=== PATIENT | female | born 1965 | race Caucasian/White ===

== ENCOUNTER 2023-11-06 06:53 | Emergency (ER) | payer OTHER, SELFPAY ==
[2023-11-06 06:55] VITALS: BP 127/89; BMI 27.6
--- NOTE | 2023-11-06 07:08 | ED.GENMED ---
History of Present Illness
General
Chief Complaint: Abdominal Pain
Source: patient and ambulance crew
Exam Limitations: none
Time Seen by Provider: 11/06/23 06:57
Nursing documentation reviewed up to this point in time: agreed with
Travel History
Have you had any contact with someone who has COVID-19?: No
Do you have any symptoms of coronavirus? Fever > 100 degrees, chills, cough, shortness of breath, sore throat, loss of taste or smell, muscle aches, or headache?: No
History of Present Illness
History of Present Illness:
58-year-old female presents emergency department complaining of redness and irritation around colostomy. Symptoms ongoing for the past month. She has been cared for by [facility]. She is concerned because she thought they cut
the colostomy too large.
Past History
Past History
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
Renal calculus, Parotid mass); Negative Asthma or Hypercholesterolemia
ED Past Surgical History: Appendectomy, Bowel resection, Cardiac (Cardiac stent), Gynecological (Cervical Cancer with radiaion and Chemo, Hysterectomy), Orthopedic (Left ankle, left knee surger X 2, Left wrist surgery, Right knee surgery, ),
Tonsilectomy (adnoids) and Other (Colostomy changed to Ileostomy, Ear tubes, Right parotidectomy, Left partial foot amputation)
Social History
Tobacco: Smoker (1ppd)
Alcohol: None
Drug: None
Personal:
Living: with family
Employment: Not employed
Family History
Family History: Early CAD (in patient's father)
Review of Systems
Review of Systems
Allergies reviewed?: Yes
All Other Systems: Not applicable
Constitutional: Reports no symptoms
EENT: Reports no symptoms
Respiratory: Reports no symptoms
Cardiac: Reports no symptoms
ABD/GI: Reports no symptoms
: Reports no symptoms
Musculoskeletal: Reports no symptoms
Skin: Reports rash
Neurological: Reports no symptoms
Endocrine: Reports no symptoms
Hematologic/Lymphatic: Reports no symptoms
Psychiatric: Reports no symptoms
Phy Exam
Physical Exam
Physical Exam:
Physical Exam
General: no apparent distress, not acutely ill
Neck: supple. no meningeal signs. normal posterior pharynx
Heart: s1/s2 regular rate and rhythm, no murmur. equal radial
pulses.
HEENT: Pupils equal round reactive to light, EOMI
Lungs: no acute respiratory distress. clear bilaterally
Abdomen: normal bowel sounds. not tender. no CVAT
Neuro: alert and oriented. no focal neurological deficits cranial nerves II through XII intact
Skin: Erythema about colostomy site
Psychiatric: well kept. interactive and cooperative
Extremities: no edema. no calf tenderness. negative homans. good distal pulses 1, left second and third toe amputation
Course
Orders/Labs/Results
Orders:
Orders
11/06/23 07:07
WOUND/OSTOMY CONSULT Routine
Reason for Consult: irritation around colostomy site
Vital Signs
Initial and Last Documented VS:
Initial Vital Signs
Temp Pulse Resp BP Pulse Ox
98.1 F 66 18 127/89 100
11/06/23 06:55 11/06/23 06:55 11/06/23 06:55 11/06/23 06:55 11/06/23 06:55
Last Documented Vital Signs
Temp Pulse Resp BP Pulse Ox
98.1 F 66 18 127/89 100
11/06/23 06:55 11/06/23 06:55 11/06/23 06:55 11/06/23 06:55 11/06/23 06:55
MDM/Problems Addressed
Differential Diagnosis Includes:
cellulitis, colostomy dysfunction
MDM/Problems Addressed:
58 yo female with colostomy irritation due to poor fitting colostomy. Colostomy care consulted, gave proper fitting colostomy. D/c to NH.
Chronic conditions affecting care: Previous abdomnial surgery and Cancer
Acute Exacerbation and/or Progression of Chronic Illness: Previous abdomnial surgery and Cancer
*Pulse Oximetry
Patient hypoxic: no
*EKG
Interpreted by ED Provider?: NA
*Transcribing Operators Supervisor Interpretation
Rate: Transcribing Operators Supervisor- N/A
*Critical Care Note
Total Time (30-74mins, 75-104mins- exclusive of procedures): Not Applicable
Patient Management
Social determinants of health affecting care: Living situation and Strong social support
Discussion with other providers: Rn Placement (ostomy care and colorectal PA and surgeon Dr. Cosme)
Escalation/DeEscalation of care consider admission/obs:
admit not indicated
ED Attending Note
-
Portions of this chart may have been created with voice recognition software.� Occasional wrong word or��sound alike� substitutions may have occurred due to the inherent limitations of voice recognition software.
Discharge Plan
Departure
Patient Disposition: Jail/SNF
Date of Disposition: 11/06/23
Time of Disposition: 10:04
Patient with high blood pressure during this ER visit?: Yes
Condition: Good
Discharge Problem:
Colostomy complication, unspecified
Instructions: Colostomy care, BLOOD PRESSURE
Prescriptions:
No Action
levothyroxine 25 mcg tablet
25 mcg PO DAILY AT 0700
gabapentin 400 mg Capsule
400 mg PO TID
atorvastatin [Lipitor] 10 mg Tablet
10 mg PO HS
amlodipine [Norvasc] 10 mg Tablet
10 mg PO DAILY
clopidogrel [Plavix] 75 mg Tablet
75 mg PO DAILY
Patient Comments:
08/25/23 may have stop for recent dental process
carvedilol [Coreg] 3.125 mg Tablet
3.125 mg PO BID
pramipexole 0.5 mg Tablet
0.5 mg PO TID
duloxetine [Cymbalta] 60 mg Capsule,Delayed Release(Dr/Ec)
60 mg PO DAILY
oxycodone-acetaminophen [Endocet] 5-325 mg tablet
1 tab PO Q4HPRN PRN (Reason: tooth pain)
Patient Comments:
07/30/2023: last filled 07/28/23, 15 tabs for 3 days from [facility]
ondansetron HCl 4 mg tablet
4 mg PO DAILYPRN PRN (Reason: nausea and vomiting)
hydrocodone-acetaminophen 10-300 mg Tablet
1 tab PO QID
Referrals:
Michael Vargas MD [Family Provider] - Call in 1-3 days for appt
Interventions
Interventions:
*Risk Screen - Suicide Last Done: 11/06/23 06:55
*General Assessment Last Done: 11/06/23 06:55
*Neglect/Abuse Screening Last Done: 11/06/23 06:55
ED- Fall Risk Assessment Last Done: 11/06/23 07:00
*ED COVID-19 Vaccine History Last Done: 11/06/23 06:55
NF-Luascb-Vyfzgfnggm Assessment Last Done: 11/06/23 08:28
--- NOTE | 2023-11-06 09:30 | WOUNDNOTE ---
LILLIANA RN NOTE: Patient admitted with irritation around colostomy site, patient well known to service. [facility] and states the staff have been cutting out wafer too large causing skin irritation. Patient confirmed she is
still having large liquid output. She states that the belt did not do anything in her opinion, has not been using. Since last seen patient states she had a stroke and now has a feeding tube proximal to stoma. FT does not appear to be having any
contributing factors toward leaking ostomy, used only at night, no leakage. Patient states she started eating again and is improving since the stroke, plans to return home. Stoma pink, oval slightly budded, peristomal skin red and irritated, painful
to touch. Applied advanced skin prep to red areas. Angélica seal around stoma, with convex 2 3/4 wafer cut to fit stoma and high output pouch to Aubrey SBD bag. Second set of appliance with Angélica seal (belt if needed) given to patient and instructed
how to apply and connect to drainage system. Detailed instructions given with [employer] codes to order supplies. Patient able to turn self to side, sacrum and heels blanchable red. Patient for transfer back to OR, can call if needs further
assistance.
== END 2023-11-06 12:06 ==
LOC: EMR 06:53
PROVIDERS: EMERGENCY PHYSICIAN Emergency Medicine; FAMILY PHYSICIAN Internal Medicine
DX: K94.03 Colostomy malfunction (principal); I25.10 Atherosclerotic heart disease of native coronary artery without angina pectoris; I10 Essential (primary) hypertension; G47.30 Sleep apnea, unspecified; F32.A Depression, unspecified; E11.40 Type 2 diabetes mellitus with diabetic neuropathy, unspecified; M06.9 Rheumatoid arthritis, unspecified; M79.7 Fibromyalgia; E03.9 Hypothyroidism, unspecified; E11.9 Type 2 diabetes mellitus without complications; K52.0 Gastroenteritis and colitis due to radiation; F43.10 Post-traumatic stress disorder, unspecified; M19.90 Unspecified osteoarthritis, unspecified site; F17.200 Nicotine dependence, unspecified, uncomplicated; I25.2 Old myocardial infarction; Z95.5 Presence of coronary angioplasty implant and graft; Z85.41 Personal history of malignant neoplasm of cervix uteri; Z86.73 Personal history of transient ischemic attack (TIA), and cerebral infarction without residual deficits; Z87.442 Personal history of urinary calculi; Z98.0 Intestinal bypass and anastomosis status; Z90.710 Acquired absence of both cervix and uterus; Z91.040 Latex allergy status; Z88.0 Allergy status to penicillin; Z88.2 Allergy status to sulfonamides; Z88.8 Allergy status to other drugs, medicaments and biological substances; Z91.048 Other nonmedicinal substance allergy status
CPT/HCPCS: 99283

== ENCOUNTER 2024-01-23 03:17 | Inpatient (IN) | payer MEDICARE, SELFPAY ==
[2024-01-22 20:50] VITALS: BMI 29.0
[2024-01-22 20:51] VITALS: BP 139/96
[2024-01-22 20:52] VITALS: BP 139/96
[2024-01-22 21:00] VITALS: BP 102/67
[2024-01-22 21:02] LABS: % Basophils 0.3 % (0-2); % Eosinophils 0.6 % (0-6); % Immature Granulocytes 0.4 % (0-0.5); % Monocytes 3.7 % (1.7-9.3); Absolute Eosinophils 0.1 10^3/uL (0-0.7); Absolute Immature Granulocytes 0.1 10^3/uL (0-0.05); Absolute Lymphocytes 0.5 10^3/uL (1.2-3.4); Absolute Monocytes 0.5 10^3/uL (0.1-0.6); Absolute Neutrophils 11.7 10^3/uL (1.4-6.5); Hematocrit 35.7 % (37.0-47.0); Hemoglobin 12.3 g/dL (12.0-16.0); Mean Corp Hgb Conc. 34.5 g/dL (33.0-37.0); Mean Corpuscular Hgb 31.4 pg (27.0-31.0); Mean Corpuscular Volume 91.1 fL (81.0-99.0); Mean Platelet Volume 8.5 fL (7.4-10.4); Nucleated Red Blood Cells % 0 %; Platelet Count 208 10^3/uL (130-400); Red Blood Cell Count 3.92 10^6/uL (4.20-5.40); Red Cell Dist. Width 13.6 % (11.5-14.5); White Blood Cell Count 12.9 10^3/uL (4.8-10.8)
[2024-01-22 21:28] LABS: ALT (SGPT) 19 U/L (0-35); AST (SGOT) 19 U/L (14-36); Albumin 4.5 g/dl (3.5-5.0); Alkaline Phosphatase 97 U/L (38-126); Blood Urea Nitrogen 31 mg/dl (7-17); Calcium 10.7 mg/dl (8.4-10.2); Carbon Dioxide 15 mmol/L (22-30); Chloride 110 mmol/L (98-107); Estimated Creatinine Clearance 34 ml/min; Glucose 131 mg/dl (70-99); Lipase 83 U/L (23-300); Sodium 137 mmol/L (135-145); Total Bilirubin 0.4 mg/dl (0.2-1.3); Total Protein 8.7 g/dl (6.3-8.2); eGFR 28.42
--- NOTE | 2024-01-22 21:31 | ED.GENMED ---
History of Present Illness
General
Chief Complaint: Abdominal Pain
Source: patient
Exam Limitations: none
Time Seen by Provider: 01/22/24 21:06
Travel History
Have you had any contact with someone who has COVID-19?: No
Do you have any symptoms of coronavirus? Fever > 100 degrees, chills, cough, shortness of breath, sore throat, loss of taste or smell, muscle aches, or headache?: No
History of Present Illness
History of Present Illness:
This is a 58 year old female that is brought in by ambulance with c/o vomiting. Patient states that she has been congested for the past week. States that over the pat 2 days she has gotten worse. States that she also has chest congestion and that
she started with vomiting today. States that she has pain in the abd. States that she has chest pain, SOB, nausea, vomiting, headache, occasional dizziness. Denies any fever, chills, urinary burning.
Past History
Past History
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
Renal calculus, Parotid mass, LVH, GI bleeding, Anemia, PTSD); Negative Asthma or Hypercholesterolemia
ED Past Surgical History: Appendectomy, Bowel resection, Cardiac (Cardiac stent), Gynecological (Cervical Cancer with radiaion and Chemo, Hysterectomy), Orthopedic (Left ankle, left knee surgery X 2, Left wrist surgery, Right knee surgery, ),
Tonsilectomy (adnoids) and Other (Colostomy changed to Ileostomy, Ear tubes, Right parotidectomy, Left great toe and second Toe amputation)
Social History
Tobacco: Smoker (1ppd)
Alcohol: None
Drug: None
Personal:
Living: snf
Employment: Not employed
Family History
Family History: Early CAD (in patient's father)
Review of Systems
Review of Systems
All Other Systems: ROS reviewed and negative except as documented in HPI and ROS
Constitutional: Reports no symptoms; Denies fever or chills
EENT: Reports no symptoms
Respiratory: Reports cough and trouble breathing
Cardiac: Reports chest pain
ABD/GI: Reports abdominal pain, nausea and vomiting
: Reports no symptoms; Denies dysuria, frequency, incontinence or urgency
Musculoskeletal: Reports no symptoms
Skin: Reports no symptoms
Neurological: Reports dizzy (occasional) and headache
Psychiatric: Reports no symptoms
Phy Exam
General Physical Exam
General Presentation: no apparent distress
General age: appears older than age
General Skin: warm and dry
General Habitus: debilitated and elderly
General Mental: alert
General Hydration: appears well hydrated
ENT Exam
ENT Exam: TM's normal, pharynx normal and neck supple
Eye Exam
Eye Exam: EOMI
Cardiovascular Exam
Cardiovascular Exam: regular rate/rhythm, no edema and normal peripheral pulses
Pulmonary Exam
Pulmonary Exam: no respiratory distress, chest non tender, no rhonchi, no wheezing and other (Rale left base, Moist cough noted)
Gastrointestinal Exam
Gastrointestinal Exam: no organomegaly, no pulsatile mass, non distended, tender (mid and right sided tenderness with palpation) and other (Hypoactive bowel sounds)
External Findings: gastrostomy tube and ileostomy
Musculoskeletal Exam
Musculoskeletal Exam: edema and other (No movement on her own of right leg)
Skin Exam
Skin Exam: normal color, warm/dry, no rash and no petechia
Psychiatric Exam
Psychiatric Exam: normal mood/affect
Course
Orders/Labs/Results
Orders:
Orders
01/22/24 20:52
Complete Blood Count/With Diff Urgent
Comprehensive Metabolic Panel Urgent
Lipase Urgent
01/22/24 20:56
Influenza A+B Rapid Molecular Urgent
JIMBO Source: Nasal Swab
Specimen Description:
01/22/24 21:30
CT Abd/pel (oral only)-DH Only Urgent
Comment:
Reason For Exam: Mid and right sided abd pain
0.9% Sodium Chloride 500 ml [Nss] 500 ml IV BOLUS
Iohexol [Omnipaque] See Protocol PO NOW STA
CR Chest - 2 Views Urgent
Comment:
Reason For Exam: COugh congestion
01/22/24 21:36
Ondansetron Injectable [Zofran] 4 mg IV NOW STA
01/22/24 21:48
Troponin I Urgent
01/22/24 21:51
Acetaminophen 1000MG/100Ml [Ofirmev] 1,000 mg in 100 ml .ROUTE .STK-MED
01/22/24 21:53
Acetaminophen 1000MG/100Ml [Ofirmev] 1,000 mg IV NOW STA
01/22/24 22:44
Cefepime HCl [Maxipime] 1,000 mg IV NOW STA
Vancomycin 1 Gram/200 ml [Vancocin] 1 gram in 200 ml IV NOW
Abnormal Lab Results
01/22/24
20:52
WBC 12.9 H 10^3/uL
(4.8-10.8)
RBC 3.92 L 10^6/uL
(4.20-5.40)
Hct 35.7 L %
(37.0-47.0)
MCH 31.4 H pg
(27.0-31.0)
Abs Immat Gran (auto) 0.1 H 10^3/uL
(0-0.05)
Absolute Neuts (auto) 11.7 H 10^3/uL
(1.4-6.5)
Absolute Lymphs (auto) 0.5 L 10^3/uL
(1.2-3.4)
Neutrophils % 91.0 H %
(42.2-75.2)
Lymphocytes % 4.0 L %
(20.5-51.1)
Chloride 110 H mmol/L
(98-107)
Carbon Dioxide 15 L mmol/L
(22-30)
BUN 31 H mg/dl
(7-17)
Creatinine 2.0 H mg/dL
(0.6-1.0)
Glucose 131 H mg/dl
(70-99)
Calcium 10.7 H mg/dl
(8.4-10.2)
Total Protein 8.7 H g/dl
(6.3-8.2)
01/22/24 20:52
01/22/24 20:52
Leukocytosis, Chloride elevation, carbon dioxide low. Chronic renal insufficiency, Hyperglycemia, Hypercalcemia, Total protein elevated. Lipase normal at 83, negative for Influenza, Troponin <0.012
Vital Signs
Initial and Last Documented VS:
Initial Vital Signs
Temp Pulse Resp Pulse Ox
98.7 F 94 14 94
01/22/24 20:50 01/22/24 20:50 01/22/24 20:50 01/22/24 20:50
Last Documented Vital Signs
Temp Pulse Resp BP Pulse Ox
98.7 F 85 23 144/75 93
01/22/24 20:50 01/22/24 22:45 01/22/24 22:45 01/22/24 22:00 01/22/24 22:45
MDM/Problems Addressed
Differential Diagnosis Includes:
PNA, bowel obstruction
MDM/Problems Addressed:
This is a 58 year old female that comes in by Multiple complaints. States that she had congestion, Vomiting abd pain. States that the congestion started a week ago and the vomiting started today. States that she has not eaten in 2-3 days.
Will get labs, CT abd/pelvis. Give Zofran and IV fluids
CT cont- and L5 vertebral bodies. Post hysterectomy. Bilateral renal calculi. Mild levoscoliosis. Hospitalist notified about admission with Pneumonia. Also notified of CT findings os SBO. Patient given IV antibiotics for Pneumonia.
Chronic conditions affecting care: Previous abdomnial surgery
Acute Exacerbation and/or Progression of Chronic Illness: Previous abdomnial surgery
*Radiology
Radiology exam reviewed: radiology read reviewed (ct- STATUS POST COLECTOMY WITH A PARAG'S pouch and left lower quadrant ostomy. Diffusely fluid-filled and dilated loops of small bowel are seen, with a gradual transition to somewhat decompressed
fecalized loops of small bowel seen distally, with decompressed loops seen extending into the ostomy.), all reviewed NAD by ED Provider (CT cont- Constellation of findings likely represents small bowel obstruction with a transition point related to
the ostomy. Multifocal nodular and consolidative opacities in the right lower lobe, most likely representing Pneumonia, possible in the setting of aspiration. Follow-up to radiographic) and other (CT cont- resolution is recommended. Enteric contrast
is seen up to the level of the duodenum at this time. G-tube in place. Additional findings: SFA to SFA graft. Vascular calcifications including coronary artery calcifications. DJD. Pronounced sclerotic endplate degenerative change involving L3,L4 )
*Pulse Oximetry
Patient hypoxic: no
*Critical Care Note
Total Time (30-74mins, 75-104mins- exclusive of procedures): Not Applicable
ED Attending Note
-
Portions of this chart may have been created with voice recognition software.� Occasional wrong word or��sound alike� substitutions may have occurred due to the inherent limitations of voice recognition software.
Discharge Plan
Departure
Patient Disposition: Admit
Date of Disposition: 01/23/24
Time of Disposition: 00:45
Admit to: Telemetry
Presentation/result/management discussed w/ accepting MD/DO: Hospitalist
Patient with high blood pressure during this ER visit?: Yes
Condition: Good
Covid-19: Not Applicable
Discharge Problem:
Lower lobe pneumonia, SBO (small bowel obstruction)
Prescriptions:
No Action
clopidogrel [Plavix] 75 mg Tablet
75 mg PO DAILY
Patient Comments:
08/25/23 may have stop for recent dental process
atorvastatin 40 mg tablet
40 mg PO HS
buspirone 5 mg Tablet
5 mg PO BID
acetaminophen 325 mg Tablet
650 mg PO Q4H PRN (Reason: mild pain/temp>100F)
ammonium lactate 12 % Lotion
1 applic TOPICAL BID
Patient Comments:
01/22/2024: apply to arms/legs/back
loperamide [Imodium A-D] 2 mg Capsule
2 mg PO Q6H PRN (Reason: diarrhea)
hydrocodone-acetaminophen 5-325 mg Tablet
1 tab PO Q6H PRN (Reason: moderate to severe pain)
amlodipine 5 mg tablet
5 mg PO DAILY
venlafaxine 100 mg tablet
100 mg PO BID
magnesium hydroxide [Milk of Magnesia] 400 mg/5 mL Suspension
30 ml PO DAILY PRN (Reason: if no bm x 3 days)
sodium bicarbonate 650 mg Tablet
650 mg PO Q8H
levothyroxine 50 mcg Tablet
50 mcg PO DAILY
bisacodyl [Dulcolax (bisacodyl)] 10 mg Suppository
10 mg DE DAILY PRN (Reason: if mom is ineffective after 24hrs)
Fleet Enema 19-7 gram/118 mL Enema
118 ml DE DAILY PRN (Reason: if dulcolax is ineffective after 24hrs)
gabapentin 300 mg capsule
300 mg PO HS
aspirin 81 mg Tablet,Chewable
81 mg PO DAILY
gabapentin 100 mg capsule
100 mg PO Q6H PRN (Reason: mild-mod pain)
loratadine 10 mg Tablet
10 mg PO DAILY
cholecalciferol (vitamin D3) [Vitamin D3] 25 mcg (1,000 unit) Tablet
50 mcg PO DAILY
pantoprazole [address] For Susp In Packet
20 mg PO DAILY
melatonin 5 mg Tablet
5 mg PO HS
guaifenesin 600 mg Tablet Extended Release 12hr
600 mg PO BID
Referrals:
Michael Vargas MD [Family Provider] -
Interventions
Interventions:
*Risk Screen - Suicide Last Done: 01/22/24 20:48
*General Assessment Last Done: 01/22/24 20:48
*Neglect/Abuse Screening Last Done: 01/22/24 20:48
ED- Fall Risk Assessment Last Done: 01/22/24 22:05
*ED COVID-19 Vaccine History Last Done: 01/22/24 20:48
FS-Xlqfvq-Wamzmtahur Assessment Last Done: 01/22/24 22:05
Discharge Date and Time
Print Language: SYRIAC
[2024-01-22] MEDS: OMNIPAQUE 50 ML PO (21:46)
[2024-01-22] MEDS: ZOFRAN 4 MG IV (21:47)
[2024-01-22] MEDS: NSS 500 IV (21:47)
[2024-01-22] MEDS: OFIRMEV 1000 MG IV (21:53)
[2024-01-22 22:00] VITALS: BP 144/75
[2024-01-22 22:22] LABS: Troponin I < 0.012 ng/ml
[2024-01-22 23:00] VITALS: BP 162/92
[2024-01-22] MEDS: MAXIPIME 1000 MG IV (23:23)
[2024-01-22] MEDS: VANCOCIN 200 IV (23:38)
[2024-01-23] VITALS: BP 141/80
[2024-01-23] MEDS: MORPHINE SULFATE 2 MG IV (00:52)
[2024-01-23 01:00] VITALS: BP 136/87
--- NOTE | 2024-01-23 02:06 | HPS.HSE ---
Family Physician
-
Family Physician: Michael Vargas
Chief Complaint
-
Abd Pain, N/V
History of Present Illness
Patient is a 58y F with PMH significant for R hemiparesis s/p prior CVA, ileostomy, CKD III, hypertension and hypothyroidism who [place] from local [place] complaining of abdominal pain with N/V. Patient states that she developed cold symptoms
about one week ago with coughing and mucus production. yesterday she developed abdominal pain that she initially thought was due to coughing. She then became nauseated and had multiple episodes of bilious emesis. Patient states that she had about
6 episodes so far today. She had a large episode of projectile bilious emesis during my exam.
Patient reports mid abdominal pain that is temporarily alleviated following emesis.
Patient notes that she has had no significant stool or air output from her ileostomy today. Had normal-appearing stool in the device yesterday.
Medical History
Past Medical History
Past Medical History: Reports Other
Additional Past Medical History:
ASCVD (PAD, CVA, CAD)
DM II
CKD 3B
Rheumatoid Arthritis
COPD
RACHEL
Peripheral neuropathy due to chemotherapy
Chronic pain syndrome/chronic opioid dependence
Radiation colitis
Cervical cancer -treated with radiation and chemotherapy
Nephrolithiasis
Chronic thrombocytopenia
Fibromyalgia
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
Parotid Mass
Hypothyroidism
Past Surgical History: Reports Other
Additional Past Surgical History:
Bowel resection and colostomy due to colon perforation
Colostomy Revision x 4 and ultimate Ileostomy (2021)
G-tube Placement
Hemiglossectomy & parotidectomy
Multiple Digital Amputations
Social History
Tobacco: Smoker
Alcohol: None
Drug: None
Family History
Family History: Not pertinent
Allergies / Home Medications
Allergies reflects when Allergies were last updated in [facility] [facility].
Home Medications with original date entered in [facility] [facility]
Allergy/Medication List:
Allergies
Allergy/AdvReac Type Severity Reaction Status Date / Time
adhesive Allergy TAPE-rash Verified 01/22/24 21:36
and itching
infliximab [From Remicade] Allergy Anaphylaxis Verified 01/22/24 21:36
latex Allergy Rash, Verified 01/22/24 21:36
itching,
Hives
Penicillins Allergy Unknown Verified 01/22/24 21:36
Sulfa (Sulfonamide Allergy Hives, rash Verified 01/22/24 21:36
Antibiotics)
Home Medications
clopidogrel 75 mg tablet (Plavix) 75 mg PO DAILY CAD 06/25/23
acetaminophen 325 mg tablet 650 mg PO Q4H PRN mild pain/temp>100F 01/22/24
amlodipine 5 mg tablet 5 mg PO DAILY 01/22/24
ammonium lactate 12 % lotion 1 applic topical BID 01/22/24
aspirin 81 mg chewable tablet 81 mg PO DAILY 01/22/24
atorvastatin 40 mg tablet 40 mg PO HS 01/22/24
bisacodyl 10 mg rectal suppository (Dulcolax (bisacodyl)) 10 mg TN DAILY PRN if mom is ineffective after 24hrs 01/22/24
buspirone 5 mg tablet 5 mg PO BID 01/22/24
cholecalciferol (vitamin D3) 25 mcg (1,000 unit) tablet (Vitamin D3) 50 mcg PO DAILY 01/22/24
gabapentin 100 mg capsule 100 mg PO Q6H PRN mild-mod pain 01/22/24
gabapentin 300 mg capsule 300 mg PO HS 01/22/24
guaifenesin 600 mg tablet, extended release 12 hr 600 mg PO BID 01/22/24
hydrocodone 5 mg-acetaminophen 325 mg tablet 1 tab PO Q6H PRN moderate to severe pain 01/22/24
levothyroxine 50 mcg tablet 50 mcg PO DAILY 01/22/24
loperamide 2 mg capsule (Imodium A-D) 2 mg PO Q6H PRN diarrhea 01/22/24
loratadine 10 mg tablet 10 mg PO DAILY 01/22/24
magnesium hydroxide 400 mg/5 mL oral suspension (Milk of Magnesia) 30 ml PO DAILY PRN if no bm x 3 days 01/22/24
melatonin 5 mg tablet 5 mg PO HS 01/22/24
pantoprazole 40 mg granules delayed-release for susp in packet 20 mg PO DAILY 01/22/24
sodium bicarbonate 650 mg tablet 650 mg PO Q8H 01/22/24
sodium phosphates 19 gram-7 gram/118 mL enema (Fleet Enema) 118 ml TN DAILY PRN if dulcolax is ineffective after 24hrs 01/22/24
venlafaxine 100 mg tablet 100 mg PO BID 01/22/24
Review of Systems
-
History Source: Patient
A 12 point ROS was completed and negative except as noted: Yes
Constitutional: Reports Fever, Fatigue and Chills
EENT: Reports Sore Throat and Runny Nose
Respiratory: Reports Cough and Trouble Breathing; Denies Hemoptysis
Cardiac: Denies Chest Pain, Diaphoresis or Palpitations
Abdomen/GI: Reports Abdominal Pain, Nausea and Vomiting; Denies Diarrhea, Constipated, Bloody Stools or Black Stools
: Denies Dysuria or Frequency
Musculoskeletal: Denies Joint Pain or Edema
Neurological: Reports Headache; Denies Dizzy
Psych: Denies Depression or Anxiety
Physical Exam
Vital Signs
Vital Signs
Temp Pulse Resp BP Pulse Ox
98.7 F 85 23 144/75 93
01/22/24 20:50 01/22/24 22:45 01/22/24 22:45 01/22/24 22:00 01/22/24 22:45
Physical Exam
General: Other (Ill-appearing 58y F in mild - moderate distress due to abdominal pain / nausea.)
HEENT: Moist mucous membranes and Other (Mild - moderate dysarthria s/p prior surgery.)
Respiratory: Other (Coarse breath sounds at the bases bilaterally. No rales.)
Cardiac: S1/S2, Regular Rhythm and Murmur (II/ MINDY)
GI: Other (Ileostomy intact. Device with scant liquid. No significant stool / gas. Abdomen with decreased bowel sounds. Mildly / diffusely tender.)
Musculoskeletal: Other (Prior digital amputations. No significant edema.)
Neuro: Awake, Alert, Oriented and Other (Dense R hemiparesis - unchanged. No new focal deficits.)
Laboratory Results
-
01/22/24 20:52
01/22/24 20:52
Laboratory Results
Total Bilirubin 0.4 mg/dl (0.2-1.3) 01/22/24 20:52
AST 19 U/L (14-36) 01/22/24 20:52
ALT 19 U/L (0-35) 01/22/24 20:52
Alkaline Phosphatase 97 U/L (38-126) 01/22/24 20:52
Troponin I < 0.012 ng/ml 01/22/24 21:48
Lipase 83 U/L (23-300) 01/22/24 20:52
Impression/Plan
-
A/P: Patient is a 58y F with complicated PMH who presents to ED complaining of abdominal pain with N/V.
SBO
- Admit for further evaluation and treatment.
- CT scan done in the ED today shows SBO consistent with clinical presentation.
- Patient had an outpatient obstruction series done 01/21 that was interpreted as normal at the time.
- Open G-tube to gravity drainage for now.
- Surgery evaluation.
- Follow for ostomy output, improvement in symptoms, etc.
- Supportive care including pain control, antiemetics, IVFs, etc.
Aspiration Pneumonitis / Pneumonia
- Patient with recent cold symptoms, cough, etc - actually preceding her abdominal complaints.
- CXR unremarkable (inpatient and outpatient) however CT scan suggests R base infiltrate.
- Cover with Unasyn for now and follow for clinical changes.
- Discussed PCN allergy - this was not previously on patient record ans she received Unasyn her last admission here with no issues.
- Patient thought that she was allergic to PCN 'as a baby' and denies any recent issues / events that led to new allergy listing since her last hospital stay here.
- Supportive care including nebs, O2, etc.
ASCVD
- Significant history of CVA, PAD, etc.
- Stable. No chest pain, no new focal deficits, no new LE wounds, etc.
- Hold PO medications acutely given SBO - resume when able.
- Follow for any new symptoms / complaints.
CKD III
- Stable. Renal function is at / near known baseline.
- Follow for any changes.
- Gentle IVFs while NPO.
Hypothyroidism
- Hold T4 supplementation acutely.
- Resume when able to take PO.
- Consider IV replacement if PO state is prolonged.
Chronic Pain / Fibromyalgia
- Stable. Resume usual pain controlling meds once able to take PO.
- IV narcotic for acute pain / SBO / etc.
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
Peripheral Neuropathy secondary to chemotherapy
Dysarthria s/p Partial Glossectomy
Diet-Controlled DM-II
- Stable. No acute issues.
- Follow for any changes.
DVT Prophylaxis: Heparin Subcut
Code Status: DNR
[2024-01-23] MEDS: DILAUDID 0.5 MG IV ×4 (03:06→19:54)
[2024-01-23] MEDS: NSS 1000 IV ×2 (05:16→22:05)
[2024-01-23 06:38] LABS: Hematocrit 35.2 % (37.0-47.0); Hemoglobin 11.8 g/dL (12.0-16.0); Mean Corp Hgb Conc. 33.5 g/dL (33.0-37.0); Mean Corpuscular Hgb 31.1 pg (27.0-31.0); Mean Corpuscular Volume 92.6 fL (81.0-99.0); Mean Platelet Volume 9.1 fL (7.4-10.4); Platelet Count 185 10^3/uL (130-400); Red Cell Dist. Width 13.7 % (11.5-14.5); White Blood Cell Count 10.7 10^3/uL (4.8-10.8)
[2024-01-23 06:59] LABS: Blood Urea Nitrogen 40 mg/dl (7-17); Carbon Dioxide 15 mmol/L (22-30); Chloride 110 mmol/L (98-107); Estimated Creatinine Clearance 28 ml/min; Glucose 121 mg/dl (70-99); Potassium 3.9 mmol/L (3.5-5.1); Sodium 138 mmol/L (135-145); eGFR 22.84
[2024-01-23 07:03] LABS: Glucose - Point of Care 109 mg/dl (70-99)
[2024-01-23] MEDS: HEPARIN 5000 UNITS SC ×2 (07:55→19:40)
[2024-01-23] MEDS: PROTONIX IV 40 MG IV (07:55)
[2024-01-23 07:57] VITALS: BP 136/82
[2024-01-23 07:59] VITALS: BMI 28.8
--- NOTE | 2024-01-23 09:09 | CON.GS ---
Consultation
-
Requesting Provider: Lucho
Performing Provider: Julia
Reason for Consultation: Abd pain
Medical History
-
Chief Complaint: Abd pain
History of Present Illness:
58F with acute onset abd pain that began yesterday. Described as sharp pain to mid abd without exacerbating factors, did get limited relief with vomiting. A/w n/v. Reports stoma has not been producing since yesterday. Denies dietary indiscretion.
Reports recent URI with cough.
Past Medical History
Past Medical History: Other (ASCVD (PAD, CVA, CAD) DM II CKD 3B Rheumatoid Arthritis COPD RACHEL Peripheral neuropathy due to chemotherapy Chronic pain syndrome/chronic opioid dependence Radiation colitis Cervical cancer -treated with radiation and
chemotherapy Nephrolithiasis Chronic thrombocytopenia Fibromyalgia Right Hemiparesi)
Past Surgical History: Other (Bowel resection and colostomy due to colon perforation Colostomy Revision x 4 and ultimate Ileostomy (2021) G-tube Placement Hemiglossectomy & parotidectomy Multiple Digital Amputations, VIHR with unilateral TAR 2021)
Social History
Tobacco: Smoker
Alcohol: None
Drug: None
Allergies / Home Medications
Allergy/AdvReac Type Severity Reaction Status Date / Time
adhesive Allergy TAPE-rash Verified 01/22/24 21:36
and itching
infliximab [From Remicade] Allergy Anaphylaxis Verified 01/22/24 21:36
latex Allergy Rash, Verified 01/22/24 21:36
itching,
Hives
Penicillins Allergy Unknown, Verified 01/23/24 08:55
tolerated
amoxicillin
and
ampicillin
in the past
Sulfa (Sulfonamide Allergy Hives, rash Verified 01/22/24 21:36
Antibiotics)
�Medication �Instructions �Recorded �Confirmed �Type
clopidogrel 75 mg tablet (Plavix) 75 mg PO DAILY CAD 06/25/23 01/22/24 History
acetaminophen 325 mg tablet 650 mg PO Q4H PRN mild 01/22/24 01/22/24 History
pain/temp>100F
amlodipine 5 mg tablet 5 mg PO DAILY 01/22/24 01/22/24 History
ammonium lactate 12 % lotion 1 applic topical BID 01/22/24 01/22/24 History
aspirin 81 mg chewable tablet 81 mg PO DAILY 01/22/24 01/22/24 History
atorvastatin 40 mg tablet 40 mg PO HS 01/22/24 01/22/24 History
bisacodyl 10 mg rectal suppository 10 mg NM DAILY PRN if mom is 01/22/24 01/22/24 History
(Dulcolax (bisacodyl)) ineffective after 24hrs
buspirone 5 mg tablet 5 mg PO BID 01/22/24 01/22/24 History
cholecalciferol (vitamin D3) 25 50 mcg PO DAILY 01/22/24 01/22/24 History
mcg (1,000 unit) tablet (Vitamin
D3)
gabapentin 100 mg capsule 100 mg PO Q6H PRN mild-mod pain 01/22/24 01/22/24 History
gabapentin 300 mg capsule 300 mg PO HS 01/22/24 01/22/24 History
guaifenesin 600 mg tablet, 600 mg PO BID 01/22/24 01/22/24 History
extended release 12 hr
hydrocodone 5 mg-acetaminophen 325 1 tab PO Q6H PRN moderate to 01/22/24 01/22/24 History
mg tablet severe pain
levothyroxine 50 mcg tablet 50 mcg PO DAILY 01/22/24 01/22/24 History
loperamide 2 mg capsule (Imodium 2 mg PO Q6H PRN diarrhea 01/22/24 01/22/24 History
A-D)
loratadine 10 mg tablet 10 mg PO DAILY 01/22/24 01/22/24 History
magnesium hydroxide 400 mg/5 mL 30 ml PO DAILY PRN if no bm x 3 01/22/24 01/22/24 History
oral suspension (Milk of Magnesia) days
melatonin 5 mg tablet 5 mg PO HS 01/22/24 01/22/24 History
pantoprazole 40 mg granules 20 mg PO DAILY 01/22/24 01/22/24 History
delayed-release for susp in packet
sodium bicarbonate 650 mg tablet 650 mg PO Q8H 01/22/24 01/22/24 History
sodium phosphates 19 gram-7 118 ml NM DAILY PRN if dulcolax is 01/22/24 01/22/24 History
gram/118 mL enema (Fleet Enema) ineffective after 24hrs
venlafaxine 100 mg tablet 100 mg PO BID 01/22/24 01/22/24 History
Review of Systems
-
A 10 point review of systems was completed, and was negative except as per HPI.
Physical Exam
Vital Signs
Temp Pulse Resp BP Pulse Ox
97.4 F 86 22 136/82 91
01/23/24 07:57 01/23/24 07:57 01/23/24 07:57 01/23/24 07:57 01/23/24 07:57
01/22/24 01/23/24 01/24/24
06:59 06:59 06:59
Actual Weight 84 kg 83.4 kg
Body Mass Index (BMI) 28.8
Lab Results
01/23/24 05:59
01/23/24 05:59
WBC 10.7 10^3/uL (4.8-10.8) 01/23/24 05:59
Hgb 11.8 g/dL (12.0-16.0) L 01/23/24 05:59
Hct 35.2 % (37.0-47.0) L 01/23/24 05:59
Plt Count 185 10^3/uL (130-400) 01/23/24 05:59
Abs Immat Gran (auto) 0.1 10^3/uL (0-0.05) H 01/22/24 20:52
Neutrophils % 91.0 % (42.2-75.2) H 01/22/24 20:52
Physical Exam
General: No Apparent Distress
HEENT: Normocephalic
GI: Soft, Non Distended and Tender (diffuse mild ttp, stoma with thick stool and some liquid in the bag, g-tube grav bag with thin bilious fluid)
Skin: Warm and Dry
Neuro: AO x 3
Psych: Calm
Data Reviewed
-
CT Scan: Image Personally Visualized and interpreted, Report Reviewed by me, Discussed with Nurse and Discussed with Patient
Labs: Labs Reviewed by me
Old Records: Reviewed
Assessment / Plan
-
58F with abd pain, unclear etiology
AFVSS, pain remains, stoma is putting out thick stool and liquid stool now, 400cc bilious fluid in g-tubge gravity bag likely represents PO contrast
Mild leukocytosis on admit has resolved
CT A/P with dilated sb, sb feces sign at the terminal end as it approaches the ileostomy, no discrete transition point, there appears to be a gradual taper of the sb caliber, no signs of bowel threat or compromise
Plan:
Monitor stoma for continued output
Cont NPO/IVF/G-tube to grav
If no improvement in symptoms by tomorrow, consider PO contrast study
KUB tomorrow though contrast has likely drained out via g-tube
Will follow
[2024-01-23 09:40] LABS: Glycohemoglobin (HgbA1c) 5.2 % (4.0-5.6)
[2024-01-23] MEDS: VIBRAMYCIN 260 MG IV ×2 (10:04→22:04)
[2024-01-23] MEDS: ROCEPHIN 1000 MG IV (10:04)
[2024-01-23] MEDS: STERILE WATER FOR INJECTION 10 ML IV (10:04)
--- NOTE | 2024-01-23 11:54 | PTCARENOTE ---
Pt starting to have good output from ileostomy. Requesting to eat/drink but remains NPO - tolerating ice chips well.
[2024-01-23 12:45] LABS: Glucose - Point of Care 107 mg/dl (70-99)
--- NOTE | 2024-01-23 13:25 | W.PN.HOSP.TC ---
Today's Communication/Plan
-
All discussed with the patient
Discussed with the nurse
Assessment / Plan
Assessment / Plan
Physical exam:
General: Awake, alert and oriented x3, not in distress and holds appropriate conversation.
HEENT: No active discharge, ecchymosis or bruising, moist lips, tongue and mucous membrane.
Eyes: No discharge or red conjunctiva, no nystagmus, pupils are reactive and equal
Neck:Supple, no JVD no bruit no goiter.
Respiratory: Normal AP contour and diameter, normal chest wall movement, normal respiratory effort, no respiratory distress,
Lungs: Good air entry bilaterally, no wheezing or rhonchi, no rales or crackles
Heart: S1, S2 regular, normal rate, no added sound.
Gastrointestinal: Ileostomy in the left side of the abdomen and G-tube in epigastric area, scars, absent bowel sounds, soft, mild generalized tenderness with no guarding or rigidity or organomegaly
Musculoskeletal: , no chest wall abnormality or tenderness. All joints and extremities have good range of motion, no muscle tenderness or any joint swelling or tenderness.
Extremities: Lower extremity pitting edema, good peripheral pulses, good range of motion
Neurological: Awake, alert and oriented x3, speech clear and comprehensive, good muscle tone, normal sensory and motor function left extremity was decreased motor and sensation of the right extremity especially right lower EXTR
Psychiatric: Normal mood, normal thought and judgment, normal affect,
Assessment and plan:
A/P: Patient is a 58y F with complicated PMH who presents to ED complaining of abdominal pain with N/V.
SBO: No history of the prior abdominal surgery likely adhesion related,
- Admit for further evaluation and treatment.
- CT scan done in the ED today shows SBO consistent with clinical presentation.
- Patient had an outpatient obstruction series done 01/21 that was interpreted as normal at the time.
- Open G-tube to gravity drainage for now.
- Surgery input appreciated, the note has been reviewed, if no improvement then may consider contrast study in the morning
- Follow for ostomy output, improvement in symptoms, etc.
- Supportive care including pain control, antiemetics, IVFs, etc.
-Recheck labs
Aspiration Pneumonitis / Pneumonia
- Patient with recent cold symptoms, cough, etc - actually preceding her abdominal complaints.
- CXR unremarkable (inpatient and outpatient) however CT scan suggests R base infiltrate.
- Covered with Unasyn changed to Rocephin and doxycycline
- Patient thought that she was allergic to PCN 'as a baby' and denies any recent issues / events that led to new allergy listing since her last hospital stay here.
- Supportive care including nebs, O2, etc.
-Monitor vitals
ASCVD
- Significant history of CVA, PAD, etc.
- Stable. No chest pain, no new focal deficits, no new LE wounds, etc.
- Hold PO medications acutely given SBO - resume when able.
- Follow for any new symptoms / complaints.
CKD III
- Stable. Renal function is Little worse compared to yesterday, yesterday was 2.0 today is 2.4
- Follow for any changes.
- Gentle IVFs while NPO.
Hypothyroidism
- Hold T4 supplementation acutely.
- Resume when able to take PO.
- Consider IV replacement if PO state is prolonged at least for 5.
Chronic Pain / Fibromyalgia
- Stable. Resume usual pain controlling meds once able to take PO.
- IV narcotic for acute pain / SBO / etc.
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
Peripheral Neuropathy secondary to chemotherapy
Dysarthria s/p Partial Glossectomy
Diet-Controlled DM-II
- Stable. No acute issues.
- Follow for any changes.
DVT Prophylaxis: Heparin Subcut
Code Status: DNR
Anticipated Discharge: > 48 hours
Subjective/Interval History
-
Date of Service: January 23, 2024
Seen and examined, awake and alert, still complaining of abdominal pain but better than before, no nausea or vomiting., No fever or chill or any chest pain or shortness of breath, no headache or vision change, however hemiplegia on the right
extremity and she is in half-way home.
Her ileostomy putting out some stool, and the G tube connected to the gravity and draining some bile colored material. NPO.
Objective Data
-
Labs:
Laboratory Results
01/23/24
05:59
WBC 10.7
Hgb 11.8 L
Hct 35.2 L
Plt Count 185
Sodium 138
Potassium 3.9
Chloride 110 H
Carbon Dioxide 15 L
BUN 40 H
Creatinine 2.4 H
Glucose 121 H
Calcium 10.0
Vital Signs:
Vital Signs
Temp Pulse Resp BP Pulse Ox
97.4 F 86 22 136/82 91
01/23/24 07:57 01/23/24 07:57 01/23/24 07:57 01/23/24 07:57 01/23/24 11:47
I&O
01/22/24 01/23/24 01/24/24
07:59 07:59 07:59
Intake Total 300 / 300 0 / 0
Output Total 1150 / 1150
Balance 300 / 300 -1150 / -1150
Review of Systems
-
All other systems: Reviewed and negative
[2024-01-23 15:36] VITALS: BP 109/73
[2024-01-23 17:27] LABS: Glucose - Point of Care 146 mg/dl (70-99)
[2024-01-23 22:49] VITALS: BP 119/75
[2024-01-24 00:21] LABS: Glucose - Point of Care 115 mg/dl (70-99)
[2024-01-24 06:00] VITALS: BMI 26.7
[2024-01-24 06:01] LABS: Glucose - Point of Care 107 mg/dl (70-99)
[2024-01-24 06:09] LABS: % Basophils 0.5 % (0-2); % Eosinophils 3.1 % (0-6); % Immature Granulocytes 0.7 % (0-0.5); % Lymphocytes 5.9 % (20.5-51.1); % Monocytes 10.8 % (1.7-9.3); Absolute Basophils 0.1 10^3/uL (0-0.2); Absolute Eosinophils 0.3 10^3/uL (0-0.7); Absolute Immature Granulocytes 0.1 10^3/uL (0-0.05); Absolute Lymphocytes 0.7 10^3/uL (1.2-3.4); Absolute Monocytes 1.2 10^3/uL (0.1-0.6); Absolute Neutrophils 8.7 10^3/uL (1.4-6.5); Hematocrit 30.8 % (37.0-47.0); Hemoglobin 10.2 g/dL (12.0-16.0); Mean Corp Hgb Conc. 33.1 g/dL (33.0-37.0); Mean Corpuscular Hgb 30.8 pg (27.0-31.0); Mean Corpuscular Volume 93.1 fL (81.0-99.0); Mean Platelet Volume 8.9 fL (7.4-10.4); Nucleated Red Blood Cells % 0 %; Platelet Count 152 10^3/uL (130-400); Red Blood Cell Count 3.31 10^6/uL (4.20-5.40); Red Cell Dist. Width 13.7 % (11.5-14.5); White Blood Cell Count 11.1 10^3/uL (4.8-10.8)
[2024-01-24] MEDS: NSS 1000 IV (06:19)
[2024-01-24] MEDS: DILAUDID 0.5 MG IV ×2 (06:20→20:31)
[2024-01-24 06:51] LABS: Blood Urea Nitrogen 46 mg/dl (7-17); Calcium 9.4 mg/dl (8.4-10.2); Carbon Dioxide 14 mmol/L (22-30); Chloride 108 mmol/L (98-107); Estimated Creatinine Clearance 25 ml/min; Glucose 100 mg/dl (70-99); Magnesium 1.8 mg/dl (1.6-2.3); Potassium 3.8 mmol/L (3.5-5.1); Sodium 138 mmol/L (135-145); eGFR 19.83
[2024-01-24] MEDS: HEPARIN 5000 UNITS SC ×2 (09:25→20:30)
[2024-01-24] MEDS: ROCEPHIN 1000 MG IV (09:29)
[2024-01-24] MEDS: PROTONIX IV 40 MG IV (09:29)
[2024-01-24 09:34] VITALS: BP 139/80
[2024-01-24] MEDS: VIBRAMYCIN 260 MG IV ×2 (09:35→22:27)
[2024-01-24] MEDS: FLUSH (NSS) 1 FLUSH IV ×2 (09:50→11:34)
[2024-01-24] MEDS: STERILE WATER FOR INJECTION 10 ML IV (09:50)
[2024-01-24] MEDS: NSS IV (09:54)
[2024-01-24 10:00] VITALS: BP 147/89
[2024-01-24] MEDS: LR 1000 IV ×2 (11:33→22:27)
--- NOTE | 2024-01-24 11:42 | CM ---
Addendum entered by Skylar Langley RN 01/24/24 11:52:
[facility]
Report
[phone]
FAx
[phone]
Original Note:
CM reviewed medical records. Patient is a LTC resident of [facility]. Plan to return on discharge.
PLAN: return to [facility].
--- NOTE | 2024-01-24 12:10 | W.PN.HOSP.TC ---
Addendum entered and electronically signed by Linda Sierra MD 01/24/24 14:12:
This patient been agitated on and off today she wanted to leave the hospital, and we calm it down few time and she would leave AGAINST MEDICAL ADVICE unfortunately because of history of confusion and prior stroke she has no capacity to make the
decision.
I called her family called her and left a message and I called the patient's mother who is a second contact and she aware of her condition and she agrees that she is not ready for discharge, she was started on a clear liquid diet by surgery
and mother agree that we need to keep you in the hospital even if we need to make a little sleepy through medication.
Will give her some IM Ativan as she pulled her line out,
Will closely monitor
Discussed with the nurse
Original Note:
Today's Communication/Plan
-
All discussed with the patient
Discussed with the nurse
Assessment / Plan
Assessment / Plan
Physical exam:
General: Pleasantly confused awake, alert and oriented x3, not in distress and holds appropriate conversation.
HEENT: No active discharge, ecchymosis or bruising, moist lips, tongue and mucous membrane.
Eyes: No discharge or red conjunctiva, no nystagmus, pupils are reactive and equal
Neck:Supple, no JVD no bruit no goiter.
Respiratory: Normal AP contour and diameter, normal chest wall movement, normal respiratory effort, no respiratory distress,
Lungs: Good air entry bilaterally, no wheezing or rhonchi, no rales or crackles
Heart: S1, S2 regular, normal rate, no added sound.
Gastrointestinal: Ileostomy in the left side of the abdomen the bag containing dark liquid material, and G-tube in epigastric area, scars, absent bowel sounds, soft, mild generalized tenderness with no guarding or rigidity or organomegaly
Extremities: Lower extremity pitting edema, good peripheral pulses, good range of motion
Neurological: Awake, alert, speech clear and comprehensive, good muscle tone, normal sensory and motor function left extremity was decreased motor and sensation of the right extremity especially right lower EXTR
Psychiatric: Normal mood, question thought and judgment, normal affect,
Assessment and plan:
A/P: Patient is a 58y F with complicated PMH who presents to ED complaining of abdominal pain with N/V.
Metabolic acidosis:
Given 500 Ringer lactate and change fluid from normal saline to Ringer lactate at 100 mill per hour
Recheck lab
If not improved then may consider nephrology consult
SBO: No history of the prior abdominal surgery likely adhesion related, still quite symptomatic and a large amount of the drainage from the PEG tube to suction around 600 mill overnight
- Admit for further evaluation and treatment.
- CT scan done in the ED today shows SBO consistent with clinical presentation.
- Patient had an outpatient obstruction series done 01/21 that was interpreted as normal at the time.
-Continue G-tube to gravity drainage for now.
- Surgery input appreciated, the note has been reviewed, if no improvement then may consider contrast study in the morning
- Follow for ostomy output, improvement in symptoms, etc.
- Supportive care including pain control, antiemetics, IVFs, etc.
-Recheck labs
Aspiration Pneumonitis / Pneumonia
- Patient with recent cold symptoms, cough, etc - actually preceding her abdominal complaints.
- CXR unremarkable (inpatient and outpatient) however CT scan suggests R base infiltrate.
-Continue Rocephin and doxycycline
- Patient thought that she was allergic to PCN 'as a baby' and denies any recent issues / events that led to new allergy listing since her last hospital stay here.
- Supportive care including nebs, O2, etc.
-Monitor vitals
ASCVD
- Significant history of CVA, PAD, etc.
- Stable. No chest pain, no new focal deficits, no new LE wounds, etc.
- Hold PO medications acutely given SBO - resume when able.
- Follow for any new symptoms / complaints.
CKD III
- Stable. Little worse compared to yesterday, yesterday was 2.4 today is 27
- Follow for any changes.
-Change fluid to Ringer lactate
-If continue to get worse consider nephrology
Hypothyroidism
- Hold T4 supplementation acutely.
- Resume when able to take PO.
- Consider IV replacement if PO state is prolonged at least for 5.
Chronic Pain / Fibromyalgia
- Stable. Resume usual pain controlling meds once able to take PO.
- IV narcotic for acute pain / SBO / etc.
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
Peripheral Neuropathy secondary to chemotherapy
Dysarthria s/p Partial Glossectomy
Diet-Controlled DM-II
- Stable. No acute issues.
- Follow for any changes.
DVT Prophylaxis: Heparin Subcut
Code Status: DNR
Not ready for discharge she still symptomatic and n.p.o.
Anticipated Discharge: > 48 hours
Subjective/Interval History
-
Date of Service: January 24, 2024
Seen and examined, looks and feels better than yesterday, still not getting any feeding and PEG tube connected to low suction, she is feeling liquid material from the ileostomy site.
She wants to go home and be discharged, denies abdominal pain and no nausea or vomiting. No fever or chill.
Over manage weight at 600 drainage from the PEG tube
Pleasantly confused
Objective Data
-
Labs:
Laboratory Results
01/24/24
05:56
WBC 11.1 H
Hgb 10.2 L
Hct 30.8 L
Plt Count 152
Sodium 138
Potassium 3.8
Chloride 108 H
Carbon Dioxide 14 L*
BUN 46 H
Creatinine 2.7 H
Glucose 100 H
Calcium 9.4
Vital Signs:
Vital Signs
Temp Pulse Resp BP Pulse Ox
99.8 F 82 20 119/75 92
01/23/24 22:49 01/23/24 22:49 01/23/24 22:49 01/23/24 22:49 01/24/24 01:49
I&O
01/23/24 01/24/24 01/25/24
07:59 07:59 07:59
Intake Total 300 / 300 1200 / 1200
Output Total 2900 / 2900
Balance 300 / 300 -1700 / -1700
Review of Systems
-
All other systems: Reviewed and negative
--- NOTE | 2024-01-24 12:37 | W.PN.GS2 ---
Today's Communication / Plan
-
`
Assessment / Plan
-
Assessment: 58F with abd pain, unclear etiology; possible enteritis, possible ileus in setting of recent URI/aspiration pna/pneumonitis, possible partial small bowel obstruction however on review of CT imaging there is no discrete transition point
and moderate generalized small bowel distention is all the way up through to the level of the fascia where her ileostomy is.
No pneumatosis, no portal venous gas, no organizing fluid collections or significant ascites, no signs of closed-loop bowel obstruction
AFVSS
Abdominal examination with tenderness but not peritonitic
Significant liquid output in ileostomy; G-tube output is diminishing
Metabolic acidosis/elevated BUN/creatinine noted -no signs of bowel ischemia or compromise as driving factor for these laboratory findings; may just reflect hypovolemia and under resuscitation
Plan: Okay to G-tube -return to gravity drainage for nausea/vomiting
Liquid diet okay if patient can tolerate
Defer IV fluid hydration electrolyte management to hospitalist service.
Will follow
If patient fails p.o. challenge then consider contrast imaging study such as small bowel follow-through.
Subjective Data
-
Date of Service: January 24, 2024
Patient seen and examined, remains in emergency department
Sleeping but easily arousable
Reports some abdominal pain
Denies nausea
Requesting to drink liquids or states that she will go home
Objective Data
-
Intake and Output
01/23/24 01/24/24 01/25/24
06:59 06:59 06:59
Intake Total 300 / 300 1200 / 1200
Output Total 2900 / 2900
Balance 300 / 300 -1700 / -1700
Intake:
IV fluids (Total) 300 / 300 1200 / 1200
Nss 1,000 ml @ 100 mls/hr IV . 300 / 300
Q10H [facility] Rx#:[id number]
Amount instilled into GI Tube ( 0 / 0
Total)
Gastrostomy 0 / 0
Output:
Liquid stool amount 1899
Ileostomy 1899
Gastrointestinal tube output ( 999 / 999
Total)
Gastrostomy 999 / 999
Other:
How many times incontinent 2 1
How many times incontinent 2
SATURATED amount urine
Vital Signs
Temp Pulse Resp BP Pulse Ox
99.8 F 82 20 119/75 92
01/23/24 22:49 01/23/24 22:49 01/23/24 22:49 01/23/24 22:49 01/24/24 01:49
Lab Results
01/24/24 05:56
01/24/24 05:56
Calcium 9.4 mg/dl (8.4-10.2) 01/24/24 05:56
Magnesium 1.8 mg/dl (1.6-2.3) 01/24/24 05:56
Total Bilirubin 0.4 mg/dl (0.2-1.3) 01/22/24 20:52
AST 19 U/L (14-36) 01/22/24 20:52
ALT 19 U/L (0-35) 01/22/24 20:52
Alkaline Phosphatase 97 U/L (38-126) 01/22/24 20:52
Total Protein 8.7 g/dl (6.3-8.2) H 01/22/24 20:52
Albumin 4.5 g/dl (3.5-5.0) 01/22/24 20:52
Physical Exam
-
NAD, sleepy but AAOx3, chronically ill-appearing
ABD: Soft, not distended, generalized tenderness on palpation
G-tube to gravity some bilious output
Left-sided ileostomy with liquid succus and some semiformed
--- NOTE | 2024-01-24 13:00 | WOUNDNOTE ---
[facility] RN note: Patient admitted with SBO. Patient admitted from SNF.
See H&P for complete history.
PMH: R CVA, CKD3, pneumonia, G tube, ileostomy 2021 (has previous colostomy).
Wound Location and type/assessment: Patient admitted with: several scratch garza vs abrasions on buttocks. Inner thigh slightly red from diaper use. Mild shamika MASD. Heels blanchable red.
Appetite: currently NPO.
Pressure redistribution devices in place: [employer] Accumax. Patient assists with turning in bed.
Plan: Current ostomy appliance intact and appears to have been changed within last 1-2 days ([place] wafer # [id number], Aubrey pouch #[id number]). Left ostomy supplies she also uses ([place] convex wafer # [id number], Angélica seals, Aubrey pouch #[id number]).
Colostomy pink and flush. Emptied liquid dark brown effluent from pouch. Patient incontinent of urine. Shamika care given and patient turned and repositioned with help from RN Ketan. Calazime ointment applied to sacral/buttocks. Heels off bed with
pillow and an air chair cushion. Instructed patient pressure injury prevention measures.
Nursing care assist patient with routine ostomy care and pouch changes.
Care plan to be updated and will follow peripherally as needed.
[2024-01-24] MEDS: LR 500 IV (13:05)
[2024-01-24 13:11] LABS: Glucose - Point of Care 106 mg/dl (70-99)
--- NOTE | 2024-01-24 13:11 | WOUNDNOTE ---
HEELS (BLANCHABLE RED)
[2024-01-24] MEDS: ATIVAN 1 MG IM (14:40)
[2024-01-24 16:00] VITALS: BP 136/79
[2024-01-24 18:08] VITALS: BP 121/72
[2024-01-24 18:12] LABS: Glucose - Point of Care 84 mg/dl (70-99)
--- NOTE | 2024-01-24 18:53 | PTCARENOTE ---
Pt advanced to Clear Liquid diet. Failed bedside Swallow Eval. Immediately coughed. Wet voice quality for 5 minutes after drinking. Unable to clear throat. Pt placed NPO per protocol. Became very upset. Yelling. Attempting to throw herself over the
bed. Removed IV lines. PRN Ativan IM administered. New #24 placed in (R) wrist. LR infusing @ 100ml/hr.
[2024-01-24 19:40] VITALS: BP 153/89; BMI 27.4
[2024-01-24 23:48] VITALS: BP 182/90
[2024-01-25 00:22] LABS: Glucose - Point of Care 85 mg/dl (70-99)
[2024-01-25] MEDS: DILAUDID 0.5 MG IV ×4 (05:58→21:05)
[2024-01-25 06:00] VITALS: BMI 27.9
[2024-01-25 06:14] LABS: Glucose - Point of Care 92 mg/dl (70-99)
[2024-01-25 07:30] VITALS: BP 152/76
[2024-01-25 07:44] LABS: Hematocrit 28.9 % (37.0-47.0); Hemoglobin 9.4 g/dL (12.0-16.0); Mean Corp Hgb Conc. 32.5 g/dL (33.0-37.0); Mean Corpuscular Hgb 30.5 pg (27.0-31.0); Mean Corpuscular Volume 93.8 fL (81.0-99.0); Mean Platelet Volume 8.6 fL (7.4-10.4); Platelet Count 140 10^3/uL (130-400); Red Blood Cell Count 3.08 10^6/uL (4.20-5.40); Red Cell Dist. Width 13.6 % (11.5-14.5); White Blood Cell Count 10.6 10^3/uL (4.8-10.8)
[2024-01-25 08:12] LABS: Blood Urea Nitrogen 39 mg/dl (7-17); Calcium 9.5 mg/dl (8.4-10.2); Carbon Dioxide 13 mmol/L (22-30); Chloride 112 mmol/L (98-107); Estimated Creatinine Clearance 33 ml/min; Glucose 106 mg/dl (70-99); Magnesium 1.7 mg/dl (1.6-2.3); Potassium 3.2 mmol/L (3.5-5.1); Sodium 137 mmol/L (135-145); eGFR 30.23
--- NOTE | 2024-01-25 09:03 | W.PN.GS2 ---
Today's Communication / Plan
-
Positive return of bowel function, okay to advance diet via G-tube and/or p.o.
Assessment / Plan
-
Assessment: 58F with history of PAD/CVA/CAD, DM 2, CKD, rheumatoid arthritis, COPD, RACHEL, cervical cancer, peripheral neuropathy secondary to chemotherapy, radiation colitis, chronic pain on opioids, colon resection and colostomy secondary to
perforation status post 4 revisions with ultimate end ileostomy. G-tube placement for hemiglossectomy and parotidectomy who presents with abd pain, unclear etiology; possible enteritis, possible ileus in setting of recent URI/aspiration
pna/pneumonitis, possible partial small bowel obstruction however now with good ROBF.
Ok for TFs and po intake as able
Will continue to follow for stoma output.
Time Spent
Total Time Spent with Patient (in minutes): 25
Subjective Data
-
Date of Service: January 25, 2024
Interval Events:
No acute events overnight. Denies Nausea/Vomiting, +bowel function. Tolerating diet.
Objective Data
-
Intake and Output
01/24/24 01/25/24 01/26/24
06:59 06:59 06:59
Intake Total 1200 / 1200 3430 / 3430
Output Total 2900 / 2900 900 / 900
Balance -1700 / -1700 2530 / 2530
Intake:
Oral fluids 480 / 480
IV fluids (Total) 1200 / 1200 2200 / 2200
IV piggybacks 750 / 750
Amount instilled into GI Tube ( 0 / 0
Total)
Gastrostomy 0 / 0
Output:
Liquid stool amount 1900 / 1900 200 / 200
Ileostomy 1900 / 1900 200 / 200
Gastrointestinal tube output ( 1000 / 1000 700 / 700
Total)
Gastrostomy 1000 / 1000 700 / 700
Other:
How many times incontinent 1
How many times incontinent 2
MODERATE amount urine
How many times incontinent 2
SATURATED amount urine
Vital Signs
Temp Pulse Resp BP Pulse Ox
98.1 F 76 20 152/76 93
01/25/24 07:30 01/25/24 07:30 01/25/24 07:30 01/25/24 07:30 01/25/24 07:30
Lab Results
01/25/24 07:07
01/25/24 07:07
Calcium 9.5 mg/dl (8.4-10.2) 01/25/24 07:07
Magnesium 1.7 mg/dl (1.6-2.3) 01/25/24 07:07
Total Bilirubin 0.4 mg/dl (0.2-1.3) 01/22/24 20:52
AST 19 U/L (14-36) 01/22/24 20:52
ALT 19 U/L (0-35) 01/22/24 20:52
Alkaline Phosphatase 97 U/L (38-126) 01/22/24 20:52
Total Protein 8.7 g/dl (6.3-8.2) H 01/22/24 20:52
Albumin 4.5 g/dl (3.5-5.0) 01/22/24 20:52
Physical Exam
-
GENERAL/NEURO: Awake, slow, some speech difficulty, no acute distress
CHEST: Mildly labored breathing on RA
ABDOMEN: Soft, Non-Tender, Non-Distended though somewhat limited due to body habitus. Ostomy is pink patent and productive of liquid dark green effluent. PEG tube in place.
[2024-01-25] MEDS: HEPARIN 5000 UNITS SC ×2 (09:29→20:57)
[2024-01-25] MEDS: NSS (PRESERVATIVE FREE) 10 ML IV (09:30)
[2024-01-25] MEDS: PROTONIX IV 40 MG IV (09:30)
[2024-01-25] MEDS: FLUSH (NSS) 1 FLUSH IV ×4 (09:32→21:07)
[2024-01-25] MEDS: STERILE WATER FOR INJECTION 10 ML IV (09:37)
[2024-01-25] MEDS: ROCEPHIN 1000 MG IV (09:38)
[2024-01-25] MEDS: VIBRAMYCIN 260 MG IV ×2 (09:38→21:56)
[2024-01-25] MEDS: LR IV (11:06)
--- NOTE | 2024-01-25 11:19 | CM ---
Patient seen bedside. CM sent clinicals through [facility] to [facility]. Per General Surgery note, okay to advance diet via G-tube and/or p.o. CM will continue to follow for discharge planning needs.
Plan; return to [facility] LT when stable.
[2024-01-25 12:21] LABS: Glucose - Point of Care 139 mg/dl (70-99)
--- NOTE | 2024-01-25 13:03 | PTOTSP ---
SPEECH THERAPY SWALLOW EVALUATION:
Patient exhibits clinical signs of oropharyngeal dysphagia, likely chronic related to subacute/chronic pontine CVA. Patient with significant predisposing dysphagia risk factors including prior CVA x2, COPD, Hemiglossectomy. Currently admitted with
aspiration pneumonia. Patient with extensive history of dysphagia following VSE 08/2023; was recommended for NPO at that time; later received PEG tube and eventually advanced to Regular texture diet/thin liquids by ST at [facility] per patient report.
Patient exhibiting overt signs of aspiration at bedside with conservative limited assessment of p.o. trials. Recommend instrumental assessment of swallowing function via Videofluoroscopic Swallowing Study to further assess patient's swallow
physiology at this time. Given patient's high risk for aspiration and related complications, recommend strict NPO until VFSS, with PEG tube for all nutrition/medication/hydration. Discussed with Dr. Valles; Awaiting MD approval to participate in VFSS
at this time given GI concerns. Will follow up for VFSS when able. Speech therapy to follow, provide further recommendations following VFSS procedure, and provide continued education regarding aspiration risks/precautions.
RECOMMEND:
1) Videofluoroscopic Swallowing Study
2) strict NPO until VFSS, with PEG tube for all nutrition/medication/hydration
3) Speech therapy to follow, provide further recommendations following VFSS procedure, and provide continued education regarding aspiration risks/precautions
[2024-01-25 14:43] VITALS: BMI 27.4
--- NOTE | 2024-01-25 14:57 | W.PN.UPDATE ---
Update Note
Progress Note Update
Spoke with WARP HAULER and C[facility] Or Lpn.
Patient will need video swallow prior to PO intake, keep nothing by mouth at this time.
Jevity recommended by ecommerce manager, will start at 20ml/hr with 30ml/hr flush via g-tube and increase as tolerated slowly until goal of 55ml.
Return g-tube to gravity drainage if nausea with diet advancement.
--- NOTE | 2024-01-25 15:55 | W.PN.HOSP.TC ---
Today's Communication/Plan
-
VSE in am
Resume TF and meds
Follow BMP
Assessment / Plan
Assessment / Plan
Assessment and plan:
A/P: Patient is a 58y F with complicated PMH who presents to ED complaining of abdominal pain with N/V.
SBO- partial vs ileus:
- CT scan done in the ED today shows SBO consistent with clinical presentation.
- Patient had an outpatient obstruction series done 01/21 that was interpreted as normal at the time.
- Improving - started back on TF by surgery
- Surgery input appreciated
- Follow for ostomy output, improvement in symptoms, etc.
- Supportive care including pain control, antiemetics, IVFs, etc.
Aspiration Pneumonitis / Pneumonia
- Patient with recent cold symptoms, cough, etc - actually preceding her abdominal complaints.
- CXR unremarkable (inpatient and outpatient) however CT scan suggests R base infiltrate.
-Continue Rocephin and doxycycline
- Patient thought that she was allergic to PCN 'as a baby' and denies any recent issues / events that led to new allergy listing since her last hospital stay here.
- Supportive care including nebs, O2, etc.
-Monitor vitals
Metabolic acidosis: Normal AG
seems to be on the sodium bicarb at retirement for possible chronic acidosis. Resume and follow.
Hypokalemia -replete
ASCVD
- Significant history of CVA, PAD, etc.
- Stable. No chest pain, no new focal deficits, no new LE wounds, etc.
- Hold PO medications acutely given SBO - resumed today.
- Follow for any new symptoms / complaints.
CKD III
- Improved to baseline .peaked 2.7 .Concerned about RHETT on CKD3.
- Follow for any changes.
Hypothyroidism
- Resume
Chronic Pain / Fibromyalgia
- Stable. ResumeD usual pain controlling meds once able to take PO.
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
Peripheral Neuropathy secondary to chemotherapy
Dysarthria s/p Partial Glossectomy
Diet-Controlled DM-II
- Stable. No acute issues.
- Follow for any changes.
DVT Prophylaxis: Heparin Subcut
Code Status: DNR
Anticipated Discharge: 24 - 48 hours
Subjective/Interval History
-
Date of Service: January 25, 2024
Some cough but not short of breath. No fever or chills.
No nausea vomiting further. Improved abdominal pain.
Objective Data
-
Labs:
Laboratory Results
01/25/24
07:07
WBC 10.6
Hgb 9.4 L
Hct 28.9 L
Plt Count 140
Sodium 137
Potassium 3.2 L
Chloride 112 H
Carbon Dioxide 13 L*
BUN 39 H
Creatinine 1.9 H
Glucose 106 H
Calcium 9.5
Vital Signs:
Vital Signs
Temp Pulse Resp BP Pulse Ox
98.1 F 76 20 152/76 93
01/25/24 07:30 01/25/24 07:30 01/25/24 07:30 01/25/24 07:30 01/25/24 07:30
I&O
01/24/24 01/25/24 01/26/24
06:59 06:59 06:59
Intake Total 1200 / 1200 3430 / 3430
Output Total 2900 / 2900 900 / 900
Balance -1700 / -1700 2530 / 2530
Review of Systems
-
Constitutional: Denies Fever
Cardiac: Denies Chest Pain
Neuro: Denies Dizzy
Physical Exam
-
General: No Apparent Distress
HEENT: Moist Mucous Membranes
Respiratory: Clear to Auscultation
Cardiac: Regular Rhythm and S1/S2
GI: Soft, Nontender and Normal Bowel Sounds
Neuro: AO x 3; Negative No Motor Deficits ( Right hemiparesis)
Data Reviewed
-
Labs: Labs Reviewed by me
[2024-01-25 17:16] LABS: Glucose - Point of Care 86 mg/dl (70-99)
[2024-01-25] MEDS: NORVASC 5 MG TUBE (17:26)
[2024-01-25] MEDS: KCL ELIXIR 40 MEQ TUBE (17:26)
[2024-01-25] MEDS: CLARITIN 10 MG TUBE (17:26)
[2024-01-25] MEDS: SODIUM BICARBONATE 650 MG TUBE (17:27)
[2024-01-25] MEDS: PLAVIX 75 MG TUBE (17:27)
[2024-01-25] MEDS: LOW STRENGTH ASPIRIN 81 MG TUBE (17:27)
[2024-01-25] MEDS: SYNTHROID 50 MCG TUBE (17:27)
[2024-01-25] MEDS: ROBITUSSIN 600 MG TUBE (20:57)
[2024-01-25] MEDS: EFFEXOR 100 MG TUBE (20:59)
[2024-01-25] MEDS: NEURONTIN 300 MG TUBE (21:14)
[2024-01-25] MEDS: BUSPAR 5 MG TUBE (21:14)
[2024-01-25] MEDS: LIPITOR 40 MG TUBE (21:14)
[2024-01-25] MEDS: MELATONIN 5 MG TUBE (21:14)
[2024-01-25 21:30] LABS: Glucose - Point of Care 99 mg/dl (70-99)
[2024-01-25 23:23] VITALS: BP 122/80
[2024-01-26] MEDS: SODIUM BICARBONATE 650 MG TUBE ×3 (00:28→15:14)
[2024-01-26 06:28] LABS: Glucose - Point of Care 122 mg/dl (70-99)
[2024-01-26] MEDS: DILAUDID 0.5 MG IV ×3 (06:39→19:42)
[2024-01-26 07:20] VITALS: BP 161/84
[2024-01-26 07:26] LABS: Glucose - Point of Care 117 mg/dl (70-99)
[2024-01-26 08:57] LABS: Hematocrit 28.9 % (37.0-47.0); Hemoglobin 9.8 g/dL (12.0-16.0); Mean Corp Hgb Conc. 33.9 g/dL (33.0-37.0); Mean Corpuscular Hgb 31.1 pg (27.0-31.0); Mean Corpuscular Volume 91.7 fL (81.0-99.0); Mean Platelet Volume 8.9 fL (7.4-10.4); Platelet Count 138 10^3/uL (130-400); Red Blood Cell Count 3.15 10^6/uL (4.20-5.40); Red Cell Dist. Width 13.2 % (11.5-14.5); White Blood Cell Count 9.1 10^3/uL (4.8-10.8)
--- NOTE | 2024-01-26 09:05 | W.PN.GS2 ---
Today's Communication / Plan
-
Continue TF diet
Assessment / Plan
-
Assessment: 58F with history of PAD/CVA/CAD, DM 2, CKD, rheumatoid arthritis, COPD, RACHEL, cervical cancer, peripheral neuropathy secondary to chemotherapy, radiation colitis, chronic pain on opioids, colon resection and colostomy secondary to
perforation status post 4 revisions with ultimate end ileostomy. G-tube placement for hemiglossectomy and parotidectomy who presents with abd pain, unclear etiology; possible enteritis, possible ileus in setting of recent URI/aspiration
pna/pneumonitis, possible partial small bowel obstruction however now with good ROBF.
AFVSS
Labs still pending
Tolerating tube feedings, await video swallow prior to PO intake
--No plans for surgical intervention
--Continue on TF with PO diet advancement as advised by FIELD NATURALIST
--Surgery to sign off, please call with questions concerns
Subjective Data
-
Date of Service: January 26, 2024
Patient seen and examined at bedside with Dr. Jones. Denies n/v. Tolerating TF diet. Does note dry mouth.
Objective Data
-
Intake and Output
01/25/24 01/26/24 01/27/24
06:59 06:59 06:59
Intake Total 3430 / 3430 610 / 610
Output Total 900 / 900 300 / 300
Balance 2530 / 2530 310 / 310
Intake:
Oral fluids 480 / 480 360 / 360
IV fluids (Total) 2200 / 2200
IV piggybacks 750 / 750 250 / 250
Output:
Liquid stool amount 200 / 200 300 / 300
Ileostomy 200 / 200 300 / 300
Gastrointestinal tube output ( 700 / 700
Total)
Gastrostomy 700 / 700
Other:
Number of approximated MODERATE 2
amounts of urine
How many times incontinent 2
MODERATE amount urine
How many times incontinent 2 2
SATURATED amount urine
Vital Signs
Temp Pulse Resp BP Pulse Ox
97.6 F 66 16 161/84 95
01/26/24 07:20 01/26/24 07:20 01/26/24 07:20 01/26/24 07:20 01/26/24 07:20
Calcium 9.5 mg/dl (8.4-10.2) 01/25/24 07:07
Magnesium 1.7 mg/dl (1.6-2.3) 01/25/24 07:07
Total Bilirubin 0.4 mg/dl (0.2-1.3) 01/22/24 20:52
AST 19 U/L (14-36) 01/22/24 20:52
ALT 19 U/L (0-35) 01/22/24 20:52
Alkaline Phosphatase 97 U/L (38-126) 01/22/24 20:52
Total Protein 8.7 g/dl (6.3-8.2) H 01/22/24 20:52
Albumin 4.5 g/dl (3.5-5.0) 01/22/24 20:52
Physical Exam
-
GENERAL/NEURO: Awake, slow, some speech difficulty, no acute distress
CHEST: Non-labored
ABDOMEN: Soft, Non-Tender, Non-Distended though somewhat limited due to body habitus. Ostomy is pink patent and productive of liquid/semi formed brown stool. PEG tube in place.
[2024-01-26] MEDS: CLARITIN 10 MG TUBE (09:56)
[2024-01-26] MEDS: BUSPAR 5 MG TUBE ×2 (09:56→21:06)
[2024-01-26] MEDS: HEPARIN 5000 UNITS SC ×2 (09:57→21:07)
[2024-01-26] MEDS: EFFEXOR 100 MG TUBE ×2 (09:57→21:07)
[2024-01-26] MEDS: ROCEPHIN 1000 MG IV (09:58)
[2024-01-26] MEDS: PROTONIX IV 40 MG IV (09:58)
[2024-01-26] MEDS: STERILE WATER FOR INJECTION 10 ML IV (09:58)
[2024-01-26] MEDS: LOW STRENGTH ASPIRIN 81 MG TUBE (09:58)
[2024-01-26] MEDS: NORVASC 5 MG TUBE (09:58)
[2024-01-26] MEDS: SYNTHROID 50 MCG TUBE (09:59)
[2024-01-26] MEDS: PLAVIX 75 MG TUBE (09:59)
[2024-01-26] MEDS: VITAMIN D3 (cholecalciferol) 50 MCG TUBE (09:59)
[2024-01-26] MEDS: NSS (PRESERVATIVE FREE) 10 ML IV (09:59)
[2024-01-26] MEDS: ROBITUSSIN 600 MG TUBE ×2 (09:59→21:07)
[2024-01-26] MEDS: VIBRAMYCIN 260 MG IV ×2 (10:03→21:21)
[2024-01-26] MEDS: NORCO 5/325 1 TABLET TUBE (10:42)
[2024-01-26 10:50] LABS: Blood Urea Nitrogen 31 mg/dl (7-17); Carbon Dioxide 18 mmol/L (22-30); Chloride 111 mmol/L (98-107); Estimated Creatinine Clearance 50 ml/min; Glucose 117 mg/dl (70-99); Potassium 3.4 mmol/L (3.5-5.1); Sodium 136 mmol/L (135-145); eGFR 43.61
[2024-01-26] MEDS: FLUSH (NSS) IV ×2 (11:14→11:15)
[2024-01-26 12:01] VITALS: BP 161/84
[2024-01-26 12:35] LABS: Glucose - Point of Care 125 mg/dl (70-99)
--- NOTE | 2024-01-26 16:11 | W.PN.HOSP.TC ---
Today's Communication/Plan
-
See plan above
Assessment / Plan
Assessment / Plan
Assessment and plan:
A/P: Patient is a 58y F with complicated PMH who presents to ED complaining of abdominal pain with N/V.
SBO- partial vs ileus:
- CT scan done in the ED today shows SBO consistent with clinical presentation.
- Patient had an outpatient obstruction series done 01/21 that was interpreted as normal at the time.
- Improving - started back on TF by surgery - tolerating
- Surgery input appreciated
- Follow for ostomy output, improvement in symptoms, etc.
- Supportive care including pain control, antiemetics, IVFs, etc.
Aspiration Pneumonitis / Pneumonia
- Patient with recent cold symptoms, cough, etc - actually preceding her abdominal complaints.
- CXR unremarkable (inpatient and outpatient) however CT scan suggests R base infiltrate.
-Continue Rocephin and doxycycline
- Patient thought that she was allergic to PCN 'as a baby' and denies any recent issues / events that led to new allergy listing since her last hospital stay here.
- Supportive care including nebs, O2, etc.
-Monitor vitals
- VSE
Metabolic acidosis: Normal AG
seems to be on the sodium bicarb at [facility] care for possible chronic acidosis. Resumed and follow.Improving
Hypokalemia -replete
ASCVD
- Significant history of CVA, PAD, etc.
- Stable. No chest pain, no new focal deficits, no new LE wounds, etc.
- Hold PO medications acutely given SBO - resumed today.
- Follow for any new symptoms / complaints.
CKD III
- Improved to baseline .peaked 2.7 .Concerned about RHETT on CKD3.
- Follow for any changes.
Hypothyroidism
- Resumed Synthroid
Chronic Pain / Fibromyalgia
- Stable. Resumed usual pain controlling meds once able to take PO.
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
Peripheral Neuropathy secondary to chemotherapy
Dysarthria s/p Partial Glossectomy
Diet-Controlled DM-II
- Stable. No acute issues.
- Follow for any changes.
DVT Prophylaxis: Heparin Subcut
Code Status: DNR
Anticipated Discharge: > 48 hours
Subjective/Interval History
-
Date of Service: January 26, 2024
Currently tolerating her tube feeds at 55 mls per hour.
No nausea. She feels thirsty. She wants to have ice chips.
Denies any shortness of breath. No fever.
Objective Data
-
Labs:
Laboratory Results
01/26/24
08:21
WBC 9.1
Hgb 9.8 L
Hct 28.9 L
Plt Count 138
Sodium 136
Potassium 3.4 L
Chloride 111 H
Carbon Dioxide 18 L
BUN 31 H
Creatinine 1.4 H
Glucose 117 H
Calcium 10.0
Vital Signs:
Vital Signs
Temp Pulse Resp BP Pulse Ox
97.1 F 68 14 161/84 95
01/26/24 12:01 01/26/24 12:01 01/26/24 12:01 01/26/24 12:01 01/26/24 12:01
I&O
01/25/24 01/26/24 01/27/24
06:59 06:59 06:59
Intake Total 3430 / 3430 610 / 610
Output Total 900 / 900 300 / 300
Balance 2530 / 2530 310 / 310
Review of Systems
-
EENT: Denies Sore Throat
Respiratory: Denies Cough
Cardiac: Denies Chest Pain
Neuro: Denies Dizzy
Physical Exam
-
General: No Apparent Distress
HEENT: Moist Mucous Membranes
Respiratory: Clear to Auscultation
Cardiac: Regular Rhythm and S1/S2
GI: Soft, Nontender, Peg Tube and Ostomy
Neuro: AO x 3; Negative No Motor Deficits (right hemiparesis as prior)
Psych: Calm
Data Reviewed
-
Labs: Labs Reviewed by me
[2024-01-26] MEDS: KCL ELIXIR 40 MEQ TUBE (16:26)
[2024-01-26 17:49] VITALS: BP 158/87
[2024-01-26 17:49] LABS: Glucose - Point of Care 127 mg/dl (70-99)
[2024-01-26] MEDS: FLUSH (NSS) 1 FLUSH IV (19:43)
[2024-01-26] MEDS: LIPITOR 40 MG TUBE (21:08)
[2024-01-26] MEDS: NEURONTIN 300 MG TUBE (21:09)
[2024-01-26] MEDS: MELATONIN 5 MG TUBE (21:09)
[2024-01-26] MEDS: FLUSH (NSS) 2 FLUSH IV (21:22)
[2024-01-26 23:09] VITALS: BP 165/84
[2024-01-27] LABS: Glucose - Point of Care 131 mg/dl (70-99)
[2024-01-27] MEDS: SODIUM BICARBONATE 650 MG TUBE ×4 (01:05→23:07)
[2024-01-27 06:00] LABS: Glucose - Point of Care 143 mg/dl (70-99)
[2024-01-27 07:02] VITALS: BP 157/78
[2024-01-27 07:35] LABS: Hematocrit 28.6 % (37.0-47.0); Hemoglobin 9.8 g/dL (12.0-16.0); Mean Corp Hgb Conc. 34.3 g/dL (33.0-37.0); Mean Corpuscular Volume 87.5 fL (81.0-99.0); Mean Platelet Volume 8.7 fL (7.4-10.4); Platelet Count 142 10^3/uL (130-400); Red Blood Cell Count 3.27 10^6/uL (4.20-5.40); Red Cell Dist. Width 12.9 % (11.5-14.5); White Blood Cell Count 7.1 10^3/uL (4.8-10.8)
[2024-01-27 07:50] LABS: Blood Urea Nitrogen 32 mg/dl (7-17); Calcium 9.9 mg/dl (8.4-10.2); Carbon Dioxide 19 mmol/L (22-30); Chloride 109 mmol/L (98-107); Estimated Creatinine Clearance 58 ml/min; Glucose 120 mg/dl (70-99); Potassium 3.7 mmol/L (3.5-5.1); Sodium 137 mmol/L (135-145); eGFR 52.47
[2024-01-27] MEDS: EFFEXOR 100 MG TUBE ×2 (08:47→21:46)
[2024-01-27] MEDS: BUSPAR 5 MG TUBE ×2 (08:47→21:46)
[2024-01-27] MEDS: CLARITIN 10 MG TUBE (08:47)
[2024-01-27] MEDS: LOW STRENGTH ASPIRIN 81 MG TUBE (08:48)
[2024-01-27] MEDS: PROTONIX IV 40 MG IV (08:48)
[2024-01-27] MEDS: HEPARIN 5000 UNITS SC ×2 (08:48→21:46)
[2024-01-27] MEDS: NSS (PRESERVATIVE FREE) 10 ML IV (08:48)
[2024-01-27] MEDS: NORVASC 5 MG TUBE (08:48)
[2024-01-27] MEDS: VITAMIN D3 (cholecalciferol) 50 MCG TUBE (08:49)
[2024-01-27] MEDS: PLAVIX 75 MG TUBE (08:49)
[2024-01-27] MEDS: ROBITUSSIN 600 MG TUBE ×2 (08:49→21:52)
[2024-01-27] MEDS: NORCO 5/325 1 TABLET TUBE (08:49)
[2024-01-27] MEDS: SYNTHROID 50 MCG TUBE (08:49)
[2024-01-27] MEDS: ROCEPHIN 1000 MG IV (09:35)
[2024-01-27] MEDS: VIBRAMYCIN 260 MG IV ×2 (09:36→21:52)
[2024-01-27] MEDS: STERILE WATER FOR INJECTION 10 ML IV (09:36)
--- NOTE | 2024-01-27 10:37 | W.PN.HOSP.TC ---
Today's Communication/Plan
-
VSE in am
DC planning
Assessment / Plan
Assessment / Plan
Assessment and plan:
A/P: Patient is a 58y F with complicated PMH who presents to ED complaining of abdominal pain with N/V.
SBO- partial vs ileus:
- CT scan done in the ED today shows SBO consistent with clinical presentation.
- Patient had an outpatient obstruction series done 01/21 that was interpreted as normal at the time.
- Improving - started back on TF by surgery - tolerating at goal rate
- Surgery following
Aspiration Pneumonitis / Pneumonia
- Patient with recent cold symptoms, cough, etc - actually preceding her abdominal complaints.
- CXR unremarkable (inpatient and outpatient) however CT scan suggests R base infiltrate.
-Continue Rocephin and doxycycline
- Patient thought that she was allergic to PCN 'as a baby' and denies any recent issues / events that led to new allergy listing since her last hospital stay here.
- Supportive care including nebs, O2, etc.
-Monitor vitals
- VSE
Metabolic acidosis: Normal AG
[facility]osis. Resumed and follow.Improving
ASCVD
- Significant history of CVA, PAD, etc.
- Stable. No chest pain, no new focal deficits, no new LE wounds, etc.
- Hold PO medications acutely given SBO - resumed today.
- Follow for any new symptoms / complaints.
CKD III
- Improved to baseline .peaked 2.7 .Concerned about RHETT on CKD3.
- Follow for any changes.
Hypothyroidism
- Resumed Synthroid
Chronic Pain / Fibromyalgia
- Stable. Resumed usual pain controlling meds once able to take PO.
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
Peripheral Neuropathy secondary to chemotherapy
Dysarthria s/p Partial Glossectomy
Diet-Controlled DM-II
- Stable. No acute issues.
- Follow for any changes.
DVT Prophylaxis: Heparin Subcut
Code Status: DNR
Anticipated Discharge: Within 24 hours
Subjective/Interval History
-
Date of Service: January 27, 2024
No overnight events
Objective Data
-
Labs:
Laboratory Results
01/27/24
06:49
WBC 7.1
Hgb 9.8 L
Hct 28.6 L
Plt Count 142
Sodium 137
Potassium 3.7
Chloride 109 H
Carbon Dioxide 19 L
BUN 32 H
Creatinine 1.2 H
Glucose 120 H
Calcium 9.9
Vital Signs:
Vital Signs
Temp Pulse Resp BP Pulse Ox
98.5 F 66 24 157/78 94
01/27/24 07:02 01/27/24 07:02 01/27/24 07:02 01/27/24 07:02 01/27/24 07:02
I&O
01/26/24 01/27/24 01/28/24
06:59 06:59 06:59
Intake Total 610 / 610 2250 / 2250
Output Total 300 / 300
Balance 310 / 310 2250 / 2250
Review of Systems
-
Constitutional: Denies Fever
Respiratory: Denies Trouble Breathing
Cardiac: Denies Chest Pain
Abdomen/GI: Reports Other (tolerating TF at goal); Denies Nausea or Vomiting
Neuro: Denies Dizzy
Physical Exam
-
General: No Apparent Distress
HEENT: Moist Mucous Membranes
Respiratory: Clear to Auscultation
Cardiac: Regular Rhythm and S1/S2
GI: Soft and Nontender
Neuro: AO x 3; Negative No Motor Deficits (rt hemiparesis)
[2024-01-27] MEDS: DILAUDID 0.5 MG IV ×2 (10:48→21:48)
[2024-01-27 12:01] LABS: Glucose - Point of Care 148 mg/dl (70-99)
[2024-01-27] MEDS: NORCO 5/325 2 TABLET TUBE (15:08)
[2024-01-27 15:12] VITALS: BP 139/76
[2024-01-27 18:27] LABS: Glucose - Point of Care 137 mg/dl (70-99)
[2024-01-27] MEDS: DUONEB 3 ML INH (19:57)
[2024-01-27] MEDS: NEURONTIN 300 MG TUBE (21:48)
[2024-01-27] MEDS: MELATONIN 5 MG TUBE (21:48)
[2024-01-27] MEDS: LIPITOR 40 MG TUBE (21:48)
[2024-01-27 23:28] VITALS: BP 153/81
[2024-01-28 00:40] LABS: Glucose - Point of Care 113 mg/dl (70-99)
[2024-01-28 06:08] LABS: Glucose - Point of Care 119 mg/dl (70-99)
[2024-01-28 07:47] LABS: Blood Urea Nitrogen 35 mg/dl (7-17); Calcium 9.7 mg/dl (8.4-10.2); Carbon Dioxide 18 mmol/L (22-30); Chloride 106 mmol/L (98-107); Estimated Creatinine Clearance 63 ml/min; Glucose 118 mg/dl (70-99); Potassium 3.9 mmol/L (3.5-5.1); Sodium 136 mmol/L (135-145); eGFR 58.24
[2024-01-28 07:53] VITALS: BP 155/82
[2024-01-28] MEDS: BUSPAR 5 MG TUBE ×2 (08:24→20:30)
[2024-01-28] MEDS: HEPARIN 5000 UNITS SC ×2 (08:24→20:30)
[2024-01-28] MEDS: EFFEXOR 100 MG TUBE ×2 (08:24→20:30)
[2024-01-28] MEDS: CLARITIN 10 MG TUBE (08:24)
[2024-01-28] MEDS: PROTONIX IV 40 MG IV (08:25)
[2024-01-28] MEDS: PLAVIX 75 MG TUBE (08:25)
[2024-01-28] MEDS: NSS (PRESERVATIVE FREE) 10 ML IV (08:25)
[2024-01-28] MEDS: NORVASC 5 MG TUBE (08:25)
[2024-01-28] MEDS: ROBITUSSIN 600 MG TUBE ×2 (08:25→20:31)
[2024-01-28] MEDS: LOW STRENGTH ASPIRIN 81 MG TUBE (08:25)
[2024-01-28] MEDS: SYNTHROID 50 MCG TUBE (08:26)
[2024-01-28] MEDS: VITAMIN D3 (cholecalciferol) 50 MCG TUBE (08:26)
[2024-01-28] MEDS: SODIUM BICARBONATE 650 MG TUBE ×3 (08:26→23:09)
[2024-01-28] MEDS: NORCO 5/325 2 TABLET TUBE ×2 (08:26→17:33)
[2024-01-28] MEDS: STERILE WATER FOR INJECTION 10 ML IV (09:16)
[2024-01-28] MEDS: VIBRAMYCIN 260 MG IV ×2 (09:17→22:34)
[2024-01-28] MEDS: ROCEPHIN 1000 MG IV (09:17)
[2024-01-28 11:58] LABS: Glucose - Point of Care 115 mg/dl (70-99)
[2024-01-28] MEDS: DILAUDID 0.5 MG IV ×2 (12:58→20:31)
--- NOTE | 2024-01-28 14:04 | PTOTSP ---
Video Swallow Examination
Variable swallow delay that significantly improves with use of chin tuck. Improved airway protection with less instances of laryngeal penetration/aspiration when utilizing head turn right along with chin tuck.
Aspiration events inconsistently generated a responsive cough.
Recommend:
1. Regular solids, Mildly Thick Liquids
2. Head turn right and chin tuck with all swallows.
3. Single sips/no straws. Small bites/chew thoroughly
4. Meds whole in applesauce.
5. Aspiration precautions.
6. Allow sips of water per [facility] protocol.
7. Follow up ST at next level of care.
--- NOTE | 2024-01-28 14:13 | W.PN.HOSP.TC ---
Today's Communication/Plan
-
Start on oral diet
DC Planning
Assessment / Plan
Assessment / Plan
Assessment and plan:
A/P: Patient is a 58y F with complicated PMH who presents to ED complaining of abdominal pain with N/V.
SBO- partial vs ileus:
- CT scan done in the ED showed SBO consistent with clinical presentation.
- Patient had an outpatient obstruction series done 01/21 that was interpreted as normal at the time.
- was tolerating at goal rate; passed VSE - getting on oral diet today
- Surgery following
Aspiration Pneumonitis / Pneumonia
- Patient with recent cold symptoms, cough, etc - actually preceding her abdominal complaints.
- CXR unremarkable (inpatient and outpatient) however CT scan suggests R base infiltrate.
-Continue Rocephin and doxycycline -stop after tomorrow dose
- Patient thought that she was allergic to PCN 'as a baby' and denies any recent issues / events that led to new allergy listing since her last hospital stay here.
- Supportive care including nebs, O2, etc.
-Monitor vitals
- VSE
Metabolic acidosis: Normal AG
[facility] for possible chronic acidosis. Resumed and follow.Improving
ASCVD
- Significant history of CVA, PAD, etc.
- Stable. No chest pain, no new focal deficits, no new LE wounds, etc.
- Hold PO medications acutely given SBO - resumed today.
- Follow for any new symptoms / complaints.
CKD III
- Improved to baseline .peaked 2.7 .Concerned about RHETT on CKD3.
- Follow for any changes.
Hypothyroidism
- Resumed Synthroid
Chronic Pain / Fibromyalgia
- Stable. Resumed usual pain controlling meds once able to take PO.
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
Peripheral Neuropathy secondary to chemotherapy
Dysarthria s/p Partial Glossectomy
Diet-Controlled DM-II
- Stable. No acute issues.
- Follow for any changes.
DVT Prophylaxis: Heparin Subcut
Code Status: DNR
If she tolerates oral diet dc back to NH in am
Anticipated Discharge: Within 24 hours
Subjective/Interval History
-
Date of Service: January 28, 2024
Patient passed her swallow study. Eating her first oral meal . So far feeling okay. Denies any nausea vomiting and abdominal pain. Off of tube feeds.
Objective Data
-
Labs:
Laboratory Results
01/28/24
06:26
Sodium 136
Potassium 3.9
Chloride 106
Carbon Dioxide 18 L
BUN 35 H
Creatinine 1.1 H
Glucose 118 H
Calcium 9.7
Vital Signs:
Vital Signs
Temp Pulse Resp BP Pulse Ox
97.6 F 69 18 155/82 94
01/28/24 07:53 01/28/24 07:53 01/28/24 07:53 01/28/24 07:53 01/28/24 08:40
I&O
01/27/24 01/28/24 01/29/24
06:59 06:59 06:59
Intake Total 2250 / 2250 1530 / 1530 1020 / 1020
Output Total 575 / 575
Balance 2250 / 2250 955 / 955 1020 / 1020
Review of Systems
-
Constitutional: Denies Fever
Respiratory: Denies Trouble Breathing
Cardiac: Denies Chest Pain
Neuro: Denies Dizzy or Headache
Physical Exam
-
General: Comfortable
HEENT: Moist Mucous Membranes
Respiratory: Clear to Auscultation
Cardiac: Regular Rhythm
GI: Soft and Nontender
Neuro: AO x 3
Psych: Calm
Data Reviewed
-
Medical Tests (Nuc Med, Echo etc): Image personally visualized and interpreted
--- NOTE | 2024-01-28 15:08 | CM ---
Addendum entered by April Del Cid 01/28/24 15:11:
Patient from [facility], not [place].
Original Note:
Patient seen bedside. Per Hospitalist note, if patient tolerates oral diet, discharge tomorrow back to [facility]. CM will continue to follow for discharge planing needs, will update [facility] Liaison on discharge status.
Plan; return to [facility]
[2024-01-28 15:34] VITALS: BP 122/70
[2024-01-28 16:35] LABS: Glucose - Point of Care 134 mg/dl (70-99)
[2024-01-28 22:04] LABS: Glucose - Point of Care 150 mg/dl (70-99)
[2024-01-28] MEDS: NEURONTIN 300 MG TUBE (22:33)
[2024-01-28] MEDS: LIPITOR 40 MG TUBE (22:33)
[2024-01-28] MEDS: MELATONIN 5 MG TUBE (22:33)
[2024-01-28 23:00] VITALS: BP 117/60
[2024-01-29] MEDS: DILAUDID 0.5 MG IV ×3 (02:30→15:16)
[2024-01-29 06:57] LABS: Glucose - Point of Care 110 mg/dl (70-99)
[2024-01-29 07:42] VITALS: BP 142/77
[2024-01-29] MEDS: EFFEXOR 100 MG TUBE (08:40)
[2024-01-29] MEDS: ROBITUSSIN 600 MG TUBE (08:40)
[2024-01-29] MEDS: CLARITIN 10 MG TUBE (08:41)
[2024-01-29] MEDS: BUSPAR 5 MG TUBE (08:41)
[2024-01-29] MEDS: SODIUM BICARBONATE 650 MG TUBE ×2 (08:41→15:15)
[2024-01-29] MEDS: PLAVIX 75 MG TUBE (08:41)
[2024-01-29] MEDS: LOW STRENGTH ASPIRIN 81 MG TUBE (08:41)
[2024-01-29] MEDS: SYNTHROID 50 MCG TUBE (08:41)
[2024-01-29] MEDS: NORVASC 5 MG TUBE (08:42)
[2024-01-29] MEDS: PROTONIX IV 40 MG IV (08:48)
[2024-01-29] MEDS: NSS (PRESERVATIVE FREE) 10 ML IV (08:48)
[2024-01-29] MEDS: HEPARIN 5000 UNITS SC (08:50)
[2024-01-29] MEDS: TYLENOL/FEVERALL 650 MG RECTAL (08:51)
[2024-01-29] MEDS: VITAMIN D3 (cholecalciferol) 50 MCG TUBE (08:52)
[2024-01-29] MEDS: ROCEPHIN 1000 MG IV (09:37)
[2024-01-29] MEDS: STERILE WATER FOR INJECTION 10 ML IV (09:38)
[2024-01-29] MEDS: VIBRAMYCIN 260 MG IV (09:39)
[2024-01-29 11:27] LABS: Glucose - Point of Care 118 mg/dl (70-99)
--- NOTE | 2024-01-29 11:43 | CM ---
Patient seen bedside. Per Hospitalist, plan for discharge today. CM spoke with Zoey from [facility], able to accept patient for return. 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 Message left for patients spouse to review IMM. CM will
continue to follow for discharge planning needs.
Plan; return to [facility], awaiting transportation time.
Report
[phone]
FAx
[phone]
--- NOTE | 2024-01-29 13:17 | W.PN.HOSP.TC ---
Today's Communication/Plan
-
DC
Assessment / Plan
Assessment / Plan
Assessment and plan:
A/P: Patient is a 58y F with complicated PMH who presents to ED complaining of abdominal pain with N/V.
SBO- partial vs ileus:
- CT scan done in the ED showed SBO consistent with clinical presentation.
- Patient had an outpatient obstruction series done 01/21 that was interpreted as normal at the time.
- was tolerating at goal rate; passed VSE - currently on oral diet
- Surgery signed off
Aspiration Pneumonitis / Pneumonia
- Patient with recent cold symptoms, cough, etc - actually preceding her abdominal complaints.
- CXR unremarkable (inpatient and outpatient) however CT scan suggests R base infiltrate.
-Continue Rocephin and doxycycline -- finished abx today
Metabolic acidosis: Normal AG
seems to be on the sodium bicarb at [facility] for possible chronic acidosis. Resumed and follow.Improving
ASCVD
- Significant history of CVA, PAD, etc.
- Stable.
- cw home meds
CKD III
- Improved to baseline .peaked 2.7 .Concerned about RHETT on CKD3.
- Follow for any changes.
Hypothyroidism
- Resumed Synthroid
Chronic Pain / Fibromyalgia
- Stable. Resumed usual pain controlling meds
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
Peripheral Neuropathy secondary to chemotherapy
Dysarthria s/p Partial Glossectomy
Diet-Controlled DM-II
- Stable. No acute issues.
- Follow for any changes.
DVT Prophylaxis: Heparin Subcut
Code Status: DNR
If he tolerates lunch will dc her back to rehab
DW RN/CM
DW husbandMore than 30 minutes spent in discharge including
Final examination of the patient
Summarizing hospital stay
Instructions for continuing care to all relevant caregivers
Preparation of discharge records, prescriptions, and referral forms
Total time spent (in minutes): 35
Anticipated Discharge: Today
Subjective/Interval History
-
Date of Service: January 29, 2024
She did feel great with the pancreas. She felt nauseous. Did not was okay.
She is going to order lunch and see how she does.
Having output through ostomy.
No fever or chills.
No shortness of breath.
Objective Data
-
Vital Signs:
Vital Signs
Temp Pulse Resp BP Pulse Ox
98.2 F 66 18 142/77 97
01/29/24 07:42 01/29/24 07:42 01/29/24 07:42 01/29/24 07:42 01/29/24 08:40
I&O
01/28/24 01/29/24 01/30/24
06:59 06:59 06:59
Intake Total 1530 / 1530 3255 / 3255
Output Total 575 / 575 1275 / 1275 200 / 200
Balance 955 / 955 1979 / 1979 -200 / -200
Review of Systems
-
EENT: Denies Sore Throat
Respiratory: Denies Cough
Neuro: Denies Dizzy
Physical Exam
-
General: No Apparent Distress
HEENT: Moist Mucous Membranes
Respiratory: Clear to Auscultation (anteriorly;on RA)
Cardiac: Regular Rhythm and S1/S2
GI: Soft, Nontender and Ostomy
Neuro: AO x 3
--- NOTE | 2024-01-29 13:25 | W.DS.TRANS ---
DC Summary - Bacteriologist Medical
-
Discharge Instructions:
Discharge Diagnosis/Procedures Aspiration pneumonitis/pneumonia
Possible ileus versus partial small bowel
obstruction
Diet Regular
Additional Diets mildly thick liquids
Activity As tolerated
Driving Restrictions As prior to admission
Other Services PT,OT
Instructions:
Stand-Alone Forms:
Changes to Home Medications: No
Discharge Medications:
DC Medications w/original date entered in brotips
clopidogrel 75 mg tablet (Plavix) 75 mg PO DAILY CAD 06/25/23
acetaminophen 325 mg tablet 650 mg PO Q4H PRN mild pain/temp>100F 01/22/24
amlodipine 5 mg tablet 5 mg PO DAILY 01/22/24
ammonium lactate 12 % lotion 1 applic topical BID 01/22/24
aspirin 81 mg chewable tablet 81 mg PO DAILY 01/22/24
atorvastatin 40 mg tablet 40 mg PO HS 01/22/24
bisacodyl 10 mg rectal suppository (Dulcolax (bisacodyl)) 10 mg MI DAILY PRN if mom is ineffective after 24hrs 01/22/24
buspirone 5 mg tablet 5 mg PO BID 01/22/24
cholecalciferol (vitamin D3) 25 mcg (1,000 unit) tablet (Vitamin D3) 50 mcg PO DAILY 01/22/24
gabapentin 100 mg capsule 100 mg PO Q6H PRN mild-mod pain 01/22/24
gabapentin 300 mg capsule 300 mg PO HS 01/22/24
guaifenesin 600 mg tablet, extended release 12 hr 600 mg PO BID 01/22/24
hydrocodone 5 mg-acetaminophen 325 mg tablet 1 tab PO Q6H PRN moderate to severe pain 01/22/24
levothyroxine 50 mcg tablet 50 mcg PO DAILY 01/22/24
loperamide 2 mg capsule (Imodium A-D) 2 mg PO Q6H PRN diarrhea 01/22/24
loratadine 10 mg tablet 10 mg PO DAILY 01/22/24
magnesium hydroxide 400 mg/5 mL oral suspension (Milk of Magnesia) 30 ml PO DAILY PRN if no bm x 3 days 01/22/24
melatonin 5 mg tablet 5 mg PO HS 01/22/24
pantoprazole 40 mg granules delayed-release for susp in packet 20 mg PO DAILY 01/22/24
sodium bicarbonate 650 mg tablet 650 mg PO Q8H 01/22/24
sodium phosphates 19 gram-7 gram/118 mL enema (Fleet Enema) 118 ml MI DAILY PRN if dulcolax is ineffective after 24hrs 01/22/24
venlafaxine 100 mg tablet 100 mg PO BID 01/22/24
Home Medication Changes
Pending Results: No
[2024-01-29 15:28] VITALS: BP 140/89
== END 2024-01-29 16:10 | DRG 388 ==
LOC: 4 WEST ACU 03:17
PROVIDERS: Clinical Nurse Specialist Family Health; Internal Medicine; ADMITTING PHYSICIAN Hospitalist; ATTENDING PHYSICIAN Internal Medicine; CONSULT PHYSICIAN Surgery; EMERGENCY PHYSICIAN Emergency Medicine; FAMILY PHYSICIAN Internal Medicine
DX: K56.609 Unspecified intestinal obstruction, unspecified as to partial versus complete obstruction (principal); J69.0 Pneumonitis due to inhalation of food and vomit; E87.20 Acidosis, unspecified; I69.351 Hemiplegia and hemiparesis following cerebral infarction affecting right dominant side; F11.20 Opioid dependence, uncomplicated; F17.210 Nicotine dependence, cigarettes, uncomplicated; E83.52 Hypercalcemia; N18.32 Chronic kidney disease, stage 3b; E11.22 Type 2 diabetes mellitus with diabetic chronic kidney disease; E11.65 Type 2 diabetes mellitus with hyperglycemia; I25.10 Atherosclerotic heart disease of native coronary artery without angina pectoris; E03.9 Hypothyroidism, unspecified; M79.7 Fibromyalgia; G89.4 Chronic pain syndrome; G62.0 Drug-induced polyneuropathy; T45.1X5A Adverse effect of antineoplastic and immunosuppressive drugs, initial encounter; Z66 Do not resuscitate; C53.9 Malignant neoplasm of cervix uteri, unspecified; E87.6 Hypokalemia
CPT/HCPCS: 71046; 74176; 74230; 80048; 80053; 82962; 83036; 83690; 83735; 84484; 85025; 85027; 87070; 87502; 92526; 92610; 92611; 94640; 96361; 96374; 96375; 99285; 99406

== ENCOUNTER 2024-01-30 21:49 | Inpatient (IN) | payer MEDICARE, SELFPAY ==
[2024-01-30] VITALS (7 sets, daily range): BP systolic 135–150; BP diastolic 74–84
[2024-01-30] MEDS: ZOFRAN 4 MG IV ×2 (18:47→22:01)
[2024-01-30] MEDS: OMNIPAQUE 50 ML PO (18:47)
[2024-01-30] MEDS: DILAUDID 1 MG IV (18:48)
--- NOTE | 2024-01-30 18:48 | ED.GENMED ---
History of Present Illness
General
Chief Complaint: Abdominal Pain
Source: patient
Exam Limitations: none
Time Seen by Provider: 01/30/24 17:53
Travel History
Have you had any contact with someone who has COVID-19?: No
Do you have any symptoms of coronavirus? Fever > 100 degrees, chills, cough, shortness of breath, sore throat, loss of taste or smell, muscle aches, or headache?: No
History of Present Illness
History of Present Illness:
Patient is a 58-year-old female with a history of cervical cancer, with PEG tube and ileostomy, who presents emergency department with centralized abdominal pain, decreased ostomy output, vomiting concern for obstruction. Symptoms have been ongoing
but worsening over the past few weeks she states. She was discharged yesterday with a possible partial small bowel obstruction versus ileus. Denies any acute change in symptoms, just having persistent symptoms
Past History
Past History
ED Past Medical History: CAD, Cancer (Cervical cancer), CVA (X 2), Fibromyalgia, HTN, NIDDM, ME, Hypothyroidism, Psychiatric (Depression, PTSD) and Other (Rheumatoid arthritis, neuropathy, Colitis from radiation, Cellulitis, Sleep apnea uses CPAP,
Renal calculus, Parotid mass, LVH, GI bleeding, Anemia, PTSD); Negative Asthma or Hypercholesterolemia
ED Past Surgical History: Appendectomy, Bowel resection, Cardiac (Cardiac stent), Gynecological (Cervical Cancer with radiaion and Chemo, Hysterectomy), Orthopedic (Left ankle, left knee surgery X 2, Left wrist surgery, Right knee surgery, ),
Tonsilectomy (adnoids) and Other (Colostomy changed to Ileostomy, Ear tubes, Right parotidectomy, Left great toe and second Toe amputation)
Social History
Tobacco: Smoker (1ppd)
Alcohol: None
Drug: None
Personal:
Living: half-way
Employment: Not employed
Family History
Family History: Early CAD (in patient's father)
Phy Exam
Physical Exam
Physical Exam:
GENERAL APPEARANCE: uncomfortable appearing, no active vomiting or retching
EYES lids/conjunctiva normal
EARS/NOSE/THROAT Mucous membranes moist, uvula midline without oral pharyngeal erythema, exudate or swelling
HEAD/NECK normocephalic atraumatic, neck is supple.
RESPIRATORY respiratory effort normal, speaks in full sentences, no accessory muscle use. Lungs clear to auscultation without rhonchi, wheezes, rales
CARDIAC Regular rate and rhythm, no edema.
ABDOMINAL Abdomen is soft mild diffuse tenderness. Ostomy with stool and pink stoma. PEG tube site clean dry and intact.
MUSCLES/EXTREMITIES No abnormal range of motion, no swelling.
SKIN Warm, pink and dry. No rashes
NEUROLOGICAL Speech is clear and appropriate. Normal level of consciousness. 5/5 strength in all extremities.
PSYCH Normal mood and affect. Judgement/competence is appropriate
Course
Orders/Labs/Results
Orders:
Orders
01/30/24 18:38
Urinalysis Reflex To Culture Urgent
Date Specimen was Collected: 01/30/24
Time Specimen was Collected: 18:43
HYDROmorphone [Dilaudid] 1 mg IV NOW STA
Iohexol [Omnipaque] See Protocol PO NOW STA
Ondansetron Injectable [Zofran] 4 mg IV NOW STA
01/30/24 18:45
0.9% Sodium Chloride 1000 ml [Nss] 1,000 ml IV BOLUS
01/30/24 18:46
Comprehensive Metabolic Panel Urgent
Lipase Urgent
01/30/24 18:47
Complete Blood Count/With Diff Urgent
Lactic Acid Urgent
Abnormal Lab Results
01/30/24 01/30/24
18:46 18:47
WBC 11.6 H 10^3/uL
(4.8-10.8)
RBC 3.37 L 10^6/uL
(4.20-5.40)
Hgb 10.3 L g/dL
(12.0-16.0)
Hct 30.8 L %
(37.0-47.0)
Abs Immat Gran (auto) 0.3 H 10^3/uL
(0-0.05)
Absolute Neuts (auto) 8.7 H 10^3/uL
(1.4-6.5)
Absolute Monos (auto) 0.7 H 10^3/uL
(0.1-0.6)
Immature Gran % 2.2 H %
(0-0.5)
Lymphocytes % 12.3 L %
(20.5-51.1)
Carbon Dioxide 21 L mmol/L
(22-30)
BUN 46 H mg/dl
(7-17)
Creatinine 1.4 H mg/dL
(0.6-1.0)
Lipase 2296 H* U/L
(23-300)
01/30/24 18:47
01/30/24 18:46
Vital Signs
Initial and Last Documented VS:
Initial Vital Signs
Pulse Resp BP
75 22 140/84
01/30/24 17:37 01/30/24 17:37 01/30/24 17:37
Last Documented Vital Signs
Temp Pulse Resp BP Pulse Ox
98.9 F 71 16 143/76 99
01/30/24 17:38 01/30/24 19:00 01/30/24 19:00 01/30/24 19:00 01/30/24 17:38
*Critical Care Note
Total Time (30-74mins, 75-104mins- exclusive of procedures): Not Applicable
ED Attending Note
ED Attending Note
ED Attending Note:
patient has known ileus vs partial SBO. persistent symptoms since discharge yesterday. She was evaluated by surgery who signed off. Labs today showing pancreatitis. Unclear etiology. Pain is well controlled at this time. lactate normal. metabolic
acidosis improving. Will admit for pain control, IVF, continued observation.
-
Portions of this chart may have been created with voice recognition software.� Occasional wrong word or��sound alike� substitutions may have occurred due to the inherent limitations of voice recognition software.
Discharge Plan
Departure
Prescriptions:
No Action
clopidogrel [Plavix] 75 mg Tablet
75 mg PO DAILY
Patient Comments:
08/25/23 may have stop for recent dental process
atorvastatin 40 mg tablet
40 mg PO HS
buspirone 5 mg Tablet
5 mg PO BID
acetaminophen 325 mg Tablet
650 mg PO Q4H PRN (Reason: mild pain/temp>100F)
ammonium lactate 12 % Lotion
1 applic TOPICAL BID
Patient Comments:
01/22/2024: apply to arms/legs/back
loperamide [Imodium A-D] 2 mg Capsule
2 mg PO Q6H PRN (Reason: diarrhea)
hydrocodone-acetaminophen 5-325 mg Tablet
1 tab PO Q6H PRN (Reason: moderate to severe pain)
amlodipine 5 mg tablet
5 mg PO DAILY
venlafaxine 100 mg tablet
100 mg PO BID
magnesium hydroxide [Milk of Magnesia] 400 mg/5 mL Suspension
30 ml PO DAILY PRN (Reason: if no bm x 3 days)
sodium bicarbonate 650 mg Tablet
650 mg PO Q8H
levothyroxine 50 mcg Tablet
50 mcg PO DAILY
bisacodyl [Dulcolax (bisacodyl)] 10 mg Suppository
10 mg NE DAILY PRN (Reason: if mom is ineffective after 24hrs)
Fleet Enema 19-7 gram/118 mL Enema
118 ml NE DAILY PRN (Reason: if dulcolax is ineffective after 24hrs)
gabapentin 300 mg capsule
300 mg PO HS
aspirin 81 mg Tablet,Chewable
81 mg PO DAILY
gabapentin 100 mg capsule
100 mg PO Q6H PRN (Reason: mild-mod pain)
loratadine 10 mg Tablet
10 mg PO DAILY
cholecalciferol (vitamin D3) [Vitamin D3] 25 mcg (1,000 unit) Tablet
50 mcg PO DAILY
pantoprazole [address] For Susp In Packet
20 mg PO DAILY
melatonin 5 mg Tablet
5 mg PO HS
guaifenesin 600 mg Tablet Extended Release 12hr
600 mg PO BID
Referrals:
Michael Vargas MD [Family Provider] -
Interventions
Interventions:
*Risk Screen - Suicide Last Done: 01/30/24 17:38
*General Assessment Last Done: 01/30/24 17:38
*Neglect/Abuse Screening Last Done: 01/30/24 17:38
ED- Fall Risk Assessment Last Done: 01/30/24 17:38
*ED COVID-19 Vaccine History Last Done: 01/30/24 17:38
ZV-Xpoles-Mucjtqqcil Assessment Last Done: 01/30/24 17:38
Discharge Date and Time
Print Language: GUATEMALAN
[2024-01-30] MEDS: NSS 1000 IV (18:49)
[2024-01-30 19:11] LABS: % Basophils 0.3 % (0-2); % Eosinophils 4.1 % (0-6); % Immature Granulocytes 2.2 % (0-0.5); % Lymphocytes 12.3 % (20.5-51.1); % Monocytes 6.1 % (1.7-9.3); Absolute Eosinophils 0.5 10^3/uL (0-0.7); Absolute Immature Granulocytes 0.3 10^3/uL (0-0.05); Absolute Lymphocytes 1.4 10^3/uL (1.2-3.4); Absolute Monocytes 0.7 10^3/uL (0.1-0.6); Absolute Neutrophils 8.7 10^3/uL (1.4-6.5); Hematocrit 30.8 % (37.0-47.0); Hemoglobin 10.3 g/dL (12.0-16.0); Mean Corp Hgb Conc. 33.4 g/dL (33.0-37.0); Mean Corpuscular Hgb 30.6 pg (27.0-31.0); Mean Corpuscular Volume 91.4 fL (81.0-99.0); Mean Platelet Volume 8.6 fL (7.4-10.4); Nucleated Red Blood Cells % 0 %; Platelet Count 157 10^3/uL (130-400); Red Blood Cell Count 3.37 10^6/uL (4.20-5.40); Red Cell Dist. Width 13.5 % (11.5-14.5); White Blood Cell Count 11.6 10^3/uL (4.8-10.8)
[2024-01-30 19:26] LABS: ALT (SGPT) < 10 U/L (0-35); AST (SGOT) 18 U/L (14-36); Albumin 3.9 g/dl (3.5-5.0); Alkaline Phosphatase 64 U/L (38-126); Blood Urea Nitrogen 46 mg/dl (7-17); Calcium 9.7 mg/dl (8.4-10.2); Carbon Dioxide 21 mmol/L (22-30); Chloride 105 mmol/L (98-107); Glucose 99 mg/dl (70-99); Potassium 4.4 mmol/L (3.5-5.1); Sodium 135 mmol/L (135-145); Total Bilirubin 0.3 mg/dl (0.2-1.3); Total Protein 7.7 g/dl (6.3-8.2); eGFR 43.61
[2024-01-30 19:51] LABS: Lipase 2296 U/L (23-300)
[2024-01-30 21:01] LABS: Urine Albumin Trace (Neg - Trace); Urine Bilirubin Negative (Negative); Urine Character Clear (Clear); Urine Color Yellow; Urine Glucose 1+ (Negative); Urine Ketone Negative (Negative); Urine Leukocyte Trace (Negative); Urine Nitrite Negative (Negative); Urine Occult Blood Negative (Negative); Urine Specific Gravity 1.025 (<1.030); Urine Urobilinogen Negative (Neg - 1+)
[2024-01-30 21:09] LABS: Urine Calcium Oxalate Crystals Present
[2024-01-30 21:12] LABS: Urine Bacteria Moderate (Negative); Urine Red Blood Cell 0-2 /HPF (0-2); Urine White Cell 0-2 /HPF (0-5)
--- NOTE | 2024-01-30 21:34 | HPS.HSE ---
Family Physician
-
Family Physician: Michael Vargas
Chief Complaint
-
Abd Pain, N/V
History of Present Illness
Patient is a 58y F with PMH significant for R hemiparesis s/p prior CVA, ileostomy, CKD III, hypertension and hypothyroidism who presents to ED from local [facility] complaining of abdominal pain with N/V. Patient was recently hospitalized at for
similar symptoms from 01/22 - 01/28. She was treated for SBO and possible aspiration pneumonia and was discharged back to the [facility]. Patient states that she did have an episode of N/V yesterday prior to discharge. Today, she noted pain in the
epigastric / RUQ region and had additional episodes of non-bloody, bilious emesis prompting return to the ED for evaluation. Work=-up in the ED reveals elevated lipase c/w pancreatitis - which was not noted on her prior admission.
Medical History
Past Medical History
Past Medical History: Reports Other
Additional Past Medical History:
ASCVD (PAD, CVA, CAD)
DM II
CKD 3B
Rheumatoid Arthritis
COPD
RACHEL
Peripheral neuropathy due to chemotherapy
Chronic pain syndrome/chronic opioid dependence
Radiation colitis
Cervical cancer -treated with radiation and chemotherapy
Nephrolithiasis
Chronic thrombocytopenia
Fibromyalgia
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
Parotid Mass
Hypothyroidism
Past Surgical History: Reports Other
Additional Past Surgical History:
Bowel resection and colostomy due to colon perforation
Colostomy Revision x 4 and ultimate Ileostomy (2021)
G-tube Placement
Hemiglossectomy & parotidectomy
Multiple Digital Amputations
Social History
Tobacco: Smoker
Alcohol: None
Drug: None
Family History
Family History: Not pertinent
Allergies / Home Medications
Allergies reflects when Allergies were last updated in [employer].
Home Medications with original date entered in [employer]
Allergy/Medication List:
Allergies
Allergy/AdvReac Type Severity Reaction Status Date / Time
adhesive Allergy TAPE-rash Verified 01/30/24 17:37
and itching
infliximab [From Remicade] Allergy Anaphylaxis Verified 01/30/24 17:37
latex Allergy Rash, Verified 01/30/24 17:37
itching,
Hives
Penicillins Allergy Unknown, Verified 01/30/24 17:37
tolerated
amoxicillin
and
ampicillin
in the past
Sulfa (Sulfonamide Allergy Hives, rash Verified 01/30/24 17:37
Antibiotics)
Home Medications
clopidogrel 75 mg tablet (Plavix) 75 mg PO DAILY CAD 06/25/23
acetaminophen 325 mg tablet 650 mg PO Q4H PRN mild pain/temp>100F 01/22/24
amlodipine 5 mg tablet 5 mg PO DAILY 01/22/24
ammonium lactate 12 % lotion 1 applic topical BID 01/22/24
aspirin 81 mg chewable tablet 81 mg PO DAILY 01/22/24
atorvastatin 40 mg tablet 40 mg PO HS 01/22/24
bisacodyl 10 mg rectal suppository (Dulcolax (bisacodyl)) 10 mg [place] DAILY PRN if mom is ineffective after 24hrs 01/22/24
buspirone 5 mg tablet 5 mg PO BID 01/22/24
cholecalciferol (vitamin D3) 25 mcg (1,000 unit) tablet (Vitamin D3) 50 mcg PO DAILY 01/22/24
gabapentin 100 mg capsule 100 mg PO Q6H PRN mild-mod pain 01/22/24
gabapentin 300 mg capsule 300 mg PO HS 01/22/24
guaifenesin 600 mg tablet, extended release 12 hr 600 mg PO BID 01/22/24
hydrocodone 5 mg-acetaminophen 325 mg tablet 1 tab PO Q6H PRN moderate to severe pain 01/22/24
levothyroxine 50 mcg tablet 50 mcg PO DAILY 01/22/24
loperamide 2 mg capsule (Imodium A-D) 2 mg PO Q6H PRN diarrhea 01/22/24
loratadine 10 mg tablet 10 mg PO DAILY 01/22/24
magnesium hydroxide 400 mg/5 mL oral suspension (Milk of Magnesia) 30 ml PO DAILY PRN if no bm x 3 days 01/22/24
melatonin 5 mg tablet 5 mg PO HS 01/22/24
pantoprazole 40 mg granules delayed-release for susp in packet 20 mg PO DAILY 01/22/24
sodium bicarbonate 650 mg tablet 650 mg PO Q8H 01/22/24
sodium phosphates 19 gram-7 gram/118 mL enema (Fleet Enema) 118 ml [place] DAILY PRN if dulcolax is ineffective after 24hrs 01/22/24
venlafaxine 100 mg tablet 100 mg PO BID 01/22/24
Review of Systems
-
History Source: Patient
A 12 point ROS was completed and negative except as noted: Yes
Constitutional: Reports Fatigue; Denies Fever or Chills
Respiratory: Denies Cough or Trouble Breathing
Cardiac: Denies Chest Pain or Palpitations
Abdomen/GI: Reports Abdominal Pain, Nausea and Vomiting
Musculoskeletal: Denies Joint Pain or Edema
Neurological: Denies Dizzy or Headache
Psych: Denies Depression or Anxiety
Physical Exam
Vital Signs
Vital Signs
Temp Pulse Resp BP Pulse Ox
98.9 F 71 16 143/76 99
01/30/24 17:38 01/30/24 19:00 01/30/24 19:00 01/30/24 19:00 01/30/24 17:38
Physical Exam
General: Other (58y F in mild distress due to abdominal pain.)
HEENT: Moist mucous membranes and PERRLA
Respiratory: Other (Few, scattered coarse breath sounds that improve with cough. No wheezing.)
Cardiac: S1/S2, Regular Rhythm and Murmur (II/ MINDY)
GI: Other (Soft, pos tenderness without rebound over R abdomen. Pos BS. LLQ Ostomy is full of soft stool. L-sided G tube site OK.)
Musculoskeletal: Other (Cool. Prior digital amputations. No active wounds / edema.)
Neuro: AO x 3 and Other (Dense R hemiparesis - no change from prior.)
Laboratory Results
-
01/30/24 18:47
01/30/24 18:46
Laboratory Results
Lactic Acid 1.0 mmol/L (0.7-2.0) 01/30/24 18:47
Total Bilirubin 0.3 mg/dl (0.2-1.3) 01/30/24 18:46
AST 18 U/L (14-36) 01/30/24 18:46
ALT < 10 U/L (0-35) 01/30/24 18:46
Alkaline Phosphatase 64 U/L (38-126) 01/30/24 18:46
Lipase 2296 U/L (23-300) H* 01/30/24 18:46
Impression/Plan
-
A/P: Patient is a 58y F with complicated PMH who presents to ED complaining of abdominal pain with N/V.
Acute Pancreatitis
- Admit for further evaluation and treatment.
- Lipase elevated now c/w pancreatitis.
- Check US to evaluate for gallstone disease.
- Open G-tube to gravity drainage for now.
- GI evaluation.
- Supportive care including pain control, antiemetics, IVFs, etc.
Recent SBO
- Ostomy now with significant stool output - doubt recurrence.
- Imaging ordered in the ED and is pending at present.
- Will vent G-tube for now as noted above.
- Routine ostomy care / monitor outputs.
ASCVD
- Significant history of CVA, PAD, etc.
- Stable. No chest pain, no new focal deficits, no new LE wounds, etc.
- Continue ASA for now. Resume other meds once tolerating significant POs.
- Follow for any new symptoms / complaints.
CKD III
- Stable. Renal function is at / near known baseline.
- RHETT during recent admission is improved.
- Follow for any changes.
- Gentle IVFs while NPO.
Chronic Aspiration / Dysphagia
- Speech eval during recent admission with laryngeal penetration noted.
- Thick liquids recommended. See prior Speech recs.
- Continue liquid / diet modification once PO intake restarted.
Hypothyroidism
- Continue T4 supplementation.
- Update TFTs.
Chronic Pain / Fibromyalgia
- Stable. Resume usual pain controlling meds once able to take PO.
- IV narcotic for acute pain / pancreatitis / etc.
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
Peripheral Neuropathy secondary to chemotherapy
Dysarthria s/p Partial Glossectomy
Diet-Controlled DM-II
- Stable. No acute issues.
- Follow for any changes.
DVT Prophylaxis: Heparin Subcut
Code Status: DNR
[2024-01-30] MEDS: LR 1000 IV (22:00)
[2024-01-30] MEDS: DILAUDID 0.5 MG IV (22:01)
[2024-01-31] VITALS (9 sets, daily range): BP systolic 128–167; BP diastolic 69–86; BMI 27.7
[2024-01-31] MEDS: DILAUDID 0.5 MG IV ×5 (02:28→20:21)
[2024-01-31] MEDS: LR 1000 IV ×3 (05:18→21:10)
[2024-01-31 05:36] LABS: Hematocrit 27.1 % (37.0-47.0); Mean Corp Hgb Conc. 33.2 g/dL (33.0-37.0); Mean Corpuscular Hgb 30.9 pg (27.0-31.0); Mean Corpuscular Volume 93.1 fL (81.0-99.0); Mean Platelet Volume 8.9 fL (7.4-10.4); Platelet Count 130 10^3/uL (130-400); Red Blood Cell Count 2.91 10^6/uL (4.20-5.40); Red Cell Dist. Width 13.3 % (11.5-14.5); White Blood Cell Count 9.3 10^3/uL (4.8-10.8)
[2024-01-31 06:00] LABS: ALT (SGPT) < 10 U/L (0-35); AST (SGOT) 14 U/L (14-36); Albumin 3.2 g/dl (3.5-5.0); Alkaline Phosphatase 73 U/L (38-126); Blood Urea Nitrogen 42 mg/dl (7-17); Calcium 9.4 mg/dl (8.4-10.2); Carbon Dioxide 20 mmol/L (22-30); Chloride 107 mmol/L (98-107); Direct Bilirubin 0.2 mg/dl (0.0-0.4); Estimated Creatinine Clearance 49 ml/min; Glucose 79 mg/dl (70-99); Potassium 3.9 mmol/L (3.5-5.1); Sodium 134 mmol/L (135-145); Total Bilirubin 0.2 mg/dl (0.2-1.3); Total Protein 6.7 g/dl (6.3-8.2); eGFR 43.61
[2024-01-31] MEDS: SYNTHROID 50 MCG PO (07:03)
[2024-01-31] MEDS: HEPARIN 5000 UNITS SC ×2 (09:57→21:10)
[2024-01-31] MEDS: LOW STRENGTH ASPIRIN 81 MG PO (09:57)
[2024-01-31] MEDS: PROTONIX IV 40 MG IV (09:57)
[2024-01-31] MEDS: NSS (PRESERVATIVE FREE) 10 ML IV (09:58)
--- NOTE | 2024-01-31 10:06 | CON.GI ---
Addendum entered and electronically signed by Mars Ambriz MD 01/31/24 13:22:
I saw and examined the patient.
The CREOSOTING ENGINEER or PA's note was reviewed and I agree with the note.
Comment: 58yo female recently admitted for PSBO/ileus managed non-operatively discharged two days ago now readmitted for recurrent vomiting. Lipase elevated at 2296 and admitted for management of pancreatitis. Denies EtOH. US shows gallstones.
LFTs normal. She reports decreased gas/stool in her ileostomy. 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 Also has PEG tube s/p CVA 09/06.
REC:
Check OBS series to rule out recurrent PSBO/ileus. This could be the cause for lipase elevation rather than acute pancreatitis
She has gallstone, but LFTs normal. No need for MRI/MRCP at this time
Agree with G tube to gravity. If SBO on xray, place PEG to suction
Monitor colostomy output
IVF- LR @150cc/hr currently
Original Note:
Consultation
-
Date/Time Consultation Requested: 01/31/24
Date/Time Consultation Performed: 01/31/24 1015
Requesting Provider: Dr. Yepez
Performing Provider: Dr. Ambriz / Soraya Melendez PA-C
Reason for Consultation: abdominal pain, pancreatitis
Medical History
Chief Complaint / HPI
Chief Complaint: abdominal pain, pancreatitis
History of Present Illness:
This is a 58 year old female with a complex medical history who was just admitted here at from 01/22 to 01/28 for partial small bowel obstruction vs ileus as well as pneumonia, [facility] to [facility], who returns to the hospital c/o new-onset
of periumbilical and epigastric abdominal pain yesterday. Pain is sharp, constant. +associated nausea and vomiting yesterday. No fever, chills. Labs in the ER showed significantly elevated lipase at 2296. LFTs normal, WBC count 9.3, Hgb 9.0 (which
is around her baseline), normocytic indices, platelets 130, BUN 42, creatinine 1.4. Ultrasound shows cholelithiasis, without evidence of acute cholecystitis and no ductal dilatation with CBD noted at 4mm. On prior imaging, CT abdomen/pelvis from
01/22/24 showed normal pancreas, but was limited due to no IV contrast. She has never had pancreatitis before. She does report a history of gallstones. She denies alcohol use. No recent new medications and she denies recent injury or trauma. Medical
history is significant for CVA 08/2023 with residual R hemiparesis (on Plavix), s/p PEG tube, HTN, CKD-3, RA, COPD, hypothyroidism, cervical cancer (s/p hysterectomy, chemo, radiation), radiation colitis requiring colectomy with ileostomy done at
[facility] in 2015, CAD, NIDDM, parotid mass, RACHEL (on CPAP), depression, anxiety, and peripheral neuropathy. She is known to our GI practice and was previously a patient of Dr. Perez's. Endoscopy in 2018 showed LA Grade C esophagitis. She takes
pantoprazole 20mg once a day and denies heartburn, reflux. She also notes that she stopped using the PEG tube about 3 months ago and has been tolerating food and liquids by mouth. No family history of any GI malignancies.
Past Medical History
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
2016, CAD, NIDDM, parotid mass, RACHEL (on CPAP), depression, anxiety, neuropathy)
Past Surgical History: Other (Bowel resection and colostomy due to colon perforation Colostomy Revision x 4 and ultimate Ileostomy (2021) G-tube Placement Hemiglossectomy & parotidectomy Multiple Digital Amputations)
Social History
Tobacco: Smoker
Alcohol: None
Drug: None
Personal:
Living: [facility]
Family History
Family History: Other (no family history of GI malignancies)
Allergies / Home Medications
Allergy/AdvReac Type Severity Reaction Status Date / Time
adhesive Allergy TAPE-rash Verified 01/30/24 17:37
and itching
infliximab [From Remicade] Allergy Anaphylaxis Verified 01/30/24 17:37
latex Allergy Rash, Verified 01/30/24 17:37
itching,
Hives
Penicillins Allergy Unknown, Verified 01/30/24 17:37
tolerated
amoxicillin
and
ampicillin
in the past
Sulfa (Sulfonamide Allergy Hives, rash Verified 01/30/24 17:37
Antibiotics)
�Medication �Instructions �Recorded
clopidogrel 75 mg tablet (Plavix) 75 mg PO DAILY CAD 06/25/23
acetaminophen 325 mg tablet 650 mg PO Q4H PRN mild 01/22/24
pain/temp>100F
amlodipine 5 mg tablet 5 mg PO DAILY 01/22/24
ammonium lactate 12 % lotion 1 applic topical BID 01/22/24
aspirin 81 mg chewable tablet 81 mg PO DAILY 01/22/24
atorvastatin 40 mg tablet 40 mg PO HS 01/22/24
bisacodyl 10 mg rectal suppository 10 mg [place] DAILY PRN if mom is 01/22/24
(Dulcolax (bisacodyl)) ineffective after 24hrs
buspirone 5 mg tablet 5 mg PO BID 01/22/24
cholecalciferol (vitamin D3) 25 50 mcg PO DAILY 01/22/24
mcg (1,000 unit) tablet (Vitamin
D3)
gabapentin 100 mg capsule 100 mg PO Q6H PRN mild-mod pain 01/22/24
gabapentin 300 mg capsule 300 mg PO HS 01/22/24
guaifenesin 600 mg tablet, 600 mg PO BID 01/22/24
extended release 12 hr
hydrocodone 5 mg-acetaminophen 325 1 tab PO Q6H PRN moderate to 01/22/24
mg tablet severe pain
levothyroxine 50 mcg tablet 50 mcg PO DAILY 01/22/24
loperamide 2 mg capsule (Imodium 2 mg PO Q6H PRN diarrhea 01/22/24
A-D)
loratadine 10 mg tablet 10 mg PO DAILY 01/22/24
magnesium hydroxide 400 mg/5 mL 30 ml PO DAILY PRN if no bm x 3 01/22/24
oral suspension (Milk of Magnesia) days
melatonin 5 mg tablet 5 mg PO HS 01/22/24
pantoprazole 40 mg granules 20 mg PO DAILY 01/22/24
delayed-release for susp in packet
sodium bicarbonate 650 mg tablet 650 mg PO Q8H 01/22/24
sodium phosphates 19 gram-7 118 ml [place] DAILY PRN if dulcolax is 01/22/24
gram/118 mL enema (Fleet Enema) ineffective after 24hrs
venlafaxine 100 mg tablet 100 mg PO BID 01/22/24
Review of Systems
-
History Source: Patient
All other systems: A 12 pt ROS was Negative except as stated above in HPI
Vital Signs
Temp Pulse Resp BP Pulse Ox
98.6 F 58 14 132/70 98
01/31/24 00:00 01/31/24 09:00 01/31/24 09:00 01/31/24 08:00 01/31/24 08:00
Physical Exam
Exam
General: Other (chronically ill appearing patient in no acute distress)
Respiratory: Clear
Cardiac: Regular Rhythm
GI: Soft, Non Distended, Normal Bowel Sounds and Tender (+epigastric tenderness, ostomy in left lower abdomen with brown liquid stool)
Skin: Warm and Dry
Neuro: AO x 3
Psych: Calm
Results
WBC 9.3 10^3/uL (4.8-10.8) 01/31/24 05:27
Hgb 9.0 g/dL (12.0-16.0) L 01/31/24 05:27
Hct 27.1 % (37.0-47.0) L 01/31/24 05:27
MCV 93.1 fL (81.0-99.0) 01/31/24 05:27
Plt Count 130 10^3/uL (130-400) 01/31/24 05:27
Absolute Neuts (auto) 8.7 10^3/uL (1.4-6.5) H 01/30/24 18:47
Sodium 134 mmol/L (135-145) L 01/31/24 05:27
Potassium 3.9 mmol/L (3.5-5.1) 01/31/24 05:27
Chloride 107 mmol/L (98-107) 01/31/24 05:27
Carbon Dioxide 20 mmol/L (22-30) L 01/31/24 05:27
BUN 42 mg/dl (7-17) H 01/31/24 05:27
Creatinine 1.4 mg/dL (0.6-1.0) H 01/31/24 05:27
Calcium 9.4 mg/dl (8.4-10.2) 01/31/24 05:27
Total Bilirubin 0.2 mg/dl (0.2-1.3) 01/31/24 05:27
AST 14 U/L (14-36) 01/31/24 05:27
ALT < 10 U/L (0-35) 01/31/24 05:27
Alkaline Phosphatase 73 U/L (38-126) 01/31/24 05:27
Lipase 2296 U/L (23-300) H* 01/30/24 18:46
Diagnostic Image Results:
US, 01/31/24:
The liver is normal.
There is normal flow in the portal and hepatic veins
The spleen is normal.
There is cholelithiasis.
There is no thickening of the gallbladder wall.
There is no pericholecystic edema
There is no dilatation of the common or intrahepatic ducts.
The common duct measures 4 mm.
There are small nonobstructing left-sided renal calculi measuring up to 4.5 mm
The kidneys are otherwise normal in size contour and echogenicity bilaterally.
There is no hydronephrosis.
The pancreas, upper abdominal aorta and upper inferior vena cava are normal
Prior GI Procedures:
EGD:
Endoscopy, 2018, Dr. Perez:
Normal duodenal bulb and second portion of the duodenum. Biopsied.
- Erythematous mucosa in the antrum. Biopsied.
- Small hiatal hernia.
- Normal cardia, gastric fundus and gastric body.
- LA Grade C reflux esophagitis.
- Z-line irregular, 40 cm from the incisors.
Colonoscopy:
Flexible sigmoidoscopy, 2016, Dr. Prieto:
- Stricture at 18 cm proximal to the anus. Unable to traverse. Biopsied. Likely benign from radiation.
- Diffuse mild- moderate inflammation was found in the
rectum (less severe in the rectum) and in the sigmoid
colon, rule out radiation colitis. Biopsied.
Recommendation: - Discharge patient to home.
- Low residue diet as tolerated.
- Await pathology results.
- Refer to a colo-rectal surgeon
Colonoscopy, 2012, Dr. Perez:
Inflamed, nodular, scarred and ulcerated mucosa.
Biopsied.
- Stricture colon. Follow up with surgery was recommended.
Assessment / Plan
-
58 year old female with a complex medical history who was just admitted here at from 01/22 to 01/28 for partial small bowel obstruction vs ileus as well as pneumonia, [facility] to [facility], who returns to the hospital c/o new-onset
periumbilical and epigastric abdominal pain since yesterday. Pain is sharp, constant. +associated nausea and vomiting yesterday. No fever, chills. Labs in the ER showed significantly elevated lipase at 2296. LFTs normal, WBC count 9.3, Hgb 9.0
(which is around her baseline), normocytic indices, platelets 130, BUN 42, creatinine 1.4. Ultrasound shows cholelithiasis, without evidence of acute cholecystitis and no ductal dilatation with CBD noted at 4mm. On prior imaging, CT abdomen/pelvis
from 01/22/24 showed normal pancreas, but was limited due to no IV contrast. She has never had pancreatitis before. She does report a history of gallstones. She denies alcohol use. No recent new medications and she denies recent injury or trauma.
Medical history is significant for CVA 08/2023 with residual R hemiparesis (on Plavix), s/p PEG tube, HTN, CKD-3, RA, COPD, hypothyroidism, cervical cancer (s/p hysterectomy, chemo, radiation), radiation colitis requiring colectomy with ileostomy
done at [facility] in 2016, CAD, NIDDM, parotid mass, RACHEL (on CPAP), depression, anxiety, and peripheral neuropathy. She is known to our GI practice and was previously a patient of Dr. Perez's. Endoscopy in 2018 showed LA Grade C esophagitis. She
takes pantoprazole 20mg once a day and denies heartburn, reflux. She also notes that she stopped using the PEG tube about 3 months ago and has been tolerating food and liquids by mouth. No family history of any GI malignancies.
IMPRESSION / PLAN:
Abdominal Pain, suspect acute pancreatitis secondary to gallstones VS obstruction
-lipase 2296
-US showing cholelithiasis, with normal pancreas, liver, and no ductal dilatation
-NPO
-Continue IV fluids
-Continue analgesics and anti-emetics PRN
-consider Surgical evaluation for eventual cholecystectomy - outpatient vs inpatient - will follow her clinical course
Recent partital SBO vs ileus
-ostomy with brown liquid stool; she states it has been draining normally
-will order obstruction series
Chronic Aspiration / Dysphagia
- Speech eval during recent admission with laryngeal penetration noted.
- Thick liquids recommended. See prior Speech recs.
- Continue liquid / diet modification once PO intake restarted.
Other medical issues managed as per hospitalist.
-
-
Thank you for consultation and allowing me to participate in the patient's care. Please call the [facility] during the after hours with any questions or concerns.
[2024-01-31] MEDS: TYLENOL 650 MG PO (10:07)
--- NOTE | 2024-01-31 14:41 | W.PN.HOSP.TC ---
Today's Communication/Plan
-
CT A/P
IV fluids
Assessment / Plan
Assessment / Plan
A/P: Patient is a 58y F with complicated PMH who presents to ED complaining of abdominal pain with N/V.
Elevated Lipase with abdominal pain, nausea, vomiting -acute Pancreatitis versus other GI pathology
- With recent concern of partial small bowel obstruction versus ileus and now recurrent symptoms will get a CT of the abdomen pelvis with contrast for further evaluation.
Ultrasound of the abdomen on this admission shows cholelithiasis. Normal LFTs noted.
GI input noted.
Keep n.p.o. till CT scan of abdomen and pelvis.
Supportive with IV fluids in meantime.
Recent SBO
- Ostomy now with significant stool output - doubt recurrence.
- - Will vent G-tube for now as noted above.
- Routine ostomy care / monitor outputs.
ASCVD
- Significant history of CVA, PAD, etc.
- Stable. No chest pain, no new focal deficits, no new LE wounds, etc.
- Continue ASA for now. Resume other meds once tolerating significant POs.
- Follow for any new symptoms / complaints.
CKD III
- Stable. Renal function is at / near known baseline.
- RHETT during recent admission is improved.
- Follow for any changes.
- Gentle IVFs while NPO.
Chronic Aspiration / Dysphagia
- Speech eval during recent admission with laryngeal penetration noted.
- Thick liquids recommended. See prior Speech recs.
- Continue liquid / diet modification once PO intake restarted.
Hypothyroidism
- Continue T4 supplementation.
- Update TFTs.
Chronic Pain / Fibromyalgia
- Stable. Resume usual pain controlling meds once able to take PO.
- IV narcotic for acute pain / pancreatitis / etc.
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
Peripheral Neuropathy secondary to chemotherapy
Dysarthria s/p Partial Glossectomy
Diet-Controlled DM-II
- Stable. No acute issues.
- Follow for any changes.
DVT Prophylaxis: Heparin Subcut
Code Status: DNR
Anticipated Discharge: > 48 hours
Subjective/Interval History
-
Date of Service: January 31, 2024
Patient continues to complain of nausea. No vomiting. G-tube is to gravity. She did have around 50 cc of ostomy output in the ER.
She continues to complain of abdominal pain around [facility] area. No fever or chills.
Objective Data
-
Labs:
Laboratory Results
01/31/24
05:27
WBC 9.3
Hgb 9.0 L
Hct 27.1 L
Plt Count 130
Sodium 134 L
Potassium 3.9
Chloride 107
Carbon Dioxide 20 L
BUN 42 H
Creatinine 1.4 H
Glucose 79
Calcium 9.4
Total Bilirubin 0.2
AST 14
ALT < 10
Alkaline Phosphatase 73
Vital Signs:
Vital Signs
Temp Pulse Resp BP Pulse Ox
98.6 F 58 14 132/70 98
01/31/24 00:00 01/31/24 09:00 01/31/24 09:00 01/31/24 08:00 01/31/24 08:00
Review of Systems
-
Respiratory: Denies Trouble Breathing
Cardiac: Denies Chest Pain
Neuro: Denies Dizzy
Physical Exam
-
General: No Apparent Distress
HEENT: Moist Mucous Membranes
Respiratory: Clear to Auscultation
Cardiac: Regular Rhythm and S1/S2
GI: Soft, Nondistended, Normal Bowel Sounds and Tender (RUQ and rt periumbilical area)
Neuro: AO x 3; Negative No Motor Deficits (RT HEMIPARESIS)
Psych: Calm
Data Reviewed
-
Labs: Labs Reviewed by me
[2024-01-31] MEDS: OMNIPAQUE 50 ML PO (15:41)
[2024-02-01] VITALS (8 sets, daily range): BP systolic 138–181; BP diastolic 77–89; PULSE 62; O2SAT 99
[2024-02-01] MEDS: DILAUDID 0.5 MG IV ×4 (00:31→22:00)
--- NOTE | 2024-02-01 02:23 | PTCARENOTE ---
Received pt from ER @ 2114. Pt RG Hernadez. Oriented to room, call [facility] and plan of care.
[2024-02-01] MEDS: SYNTHROID 50 MCG PO (05:06)
[2024-02-01] MEDS: LR 1000 IV ×3 (05:06→22:01)
[2024-02-01 06:58] LABS: Hematocrit 28.3 % (37.0-47.0); Hemoglobin 9.6 g/dL (12.0-16.0); Mean Corp Hgb Conc. 33.9 g/dL (33.0-37.0); Mean Corpuscular Volume 91.3 fL (81.0-99.0); Mean Platelet Volume 8.8 fL (7.4-10.4); Platelet Count 132 10^3/uL (130-400); Red Cell Dist. Width 13.2 % (11.5-14.5); White Blood Cell Count 6.6 10^3/uL (4.8-10.8)
[2024-02-01 08:06] LABS: Blood Urea Nitrogen 29 mg/dl (7-17); Calcium 9.9 mg/dl (8.4-10.2); Carbon Dioxide 24 mmol/L (22-30); Chloride 107 mmol/L (98-107); Estimated Creatinine Clearance 48 ml/min; Glucose 71 mg/dl (70-99); Lipase 1328 U/L (23-300); Potassium 3.8 mmol/L (3.5-5.1); Sodium 137 mmol/L (135-145); eGFR 47.66
[2024-02-01] MEDS: LOW STRENGTH ASPIRIN 81 MG PO (09:23)
[2024-02-01] MEDS: HEPARIN 5000 UNITS SC ×2 (09:23→22:01)
[2024-02-01] MEDS: PROTONIX IV 40 MG IV (09:23)
[2024-02-01] MEDS: NSS (PRESERVATIVE FREE) 10 ML IV (09:23)
--- NOTE | 2024-02-01 11:38 | W.PN.GI.CBS2 ---
Today's Communication / Plan
-
improving pain
OK for clear liquids
Assessment / Plan
-
58 year old female with a complex medical history who was just admitted here at from 01/22 to 01/28 for partial small bowel obstruction vs ileus as well as pneumonia, discharged to correction, who returns to the hospital c/o new-onset
periumbilical and epigastric abdominal pain since yesterday. Pain is sharp, constant. +associated nausea and vomiting yesterday. No fever, chills. Labs in the ER showed significantly elevated lipase at 2296. LFTs normal, WBC count 9.3, Hgb 9.0
(which is around her baseline), normocytic indices, platelets 130, BUN 42, creatinine 1.4. Ultrasound shows cholelithiasis, without evidence of acute cholecystitis and no ductal dilatation with CBD noted at 4mm. On prior imaging, CT abdomen/pelvis
from 01/22/24 showed normal pancreas, but was limited due to no IV contrast. She has never had pancreatitis before. She does report a history of gallstones. She denies alcohol use. No recent new medications and she denies recent injury or trauma.
Medical history is significant for CVA 08/2023 with residual R hemiparesis (on Plavix), s/p PEG tube, HTN, CKD-3, RA, COPD, hypothyroidism, cervical cancer (s/p hysterectomy, chemo, radiation), radiation colitis requiring colectomy with ileostomy
done at [facility] in 2016, CAD, NIDDM, parotid mass, RACHEL (on CPAP), depression, anxiety, and peripheral neuropathy. She is known to our GI practice and was previously a patient of Dr. Perez's. Endoscopy in 2018 showed LA Grade C esophagitis. She
takes pantoprazole 20mg once a day and denies heartburn, reflux. She also notes that she stopped using the PEG tube about 3 months ago and has been tolerating food and liquids by mouth. No family history of any GI malignancies.
01/31/24 Obstruction series: NEGATIVE
01/31/24 CT abd/pelvis:
1. MILD RIGHT HYDRONEPHROSIS which has increased since 01/22/2024 and could be secondary to ascending right urinary tract infection and acute right pyelonephritis. No CT evidence for obstructing right ureteral calculus.
2. Moderate to severe chronic left renal disease and innumerable nonobstructing left intrarenal calculi.
3. Previous subtotal colectomy and left anterior abdominal wall ileostomy.
4. Mild splenomegaly.
5. MODERATE RIGHT LOWER LOBE ASPIRATION PNEUMONIA.
6. Very severe discogenic degenerative disease at L3/L4 and L4/L5.
IMPRESSION / PLAN:
Abdominal Pain, suspect acute pancreatitis secondary to gallstones
-US showing cholelithiasis, with normal pancreas, liver, and no ductal dilatation
-CT notes mild pancreatic atrophy but otherwise no abnormality
-pain improving
-Continue IV fluids
-Continue analgesics and anti-emetics PRN
-OK for clear liquids
-consider Surgical evaluation for eventual cholecystectomy - outpatient vs inpatient - will follow her clinical course
Recent partital SBO vs ileus
-ostomy with brown liquid stool output
-obstruction series negative
Other medical issues managed as per hospitalist.
Subjective
Subjective
Date of Service: February 01, 2024
Pt feeling 'a little better' today. Still with abd pain and nausea, no further vomiting.
Objective
Data Reviewed
Laboratory Data:
Laboratory Results
02/01/24 06:30
02/01/24 06:30
Laboratory Results
Total Bilirubin 0.2 mg/dl (0.2-1.3) 01/31/24 05:27
AST 14 U/L (14-36) 01/31/24 05:27
ALT < 10 U/L (0-35) 01/31/24 05:27
Alkaline Phosphatase 73 U/L (38-126) 01/31/24 05:27
Lipase 1328 U/L (23-300) H* 02/01/24 06:30
Vital Signs and I&O:
Vital Signs
Temp Pulse Resp BP Pulse Ox
99.1 F 65 18 152/82 100
02/01/24 11:32 02/01/24 11:32 02/01/24 11:32 02/01/24 11:32 02/01/24 11:32
I&O
01/31/24 02/01/24 02/02/24
06:59 06:59 06:59
Output Total 300 / 300
Balance -300 / -300
Physical Exam
Physical Exam
HEENT: Anicteric
GI: Soft, Non Distended and Tender (+epigastric/periumbilical tenderness; brown liquid stool in ostomy)
--- NOTE | 2024-02-01 13:45 | W.PN.UPDATE ---
Addendum entered and electronically signed by Jessenia Queen MD 02/01/24 18:30:
Apparently, patient was planning to go back [facility]. They would not take her back until she is medically stable regardless of whether she signed out AGAINST MEDICAL ADVICE or not. Therefore I have canceled the discharge and the patient
will resume continued care here.
Original Note:
Update Note
Progress Note Update
Called to see patient as patient is leaving AGAINST MEDICAL ADVICE
She has pyelonephritis and aspiration pneumonia--I have explained the possibility of sepsis and/or if she leaves AGAINST MEDICAL ADVICE
Her response was 'I do not care'.
--- NOTE | 2024-02-01 14:08 | PTCARENOTE ---
Pt was crying throughout the morning saying she is claustrophobic. pt wanted to be out in the [address] roaming the halls, but she is not medically stable to do that. pt then stated that she wants to leave against medical advice. Dr. Queen was
made aware. saw patient and made her aware of the danger of signing out against medical advice. she is aware of it and still wanted to sign out. i also educated the patient on the seriousness of her wanting to leave but she still refuses to
stay. pt signed AMA and was taken out via wheelchair to the discharge lounge until her son comes to pick her up. Dr. Queen and patients aware of what is going on.
--- NOTE | 2024-02-01 15:02 | CM ---
Refractory Technician was unable to complete initial assessment prior to patient signing out AMA this afternoon
--- NOTE | 2024-02-01 18:22 | PTCARENOTE ---
Patient re-admitted in to 433. AAOx3. Oriented to unit and call [facility] system. Agreeable with ringing for assistance, states she will not attempt to get OOB. Daughter at bedside.
--- NOTE | 2024-02-01 18:40 | VATNOTE ---
Patient with no IV access. Attempted to place IV unsuccessful another VAT nurse to attempt.
[2024-02-02] MEDS: DILAUDID 0.5 MG IV ×5 (02:01→19:27)
[2024-02-02 04:05] VITALS: BP 119/57
[2024-02-02] MEDS: LR 1000 IV ×3 (05:21→23:21)
[2024-02-02] MEDS: SYNTHROID 50 MCG PO (05:58)
[2024-02-02 06:00] VITALS: BMI 27.3
[2024-02-02] MEDS: TYLENOL 650 MG PO ×2 (06:11→23:19)
[2024-02-02 07:58] VITALS: BP 90/58
[2024-02-02] MEDS: LOW STRENGTH ASPIRIN 81 MG PO (08:49)
[2024-02-02] MEDS: HEPARIN 5000 UNITS SC ×2 (08:50→19:26)
[2024-02-02] MEDS: NSS (PRESERVATIVE FREE) 10 ML IV (08:50)
[2024-02-02] MEDS: PROTONIX IV 40 MG IV (08:50)
--- NOTE | 2024-02-02 10:01 | W.PN.GI.CBS2 ---
Today's Communication / Plan
-
Okay to resume PEG tube feeds
Speech evaluation to clear for oral intake
Assessment / Plan
-
58 year old female with a complex medical history who was just admitted here at from 01/22 to 01/28 for partial small bowel obstruction vs ileus as well as pneumonia, discharged to retirement, who returns to the hospital c/o new-onset
periumbilical and epigastric abdominal pain since yesterday. Pain is sharp, constant. +associated nausea and vomiting yesterday. No fever, chills. Labs in the ER showed significantly elevated lipase at 2296. LFTs normal, WBC count 9.3, Hgb 9.0
(which is around her baseline), normocytic indices, platelets 130, BUN 42, creatinine 1.4. Ultrasound shows cholelithiasis, without evidence of acute cholecystitis and no ductal dilatation with CBD noted at 4mm. On prior imaging, CT abdomen/pelvis
from 01/22/24 showed normal pancreas, but was limited due to no IV contrast. She has never had pancreatitis before. She does report a history of gallstones. She denies alcohol use. No recent new medications and she denies recent injury or trauma.
Medical history is significant for CVA 08/2023 with residual R hemiparesis (on Plavix), s/p PEG tube, HTN, CKD-3, RA, COPD, hypothyroidism, cervical cancer (s/p hysterectomy, chemo, radiation), radiation colitis requiring colectomy with ileostomy
done at [facility] in 2016, CAD, NIDDM, parotid mass, RACHEL (on CPAP), depression, anxiety, and peripheral neuropathy. She is known to our GI practice and was previously a patient of Dr. Perez's. Endoscopy in 2018 showed LA Grade C esophagitis. She
takes pantoprazole 20mg once a day and denies heartburn, reflux. She also notes that she stopped using the PEG tube about 3 months ago and has been tolerating food and liquids by mouth. No family history of any GI malignancies.
01/31/24 Obstruction series: NEGATIVE
01/31/24 CT abd/pelvis:
1. MILD RIGHT HYDRONEPHROSIS which has increased since 01/22/2024 and could be secondary to ascending right urinary tract infection and acute right pyelonephritis. No CT evidence for obstructing right ureteral calculus.
2. Moderate to severe chronic left renal disease and innumerable nonobstructing left intrarenal calculi.
3. Previous subtotal colectomy and left anterior abdominal wall ileostomy.
4. Mild splenomegaly.
5. MODERATE RIGHT LOWER LOBE ASPIRATION PNEUMONIA.
6. Very severe discogenic degenerative disease at L3/L4 and L4/L5.
IMPRESSION / PLAN:
- Elevated lipase level but no evidence of pancreatitis noted on CT or ultrasound, pancreatic atrophy noted. she does have gallstones currently asymptomatic from it but if she does develop symptoms of biliary colic will need eventual cholecystectomy.
- Most likely had ileus, obstruction series and CT were negative for bowel obstruction. She does have adequate colostomy output. Okay to start diet as recommended by speech and advance as tolerated.
-I also requested a speech evaluation since the CT showed aspiration pneumonia may need reevaluation to clear for diet discussed with speech and nurse.
-Continue n.p.o. for now till cleared by speech.
-Can resume PEG tube feeds
-History of esophagitis continue PPI twice daily
Subjective
Subjective
Date of Service: February 02, 2024
Sleepy but arousable. Noted events from yesterday patient wanted to leave [facility] but [facility] would not take patient unless discharged when medically stable. She denies any abdominal pain no nausea or vomiting.
Objective
Data Reviewed
Laboratory Data:
Laboratory Results
02/01/24 06:30
02/01/24 06:30
Laboratory Results
Total Bilirubin 0.2 mg/dl (0.2-1.3) 01/31/24 05:27
AST 14 U/L (14-36) 01/31/24 05:27
ALT < 10 U/L (0-35) 01/31/24 05:27
Alkaline Phosphatase 73 U/L (38-126) 01/31/24 05:27
Lipase 1328 U/L (23-300) H* 02/01/24 06:30
Vital Signs and I&O:
Vital Signs
Temp Pulse Resp BP Pulse Ox
99.6 F 72 16 90/58 97
02/02/24 07:58 02/02/24 07:58 02/02/24 07:58 02/02/24 07:58 02/02/24 07:58
I&O
02/01/24 02/02/24 02/03/24
06:59 06:59 06:59
Intake Total 1480 / 1480
Output Total 300 / 300 250 / 250
Balance -300 / -300 1480 / 1480 -250 / -250
Physical Exam
Physical Exam
Cardiology: Normal Sinus Rhythm
GI: Soft, Non Distended, Non Tender, Normal Bowel Sounds and Other (Colostomy with liquid greenish-brown stool)
--- NOTE | 2024-02-02 13:19 | CM ---
CM following re: discharge planning.
Reviewed pt's chart, met with [pt and pt's daughter at bedside.
Pt is a 58 year old female, admitted with primary dx of Abdominal pain, nausea and vomiting.
Pt reports she has been living at [facility] since October 2023, is a half-way care resident there, has 2 supportive children. pt expressed her agreement to complete her treatment here at and will return back to [facility] for
a emt intermediate care. Pt reports she is w/c bound at [facility] and requires total care.
D/C plan: return back to [facility] when medically stable.
CM will follow to assist pt with discharge back to [facility] for a emt intermediate care.
--- NOTE | 2024-02-02 15:15 | PTCARENOTE ---
Pt became very tearful and agitated Speech Therapy was not able to see her today. She had been waiting for evaluation of swallowing and has been NPO (d/t Dx of Aspiration PNA). Pt states 'I have not eaten since Sunday'. Earlier today Pt daughter
brought her a sandwich, turkmen fries, and regular soda from outside the hospital. Pt ate an undetermined amount before being advised that she is NPO. TT to Dr. Queen to advise of situation. New order for Pureed Diet rec'd. Speech to see Pt and
submit rec's in the AM.
--- NOTE | 2024-02-02 15:20 | W.PN.HOSP.TC ---
Today's Communication/Plan
-
start tube feeds until speech eval
speech eval
cont abx
Assessment / Plan
Assessment / Plan
pt is a 58 year old female
Elevated Lipase with abdominal pain, nausea, vomiting--acute Pancreatitis versus other GI pathology--likely with ileus--speech eval--GI said OK for tube feeds
Recent SBO- Ostomy now with significant stool output - doubt recurrence.
ASCVD- Significant history of CVA, PAD, etc.- Continue ASA for now. Resume other meds once tolerating significant POs.
CKD III- Stable. Renal function is at / near known baseline.
Chronic Aspiration / Dysphagia-- Speech eval during recent admission with laryngeal penetration noted - Thick liquids recommended. See prior Speech recs - Continue liquid / diet modification once PO intake restarted.
Hypothyroidism- Continue T4 supplementation- Update TFTs.
Chronic Pain / Fibromyalgia- Stable. Resume usual pain controlling meds once able to take PO- IV narcotic for acute pain / pancreatitis / etc.
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
Peripheral Neuropathy secondary to chemotherapy
Dysarthria s/p Partial Glossectomy
Diet-Controlled DM-II- Stable. No acute issues. - Follow for any changes.
DVT Prophylaxis: Heparin Subcut
Code Status: DNR
Anticipated Discharge: > 48 hours
Subjective/Interval History
-
Date of Service: February 02, 2024
pt could not return to NH despite signing out AMA as NH would not take her back until medically cleared
Objective Data
-
Vital Signs:
max temp for 24 hours
02/01/24
11:32
Temp 99.1 F
Vital Signs
Temp Pulse Resp BP Pulse Ox
99.6 F 72 16 90/58 97
02/02/24 07:58 02/02/24 07:58 02/02/24 07:58 02/02/24 07:58 02/02/24 07:58
I&O
02/01/24 02/02/24 02/03/24
06:59 06:59 06:59
Intake Total 1480 / 1480
Output Total 300 / 300 250 / 250
Balance -300 / -300 1480 / 1480 -250 / -250
Review of Systems
-
All other systems: Reviewed and negative
Physical Exam
-
General: Appears Chronically Ill
HEENT: Normocephalic and Atraumatic; Negative Oxygen
Respiratory: Rhonchi (left base)
Cardiac: Regular Rhythm and S1/S2; Negative Murmur
GI: Soft, Nontender, Nondistended and Normal Bowel Sounds
Musculoskeletal: No Clubbing, No Cyanosis and No Edema
Neuro: Awake
[2024-02-02 15:28] VITALS: BP 113/81
[2024-02-02] MEDS: ZOSYN 50 IV ×2 (17:09→22:14)
[2024-02-02 19:16] VITALS: BP 118/80
[2024-02-02] MEDS: FLUSH (NSS) 2 FLUSH IV ×2 (19:27→22:14)
[2024-02-02 22:24] VITALS: BP 121/69
[2024-02-03] MEDS: DILAUDID 0.5 MG IV ×4 (03:33→20:23)
[2024-02-03] MEDS: ZOSYN 50 IV ×4 (03:35→21:39)
[2024-02-03 03:45] VITALS: BP 107/65
[2024-02-03 06:00] VITALS: BMI 27.6
[2024-02-03 06:19] LABS: ALT (SGPT) < 10 U/L (0-35); AST (SGOT) 16 U/L (14-36); Albumin 2.9 g/dl (3.5-5.0); Alkaline Phosphatase 67 U/L (38-126); Blood Urea Nitrogen 24 mg/dl (7-17); Calcium 9.3 mg/dl (8.4-10.2); Carbon Dioxide 26 mmol/L (22-30); Chloride 107 mmol/L (98-107); Estimated Creatinine Clearance 39 ml/min; Glucose 87 mg/dl (70-99); Lipase 1711 U/L (23-300); Magnesium 1.3 mg/dl (1.6-2.3); Potassium 3.6 mmol/L (3.5-5.1); Sodium 137 mmol/L (135-145); Total Bilirubin 0.2 mg/dl (0.2-1.3); Total Protein 6.1 g/dl (6.3-8.2); eGFR 37.15
[2024-02-03 06:21] LABS: Hematocrit 25.1 % (37.0-47.0); Hemoglobin 8.2 g/dL (12.0-16.0); Mean Corp Hgb Conc. 32.7 g/dL (33.0-37.0); Mean Corpuscular Hgb 30.7 pg (27.0-31.0); Red Blood Cell Count 2.67 10^6/uL (4.20-5.40); Red Cell Dist. Width 13.2 % (11.5-14.5); White Blood Cell Count 3.3 10^3/uL (4.8-10.8)
[2024-02-03] MEDS: SYNTHROID 50 MCG PO (06:37)
[2024-02-03] MEDS: LR 1000 IV ×2 (06:40→16:28)
[2024-02-03 07:56] VITALS: BP 160/89
[2024-02-03 08:13] LABS: Mean Platelet Volume 9.2 fL (7.4-10.4); Platelet Count 80 10^3/uL (130-400)
[2024-02-03] MEDS: HEPARIN 5000 UNITS SC ×2 (09:06→20:20)
[2024-02-03] MEDS: LOW STRENGTH ASPIRIN 81 MG PO (09:07)
[2024-02-03] MEDS: PROTONIX IV 40 MG IV (09:07)
[2024-02-03] MEDS: NSS (PRESERVATIVE FREE) 10 ML IV (09:07)
[2024-02-03] MEDS: ZOFRAN 4 MG IV (09:11)
[2024-02-03] MEDS: FLUSH (NSS) 1 FLUSH IV (09:14)
--- NOTE | 2024-02-03 09:17 | W.PN.GI.CBS2 ---
Today's Communication / Plan
-
Diet as per speech
Labs with new thrombocytopenia most likely related to medications possibly from Zosyn or PPI or heparin SC, will DC home Protonix and switch to Pepcid
Assessment / Plan
-
58 year old female with a complex medical history who was just admitted here at from 01/22 to 01/28 for partial small bowel obstruction vs ileus as well as pneumonia, discharged to shelter, who returns to the hospital c/o new-onset
periumbilical and epigastric abdominal pain since yesterday. Pain is sharp, constant. +associated nausea and vomiting yesterday. No fever, chills. Labs in the ER showed significantly elevated lipase at 2296. LFTs normal, WBC count 9.3, Hgb 9.0
(which is around her baseline), normocytic indices, platelets 130, BUN 42, creatinine 1.4. Ultrasound shows cholelithiasis, without evidence of acute cholecystitis and no ductal dilatation with CBD noted at 4mm. On prior imaging, CT abdomen/pelvis
from 01/22/24 showed normal pancreas, but was limited due to no IV contrast. She has never had pancreatitis before. She does report a history of gallstones. She denies alcohol use. No recent new medications and she denies recent injury or trauma.
Medical history is significant for CVA 08/2023 with residual R hemiparesis (on Plavix), s/p PEG tube, HTN, CKD-3, RA, COPD, hypothyroidism, cervical cancer (s/p hysterectomy, chemo, radiation), radiation colitis requiring colectomy with ileostomy
done at [facility] in 2016, CAD, NIDDM, parotid mass, RACHEL (on CPAP), depression, anxiety, and peripheral neuropathy. She is known to our GI practice and was previously a patient of Dr. Perez's. Endoscopy in 2018 showed LA Grade C esophagitis. She
takes pantoprazole 20mg once a day and denies heartburn, reflux. She also notes that she stopped using the PEG tube about 3 months ago and has been tolerating food and liquids by mouth. No family history of any GI malignancies.
01/31/24 Obstruction series: NEGATIVE
01/31/24 CT abd/pelvis:
1. MILD RIGHT HYDRONEPHROSIS which has increased since 01/22/2024 and could be secondary to ascending right urinary tract infection and acute right pyelonephritis. No CT evidence for obstructing right ureteral calculus.
2. Moderate to severe chronic left renal disease and innumerable nonobstructing left intrarenal calculi.
3. Previous subtotal colectomy and left anterior abdominal wall ileostomy.
4. Mild splenomegaly.
5. MODERATE RIGHT LOWER LOBE ASPIRATION PNEUMONIA.
6. Very severe discogenic degenerative disease at L3/L4 and L4/L5.
IMPRESSION / PLAN:
- Elevated lipase level but no evidence of pancreatitis noted on CT or ultrasound, pancreatic atrophy noted. she does have gallstones currently asymptomatic from it but if she does develop symptoms of biliary colic will need eventual cholecystectomy.
- Most likely had ileus, obstruction series and CT were negative for bowel obstruction. She does have adequate colostomy output.
- since the CT showed aspiration pneumonia had reevaluation with speech and cleared for pureed diet
-Can resume PEG tube feeds as needed
-History of esophagitis on PPI twice daily
-Labs with new thrombocytopenia most likely related to medications possibly from Zosyn or PPI or heparin SC, will DC home Protonix and switch to Pepcid
-Will s/o and will be available as needed
Subjective
Subjective
Date of Service: February 03, 2024
She does have adequate colostomy output, no nausea vomiting but she has been n.p.o. She was restarted on pur�ed diet today after being evaluated again by speech.
Objective
Data Reviewed
Laboratory Data:
Laboratory Results
02/03/24 05:52
02/03/24 05:52
Laboratory Results
Magnesium 1.3 mg/dl (1.6-2.3) L 02/03/24 05:52
Total Bilirubin 0.2 mg/dl (0.2-1.3) 02/03/24 05:52
AST 16 U/L (14-36) 02/03/24 05:52
ALT < 10 U/L (0-35) 02/03/24 05:52
Alkaline Phosphatase 67 U/L (38-126) 02/03/24 05:52
Lipase 1711 U/L (23-300) H* 02/03/24 05:52
Vital Signs and I&O:
Vital Signs
Temp Pulse Resp BP Pulse Ox
99.8 F 54 18 160/89 99
02/03/24 07:56 02/03/24 07:56 02/03/24 07:56 02/03/24 07:56 02/03/24 07:56
I&O
02/02/24 02/03/24 02/04/24
06:59 06:59 06:59
Intake Total 1480 / 1480 1640 / 1640
Output Total 250 / 250 800 / 800
Balance 1480 / 1480 -250 / -250 840 / 840
Physical Exam
Physical Exam
Cardiology: Normal Sinus Rhythm
Pulmonary: Clear
GI: Soft, Non Distended, Non Tender, Normal Bowel Sounds and Other (colostomy with liquid stool)
--- NOTE | 2024-02-03 10:32 | PTOTSP ---
SPEECH THERAPY SWALLOW EVALUATION:
Clinical signs of oropharyngeal dysphagia, likely chronic related to history of hemiglossectomy, CVA x2 with history of dysphagia/aspiration pneumonia, and now acutely exacerbated by aspiration pneumonia. Patient had prior VSE 6 days ago and was
recommended for Regular texture diet and Mildly-thick liquids, with Right head turn and chin tuck for all swallows, along with AHRP single sips of water between meals. Now admitted with aspiration pneumonia. Pt admitted that she has been drinking
thin liquid soda/juice at home. Extensive education provided to patient regarding risk for aspiration/related complications with thin liquids. Pt implemented safe swallow strategies during 100% of p.o. trials at this evaluation, though unclear if pt
implementing these strategies 100% of the time during all eating/drinking. Recommend IDDSI Level 6 Soft and Bite size diet and Mildly-thick liquids at this time. Medicaitons whole in puree. Strict aspiration precautions includin% supervision
to ensure use of strategies; Upright positioning; Small single sips; NO STRAW; slow rate; RIGHT head turn and CHIN TUCK for all swallows; Alternate textures. Discontinue oral diet should pt exhibit signs of aspiration or decline in mental or
respiratory status. Recommending holding on ARHP at this time given pt with inconsistent following of recommendations prior to this admission with aspiration pneumonia. Speech therapy to follow, assess diet tolerance and modify as appropriate,
monitor CXR and labs, determine readiness for ARHP protocol, and provide continued extensive education regarding aspiration risks/precautions and safe swallow strategies.
RECOMMEND:
1) IDDSI Level 6 Soft and Bite size diet and Mildly-thick liquids
2) Medicaitons whole in puree
3) Strict aspiration precautions includin% supervision to ensure use of strategies; Upright positioning; Small single sips; NO STRAW; slow rate; RIGHT head turn and CHIN TUCK for all swallows; Alternate textures. Discontinue oral diet should
pt exhibit signs of aspiration or decline in mental or respiratory status
4) Recommending holding on ARHP at this time
5) Speech therapy to follow, assess diet tolerance and modify as appropriate, monitor CXR and labs, determine readiness for ARHP protocol, and provide continued extensive education regarding aspiration risks/precautions and safe swallow strategies.
[2024-02-03 11:46] VITALS: BP 146/90
--- NOTE | 2024-02-03 13:38 | PTCARENOTE ---
OK to remove Pt from tele per Dr. Queen.
--- NOTE | 2024-02-03 13:43 | W.PN.HOSP.TC ---
Today's Communication/Plan
-
pt refusing tube feeds
has diet
cont abx
add cough med
Assessment / Plan
Assessment / Plan
pt is a 58 year old female
acute Pancreatitis--likely with ileus--speech eval--GI said OK for tube feeds--pt does not want--soft and bite sized diet ordered
Recent SBO- Ostomy now with significant stool output - doubt recurrence.
ASCVD- Significant history of CVA, PAD, etc.- Continue ASA for now. Resume other meds once tolerating significant POs.
CKD III- Stable. Renal function is at / near known baseline.
Chronic Aspiration / Dysphagia-- Speech eval during recent admission with laryngeal penetration noted - Thick liquids recommended. See prior Speech recs - Continue liquid / diet modification once PO intake restarted.
Hypothyroidism- Continue T4 supplementation- Update TFTs.
Chronic Pain / Fibromyalgia- Stable. Resume usual pain controlling meds once able to take PO- IV narcotic for acute pain / pancreatitis / etc.
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
Peripheral Neuropathy secondary to chemotherapy
Dysarthria s/p Partial Glossectomy
Diet-Controlled DM-II--Stable. No acute issues. - Follow for any changes.
DVT Prophylaxis: Heparin Subcut
Code Status: DNR
Anticipated Discharge: 24 - 48 hours
Subjective/Interval History
-
Date of Service: February 03, 2024
pt does have a diet--getting IV Dilaudid every 4 hours despite prn order....
Objective Data
-
Labs:
Laboratory Results
02/03/24
05:52
WBC 3.3 L
Hgb 8.2 L
Hct 25.1 L
Plt Count 80 L D
Sodium 137
Potassium 3.6
Chloride 107
Carbon Dioxide 26
BUN 24 H
Creatinine 1.6 H
Glucose 87
Calcium 9.3
Total Bilirubin 0.2
AST 16
ALT < 10
Alkaline Phosphatase 67
Vital Signs:
max temp for 24 hours
02/02/24
22:24
Temp 100.2 F
Vital Signs
Temp Pulse Resp BP Pulse Ox
99.2 F 77 18 146/90 96
02/03/24 11:46 02/03/24 11:46 02/03/24 11:46 02/03/24 11:46 02/03/24 11:46
I&O
02/02/24 02/03/24 02/04/24
06:59 06:59 06:59
Intake Total 1480 / 1480 1500 / 1500 1640 / 1640
Output Total 250 / 250 800 / 800
Balance 1480 / 1480 1250 / 1250 840 / 840
Review of Systems
-
All other systems: Reviewed and negative
Abdomen/GI: Reports Abdominal Pain
Physical Exam
-
General: Well Developed, Well Nourished and No Apparent Distress
HEENT: Normocephalic and Atraumatic
Respiratory: Clear to Auscultation; Negative Wheezes or Rhonchi
Cardiac: Regular Rhythm and S1/S2; Negative Murmur
GI: Soft, Nondistended, Normal Bowel Sounds and Tender
Musculoskeletal: No Clubbing, No Cyanosis and No Edema
[2024-02-03 13:50] VITALS: BMI 27.6
[2024-02-03] MEDS: ROBITUSSIN DM 5 ML PO (14:14)
--- NOTE | 2024-02-03 14:56 | PTCARENOTE ---
Pt requesting IV Dilaudid Q4 PRN for 8/10 ABD pain. Pt Lipase continues to be elevated. Dr. Queen advised. Dilaudid order changed to Q6 PRN. Pt advised.
[2024-02-03 15:14] VITALS: BP 100/57
[2024-02-03 17:18] LABS: Glucose - Point of Care 161 mg/dl (70-99)
[2024-02-03] MEDS: NOVOLOG FLEXPEN-LOW RESISTANCE 1 UNITS SC (18:23)
[2024-02-03] MEDS: TYLENOL 650 MG PO (18:23)
[2024-02-03] MEDS: PEPCID 20 MG PO (20:20)
[2024-02-03 21:17] LABS: Glucose - Point of Care 115 mg/dl (70-99)
[2024-02-03 23:00] VITALS: BP 99/60
[2024-02-04] MEDS: TYLENOL 650 MG PO (00:08)
[2024-02-04] MEDS: LR 1000 IV ×3 (00:10→20:15)
[2024-02-04] MEDS: DILAUDID 0.5 MG IV ×4 (02:35→21:12)
[2024-02-04] MEDS: ZOSYN 50 IV ×4 (03:09→21:12)
[2024-02-04 05:19] LABS: Hematocrit 24.3 % (37.0-47.0); Hemoglobin 7.7 g/dL (12.0-16.0); Mean Corp Hgb Conc. 31.7 g/dL (33.0-37.0); Mean Corpuscular Hgb 30.4 pg (27.0-31.0); Mean Platelet Volume 9.7 fL (7.4-10.4); Platelet Count 81 10^3/uL (130-400); Red Blood Cell Count 2.53 10^6/uL (4.20-5.40); Red Cell Dist. Width 13.5 % (11.5-14.5); White Blood Cell Count 4.5 10^3/uL (4.8-10.8)
[2024-02-04] MEDS: SYNTHROID 50 MCG PO (05:42)
[2024-02-04 05:57] LABS: ALT (SGPT) < 10 U/L (0-35); AST (SGOT) 15 U/L (14-36); Albumin 2.8 g/dl (3.5-5.0); Alkaline Phosphatase 59 U/L (38-126); Blood Urea Nitrogen 22 mg/dl (7-17); Calcium 8.6 mg/dl (8.4-10.2); Carbon Dioxide 28 mmol/L (22-30); Chloride 105 mmol/L (98-107); Estimated Creatinine Clearance 36 ml/min; Glucose 88 mg/dl (70-99); Lipase 1960 U/L (23-300); Magnesium 1.1 mg/dl (1.6-2.3); Potassium 3.5 mmol/L (3.5-5.1); Sodium 136 mmol/L (135-145); Total Bilirubin 0.3 mg/dl (0.2-1.3); Total Protein 6.1 g/dl (6.3-8.2); eGFR 34.55
[2024-02-04 07:11] LABS: Glucose - Point of Care 78 mg/dl (70-99)
[2024-02-04 07:25] VITALS: BP 119/81
[2024-02-04] MEDS: NOVOLOG FLEXPEN-LOW RESISTANCE SC ×3 (07:40→18:30)
[2024-02-04] MEDS: PEPCID 20 MG PO (08:51)
[2024-02-04] MEDS: LOW STRENGTH ASPIRIN 81 MG PO (08:51)
[2024-02-04] MEDS: HEPARIN 5000 UNITS SC ×2 (08:52→20:13)
[2024-02-04] MEDS: NSS (PRESERVATIVE FREE) IV (08:52)
[2024-02-04] MEDS: ROBITUSSIN DM 5 ML PO (09:19)
--- NOTE | 2024-02-04 11:30 | WOUNDNOTE ---
WON RN NOTE: Asked to see patient by nurse Lala for ostomy needs, ileostomy leaking. Patient known to service for frequent admissions to hospital. Patient states she is now at [facility] for rehab and is able to get oob with assist to
wheelchair daily. Patient confirms that she has an air mattress at facility and cushion for Wheelchair. Sacrum and heels blanchable red, applied foam adhesives to heels to protect and pillow under calves. Scattered abrasions on buttocks, patient
confirms she scratches. Patient has a Peg tube but states feedings have stopped, she is eating thickened food on her own, appetite is good. L sided Ileostomy leaking laterally at 3-4 O'clock, periwound slightly red and irritated. Patient states she
only started leaking today and has had same pouch since admitted on 01/29. Wear time was 5 days before leakage. Did not bring in current supplies, states she uses high output pouches and convex wafer still. Stoma pink approximately 1 1/4' oval and
slightly budded. Today applied stoma powder then skin prep to pink areas surrounding stoma. Angélica seal around stoma, cut to fit Rumford 2 1/4' convex wafer #[id number] and high output pouch #[id number] attached to straight bag drainage system # [id number].
Recommend change q 3-4 days and prn leakage. Second set of supplies at bedside. Patient also incontinent of large amt of urine on Ultrasorb pad and brief. Asked nurse Karen who assisted with turning, to apply Purwick to contain urine and not to use
ties on brief. Applied air overlay to bed, patient states her back is sore. When asked patient if she has been oob to chair, she states no. Nursing reports patient refusing to get oob. Encouraged patient to get oob daily with assistance when staff
asking her to, she states she will. Repositioned patient onto L semi lying position, nurse will obtain pump to inflate overlay. Updated nurse and patient on ostomy care.
[2024-02-04 12:28] LABS: Glucose - Point of Care 84 mg/dl (70-99)
--- NOTE | 2024-02-04 14:07 | CM ---
manager call center reviewed patient's chart and met with patient and patient to return to [facility] when stable, telephonic case manager faxed over referral through [employer]. Patient requires total care at alf.
[facility]
Report [phone]

Plan; To return to [facility] when stable.
[2024-02-04 17:30] VITALS: BP 141/88
[2024-02-04] MEDS: NEURONTIN 100 MG PO (17:35)
[2024-02-04] MEDS: SODIUM BICARBONATE 650 MG PO ×2 (17:35→23:14)
[2024-02-04 17:55] LABS: Glucose - Point of Care 147 mg/dl (70-99)
--- NOTE | 2024-02-04 18:35 | PTCARENOTE ---
Pt request her home med gabapentin be ordered. TT to Dr. Queen. Order rec'd and given.
[2024-02-04] MEDS: EFFEXOR 100 MG PO (20:13)
[2024-02-04] MEDS: BUSPAR 5 MG PO (20:13)
[2024-02-04] MEDS: LAC HYDRIN, AM LACTIN LOTION 1 APPLIC TOPICAL (20:14)
[2024-02-04] MEDS: NEURONTIN 300 MG PO (21:11)
[2024-02-04 21:39] LABS: Glucose - Point of Care 167 mg/dl (70-99)
[2024-02-04 23:41] VITALS: BP 121/66
[2024-02-05 04:50] LABS: Hematocrit 23.7 % (37.0-47.0); Hemoglobin 7.7 g/dL (12.0-16.0); Mean Corp Hgb Conc. 32.5 g/dL (33.0-37.0); Mean Corpuscular Hgb 30.3 pg (27.0-31.0); Mean Corpuscular Volume 93.3 fL (81.0-99.0); Mean Platelet Volume 9.1 fL (7.4-10.4); Platelet Count 80 10^3/uL (130-400); Red Blood Cell Count 2.54 10^6/uL (4.20-5.40); Red Cell Dist. Width 13.5 % (11.5-14.5); White Blood Cell Count 4.2 10^3/uL (4.8-10.8)
[2024-02-05 04:52] VITALS: BMI 28.5
[2024-02-05] MEDS: ZOSYN 50 IV ×2 (05:15→08:48)
[2024-02-05] MEDS: LR 1000 IV ×2 (05:15→16:18)
[2024-02-05 05:44] LABS: ALT (SGPT) < 10 U/L (0-35); AST (SGOT) 14 U/L (14-36); Albumin 2.9 g/dl (3.5-5.0); Alkaline Phosphatase 59 U/L (38-126); Blood Urea Nitrogen 23 mg/dl (7-17); Calcium 8.6 mg/dl (8.4-10.2); Carbon Dioxide 27 mmol/L (22-30); Chloride 108 mmol/L (98-107); Estimated Creatinine Clearance 44 ml/min; Glucose 97 mg/dl (70-99); Magnesium 1.1 mg/dl (1.6-2.3); Potassium 3.8 mmol/L (3.5-5.1); Sodium 138 mmol/L (135-145); Total Bilirubin 0.1 mg/dl (0.2-1.3); Total Protein 6.2 g/dl (6.3-8.2); eGFR 37.15
[2024-02-05 05:54] LABS: Lipase 2038 U/L (23-300)
[2024-02-05 07:15] LABS: Glucose - Point of Care 119 mg/dl (70-99)
--- NOTE | 2024-02-05 07:21 | W.PN.HOSP.TC ---
Today's Communication/Plan
-
d/c planning
tolerating diet
Assessment / Plan
Assessment / Plan
pt is a 58 year old female
acute Pancreatitis--likely with ileus--speech eval--GI said OK for tube feeds--pt does not want--soft and bite sized diet ordered--lipase continues to increase--await GI input
Recent SBO- Ostomy now with significant stool output - doubt recurrence.
ASCVD- Significant history of CVA, PAD, etc.- Continue ASA for now. Resume other meds once tolerating significant POs.
CKD III- Stable. Renal function is at / near known baseline.
Chronic Aspiration/Dysphagia with PNA noted on CT scan-- Speech eval during recent admission with laryngeal penetration noted - Thick liquids recommended. See prior Speech recs - Continue liquid / diet modification once PO intake restarted--cont ABX
Hypothyroidism- Continue T4 supplementation- Update TFTs.
Chronic Pain / Fibromyalgia- Stable. Resume usual pain controlling meds once able to take PO- IV narcotic for acute pain / pancreatitis / etc.
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
Peripheral Neuropathy secondary to chemotherapy
Dysarthria s/p Partial Glossectomy
Diet-Controlled DM-II--Stable. No acute issues. - Follow for any changes.
DVT Prophylaxis: Heparin Subcut
Code Status: DNR
Anticipated Discharge: 24 - 48 hours
Subjective/Interval History
-
Date of Service: February 04, 2024
I did see the patient on February 04, 2024--this is a late entry
Objective Data
-
Labs:
Laboratory Results
02/05/24
04:37
WBC 4.2 L
Hgb 7.7 L
Hct 23.7 L
Plt Count 80 L
Sodium 138
Potassium 3.8
Chloride 108 H
Carbon Dioxide 27
BUN 23 H
Creatinine 1.6 H
Glucose 97
Calcium 8.6
Total Bilirubin 0.1 L
AST 14
ALT < 10
Alkaline Phosphatase 59
Vital Signs:
max temp for 24 hours
02/04/24
07:25
Temp 98.1 F
Vital Signs
Temp Pulse Resp BP Pulse Ox
98.1 F 63 20 121/66 99
02/04/24 23:41 02/04/24 23:41 02/04/24 23:41 02/04/24 23:41 02/04/24 23:41
I&O
02/04/24 02/05/24 02/06/24
06:59 06:59 06:59
Intake Total 5440 / 5440 3260 / 3260
Output Total 1100 / 1100 750 / 750
Balance 4340 / 4340 2510 / 2510
Review of Systems
-
All other systems: Reviewed and negative
Abdomen/GI: Reports Abdominal Pain
Physical Exam
-
General: Appears Chronically Ill
HEENT: Normocephalic and Atraumatic
Respiratory: Clear to Auscultation; Negative Wheezes or Rhonchi
Cardiac: Regular Rhythm and S1/S2; Negative Murmur
GI: Soft, Nondistended, Normal Bowel Sounds and Tender
Musculoskeletal: No Clubbing, No Cyanosis and No Edema
Neuro: Awake and Alert
Psych: Calm
[2024-02-05] MEDS: NOVOLOG FLEXPEN-LOW RESISTANCE SC ×2 (07:52→17:38)
[2024-02-05 07:59] VITALS: BP 176/114
[2024-02-05] MEDS: DILAUDID 0.5 MG IV ×3 (08:30→22:34)
[2024-02-05] MEDS: LAC HYDRIN, AM LACTIN LOTION 1 APPLIC TOPICAL ×2 (08:44→21:15)
[2024-02-05] MEDS: LR IV (08:45)
[2024-02-05] MEDS: SODIUM BICARBONATE 650 MG PO ×2 (08:45→16:18)
[2024-02-05] MEDS: SYNTHROID 50 MCG PO (08:45)
[2024-02-05] MEDS: NEURONTIN 100 MG PO (08:45)
[2024-02-05] MEDS: LOW STRENGTH ASPIRIN 81 MG PO (08:45)
[2024-02-05] MEDS: VITAMIN D3 (cholecalciferol) 50 MCG PO (08:45)
[2024-02-05] MEDS: HEPARIN 5000 UNITS SC ×2 (08:46→21:15)
[2024-02-05] MEDS: BUSPAR 5 MG PO ×2 (08:46→21:15)
[2024-02-05] MEDS: EFFEXOR 100 MG PO ×2 (08:46→21:15)
[2024-02-05] MEDS: ROBITUSSIN DM 5 ML PO (08:46)
[2024-02-05] MEDS: PEPCID 20 MG PO (08:46)
[2024-02-05 09:00] VITALS: BP 135/88
--- NOTE | 2024-02-05 09:52 | PN.CDI ---
CDI
- -
CDI:
Physician Documentation Request
Admit Date: 01/30/24 21:49
Dear Doctor Bernice,
Patient admitted for acute pancreatitis.
Laboratory Tests
02/03/24 02/04/24 02/05/24
05:52 04:38 04:37
WBC 3.3 L 4.5 L 4.2 L
RBC 2.67 L 2.53 L 2.54 L
Hgb 8.2 L 7.7 L 7.7 L
Plt Count 80 L D 81 L 80 L
Based on the above, could you clarify in the progress notes, the appropriate diagnosis, if significant, that supports the above abnormalities and additional evaluation, monitoring and/or treatment rendered:
Pancytopenia
Abnormal lab value insignificant
Other
Use of terms such as suspected, likely, concern for, or probable (associated with a specific diagnosis that is being evaluated, monitored, or treated as if it exists) are acceptable and can be coded in the inpatient setting, when documented at the
time of discharge.
Thank you,
Kerline Yee RN, BSN
CDI Specialist
Available via [place] text
Please use your independent medical judgment in providing your response.
--- NOTE | 2024-02-05 10:35 | W.PN.GI.CBS2 ---
Addendum entered and electronically signed by Adan Gutierrez MD 02/05/24 17:41:
I saw and examined the patient.
The PA's note was reviewed and I agree with the note.
Comment:
Called back to see for abdominal pain and elevated lipase; agree that her elevated lipase is unlikely from acute pancreatitis as her pain is chronic (started few months ago) without significant worsening. She was recently admitted for ? partial SBO
vs ileus which may explain her elevated lipase. CT of abd with IV contrast from 01/30 did not show inflammatory changes in panc except for atrophy. Agree with preventative measures for aspiration. GI will s/o, pls call with questions.
Original Note:
Today's Communication / Plan
-
Etiology of elevated lipase related to chronic low grade obstructive process vs other
CT 01/30 with mild pancreatic atrophy no signs of pancreatitis-- pt pain is chronic for months and denies post prandial pain
currently tolerating diet and good ostomy output -- she reports vomiting last PM but not report per nursing -- close monitoring for any recurrent vomiting
if any recurrent issue with vomiting would repeat CT as most recent CT with increased hydro if not vomiting continue diet
diet per speech with risk for aspiration with need for strict aspiration precautions --- Upright positioning, Small single sips; NO STRAW; slow rate; RIGHT head turn and CHIN TUCK for all swallows; Alternate textures. Discontinue oral diet should
pt exhibit signs of aspiration or decline in mental or respiratory status
currently with peg but taking oral diet-- continue to monitor for aspiration prior to considering removal
cont Pepcid daily
Assessment / Plan
-
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
at [facility] in 2016, CAD, NIDDM, parotid mass, RACHEL (on CPAP), depression, anxiety, and peripheral neuropathy. She was just admitted here at from 01/22 to 01/28 for partial small bowel obstruction vs ileus as well as pneumonia, discharged to nursing
home, who returns to the hospital c/o new-onset periumbilical and epigastric abdominal pain with nausea and vomiting. No fever, chills. Labs in the ER showed significantly elevated lipase at 2296. LFTs normal, WBC count 9.3, Hgb 9.0 (which is around
her baseline), normocytic indices, platelets 130, BUN 42, creatinine 1.4. Ultrasound shows cholelithiasis, without evidence of acute cholecystitis and no ductal dilatation with CBD noted at 4mm. On prior imaging, CT abdomen/pelvis from 01/22/24 showed
normal pancreas, but was limited due to no IV contrast. She has never had pancreatitis before. She does report a history of gallstones. She denies alcohol use. No recent new medications and she denies recent injury or trauma. Endoscopy in 2018
showed LA Grade C esophagitis. She takes pantoprazole 20mg once a day and denies heartburn, reflux. She also notes that she stopped using the PEG tube about 3 months ago and has been tolerating food and liquids by mouth. No family history of any GI
malignancies.
01/31/24 Obstruction series: NEGATIVE
01/31/24 CT abd/pelvis:
1. MILD RIGHT HYDRONEPHROSIS which has increased since 01/22/2024 and could be secondary to ascending right urinary tract infection and acute right pyelonephritis. No CT evidence for obstructing right ureteral calculus.
2. Moderate to severe chronic left renal disease and innumerable nonobstructing left intrarenal calculi.
3. Previous subtotal colectomy and left anterior abdominal wall ileostomy.
4. Mild splenomegaly.
5. MODERATE RIGHT LOWER LOBE ASPIRATION PNEUMONIA.
6. Very severe discogenic degenerative disease at L3/L4 and L4/L5.
7. mild pancreatic atrophy
01/31/24 obst series with chest
No active cardiopulmonary disease.
No evidence of acute abdominal pathology.
01/31/24 US Abdomen Complete/Upper*
1). Cholelithiasis
2).There are small nonobstructing left-sided renal calculi measuring up to 4.5 mm
-elevated lipase
-chronic mid abdominal pain for months
-intermittent vomiting
-CT 01/30 with mild right hydro with increase 01/29 urine mixed ghanshyam
-recent small bowel obstruction vs ileus early January
-wt loss
-chronic aspiration with right LL aspiration PNA on imaging
-cholelithiasis
other medical problems:
-hx cervical CA with hysterectomy/radiation
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
-CVA 08/2023 on Plavix with right hemiparesis
-hypothyroidism
-NIDDM
-CAD
-CKD
-sleep apnea
-fibromyalgia
-tobacco
-neuropathy
IMPRESSION / PLAN:
Etiology of elevated lipase related to chronic low grade obstructive process vs other
CT 01/30 with mild pancreatic atrophy no signs of pancreatitis-- pt pain is chronic for months and denies post prandial pain
currently tolerating diet and good ostomy output -- she reports vomiting last PM but not report per nursing -- close monitoring for any recurrent vomiting
if any recurrent issue with vomiting would repeat CT as most recent CT with increased hydro if not vomiting continue diet
diet per speech with risk for aspiration with need for strict aspiration precautions --- Upright positioning, Small single sips; NO STRAW; slow rate; RIGHT head turn and CHIN TUCK for all swallows; Alternate textures. Discontinue oral diet should
pt exhibit signs of aspiration or decline in mental or respiratory status
currently with peg but taking oral diet-- continue to monitor for aspiration prior to considering removal
cont Pepcid daily
Subjective
Subjective
Date of Service: February 05, 2024
IDDS 6 diet, 02/03 brown stool pt reports vomiting last per not noted per staff
Objective
Data Reviewed
Laboratory Data:
Laboratory Results
02/05/24 04:37
02/05/24 04:37
Laboratory Results
Magnesium 1.1 mg/dl (1.6-2.3) L 02/05/24 04:37
Total Bilirubin 0.1 mg/dl (0.2-1.3) L 02/05/24 04:37
AST 14 U/L (14-36) 02/05/24 04:37
ALT < 10 U/L (0-35) 02/05/24 04:37
Alkaline Phosphatase 59 U/L (38-126) 02/05/24 04:37
Lipase 2038 U/L (23-300) H* 02/05/24 04:37
Vital Signs and I&O:
Vital Signs
Temp Pulse Resp BP Pulse Ox
98.4 F 71 18 176/114 98
02/05/24 07:59 02/05/24 07:59 02/05/24 07:59 02/05/24 07:59 02/05/24 07:59
I&O
02/04/24 02/05/24 02/06/24
06:59 06:59 06:59
Intake Total 5440 / 5440 3260 / 3260
Output Total 1100 / 1100 750 / 750
Balance 4340 / 4340 2510 / 2510
Physical Exam
Physical Exam
HEENT: Anicteric and Moist mucous membranes
Cardiology: Normal Sinus Rhythm
Pulmonary: Clear
GI: Soft, Non Distended, Tender (mid abdomen ) and Other (multiple abdominal scar, peg intact in place at 4 at skin, ileostomy with good drainage to collection bag )
Extremities: No Edema
Neuro: Non Focal
[2024-02-05 11:37] LABS: Glucose - Point of Care 164 mg/dl (70-99)
[2024-02-05] MEDS: NORCO 5/325 1 TABLET PO ×2 (12:13→21:14)
[2024-02-05] MEDS: NOVOLOG FLEXPEN-LOW RESISTANCE 1 UNITS SC (12:55)
--- NOTE | 2024-02-05 14:15 | W.PN.HOSP.TC ---
Today's Communication/Plan
-
anticipate d/c to SNF in AM if remains stable
Assessment / Plan
Assessment / Plan
pt is a 58 year old female
acute Pancreatitis--likely with ileus--speech eval--GI said OK for tube feeds--pt does not want--soft and bite sized diet ordered--lipase continues to increase--apprec GI input
Recent SBO- Ostomy now with significant stool output - doubt recurrence.
ASCVD- Significant history of CVA, PAD, etc.- Continue ASA for now. Resume other meds once tolerating significant POs.
CKD III- Stable. Renal function is at / near known baseline.
Chronic Aspiration/Dysphagia with PNA noted on CT scan-- Speech eval during recent admission with laryngeal penetration noted - Thick liquids recommended. See prior Speech recs - Continue liquid / diet modification once PO intake restarted--cont ABX
Hypothyroidism- Continue T4 supplementation- Update TFTs.
Chronic Pain / Fibromyalgia- Stable. Resume usual pain controlling meds once able to take PO- IV narcotic for acute pain / pancreatitis / etc.
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
Peripheral Neuropathy secondary to chemotherapy for cervical cancer
Dysarthria s/p Partial Glossectomy
pancytopenia possibly from infection
Diet-Controlled DM-II--Stable. No acute issues. - Follow for any changes.
DVT Prophylaxis: Heparin Subcut
Code Status: DNR
Anticipated Discharge: Within 24 hours
Subjective/Interval History
-
Date of Service: February 05, 2024
pt tolerating diet despite saying she has pain--she has no objections to d/c tomorrow
Objective Data
-
Labs:
Laboratory Results
02/05/24
04:37
WBC 4.2 L
Hgb 7.7 L
Hct 23.7 L
Plt Count 80 L
Sodium 138
Potassium 3.8
Chloride 108 H
Carbon Dioxide 27
BUN 23 H
Creatinine 1.6 H
Glucose 97
Calcium 8.6
Total Bilirubin 0.1 L
AST 14
ALT < 10
Alkaline Phosphatase 59
Vital Signs:
max temp for 24 hours
02/04/24
07:25
Temp 98.1 F
Vital Signs
Temp Pulse Resp BP Pulse Ox
98.4 F 71 18 135/88 98
02/05/24 07:59 02/05/24 07:59 02/05/24 07:59 02/05/24 09:00 02/05/24 07:59
I&O
02/04/24 02/05/24 02/06/24
06:59 06:59 06:59
Intake Total 5440 / 5440 3260 / 3260
Output Total 1100 / 1100 750 / 750
Balance 4340 / 4340 2510 / 2510
Review of Systems
-
All other systems: Reviewed and negative
Abdomen/GI: Reports Abdominal Pain
Physical Exam
-
General: Well Developed, Well Nourished, No Apparent Distress and Appears Chronically Ill
HEENT: Normocephalic and Atraumatic
Respiratory: Clear to Auscultation; Negative Wheezes or Rhonchi
Cardiac: Regular Rhythm and S1/S2; Negative Murmur
GI: Soft, Nontender, Nondistended and Normal Bowel Sounds
Musculoskeletal: No Clubbing, No Cyanosis and No Edema
Neuro: Awake
Psych: Calm
[2024-02-05 15:30] VITALS: BP 157/92
--- NOTE | 2024-02-05 16:03 | CM ---
[patient to return to [facility] tomorrow.
[facility]
Report [phone]
[2024-02-05 16:46] LABS: Glucose - Point of Care 89 mg/dl (70-99)
--- NOTE | 2024-02-05 17:41 | W.PN.UPDATE ---
Update Note
Progress Note Update
billing note
[2024-02-05] MEDS: KEFLEX 500 MG PO (21:15)
[2024-02-05] MEDS: NEURONTIN 300 MG PO (21:15)
[2024-02-05 22:11] LABS: Glucose - Point of Care 90 mg/dl (70-99)
[2024-02-05 22:55] VITALS: BP 159/93
[2024-02-06] MEDS: SODIUM BICARBONATE 650 MG PO ×3 (01:32→15:30)
[2024-02-06] MEDS: NEURONTIN 100 MG PO (01:41)
[2024-02-06 05:25] LABS: Hematocrit 26.2 % (37.0-47.0); Hemoglobin 8.5 g/dL (12.0-16.0); Mean Corp Hgb Conc. 32.4 g/dL (33.0-37.0); Mean Corpuscular Hgb 30.1 pg (27.0-31.0); Mean Corpuscular Volume 92.9 fL (81.0-99.0); Mean Platelet Volume 9.3 fL (7.4-10.4); Platelet Count 86 10^3/uL (130-400); Red Blood Cell Count 2.82 10^6/uL (4.20-5.40); Red Cell Dist. Width 13.3 % (11.5-14.5); White Blood Cell Count 3.5 10^3/uL (4.8-10.8)
[2024-02-06] MEDS: DILAUDID 0.5 MG IV ×2 (05:32→11:43)
[2024-02-06] MEDS: SYNTHROID 50 MCG PO (05:32)
[2024-02-06 05:54] LABS: Blood Urea Nitrogen 20 mg/dl (7-17); Calcium 8.9 mg/dl (8.4-10.2); Carbon Dioxide 26 mmol/L (22-30); Chloride 106 mmol/L (98-107); Estimated Creatinine Clearance 47 ml/min; Glucose 79 mg/dl (70-99); Potassium 4.1 mmol/L (3.5-5.1); Sodium 136 mmol/L (135-145); eGFR 40.14
[2024-02-06 06:00] VITALS: BMI 28.5
[2024-02-06 07:37] LABS: Glucose - Point of Care 94 mg/dl (70-99)
[2024-02-06 08:00] VITALS: BP 140/81
[2024-02-06] MEDS: NOVOLOG FLEXPEN-LOW RESISTANCE SC ×2 (08:25→13:01)
[2024-02-06] MEDS: EFFEXOR 100 MG PO (08:26)
[2024-02-06] MEDS: BUSPAR 5 MG PO (08:26)
[2024-02-06] MEDS: HEPARIN 5000 UNITS SC (08:27)
[2024-02-06] MEDS: KEFLEX 500 MG PO (08:30)
[2024-02-06] MEDS: LAC HYDRIN, AM LACTIN LOTION 1 APPLIC TOPICAL (08:32)
[2024-02-06] MEDS: LOW STRENGTH ASPIRIN 81 MG PO (08:32)
[2024-02-06] MEDS: PEPCID 20 MG PO (08:32)
[2024-02-06] MEDS: VITAMIN D3 (cholecalciferol) 50 MCG PO (08:33)
[2024-02-06] MEDS: NORCO 5/325 1 TABLET PO (08:46)
[2024-02-06 11:00] VITALS: BP 138/81
[2024-02-06 12:11] LABS: Glucose - Point of Care 102 mg/dl (70-99)
--- NOTE | 2024-02-06 13:04 | W.PN.HOSP.TC ---
Today's Communication/Plan
-
d/c to SNF
Assessment / Plan
Assessment / Plan
pt is a 58 year old female
acute Pancreatitis--likely with ileus--speech eval--GI said OK for tube feeds--pt does not want--soft and bite sized diet ordered---apprec GI input
Recent SBO- Ostomy now with significant stool output - doubt recurrence.
ASCVD- Significant history of CVA, PAD, etc.- Continue ASA for now. Resume other meds once tolerating significant POs.
CKD III- Stable. Renal function is at / near known baseline.
Chronic Aspiration/Dysphagia with PNA noted on CT scan-- Speech eval during recent admission with laryngeal penetration noted - Thick liquids recommended. See prior Speech recs - Continue liquid / diet modification once PO intake restarted--cont ABX
Hypothyroidism- Continue T4 supplementation- Update TFTs.
Chronic Pain / Fibromyalgia- Stable. Resume usual pain controlling meds once able to take PO- IV narcotic for acute pain / pancreatitis / etc.
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
Peripheral Neuropathy secondary to chemotherapy for cervical cancer
Dysarthria s/p Partial Glossectomy
pancytopenia possibly from infection
Diet-Controlled DM-II--Stable. No acute issues. - Follow for any changes.
DVT Prophylaxis: Heparin Subcut
Code Status: DNR
Anticipated Discharge: Today
Subjective/Interval History
-
Date of Service: February 06, 2024
pt ready for d/c
Objective Data
-
Labs:
Laboratory Results
02/06/24
05:12
WBC 3.5 L
Hgb 8.5 L
Hct 26.2 L
Plt Count 86 L
Sodium 136
Potassium 4.1
Chloride 106
Carbon Dioxide 26
BUN 20 H
Creatinine 1.5 H
Glucose 79
Calcium 8.9
Vital Signs:
max temp for 24 hours
02/05/24
15:30
Temp 97.8 F
Vital Signs
Temp Pulse Resp BP Pulse Ox
97.5 F 66 20 138/81 97
02/06/24 08:00 02/06/24 11:00 02/06/24 11:00 02/06/24 11:00 02/06/24 11:00
I&O
02/05/24 02/06/24 02/07/24
06:59 06:59 06:59
Intake Total 3260 / 3260 2150 / 2150
Output Total 750 / 750 2200 / 2200
Balance 2510 / 2510 -50 / -50
Review of Systems
-
All other systems: Reviewed and negative
Physical Exam
-
General: Appears Chronically Ill
HEENT: Normocephalic and Atraumatic
Respiratory: Clear to Auscultation; Negative Wheezes or Rhonchi
Cardiac: Regular Rhythm and S1/S2; Negative Murmur
GI: Soft, Nontender, Nondistended and Normal Bowel Sounds
Musculoskeletal: No Clubbing, No Cyanosis, No Edema and Other (missing toes on bilateral feet)
Neuro: Other (right hemiplegia)
--- NOTE | 2024-02-06 14:00 | WOUNDNOTE ---
[facility] RN Note: Patient's ileostomy appliance is intact and connected to bedside drainage. Effluent loose brown. RN Brenda stated nursing had to change it last night d/t leakage. Patient stated she has ostomy supplies at SNF. She is being picked up
around 1500 to go back to SNF. Skin on heels intact. RN student Marbella stated patient's sacral skin is intact.
--- NOTE | 2024-02-06 14:24 | CM ---
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
Plan; Patient to transfer to [facility] today at 3pm, patient's mother was made aware of discharge, patient's spouse's mail box is full.
[2024-02-06 15:06] VITALS: BP 138/81
--- NOTE | 2024-02-07 07:49 | W.DCSUMMARY ---
Discharge Summary
Discharge Data
Date of Admission: 01/30/24
Date of Discharge: 02/06/24
-
Pending Results: No
Hospital Course
Primary care physician : Michael Vargas
Principal Discharge diagnosis : Elevated lipase with chronic abdominal pain consistent with acute pancreatitis, chronic aspiration with dysphagia along with pneumonia noted on CAT scan
Chronic Discharge diagnosis : Recent small bowel obstruction, atherosclerotic cardiovascular disease, chronic kidney disease stage III, hypothyroidism, chronic pain with fibromyalgia, right hemiparesis as a late effect of a previous stroke,
peripheral neuropathy secondary to chemotherapy for her cervical cancer, dysarthria status post partial glossectomy, pancytopenia, type 2 diabetes mellitus
Hospital Course : Patient was a 58y F with PMH significant for R hemiparesis s/p prior CVA, ileostomy, CKD III, hypertension and hypothyroidism who presented to ED from local [place] complaining of abdominal pain with N/V. Patient was recently
hospitalized at for similar symptoms from 01/22 - 01/28. She was treated for SBO and possible aspiration pneumonia and was discharged back to the [place]. Patient states that she did have an episode of N/V the day prior to discharge. On the day of
admission, she noted pain in the epigastric/RUQ region and had additional episodes of non-bloody, bilious emesis prompting return to the ED for evaluation. Workup in the ED revealed elevated lipase c/w pancreatitis which was not noted on her prior
admission.
Problem #1: Acute pancreatitis with chronic abdominal pain and elevated lipase. Patient was admitted and seen in consultation by GI. She was initially made n.p.o. but GI did allow for tube feedings. The patient did not want any tube feedings.
She was seen in consultation by speech and was given a soft diet with bite sized amounts to eat. Patient has chronic abdominal pain and is on chronic outpatient pain medications. She tolerated her diet. Lipase numbers fluctuated and eventually
were stopped being checked.
Problem #2: Chronic aspiration with dysphagia along with pneumonia. As mentioned, patient was noted to have pneumonia on her CAT scan. She was started on IV antibiotics. Speech did evaluate the patient and she was given soft and bite sized diet
with nectar thick liquids. Patient refused starting tube feedings at this time.
Problem #3: All other medical issues. These include Recent small bowel obstruction, atherosclerotic cardiovascular disease, chronic kidney disease stage III, hypothyroidism, chronic pain with fibromyalgia, right hemiparesis as a late effect of a
previous stroke, peripheral neuropathy secondary to chemotherapy for her cervical cancer, dysarthria status post partial glossectomy, pancytopenia, type 2 diabetes mellitus. These medical issues were stable during her hospitalization. Medications
were continued as able.
It should be noted, that the patient tried to sign out AGAINST MEDICAL ADVICE on February 01, 2024. She was dressed and sitting in her wheelchair and did sign the AMA paperwork. She did go to the discharge lounge. Prior to my dictating her discharge
AGAINST MEDICAL ADVICE, it was noted that the patient was from a long-term and could not go back to the long-term until she was medically clear. She was then brought back to her room and her hospitalization continued. She told us that family
was going to pick her up which did not happen.
Patient is stable to return to the long-term at this time. If there are any questions regarding this dictation or her hospital stay, patient hesitate to call. Our office number is [phone].
Time for discharge 37 minutes.
Important imaging findings :
CT SCAN ABDOMEN/PELVIS IMPRESSION:
1. MILD RIGHT HYDRONEPHROSIS which has increased since 01/22/2024 and could be secondary to ascending right urinary tract infection and acute right pyelonephritis. No CT evidence for obstructing right ureteral calculus.
2. Moderate to severe chronic left renal disease and innumerable nonobstructing left intrarenal calculi.
3. Previous subtotal colectomy and left anterior abdominal wall ileostomy.
4. Mild splenomegaly.
5. MODERATE RIGHT LOWER LOBE ASPIRATION PNEUMONIA.
6. Very severe discogenic degenerative disease at L3/L4 and L4/L5.
Discharge Plan
-
Patient Disposition: Care Home/SNF
Discharge Diagnosis/Procedures: Acute pyelonephritis, aspiration pneumonia, acute pancreatitis, right hemiparesis as late effect of a previous stroke, peripheral neuropathy secondary to chemotherapy, dysarthria, partial glossectomy, diet-controlled
type 2 diabetes recent small bowel obstruction, atherosclerotic cardiovascular disease, chronic kidney disease stage III, chronic aspiration and dysphagia, hypothyroidism, chronic pain and fibromyalgia,
Condition: Fair
Diet: Low Fat, Diabetic, Carb Controlled and Other diet
Additional Diets: soft and bite sized with nectar thick liquids
Activity: As tolerated
Driving Restrictions: No driving
Bathing Restrictions: None
Activity Restrictions/Additional Instructions:
To be used for ileostomy
Change appliance q 3-4 days or if leakage
clean skin with warm water, pat dry.
dusting of stoma powder then skin prep to pink areas surrounding stoma. Angélica seal around stoma, cut to fit [place] 2 1/4' convex wafer #[id number] and high output pouch #[id number] attached to straight bag drainage system # [id number] *CAN REUSE DRAINAGE SYSTEM,
RINSE OUT WITH 1/2 AND 1/2 WATER TO WHITE VINEGAR WEEKLY AND PRN ODOR.
Referrals:
Michael Vargas MD [Family Provider] - in less than 1 week
Prescriptions:
New
hydrocodone-acetaminophen 5-325 mg Tablet
1 tab PO Q6H PRN (Reason: moderate to severe pain) Qty: 10 0RF
cephalexin 500 mg Capsule
500 mg PO BID Qty: 10 0RF
Rx Instructions:
take for 5 more days
famotidine 20 mg Tablet
20 mg PO DAILY Qty: 0 0RF
Continued
clopidogrel [Plavix] 75 mg Tablet
75 mg PO DAILY
Patient Comments:
08/25/23 may have stop for recent dental process
atorvastatin 40 mg tablet
40 mg PO HS
buspirone 5 mg Tablet
5 mg PO BID
acetaminophen 325 mg Tablet
650 mg PO Q4H PRN (Reason: mild pain/temp>100F)
ammonium lactate 12 % Lotion
1 applic TOPICAL BID
Patient Comments:
01/22/2024: apply to arms/legs/back
amlodipine 5 mg tablet
5 mg PO DAILY
venlafaxine 100 mg tablet
100 mg PO BID
sodium bicarbonate 650 mg Tablet
650 mg PO Q8H
levothyroxine 50 mcg Tablet
50 mcg PO DAILY
Fleet Enema 19-7 gram/118 mL Enema
118 ml [place] DAILY PRN (Reason: if dulcolax is ineffective after 24hrs)
gabapentin 300 mg capsule
300 mg PO HS
aspirin 81 mg Tablet,Chewable
81 mg PO DAILY
gabapentin 100 mg capsule
100 mg PO Q6H PRN (Reason: mild-mod pain)
loratadine 10 mg Tablet
10 mg PO DAILY
cholecalciferol (vitamin D3) [Vitamin D3] 25 mcg (1,000 unit) Tablet
50 mcg PO DAILY
pantoprazole [address] For Susp In Packet
20 mg PO DAILY
melatonin 5 mg Tablet
5 mg PO HS
guaifenesin 600 mg Tablet Extended Release 12hr
600 mg PO BID
Discontinued
loperamide [Imodium A-D] 2 mg Capsule
2 mg PO Q6H PRN (Reason: diarrhea)
hydrocodone-acetaminophen 5-325 mg Tablet
1 tab PO Q6H PRN (Reason: moderate to severe pain)
magnesium hydroxide [Milk of Magnesia] 400 mg/5 mL Suspension
30 ml PO DAILY PRN (Reason: if no bm x 3 days)
bisacodyl [Dulcolax (bisacodyl)] 10 mg Suppository
10 mg ID DAILY PRN (Reason: if mom is ineffective after 24hrs)
Discharge Orders:
Discharge Patient (As Directed); Ordered 02/06/24
Ordered By: Jessenia Queen
Discharge Date and Time
Discharge Date/Time: 02/06/24 16:49
Print Language: ROMANIAN
== END 2024-02-06 16:49 | DRG 438 ==
LOC: 4 WEST ACU 21:49
PROVIDERS: Internal Medicine; ADMITTING PHYSICIAN Hospitalist; ATTENDING PHYSICIAN Internal Medicine; CONSULT PHYSICIAN Specialist; EMERGENCY PHYSICIAN Emergency Medicine; FAMILY PHYSICIAN Internal Medicine
DX: K85.90 Acute pancreatitis without necrosis or infection, unspecified (principal); J69.0 Pneumonitis due to inhalation of food and vomit; I69.351 Hemiplegia and hemiparesis following cerebral infarction affecting right dominant side; N17.9 Acute kidney failure, unspecified; K56.600 Partial intestinal obstruction, unspecified as to cause; D61.818 Other pancytopenia; K56.7 Ileus, unspecified; F17.210 Nicotine dependence, cigarettes, uncomplicated; K86.1 Other chronic pancreatitis; I25.10 Atherosclerotic heart disease of native coronary artery without angina pectoris; E03.9 Hypothyroidism, unspecified; M79.7 Fibromyalgia; G89.4 Chronic pain syndrome; G62.0 Drug-induced polyneuropathy; T45.1X5A Adverse effect of antineoplastic and immunosuppressive drugs, initial encounter; Z66 Do not resuscitate; K80.20 Calculus of gallbladder without cholecystitis without obstruction; K44.9 Diaphragmatic hernia without obstruction or gangrene; I12.9 Hypertensive chronic kidney disease with stage 1 through stage 4 chronic kidney disease, or unspecified chronic kidney disease; N18.32 Chronic kidney disease, stage 3b
CPT/HCPCS: 74022; 74176; 76700; 80048; 80053; 81003; 81015; 82248; 82962; 83605; 83690; 83735; 85025; 85027; 87086; 92526; 92610; 96361; 96374; 96375; 97162; 97166; 97530; 99284; 99406

== ENCOUNTER 2024-07-01 04:23 | Emergency (ER) | payer MEDICARE, SELFPAY ==
[2024-07-01] VITALS (8 sets, daily range): BP systolic 126–175; BP diastolic 73–96; BMI 31.9
--- NOTE | 2024-07-01 04:52 | ED.GENMED ---
History of Present Illness
<ANDRÉS Lawson - Last Filed: 07/01/24 05:23>
General
Chief Complaint: Abdominal Pain
Time Seen by Provider: 07/01/24 04:52
History of Present Illness
History of Present Illness:
Patient is a 58 year old female presenting with complaints of abdominal pain x 10 hours. The pain started at 600pm where she was medicated for the pain but later in the night it didn't go away. Patient states that the pain was strictly in the LUQ by
her feeding tube and colostomy bag. The pain was rated a 7/10 on a pain scale and does not radiate anywhere. Patient claims pain like this has happened before in waves over the past couple months, but nothing to this extent. She says she doesn't use
her feeding tube anymore and is able to hold down food and liquids fine. Patient denies any nausea vomiting fever chest pain palpitations sob.
Patient has had her ostomy bag moved 5 times because of hernias, the last time it was moved it was an emergent surgery. She claims she had a colostomy bag but it is now an ileostomy. Patient has a history of pancreatitis but says this feels
different.
Past History
<ANDRÉS Lawson - Last Filed: 07/01/24 05:23>
Past History
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
Renal calculus, Parotid mass, LVH, GI bleeding, Anemia, PTSD); Negative Asthma or Hypercholesterolemia
ED Past Surgical History: Appendectomy, Bowel resection, Cardiac (Cardiac stent), Gynecological (Cervical Cancer with radiaion and Chemo, Hysterectomy), Orthopedic (Left ankle, left knee surgery X 2, Left wrist surgery, Right knee surgery, ),
Tonsilectomy (adnoids) and Other (Colostomy changed to Ileostomy, Ear tubes, Right parotidectomy, Left great toe and second Toe amputation)
Social History
Tobacco: Smoker (1ppd)
Alcohol: None
Drug: None
Personal:
Living: skilled nursing
Employment: Not employed
Family History
Family History: Early CAD (in patient's father)
Review of Systems
<ANDRÉS Lawson - Last Filed: 07/01/24 05:23>
Review of Systems
Constitutional: Reports no symptoms
Respiratory: Reports no symptoms
Cardiac: Reports no symptoms
ABD/GI: Reports abdominal pain
: Reports no symptoms
<Jim Rosen DO - Last Filed: 07/01/24 06:25>
Review of Systems
All Other Systems: Not applicable
Phy Exam
<ANDRÉS Lawson - Last Filed: 07/01/24 05:23>
Cardiovascular Exam
Cardiovascular Exam: regular rate/rhythm, no edema, no gallop, no JVD and no murmur
Pulmonary Exam
Pulmonary Exam: lungs clear, no respiratory distress, no rales, chest non tender, no crackles, no rhonchi, no stridor, no wheezing and no cough
Gastrointestinal Exam
Gastrointestinal Exam: normal bowel sounds, non distended and tender
Palpation: left upper quadrant: Moderate tenderness
<Jim Rosen DO - Last Filed: 07/01/24 06:25>
Physical Exam
Physical Exam:
Physical Exam
General: Chronically ill-appearing female
Neck: No jaundice
Heart: Regular
Lungs: no acute respiratory distress. clear bilaterally
Abdomen: Soft multiple surgical scars, ostomy in the left mid abdomen feeding tube in the left upper abdomen brown solid stool in the ostomy
Neuro: alert and oriented. no focal neurological deficits
Skin: no rash
Psychiatric: well kept. interactive and cooperative
Extremities: no edema.
Course
<ANDRÉS Lwason - Last Filed: 07/01/24 05:23>
Orders/Labs/Results
Orders:
Orders
07/01/24 05:23
0.9% Sodium Chloride 1000 ml [Nss] 1,000 ml IV BOLUS
HYDROmorphone [Dilaudid] 0.5 mg IV NOW STA
Iohexol [Omnipaque] See Protocol PO NOW STA
Ondansetron Injectable [Zofran] 4 mg IV NOW STA
07/01/24 05:59
Complete Blood Count/With Diff Urgent
Comprehensive Metabolic Panel Urgent
Lipase Urgent
07/01/24 06:22
Electrocardiogram (*1) Urgent
Reason for Study: Abdominal Pain
EKG- Treatment ONCE
07/01/24 06:34
CT Abd/pel (oral only)-[facility] Only Urgent
Comment:
Reason For Exam: pain
Iohexol [Omnipaque] See Protocol PO NOW STA
07/01/24 08:58
Pantoprazole [Protonix IV] 40 mg IV NOW STA
Abnormal Lab Results
07/01/24
05:59
RBC 3.19 L 10^6/uL
(4.20-5.40)
Hgb 9.3 L g/dL
(12.0-16.0)
Hct 28.2 L %
(37.0-47.0)
Lymphocytes % 19.2 L %
(20.5-51.1)
Eosinophils % 7.0 H %
(0-6)
Carbon Dioxide 21 L mmol/L
(22-30)
BUN 36 H mg/dl
(7-17)
Creatinine 1.6 H mg/dL
(0.6-1.0)
Glucose 105 H mg/dl
(70-99)
07/01/24 05:59
07/01/24 05:59
Vital Signs
Initial and Last Documented VS:
Initial Vital Signs
BP
163/95
07/01/24 04:30
Last Documented Vital Signs
Pulse Resp BP Pulse Ox
70 14 155/80 97
07/01/24 08:02 07/01/24 08:02 07/01/24 08:02 07/01/24 08:00
<Jim Rosen, DO - Last Filed: 07/01/24 06:25>
Orders/Labs/Results
Orders:
Orders
07/01/24 05:23
0.9% Sodium Chloride 1000 ml [Nss] 1,000 ml IV BOLUS
HYDROmorphone [Dilaudid] 0.5 mg IV NOW STA
Iohexol [Omnipaque] See Protocol PO NOW STA
Ondansetron Injectable [Zofran] 4 mg IV NOW STA
07/01/24 05:59
Complete Blood Count/With Diff Urgent
Comprehensive Metabolic Panel Urgent
Lipase Urgent
07/01/24 06:22
Electrocardiogram (*1) Urgent
Reason for Study: Abdominal Pain
EKG- Treatment ONCE
07/01/24 06:34
CT Abd/pel (oral only)-[facility] Only Urgent
Comment:
Reason For Exam: pain
Iohexol [Omnipaque] See Protocol PO NOW STA
07/01/24 08:58
Pantoprazole [Protonix IV] 40 mg IV NOW STA
Abnormal Lab Results
07/01/24
05:59
RBC 3.19 L 10^6/uL
(4.20-5.40)
Hgb 9.3 L g/dL
(12.0-16.0)
Hct 28.2 L %
(37.0-47.0)
Lymphocytes % 19.2 L %
(20.5-51.1)
Eosinophils % 7.0 H %
(0-6)
Carbon Dioxide 21 L mmol/L
(22-30)
BUN 36 H mg/dl
(7-17)
Creatinine 1.6 H mg/dL
(0.6-1.0)
Glucose 105 H mg/dl
(70-99)
07/01/24 05:59
07/01/24 05:59
Vital Signs
Initial and Last Documented VS:
Initial Vital Signs
BP
163/95
07/01/24 04:30
Last Documented Vital Signs
Pulse Resp BP Pulse Ox
70 14 155/80 97
07/01/24 08:02 07/01/24 08:02 07/01/24 08:02 07/01/24 08:00
<Denzel Carrera MD - Last Filed: 07/01/24 09:03>
Orders/Labs/Results
Orders:
Orders
07/01/24 05:23
0.9% Sodium Chloride 1000 ml [Nss] 1,000 ml IV BOLUS
HYDROmorphone [Dilaudid] 0.5 mg IV NOW STA
Iohexol [Omnipaque] See Protocol PO NOW STA
Ondansetron Injectable [Zofran] 4 mg IV NOW STA
07/01/24 05:59
Complete Blood Count/With Diff Urgent
Comprehensive Metabolic Panel Urgent
Lipase Urgent
07/01/24 06:22
Electrocardiogram (*1) Urgent
Reason for Study: Abdominal Pain
EKG- Treatment ONCE
07/01/24 06:34
CT Abd/pel (oral only)-[facility] Only Urgent
Comment:
Reason For Exam: pain
Iohexol [Omnipaque] See Protocol PO NOW STA
07/01/24 08:58
Pantoprazole [Protonix IV] 40 mg IV NOW STA
Abnormal Lab Results
07/01/24
05:59
RBC 3.19 L 10^6/uL
(4.20-5.40)
Hgb 9.3 L g/dL
(12.0-16.0)
Hct 28.2 L %
(37.0-47.0)
Lymphocytes % 19.2 L %
(20.5-51.1)
Eosinophils % 7.0 H %
(0-6)
Carbon Dioxide 21 L mmol/L
(22-30)
BUN 36 H mg/dl
(7-17)
Creatinine 1.6 H mg/dL
(0.6-1.0)
Glucose 105 H mg/dl
(70-99)
07/01/24 05:59
07/01/24 05:59
Vital Signs
Initial and Last Documented VS:
Initial Vital Signs
BP
163/95
07/01/24 04:30
Last Documented Vital Signs
Pulse Resp BP Pulse Ox
70 14 155/80 97
07/01/24 08:02 07/01/24 08:02 07/01/24 08:02 07/01/24 08:00
<ANDRÉS Lawson - Last Filed: 07/01/24 05:23>
MDM/Problems Addressed
Differential Diagnosis Includes:
hernia, pancreatitis, colostomy complication
MDM/Problems Addressed:
Order blood work and CT scan. Give pain meds.
<Jim Rosen DO - Last Filed: 07/01/24 06:25>
MDM/Problems Addressed
Chronic conditions affecting care: Previous abdomnial surgery
Acute Exacerbation and/or Progression of Chronic Illness: Previous abdomnial surgery
<ANDRÉS Lawson - Last Filed: 07/01/24 05:23>
*Critical Care Note
Total Time (30-74mins, 75-104mins- exclusive of procedures): Not Applicable
<Jim Rosen DO - Last Filed: 07/01/24 06:25>
*Radiology
Radiology exam reviewed: radiology read reviewed
*Pulse Oximetry
Patient hypoxic: no
*EKG
Interpreted by ED Provider?: Yes
Interpretation: abnormal
Comparison EKG: no comparison EKG present
Heart Rate: 78
Rate: normal
Rhythm: sinus
Ischemia: non-specific ST changes
*Client Relations Associate Interpretation
Rate: normal
Interpretation: normal
Heart Rate: 78
Rhythm: sinus
Data Reviewed
Review of Other/Old Records Reveals: Labs, Radiology Studies, Progress Notes and Discharge Summary
Source: patient
<Denzel Carrera MD - Last Filed: 07/01/24 09:03>
Update Note
Update Note:
UPDATE (Denzel Carrera MD)
I have seen and evaluated the patient after signout and reviewed all labs and imaging.
Focused HPI: 58-year-old female with history as documented presents for abdominal pain left upper quadrant near her chronic G-tube. This has been an ongoing issue for the past few months she is currently taking hydrocodone and Reglan at nursing
home which she feels is not controlling symptoms. She has a colostomy bag�denies increased output. Mild nausea no vomiting. No fevers.
Physical exam: Awake alert no distress. Hypertensive otherwise normal vitals. Abdomen soft, mildly tender left upper quadrant; G-tube in place, no erythema or drainage from the site; colostomy bag left lower quadrant brown stool in the bag no
blood.
Medical Decision Makin-year-old female presents for evaluation of acute on chronic left upper quadrant abdominal pain. Started to get a bit worse last night around 6 PM. Vitals and exam as noted. Labs were sent off including a CBC which
showed stable anemia, CMP which showed creatinine of 1.6 which is baseline. Lipase normal. She is currently pending CT abdomen pelvis�given surgical history drinking oral contrast. No IV contrast given chronic kidney disease. Continue to monitor
pending CT.
CT abdomen pelvis shows no acute pathology to account for patient's symptoms. Vitals have been stable. Suspect likely gastritis. Plan to increase PPI to 40 mg p.o. daily. Stable for discharge.
ED Attending Note
<ANDRÉS Lawson - Last Filed: 07/01/24 05:23>
-
Portions of this chart may have been created with voice recognition software.� Occasional wrong word or��sound alike� substitutions may have occurred due to the inherent limitations of voice recognition software.
<Jim Rosen DO - Last Filed: 07/01/24 06:25>
ED Attending Note
Patient seen and examined by attending physician: Yes
ED Attending Note:
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
worse over the past few days, she has had pancreatitis before unclear if this is the same pain or not no vomiting,
Will treat symptomatically check CT scan disposition pending
Discharge Plan
Departure
Patient with high blood pressure during this ER visit?: Yes
Discharge Problem:
Abdominal pain
Instructions: Gastritis (DC), Abdominal Pain
Prescriptions:
New
pantoprazole [address] for susp in packet
40 mg PO DAILY Qty: 30 0RF
Discontinued
pantoprazole [address] For Susp In Packet
20 mg PO DAILY
No Action
clopidogrel [Plavix] 75 mg Tablet
75 mg PO DAILY
Patient Comments:
08/25/23 may have stop for recent dental process
atorvastatin 40 mg tablet
40 mg PO HS
buspirone 5 mg Tablet
5 mg PO BID
acetaminophen 325 mg Tablet
650 mg PO Q4H PRN (Reason: mild pain/temp>100F)
venlafaxine 100 mg tablet
100 mg PO BID
sodium bicarbonate 650 mg Tablet
650 mg PO Q8H
levothyroxine 50 mcg Tablet
50 mcg PO DAILY
Fleet Enema 19-7 gram/118 mL Enema
118 ml [place] DAILY PRN (Reason: if dulcolax is ineffective after 24hrs)
gabapentin 300 mg capsule
300 mg PO TID
gabapentin 100 mg capsule
100 mg PO Q6H PRN (Reason: mild-mod pain)
loratadine 10 mg Tablet
10 mg PO DAILY
cholecalciferol (vitamin D3) [Vitamin D3] 25 mcg (1,000 unit) Tablet
50 mcg PO DAILY
melatonin 5 mg Tablet
5 mg PO HS
guaifenesin 600 mg Tablet Extended Release 12hr
600 mg PO BID
hydrocodone-acetaminophen 5-325 mg Tablet
1 tab PO Q6H PRN (Reason: moderate to severe pain) Qty: 10 0RF
cephalexin 500 mg Capsule
500 mg PO BID Qty: 10 0RF
Rx Instructions:
take for 5 more days
famotidine 20 mg Tablet
20 mg PO DAILY Qty: 0 0RF
Referrals:
Michael Vargas MD [Family Provider] - Call in 1-3 days for appt
Activity Restrictions/Additional Instructions:
Thank you for visiting the Emergency Department at [facility].
1. Please schedule a follow up appointment as directed. Call first thing tomorrow morning to make an appointment.
2. If indicated, please take your medications as instructed and indicated on discharge paperwork.
3. If any of your symptoms do not improve, or persist, or become more severe within 6-12 hours, please return to the emergency department for further care.
4. Please return to the emergency department if you develop a headache, neck pain/stiffness, fever greater than 100.4F, chest pain, shortness of breath, persistent nausea, vomiting, slurred speech, difficulty walking, numbness/tingling, weakness,
signs of infection or any other symptoms that are worrisome to you.
Please call [phone] if you have any questions.
Interventions
Interventions:
*Risk Screen - Suicide Last Done: 07/01/24 04:45
*General Assessment Last Done: 07/01/24 04:42
*Neglect/Abuse Screening Last Done: 07/01/24 04:44
*ED COVID-19 Vaccine History Last Done: 07/01/24 04:42
FP-Mqwtva-Tzjggfxmgl Assessment Last Done: 07/01/24 04:46
Discharge Date and Time
Print Language: ICELANDIC
[2024-07-01] MEDS: ZOFRAN 4 MG IV (06:00)
[2024-07-01] MEDS: DILAUDID 0.5 MG IV (06:00)
[2024-07-01] MEDS: OMNIPAQUE 50 ML PO (06:00)
[2024-07-01] MEDS: NSS 1000 IV (06:06)
[2024-07-01 06:16] LABS: % Basophils 0.4 % (0-2); % Immature Granulocytes 0.3 % (0-0.5); % Lymphocytes 19.2 % (20.5-51.1); % Monocytes 8.1 % (1.7-9.3); Absolute Eosinophils 0.5 10^3/uL (0-0.7); Absolute Lymphocytes 1.4 10^3/uL (1.2-3.4); Absolute Monocytes 0.6 10^3/uL (0.1-0.6); Absolute Neutrophils 4.6 10^3/uL (1.4-6.5); Hematocrit 28.2 % (37.0-47.0); Hemoglobin 9.3 g/dL (12.0-16.0); Mean Corpuscular Hgb 29.2 pg (27.0-31.0); Mean Corpuscular Volume 88.4 fL (81.0-99.0); Nucleated Red Blood Cells % 0 %; Platelet Count 137 10^3/uL (130-400); Red Blood Cell Count 3.19 10^6/uL (4.20-5.40); Red Cell Dist. Width 13.8 % (11.5-14.5)
[2024-07-01 06:27] LABS: ALT (SGPT) 20 U/L (0-35); AST (SGOT) 20 U/L (14-36); Alkaline Phosphatase 84 U/L (38-126); Blood Urea Nitrogen 36 mg/dl (7-17); Calcium 9.5 mg/dl (8.4-10.2); Carbon Dioxide 21 mmol/L (22-30); Chloride 107 mmol/L (98-107); Estimated Creatinine Clearance 45 ml/min; Glucose 105 mg/dl (70-99); Lipase 285 U/L (23-300); Sodium 142 mmol/L (135-145); Total Bilirubin 0.3 mg/dl (0.2-1.3); Total Protein 7.8 g/dl (6.3-8.2); eGFR 37.15
[2024-07-01] MEDS: PROTONIX IV 40 MG IV (09:37)
== END 2024-07-01 12:21 | disposition home or self-care (01) ==
LOC: EMR 04:23
PROVIDERS: EMERGENCY PHYSICIAN Emergency Medicine; FAMILY PHYSICIAN Internal Medicine
DX: R10.12 Left upper quadrant pain (principal); E03.9 Hypothyroidism, unspecified; E11.9 Type 2 diabetes mellitus without complications; F17.200 Nicotine dependence, unspecified, uncomplicated; G47.30 Sleep apnea, unspecified; I10 Essential (primary) hypertension; I25.10 Atherosclerotic heart disease of native coronary artery without angina pectoris; M06.9 Rheumatoid arthritis, unspecified; Z85.41 Personal history of malignant neoplasm of cervix uteri; Z86.73 Personal history of transient ischemic attack (TIA), and cerebral infarction without residual deficits; Z90.49 Acquired absence of other specified parts of digestive tract; Z93.1 Gastrostomy status; Z93.3 Colostomy status
CPT/HCPCS: 96374; 96375; 96361; 99284; 74176; 80053; 83690; 85025; 93005

== ENCOUNTER 2024-07-15 08:56 | Inpatient (IN) | payer MEDICARE, SELFPAY ==
[2024-07-15] VITALS (18 sets, daily range): BP systolic 110–163; BP diastolic 65–82; BMI 31.0; BMI 30.5
--- NOTE | 2024-07-15 03:49 | ED.GENMED ---
History of Present Illness
<ANDRÉS Lawson - Last Filed: 07/15/24 04:38>
General
Chief Complaint: Abdominal Symptoms
Source: patient
Time Seen by Provider: 07/15/24 03:49
Nursing documentation reviewed up to this point in time: agreed with
History of Present Illness
History of Present Illness:
Patient is a 58 year old female with a PMH of HTN chronic abdominal pain and an ileostomy bag presenting to the ED with complaints of abdominal pain x 1 day. Patient states she woke up this morning with severe sharp generalized abdominal pain. She
rated it a 10/10 on a pain scale. The pain does not radiate anywhere and it comes and goes. She has not eaten anything today, only has been drinking fluids. Patient admits to her ileostomy bag not producing anything for the past day. She was here on
07/01/24 for abdominal pain, but states it feels different from then. Patient has vomited multiple times throughout the day, denies any blood. Patient denies fever dizziness chest pain palpitations sob changes in urinary frequency/urgency.
Patient has a history of HTN HLD DM cervical cancer CVA CAD MS renal failure and chronic abdominal pain. She admits to taking all of her daily medication today. She denies alcohol use but admits to smoking tobacco. During history she was constantly
moving legs and could not get comfortable.
Past History
<ANDRÉS Lawson - Last Filed: 07/15/24 04:38>
Past History
ED Past Medical History: CAD, Cancer (Cervical cancer), CVA (X 2), Fibromyalgia, HTN, NIDDM, MS, Hypothyroidism, Psychiatric (Depression, PTSD) and Other (Rheumatoid arthritis, neuropathy, Colitis from radiation, Cellulitis, Sleep apnea uses CPAP,
Renal calculus, Parotid mass, LVH, GI bleeding, Anemia, PTSD); Negative Asthma or Hypercholesterolemia
ED Past Surgical History: Appendectomy, Bowel resection, Cardiac (Cardiac stent), Gynecological (Cervical Cancer with radiaion and Chemo, Hysterectomy), Orthopedic (Left ankle, left knee surgery X 2, Left wrist surgery, Right knee surgery, ),
Tonsilectomy (adnoids) and Other (Colostomy changed to Ileostomy, Ear tubes, Right parotidectomy, Left great toe and second Toe amputation)
Social History
Tobacco: Smoker (1ppd)
Alcohol: None
Drug: None
Personal:
Living: jail
Employment: Not employed
Family History
Family History: Early CAD (in patient's father)
Review of Systems
<ANDRÉS Lawson - Last Filed: 07/15/24 04:38>
Review of Systems
Allergies reviewed?: Yes
Constitutional: Reports no symptoms
Respiratory: Reports no symptoms
Cardiac: Reports no symptoms
ABD/GI: Reports abdominal pain, nausea and vomiting
: Reports no symptoms
Neurological: Reports no symptoms
Phy Exam
<ANDRÉS Lawson Last Filed: 07/15/24 04:38>
General Physical Exam
General Presentation: moderate distress
General age: appears older than age
General Habitus: elderly
General Mental: alert
Cardiovascular Exam
Cardiovascular Exam: regular rate/rhythm, no edema, no gallop, no JVD and no murmur
Pulmonary Exam
Pulmonary Exam: lungs clear, no respiratory distress, no rales, chest non tender, no crackles, no rhonchi, no stridor, no wheezing and no cough
Gastrointestinal Exam
Gastrointestinal Exam: soft, no pulsatile mass, no cva tenderness, abnormal bowel sounds (decreased ) and tender
Palpation: left upper quadrant: Severe tenderness, left lower quadrant: Severe tenderness, right upper quadrant: Moderate tenderness and right lower quadrant: Moderate tenderness
Course
<ANDRÉS Lawson Last Filed: 07/15/24 04:38>
Orders/Labs/Results
Orders:
Orders
07/15/24 03:24
IV Insert/Care/Rem.- Treatment PRN
07/15/24 03:37
Complete Blood Count/With Diff Urgent
Comprehensive Metabolic Panel Urgent
Lipase Urgent
Manual Differential Urgent
07/15/24 04:38
0.9% Sodium Chloride 1000 ml [Nss] 1,000 ml IV BOLUS
HYDROmorphone [Dilaudid] 0.5 mg IV NOW STA
Ondansetron Injectable [Zofran] 4 mg IV NOW STA
07/15/24 04:40
CT Abd/pel (oral only)-DH Only Urgent
Comment:
Reason For Exam: L sided abd pain, N/V, concern for SBO
Iohexol [Omnipaque] See Protocol PO NOW STA
07/15/24 06:31
HYDROmorphone [Dilaudid] 0.25 mg IV NOW STA
07/15/24 07:13
Lactic Acid Urgent
Abnormal Lab Results
07/15/24
03:37
RBC 3.75 L 10^6/uL
(4.20-5.40)
Hgb 10.7 L g/dL
(12.0-16.0)
Hct 32.9 L %
(37.0-47.0)
MCHC 32.5 L g/dL
(33.0-37.0)
Abs Neuts (Manual) 8.0 H 10^3/uL
(1.4-6.5)
Band Neutrophils 29 H %
(0-3)
Lymphocytes (Manual) 2 L %
(20-51)
Carbon Dioxide 20 L mmol/L
(22-30)
BUN 54 H mg/dl
(7-17)
Creatinine 1.8 H mg/dL
(0.6-1.0)
Glucose 146 H mg/dl
(70-99)
07/15/24 03:37
07/15/24 03:37
Vital Signs
Initial and Last Documented VS:
Initial Vital Signs
Temp Pulse Resp BP Pulse Ox
98.0 F 82 18 110/76 95
07/15/24 01:23 07/15/24 01:23 07/15/24 01:23 07/15/24 01:23 07/15/24 01:23
Last Documented Vital Signs
Temp Pulse Resp BP Pulse Ox
98.0 F 77 21 127/76 94
07/15/24 01:23 07/15/24 06:30 07/15/24 06:30 07/15/24 06:00 07/15/24 06:30
<Sharee Orozco DO - Last Filed: 07/15/24 06:34>
Orders/Labs/Results
Orders:
Orders
07/15/24 03:24
IV Insert/Care/Rem.- Treatment PRN
07/15/24 03:37
Complete Blood Count/With Diff Urgent
Comprehensive Metabolic Panel Urgent
Lipase Urgent
Manual Differential Urgent
07/15/24 04:38
0.9% Sodium Chloride 1000 ml [Nss] 1,000 ml IV BOLUS
HYDROmorphone [Dilaudid] 0.5 mg IV NOW STA
Ondansetron Injectable [Zofran] 4 mg IV NOW STA
07/15/24 04:40
CT Abd/pel (oral only)-DH Only Urgent
Comment:
Reason For Exam: L sided abd pain, N/V, concern for SBO
Iohexol [Omnipaque] See Protocol PO NOW STA
07/15/24 06:31
HYDROmorphone [Dilaudid] 0.25 mg IV NOW STA
07/15/24 07:13
Lactic Acid Urgent
Abnormal Lab Results
07/15/24
03:37
RBC 3.75 L 10^6/uL
(4.20-5.40)
Hgb 10.7 L g/dL
(12.0-16.0)
Hct 32.9 L %
(37.0-47.0)
MCHC 32.5 L g/dL
(33.0-37.0)
Abs Neuts (Manual) 8.0 H 10^3/uL
(1.4-6.5)
Band Neutrophils 29 H %
(0-3)
Lymphocytes (Manual) 2 L %
(20-51)
Carbon Dioxide 20 L mmol/L
(22-30)
BUN 54 H mg/dl
(7-17)
Creatinine 1.8 H mg/dL
(0.6-1.0)
Glucose 146 H mg/dl
(70-99)
07/15/24 03:37
07/15/24 03:37
Vital Signs
Initial and Last Documented VS:
Initial Vital Signs
Temp Pulse Resp BP Pulse Ox
98.0 F 82 18 110/76 95
07/15/24 01:23 07/15/24 01:23 07/15/24 01:23 07/15/24 01:23 07/15/24 01:23
Last Documented Vital Signs
Temp Pulse Resp BP Pulse Ox
98.0 F 77 21 127/76 94
07/15/24 01:23 07/15/24 06:30 07/15/24 06:30 07/15/24 06:00 07/15/24 06:30
<Brendon James, DO - Last Filed: 07/15/24 07:18>
Orders/Labs/Results
Orders:
Orders
07/15/24 03:24
IV Insert/Care/Rem.- Treatment PRN
07/15/24 03:37
Complete Blood Count/With Diff Urgent
Comprehensive Metabolic Panel Urgent
Lipase Urgent
Manual Differential Urgent
07/15/24 04:38
0.9% Sodium Chloride 1000 ml [Nss] 1,000 ml IV BOLUS
HYDROmorphone [Dilaudid] 0.5 mg IV NOW STA
Ondansetron Injectable [Zofran] 4 mg IV NOW STA
07/15/24 04:40
CT Abd/pel (oral only)-DH Only Urgent
Comment:
Reason For Exam: L sided abd pain, N/V, concern for SBO
Iohexol [Omnipaque] See Protocol PO NOW STA
07/15/24 06:31
HYDROmorphone [Dilaudid] 0.25 mg IV NOW STA
07/15/24 07:13
Lactic Acid Urgent
Abnormal Lab Results
07/15/24
03:37
RBC 3.75 L 10^6/uL
(4.20-5.40)
Hgb 10.7 L g/dL
(12.0-16.0)
Hct 32.9 L %
(37.0-47.0)
MCHC 32.5 L g/dL
(33.0-37.0)
Abs Neuts (Manual) 8.0 H 10^3/uL
(1.4-6.5)
Band Neutrophils 29 H %
(0-3)
Lymphocytes (Manual) 2 L %
(20-51)
Carbon Dioxide 20 L mmol/L
(22-30)
BUN 54 H mg/dl
(7-17)
Creatinine 1.8 H mg/dL
(0.6-1.0)
Glucose 146 H mg/dl
(70-99)
07/15/24 03:37
07/15/24 03:37
Vital Signs
Initial and Last Documented VS:
Initial Vital Signs
Temp Pulse Resp BP Pulse Ox
98.0 F 82 18 110/76 95
07/15/24 01:23 07/15/24 01:23 07/15/24 01:23 07/15/24 01:23 07/15/24 01:23
Last Documented Vital Signs
Temp Pulse Resp BP Pulse Ox
98.0 F 77 21 127/76 94
07/15/24 01:23 07/15/24 06:30 07/15/24 06:30 07/15/24 06:00 07/15/24 06:30
<ANDRÉS Lawson - Last Filed: 07/15/24 04:38>
MDM/Problems Addressed
Differential Diagnosis Includes:
SBO, LBO, chronic abdominal pain, pancreatitis, colitis
MDM/Problems Addressed:
WBC not elevated, order CT and give zofran for n/v and meds for pain
<ANDRÉS Lawson - Last Filed: 07/15/24 04:38>
*Critical Care Note
Total Time (30-74mins, 75-104mins- exclusive of procedures): Not Applicable
<Sharee Orozco DO - Last Filed: 07/15/24 06:34>
*Pulse Oximetry
Patient hypoxic: no
*[employer] Project Manager Interpretation
Rate: normal
Interpretation: normal
Rhythm: sinus
<Brendon James DO - Last Filed: 07/15/24 07:18>
Update Note
Update Note:
7:15 AM care of patient was transitioned pending CT abdomen/pelvis. CT is concerning for possible small bowel obstruction versus bowel ischemia. Will add lactic acid and admit
ED Attending Note
<ANDRÉS Lawson - Last Filed: 07/15/24 04:38>
-
Portions of this chart may have been created with voice recognition software.� Occasional wrong word or��sound alike� substitutions may have occurred due to the inherent limitations of voice recognition software.
<Sharee Orozco, DO - Last Filed: 07/15/24 06:34>
ED Attending Note
Patient seen and examined by attending physician: Yes
I performed the substantive portion of visit, reviewed & personally made and approve the management plan that is documented in note by myself or OWEN.: Yes
ED Attending Note:
This is a 58-year-old woman with multiple, complex past medical history, chronic resident of local jail. She has ileostomy, multiple previous abdominal surgeries presents with recurrent left-sided abdominal pain associated with nausea and
vomiting as well as decreased output from her ileostomy. She reports left-sided abdominal pain is crampy and intermittent in nature, comes in waves and is severe.
Very similar presentation earlier this month, July 01. Patient states pain tonight is much more severe than earlier this month. During that ED visit laboratory studies were unremarkable as well as unremarkable CT abdomen pelvis.
Previous hospitalization x 2 January of this year for treatment of partial small bowel obstruction, aspiration pneumonia and pancreatitis.
Advanced directives reveal DNR status.
58-year-old woman appears older than stated age, appears chronically debilitated, bedbound. Sleeping upon initial evaluation, awakens easily, overall appears in no acute distress.
Emesis basin at bedside contains small amount of bilious liquid.
Oral mucosa is minimally dry.
Heart is regular rate and rhythm.
Lungs are clear to auscultation, respirations are easy and nonlabored.
Abdomen is rotund without distention, moderate tenderness about the left upper quadrant, left mid abdomen and tenderness left peristomal region. Ileostomy left mid abdomen with small amount of brown liquid stool in the bag.
Moderately hypoactive bowel sounds. No palpable masses.
Concern for recurrent partial small bowel obstruction, pancreatitis, ileus.
Labs are pending.
Will medicate for pain and nausea, initiate IV fluids and plan for CT abdomen pelvis.
07/15/2024 0632 AM
Patient is much more comfortable but does continue with mild to moderate intermittent crampy primarily left-sided abdominal pain. No further nausea/vomiting.
Labs are remarkable for stable chronic kidney disease with creatinine 1.8 but BUN has trended up from previous. Normal CBC. Mild metabolic acidosis, similar to previous July 01. LFTs, lipase within normal limits.
She continues to have no further output from ileostomy.
Oral contrast administered via PEG tube and awaiting CT abdomen pelvis with oral contrast.
Will continue IV fluids, IV pain medications as needed.
Discharge Plan
Departure
Patient Disposition: Admit
Date of Disposition: 07/15/24
Time of Disposition: 07:16
Admit to: Med/Surg
Presentation/result/management discussed w/ accepting MD/DO: Hospitalist
Discharge Problem:
SBO (small bowel obstruction)
Prescriptions:
No Action
clopidogrel [Plavix] 75 mg Tablet
75 mg PO DAILY
Patient Comments:
08/25/23 may have stop for recent dental process
atorvastatin 40 mg tablet
40 mg PO HS
buspirone 5 mg Tablet
5 mg PO BID
acetaminophen 325 mg Tablet
650 mg PO Q4H PRN (Reason: mild pain/temp>100F)
venlafaxine 100 mg tablet
100 mg PO BID
sodium bicarbonate 650 mg Tablet
650 mg PO Q8H
levothyroxine 50 mcg Tablet
50 mcg PO DAILY
Fleet Enema 19-7 gram/118 mL Enema
118 ml IA DAILY PRN (Reason: if dulcolax is ineffective after 24hrs)
gabapentin 300 mg capsule
300 mg PO TID
gabapentin 100 mg capsule
100 mg PO Q6H PRN (Reason: mild-mod pain)
loratadine 10 mg Tablet
10 mg PO DAILY
cholecalciferol (vitamin D3) [Vitamin D3] 25 mcg (1,000 unit) Tablet
50 mcg PO DAILY
melatonin 5 mg Tablet
5 mg PO HS
guaifenesin 600 mg Tablet Extended Release 12hr
600 mg PO BID
hydrocodone-acetaminophen 5-325 mg Tablet
1 tab PO Q6H PRN (Reason: moderate to severe pain) Qty: 10 0RF
cephalexin 500 mg Capsule
500 mg PO BID Qty: 10 0RF
Rx Instructions:
take for 5 more days
famotidine 20 mg Tablet
20 mg PO DAILY Qty: 0 0RF
pantoprazole [address] for susp in packet
40 mg PO DAILY Qty: 30 0RF
Referrals:
Michael Vargas MD [Family Provider] -
Interventions
Interventions:
*Risk Screen - Suicide Last Done: 07/15/24 01:23
*General Assessment Last Done: 07/15/24 01:23
*Neglect/Abuse Screening Last Done: 07/15/24 01:23
ED- Fall Risk Assessment Last Done: 07/15/24 01:30
*ED COVID-19 Vaccine History Last Done: 07/15/24 01:23
CY-Ciimrv-Axzhdivdqv Assessment Last Done: 07/15/24 01:30
Discharge Date and Time
Print Language: GEORGIAN
[2024-07-15 03:55] LABS: Hematocrit 32.9 % (37.0-47.0); Hemoglobin 10.7 g/dL (12.0-16.0); Mean Corp Hgb Conc. 32.5 g/dL (33.0-37.0); Mean Corpuscular Hgb 28.5 pg (27.0-31.0); Mean Corpuscular Volume 87.7 fL (81.0-99.0); Mean Platelet Volume 8.2 fL (7.4-10.4); Platelet Count 139 10^3/uL (130-400); Red Blood Cell Count 3.75 10^6/uL (4.20-5.40); Red Cell Dist. Width 14.2 % (11.5-14.5); White Blood Cell Count 9.2 10^3/uL (4.8-10.8)
[2024-07-15 04:20] LABS: ALT (SGPT) 18 U/L (0-35); AST (SGOT) 20 U/L (14-36); Albumin 4.2 g/dl (3.5-5.0); Alkaline Phosphatase 93 U/L (38-126); Blood Urea Nitrogen 54 mg/dl (7-17); Carbon Dioxide 20 mmol/L (22-30); Chloride 105 mmol/L (98-107); Estimated Creatinine Clearance 41 ml/min; Glucose 146 mg/dl (70-99); Lipase 73 U/L (23-300); Potassium 4.8 mmol/L (3.5-5.1); Sodium 141 mmol/L (135-145); Total Bilirubin 0.6 mg/dl (0.2-1.3); Total Protein 8.1 g/dl (6.3-8.2); eGFR 32.25
[2024-07-15 04:34] LABS: Nucleated Red Blood Cells % 0 %
[2024-07-15 04:35] LABS: Eosinophils 6 % (0-6); Metamyelocytes 1 % (-); Monocytes 3 % (2-9)
[2024-07-15 04:36] LABS: Normal RBC Morphology Yes; Total Cells Counted 100; Vacuolated Segs 1+
[2024-07-15 04:40] LABS: Band Neutrophils 29 % (0-3); Lymphocytes 2 % (20-51); Segmented Neutrophils 59 % (42-75)
[2024-07-15 04:41] LABS: Platelets Checked Yes
[2024-07-15] MEDS: NSS 1000 IV ×2 (05:04→09:31)
[2024-07-15] MEDS: ZOFRAN 4 MG IV ×3 (05:05→20:08)
[2024-07-15] MEDS: DILAUDID 0.5 MG IV (05:06)
[2024-07-15] MEDS: OMNIPAQUE 50 ML PO (05:11)
[2024-07-15] MEDS: DILAUDID 0.25 MG IV ×4 (07:40→20:01)
--- NOTE | 2024-07-15 08:06 | HPS.HSE ---
Family Physician
-
Family Physician: Michael Vargas
Chief Complaint
-
Abd pain
History of Present Illness
HPI: 58 year old female with PMH of chronic abdominal pain, s/p PEG and ileostomy, HLD, DM, cervical cancer, CVA, CAD/RI, CKD; presented to the ED with abdominal pain x 1 day. Pain started after she woke up in the morning, diffuse in nature. Patient
also admitted to her ileostomy bag not producing anything.
Patient endorsed to vomiting multiple times throughout the day. Denies to other symptoms.
Medical History
Past Medical History
Past Medical History: Reports Other
Additional Past Medical History:
ASCVD (PAD, CVA, CAD)
DM II
CKD 3B
Rheumatoid Arthritis
COPD
RACHEL
Peripheral neuropathy due to chemotherapy
Chronic pain syndrome/chronic opioid dependence
Radiation colitis
Cervical cancer -treated with radiation and chemotherapy
Nephrolithiasis
Chronic thrombocytopenia
Fibromyalgia
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
Parotid Mass
Hypothyroidism
Past Surgical History: Reports Other
Additional Past Surgical History:
Bowel resection and colostomy due to colon perforation
Colostomy Revision x 4 and ultimate Ileostomy (2021)
G-tube Placement
Hemiglossectomy & parotidectomy
Multiple Digital Amputations
Social History
Alcohol: None
Drug: None
Family History
Family History: Not pertinent
Allergies / Home Medications
Allergies reflects when Allergies were last updated in [facility].
Home Medications with original date entered in [facility]
Allergy/Medication List:
Medications on admission are unable to be verified or confirmed at this time.
Review of Systems
-
Abdomen/GI: Reports See HPI, Abdominal Pain, Nausea and Vomiting
Physical Exam
Vital Signs
Vital Signs
Temp Pulse Resp BP Pulse Ox
36.7 C 81 22 132/76 92
07/15/24 01:23 07/15/24 07:45 07/15/24 07:45 07/15/24 07:35 07/15/24 07:45
Physical Exam
General: Pain, Appears Chronically Ill and Other (chronic dysarthric)
Respiratory: Clear and Non Labored Respirations; No Accessory Resp Muscle Use
Cardiac: S1/S2 and Regular Rhythm
GI: Tender, Peg Tube, Ostomy and Other (decreased bowel sound )
Psych: Calm and Intact Judgment/Insight (somewhat)
Laboratory Results
-
07/15/24 03:37
07/15/24 03:37
Laboratory Results
Total Bilirubin 0.6 mg/dl (0.2-1.3) 07/15/24 03:37
AST 20 U/L (14-36) 07/15/24 03:37
ALT 18 U/L (0-35) 07/15/24 03:37
Alkaline Phosphatase 93 U/L (38-126) 07/15/24 03:37
Lipase 73 U/L (23-300) 07/15/24 03:37
Data Reviewed
-
Lab Data: Labs Reviewed by me
Impression/Plan
-
HPI: 58 year old female with PMH of chronic abdominal pain, s/p PEG and ileostomy, HLD, DM, cervical cancer, CVA, CAD/RI, CKD; presented to the ED with abdominal pain x 1 day. Pain started after she woke up in the morning, diffuse in nature. Patient
also admitted to her ileostomy bag not producing anything.
Patient endorsed to vomiting multiple times throughout the day. Denies to other symptoms.
A/P:
# Abdominal pain
# h/o SBO
CT AP prelim read noted SBO vs possible ischemia, follow formal report
keep NPO with gentle IVF
PEG placed to suction.
IV Dilaudid PRN for pain control
Zofran PRN
Zofran PRN
GS CS
# ASCVD with h/o CVA, PAD, CAD
# Right Hemiparesis 2/2 CVA
# Dysarthria
Hold all [employer]PER[employer] PO meds
# CKD III
SCr at 1.8 on admission, which is at / near known baseline.
# Chronic Aspiration/Dysphagia
NPO with IVF for now
Previously recc by [facility] for IDDSI Level 6 Soft and Bite size diet and Mildly-thick liquids
# Hypothyroidism
Could cont IV T4 supplementation if unable to tolerate PO for several days
# Chronic Pain / Fibromyalgia- Stable.
IV narcotic while NPO
# Peripheral Neuropathy secondary to chemotherapy for cervical cancer
# s/p Partial Glossectomy
# Diet-Controlled DM-II, Stable.
DVT Prophylaxis: Heparin Subcut
Code Status: DNR, confirmed with pt
--- NOTE | 2024-07-15 10:58 | CON.GS ---
Addendum entered and electronically signed by Dioni Tapia MD 07/15/24 12:18:
Patient seen and examined. Agree with assessment plan as documented below.
Patient is a 58 yo F with a complex past surgical and medical history including obesity, chronic opioid dependence, TIA/CVA (on DAPT, LD 10/ AM), cervical cancer s/p open hysterectomy complicated by colonic perforation s/p diverting loop colostomy
and neoadjuvant chemo XRT s/p completion colectomy with end ileostomy complicated by parastomal hernia s/p reciting of end ileostomy to left abdomen and most recently s/p open ventral incisional hernia repair with unilateral TAR and 2003 by
[facility]. She presents with abdominal pain and distention. She notes decreased ostomy output. No clear dietary indiscretion. History somewhat limited due to patient cognitive status. Currently she states that she is mildly improved.
Gen: NAD
Abd: soft, mild/moderate tenderness, distended, non-peritoneal, G-tub with light non-bilious output, ostomy PPV with thick light brown stool in appliance
Labs and CT scan imaging were reviewed.
Patient is a 58 yo F p/w partial SBO likely secondary to adhesions, complicated by dysmotility secondary to enteritis and narcotic dependent ileus.
No plans or indication for surgical intervention. Clinically and radiographically no signs of ischemia or bowel perforation. Given her extensive surgical and medical history will try to avoid an operation at all costs. Would hold Plavix for now
until with consistent return of bowel function. Will questions answered.
-- No plans for surgery
-- NPO, IVF
-- G-tube clamped, can drain to gravity for symptoms
-- Repeat X-ray in AM
-- Hold Plavix
-- Minimize narcotics
Original Note:
Consultation
-
Date/Time Consultation Requested: 07/15/2024
Date/Time Consultation Performed: 07/15/2024
Requesting Provider: Dr. Estefany Cardona
Performing Provider: Dr. Parrish Hawkins, Dr. Dioni Tapia
Reason for Consultation: SBO
Medical History
-
Chief Complaint: Nausea, Vomiting
History of Present Illness:
58 yo female with a PMHx of multiple intraabdominal surgeries including colostomy convert to ileostomy (2020), right open incisional hernia repair with mesh (2021), abdominal radiation for treatment of uterine cancer, renal stent placement &
removal, multiple orthopedic surgeries, history of TIA/Stroke (on DAPT, last dose 07/15 in the AM), hyperlipidemia, RACHEL, tobacco use, chronic opioid dependence, who presented to the ED with symptoms of nausea, vomiting and abdominal pain.
She states that around 7am this morning she began to have abdominal pain and nausea, after which she had several episodes of NBNB vomiting. She also noticed a lack of output in her ileostomy bag. She denies any recent changes in medication, changes
in diet. Her last meal was the night before the onset of symptoms.
In the ED, she received dilaudid for pain and IV zofran for nausea. At present she has some nausea and abdominal pain which is improved since admission.
Past Medical History
Past Medical History: CAD, Cancer, COPD, CVA, Hypercholesterolemia, NIDDM and Renal Failure
Past Surgical History: Bowel Resection, Gynecological, Hernia Repair and Urological
Social History
Tobacco: Smoker
Alcohol: None
Drug: None
Personal:
Living: Fpc
Employment: Not Employed
Family History
Family History: CAD (Father)
Allergies / Home Medications
Allergy/AdvReac Type Severity Reaction Status Date / Time
adhesive Allergy TAPE-rash Verified 07/15/24 01:22
and itching
infliximab [From Remicade] Allergy Anaphylaxis Verified 07/15/24 01:22
latex Allergy Rash, Verified 07/15/24 01:22
itching,
Hives
Penicillins Allergy Unknown, Verified 07/15/24 01:22
tolerated
amoxicillin
and
ampicillin
in the past
Sulfa (Sulfonamide Allergy Hives, rash Verified 07/15/24 01:22
Antibiotics)
�Medication �Instructions �Recorded �Confirmed �Type
clopidogrel 75 mg tablet (Plavix) 75 mg PO DAILY CAD 06/25/23 07/15/24 History
acetaminophen 325 mg tablet 650 mg PO Q4HPRN PRN mild 01/22/24 07/15/24 History
pain/temp>100F
atorvastatin 40 mg tablet 40 mg PO HS 01/22/24 07/15/24 History
buspirone 5 mg tablet 10 mg PO BID 01/22/24 07/15/24 History
cholecalciferol (vitamin D3) 25 25 mcg PO DAILY 01/22/24 07/15/24 History
mcg (1,000 unit) tablet (Vitamin
D3)
gabapentin 300 mg capsule 300 mg PO TID 01/22/24 07/15/24 History
guaifenesin 600 mg tablet, 600 mg PO BID 01/22/24 07/15/24 History
extended release 12 hr
loratadine 10 mg tablet 10 mg PO DAILY 01/22/24 07/15/24 History
melatonin 5 mg tablet 5 mg PO HS 01/22/24 07/15/24 History
sodium bicarbonate 650 mg tablet 650 mg PO Q8H 01/22/24 07/15/24 History
sodium phosphates 19 gram-7 118 ml IN DAILYPRN PRN if dulcolax 01/22/24 07/15/24 History
gram/118 mL enema (Fleet Enema) is ineffective after 24hrs
pantoprazole 40 mg granules 40 mg PO DAILY #30 ea 07/01/24 07/15/24 Rx
delayed-release for susp in packet
amlodipine 5 mg tablet (Norvasc) 5 mg PO DAILY 07/15/24 07/15/24 History
aspirin 81 mg chewable tablet 81 mg PO DAILY 07/15/24 07/15/24 History
bisacodyl 10 mg rectal suppository 10 mg IN DAILYPRN PRN if no bm 07/15/24 07/15/24 History
(Dulcolax (bisacodyl)) aftr mom
diclofenac sodium 1 % topical gel 2 g topical TID left shoulder 07/15/24 07/15/24 History
famotidine 20 mg tablet 20 mg PO HS 07/15/24 07/15/24 History
hydrocodone 5 mg-acetaminophen 325 1 tab PO Q4HPRN PRN moderate to 07/15/24 07/15/24 History
mg tablet severe pain
levothyroxine 75 mcg tablet 75 mcg PO DAILY 07/15/24 07/15/24 History
(Synthroid)
lidocaine 5 % topical patch 1 patch topical DAILY left shoulder 07/15/24 07/15/24 History
loperamide 2 mg tablet 2 mg PO Q6HPRN PRN diarrhea 07/15/24 07/15/24 History
magnesium hydroxide 400 mg/5 mL 2,400 mg PO [id number] PRN 07/15/24 07/15/24 History
oral suspension (Milk of Magnesia) constipation
venlafaxine 225 mg tablet,extended 225 mg PO DAILY 07/15/24 07/15/24 History
release 24 hr
Review of Systems
-
History Source: Patient
All other systems: Negative unless noted
Constitutional: No Symptoms
EENT: No Symptoms
Respiratory: No Symptoms
Cardiac: No Symptoms
Abdomen/GI: Abdominal Pain, Nausea and Vomiting
: Incontinence
Musculoskeletal: No Symptoms
Skin: No Symptoms
Neurological: No Symptoms
Endocrine: No Symptoms
Hematologic/Lymphatic: No Symptoms
A 10 point review of systems was completed, and was negative except as per HPI.
Physical Exam
Vital Signs
Temp Pulse Resp BP Pulse Ox
98.0 F 79 18 143/76 95
07/15/24 01:23 07/15/24 10:30 07/15/24 10:30 07/15/24 10:00 07/15/24 10:30
07/14/24 07/15/24 07/16/24
06:59 06:59 06:59
Actual Weight 92.6 kg
Body Mass Index (BMI) 31.0
Lab Results
07/15/24 03:37
07/15/24 03:37
WBC 9.2 10^3/uL (4.8-10.8) 07/15/24 03:37
Hgb 10.7 g/dL (12.0-16.0) L 07/15/24 03:37
Hct 32.9 % (37.0-47.0) L 07/15/24 03:37
Plt Count 139 10^3/uL (130-400) 07/15/24 03:37
Physical Exam
General: Well Developed and Well Nourished
Respiratory: Clear
Cardiac: S1/S2 and Regular Rhythm
Breast: Deferred by me
GI: Soft, Non Distended, Tender and Other (Ileostomy with minimal liquid feces. PEG tube clamped with clear fluid in the tubing. )
Rectal: Deferred by Provider
Musculoskeletal: No Clubbing, No Cyanosis and No Edema
Neuro: Awake, Alert and Oriented
Psych: Calm
Assessment / Plan
-
58 yo F with Nausea/Vomiting/Abdominal pain x1 day
##SBO likely caused by intraabdominal adhesions secondary to radiation/multiple prior surgeries vs Ileus
- CT demonstrates a lack of contrast movement beyond the duodenum and a possible malrotation of SI, read suggestive of developing moderate SBO vs ileus
- There is some output from the ostomy site
- C/w IVF, pain control with Dilaudid prn (avoiding NSAIDs due to renal function), IV Zofran prn for nausea
- Continue to hold plavix
- Will manage conservatively at this time considering surgical risk
- Leave PEG tube clamped, NPO for tonight, re-evaluate in the AM and likely advance to clears
[2024-07-15] MEDS: HEPARIN 5000 UNITS SC (15:39)
[2024-07-16] MEDS: HEPARIN 5000 UNITS SC ×3 (00:35→16:01)
[2024-07-16] MEDS: DILAUDID 0.25 MG IV ×5 (00:35→21:35)
[2024-07-16 03:15] VITALS: BP 158/76
[2024-07-16] MEDS: NSS 1000 IV (06:03)
[2024-07-16 06:13] LABS: Hematocrit 30.6 % (37.0-47.0); Hemoglobin 9.8 g/dL (12.0-16.0); Mean Corpuscular Hgb 29.2 pg (27.0-31.0); Mean Corpuscular Volume 91.1 fL (81.0-99.0); Mean Platelet Volume 9.2 fL (7.4-10.4); Platelet Count 113 10^3/uL (130-400); Red Blood Cell Count 3.36 10^6/uL (4.20-5.40); Red Cell Dist. Width 14.4 % (11.5-14.5); White Blood Cell Count 8.8 10^3/uL (4.8-10.8)
[2024-07-16 06:56] LABS: Blood Urea Nitrogen 51 mg/dl (7-17); Calcium 9.3 mg/dl (8.4-10.2); Carbon Dioxide 18 mmol/L (22-30); Chloride 108 mmol/L (98-107); Estimated Creatinine Clearance 36 ml/min; Glucose 100 mg/dl (70-99); Sodium 144 mmol/L (135-145); eGFR 28.42
[2024-07-16 07:00] VITALS: BP 164/94
--- NOTE | 2024-07-16 09:57 | W.PN.HOSP.TC ---
Today's Communication/Plan
-
see A/P
Assessment / Plan
Assessment / Plan
HPI: 58 year old female with PMH of chronic abdominal pain, s/p PEG and ileostomy, HLD, DM, cervical cancer, CVA, CAD/[place], CKD; presented to the ED with abdominal pain x 1 day. Pain started after she woke up in the morning, diffuse in nature. Patient
also admitted to her ileostomy bag not producing anything.
Patient endorsed to vomiting multiple times throughout the day. Denies to other symptoms.
A/P:
# Abdominal pain
# h/o SBO
CT AP noted developing moderate small bowel obstruction versus ileus- New.
keep NPO with gentle IVF, cont to hold PO meds
GS on board, No plans for surgery, G-tube clamped, drain to gravity for symptoms
Follow up AXR noted Paucity of bowel gas which may be due to fluid-filled bowel. No discrete gaseous distention of the bowel.
Pain control with IV Dilaudid PRN, Minimize narcotics if able
IV PPI added GI protection
Zofran PRN
# overnight hypoxia
Pt was placed on 3L NC overnight, can check nocturnal pulse Ox for HS O2 need
# ASCVD with h/o CVA, PAD, CAD
# Right Hemiparesis 2/2 CVA
# Dysarthria
Hold all [employer] PO meds
# CKD III
SCr at 1.8 -> 2.0
Cont gentle IVF
# Chronic Aspiration/Dysphagia
NPO with IVF for now
Previously recc by [facility] for IDDSI Level 6 Soft and Bite size diet and Mildly-thick liquids
# Hypothyroidism
Could cont IV T4 supplementation if unable to tolerate PO for several days
# Chronic Pain / Fibromyalgia- Stable.
[employer] on hydrocodone-Tylenol
IV narcotic while NPO
# Peripheral Neuropathy secondary to chemotherapy for cervical cancer
# s/p Partial Glossectomy
# Diet-Controlled DM-II, Stable.
DVT Prophylaxis: Heparin Subcut
Code Status: DNR, confirmed with pt
DW RN
Anticipated Discharge: > 48 hours
Subjective/Interval History
-
Date of Service: July 16, 2024
Objective Data
-
Labs:
Laboratory Results
07/16/24
05:55
WBC 8.8
Hgb 9.8 L
Hct 30.6 L
Plt Count 113 L
Sodium 144
Potassium 4.0
Chloride 108 H
Carbon Dioxide 18 L
BUN 51 H
Creatinine 2.0 H
Glucose 100 H
Calcium 9.3
Vital Signs:
Vital Signs
Temp Pulse Resp BP Pulse Ox
36.4 C 82 18 164/94 99
07/16/24 07:00 07/16/24 07:00 07/16/24 07:00 07/16/24 07:00 07/16/24 07:00
I&O
07/15/24 07/16/24 07/17/24
06:59 06:59 06:59
Intake Total 720 / 720
Output Total 800 / 800 1325 / 1325
Balance -800 / -800 -605 / -605
Review of Systems
-
All other systems: Reviewed and negative
Physical Exam
-
General: Comfortable, Slurred Speech (chronic slurred speech) and Appears Chronically Ill
HEENT: Normocephalic, Atraumatic and Oxygen (4L NC placed overnight )
Respiratory: Clear to Auscultation and Non Labored Respirations; Negative Wheezes or Rhonchi
Cardiac: Regular Rhythm and S1/S2; Negative Murmur
GI: Soft, Nondistended, Tender, Peg Tube and Ostomy
Musculoskeletal: No Clubbing, No Cyanosis and No Edema
Neuro: Awake, Alert and Other (right hemiplegia)
Psych: Calm
Data Reviewed
-
Diagnostic Radiology: Report Reviewed by me
CT Scan: Report Reviewed by me
Labs: Labs Reviewed by me
[2024-07-16] MEDS: PROTONIX IV 40 MG IV (10:48)
[2024-07-16] MEDS: NSS (PRESERVATIVE FREE) 10 ML IV (10:48)
--- NOTE | 2024-07-16 10:56 | CM ---
Patient seen at bedside. Patient is LTC with [facility] and per admissions at [facility] patient is dependent for many activities and is mod a for transfers. Patient is not ambulatory. Patient is a bed hold. CM will continue to follow for
discharge planning needs.
Plan; return to [facility] when medically appropriate.
[2024-07-16 11:00] VITALS: BP 160/83
--- NOTE | 2024-07-16 14:55 | W.PN.GS2 ---
Today's Communication / Plan
-
Start clears
Assessment / Plan
-
58F with resolving pSBO 2/2 adhesions
AFVSS, stoma functioning with >1L output since admit, denies n/v
Labs unremarkable
Plan:
Start Clears
PRN pain meds and anti emetics
No plan for surgical intervention
All other care as per primary team
Subjective Data
-
Date of Service: July 16, 2024
AFVSS, feeling better but mild abd pain persists, denies n/v
Objective Data
-
Intake and Output
07/15/24 07/16/24 07/17/24
06:59 06:59 06:59
Intake Total 720 / 720
Output Total 800 / 800 1325 / 1325
Balance -800 / -800 -605 / -605
Intake:
IV piggybacks 720 / 720
Output:
Liquid stool amount 700 / 700 875 / 875
Colostomy 700 / 700 875 / 875
Urine, Voided 100 / 100 450 / 450
Vital Signs
Temp Pulse Resp BP Pulse Ox
97.5 F 80 18 160/83 98
07/16/24 11:00 07/16/24 11:00 07/16/24 11:00 07/16/24 11:00 07/16/24 11:00
Lab Results
07/16/24 05:55
07/16/24 05:55
Calcium 9.3 mg/dl (8.4-10.2) 07/16/24 05:55
Magnesium 2.0 mg/dl (1.6-2.3) 07/16/24 05:55
Total Bilirubin 0.6 mg/dl (0.2-1.3) 07/15/24 03:37
AST 20 U/L (14-36) 07/15/24 03:37
ALT 18 U/L (0-35) 07/15/24 03:37
Alkaline Phosphatase 93 U/L (38-126) 07/15/24 03:37
Total Protein 8.1 g/dl (6.3-8.2) 07/15/24 03:37
Albumin 4.2 g/dl (3.5-5.0) 07/15/24 03:37
Physical Exam
-
Gen: NAD
Abd: soft, mild ttp to midline at level of stoma, stoma PPV with air and liquid stool in bag
[2024-07-16 15:00] VITALS: BP 153/80
[2024-07-16 19:30] VITALS: BP 152/72
[2024-07-16] MEDS: ZOFRAN 4 MG IV (21:34)
[2024-07-16 23:41] VITALS: BP 124/69
[2024-07-17] MEDS: HEPARIN 5000 UNITS SC ×4 (00:55→23:50)
[2024-07-17] MEDS: NSS IV (01:00)
[2024-07-17] MEDS: DILAUDID 0.25 MG IV ×6 (02:11→20:52)
[2024-07-17 03:41] VITALS: BP 130/71
[2024-07-17 06:28] VITALS: BMI 30.8
[2024-07-17 06:53] LABS: Hematocrit 29.4 % (37.0-47.0); Hemoglobin 9.4 g/dL (12.0-16.0); Mean Corpuscular Hgb 28.6 pg (27.0-31.0); Mean Corpuscular Volume 89.4 fL (81.0-99.0); Platelet Count 151 10^3/uL (130-400); Red Blood Cell Count 3.29 10^6/uL (4.20-5.40); Red Cell Dist. Width 14.5 % (11.5-14.5)
[2024-07-17 07:18] LABS: Blood Urea Nitrogen 45 mg/dl (7-17); Calcium 9.7 mg/dl (8.4-10.2); Carbon Dioxide 16 mmol/L (22-30); Chloride 105 mmol/L (98-107); Estimated Creatinine Clearance 36 ml/min; Glucose 112 mg/dl (70-99); Potassium 3.7 mmol/L (3.5-5.1); Sodium 138 mmol/L (135-145); eGFR 28.42
[2024-07-17] MEDS: NSS (PRESERVATIVE FREE) 10 ML IV (07:25)
[2024-07-17] MEDS: PROTONIX IV 40 MG IV (07:25)
[2024-07-17] MEDS: NSS 1000 IV (07:26)
[2024-07-17 08:08] VITALS: BP 158/74
--- NOTE | 2024-07-17 08:55 | W.PN.HOSP.TC ---
Addendum entered and electronically signed by Estefany Cardona MD 07/17/24 13:02:
# CKD 3 only
Original Note:
Today's Communication/Plan
-
see AP
Assessment / Plan
Assessment / Plan
HPI: 58 year old female with PMH of chronic abdominal pain, s/p PEG and ileostomy, HLD, DM, cervical cancer, CVA, CAD/[place], CKD; presented to the ED with abdominal pain x 1 day. Pain started after she woke up in the morning, diffuse in nature. Patient
also admitted to her ileostomy bag not producing anything.
Patient endorsed to vomiting multiple times throughout the day. Denies to other symptoms.
A/P:
# Abdominal pain
# h/o SBO
CT AP noted developing moderate small bowel obstruction versus ileus- New.
GS on board, No plans for surgery, G-tube clamped, drain to gravity for symptoms
Follow up AXR noted Paucity of bowel gas which may be due to fluid-filled bowel. No discrete gaseous distention of the bowel.
NPO -> Clears per GS
resume some PO [employer] meds
Cont gentle IVF
Pain control with IV Dilaudid PRN, Minimize narcotics if able
IV PPI added GI protection
Zofran PRN
# overnight hypoxia
Pt was placed on 3L NC overnight, nocturnal pulse Ox confirmed nocturnal hypoxia
cont O2 support at night time
# ASCVD with h/o CVA, PAD, CAD
# Right Hemiparesis 2/2 CVA
# Dysarthria
resume [employer] ASA/plavix
# HTN
resume [employer] Norvasc with holding parameter
# CKD III
SCr at 1.8 -> 2.0
Cont gentle IVF
# Chronic Aspiration/Dysphagia
NPO with IVF for now
Previously recc by [facility] for IDDSI Level 6 Soft and Bite size diet and Mildly-thick liquids
# Hypothyroidism
resume [employer] Synthroid
# Chronic Pain / Fibromyalgia- Stable.
[employer] on hydrocodone-Tylenol
IV narcotic for severe pain
# Peripheral Neuropathy secondary to chemotherapy for cervical cancer
# s/p Partial Glossectomy
# Diet-Controlled DM-II, Stable.
DVT Prophylaxis: Heparin Subcut
Code Status: DNR, confirmed with pt
DW RN
Anticipated Discharge: > 48 hours
Subjective/Interval History
-
Date of Service: July 17, 2024
Objective Data
-
Labs:
Laboratory Results
07/17/24
06:19
WBC 10.0
Hgb 9.4 L
Hct 29.4 L
Plt Count 151 D
Sodium 138
Potassium 3.7
Chloride 105
Carbon Dioxide 16 L
BUN 45 H
Creatinine 2.0 H
Glucose 112 H
Calcium 9.7
Vital Signs:
Vital Signs
Temp Pulse Resp BP Pulse Ox
36.7 C 68 18 158/74 97
07/17/24 08:08 07/17/24 08:08 07/17/24 08:08 07/17/24 08:08 07/17/24 08:08
I&O
07/16/24 07/17/24 07/18/24
06:59 06:59 06:59
Intake Total 1000 / 1000
Output Total 800 / 800 2325 / 2325
Balance -800 / -800 -1325 / -1325
Review of Systems
-
All other systems: Reviewed and negative
Physical Exam
-
General: No Apparent Distress, Comfortable, Slurred Speech (chronic slurred speech) and Appears Chronically Ill
HEENT: Normocephalic, Atraumatic and Oxygen (4L NC placed overnight )
Respiratory: Clear to Auscultation and Non Labored Respirations; Negative Accessory Resp Muscle Use
Cardiac: Regular Rhythm and S1/S2; Negative Murmur
GI: Soft, Nontender, Nondistended, Peg Tube and Ostomy
Musculoskeletal: No Clubbing, No Cyanosis and No Edema
Neuro: Awake, Alert and Other (right hemiplegia)
Psych: Calm
Data Reviewed
-
Diagnostic Radiology: Report Reviewed by me
CT Scan: Report Reviewed by me
Labs: Labs Reviewed by me
[2024-07-17] MEDS: PLAVIX 75 MG PO (10:41)
[2024-07-17] MEDS: NORVASC 5 MG PO (10:41)
[2024-07-17] MEDS: SYNTHROID 75 MCG PO (10:41)
[2024-07-17] MEDS: LOW STRENGTH ASPIRIN 81 MG PO (10:46)
--- NOTE | 2024-07-17 11:53 | CM ---
Patient stated that she was in pain, nursing updated. Plan is for transition to [facility] when medically appropriate. Patient is a long-term bed at SNF. CM will continue to follow for discharge planning needs.
Plan; return to SNF
[2024-07-17 12:20] VITALS: BP 107/57
--- NOTE | 2024-07-17 12:38 | PN.CDI ---
CDI
- -
CDI:
Physician Documentation Request
Admit Date: 07/15/24 08:56
Dear Doctor Brendan,
Please review the following and provide your response in the progress notes.
Clinical Indicators:
Pt admitted with PSBO 2/2 adhesions
Documented per progress notes07/16/ & 07/17 , ' CKD III SCr at 1.8 -> 2.0 Cont gentle IVF.'
Documented per previous visit 02/14/23 Nephrology note, ' CKD 3B (creatinine 1.5 mg/DL December 01, 2022)...'
07/15/24 07/16/24 07/17/24
03:37 05:55 06:19
Creatinine 1.8 H 2.0 H 2.0 H
Please clarify which of the following accurately represents the patient's renal status:
RHETT on CKD 3
CKD 3 only
Other ( please specify)
Criteria for RHETT*
1 Increase in serum creatinine by > or = to 0.3 mg/dL (> or = to 26.5 micromol/L) within 48 hours, OR
2 Increase in serum creatinine to > or = to 1.5 times baseline, which is known or presumed to have occurred within 7 days, OR
3 Urine volume < 0.5 nL/kg/hour for six hours
Use of terms such as suspected, likely, concern for, or probable (associated with a specific diagnosis that is being evaluated, monitored, or treated as if it exists) are acceptable and can be coded in the inpatient setting, when documented at the
time of discharge.
Thank you,
Sue Ayala RN
CDI Specialist
[facility]
Please use your independent medical judgment in providing your response.
*Source: Kidney Disease: Improving Global Outcomes (KDIGO) 2012
[2024-07-17 16:52] VITALS: BP 100/54
[2024-07-17] MEDS: ZOFRAN 4 MG IV (17:35)
--- NOTE | 2024-07-17 17:51 | W.PN.GS2 ---
Today's Communication / Plan
-
`
Assessment / Plan
-
58F with clinically resolving pSBO 2/2 adhesions
AFVSS, stoma functioning but reports pain
Plan: holding on clears, if persistent pain consider repeat imaging tomorrow with oral contrast
if improving abd pain and ostomy continues to appear to function well then advance diet
Subjective Data
-
Date of Service: July 17, 2024
pt seen and examined
c/o abdominal pain
no vomiting
some nausea with clears
ostomy functioning
Objective Data
-
Intake and Output
07/16/24 07/17/24 07/18/24
06:59 06:59 06:59
Intake Total 1000 / 1000
Output Total 800 / 800 2325 / 2325
Balance -800 / -800 -1325 / -1325
Intake:
Oral fluids 280 / 280
IV piggybacks 720 / 720
Output:
Liquid stool amount 700 / 700 875 / 875
Colostomy 700 / 700 875 / 875
Urine, Voided 100 / 100 1450 / 1450
Vital Signs
Temp Pulse Resp BP Pulse Ox
98.3 F 55 18 100/54 93
07/17/24 16:52 07/17/24 16:52 07/17/24 16:52 07/17/24 16:52 07/17/24 16:52
Lab Results
07/17/24 06:19
07/17/24 06:19
Calcium 9.7 mg/dl (8.4-10.2) 07/17/24 06:19
Magnesium 2.0 mg/dl (1.6-2.3) 07/17/24 06:19
Total Bilirubin 0.6 mg/dl (0.2-1.3) 07/15/24 03:37
AST 20 U/L (14-36) 07/15/24 03:37
ALT 18 U/L (0-35) 07/15/24 03:37
Alkaline Phosphatase 93 U/L (38-126) 07/15/24 03:37
Total Protein 8.1 g/dl (6.3-8.2) 07/15/24 03:37
Albumin 4.2 g/dl (3.5-5.0) 07/15/24 03:37
Physical Exam
-
NAD AAOx3
ABD: soft, mild generalized tenderness
ileostomy with liquid stool
[2024-07-17 19:31] VITALS: BP 103/52
[2024-07-17 23:35] VITALS: BP 105/57
[2024-07-18 03:04] VITALS: BP 112/60
[2024-07-18] MEDS: NSS 1000 IV (03:09)
[2024-07-18] MEDS: DILAUDID 0.25 MG IV ×7 (03:09→23:08)
[2024-07-18] MEDS: SYNTHROID 75 MCG PO (06:15)
[2024-07-18 06:38] LABS: Blood Urea Nitrogen 46 mg/dl (7-17); Calcium 9.3 mg/dl (8.4-10.2); Carbon Dioxide 16 mmol/L (22-30); Chloride 107 mmol/L (98-107); Estimated Creatinine Clearance 30 ml/min; Glucose 90 mg/dl (70-99); Hematocrit 24.7 % (37.0-47.0); Hemoglobin 8.2 g/dL (12.0-16.0); Magnesium 1.9 mg/dl (1.6-2.3); Mean Corp Hgb Conc. 33.2 g/dL (33.0-37.0); Mean Corpuscular Hgb 30.1 pg (27.0-31.0); Mean Corpuscular Volume 90.8 fL (81.0-99.0); Mean Platelet Volume 8.8 fL (7.4-10.4); Platelet Count 116 10^3/uL (130-400); Potassium 3.5 mmol/L (3.5-5.1); Red Blood Cell Count 2.72 10^6/uL (4.20-5.40); Red Cell Dist. Width 14.5 % (11.5-14.5); Sodium 137 mmol/L (135-145); White Blood Cell Count 7.6 10^3/uL (4.8-10.8); eGFR 22.84
[2024-07-18 07:50] VITALS: BP 110/56
[2024-07-18] MEDS: HEPARIN 5000 UNITS SC ×2 (08:05→14:47)
[2024-07-18] MEDS: NORVASC 5 MG PO (08:05)
[2024-07-18] MEDS: PLAVIX 75 MG PO (08:05)
[2024-07-18] MEDS: PROTONIX IV 40 MG IV (08:05)
[2024-07-18] MEDS: NSS (PRESERVATIVE FREE) 10 ML IV (08:05)
[2024-07-18] MEDS: LOW STRENGTH ASPIRIN 81 MG PO (08:05)
--- NOTE | 2024-07-18 09:39 | W.PN.GS2 ---
Today's Communication / Plan
-
Small bowel follow-through
Assessment / Plan
-
58F history of stroke with reported paraplegia and states she is bedbound. She is on dual antiplatelet therapy, and her history is significant for cervical cancer status post open hysterectomy and colonic perforation with diverting loop colostomy
then converted to total colectomy with end ileostomy that has been resited. She presented to our hospital on 07/15/2024 with abdominal pain and found to have a partial small bowel obstruction secondary to adhesions in the setting of possible
?dysmotility, ?enteritis, and narcotic dependent ileus.
Small bowel follow-through with Omnipaque ordered. Okay to give this through the PEG tube.
Okay for sips and chips.
Continue holding Plavix, advised narcotics
Can vent G-tube as able
Time Spent
Total Time Spent with Patient (in minutes): 30
Subjective Data
-
Date of Service: July 18, 2024
Interval Events:
No acute events overnight. Slept well. Pain controlled but pretty much the same. Endorses some nausea, denies vomiting. +bowel function. Tolerating sips.
Objective Data
-
Intake and Output
07/17/24 07/18/24 07/19/24
06:59 06:59 06:59
Intake Total 1000 / 1000
Output Total 2325 / 2325 1250 / 1250
Balance -1325 / -1325 -1250 / -1250
Intake:
Oral fluids 280 / 280
IV piggybacks 720 / 720
Output:
Liquid stool amount 875 / 875 650 / 650
Colostomy 875 / 875
Ileostomy 650 / 650
Urine, Voided 1450 / 1450 600 / 600
Vital Signs
Temp Pulse Resp BP Pulse Ox
97.7 F 60 16 110/56 95
07/18/24 07:50 07/18/24 07:50 07/18/24 07:50 07/18/24 07:50 07/18/24 07:50
Lab Results
07/18/24 05:38
07/18/24 05:38
Calcium 9.3 mg/dl (8.4-10.2) 07/18/24 05:38
Magnesium 1.9 mg/dl (1.6-2.3) 07/18/24 05:38
Total Bilirubin 0.6 mg/dl (0.2-1.3) 07/15/24 03:37
AST 20 U/L (14-36) 07/15/24 03:37
ALT 18 U/L (0-35) 07/15/24 03:37
Alkaline Phosphatase 93 U/L (38-126) 07/15/24 03:37
Total Protein 8.1 g/dl (6.3-8.2) 07/15/24 03:37
Albumin 4.2 g/dl (3.5-5.0) 07/15/24 03:37
Physical Exam
-
GENERAL/NEURO: Awake, Alert, no distress
CHEST: Unlabored breathing on RA
ABDOMEN: Soft, Non-Tender, Non-Distended, ostomy pink patent and productive of brown stool. She does have a PEG in place
--- NOTE | 2024-07-18 09:42 | W.PN.HOSP.TC ---
Today's Communication/Plan
-
pt c/o abd pain, would not advance current clear liquid diet
pain control
Assessment / Plan
Assessment / Plan
HPI: 58 year old female with PMH of chronic abdominal pain, s/p PEG and ileostomy, HLD, DM, cervical cancer, CVA, CAD/[place], CKD; presented to the ED with abdominal pain x 1 day. Pain started after she woke up in the morning, diffuse in nature. Patient
also admitted to her ileostomy bag not producing anything.
Patient endorsed to vomiting multiple times throughout the day. Denies to other symptoms.
A/P:
# Abdominal pain
# h/o SBO
CT AP noted developing moderate small bowel obstruction versus ileus- New.
GS on board, No plans for surgery, G-tube clamped, drain to gravity for symptoms
Follow up AXR noted Paucity of bowel gas which may be due to fluid-filled bowel. No discrete gaseous distention of the bowel.
NPO -> Clears per GS
resume some PO PATTERNMAKER METAL meds
Pain control with IV Dilaudid PRN, Minimize narcotics if able
IV PPI added GI protection
Zofran PRN
# overnight hypoxia
Pt was placed on 3L NC overnight, nocturnal pulse Ox confirmed nocturnal hypoxia
cont O2 support at night time
# Hypokalemia
replete K IV
# ASCVD with h/o CVA, PAD, CAD
# Right Hemiparesis 2/2 CVA
# Dysarthria
resume PATTERNMAKER METAL ASA/plavix
# HTN
resume PATTERNMAKER METAL Norvasc with holding parameter
# CKD III
SCr today at 2.4
Observe off IVF
# Chronic Aspiration/Dysphagia
Clears per GS
Previously recc by [facility] for IDDSI Level 6 Soft and Bite size diet and Mildly-thick liquids
# Hypothyroidism
resume PATTERNMAKER METAL Synthroid
# Chronic Pain / Fibromyalgia- Stable.
PATTERNMAKER METAL on hydrocodone-Tylenol
IV narcotic for severe pain
# Peripheral Neuropathy secondary to chemotherapy for cervical cancer
# s/p Partial Glossectomy
# Diet-Controlled DM-II, Stable.
DVT Prophylaxis: Heparin Subcut
Code Status: DNR, confirmed with pt
DW RN
Anticipated Discharge: > 48 hours
Subjective/Interval History
-
Date of Service: July 18, 2024
Objective Data
-
Labs:
Laboratory Results
07/18/24
05:38
WBC 7.6
Hgb 8.2 L
Hct 24.7 L
Plt Count 116 L D
Sodium 137
Potassium 3.5
Chloride 107
Carbon Dioxide 16 L
BUN 46 H
Creatinine 2.4 H
Glucose 90
Calcium 9.3
Vital Signs:
Vital Signs
Temp Pulse Resp BP Pulse Ox
36.5 C 60 16 110/56 95
07/18/24 07:50 07/18/24 07:50 07/18/24 07:50 07/18/24 07:50 07/18/24 07:50
I&O
07/17/24 07/18/24 07/19/24
06:59 06:59 06:59
Intake Total 1000 / 1000
Output Total 2325 / 2325 1250 / 1250
Balance -1325 / -1325 -1250 / -1250
Review of Systems
-
Abdomen/GI: Reports Abdominal Pain
Physical Exam
-
General: No Apparent Distress, Comfortable, Slurred Speech (chronic slurred speech) and Appears Chronically Ill
HEENT: Normocephalic and Atraumatic
Respiratory: Clear to Auscultation and Non Labored Respirations; Negative Accessory Resp Muscle Use
Cardiac: Regular Rhythm and S1/S2; Negative Murmur
GI: Soft, Nontender, Nondistended, Peg Tube and Ostomy
Musculoskeletal: No Clubbing, No Cyanosis and No Edema
Neuro: Awake, Alert and Other (right hemiplegia)
Psych: Calm
Data Reviewed
-
Diagnostic Radiology: Report Reviewed by me
CT Scan: Report Reviewed by me
Labs: Labs Reviewed by me
--- NOTE | 2024-07-18 10:52 | CM ---
Chart reviewed: Anticipate DC >48 hours; pain management; patient would not advance diet
Referral sent to [facility] via [facility]
Plan: return to [facility] when stable
[2024-07-18 11:33] VITALS: BP 106/56
[2024-07-18] MEDS: ZOFRAN 4 MG IV (12:45)
[2024-07-18] MEDS: KCL 270 MEQ IV (14:47)
[2024-07-18 15:21] VITALS: BMI 30.8
[2024-07-18] MEDS: COMPAZINE 10 MG IV (15:34)
[2024-07-18 15:53] VITALS: BP 147/72
[2024-07-18] MEDS: HEPARIN SC (22:21)
[2024-07-18 23:46] VITALS: BP 118/66
[2024-07-19] MEDS: DILAUDID IV (03:10)
[2024-07-19 03:13] VITALS: BP 120/70
[2024-07-19] MEDS: DILAUDID 0.25 MG IV ×6 (04:01→23:30)
[2024-07-19] MEDS: SYNTHROID 75 MCG PO (05:50)
[2024-07-19 06:17] LABS: Hematocrit 26.5 % (37.0-47.0); Hemoglobin 8.6 g/dL (12.0-16.0); Mean Corp Hgb Conc. 32.5 g/dL (33.0-37.0); Mean Corpuscular Hgb 28.8 pg (27.0-31.0); Mean Corpuscular Volume 88.6 fL (81.0-99.0); Mean Platelet Volume 8.9 fL (7.4-10.4); Platelet Count 130 10^3/uL (130-400); Red Blood Cell Count 2.99 10^6/uL (4.20-5.40); Red Cell Dist. Width 14.3 % (11.5-14.5); White Blood Cell Count 7.3 10^3/uL (4.8-10.8)
[2024-07-19 06:44] LABS: Blood Urea Nitrogen 35 mg/dl (7-17); Calcium 9.6 mg/dl (8.4-10.2); Carbon Dioxide 19 mmol/L (22-30); Chloride 103 mmol/L (98-107); Estimated Creatinine Clearance 30 ml/min; Glucose 106 mg/dl (70-99); Magnesium 1.9 mg/dl (1.6-2.3); Potassium 3.6 mmol/L (3.5-5.1); Sodium 138 mmol/L (135-145); eGFR 22.84
[2024-07-19 07:00] VITALS: BP 127/71
[2024-07-19] MEDS: KCL 270 MEQ IV (08:23)
[2024-07-19] MEDS: HEPARIN 5000 UNITS SC ×2 (08:23→15:17)
[2024-07-19] MEDS: ZOFRAN 4 MG IV ×2 (08:24→17:28)
[2024-07-19] MEDS: NORVASC 5 MG PO (08:24)
[2024-07-19] MEDS: LOW STRENGTH ASPIRIN 81 MG PO (08:24)
[2024-07-19] MEDS: NSS (PRESERVATIVE FREE) 10 ML IV (08:24)
[2024-07-19] MEDS: PROTONIX IV 40 MG IV (08:25)
--- NOTE | 2024-07-19 10:56 | W.PN.HOSP.TC ---
Today's Communication/Plan
-
see A/P
Assessment / Plan
Assessment / Plan
HPI: 58 year old female with PMH of chronic abdominal pain, s/p PEG and ileostomy, HLD, DM, cervical cancer, CVA, CAD/[place], CKD; presented to the ED with abdominal pain x 1 day. Pain started after she woke up in the morning, diffuse in nature. Patient
also admitted to her ileostomy bag not producing anything.
Patient endorsed to vomiting multiple times throughout the day. Denies to other symptoms.
A/P:
# Abdominal pain
# h/o SBO
CT AP noted developing moderate small bowel obstruction versus ileus- New.
GS on board, No plans for surgery, G-tube clamped, drain to gravity for symptoms
Due to persistent nausea and abd pain, small bowel follow through ordered, was incomplete due to vomiting
Follow up AXR noted Nonspecific bowel gas pattern
Cont clears per GS
resumed some PO PEDIATRICIAN MANAGING PARTNER meds
Pain control with IV Dilaudid PRN, Minimize narcotics if able
IV PPI added GI protection
Zofran PRN
# overnight hypoxia
Pt was placed on 3L NC overnight, nocturnal pulse Ox confirmed nocturnal hypoxia
cont O2 support at night time
# Hypokalemia
repleted
# ASCVD with h/o CVA, PAD, CAD
# Right Hemiparesis 2/2 CVA
# Dysarthria
resumed PEDIATRICIAN MANAGING PARTNER ASA
but holding plavix
# HTN
resumed PEDIATRICIAN MANAGING PARTNER Norvasc with holding parameter
# CKD III
SCr today at 2.4
Observe off IVF
# Chronic Aspiration/Dysphagia
Clears per GS
Previously recc by [facility] for IDDSI Level 6 Soft and Bite size diet and Mildly-thick liquids
# Hypothyroidism
resumed PEDIATRICIAN MANAGING PARTNER Synthroid
# Chronic Pain / Fibromyalgia- Stable.
PEDIATRICIAN MANAGING PARTNER on hydrocodone-Tylenol
IV narcotic for severe pain
# Peripheral Neuropathy secondary to chemotherapy for cervical cancer
# s/p Partial Glossectomy
# Diet-Controlled DM-II, Stable.
DVT Prophylaxis: Heparin Subcut
Code Status: DNR, confirmed with pt
Anticipated Discharge: 24 - 48 hours
Subjective/Interval History
-
Date of Service: July 19, 2024
Objective Data
-
Labs:
Laboratory Results
07/19/24
05:31
WBC 7.3
Hgb 8.6 L
Hct 26.5 L
Plt Count 130
Sodium 138
Potassium 3.6
Chloride 103
Carbon Dioxide 19 L
BUN 35 H
Creatinine 2.4 H
Glucose 106 H
Calcium 9.6
Vital Signs:
Vital Signs
Temp Pulse Resp BP Pulse Ox
36.7 C 62 18 127/71 100
07/19/24 07:00 07/19/24 07:00 07/19/24 07:00 07/19/24 07:00 07/19/24 07:00
I&O
07/18/24 07/19/24 07/20/24
06:59 06:59 06:59
Intake Total 240 / 240
Output Total 1250 / 1250 3550 / 3550
Balance -1250 / -1250 -3310 / -3310
Review of Systems
-
Abdomen/GI: Reports Abdominal Pain (mild)
Physical Exam
-
General: No Apparent Distress, Comfortable, Slurred Speech (chronic slurred speech) and Appears Chronically Ill
HEENT: Normocephalic and Atraumatic
Respiratory: Clear to Auscultation and Non Labored Respirations; Negative Accessory Resp Muscle Use
Cardiac: Regular Rhythm and S1/S2; Negative Murmur
GI: Soft, Nontender, Nondistended, Peg Tube and Ostomy
Musculoskeletal: No Clubbing, No Cyanosis and No Edema
Neuro: Awake, Alert and Other (right hemiplegia)
Psych: Calm
Data Reviewed
-
Diagnostic Radiology: Report Reviewed by me
CT Scan: Report Reviewed by me
Labs: Labs Reviewed by me
[2024-07-19 11:00] VITALS: BP 127/85
--- NOTE | 2024-07-19 11:50 | W.PN.CRS1 ---
Today's Communication / Plan
-
Abdominal x-rays
Assessment/Plan
-
58F history of stroke with reported paraplegia and states she is bedbound. She is on dual antiplatelet therapy, and her history is significant for cervical cancer status post open hysterectomy and colonic perforation with diverting loop colostomy
then converted to total colectomy with end ileostomy that has been resited. She presented to our hospital on 07/15/2024 with abdominal pain and found to have a partial small bowel obstruction secondary to adhesions in the setting of possible
?dysmotility, ?enteritis, and narcotic dependent ileus.
-Abdominal x-ray pending
-If she continues with nausea and vomiting and depending on x-ray, she may require an NG tube
-Possible TPN if she is not able to have oral nutrition
Subjective Data
Subjective Data
Date of Service: July 19, 2024
Patient states she feels distended. She has some nausea and vomiting overnight. She also complains of abdominal pain. Her ileostomy does not have that much output.
Objective Data
-
Vital Signs
Temp Pulse Resp BP Pulse Ox
98.1 F 62 18 127/71 100
07/19/24 07:00 07/19/24 07:00 07/19/24 07:00 07/19/24 07:00 07/19/24 07:00
Intake & Output
07/18/24 07/19/24 07/20/24
06:59 06:59 06:59
Intake Total 240 / 240
Output Total 1250 / 1250 3550 / 3550
Balance -1250 / -1250 -3310 / -3310
Intake:
Oral fluids 240 / 240
Output:
Liquid stool amount 650 / 650 3200 / 3200
Ileostomy 650 / 650 3200 / 3200
Urine, Voided 600 / 600 350 / 350
Other:
Number of approximated SMALL 1
amounts of urine
Lab Results
07/19/24 05:31
07/19/24 05:31
Physical Exam
-
General: No Acute Distress and AOx3
Abdomen: Soft, Distended (Mild) and Tender (Mild throughout)
Skin: Warm and Dry
--- NOTE | 2024-07-19 12:05 | PTCARENOTE ---
PT found coughing vigorously after eating jello. pt stated she just was advanced from residential. I took jello away and md notified and liquids changed to thick liquids. . MD ordered speech.
--- NOTE | 2024-07-19 14:04 | PTCARENOTE ---
ileostomy site leaked x2 today and appliance changed . it is leaking towards left lowre quad. skin prep used but not effecgive
[2024-07-19 15:00] VITALS: BP 124/71
--- NOTE | 2024-07-19 18:00 | PTCARENOTE ---
No coughing noted rest of shift
[2024-07-19 19:22] VITALS: BP 108/54
[2024-07-19] MEDS: HEPARIN SC (23:21)
[2024-07-19 23:45] VITALS: BP 109/55
[2024-07-20 03:28] VITALS: BP 119/57
[2024-07-20] MEDS: DILAUDID 0.25 MG IV ×5 (06:07→21:00)
[2024-07-20] MEDS: SYNTHROID 75 MCG PO (06:07)
[2024-07-20 06:14] LABS: Hematocrit 26.3 % (37.0-47.0); Hemoglobin 8.7 g/dL (12.0-16.0); Mean Corp Hgb Conc. 33.1 g/dL (33.0-37.0); Mean Corpuscular Volume 90.7 fL (81.0-99.0); Mean Platelet Volume 8.6 fL (7.4-10.4); Platelet Count 117 10^3/uL (130-400); Red Cell Dist. Width 14.3 % (11.5-14.5); White Blood Cell Count 8.3 10^3/uL (4.8-10.8)
[2024-07-20 06:34] LABS: Blood Urea Nitrogen 30 mg/dl (7-17); Carbon Dioxide 17 mmol/L (22-30); Chloride 106 mmol/L (98-107); Estimated Creatinine Clearance 33 ml/min; Glucose 92 mg/dl (70-99); Magnesium 1.9 mg/dl (1.6-2.3); Potassium 4.1 mmol/L (3.5-5.1); Sodium 138 mmol/L (135-145); eGFR 25.35
[2024-07-20 08:10] VITALS: BP 105/55
[2024-07-20] MEDS: NORVASC 5 MG PO (08:33)
[2024-07-20] MEDS: NSS (PRESERVATIVE FREE) 10 ML IV (08:33)
[2024-07-20] MEDS: PROTONIX IV 40 MG IV (08:33)
[2024-07-20] MEDS: HEPARIN 5000 UNITS SC ×3 (08:33→23:02)
[2024-07-20] MEDS: LOW STRENGTH ASPIRIN 81 MG PO (08:34)
[2024-07-20] MEDS: ZOFRAN 4 MG IV ×2 (10:27→17:38)
[2024-07-20 11:25] VITALS: BP 99/57
--- NOTE | 2024-07-20 12:55 | W.PN.HOSP.TC ---
Today's Communication/Plan
-
see A/P
Assessment / Plan
Assessment / Plan
HPI: 58 year old female with PMH of chronic abdominal pain, s/p PEG and ileostomy, HLD, DM, cervical cancer, CVA, CAD/[place], CKD; presented to the ED with abdominal pain x 1 day. Pain started after she woke up in the morning, diffuse in nature. Patient
also admitted to her ileostomy bag not producing anything.
Patient endorsed to vomiting multiple times throughout the day. Denies to other symptoms.
A/P:
# Abdominal pain
# h/o SBO
CT AP noted developing moderate small bowel obstruction versus ileus- New.
GS on board, No plans for surgery, G-tube clamped, drain to gravity for symptoms
Due to persistent nausea and abd pain, small bowel follow through ordered, was incomplete due to vomiting
Follow up AXR noted Nonspecific bowel gas pattern
Cont clears (thickened) due to chronic dysphagia
[facility] eval prior to advancing diet
resumed some PO PRESBYTERIAN CLERGY meds
Pain control with IV Dilaudid PRN, Minimize narcotics if able
IV PPI added GI protection
Zofran PRN
# overnight hypoxia
Pt was placed on 3L NC overnight, nocturnal pulse Ox confirmed nocturnal hypoxia
cont O2 support at night time
# Hypokalemia
repleted
# ASCVD with h/o CVA, PAD, CAD
# Right Hemiparesis 2/2 CVA
# Dysarthria
resumed PRESBYTERIAN CLERGY ASA
but holding plavix
# HTN
[employer]BY[employer] CLERGY Norvasc decreased from 5 mg to 2.5 mg, cont with holding parameter
# CKD III
SCr today at 2.2; baseline SCr ~2.0
Observe off IVF
# Chronic Aspiration/Dysphagia
Previously recc by [facility] for IDDSI Level 6 Soft and Bite size diet and Mildly-thick liquids
# Hypothyroidism
resumed [employer]BY[employer]IAN CLERGY Synthroid
# Chronic Pain / Fibromyalgia- Stable.
PRESBYTERIAN CLERGY on hydrocodone-Tylenol
IV narcotic for severe pain
# Peripheral Neuropathy secondary to chemotherapy for cervical cancer
# s/p Partial Glossectomy
# Diet-Controlled DM-II, Stable.
DVT Prophylaxis: Heparin Subcut
Code Status: DNR, confirmed with pt
DW RN
Anticipated Discharge: 24 - 48 hours
Subjective/Interval History
-
Date of Service: July 20, 2024
Objective Data
-
Labs:
Laboratory Results
07/20/24
05:35
WBC 8.3
Hgb 8.7 L
Hct 26.3 L
Plt Count 117 L
Sodium 138
Potassium 4.1
Chloride 106
Carbon Dioxide 17 L
BUN 30 H
Creatinine 2.2 H
Glucose 92
Calcium 10.0
Vital Signs:
Vital Signs
Temp Pulse Resp BP Pulse Ox
37.0 C 60 16 99/57 97
07/20/24 11:25 07/20/24 11:25 07/20/24 11:25 07/20/24 11:25 07/20/24 11:25
I&O
07/19/24 07/20/24 07/21/24
06:59 06:59 06:59
Intake Total 240 / 240 1530 / 1530
Output Total 3550 / 3550 750 / 750
Balance -3310 / -3310 1530 / 1530 -750 / -750
Review of Systems
-
Abdomen/GI: Reports Abdominal Pain (mild and improved )
Physical Exam
-
General: Well Developed, Well Nourished, No Apparent Distress, Comfortable, Slurred Speech (chronic slurred speech) and Appears Chronically Ill
HEENT: Normocephalic and Atraumatic
Respiratory: Clear to Auscultation and Non Labored Respirations; Negative Accessory Resp Muscle Use
Cardiac: Regular Rhythm and S1/S2; Negative Murmur
GI: Soft, Nontender, Nondistended, Peg Tube and Ostomy
Musculoskeletal: No Clubbing, No Cyanosis and No Edema
Neuro: Awake, Alert and Other (right hemiplegia)
Psych: Calm and Intact Judgement/Insight
Data Reviewed
-
Diagnostic Radiology: Report Reviewed by me
CT Scan: Report Reviewed by me
Labs: Labs Reviewed by me
--- NOTE | 2024-07-20 14:10 | PTCARENOTE ---
Colostomy bag has bursted two times this shift the left lower side of skin will not stick to colostomy wafer. I am currently trialling the third colostomy wafter that is larger. so far it is sticking. This nurse has conducted twice an hour
colostomy checks to ensure it is functioning properly and stool does not contaminate the PEg or other aresof pt body
--- NOTE | 2024-07-20 14:19 | W.PN.GS2 ---
Today's Communication / Plan
-
full liquids
Assessment / Plan
-
58F history of stroke with reported paraplegia and states she is bedbound. She is on dual antiplatelet therapy, and her history is significant for cervical cancer status post open hysterectomy and colonic perforation with diverting loop colostomy
then converted to total colectomy with end ileostomy that has been resited. She presented to our hospital on 07/15/2024 with abdominal pain and found to have a partial small bowel obstruction secondary to adhesions in the setting of possible
?dysmotility, ?enteritis, and narcotic dependent ileus.
-Advance diet to fulls
-No plans for surgery at this time
Subjective Data
-
Date of Service: July 20, 2024
Patient states she feels 'a little better'. She has some appetite. She is drinking fluids without difficulty. Her pain is minimal.
Objective Data
-
Intake and Output
07/19/24 07/20/24 07/21/24
06:59 06:59 06:59
Intake Total 240 / 240 1530 / 1530
Output Total 3550 / 3550 750 / 750
Balance -3310 / -3310 1530 / 1530 -750 / -750
Intake:
Oral fluids 240 / 240 1530 / 1530
Output:
Liquid stool amount 3200 / 3200 750 / 750
Ileostomy 3200 / 3200 750 / 750
Urine, Voided 350 / 350
Other:
Number of approximated SMALL 1
amounts of urine
How many times incontinent 1
MODERATE amount urine
Number of unmeasured liquid
stools
Ileostomy 1
Vital Signs
Temp Pulse Resp BP Pulse Ox
98.6 F 60 16 99/57 97
07/20/24 11:25 07/20/24 11:25 07/20/24 11:25 07/20/24 11:25 07/20/24 11:25
Lab Results
07/20/24 05:35
07/20/24 05:35
Calcium 10.0 mg/dl (8.4-10.2) 07/20/24 05:35
Magnesium 1.9 mg/dl (1.6-2.3) 07/20/24 05:35
Total Bilirubin 0.6 mg/dl (0.2-1.3) 07/15/24 03:37
AST 20 U/L (14-36) 07/15/24 03:37
ALT 18 U/L (0-35) 07/15/24 03:37
Alkaline Phosphatase 93 U/L (38-126) 07/15/24 03:37
Total Protein 8.1 g/dl (6.3-8.2) 07/15/24 03:37
Albumin 4.2 g/dl (3.5-5.0) 07/15/24 03:37
Physical Exam
-
GENERAL/NEURO: Awake, Alert, no distress
CHEST: Unlabored breathing on RA
ABDOMEN: Soft, Non-Tender, Non-Distended, ostomy warm and pink with function
--- NOTE | 2024-07-20 15:10 | PTOTSP ---
ST Acute Care Evaluation
Pt currently presents with clinical symptoms consistent with mild to moderate oropharyngeal dysphagia characterized by slow, prolonged mastication and bolus formation, reduced bolus formation, and weak wet vocal quality and coughing with ingestion
of liquids that is indicative of airway invasion.
Recommendations:
- Change liquids to MODERATELY THICK LIQUIDS.
- When appropriate for solid upgrades, can start pt on SOFT BITE SIZED SOLIDS.
- Meds whole in puree.
- ASPIRATION PRECAUTIONS: HOB fully upright for all PO intake; no straws; small sips; chin tuck to the R side for all swallows.
- SOIL FERTILITY EXTENSION SPECIALIST to f/u re: pt's tolerance of the current recommended diet consistencies and to determine whether pt would benefit from an updated video fluoroscopic swallow study.
[2024-07-20 15:55] VITALS: BP 95/60
--- NOTE | 2024-07-20 17:24 | PTCARENOTE ---
colostomy leaked again. reapplied, bed changed.
[2024-07-20 19:41] VITALS: BP 153/57
[2024-07-20 23:50] VITALS: BP 92/50
[2024-07-21] VITALS (8 sets, daily range): BP systolic 81–129; BP diastolic 50–76
[2024-07-21] MEDS: DILAUDID 0.25 MG IV ×4 (00:45→17:13)
[2024-07-21] MEDS: SYNTHROID 75 MCG PO (05:01)
[2024-07-21 06:05] LABS: Hematocrit 27.1 % (37.0-47.0); Hemoglobin 8.8 g/dL (12.0-16.0); Mean Corp Hgb Conc. 32.5 g/dL (33.0-37.0); Mean Corpuscular Hgb 28.9 pg (27.0-31.0); Mean Corpuscular Volume 89.1 fL (81.0-99.0); Mean Platelet Volume 8.7 fL (7.4-10.4); Platelet Count 142 10^3/uL (130-400); Red Blood Cell Count 3.04 10^6/uL (4.20-5.40); Red Cell Dist. Width 14.6 % (11.5-14.5); White Blood Cell Count 8.6 10^3/uL (4.8-10.8)
[2024-07-21 06:26] LABS: Blood Urea Nitrogen 32 mg/dl (7-17); Calcium 9.8 mg/dl (8.4-10.2); Carbon Dioxide 18 mmol/L (22-30); Chloride 104 mmol/L (98-107); Estimated Creatinine Clearance 29 ml/min; Glucose 100 mg/dl (70-99); Potassium 4.2 mmol/L (3.5-5.1); Sodium 137 mmol/L (135-145); eGFR 21.75
[2024-07-21] MEDS: NORVASC PO (08:25)
[2024-07-21] MEDS: PROTONIX IV 40 MG IV (08:26)
[2024-07-21] MEDS: LOW STRENGTH ASPIRIN 81 MG PO (08:26)
[2024-07-21] MEDS: NSS (PRESERVATIVE FREE) 10 ML IV (08:27)
[2024-07-21] MEDS: HEPARIN 5000 UNITS SC ×3 (08:30→23:46)
--- NOTE | 2024-07-21 09:34 | CM ---
CM following for return to SNF when medically ready. Pt is bed bound; LTC resident at [facility]. Will need ambulance transport at discharge.
Pt with partial small bowel obstruction, diet being advanced today, and her pain is subsiding; no plan for surgical intervention.
Plan: Return to [facility] when medically ready, anticipated 24-48 hours.
Savannah Perryjeronimo Report: [phone]
[facility] or [phone]
PCP: Michael Vargas
Pharmacy: [facility] used by [facility]
[2024-07-21] MEDS: SODIUM BICARBONATE 650 MG PO ×3 (09:42→23:46)
--- NOTE | 2024-07-21 12:17 | W.PN.HOSP.TC ---
Today's Communication/Plan
-
Monitor vital signs see plan
Advance diet to IDDSI 6 with moderately thick liquid
Midodrine, fluids. Monitor blood pressure closely
Assessment / Plan
Assessment / Plan
HPI: 58 year old female with PMH of chronic abdominal pain, s/p PEG and ileostomy, HLD, DM, cervical cancer, CVA, CAD/[place], CKD; presented to the ED with abdominal pain x 1 day. Pain started after she woke up in the morning, diffuse in nature. Patient
also admitted to her ileostomy bag not producing anything.
Patient endorsed to vomiting multiple times throughout the day. Denies to other symptoms.
A/P:
# Abdominal pain
# h/o SBO
CT AP noted developing moderate small bowel obstruction versus ileus- New.
GS on board, No plans for surgery, G-tube clamped, drain to gravity for symptoms
Due to persistent nausea and abd pain, small bowel follow through ordered, was incomplete due to vomiting
Follow up AXR noted Nonspecific bowel gas pattern
per ARMAMENT REPAIRER; soft and bite size with mod thick
resumed some PO FIRE WATCHER meds
Pain control with IV Dilaudid PRN, Minimize narcotics if able
IV PPI added GI protection
Zofran PRN
# overnight hypoxia
Pt was placed on 3L NC overnight, nocturnal pulse Ox confirmed nocturnal hypoxia
cont O2 support at night time
# Hypokalemia
repleted
# ASCVD with h/o CVA, PAD, CAD
# Right Hemiparesis 2/2 CVA
# Dysarthria
resumed FIRE WATCHER ASA
but holding plavix
# HTN
FIRE WATCHER Norvasc decreased from 5 mg to 2.5 mg, cont with holding parameter
hypotension; give gentle hydration and midodrine
# RHETT on CKD III
SCr today at 2.5; baseline SCr ~2.0
monitor
# Chronic Aspiration/Dysphagia
Previously recc by [facility] for IDDSI Level 6 Soft and Bite size diet and Mildly-thick liquids
# Hypothyroidism
resumed FIRE WATCHER Synthroid
# Chronic Pain / Fibromyalgia- Stable.
FIRE WATCHER on hydrocodone-Tylenol
IV narcotic for severe pain
# Peripheral Neuropathy secondary to chemotherapy for cervical cancer
# s/p Partial Glossectomy
# Diet-Controlled DM-II, Stable.
DVT Prophylaxis: Heparin Subcut
Code Status: DNR, confirmed with pt
General: Well Developed, Well Nourished, No Apparent Distress, Comfortable, Slurred Speech (chronic slurred speech) and Appears Chronically Ill
HEENT: Normocephalic and Atraumatic
Respiratory: Clear to Auscultation and Non Labored Respirations; Negative Accessory Resp Muscle Use
Cardiac: Regular Rhythm and S1/S2; Negative Murmur
GI: Soft, Nontender, Nondistended, Peg Tube and Ostomy
Musculoskeletal: No Clubbing, No Cyanosis and No Edema
Neuro: Awake, Alert and Other (right hemiplegia)
Psych: Calm and Intact Judgement/Insight
I spent a total of 51 minutes with the patient or on the floor. More than 50% of this time involved counseling and coordination of care.
Anticipated Discharge: 24 - 48 hours
Subjective/Interval History
-
Date of Service: July 21, 2024
denies pain
Objective Data
-
Labs:
Laboratory Results
07/21/24
05:36
WBC 8.6
Hgb 8.8 L
Hct 27.1 L
Plt Count 142 D
Sodium 137
Potassium 4.2
Chloride 104
Carbon Dioxide 18 L
BUN 32 H
Creatinine 2.5 H
Glucose 100 H
Calcium 9.8
Vital Signs:
Vital Signs
Temp Pulse Resp BP Pulse Ox
98.3 F 60 16 81/50 98
07/21/24 12:05 07/21/24 12:05 07/21/24 12:05 07/21/24 12:05 07/21/24 12:05
I&O
07/20/24 07/21/24 07/22/24
06:59 06:59 06:59
Intake Total 1530 / 1530 1200 / 1200 240 / 240
Output Total 750 / 750 650 / 650
Balance 1530 / 1530 450 / 450 -410 / -410
[2024-07-21] MEDS: ProAmatine 5 MG PO (12:30)
[2024-07-21] MEDS: NSS 500 IV (12:31)
[2024-07-21] MEDS: ZOFRAN 4 MG IV (19:22)
[2024-07-21] MEDS: BUSPAR 10 MG PO (19:37)
[2024-07-22] MEDS: DILAUDID 0.25 MG IV ×5 (00:31→20:22)
[2024-07-22 03:40] VITALS: BP 98/51
[2024-07-22] MEDS: SYNTHROID 75 MCG PO (05:15)
[2024-07-22 06:54] LABS: % Basophils 0.2 % (0-2); % Eosinophils 4.1 % (0-6); % Immature Granulocytes 3.3 % (0-0.5); % Lymphocytes 15.8 % (20.5-51.1); % Monocytes 10.2 % (1.7-9.3); % Neutrophils 66.4 % (42.2-75.2); Absolute Eosinophils 0.4 10^3/uL (0-0.7); Absolute Immature Granulocytes 0.3 10^3/uL (0-0.05); Absolute Lymphocytes 1.4 10^3/uL (1.2-3.4); Absolute Monocytes 0.9 10^3/uL (0.1-0.6); Absolute Neutrophils 5.8 10^3/uL (1.4-6.5); Hematocrit 26.6 % (37.0-47.0); Hemoglobin 8.7 g/dL (12.0-16.0); Mean Corp Hgb Conc. 32.7 g/dL (33.0-37.0); Mean Corpuscular Hgb 30.2 pg (27.0-31.0); Mean Corpuscular Volume 92.4 fL (81.0-99.0); Mean Platelet Volume 8.7 fL (7.4-10.4); Nucleated Red Blood Cells % 0 %; Platelet Count 130 10^3/uL (130-400); Red Blood Cell Count 2.88 10^6/uL (4.20-5.40); Red Cell Dist. Width 14.6 % (11.5-14.5); White Blood Cell Count 8.8 10^3/uL (4.8-10.8)
[2024-07-22 07:22] LABS: Blood Urea Nitrogen 36 mg/dl (7-17); Calcium 9.3 mg/dl (8.4-10.2); Carbon Dioxide 19 mmol/L (22-30); Chloride 105 mmol/L (98-107); Estimated Creatinine Clearance 27 ml/min; Glucose 89 mg/dl (70-99); Potassium 4.2 mmol/L (3.5-5.1); Sodium 139 mmol/L (135-145); eGFR 19.83
[2024-07-22 07:34] VITALS: BP 86/50
[2024-07-22] MEDS: LOW STRENGTH ASPIRIN 81 MG PO (09:02)
[2024-07-22] MEDS: HEPARIN 5000 UNITS SC ×3 (09:03→23:53)
[2024-07-22] MEDS: SODIUM BICARBONATE 650 MG PO ×3 (09:03→23:53)
[2024-07-22] MEDS: EFFEXOR XR 225 MG PO (09:03)
[2024-07-22] MEDS: BUSPAR 10 MG PO ×2 (09:03→20:09)
[2024-07-22] MEDS: NSS (PRESERVATIVE FREE) 10 ML IV (09:04)
[2024-07-22] MEDS: PROTONIX IV 40 MG IV (09:05)
[2024-07-22] MEDS: NORVASC PO (09:24)
[2024-07-22 11:29] VITALS: BP 101/55
[2024-07-22] MEDS: ProAmatine 5 MG PO (11:32)
--- NOTE | 2024-07-22 11:33 | W.PN.HOSP.TC ---
Today's Communication/Plan
-
Monitor vital signs see plan
Give midodrine for hypotension
Check a UA, urine studies for elevated creatinine
Monitor renal function
Continue with current diet
Assessment / Plan
Assessment / Plan
HPI: 58 year old female with PMH of chronic abdominal pain, s/p PEG and ileostomy, HLD, DM, cervical cancer, CVA, CAD/[place], CKD; presented to the ED with abdominal pain x 1 day. Pain started after she woke up in the morning, diffuse in nature. Patient
also admitted to her ileostomy bag not producing anything.
Patient endorsed to vomiting multiple times throughout the day. Denies to other symptoms.
A/P:
# Abdominal pain
# h/o SBO
CT AP noted developing moderate small bowel obstruction versus ileus- New.
GS on board, No plans for surgery, G-tube clamped, drain to gravity for symptoms
Due to persistent nausea and abd pain, small bowel follow through ordered, was incomplete due to vomiting
Follow up AXR noted Nonspecific bowel gas pattern
per FOOD EDITOR; low res with mod thick per surgery
resumed some PO DIMENSIONAL ENGINEER meds
Pain control with IV Dilaudid PRN, Minimize narcotics if able
IV PPI added GI protection
Zofran PRN
# overnight hypoxia
Pt was placed on 3L NC overnight, nocturnal pulse Ox confirmed nocturnal hypoxia
cont O2 support at night time
# Hypokalemia
repleted
# ASCVD with h/o CVA, PAD, CAD
# Right Hemiparesis 2/2 CVA
# Dysarthria
resumed DIMENSIONAL ENGINEER ASA
but holding plavix
# HTN
DIMENSIONAL ENGINEER Norvasc decreased from 5 mg to 2.5 mg, cont with holding parameter
hypotension; give midodrine
# RHETT on CKD III
SCr today at 2.7; baseline SCr ~2.0
monitor
check Ua,urine studies
# Chronic Aspiration/Dysphagia
Previously recc by [facility] for IDDSI Level 6 Soft and Bite size diet and Mildly-thick liquids
# Hypothyroidism
resumed DIMENSIONAL ENGINEER Synthroid
# Chronic Pain / Fibromyalgia- Stable.
DIMENSIONAL ENGINEER on hydrocodone-Tylenol
IV narcotic for severe pain
# Peripheral Neuropathy secondary to chemotherapy for cervical cancer
# s/p Partial Glossectomy
# Diet-Controlled DM-II, Stable.
DVT Prophylaxis: Heparin Subcut
Code Status: DNR, confirmed with pt
General: Well Developed, Well Nourished, No Apparent Distress, Comfortable, Slurred Speech (chronic slurred speech) and Appears Chronically Ill
HEENT: Normocephalic and Atraumatic
Respiratory: Clear to Auscultation and Non Labored Respirations; Negative Accessory Resp Muscle Use
Cardiac: Regular Rhythm and S1/S2; Negative Murmur
GI: Soft, Nontender, Nondistended, Peg Tube and Ostomy
Musculoskeletal: No Clubbing, No Cyanosis and No Edema
Neuro: Awake, Alert and Other (right hemiplegia)
Psych: Calm and Intact Judgement/Insight
I spent a total of 52 minutes with the patient or on the floor. More than 50% of this time involved counseling and coordination of care.
Anticipated Discharge: 24 - 48 hours
Subjective/Interval History
-
Date of Service: July 22, 2024
denies pain
Objective Data
-
Labs:
Laboratory Results
07/22/24
06:25
WBC 8.8
Hgb 8.7 L
Hct 26.6 L
Plt Count 130
Sodium 139
Potassium 4.2
Chloride 105
Carbon Dioxide 19 L
BUN 36 H
Creatinine 2.7 H
Glucose 89
Calcium 9.3
Vital Signs:
Vital Signs
Temp Pulse Resp BP Pulse Ox
98.6 F 65 16 105/51 99
07/22/24 11:29 07/22/24 11:29 07/22/24 11:29 07/22/24 11:32 07/22/24 11:29
I&O
07/21/24 07/22/24 07/23/24
06:59 06:59 06:59
Intake Total 1200 / 1200 1440 / 1440
Output Total 750 / 750 1400 / 1400
Balance 450 / 450 40 / 40
[2024-07-22 13:31] LABS: Urine Albumin 1+ (Neg - Trace); Urine Bilirubin Negative (Negative); Urine Character Very Cloudy (Clear); Urine Color Straw; Urine Glucose Negative (Negative); Urine Ketone Negative (Negative); Urine Leukocyte 2+ (Negative); Urine Nitrite Negative (Negative); Urine Occult Blood 3+ (Negative); Urine Specific Gravity 1.025 (<1.030); Urine Urobilinogen Negative (Neg - 1+)
[2024-07-22 13:45] LABS: Urine Bacteria Few (Negative); Urine White Cell 60-70 /HPF (0-5); Urine Yeast Moderate (Negative)
[2024-07-22 13:50] LABS: Body Fluid for Eosinophils No Eosinophils seen
[2024-07-22 14:02] LABS: Urine Sodium 13 mmol/L (30-90)
--- NOTE | 2024-07-22 14:31 | PTOTSP ---
ST Follow-Up
Pt continues to present with clinical signs of suspected pharyngeal dysphagia.
Recommendations:
- Continue with soft bite sized solids and moderately thick liquids with meds whole in puree.
- Compensatory strategies: chin tuck and turn to R
- NO ARHP at this time.
- Aspiration precautions: Fully awake, alert, and upright for all PO intake; encourage pt to cough + swallow when presenting with a wet vocal quality; small bites/sips; slow intake.
- VFSS for more information about current swallowing function.
- GYMNASTICS INSTRUCTOR to f/u and provide recommendations following completion of VFSS.
[2024-07-22] MEDS: ZOFRAN 4 MG IV (14:50)
[2024-07-22 15:43] VITALS: BP 128/62
[2024-07-22] MEDS: STERILE WATER FOR INJECTION 10 ML IV (16:02)
[2024-07-22] MEDS: ROCEPHIN 1000 MG IV (16:03)
[2024-07-22 19:35] VITALS: BP 139/69
[2024-07-22 23:25] VITALS: BP 134/83
[2024-07-23] MEDS: DILAUDID 0.25 MG IV ×6 (01:48→21:36)
[2024-07-23 03:45] VITALS: BP 166/78
[2024-07-23] MEDS: SYNTHROID 75 MCG PO (05:25)
[2024-07-23 06:26] LABS: % Basophils 0.4 % (0-2); % Eosinophils 4.6 % (0-6); % Lymphocytes 12.3 % (20.5-51.1); % Monocytes 8.1 % (1.7-9.3); % Neutrophils 71.6 % (42.2-75.2); Absolute Eosinophils 0.4 10^3/uL (0-0.7); Absolute Immature Granulocytes 0.2 10^3/uL (0-0.05); Absolute Lymphocytes 0.9 10^3/uL (1.2-3.4); Absolute Monocytes 0.6 10^3/uL (0.1-0.6); Absolute Neutrophils 5.4 10^3/uL (1.4-6.5); Hematocrit 28.8 % (37.0-47.0); Hemoglobin 9.3 g/dL (12.0-16.0); Mean Corp Hgb Conc. 32.3 g/dL (33.0-37.0); Mean Corpuscular Hgb 28.5 pg (27.0-31.0); Mean Corpuscular Volume 88.3 fL (81.0-99.0); Mean Platelet Volume 9.2 fL (7.4-10.4); Nucleated Red Blood Cells % 0 %; Platelet Count 133 10^3/uL (130-400); Red Blood Cell Count 3.26 10^6/uL (4.20-5.40); Red Cell Dist. Width 14.2 % (11.5-14.5); White Blood Cell Count 7.6 10^3/uL (4.8-10.8)
[2024-07-23 07:00] VITALS: BP 165/86
[2024-07-23 07:01] LABS: Blood Urea Nitrogen 35 mg/dl (7-17); Calcium 9.9 mg/dl (8.4-10.2); Carbon Dioxide 18 mmol/L (22-30); Chloride 105 mmol/L (98-107); Estimated Creatinine Clearance 33 ml/min; Glucose 108 mg/dl (70-99); Potassium 4.3 mmol/L (3.5-5.1); Sodium 139 mmol/L (135-145); eGFR 25.35
[2024-07-23] MEDS: NORVASC 2.5 MG PO (08:17)
[2024-07-23] MEDS: LOW STRENGTH ASPIRIN 81 MG PO (08:17)
[2024-07-23] MEDS: PROTONIX IV 40 MG IV (08:17)
[2024-07-23] MEDS: EFFEXOR XR 225 MG PO (08:17)
[2024-07-23] MEDS: SODIUM BICARBONATE 650 MG PO ×2 (08:17→15:19)
[2024-07-23] MEDS: NSS (PRESERVATIVE FREE) 10 ML IV (08:17)
[2024-07-23] MEDS: BUSPAR 10 MG PO ×2 (08:20→21:29)
[2024-07-23] MEDS: HEPARIN 5000 UNITS SC ×2 (08:20→15:19)
--- NOTE | 2024-07-23 08:40 | PTOTSP ---
Speech Language Pathology
VIDEOFLUOROSCOPIC SWALLOWING EXAMINATION (VSE) completed. Overall, pt with mild-mod oral and mod pharyngeal dysphagia. Decreased mastication noted with pt swallowing large piece of unchewed cookie, which places pt at risk for airway obstruction.
Typically trace penetration to the level of the vocal folds or transient aspiration noted with liquids. Increased aspiration noted when not utilizing baseline strategies of head turn R and chin tuck. Similar penetration/aspiration noted with all
consistencies of liquids.
Recommend:
(1) IDDSI Level 6 (soft/bite-sized) and thin liquids
(2) Aspiration precautions: sit upright, slow rate, head turn R and chin tuck with all liquids, chew food thoroughly
(3) Meds whole in puree
(4) PHYS ASSISTANT to continue to follow
[2024-07-23 11:00] VITALS: BP 140/82
--- NOTE | 2024-07-23 12:12 | W.PN.HOSP.TC ---
Today's Communication/Plan
-
Monitor vital signs see plan
Continue ceftriaxone, follow urine culture
Monitor urine output
Continue with current diet
Assessment / Plan
Assessment / Plan
HPI: 58 year old female with PMH of chronic abdominal pain, s/p PEG and ileostomy, HLD, DM, cervical cancer, CVA, CAD/[place], CKD; presented to the ED with abdominal pain x 1 day. Pain started after she woke up in the morning, diffuse in nature. Patient
also admitted to her ileostomy bag not producing anything.
Patient endorsed to vomiting multiple times throughout the day. Denies to other symptoms.
A/P:
# Abdominal pain
# h/o SBO
CT AP noted developing moderate small bowel obstruction versus ileus- New.
GS on board, No plans for surgery, G-tube clamped, drain to gravity for symptoms
Due to persistent nausea and abd pain, small bowel follow through ordered, was incomplete due to vomiting
Follow up AXR noted Nonspecific bowel gas pattern
per SECONDS INSPECTOR; low res with mod thick per surgery
resumed some PO SPOOL SORTER meds
Pain control with IV Dilaudid PRN, Minimize narcotics if able
IV PPI added GI protection
Zofran PRN
# overnight hypoxia
Pt was placed on 3L NC overnight, nocturnal pulse Ox confirmed nocturnal hypoxia
cont O2 support at night time
# Hypokalemia
repleted
# ASCVD with h/o CVA, PAD, CAD
# Right Hemiparesis 2/2 CVA
# Dysarthria
resumed SPOOL SORTER ASA
plavix restarted
# HTN
SPOOL SORTER Norvasc decreased from 5 mg to 2.5 mg, cont with holding parameter
BP better today
# RHETT on CKD III
SCr peaked at 2.7; baseline SCr ~2.0
monitor; now 2.2
appears flight agent UTI; cw abx. follow urine cx
# Chronic Aspiration/Dysphagia
on IDDSI Level 6 Soft and Bite size diet and thin liquids; VSE noted
# Hypothyroidism
resumed SPOOL SORTER Synthroid
# Chronic Pain / Fibromyalgia- Stable.
SPOOL SORTER on hydrocodone-Tylenol
IV narcotic for severe pain
# Peripheral Neuropathy secondary to chemotherapy for cervical cancer
# s/p Partial Glossectomy
# Diet-Controlled DM-II, Stable.
DVT Prophylaxis: Heparin Subcut
Code Status: DNR, confirmed with pt
General: Well Developed, Well Nourished, No Apparent Distress, Comfortable, Slurred Speech (chronic slurred speech) and Appears Chronically Ill
HEENT: Normocephalic and Atraumatic
Respiratory: Clear to Auscultation and Non Labored Respirations; Negative Accessory Resp Muscle Use
Cardiac: Regular Rhythm and S1/S2; Negative Murmur
GI: Soft, Nontender, Nondistended, Peg Tube and Ostomy
Musculoskeletal: No Clubbing, No Cyanosis and No Edema
Neuro: Awake, Alert and Other (right hemiplegia)
Psych: Calm and Intact Judgement/Insight
I spent a total of 51 minutes with the patient or on the floor. More than 50% of this time involved counseling and coordination of care.
Anticipated Discharge: Within 24 hours
Subjective/Interval History
-
Date of Service: July 23, 2024
denies pain
Objective Data
-
Labs:
Laboratory Results
07/23/24
05:47
WBC 7.6
Hgb 9.3 L
Hct 28.8 L
Plt Count 133
Sodium 139
Potassium 4.3
Chloride 105
Carbon Dioxide 18 L
BUN 35 H
Creatinine 2.2 H
Glucose 108 H
Calcium 9.9
Vital Signs:
Vital Signs
Temp Pulse Resp BP Pulse Ox
97.7 F 70 18 140/82 98
07/23/24 11:00 07/23/24 11:00 07/23/24 11:00 07/23/24 11:00 07/23/24 11:00
I&O
07/22/24 07/23/24 07/24/24
06:59 06:59 06:59
Intake Total 1440 / 1440 840 / 840
Output Total 1400 / 1400 100 / 100
Balance 40 / 40 740 / 740
--- NOTE | 2024-07-23 12:30 | CM ---
CM following re: discharge planning.
Reviewed pt's chart, met with pt.
Pt reports she is a LTC resident at [facility], w/c bound, has supportive and 3 children and they visit her at [facility] on a regular basis.
Pt expressed her desire to return back to [facility] when medically stable.
IMM reviewed, placed on chart, pt has a copy.
Updated pt's clinical faxed to [facility] for a review.
[facility] nursing Report: [phone]
[facility] or [phone]
D/C plan: return back to [facility] when medically stable.
CM will follow to assist pt with discharge to [facility].
[2024-07-23 15:00] VITALS: BP 152/75
[2024-07-23] MEDS: STERILE WATER FOR INJECTION 10 ML IV (15:19)
[2024-07-23] MEDS: ROCEPHIN 1000 MG IV (15:19)
[2024-07-23 19:00] VITALS: BP 145/68
[2024-07-23] MEDS: LIPITOR 40 MG PO (21:29)
[2024-07-23 23:00] VITALS: BP 159/89
[2024-07-24] MEDS: SODIUM BICARBONATE 650 MG PO ×3 (00:01→15:48)
[2024-07-24] MEDS: HEPARIN 5000 UNITS SC ×3 (00:01→15:49)
[2024-07-24 03:00] VITALS: BP 162/80
[2024-07-24] MEDS: SYNTHROID 75 MCG PO (05:47)
[2024-07-24] MEDS: DILAUDID 0.25 MG IV ×4 (05:47→15:50)
[2024-07-24 06:11] LABS: % Basophils 0.6 % (0-2); % Immature Granulocytes 2.3 % (0-0.5); % Lymphocytes 14.9 % (20.5-51.1); % Monocytes 8.5 % (1.7-9.3); % Neutrophils 68.7 % (42.2-75.2); Absolute Eosinophils 0.4 10^3/uL (0-0.7); Absolute Immature Granulocytes 0.2 10^3/uL (0-0.05); Absolute Lymphocytes 1.1 10^3/uL (1.2-3.4); Absolute Monocytes 0.6 10^3/uL (0.1-0.6); Absolute Neutrophils 4.9 10^3/uL (1.4-6.5); Hematocrit 27.5 % (37.0-47.0); Mean Corp Hgb Conc. 32.7 g/dL (33.0-37.0); Mean Corpuscular Hgb 28.4 pg (27.0-31.0); Mean Corpuscular Volume 86.8 fL (81.0-99.0); Mean Platelet Volume 8.6 fL (7.4-10.4); Nucleated Red Blood Cells % 0 %; Platelet Count 115 10^3/uL (130-400); Red Blood Cell Count 3.17 10^6/uL (4.20-5.40); White Blood Cell Count 7.1 10^3/uL (4.8-10.8)
[2024-07-24 06:44] LABS: Blood Urea Nitrogen 34 mg/dl (7-17); Calcium 9.7 mg/dl (8.4-10.2); Carbon Dioxide 17 mmol/L (22-30); Chloride 106 mmol/L (98-107); Estimated Creatinine Clearance 36 ml/min; Glucose 96 mg/dl (70-99); Potassium 4.3 mmol/L (3.5-5.1); Sodium 138 mmol/L (135-145); eGFR 28.42
[2024-07-24] MEDS: NORVASC 2.5 MG PO (07:47)
[2024-07-24] MEDS: EFFEXOR XR 225 MG PO (07:47)
[2024-07-24] MEDS: BUSPAR 10 MG PO (07:48)
[2024-07-24] MEDS: LOW STRENGTH ASPIRIN 81 MG PO (07:48)
[2024-07-24] MEDS: PLAVIX 75 MG PO (07:48)
[2024-07-24] MEDS: NSS (PRESERVATIVE FREE) 10 ML IV (07:49)
[2024-07-24] MEDS: PROTONIX IV 40 MG IV (07:49)
[2024-07-24 08:55] VITALS: BP 144/83
--- NOTE | 2024-07-24 11:37 | W.PN.HOSP.TC ---
Addendum entered and electronically signed by Raul Sierra MD 07/24/24 13:25:
increase amlodipine back to 5 mg
Original Note:
Today's Communication/Plan
-
monitor vitals
see plan
switch abx to PO
dc today
time of discharge 38 minutes
Assessment / Plan
Assessment / Plan
HPI: 58 year old female with PMH of chronic abdominal pain, s/p PEG and ileostomy, HLD, DM, cervical cancer, CVA, CAD/[place], CKD; presented to the ED with abdominal pain x 1 day. Pain started after she woke up in the morning, diffuse in nature. Patient
also admitted to her ileostomy bag not producing anything.
Patient endorsed to vomiting multiple times throughout the day. Denies to other symptoms.
A/P:
# Abdominal pain
# h/o SBO
CT AP noted developing moderate small bowel obstruction versus ileus- New.
GS on board, No plans for surgery, G-tube clamped, drain to gravity for symptoms
Due to persistent nausea and abd pain, small bowel follow through ordered, was incomplete due to vomiting
Follow up AXR noted Nonspecific bowel gas pattern
per ATHLETIC TEAM PHYSICIAN; IDDS 6 with mod thick per surgery
resumed some PO SYSTEMS MANAGER meds
Pain control with IV Dilaudid PRN, Minimize narcotics if able
IV PPI added GI protection
Zofran PRN
# overnight hypoxia
Pt was placed on 3L NC overnight, nocturnal pulse Ox confirmed nocturnal hypoxia
cont O2 support at night time
# Hypokalemia
repleted
# ASCVD with h/o CVA, PAD, CAD
# Right Hemiparesis 2/2 CVA
# Dysarthria
resumed SYSTEMS MANAGER ASA
plavix restarted
# HTN
SYSTEMS MANAGER Norvasc decreased from 5 mg to 2.5 mg, cont with holding parameter
BP better today
# RHETT on CKD III
SCr peaked at 2.7; baseline SCr ~2.0
monitor; now 2
appears has UTI; cw abx. follow urine cx with contamination; switch to cefdinir to complete course
# Chronic Aspiration/Dysphagia
on IDDSI Level 6 Soft and Bite size diet and thin liquids; VSE noted
# Hypothyroidism
resumed SYSTEMS MANAGER Synthroid
# Chronic Pain / Fibromyalgia- Stable.
SYSTEMS MANAGER on hydrocodone-Tylenol
IV narcotic for severe pain
# Peripheral Neuropathy secondary to chemotherapy for cervical cancer
# s/p Partial Glossectomy
# Diet-Controlled DM-II, Stable.
DVT Prophylaxis: Heparin Subcut
Code Status: DNR, confirmed with pt
General: Well Developed, Well Nourished, No Apparent Distress, Comfortable, Slurred Speech (chronic slurred speech) and Appears Chronically Ill
HEENT: Normocephalic and Atraumatic
Respiratory: Clear to Auscultation and Non Labored Respirations; Negative Accessory Resp Muscle Use
Cardiac: Regular Rhythm and S1/S2; Negative Murmur
GI: Soft, Nontender, Nondistended, Peg Tube and Ostomy
Musculoskeletal: No Clubbing, No Cyanosis and No Edema
Neuro: Awake, Alert and Other (right hemiplegia)
Psych: Calm and Intact Judgement/Insight
Anticipated Discharge: Today
Subjective/Interval History
-
Date of Service: July 24, 2024
denies nausea
Objective Data
-
Labs:
Laboratory Results
07/24/24
05:43
WBC 7.1
Hgb 9.0 L
Hct 27.5 L
Plt Count 115 L
Sodium 138
Potassium 4.3
Chloride 106
Carbon Dioxide 17 L
BUN 34 H
Creatinine 2.0 H
Glucose 96
Calcium 9.7
Vital Signs:
Vital Signs
Temp Pulse Resp BP Pulse Ox
98.2 F 71 18 144/83 100
07/24/24 08:55 07/24/24 08:55 07/24/24 08:55 07/24/24 08:55 07/24/24 08:55
I&O
07/23/24 07/24/24 07/25/24
06:59 06:59 06:59
Intake Total 840 / 840 560 / 560
Output Total 100 / 100 250 / 250
Balance 740 / 740 310 / 310
--- NOTE | 2024-07-24 11:44 | W.DCSUMMARY ---
Discharge Summary
Discharge Data
Date of Admission: 07/15/24
Date of Discharge: 07/24/24
-
Pending Results: No
Hospital Course
58-year-old female with past medical history of chronic abdominal pain status post PEG and ileostomy, hyperlipidemia, diabetes mellitus, cervical cancer, CVA, CAD/OR, CKD came to the hospital with abdominal pain known to have small bowel obstruction
along with some possible ileus. Patient was seen by general surgery throughout hospitalization and was managed conservatively for her bowel obstruction. Her symptoms continue to improve eventually and she was able to tolerate diet prior to
discharge. Per speech therapy recommendation she was recommended soft and bite-size diet with thin liquids. Patient also had overnight hypoxia with nocturnal pulse test was done and she was qualified for oxygen. She also had acute kidney injury
on chronic kidney disease which was likely attributed to urinary tract infection which over time continue to improve with antibiotics. Her creatinine went to baseline prior to discharge. Once her symptoms continue to improve she was then
discharged back to SNF with instructions to follow-up with all her physicians outpatient.
Discharge Plan
-
Patient Disposition: [facility]NF
Discharge Diagnosis/Procedures: Small bowel obstruction
Nocturnal hypoxia
RHETT on CKD
Chronic aspiration/dysphagia
Diet: Other diet
Additional Diets: Soft and bite-size with thin liquid
Activity: With assistance and As tolerated
Driving Restrictions: Not until seen by your Dr
Bathing Restrictions: None
Referrals:
Michael Vargas MD [Family Provider] - in less than 1 week
Prescriptions:
New
cefdinir 300 mg capsule
300 mg PO BID Qty: 4 0RF
Continued
clopidogrel [Plavix] 75 mg Tablet
75 mg PO DAILY
atorvastatin 40 mg tablet
40 mg PO HS
buspirone 5 mg Tablet
10 mg PO BID
acetaminophen 325 mg Tablet
650 mg PO Q4HPRN PRN (Reason: mild pain/temp>100F)
sodium bicarbonate 650 mg Tablet
650 mg PO Q8H
Fleet Enema 19-7 gram/118 mL Enema
118 ml RI DAILYPRN PRN (Reason: if dulcolax is ineffective after 24hrs)
gabapentin 300 mg capsule
300 mg PO TID
loratadine 10 mg Tablet
10 mg PO DAILY
cholecalciferol (vitamin D3) [Vitamin D3] 25 mcg (1,000 unit) Tablet
25 mcg PO DAILY
melatonin 5 mg Tablet
5 mg PO HS
guaifenesin 600 mg Tablet Extended Release 12hr
600 mg PO BID
loperamide 2 mg Tablet
2 mg PO Q6HPRN PRN (Reason: diarrhea)
amlodipine [Norvasc] 5 mg Tablet
5 mg PO DAILY
levothyroxine [Synthroid] 75 mcg Tablet
75 mcg PO DAILY
magnesium hydroxide [Milk of Magnesia] 400 mg/5 mL Suspension
2,400 mg PO [id number] PRN (Reason: constipation)
bisacodyl [Dulcolax (bisacodyl)] 10 mg Suppository
10 mg RI DAILYPRN PRN (Reason: if no bm aftr mom)
lidocaine 5 % Adhesive Patch,Medicated
1 patch TOPICAL DAILY
aspirin 81 mg Tablet,Chewable
81 mg PO DAILY
diclofenac sodium 1 % Gel
2 g TOPICAL TID
venlafaxine 225 mg Tablet Extended Release 24hr
225 mg PO DAILY
famotidine 20 mg tablet
20 mg PO HS
pantoprazole [address] for susp in packet
40 mg PO DAILY
Changed
hydrocodone-acetaminophen 5-325 mg tablet
1 tab PO Q4HPRN PRN (Reason: moderate to severe pain) Qty: 10 0RF
Discharge Orders:
Discharge Patient (As Directed); Ordered 07/24/24
Ordered By: Raul Sierra
Discharge Date and Time
Discharge Date/Time: 07/24/24 18:00
Print Language: WELSH
[2024-07-24 11:53] VITALS: BP 134/63
[2024-07-24] MEDS: AFLURIA (36 mos+) 2024-2025 FORMULA 0.5 ML IM (12:34)
[2024-07-24] MEDS: ZOFRAN 4 MG IV (12:37)
--- NOTE | 2024-07-24 14:40 | CM ---
met with patient and daughter at bedside.confirmed with court that bed is available for patient.patient is stable for dc back to [facility].imm letter already signed.attending aware.ambulance transport arranged for transfer back to
facility.contact information already in chart and imm letter already signed.
[2024-07-24] MEDS: STERILE WATER FOR INJECTION 10 ML IV (15:49)
[2024-07-24] MEDS: ROCEPHIN 1000 MG IV (15:49)
[2024-07-24 17:00] VITALS: BP 143/69
== END 2024-07-24 18:00 | DRG 389 ==
LOC: 3 WEST ACU 08:56
PROVIDERS: Student in an Organized Health Care Education/Training Program; ADMITTING PHYSICIAN Internal Medicine; ATTENDING PHYSICIAN Internal Medicine; CONSULT PHYSICIAN Surgery; EMERGENCY PHYSICIAN Emergency Medicine; FAMILY PHYSICIAN Internal Medicine
DX: K56.51 Intestinal adhesions [bands], with partial obstruction (principal); G82.20 Paraplegia, unspecified; N17.9 Acute kidney failure, unspecified; N39.0 Urinary tract infection, site not specified; I69.351 Hemiplegia and hemiparesis following cerebral infarction affecting right dominant side; E03.9 Hypothyroidism, unspecified; K56.7 Ileus, unspecified; G89.4 Chronic pain syndrome; M79.7 Fibromyalgia; C53.9 Malignant neoplasm of cervix uteri, unspecified; G62.0 Drug-induced polyneuropathy; T45.1X5A Adverse effect of antineoplastic and immunosuppressive drugs, initial encounter; Z66 Do not resuscitate; E87.6 Hypokalemia; I25.10 Atherosclerotic heart disease of native coronary artery without angina pectoris; I12.9 Hypertensive chronic kidney disease with stage 1 through stage 4 chronic kidney disease, or unspecified chronic kidney disease; N18.30 Chronic kidney disease, stage 3 unspecified; Y65.8 Other specified misadventures during surgical and medical care
CPT/HCPCS: 74018; 74176; 74230; 74250; 80048; 80053; 81003; 81015; 81099; 82570; 83605; 83690; 83735; 84300; 85025; 85027; 87070; 87086; 90686; 92526; 92610; 92611; 94762; 96361; 96374; 96375; 96376; 99285; G0008

== ENCOUNTER 2025-01-12 05:22 | Inpatient (IN) | payer MEDICARE, OTHER, SELFPAY ==
[2025-01-11 23:10] VITALS: BP 147/81; BMI 33.5
[2025-01-11 23:16] VITALS: BP 147/81
[2025-01-11 23:48] LABS: % Basophils 0.3 % (0-2); % Eosinophils 2.7 % (0-6); % Immature Granulocytes 0.3 % (0-0.5); % Lymphocytes 7.3 % (20.5-51.1); % Monocytes 6.1 % (1.7-9.3); % Neutrophils 83.3 % (42.2-75.2); Absolute Eosinophils 0.3 10^3/uL (0-0.7); Absolute Lymphocytes 0.9 10^3/uL (1.2-3.4); Absolute Monocytes 0.8 10^3/uL (0.1-0.6); Absolute Neutrophils 10.6 10^3/uL (1.4-6.5); Hemoglobin 11.4 g/dL (12.0-16.0); Mean Corp Hgb Conc. 33.5 g/dL (33.0-37.0); Mean Corpuscular Hgb 30.6 pg (27.0-31.0); Mean Corpuscular Volume 91.2 fL (81.0-99.0); Nucleated Red Blood Cells % 0 %; Platelet Count 114 10^3/uL (130-400); Red Blood Cell Count 3.73 10^6/uL (4.20-5.40); Red Cell Dist. Width 14.4 % (11.5-14.5); White Blood Cell Count 12.7 10^3/uL (4.8-10.8)
[2025-01-12] VITALS (9 sets, daily range): BP systolic 131–153; BP diastolic 68–89
[2025-01-12 00:07] LABS: ALT (SGPT) 13 U/L (0-35); AST (SGOT) 14 U/L (14-36); Albumin 3.9 g/dl (3.5-5.0); Alkaline Phosphatase 93 U/L (38-126); Blood Urea Nitrogen 30 mg/dl (7-17); Carbon Dioxide 20 mmol/L (22-30); Chloride 111 mmol/L (98-107); Estimated Creatinine Clearance 44 ml/min; Glucose 117 mg/dl (70-99); Lipase 94 U/L (23-300); Potassium 3.7 mmol/L (3.5-5.1); Sodium 141 mmol/L (135-145); Total Bilirubin 0.5 mg/dl (0.2-1.3); Total Protein 7.7 g/dl (6.3-8.2); eGFR 34.33
--- NOTE | 2025-01-12 01:11 | ED.GENMED ---
History of Present Illness
General
Chief Complaint: Abdominal Pain
Source: patient
Exam Limitations: none
Time Seen by Provider: 01/11/25 23:40
Nursing documentation reviewed up to this point in time: agreed with
History of Present Illness
History of Present Illness:
59-year-old female presents to the emergency department with abdominal pain and vomiting. She lives at [facility] and has a history of CVA. She has a PEG tube but has been eating normally.
Vital signs are stable. Patient not hypoxic
Nursing note reviewed. I agree with nursing documentation up to this point in time.
Home Meds and allergies reviewed.
NUMBER AND COMPLEXITY OF PROBLEMS ADDRESSED AT THE ENCOUNTER
Chronic conditions affecting care:
CAD
Cervical cancer
CVA (X 2)
Fibromyalgia
HTN
NIDDM
[place]
Hypothyroidism
Depression, PTSD
Rheumatoid arthritis
Neuropathy
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
Cellulitis,
Sleep apnea not compliant with CPAP
Renal calculus
Parotid mass
LVH
GI bleeding
Anemia
ED Past Surgical History:
Appendectomy
Bowel resection
Cardiac stent
Cervical Cancer with radiation and Chemo,
Hysterectomy
Left ankle
left knee surgery X 2
Left wrist surgery
Right knee surgery
Tonsillectomy
Colostomy changed to Ileostomy
Ear tubes
Right parotidectomy
Left great toe and second Toe amputation
� Acute Exacerbation and/or Progression of Chronic Illness: Chronic gastrointestinal
� Differential Diagnosis includes:
AMOUNT AND/OR COMPLEXITY OF DATA TO BE REVIEWED AND ANALYZED
I performed an independent evaluation of the following and my interpretation is:
EKG:
Pulse Ox: Not Hypoxic
Gambling Broker: Sinus Rhythm
CT:
X-rays:
Ultrasound:
Laboratory Studies: White blood cell count of 12.7 which is elevated from previous
Other:
Review of other/old records: PEG tube not in use
Clinical information was obtained by an independent historian:
Prescriptions/Medications Considered but not given:
Further testing considered but not performed:
RISK OF COMPLICATIONS AND/OR MORBIDITY OR MORTALITY OF PATIENT MANAGEMENT
Social determinants of health affecting care: Good Social Support lives at [facility]
Discussion with other providers:
Escalation of care including admission/observation vs risk of discharge considered: After being observed in the emergency department, patient is
CRITICAL CARE NOTE:
Total Time (exclusive of procedures):
Update:
Past History
Past History
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
Renal calculus, Parotid mass, LVH, GI bleeding, Anemia, PTSD); Negative Asthma or Hypercholesterolemia
ED Past Surgical History: Appendectomy, Bowel resection, Cardiac (Cardiac stent), Gynecological (Cervical Cancer with radiaion and Chemo, Hysterectomy), Orthopedic (Left ankle, left knee surgery X 2, Left wrist surgery, Right knee surgery, ),
Tonsilectomy (adnoids) and Other (Colostomy changed to Ileostomy, Ear tubes, Right parotidectomy, Left great toe and second Toe amputation)
Social History
Tobacco: Smoker (1ppd)
Alcohol: None
Drug: None
Personal:
Living: senior care
Employment: Not employed
Family History
Family History: Early CAD (in patient's father)
Phy Exam
General Physical Exam
General Presentation: mild distress
General age: appears older than age
General Skin: warm and dry
General Habitus: debilitated, elderly and frail
General Mental: usual mental status
General Hydration: appears well hydrated
General Chronic Disability: g-tube
ENT Exam
ENT Exam: EOMI, pharynx normal, neck supple and normocephalic
Eye Exam
Eye Exam: PERRL, cornea clear and conjunctiva normal
Cardiovascular Exam
Cardiovascular Exam: regular rate/rhythm, no edema, no murmur and normal peripheral pulses
Pulmonary Exam
Pulmonary Exam: lungs clear, no respiratory distress, no rales, no crackles, no rhonchi, no stridor, no wheezing and no cough
Gastrointestinal Exam
Gastrointestinal Exam: normal bowel sounds, non tender, soft, no organomegaly, no pulsatile mass and non distended
External Findings: gastrostomy tube and ileostomy
Neurological Exam
Neurological Exam: alert, oriented x3, no motor deficits and speech normal
Musculoskeletal Exam
Musculoskeletal Exam: full ROM and no edema
Skin Exam
Skin Exam: normal color, warm/dry, no rash and no petechia
Psychiatric Exam
Psychiatric Exam: normal mood/affect
Course
Orders/Labs/Results
Orders:
Orders
01/11/25 23:21
IV Insert/Care/Rem.- Treatment PRN
01/11/25 23:32
Complete Blood Count/With Diff Urgent
Comprehensive Metabolic Panel Urgent
Lipase Urgent
01/12/25 00:41
CT Abd/pelvis W Iv Cont Urgent
Comment:
Reason For Exam: diffuse abd pain
Abnormal Lab Results
01/11/25
23:32
WBC 12.7 H 10^3/uL
(4.8-10.8)
RBC 3.73 L 10^6/uL
(4.20-5.40)
Hgb 11.4 L g/dL
(12.0-16.0)
Hct 34.0 L %
(37.0-47.0)
Plt Count 114 L 10^3/uL
(130-400)
Absolute Neuts (auto) 10.6 H 10^3/uL
(1.4-6.5)
Absolute Lymphs (auto) 0.9 L 10^3/uL
(1.2-3.4)
Absolute Monos (auto) 0.8 H 10^3/uL
(0.1-0.6)
Neutrophils % 83.3 H %
(42.2-75.2)
Lymphocytes % 7.3 L %
(20.5-51.1)
Chloride 111 H mmol/L
(98-107)
Carbon Dioxide 20 L mmol/L
(22-30)
BUN 30 H mg/dl
(7-17)
Creatinine 1.7 H mg/dL
(0.6-1.0)
Glucose 117 H mg/dl
(70-99)
01/11/25 23:32
01/11/25 23:32
Vital Signs
Initial and Last Documented VS:
Initial Vital Signs
Temp Pulse Resp BP Pulse Ox
97.7 F 75 20 147/81 95
01/11/25 23:10 01/11/25 23:10 01/11/25 23:10 01/11/25 23:10 01/11/25 23:10
Last Documented Vital Signs
Temp Pulse Resp BP Pulse Ox
97.7 F 76 19 153/71 96
01/11/25 23:10 01/12/25 03:30 01/12/25 03:30 01/12/25 03:00 01/12/25 01:30
*Critical Care Note
Total Time (30-74mins, 75-104mins- exclusive of procedures): Not Applicable
ED Attending Note
-
Portions of this chart may have been created with voice recognition software.� Occasional wrong word or��sound alike� substitutions may have occurred due to the inherent limitations of voice recognition software.
Discharge Plan
Departure
Patient Disposition: Admit
Date of Disposition: 01/12/25
Time of Disposition: 03:32
Presentation/result/management discussed w/ accepting MD/DO: Hospitalist
Condition: Fair
Discharge Problem:
SBO (small bowel obstruction), Abdominal pain
Prescriptions:
No Action
clopidogrel [Plavix] 75 mg Tablet
75 mg PO DAILY
atorvastatin 40 mg tablet
40 mg PO HS
buspirone 5 mg Tablet
10 mg PO BID
acetaminophen 325 mg Tablet
650 mg PO Q4HPRN PRN (Reason: mild pain/temp>100F)
sodium bicarbonate 650 mg Tablet
650 mg PO Q8H
Fleet Enema 19-7 gram/118 mL Enema
118 ml HI DAILYPRN PRN (Reason: if dulcolax is ineffective after 24hrs)
gabapentin 300 mg capsule
300 mg PO TID
loratadine 10 mg Tablet
10 mg PO DAILY
cholecalciferol (vitamin D3) [Vitamin D3] 25 mcg (1,000 unit) Tablet
25 mcg PO DAILY
melatonin 5 mg Tablet
5 mg PO HS
guaifenesin 600 mg Tablet Extended Release 12hr
600 mg PO BID
loperamide 2 mg Tablet
2 mg PO Q6HPRN PRN (Reason: diarrhea)
amlodipine [Norvasc] 5 mg Tablet
5 mg PO DAILY
levothyroxine [Synthroid] 75 mcg Tablet
75 mcg PO DAILY
magnesium hydroxide [Milk of Magnesia] 400 mg/5 mL Suspension
2,400 mg PO [id number] PRN (Reason: constipation)
bisacodyl [Dulcolax (bisacodyl)] 10 mg Suppository
10 mg HI DAILYPRN PRN (Reason: if no bm aftr mom)
lidocaine 5 % Adhesive Patch,Medicated
1 patch TOPICAL DAILY
aspirin 81 mg Tablet,Chewable
81 mg PO DAILY
diclofenac sodium 1 % Gel
2 g TOPICAL TID
venlafaxine 225 mg Tablet Extended Release 24hr
225 mg PO DAILY
famotidine 20 mg tablet
20 mg PO HS
pantoprazole [address] for susp in packet
40 mg PO DAILY
cefdinir 300 mg capsule
300 mg PO BID Qty: 4 0RF
hydrocodone-acetaminophen 5-325 mg tablet
1 tab PO Q4HPRN PRN (Reason: moderate to severe pain) Qty: 10 0RF
Referrals:
UNKNOWN - PT DOES,NOT KNOW [Family Provider] -
Interventions
Interventions:
*Risk Screen - Suicide Last Done: 01/11/25 23:10
*General Assessment Last Done: 01/11/25 23:10
*Neglect/Abuse Screening Last Done: 01/11/25 23:10
*ED- Fall Risk Assessment Last Done: 01/11/25 23:10
*ED COVID-19 Vaccine History Last Done: 01/11/25 23:10
[id number] Assessment Last Done: 01/12/25 00:00
Discharge Date and Time
Print Language: BARBADIAN
--- NOTE | 2025-01-12 04:23 | HPS.HSE ---
Family Physician
-
Family Physician: NOT KNOW UNKNOWN - PT DOES
Chief Complaint
-
Abdominal pain
History of Present Illness
This is a 59-year-old female with past medical history of CVA with residual aphasia, CAD status post ND, history of cervical cancer status post radiation, colostomy with end ileostomy, status post PEG, RACHEL on CPAP presenting to the emergency
department with acute abdominal pain.
Patient has some aphasia and is difficult historian however she reports acute onset of abdominal pain on the day of admission. She has not been having any nausea or vomiting. She has a PEG tube which has not been used. She has a ileostomy which
is draining more fluid than usual about the same color and consistency. She denies fevers or chills. She denies any urinary symptoms.
In the ED she had a blood pressure of 150/71, temp of nine 7.7, pulse of 76 satting 98% on room air. CBC shows a white count of 2.7 but otherwise unremarkable. Electrolytes BUN/creatinine were unchanged from [address] scan
of her abdomen pelvis with subtotal colectomy, left lower quadrant end ileostomy, segmentally dilated small bowel proximal to the ostomy suspicious for at least partial small bowel obstruction although no discrete transition point identified.
Nonobstructing renal calculus stones, left common iliac artery occlusion, femoral femoral crossover graft.
Medical History
Past Medical History
Past Medical History: Reports Other
Additional Past Medical History:
ASCVD (PAD, CVA, CAD)
DM II
CKD 3B
Rheumatoid Arthritis
COPD
RACHEL
Peripheral neuropathy due to chemotherapy
Chronic pain syndrome/chronic opioid dependence
Radiation colitis
Cervical cancer -treated with radiation and chemotherapy
Nephrolithiasis
Chronic thrombocytopenia
Fibromyalgia
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
Parotid Mass
Hypothyroidism
Past Surgical History: Reports Other
Additional Past Surgical History:
Bowel resection and colostomy due to colon perforation
Colostomy Revision x 4 and ultimate Ileostomy (2021)
G-tube Placement
Hemiglossectomy & parotidectomy
Multiple Digital Amputations
Social History
Alcohol: None
Drug: None
Family History
Family History: Not pertinent
Allergies / Home Medications
Allergies reflects when Allergies were last updated in [facility].
Home Medications with original date entered in [facility]
Allergy/Medication List:
Allergies
Allergy/AdvReac Type Severity Reaction Status Date / Time
adhesive Allergy TAPE-rash Verified 01/11/25 23:09
and itching
infliximab [From Remicade] Allergy Anaphylaxis Verified 01/11/25 23:09
latex Allergy Rash, Verified 01/11/25 23:09
itching,
Hives
Penicillins Allergy Unknown, Verified 01/11/25 23:09
tolerated
amoxicillin
and
ampicillin
in the past
Sulfa (Sulfonamide Allergy Hives, rash Verified 01/11/25 23:09
Antibiotics)
Home Medications
clopidogrel 75 mg tablet (Plavix) 75 mg PO DAILY Heart Disease/Condition 06/25/23
acetaminophen 325 mg tablet 650 mg PO Q4HPRN PRN mild pain/temp>100F 01/22/24
atorvastatin 40 mg tablet 40 mg PO HS High Cholesterol 01/22/24
buspirone 5 mg tablet 10 mg PO BID Mental Health/Anxiety 01/22/24
cholecalciferol (vitamin D3) 25 mcg (1,000 unit) tablet (Vitamin D3) 25 mcg PO DAILY Supplement 01/22/24
gabapentin 300 mg capsule 300 mg PO TID Neurological Condition 01/22/24
guaifenesin 600 mg tablet, extended release 12 hr 600 mg PO BID Cough 01/22/24
loratadine 10 mg tablet 10 mg PO DAILY Allergies 01/22/24
melatonin 5 mg tablet 5 mg PO HS Sleep 01/22/24
sodium bicarbonate 650 mg tablet 650 mg PO Q8H Electrolyte Repletion 01/22/24
sodium phosphates 19 gram-7 gram/118 mL enema (Fleet Enema) 118 ml NV DAILYPRN PRN if dulcolax is ineffective after 24hrs 01/22/24
amlodipine 5 mg tablet (Norvasc) 5 mg PO DAILY Blood Pressure 07/15/24
aspirin 81 mg chewable tablet 81 mg PO DAILY Blood Clot Prevention/Tx 07/15/24
bisacodyl 10 mg rectal suppository (Dulcolax (bisacodyl)) 10 mg NV DAILYPRN PRN if no bm aftr mom 07/15/24
diclofenac sodium 1 % topical gel 2 g topical TID left shoulder 07/15/24
famotidine 20 mg tablet 20 mg PO HS Gastrointestinal Issue 07/15/24
levothyroxine 75 mcg tablet (Synthroid) 75 mcg PO DAILY Thyroid 07/15/24
lidocaine 5 % topical patch 1 patch topical DAILY left shoulder 07/15/24
loperamide 2 mg tablet 2 mg PO Q6HPRN PRN diarrhea 07/15/24
magnesium hydroxide 400 mg/5 mL oral suspension (Milk of Magnesia) 2,400 mg PO [id number] PRN constipation 07/15/24
pantoprazole 40 mg granules delayed-release for susp in packet 40 mg PO DAILY Gastrointestinal Issue 07/15/24
venlafaxine 225 mg tablet,extended release 24 hr 225 mg PO DAILY Depression 07/15/24
cefdinir 300 mg capsule 300 mg PO BID #4 caps 07/24/24
hydrocodone 5 mg-acetaminophen 325 mg tablet 1 tab PO Q4HPRN PRN moderate to severe pain #10 tabs 07/24/24
Review of Systems
-
History Source: Patient and Assisted
Constitutional: Reports No Symptoms
EENT: Reports No Symptoms
Respiratory: Reports No Symptoms
Cardiac: Reports No Symptoms
Abdomen/GI: Reports Abdominal Pain
: Reports No Symptoms
Musculoskeletal: Reports No Symptoms
Skin: Reports No Symptoms
Neurological: Reports No Symptoms
Endocrine: Reports No Symptoms
Hematologic/Lymphatic: Reports No Symptoms
Psych: Reports No Symptoms
Physical Exam
Vital Signs
Vital Signs
Temp Pulse Resp BP Pulse Ox
97.7 F 76 19 153/71 96
01/11/25 23:10 01/12/25 03:30 01/12/25 03:30 01/12/25 03:00 01/12/25 01:30
Physical Exam
General: Well Developed and Pain
HEENT: NormoCephalic, Anicteric, Moist mucous membranes, Atraumatic, PERRLA and No Ptosis; No Oxygen
Respiratory: Clear
Cardiac: S1/S2 and Regular Rhythm
Breast: Deferred by me
GI: Soft, Non Distended, Normal Bowel Sounds, Tender, Peg Tube and Ostomy (Left ileostomy with bag containing tach with liquid and gas)
Rectal: Deferred by Provider
Genito-urinary: Deferred by me
Musculoskeletal: No Clubbing, No Cyanosis and No Edema
Skin: Warm
Neuro: AO x 3, Nonfocal/grossly intact and Other (Aphasia)
Hematologic/Lymphatic: No Lymphadenopathy
Psych: Calm
Laboratory Results
-
01/11/25 23:32
01/11/25 23:32
Laboratory Results
Total Bilirubin 0.5 mg/dl (0.2-1.3) 01/11/25 23:32
AST 14 U/L (14-36) 01/11/25 23:32
ALT 13 U/L (0-35) 01/11/25 23:32
Alkaline Phosphatase 93 U/L (38-126) 01/11/25 23:32
Lipase 94 U/L (23-300) 01/11/25 23:32
Data Reviewed
-
CT Scan: Report Reviewed by me
Lab Data: Labs Reviewed by me
Old Records: Reviewed
Impression/Plan
-
IMPRESSION:
59-year-old female with past medical history significant for colectomy with end ileostomy and recurrent SBO's in the past, CAD, CKD, rheumatoid arthritis, RACHEL on CPAP history of CVA with residual aphasia and history of cervical cancer status post
radiation who presents to the emergency department with acute episode of abdominal pain and found to have partial small bowel obstruction on CT scan. No evidence of peritonitis on the CT scan. Abdomen is not distended with normal active bowel
sounds. It is tender to palpation. She does have copious amount of liquid in the ileostomy bag as well as gas in the ileostomy bag. She has not any vomiting episodes. The CT scan shows a segment of dilated small bowel proximal to the ostomy
suspicious for at least partial small bowel obstruction although no discrete transition point identified. She appears to be continuing to pass some liquid and gas still more consistent with a partial small bowel obstruction.
PLAN:
1. SBO - Suspect partial SBO likely on the basis of adhesions as proximal to the ileostomy with luca-ostomy findings.
- admit to med/surg
- NPO for now (patient does not use the peg and tolerates regular diet)
- No vomiting, no NG, consider PEG to suction if needed
- pain control and antiemetics
- gentle hydration for now
- will give necessary meds orally otherwise IV or hold
- consult general surgery
2. CAD/CVA
- continue plavix, aspirin, hold statin
- continue antihypertensives with hold parameters
3. RACHEL
- CPAP HS
4. Mood disorder
- continue buspirone and venlafaxine
DVT PPX - lovenox sq
Code status - DNR
[2025-01-12] MEDS: DILAUDID 0.5 MG IV ×4 (06:33→20:21)
--- NOTE | 2025-01-12 07:39 | EDRN ---
Patient taken to room 2116 on stretcher by sales support technician.
[2025-01-12] MEDS: D5LR 1000 IV (08:59)
[2025-01-12] MEDS: BUSPAR 10 MG PO ×2 (08:59→20:21)
[2025-01-12] MEDS: LOW STRENGTH ASPIRIN 81 MG PO (08:59)
[2025-01-12] MEDS: PLAVIX 75 MG PO (09:00)
[2025-01-12] MEDS: EFFEXOR XR 225 MG PO (09:00)
[2025-01-12] MEDS: NSS (PRESERVATIVE FREE) 10 ML IV (09:00)
[2025-01-12] MEDS: PROTONIX IV 40 MG IV (09:00)
[2025-01-12] MEDS: NEURONTIN 300 MG PO ×3 (09:00→22:45)
--- NOTE | 2025-01-12 09:13 | CON.GS ---
Addendum entered and electronically signed by Ajay Jones MD 01/12/25 10:05:
I saw and examined the patient independently.
The Rn Lab's note was reviewed and I agree with the note, assessment and plan except where noted below.
Comment: This is a 59-year-old female with multiple medical and surgical comorbidities and known recurrent small bowel obstructions that have been managed nonoperatively. She states that her abdominal pain began yesterday with nausea and vomiting
as well as coffee-ground emesis. There is some liquid output in the bag.
N.p.o., IV fluids. Can hold off on NG tube for now, okay for G-tube to gravity as needed.
Hold Plavix.
PPI, trend hemoglobin.
General Surgery will continue to follow.
Original Note:
Medical History
-
Chief Complaint: abdominal pain
History of Present Illness:
Ms Garsia is a 59 yo female is a 59 yo female with a h/o CAD, PAD with multiple digit amputations, CVA (on DAPT) with right hemiparesis, parotid mass tx surgically with PEG placed, Cervical ca tx with DANIEL, chemo, XRT, Radiation colitis with bowel
perforation s/p completion colectomy with end ileostomy complicated by parastomal hernia s/p re-siting of end ileostomy to left abdomen, and open ventral incisional hernia repair with unilateral [id number] by Dr Adkins. She has had 2 admission for
bowel obstructions over the 12 months which resolved with nonoperative measures. She presents from her SNF as she developed abdominal pain yesterday with nausea and vomiting. She was able to tolerate food on Sunday without difficulty. She is no
longer utilizing her PEG for TF and has been eating a regular diet. Yesterday she notes she had one episode of brown 'coffee' emesis along with abdominal pain prompting presentation to the ED. She was previously having liquid stools from her
ileostomy but notes that yesterday she did not have any significant outputs. She notes some improvement in pain and resolution of nausea currently. There is a small amount of stool in the ostomy appliance with some air.
Past Medical History
Past Medical History: CAD (pad), Cancer (cervical s/p surgery/chemo/xrt), COPD, CVA (right hemiparesis), HTN, Hypercholesterolemia, Hypothyroidism, Psychiatric (depression, anxiety), Renal Failure (CKD 3) and Other (RA, RACHEL with CPAP, radiation
colitis with perforation s/p ostomy, parotid mass tx surgically, dysarthria, peripheral neuropathy d/t chemo, recurrent SBO, nephrolithiasis, obesity)
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
with unilateral TAR [address] adkins), Orthopedic (multiple digit amputations (PAD)), Urological (ureteroscopy for stone removal) and Other (G-tube Placement Hemiglossectomy & parotidectomy )
Social History
Tobacco: Former Smoker
Alcohol: None
Living: Detention ([facility])
Family History
Family History: Reviewed & Not Pertinent
Allergies / Home Medications
Allergy/AdvReac Type Severity Reaction Status Date / Time
adhesive Allergy TAPE-rash Verified 01/11/25 23:09
and itching
infliximab [From Remicade] Allergy Anaphylaxis Verified 01/11/25 23:09
latex Allergy Rash, Verified 01/11/25 23:09
itching,
Hives
Penicillins Allergy Unknown, Verified 01/11/25 23:09
tolerated
amoxicillin
and
ampicillin
in the past
Sulfa (Sulfonamide Allergy Hives, rash Verified 01/11/25 23:09
Antibiotics)
�Medication �Instructions �Recorded �Confirmed �Type
clopidogrel 75 mg tablet (Plavix) 75 mg PO DAILY Heart 06/25/23 07/15/24 History
Disease/Condition
acetaminophen 325 mg tablet 650 mg PO Q4HPRN PRN mild 01/22/24 07/15/24 History
pain/temp>100F
atorvastatin 40 mg tablet 40 mg PO HS High Cholesterol 01/22/24 07/15/24 History
buspirone 5 mg tablet 10 mg PO BID Mental Health/Anxiety 01/22/24 07/15/24 History
cholecalciferol (vitamin D3) 25 25 mcg PO DAILY Supplement 01/22/24 07/15/24 History
mcg (1,000 unit) tablet (Vitamin
D3)
gabapentin 300 mg capsule 300 mg PO TID Neurological 01/22/24 07/15/24 History
Condition
guaifenesin 600 mg tablet, 600 mg PO BID Cough 01/22/24 07/15/24 History
extended release 12 hr
loratadine 10 mg tablet 10 mg PO DAILY Allergies 01/22/24 07/15/24 History
melatonin 5 mg tablet 5 mg PO HS Sleep 01/22/24 07/15/24 History
sodium bicarbonate 650 mg tablet 650 mg PO Q8H Electrolyte Repletion 01/22/24 07/15/24 History
sodium phosphates 19 gram-7 118 ml IN DAILYPRN PRN if dulcolax 01/22/24 07/15/24 History
gram/118 mL enema (Fleet Enema) is ineffective after 24hrs
amlodipine 5 mg tablet (Norvasc) 5 mg PO DAILY Blood Pressure 07/15/24 07/15/24 History
aspirin 81 mg chewable tablet 81 mg PO DAILY Blood Clot 07/15/24 07/15/24 History
Prevention/Tx
bisacodyl 10 mg rectal suppository 10 mg IN DAILYPRN PRN if no bm 07/15/24 07/15/24 History
(Dulcolax (bisacodyl)) aftr mom
diclofenac sodium 1 % topical gel 2 g topical TID left shoulder 07/15/24 07/15/24 History
famotidine 20 mg tablet 20 mg PO HS Gastrointestinal Issue 07/15/24 07/15/24 History
levothyroxine 75 mcg tablet 75 mcg PO DAILY Thyroid 07/15/24 07/15/24 History
(Synthroid)
lidocaine 5 % topical patch 1 patch topical DAILY left shoulder 07/15/24 07/15/24 History
loperamide 2 mg tablet 2 mg PO Q6HPRN PRN diarrhea 07/15/24 07/15/24 History
magnesium hydroxide 400 mg/5 mL 2,400 mg PO [id number] PRN 07/15/24 07/15/24 History
oral suspension (Milk of Magnesia) constipation
pantoprazole 40 mg granules 40 mg PO DAILY Gastrointestinal 07/15/24 07/15/24 History
delayed-release for susp in packet Issue
venlafaxine 225 mg tablet,extended 225 mg PO DAILY Depression 07/15/24 07/15/24 History
release 24 hr
cefdinir 300 mg capsule 300 mg PO BID #4 caps 07/24/24 Rx
hydrocodone 5 mg-acetaminophen 325 1 tab PO Q4HPRN PRN moderate to 07/24/24 Rx
mg tablet severe pain #10 tabs
Review of Systems
-
History Source: Patient and Transfer Record
All other systems: Negative unless noted
A 10 point review of systems was completed, and was negative except as per HPI.
Physical Exam
Vital Signs
Temp Pulse Resp BP Pulse Ox
98.2 F 74 16 135/76 93
01/12/25 07:52 01/12/25 07:52 01/12/25 07:52 01/12/25 07:52 01/12/25 07:52
01/11/25 01/12/25 01/13/25
06:59 06:59 06:59
Actual Weight 99.8 kg
Body Mass Index (BMI) 33.5
Lab Results
01/11/25 23:32
01/11/25 23:32
WBC 12.7 10^3/uL (4.8-10.8) H 01/11/25 23:32
Hgb 11.4 g/dL (12.0-16.0) L 01/11/25 23:32
Hct 34.0 % (37.0-47.0) L 01/11/25 23:32
Plt Count 114 10^3/uL (130-400) L 01/11/25 23:32
Abs Immat Gran (auto) 0.0 10^3/uL (0-0.05) 01/11/25 23:32
Neutrophils % 83.3 % (42.2-75.2) H 01/11/25 23:32
Physical Exam
General: Well Developed
HEENT: Normocephalic and Other (dry MM)
GI: Soft, Tender (mild generalized), Distended (mild) and Other (stoma to LUQ pink, budded with small amount of stool/flatus in bag)
Skin: Warm and Dry
Neuro: Awake, Alert, AO x 3 and Other (dysarthria)
Psych: Calm
Data Reviewed
-
CT Scan: Image Personally Visualized and interpreted, Report Reviewed by me, Discussed with Physician and Discussed with Patient
Labs: Labs Reviewed by me, Discussed with Physician and Discussed with Patient
Old Records: Reviewed
Assessment / Plan
-
59 yo female with a complex medical/surgical history who p/w partial SBO likely secondary to adhesions. Mild leukocytosis present. CT imaging reviewed with likely adhesive pSBO vs ileus involving the distal small bowel. Clinically and
radiographically no signs of ischemia or bowel perforation. Symptoms improved since presentation. ?coffee ground emesis prior to presentation vs undigested food. AFVSS.
No plans or indication for surgical intervention at this time. Given her extensive surgical and medical history will try to avoid an operative management unless absolutely necessary
-- Hold Plavix for now until consistent return of bowel function
-- NPO, IVF
-- G-tube clamped, can drain to gravity for symptoms
-- May need PO contrast study if no improvement
-- Minimize narcotics
--- NOTE | 2025-01-12 10:54 | W.PN.HOSP.TC ---
Today's Communication/Plan
-
No nausea, vomiting - agree with no need in NG tube, PEG cont to gravity
GI consult
serial H&H
PPI drip
Assessment / Plan
Assessment / Plan
59yo F with PMHX of CVA with PAD s/p iliac graft, L hemiparesis, PEG tube, HTN, CKD stage 3, RA, COPD, hypothyroidism, Hx of cervical CA s/p hysterectomy and RT, radiation colitis s/p colectomy and ileostomy, CAD, DM, parotid mass, RACHEL, depression,
neuropathy, recurrent SBO came form facility with vomiting and nausea, CT showed pSBO. No hematemesis as per ED and admission note. Patient currently does not use PEG for food
A/P:
#pSBO
seems to be resolving
advance diet as per general SX
#Reported hematemesis
Serial H&H
PPI drip
GI consult
Avoid anticoagulation and antiplatelets
#Mild leukocytosis
no fever, no symptoms of infection
monitor off Abx
#CKD stage 3
#RA#COPD not in exacerbation
#Hypoithyroidism
#Hx of CVA
#PAD
#HLD
#Neuropathy
#Anxiety d/o
cont home meds
except of above
DVT ppx SCDs
DNR/DNI
I have spent at least 59min reviewing chart, test results, communication with consultants and providing direct patient care
Anticipated Discharge: > 48 hours
Subjective/Interval History
-
Date of Service: January 12, 2025
Objective Data
-
Labs:
Laboratory Results
01/11/25 01/12/25
23:32 10:48
WBC 12.7 H
Hgb 11.4 L Pending
Hct 34.0 L Pending
Plt Count 114 L
Sodium 141
Potassium 3.7
Chloride 111 H
Carbon Dioxide 20 L
BUN 30 H
Creatinine 1.7 H
Glucose 117 H
Calcium 10.0
Total Bilirubin 0.5
AST 14
ALT 13
Alkaline Phosphatase 93
Vital Signs:
Vital Signs
Temp Pulse Resp BP Pulse Ox
98.2 F 74 16 135/76 93
01/12/25 07:52 01/12/25 07:52 01/12/25 07:52 01/12/25 07:52 01/12/25 07:52
Review of Systems
-
History Source: Patient
All other systems: Reviewed and negative
Abdomen/GI: Reports Abdominal Pain
Physical Exam
-
General: No Apparent Distress
HEENT: Normocephalic
Respiratory: Clear to Auscultation
Cardiac: Regular Rhythm
GI: Soft, Nontender, Nondistended, Peg Tube and Ostomy
Genito-urinary: No Costovertebral Tender
Musculoskeletal: No Clubbing, No Cyanosis and No Edema
Neuro: Awake, Alert, Oriented and AO x 3
Psych: Calm
[2025-01-12 11:10] LABS: Hematocrit 32.6 % (37.0-47.0)
[2025-01-12] MEDS: PROTONIX 100 IV (11:18)
--- NOTE | 2025-01-12 12:05 | CM ---
Patient seen at bedside. Patient verbalized Pain, CM updated nursing. Patient is a LTC patient at SNF; [facility]. CM will call to liaison and confirm ability to accept back to SNF. CM will continue to follow for discharge planning needs.
Plan; SNF; return to [facility].
--- NOTE | 2025-01-12 12:41 | CON.GI ---
Addendum entered and electronically signed by Ralph Trammell MD 01/12/25 13:55:
Patient seen and examined, agree with nurse practitioner note. Patient is a 59-year-old female with past medical history as noted including multiple surgeries with ileocolectomy end ileostomy with hernia repair and partial bowel obstruction the
past, who presents with abdominal pain and nausea, with vomiting of coffee-ground liquid. She was hospitalized at the end of last year with partial small bowel obstruction which resolved with supportive care. Overall she does okay, eats without
use of her PEG tube for about 9 months. She still having ostomy output, of dark green material now. Upon presentation at [facility] she had a CT scan that showed dilated loops of small bowel in the distal small bowel, small bowel structure could
not be excluded though no transition point was seen. Currently she is feeling okay, without any further vomiting. PEG tube was placed to gravity without significant output. On exam she has mild distention and tympany and reduced bowel sounds,
though only minimal diffuse tenderness without rebound.
1. Partial small bowel obstruction: Likely secondary to adhesions, with coffee-ground emesis likely from stasis and gastritis/esophagitis. There are no signs of brisk active bleeding now, has dark green material in her ostomy. At this point would
continue supportive care, PEG tube to gravity, PPI. Okay to continue aspirin and Plavix given history of CVA in the past and no brisk active bleeding. Will hold on EGD unless signs of brisk active bleeding.
Original Note:
Consultation
-
Date/Time Consultation Requested: 01/12/25 1050
Date/Time Consultation Performed: 01/12/25 1235
Requesting Provider: Dr. Haley
Performing Provider: Dr. Trammell/WAYNE Francois
Reason for Consultation: hematemesis
Medical History
Chief Complaint / HPI
Chief Complaint: Abdominal pain
History of Present Illness:
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
UTI, cervical cancer status post hysterectomy, chemoradiation, radiation colitis requiring colectomy with ileocolostomy done at [facility] in 2016, complicated by parastomal hernia status post re-sitting of end ileostomy to left abdomen open ventral
incisional hernia repair by Dr. Adkins (2021): CAD, diabetes, parotid mass with obstructive sleep apnea on CPAP, depression, anxiety, peripheral neuropathy, history of LA grade C esophagitis who is able to eat and drink without use of PEG tube for
greater than 9 months discharged to correction, who returns to the hospital with abdominal pain in the mid abdomen shift to the right as well as nausea and vomiting of brown liquid. During this entire time she was having output from her
ileostomy. She has not had any further vomiting since last evening. She is on aspirin and Plavix this is being held. She also takes pantoprazole 40 mg in the morning and Pepcid 20 mg in the evening. Are asked to evaluate for the same. CT of the
abdomen and pelvis was performed with Omnipaque contrast that show dilated loops of small bowel involving predominantly the distal small bowel. Small bowel obstruction cannot be excluded however transition point not identified. Ileostomy and
subtotal colectomy seen. Patient presented with WBC count 12.7, hemoglobin 11.4 down to 11.0, (patient with chronic anemia this is higher than her usual baseline) hematocrit currently 32.6, platelets 114, sodium 141, potassium 3.7, BUN 30,
creatinine 1.7, glucose 117, total bilirubin 0.5, AST 14, ALT 13, alk phos 93, albumin 3.9, lipase 94
Past Medical History
Past Medical History: Other (CVA 08/2023 with residual R hemiparesis (on Plavix), s/p PEG tube, HTN, CKD-3, RA, COPD, hypothyroidism, cervical cancer (s/p hysterectomy, chemo, radiation), radiation colitis requiring colectomy with ileostomy at [facility]
2016, CAD, NIDDM, parotid mass, RACHEL (on CPAP), depression, anxiety, neuropathy)
Past Surgical History: Other (Bowel resection and colostomy due to colon perforation Colostomy Revision x 4 and ultimate Ileostomy (2021) G-tube Placement Hemiglossectomy & parotidectomy Multiple Digital Amputations)
Social History
Tobacco: Smoker
Alcohol: None
Drug: None
Personal:
Living: [facility]
Employment: Disabled
Family History
Family History: Other (no family history of GI malignancies)
Allergies / Home Medications
Allergy/AdvReac Type Severity Reaction Status Date / Time
adhesive Allergy TAPE-rash Verified 01/11/25 23:09
and itching
infliximab [From Remicade] Allergy Anaphylaxis Verified 01/11/25 23:09
latex Allergy Rash, Verified 01/11/25 23:09
itching,
Hives
Penicillins Allergy Unknown, Verified 01/11/25 23:09
tolerated
amoxicillin
and
ampicillin
in the past
Sulfa (Sulfonamide Allergy Hives, rash Verified 01/11/25 23:09
Antibiotics)
�Medication �Instructions �Recorded
clopidogrel 75 mg tablet (Plavix) 75 mg PO DAILY Heart 06/25/23
Disease/Condition
acetaminophen 325 mg tablet 650 mg PO Q4HPRN PRN mild 01/22/24
pain/temp>100F
atorvastatin 40 mg tablet 40 mg PO HS High Cholesterol 01/22/24
buspirone 5 mg tablet 10 mg PO BID Mental Health/Anxiety 01/22/24
cholecalciferol (vitamin D3) 25 25 mcg PO DAILY Supplement 01/22/24
mcg (1,000 unit) tablet (Vitamin
D3)
gabapentin 300 mg capsule 300 mg PO TID Neurological 01/22/24
Condition
guaifenesin 600 mg tablet, 600 mg PO BID Cough 01/22/24
extended release 12 hr
loratadine 10 mg tablet 10 mg PO DAILY Allergies 01/22/24
melatonin 5 mg tablet 5 mg PO HS Sleep 01/22/24
sodium bicarbonate 650 mg tablet 650 mg PO Q8H Electrolyte Repletion 01/22/24
sodium phosphates 19 gram-[address] DAILYPRN PRN if dulcolax 01/22/24
gram/118 mL enema (Fleet Enema) is ineffective after 24hrs
amlodipine 5 mg tablet (Norvasc) 5 mg PO DAILY Blood Pressure 07/15/24
aspirin 81 mg chewable tablet 81 mg PO DAILY Blood Clot 07/15/24
Prevention/Tx
bisacodyl 10 mg rectal suppository [address] DAILYPRN PRN if no bm 07/15/24
(Dulcolax (bisacodyl)) aftr mom
diclofenac sodium 1 % topical gel 2 g topical TID left shoulder 07/15/24
famotidine 20 mg tablet 20 mg PO HS Gastrointestinal Issue 07/15/24
levothyroxine 75 mcg tablet 75 mcg PO DAILY Thyroid 07/15/24
(Synthroid)
lidocaine 5 % topical patch 1 patch topical DAILY left shoulder 07/15/24
loperamide 2 mg tablet 2 mg PO Q6HPRN PRN diarrhea 07/15/24
magnesium hydroxide 400 mg/5 mL 2,400 mg PO [id number] PRN 07/15/24
oral suspension (Milk of Magnesia) constipation
pantoprazole 40 mg granules 40 mg PO DAILY Gastrointestinal 07/15/24
delayed-release for susp in packet Issue
venlafaxine 225 mg tablet,extended 225 mg PO DAILY Depression 07/15/24
release 24 hr
cefdinir 300 mg capsule 300 mg PO BID #4 caps 07/24/24
hydrocodone 5 mg-acetaminophen 325 1 tab PO Q4HPRN PRN moderate to 07/24/24
mg tablet severe pain #10 tabs
Review of Systems
-
All other systems: A 12 pt ROS was Negative except as stated above in HPI
Vital Signs
Temp Pulse Resp BP Pulse Ox
98.2 F 74 16 135/76 93
01/12/25 07:52 01/12/25 07:52 01/12/25 07:52 01/12/25 07:52 01/12/25 07:52
Physical Exam
Exam
General: No Apparent Distress
HEENT: Anicteric
Respiratory: Clear (Anterior)
Cardiac: Regular Rhythm
GI: Soft, Non Distended, Tender (Epigastric/mild right upper quadrant) and Other (Very hypoactive bowel sounds, PEG tube left upper quadrant, ileostomy left lower abdomen (brown/dark liquid and semisoft stool present in bag))
Musculoskeletal: No Edema
Skin: Warm and Dry
Neuro: AO x 3 and Other (Dense right hemiparesis)
Psych: Calm
Results
WBC 12.7 10^3/uL (4.8-10.8) H 01/11/25 23:32
Hgb 11.0 g/dL (12.0-16.0) L 01/12/25 11:01
Hct 32.6 % (37.0-47.0) L 01/12/25 11:01
MCV 91.2 fL (81.0-99.0) 01/11/25 23:32
Plt Count 114 10^3/uL (130-400) L 01/11/25 23:32
Absolute Neuts (auto) 10.6 10^3/uL (1.4-6.5) H 01/11/25 23:32
Sodium 141 mmol/L (135-145) 01/11/25 23:32
Potassium 3.7 mmol/L (3.5-5.1) 01/11/25 23:32
Chloride 111 mmol/L (98-107) H 01/11/25 23:32
Carbon Dioxide 20 mmol/L (22-30) L 01/11/25 23:32
BUN 30 mg/dl (7-17) H 01/11/25 23:32
Creatinine 1.7 mg/dL (0.6-1.0) H 01/11/25 23:32
Calcium 10.0 mg/dl (8.4-10.2) 01/11/25 23:32
Total Bilirubin 0.5 mg/dl (0.2-1.3) 01/11/25 23:32
AST 14 U/L (14-36) 01/11/25 23:32
ALT 13 U/L (0-35) 01/11/25 23:32
Alkaline Phosphatase 93 U/L (38-126) 01/11/25 23:32
Lipase 94 U/L (23-300) 01/11/25 23:32
Diagnostic Image Results:
CT abdomen and pelvis with 80 cc of Omnipaque:
IMPRESSION:
1. There are dilated loops of small bowel involving predominantly the distal small bowel. Small bowel obstruction cannot be excluded however point of transition is not identified. There is an ileostomy and subtotal colectomy.
2. The left kidney is smaller than the right, unchanged. There are left renal calculi. There is no evidence of hydronephrosis or obstruction.
3. There is a femoral to femoral crossover graft, unchanged.
4. There are severe degenerative changes in the lumbar spine, unchanged.
Prior GI Procedures:
Endoscopy, 2018, Dr. Perez:
Normal duodenal bulb and second portion of the duodenum. Biopsied.
- Erythematous mucosa in the antrum. Biopsied.
- Small hiatal hernia.
- Normal cardia, gastric fundus and gastric body.
- LA Grade C reflux esophagitis.
- Z-line irregular, 40 cm from the incisors.
Flexible sigmoidoscopy, 2016, Dr. Prieto:
- Stricture at 18 cm proximal to the anus. Unable to traverse. Biopsied. Likely benign from radiation.
- Diffuse mild- moderate inflammation was found in the
rectum (less severe in the rectum) and in the sigmoid
colon, rule out radiation colitis. Biopsied.
Recommendation: - Discharge patient to home.
- Low residue diet as tolerated.
- Await pathology results.
- Refer to a colo-rectal surgeon
Colonoscopy, 2013, Dr. Minissale:
Inflamed, nodular, scarred and ulcerated mucosa.
Biopsied.
- Stricture colon. Follow up with surgery was recommended.
Assessment / Plan
-
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
UTI, cervical cancer status post hysterectomy, chemoradiation, radiation colitis requiring colectomy with ileocolostomy done at [facility] in 2016, complicated by parastomal hernia status post re-sitting of end ileostomy to left abdomen open ventral
incisional hernia repair by Dr. Adkins (2021): CAD, diabetes, parotid mass with obstructive sleep apnea on CPAP, depression, anxiety, peripheral neuropathy, history of LA grade C esophagitis who is able to eat and drink without use of PEG tube for
greater than 9 months discharged to correction, who returns to the hospital with abdominal pain in the mid abdomen shift to the right as well as nausea and vomiting of brown liquid. During this entire time she was having output from her
ileostomy. She has not had any further vomiting since last evening. She is on aspirin and Plavix this is being held. She also takes pantoprazole 40 mg in the morning and Pepcid 20 mg in the evening. Are asked to evaluate for the same. Patient
with stable hemoglobin. Started on pantoprazole drip. Aspirin and Plavix being held. There is dark brown liquid with semisoft stool in ileostomy bag. Still with some epigastric discomfort shifted to the right side.
Impression:
Nausea/vomiting with coffee-ground emesis
Epigastric/mild right upper quadrant discomfort
Dilated loops small bowel on CT imaging, however stool present in ileostomy
Plan:
-Continue pantoprazole drip
-Place PEG tube to gravity drainage
-Trend hemoglobin
-We would be okay to resume aspirin given prior history of stroke/PAD
-Surgery on board following ileus/partial small bowel obstruction
-Further recommendation to be forthcoming.
-
-
Thank you for consultation and allowing me to participate in the patient's care. Please call the secondary sp[employer] GI physician during the after hours with any questions or concerns.
[2025-01-12 12:45] LABS: TSH 2.05 uIU/ml (0.47-4.68)
[2025-01-12] MEDS: PEPCID 20 MG IV (22:45)
[2025-01-12] MEDS: NSS (PRESERVATIVE FREE) 8 ML IV (22:45)
[2025-01-13] VITALS (7 sets, daily range): BP systolic 155–169; BP diastolic 76–95
[2025-01-13] MEDS: D5LR 1000 IV (01:01)
[2025-01-13] MEDS: DILAUDID 0.5 MG IV ×3 (06:17→15:20)
[2025-01-13 09:13] LABS: ALT (SGPT) < 10 U/L (0-35); AST (SGOT) 13 U/L (14-36); Albumin 3.5 g/dl (3.5-5.0); Alkaline Phosphatase 87 U/L (38-126); Blood Urea Nitrogen 27 mg/dl (7-17); Calcium 9.7 mg/dl (8.4-10.2); Carbon Dioxide 21 mmol/L (22-30); Chloride 114 mmol/L (98-107); Estimated Creatinine Clearance 42 ml/min; Glucose 97 mg/dl (70-99); Potassium 3.6 mmol/L (3.5-5.1); Sodium 144 mmol/L (135-145); Total Bilirubin 0.6 mg/dl (0.2-1.3); Total Protein 7.1 g/dl (6.3-8.2); eGFR 32.06
[2025-01-13 09:25] LABS: % Basophils 0.4 % (0-2); % Immature Granulocytes 0.5 % (0-0.5); % Lymphocytes 10.6 % (20.5-51.1); % Monocytes 10.3 % (1.7-9.3); % Neutrophils 74.2 % (42.2-75.2); Absolute Eosinophils 0.3 10^3/uL (0-0.7); Absolute Lymphocytes 0.9 10^3/uL (1.2-3.4); Absolute Monocytes 0.8 10^3/uL (0.1-0.6); Absolute Neutrophils 6.1 10^3/uL (1.4-6.5); Hematocrit 33.2 % (37.0-47.0); Hemoglobin 10.8 g/dL (12.0-16.0); Mean Corp Hgb Conc. 32.5 g/dL (33.0-37.0); Mean Corpuscular Hgb 30.3 pg (27.0-31.0); Mean Corpuscular Volume 93.3 fL (81.0-99.0); Nucleated Red Blood Cells % 0 %; Red Blood Cell Count 3.56 10^6/uL (4.20-5.40); Red Cell Dist. Width 14.2 % (11.5-14.5); White Blood Cell Count 8.2 10^3/uL (4.8-10.8)
[2025-01-13] MEDS: NEURONTIN 300 MG PO ×3 (09:30→22:06)
[2025-01-13] MEDS: EFFEXOR XR 225 MG PO (09:30)
[2025-01-13] MEDS: BUSPAR 10 MG PO ×2 (09:30→20:36)
[2025-01-13] MEDS: LOW STRENGTH ASPIRIN 81 MG PO (09:30)
[2025-01-13] MEDS: PROTONIX IV 40 MG IV ×2 (09:44→20:35)
[2025-01-13] MEDS: NSS (PRESERVATIVE FREE) 10 ML IV ×2 (09:44→20:35)
--- NOTE | 2025-01-13 10:07 | W.PN.GS2 ---
Today's Communication / Plan
-
-- SBFT
Assessment / Plan
-
Patient is a 59 yo F with multiple abdominal surgeries, currently with end ileostomy and PEG tube who presents with a partial small bowel obstruction and adhesive pain
CT scan abdomen/pelvis (01/12/2025): Dilated loops of small bowel, area centralized around the umbilicus with what appears to be matted loops with possible subfascial adhesions, no pneumatosis or free air, study limited by lack of PO contrast
AVSS
Labs notable for a normalized WBC, stable Hb, stable CKD
Clinical signs of improvement with some passage of stool into the ostomy. Patient continues to complain of abdominal discomfort as well as nausea. Difficult to ascertain if this discomfort is due to a persistent low-level partial small bowel
obstruction versus adhesive/muscular discomfort (probably a combination of the two). Plan for a SBFT for diagnostic and therapeutic purposes.
-- SBFT
-- No plans for surgical intervention
-- Continue to hold Plavix for now until diet advancement
Subjective Data
-
Date of Service: January 13, 2025
Continued crampy periumbilical abdominal pain. Patient reports issues with nausea and vomiting overnight. Afebrile. Ostomy output. No ambulation.
Objective Data
-
Intake and Output
01/12/25 01/13/25 01/14/25
06:59 06:59 06:59
Intake Total 900 / 900
Output Total 1050 / 1050
Balance -150 / -150
Intake:
IV fluids (Total) 900 / 900
Output:
Liquid stool amount 800 / 800
Colostomy 800 / 800
Gastrointestinal tube output ( 250 / 250
Total)
Gastrostomy 250 / 250
Other:
How many times incontinent 1
MODERATE amount urine
How many times incontinent 2
SATURATED amount urine
Vital Signs
Temp Pulse Resp BP Pulse Ox
97.4 F 64 18 156/80 98
01/13/25 07:35 01/13/25 07:35 01/13/25 07:35 01/13/25 07:35 01/13/25 07:35
Lab Results
01/13/25 08:34
01/13/25 08:51
Calcium 9.7 mg/dl (8.4-10.2) 01/13/25 08:51
Magnesium 2.0 mg/dl (1.6-2.3) 01/13/25 08:51
Total Bilirubin 0.6 mg/dl (0.2-1.3) 01/13/25 08:51
AST 13 U/L (14-36) L 01/13/25 08:51
ALT < 10 U/L (0-35) 01/13/25 08:51
Alkaline Phosphatase 87 U/L (38-126) 01/13/25 08:51
Total Protein 7.1 g/dl (6.3-8.2) 01/13/25 08:51
Albumin 3.5 g/dl (3.5-5.0) 01/13/25 08:51
Physical Exam
-
Gen: NAD
Abd: soft, tender in lower luca-umbilical area, ND/obese, no diffuse peritonitis, ostomy retracted, PPV, thin stool in appliance, G-tube to gravity with gastric outputs
Patient has a carrasco catheter: No
Patient has a central line: No
--- NOTE | 2025-01-13 11:25 | W.PN.HOSP.TC ---
Today's Communication/Plan
-
SBFT as per GenSx
cont IVF
Assessment / Plan
Assessment / Plan
59yo F with PMHX of CVA with PAD s/p iliac graft, L hemiparesis, PEG tube, HTN, CKD stage 3, RA, COPD, hypothyroidism, Hx of cervical CA s/p hysterectomy and RT, radiation colitis s/p colectomy and ileostomy, CAD, DM, parotid mass, RACHEL, depression,
neuropathy, recurrent SBO came form facility with vomiting and nausea, CT showed pSBO. No hematemesis as per ED and admission note. Patient currently does not use PEG for food
A/P:
#pSBO
seems to be resolving
advance diet as per general SX
#Reported hematemesis
Serial H&H
PPI IV BID
GI consult: without overt bleeding - can cont ASA
Avoid anticoagulation
#Mild leukocytosis
resolved off Abx
no fever, no symptoms of infection
#Chronic mild thrombocytopenia
follow CBC
since at least 2011
#CKD stage 3
#RA#COPD not in exacerbation
#Hypoithyroidism
#Hx of CVA
#PAD
#HLD
#Neuropathy
#Anxiety d/o
cont home meds
except of above
DVT ppx SCDs
DNR/DNI
I have spent at least 59min reviewing chart, test results, communication with consultants and providing direct patient care
Anticipated Discharge: > 48 hours
Subjective/Interval History
-
Date of Service: January 13, 2025
Objective Data
-
Labs:
Laboratory Results
01/13/25 01/13/25 01/13/25
06:45 08:34 08:51
WBC Cancelled 8.2
Hgb Cancelled 10.8 L
Hct Cancelled 33.2 L
Plt Count Cancelled Pending
Sodium Cancelled 144
Potassium Cancelled 3.6
Chloride Cancelled 114 H
Carbon Dioxide Cancelled 21 L
BUN Cancelled 27 H
Creatinine Cancelled 1.8 H
Glucose Cancelled 97
Calcium Cancelled 9.7
Total Bilirubin Cancelled 0.6
AST Cancelled 13 L
ALT Cancelled < 10
Alkaline Phosphatase Cancelled 87
Vital Signs:
Vital Signs
Temp Pulse Resp BP Pulse Ox
97.4 F 64 18 156/80 98
01/13/25 07:35 01/13/25 07:35 01/13/25 07:35 01/13/25 07:35 01/13/25 07:35
I&O
01/12/25 01/13/25 01/14/25
06:59 06:59 06:59
Intake Total 900 / 900
Output Total 1050 / 1050
Balance -150 / -150
Review of Systems
-
History Source: Patient
All other systems: Reviewed and negative
Abdomen/GI: Reports Abdominal Pain
Physical Exam
-
General: Comfortable
HEENT: Normocephalic
Cardiac: Regular Rhythm
GI: Soft, Nondistended, Tender, Peg Tube and Ostomy
Musculoskeletal: No Clubbing, No Cyanosis and No Edema
Neuro: Awake, Alert, Oriented and AO x 3
Psych: Calm
--- NOTE | 2025-01-13 11:50 | CM ---
Patient remains NPO per nursing. CM spoke with liaison from [facility] who confirmed bed hold status. CM will continue to follow for discharge planning needs.
Plan; return to SNF.
--- NOTE | 2025-01-13 13:14 | W.PN.GI.CBS2 ---
Addendum entered and electronically signed by Ericka Taylor DO 01/13/25 17:35:
The patient was seen and examined by me independently in collaboration with the nurse practitioner.
Past medical history/social history/medications/allergies/family history reviewed.
Lab data and imaging data reviewed.
Patient seen in follow-up, continues to complain of significant pain, located in her right lower quadrant of her abdomen. Reports nausea and vomiting overnight. Hemoglobin 10.8 this morning down from 11 yesterday, BUN/Cr. 27/1.8.
Given her complex surgical history as well as history of bowel pSBO and adhesions, very difficult to ascertain the etiology of her current presentation. She is having a fair amount of liquid output in her ostomy. She underwent small bowel
follow-through today, no evidence of obstruction, contrast material noted accumulating within the ileostomy bag. Given these findings, suspect most likely adhesion-related pain.
-Continue antiemetics prn
-supportive care, will defer further recommendations to general surgery
-GI will sign off, please call with questions
Original Note:
Today's Communication / Plan
-
await SBFT study completed results pending
noted vomiting and large amount ostomy drainage on return from SBFT
will return peg to gravity drainage
PPI BID
10.8 cont to trend
cont ASA and Plavix remains on hold
surgery following
Assessment / Plan
-
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
UTI, cervical cancer status post hysterectomy, chemoradiation, radiation colitis requiring colectomy with ileocolostomy done at [facility] in 2015, complicated by parastomal hernia status post re-sitting of end ileostomy to left abdomen open ventral
incisional hernia repair by Dr. Adkins (2021): CAD, diabetes, parotid mass with obstructive sleep apnea on CPAP, depression, anxiety, peripheral neuropathy, history of LA grade C esophagitis who is able to eat and drink without use of PEG tube for
greater than 9 months discharged to senior care, who returns to the hospital with abdominal pain in the mid abdomen shift to the right as well as nausea and vomiting of brown liquid. During this entire time she was having output from her
ileostomy. She is on aspirin and Plavix now being held. She also takes pantoprazole 40 mg in the morning and Pepcid 20 mg in the evening. 01/12/25- CT dilated loops of SB predominantly distal SB. SBO note excluded though no transition point
noted. There is an ileostomy and subtotal colectomy.
Impression:
Nausea/vomiting with coffee-ground emesis on admission
Epigastric/mild right upper quadrant discomfort
Dilated loops small bowel on CT imaging, however stool present in ileostomy
Plan:
await SBFT study completed results pending
noted vomiting and large amount ostomy drainage on return from SBFT
will return peg to gravity drainage
PPI BID
10.8 cont to trend
cont ASA and Plavix remains on hold
surgery following
Subjective
Subjective
Date of Service: January 13, 2025
01/13 brown liquid stool, NPO noted with vomiting green bile and ostomy bag overflowing after return from radiology
Objective
Data Reviewed
Laboratory Data:
Laboratory Results
01/13/25 08:34
01/13/25 08:51
Laboratory Results
Magnesium 2.0 mg/dl (1.6-2.3) 01/13/25 08:51
Total Bilirubin 0.6 mg/dl (0.2-1.3) 01/13/25 08:51
AST 13 U/L (14-36) L 01/13/25 08:51
ALT < 10 U/L (0-35) 01/13/25 08:51
Alkaline Phosphatase 87 U/L (38-126) 01/13/25 08:51
Lipase 94 U/L (23-300) 03/30/25 23:32
Vital Signs and I&O:
Vital Signs
Temp Pulse Resp BP Pulse Ox
97.4 F 64 18 156/80 98
01/13/25 07:35 01/13/25 07:35 01/13/25 07:35 01/13/25 07:35 01/13/25 07:35
I&O
01/12/25 01/13/25 01/14/25
06:59 06:59 06:59
Intake Total 900 / 900
Output Total 1050 / 1050
Balance -150 / -150
Physical Exam
Physical Exam
HEENT: Anicteric and Moist mucous membranes
Cardiology: Normal Sinus Rhythm
Pulmonary: Clear
GI: Soft, Distended, Tender (diffuse ), Normal Bowel Sounds and Other (ostomy with orange tinged clear fluid, peg placed to gravity with green drainage )
Extremities: Edema (trace)
Neuro: Non Focal
[2025-01-13 13:28] LABS: Platelet Count 83 10^3/uL (130-400)
[2025-01-13 15:09] LABS: Troponin I 0.015 ng/ml
[2025-01-13] MEDS: FLUSH (NSS) 2 FLUSH IV (15:20)
--- NOTE | 2025-01-13 15:53 | PTCARENOTE ---
pt returned from radiology at 1440-VS: 98.3-71-16-163/87, 97% on RA. pt c/o chest discomfort. Dr Haley at bedside. Ileostomy draining large amounts of greenish brown liquid-ostomy appliance detached and leaking all over sheets and gown. pt
given complete bed bath, linens changed and new ostomy appliance replaced. Pt then vomited large amount of greenish-brown liquid. EKG completed and telemetry placed, reading SR 70's. Medicated w/IV Dilaudid per DEC. G-tube reconnected to gravity
drainage and immediate output is greenish-brown liquid. care ongoing.
[2025-01-13] MEDS: ASPIRIN 325 MG PO (16:12)
[2025-01-13] MEDS: PEPCID 20 MG IV (22:05)
[2025-01-13] MEDS: NSS (PRESERVATIVE FREE) 8 ML IV (22:05)
[2025-01-13 23:21] LABS: Troponin I 0.014 ng/ml
[2025-01-14] MEDS: D5LR 1000 IV ×2 (00:02→23:28)
[2025-01-14] MEDS: D5LR IV ×3 (00:39→23:27)
[2025-01-14 03:10] VITALS: BP 153/82
[2025-01-14] MEDS: DILAUDID 0.5 MG IV ×5 (03:31→23:55)
[2025-01-14 07:30] VITALS: BP 172/89
[2025-01-14 08:09] LABS: Troponin I 0.016 ng/ml
[2025-01-14 08:17] LABS: ALT (SGPT) < 10 U/L (0-35); AST (SGOT) 14 U/L (14-36); Albumin 4.1 g/dl (3.5-5.0); Alkaline Phosphatase 89 U/L (38-126); Blood Urea Nitrogen 26 mg/dl (7-17); Calcium 10.2 mg/dl (8.4-10.2); Carbon Dioxide 19 mmol/L (22-30); Chloride 114 mmol/L (98-107); Estimated Creatinine Clearance 44 ml/min; Glucose 96 mg/dl (70-99); Potassium 3.6 mmol/L (3.5-5.1); Sodium 146 mmol/L (135-145); Total Bilirubin 0.5 mg/dl (0.2-1.3); Total Protein 7.8 g/dl (6.3-8.2); eGFR 34.33
[2025-01-14] MEDS: LOW STRENGTH ASPIRIN 81 MG PO (08:38)
[2025-01-14] MEDS: BUSPAR 10 MG PO ×2 (08:38→19:50)
[2025-01-14] MEDS: NEURONTIN 300 MG PO ×3 (08:38→21:50)
[2025-01-14] MEDS: EFFEXOR XR 225 MG PO (08:39)
[2025-01-14] MEDS: NSS (PRESERVATIVE FREE) 10 ML IV ×2 (08:39→19:45)
[2025-01-14] MEDS: PROTONIX IV 40 MG IV ×2 (08:39→19:50)
[2025-01-14 09:28] LABS: % Basophils 0.3 % (0-2); % Eosinophils 4.8 % (0-6); % Immature Granulocytes 0.3 % (0-0.5); % Lymphocytes 13.2 % (20.5-51.1); % Monocytes 14.4 % (1.7-9.3); Absolute Eosinophils 0.3 10^3/uL (0-0.7); Absolute Lymphocytes 0.9 10^3/uL (1.2-3.4); Absolute Neutrophils 4.5 10^3/uL (1.4-6.5); Hematocrit 33.9 % (37.0-47.0); Hemoglobin 11.1 g/dL (12.0-16.0); Mean Corp Hgb Conc. 32.7 g/dL (33.0-37.0); Mean Corpuscular Hgb 30.4 pg (27.0-31.0); Mean Corpuscular Volume 92.9 fL (81.0-99.0); Mean Platelet Volume 8.7 fL (7.4-10.4); Nucleated Red Blood Cells % 0 %; Platelet Count 87 10^3/uL (130-400); Red Blood Cell Count 3.65 10^6/uL (4.20-5.40); Red Cell Dist. Width 14.1 % (11.5-14.5); White Blood Cell Count 6.7 10^3/uL (4.8-10.8)
--- NOTE | 2025-01-14 10:30 | W.PN.HOSP.TC ---
Today's Communication/Plan
-
start nifedipine
holding Plavix until allowed to take by surgery
Increase IVF with mild hypernatrremia
Assessment / Plan
Assessment / Plan
59yo F with PMHX of chronic abdominal pain 2/2 adhesions and multiple episodes of ileus and SBO, CVA with PAD s/p iliac graft, L hemiparesis, PEG tube, HTN, CKD stage 3, RA, COPD, hypothyroidism, Hx of cervical CA s/p hysterectomy and RT, radiation
colitis s/p colectomy and ileostomy, CAD, DM, parotid mass, RACHEL, depression, neuropathy, recurrent SBO came form facility with vomiting and nausea, CT showed pSBO. No hematemesis as per ED and admission note. Patient currently does not use PEG for
food
A/P:
#pSBO
seems to be resolving
advance diet as per general SX
SBFT on 01/13/25 showed no obstruction, however patient developed vomiting after contrast injection to PEG
COncern for possible pain and nausea 2/2 significant adhesions
Lipase WNL
#Reported hematemesis
Serial H&H
PPI IV BID
GI consult: without overt bleeding - can cont ASA, signed off as Hgb stable
Avoid anticoagulation
#Mild leukocytosis
resolved off Abx
no fever, no symptoms of infection
#Chronic mild thrombocytopenia
follow CBC
since at least 2011
BM biopsy in 2013 unremarkable
#CKD stage 3
#RA
#COPD not in exacerbation
#Hypothyroidism
#Hx of CVA
#PAD s/p femoral to femoral crossover graft
#HLD
#Neuropathy
#Anxiety d/o
cont home meds
except of above
#essential HTN
start nifedipine
DVT ppx SCDs
DNR/DNI
I have spent at least 59min reviewing chart, test results, communication with consultants and providing direct patient care
Anticipated Discharge: 24 - 48 hours
Subjective/Interval History
-
Date of Service: January 14, 2025
Objective Data
-
Labs:
Laboratory Results
01/14/25 01/14/25
07:09 08:35
WBC 6.7
Hgb 11.1 L
Hct 33.9 L
Plt Count 87 L
Sodium 146 H
Potassium 3.6
Chloride 114 H
Carbon Dioxide 19 L
BUN 26 H
Creatinine 1.7 H
Glucose 96
Calcium 10.2
Total Bilirubin 0.5
AST 14
ALT < 10
Alkaline Phosphatase 89
Vital Signs:
Vital Signs
Temp Pulse Resp BP Pulse Ox
97.3 F 62 20 172/89 100
01/14/25 07:30 01/14/25 07:30 01/14/25 07:30 01/14/25 07:30 01/14/25 07:30
I&O
01/13/25 01/14/25 01/15/25
06:59 06:59 06:59
Intake Total 900 / 900
Output Total 1050 / 1050 800 / 800
Balance -150 / -150 -800 / -800
Review of Systems
-
History Source: Patient
Abdomen/GI: Reports Abdominal Pain
Physical Exam
-
General: Comfortable
HEENT: Atraumatic
Respiratory: Clear to Auscultation
Cardiac: Regular Rhythm
GI: Soft, Tender, Peg Tube and Ostomy
Neuro: Awake, Alert and Other (dysarthria chronic)
Psych: Calm
[2025-01-14 11:32] VITALS: BP 146/85
--- NOTE | 2025-01-14 11:35 | CM ---
Reviewed the chart notes. Patient's diet now clear liquid. CM continues to be available to patient/family and is monitoring medical plan for needs at discharge.
Plan: Discharge back to [facility] when medically stable. No precert required.
[2025-01-14] MEDS: PROCARDIA XL (EXTENDED RELEASE) 30 MG PO (11:36)
--- NOTE | 2025-01-14 14:29 | W.PN.GS2 ---
Today's Communication / Plan
-
NPO with sips and chips, g-tube to grav
Assessment / Plan
-
Patient is a 59 yo F with multiple abdominal surgeries, currently with end ileostomy and PEG tube who presents with a partial small bowel obstruction and adhesive pain
CT scan abdomen/pelvis (01/12/2025): Dilated loops of small bowel, area centralized around the umbilicus with what appears to be matted loops with possible subfascial adhesions, no pneumatosis or free air, study limited by lack of PO contrast
AVSS
Labs notable for a normalized WBC, stable Hb, stable CKD
Clinical signs of improvement with some passage of stool into the ostomy. Patient continues to complain of abdominal discomfort, nausea now resolved. Difficult to ascertain if this discomfort is due to a persistent low-level partial small bowel
obstruction versus adhesive/muscular discomfort (probably a combination of the two). SBFT yesterday with no sign of obstruction, massive liwquid stoma output post-study as well as emesis x1. g-tube drainage is non-bilious.
-- Improving
-- Cont NPO with spis today to allow further decompression, g-tube to grav, anticipate adv to cld tomorrow
-- No plans for surgical intervention
-- Continue to hold Plavix for now until diet advancement
Subjective Data
-
Date of Service: January 14, 2025
Nausea resolvedwith g-tube to grav, baseline chronic ab pain remains, lots of stoma output after sbft study yesterday (bag blowout x2 and projectile liquid from exposed stoma during appliance change), as well as vomiting
Objective Data
-
Intake and Output
01/13/25 01/14/25 01/15/25
06:59 06:59 06:59
Intake Total 900 / 900 720 / 720
Output Total 1050 / 1050 800 / 800
Balance -150 / -150 -800 / -800 720 / 720
Intake:
Oral fluids 720 / 720
IV fluids (Total) 900 / 900
Output:
Liquid stool amount 800 / 800 350 / 350
Colostomy 800 / 800 350 / 350
Gastrointestinal tube output ( 250 / 250 450 / 450
Total)
Gastrostomy 250 / 250 450 / 450
Other:
How many times incontinent 1 1 1
MODERATE amount urine
How many times incontinent 2 1 1
SATURATED amount urine
Vital Signs
Temp Pulse Resp BP Pulse Ox
97.6 F 59 20 146/85 92
01/14/25 11:32 01/14/25 11:32 01/14/25 11:32 01/14/25 11:36 01/14/25 11:32
Lab Results
01/14/25 08:35
01/14/25 07:09
Calcium 10.2 mg/dl (8.4-10.2) 01/14/25 07:09
Magnesium 2.0 mg/dl (1.6-2.3) 01/13/25 08:51
Total Bilirubin 0.5 mg/dl (0.2-1.3) 01/14/25 07:09
AST 14 U/L (14-36) 01/14/25 07:09
ALT < 10 U/L (0-35) 01/14/25 07:09
Alkaline Phosphatase 89 U/L (38-126) 01/14/25 07:09
Total Protein 7.8 g/dl (6.3-8.2) 01/14/25 07:09
Albumin 4.1 g/dl (3.5-5.0) 01/14/25 07:09
Physical Exam
-
Gen: NAd
Abd: softly distended, stoma ppv with liquid stool, g-tube bag with thin clear/yellow gastric juice/contrast (non-bilious)
[2025-01-14 15:33] VITALS: BP 140/83
[2025-01-14] MEDS: D5LR 500 IV (16:11)
[2025-01-14 19:20] VITALS: BP 163/84
[2025-01-14] MEDS: PEPCID 20 MG IV (21:55)
[2025-01-14] MEDS: NSS (PRESERVATIVE FREE) 8 ML IV (21:55)
[2025-01-14 23:47] VITALS: BP 166/92
[2025-01-15 03:09] VITALS: BP 158/84
[2025-01-15] MEDS: DILAUDID 0.5 MG IV ×3 (04:10→22:20)
[2025-01-15 07:24] LABS: % Basophils 0.2 % (0-2); % Eosinophils 6.2 % (0-6); % Immature Granulocytes 0.2 % (0-0.5); % Lymphocytes 17.3 % (20.5-51.1); % Neutrophils 69.1 % (42.2-75.2); Absolute Eosinophils 0.3 10^3/uL (0-0.7); Absolute Lymphocytes 0.9 10^3/uL (1.2-3.4); Absolute Monocytes 0.4 10^3/uL (0.1-0.6); Absolute Neutrophils 3.5 10^3/uL (1.4-6.5); Hematocrit 30.4 % (37.0-47.0); Hemoglobin 10.1 g/dL (12.0-16.0); Mean Corp Hgb Conc. 33.2 g/dL (33.0-37.0); Mean Corpuscular Hgb 30.4 pg (27.0-31.0); Mean Corpuscular Volume 91.6 fL (81.0-99.0); Mean Platelet Volume 8.7 fL (7.4-10.4); Nucleated Red Blood Cells % 0 %; Platelet Count 100 10^3/uL (130-400); Red Blood Cell Count 3.32 10^6/uL (4.20-5.40); Red Cell Dist. Width 13.8 % (11.5-14.5)
[2025-01-15 07:44] LABS: ALT (SGPT) < 10 U/L (0-35); AST (SGOT) 13 U/L (14-36); Albumin 3.8 g/dl (3.5-5.0); Alkaline Phosphatase 84 U/L (38-126); Blood Urea Nitrogen 21 mg/dl (7-17); Calcium 9.8 mg/dl (8.4-10.2); Carbon Dioxide 23 mmol/L (22-30); Chloride 111 mmol/L (98-107); Estimated Creatinine Clearance 47 ml/min; Glucose 102 mg/dl (70-99); Potassium 3.3 mmol/L (3.5-5.1); Sodium 145 mmol/L (135-145); Total Bilirubin 0.4 mg/dl (0.2-1.3); Total Protein 7.4 g/dl (6.3-8.2); eGFR 36.92
[2025-01-15 08:30] VITALS: BP 175/82
[2025-01-15 08:59] LABS: Magnesium 1.7 mg/dl (1.6-2.3)
--- NOTE | 2025-01-15 09:05 | W.PN.GS2 ---
Today's Communication / Plan
-
`
Assessment / Plan
-
Assessment: 59 yo F with multiple abdominal surgeries, currently with end ileostomy and PEG tube who presents with a partial small bowel obstruction and adhesive pain
follow up SBFT negative for residual obstruction or significant pSBO
ostomy functioning well
Plan: clamp Gtube continuously
start full liquid diet
may resume PO meds including clopidogrel from surgical standpoint
Subjective Data
-
Date of Service: January 15, 2025
pt seen and examined.
complains of RLQ abd pain
no nausea
would like to start liquid diet; reports continued poor appetite
Objective Data
-
Intake and Output
01/14/25 01/15/25 01/16/25
06:59 06:59 06:59
Intake Total 1830 / 1830
Output Total 800 / 800 950 / 950
Balance -800 / -800 880 / 880
Intake:
Oral fluids 720 / 720
IV fluids (Total) 1020 / 1020
Amount instilled into GI Tube ( 90 / 90
Total)
Gastrostomy 90 / 90
Output:
Liquid stool amount 350 / 350 100 / 100
Colostomy 350 / 350 100 / 100
Gastrointestinal tube output ( 450 / 450 850 / 850
Total)
Gastrostomy 450 / 450 850 / 850
Other:
How many times incontinent 1 1
MODERATE amount urine
How many times incontinent 1 3
SATURATED amount urine
Vital Signs
Temp Pulse Resp BP Pulse Ox
97.7 F 57 18 175/82 98
01/15/25 08:30 01/15/25 08:30 01/15/25 08:30 01/15/25 08:30 01/15/25 08:30
Lab Results
01/15/25 07:07
01/15/25 07:07
Calcium 9.8 mg/dl (8.4-10.2) 01/15/25 07:07
Magnesium 1.7 mg/dl (1.6-2.3) 01/15/25 07:07
Total Bilirubin 0.4 mg/dl (0.2-1.3) 01/15/25 07:07
AST 13 U/L (14-36) L 01/15/25 07:07
ALT < 10 U/L (0-35) 01/15/25 07:07
Alkaline Phosphatase 84 U/L (38-126) 01/15/25 07:07
Total Protein 7.4 g/dl (6.3-8.2) 01/15/25 07:07
Albumin 3.8 g/dl (3.5-5.0) 01/15/25 07:07
Physical Exam
-
NAD AAOx3
ABD: soft, ND, localizing tenderness to RLQ but no rebound/guarding
left sided ileostomy -> + stool
Gtube to gravity with clear liquid in bag - non bilious/non enteric
[2025-01-15] MEDS: KCL 270 MEQ IV (09:44)
[2025-01-15] MEDS: EFFEXOR XR 225 MG PO (09:45)
[2025-01-15] MEDS: BUSPAR 10 MG PO ×2 (09:46→20:17)
[2025-01-15] MEDS: PROCARDIA XL (EXTENDED RELEASE) 30 MG PO (09:46)
[2025-01-15] MEDS: LOW STRENGTH ASPIRIN 81 MG PO (09:46)
[2025-01-15] MEDS: PROTONIX IV 40 MG IV ×2 (09:51→20:15)
[2025-01-15] MEDS: NEURONTIN 300 MG PO ×3 (09:51→21:55)
[2025-01-15] MEDS: NSS (PRESERVATIVE FREE) 10 ML IV ×2 (09:52→20:17)
--- NOTE | 2025-01-15 09:52 | W.PN.HOSP.TC ---
Today's Communication/Plan
-
restarted Plavix and will monitor on diet as per surgical advise
Assessment / Plan
Assessment / Plan
59yo F with PMHX of chronic abdominal pain 2/2 adhesions and multiple episodes of ileus and SBO, CVA with PAD s/p iliac graft, L hemiparesis, PEG tube, HTN, CKD stage 3, RA, COPD, hypothyroidism, Hx of cervical CA s/p hysterectomy and RT, radiation
colitis s/p colectomy and ileostomy, CAD, DM, parotid mass, RACHEL, depression, neuropathy, recurrent SBO came form facility with vomiting and nausea, CT showed pSBO. No hematemesis as per ED and admission note. Patient currently does not use PEG for
food
A/P:
#pSBO
seems to be resolving
advance diet as per general SX
SBFT on 01/13/25 showed no obstruction, however patient developed vomiting after contrast injection to PEG
COncern for possible pain and nausea 2/2 significant adhesions
Lipase WNL
#Reported hematemesis
Serial H&H
PPI IV BID
GI consult: without overt bleeding - can cont ASA, signed off as Hgb stable
Avoid anticoagulation
#Mild leukocytosis
resolved off Abx
no fever, no symptoms of infection
#Chronic mild thrombocytopenia
follow CBC
since at least 2011
BM biopsy in 2013 unremarkable
#CKD stage 3
#RA
#COPD not in exacerbation
#Hypothyroidism
#Hx of CVA
#PAD s/p femoral to femoral crossover graft
#HLD
#Neuropathy
#Anxiety d/o
cont home meds
except of above
#hypokalemia
replete
#essential HTN
start nifedipine
DVT ppx SCDs
DNR/DNI
I have spent at least 39min reviewing chart, test results, communication with consultants and providing direct patient care
Anticipated Discharge: Within 24 hours
Subjective/Interval History
-
Date of Service: January 15, 2025
Objective Data
-
Labs:
Laboratory Results
01/15/25
07:07
WBC 5.0
Hgb 10.1 L
Hct 30.4 L
Plt Count 100 L
Sodium 145
Potassium 3.3 L
Chloride 111 H
Carbon Dioxide 23
BUN 21 H
Creatinine 1.6 H
Glucose 102 H
Calcium 9.8
Total Bilirubin 0.4
AST 13 L
ALT < 10
Alkaline Phosphatase 84
Vital Signs:
Vital Signs
Temp Pulse Resp BP Pulse Ox
97.7 F 57 18 175/82 98
01/15/25 08:30 01/15/25 08:30 01/15/25 08:30 01/15/25 08:30 01/15/25 08:30
I&O
01/14/25 01/15/25 01/16/25
06:59 06:59 06:59
Intake Total 1830 / 1830
Output Total 800 / 800 950 / 950
Balance -800 / -800 880 / 880
Review of Systems
-
History Source: Patient
All other systems: Reviewed and negative
Abdomen/GI: Reports Abdominal Pain
Physical Exam
-
General: No Apparent Distress
HEENT: Normocephalic
Cardiac: Regular Rhythm
GI: Soft, Nondistended, Tender, Peg Tube and Ostomy
Musculoskeletal: No Clubbing, No Cyanosis and No Edema
Neuro: Awake, Alert, Oriented, AO x 3, Slurred Speech (chronic) and Other
Psych: Calm
[2025-01-15] MEDS: MAGNESIUM SULFATE 102 GRAMS IV (09:58)
[2025-01-15] MEDS: PLAVIX 75 MG PO (10:11)
--- NOTE | 2025-01-15 10:11 | CM ---
Reviewed the chart notes. Patient's diet upgraded to full liquid. Per note, G-tube to be clamped. Potential discharge back to [facility] tomorrow. CM continues to be available to patient/family and is monitoring medical plan for needs at
discharge.
Plan: Discharge back to [facility] when medically stable. No precert required.
[2025-01-15 11:20] VITALS: BP 152/78
[2025-01-15] MEDS: D5LR 1000 IV ×2 (11:31→23:26)
[2025-01-15 15:05] VITALS: BP 138/105
[2025-01-15] MEDS: NSS (PRESERVATIVE FREE) 8 ML IV (21:55)
[2025-01-15] MEDS: PEPCID 20 MG IV (21:55)
[2025-01-15 23:30] VITALS: BP 153/85
[2025-01-16] MEDS: DILAUDID 0.5 MG IV ×3 (02:20→10:36)
[2025-01-16 03:07] VITALS: BP 152/84
[2025-01-16 07:45] VITALS: BP 139/76
[2025-01-16] MEDS: LOW STRENGTH ASPIRIN 81 MG PO (09:01)
[2025-01-16] MEDS: NEURONTIN 300 MG PO ×3 (09:01→22:45)
[2025-01-16] MEDS: PROCARDIA XL (EXTENDED RELEASE) 30 MG PO (09:02)
[2025-01-16] MEDS: PLAVIX 75 MG PO (09:02)
[2025-01-16] MEDS: BUSPAR 10 MG PO ×2 (09:02→20:43)
[2025-01-16] MEDS: EFFEXOR XR 225 MG PO (09:02)
[2025-01-16] MEDS: NSS (PRESERVATIVE FREE) 10 ML IV ×2 (09:03→20:44)
[2025-01-16] MEDS: PROTONIX IV 40 MG IV ×2 (09:03→20:44)
[2025-01-16] MEDS: OMNIPAQUE 50 ML PO (09:47)
--- NOTE | 2025-01-16 10:44 | W.PN.HOSP.TC ---
Today's Communication/Plan
-
repeat CT abd if no new acute pathology - can d/c as patient tolerating diet. plan for puree later if ok with genSx
Assessment / Plan
Assessment / Plan
59yo F with PMHX of chronic abdominal pain 2/2 adhesions and multiple episodes of ileus and SBO, CVA with PAD s/p iliac graft, L hemiparesis, PEG tube, HTN, CKD stage 3, RA, COPD, hypothyroidism, Hx of cervical CA s/p hysterectomy and RT, radiation
colitis s/p colectomy and ileostomy, CAD, DM, parotid mass, RACHEL, depression, neuropathy, recurrent SBO came form facility with vomiting and nausea, CT showed pSBO. No hematemesis as per ED and admission note. Patient currently does not use PEG for
food
A/P:
#pSBO
seems to be resolving
advance diet as per general SX
SBFT on 01/13/25 showed no obstruction, however patient developed vomiting after contrast injection to PEG
COncern for possible pain and nausea 2/2 significant adhesions
Lipase WNL
#Reported hematemesis
Serial H&H
PPI IV BID
GI consult: without overt bleeding - can cont ASA, signed off as Hgb stable
Avoid anticoagulation
#Mild leukocytosis
resolved off Abx
no fever, no symptoms of infection
#Chronic mild thrombocytopenia
follow CBC
since at least 2011
BM biopsy in 2013 unremarkable
#CKD stage 3
#RA
#COPD not in exacerbation
#Hypothyroidism
#Hx of CVA
#PAD s/p femoral to femoral crossover graft
#HLD
#Neuropathy
#Anxiety d/o
cont home meds
except of above
#hypokalemia
replete
#essential HTN
start nifedipine
DVT ppx SCDs
DNR/DNI
I have spent at least 39min reviewing chart, test results, communication with consultants and providing direct patient care
Anticipated Discharge: Within 24 hours
Subjective/Interval History
-
Date of Service: January 16, 2025
Objective Data
-
Vital Signs:
Vital Signs
Temp Pulse Resp BP Pulse Ox
97.5 F 52 16 139/76 100
01/16/25 07:45 01/16/25 07:45 01/16/25 07:45 01/16/25 09:02 01/16/25 07:45
I&O
01/15/25 01/16/25 01/17/25
06:59 06:59 06:59
Intake Total 1830 / 1830 1320 / 1320
Output Total 950 / 950 320 / 320
Balance 880 / 880 1000 / 1000
Review of Systems
-
History Source: Patient
All other systems: Reviewed and negative
Physical Exam
-
General: No Apparent Distress
Respiratory: Clear to Auscultation
Cardiac: Regular Rhythm
GI: Soft, Nondistended, Tender, Peg Tube and Ostomy
Neuro: Awake, Alert, Oriented and AO x 3
Psych: Calm
[2025-01-16 11:15] VITALS: BP 145/73
--- NOTE | 2025-01-16 11:28 | W.PN.GS2 ---
Addendum entered and electronically signed by Carson Dumont MD 01/16/25 11:55:
I saw and examined the patient.
The [employer]'s note was reviewed and I agree with the note.
Comment: No nausea or emesis with g-tube clamped. Not taking much PO. Chronic pain remains, somewhat controlled. Belly soft, mild distention, mild ttp about the midline mostly, stoma PPV with liquid stool in bag. Cont fulls with supplements.
Original Note:
Today's Communication / Plan
-
Full liquids
Assessment / Plan
-
Assessment: 59 yo F with multiple abdominal surgeries, currently with end ileostomy and PEG tube who presents with a partial small bowel obstruction and adhesive pain
follow up SBFT negative for residual obstruction or significant pSBO
ostomy functioning well
Gtube clamped
Plan: Continue with G-tube clamped
Continue FLD, poor PO intake thus far
Analgesics prn
Follow stoma outputs
Subjective Data
-
Date of Service: January 16, 2025
Patient seen and examined at bedside with Dr. Dumont. Denies n/v. Still with some left sided abd pain, sometimes it is more sharp. Did not eat much yesterday
Objective Data
-
Intake and Output
01/15/25 01/16/25 01/17/25
06:59 06:59 06:59
Intake Total 1830 / 1830 1320 / 1320
Output Total 950 / 950 320 / 320
Balance 880 / 880 1000 / 1000
Intake:
Oral fluids 720 / 720 120 / 120
IV fluids (Total) 1020 / 1020 850 / 850
IV piggybacks 350 / 350
Amount instilled into GI Tube ( 90 / 90
Total)
Gastrostomy 90 / 90
Output:
Liquid stool amount 100 / 100 320 / 320
Colostomy 100 / 100 320 / 320
Gastrointestinal tube output ( 850 / 850
Total)
Gastrostomy 850 / 850
Other:
How many times incontinent 1
MODERATE amount urine
How many times incontinent 3 3
SATURATED amount urine
Vital Signs
Temp Pulse Resp BP Pulse Ox
97.5 F 52 16 139/76 100
01/16/25 07:45 01/16/25 07:45 01/16/25 07:45 01/16/25 09:02 01/16/25 07:45
Lab Results
01/15/25 07:07
01/15/25 07:07
Calcium 9.8 mg/dl (8.4-10.2) 01/15/25 07:07
Magnesium 1.7 mg/dl (1.6-2.3) 01/15/25 07:07
Total Bilirubin 0.4 mg/dl (0.2-1.3) 01/15/25 07:07
AST 13 U/L (14-36) L 01/15/25 07:07
ALT < 10 U/L (0-35) 01/15/25 07:07
Alkaline Phosphatase 84 U/L (38-126) 01/15/25 07:07
Total Protein 7.4 g/dl (6.3-8.2) 01/15/25 07:07
Albumin 3.8 g/dl (3.5-5.0) 01/15/25 07:07
Physical Exam
-
NAD AAOx3
ABD: soft, ND, localizing tenderness to mid abd but no rebound/guarding
left sided ileostomy -> + stool
Gtube clamped
[2025-01-16 15:30] VITALS: BP 170/86
--- NOTE | 2025-01-16 16:10 | CM ---
Reviewed the chart notes and spoke with the patient at the bedside. IMM reviewed. CM continues to be available to patient/family and is monitoring medical plan for needs at discharge.
Plan: Discharge back to [facility] when medically stable.
Call report to: [phone]
Fax report to: [phone] or [phone]
[2025-01-16 16:36] VITALS: BP 154/88
[2025-01-16] MEDS: ROXICODONE ORAL SOLUTION 5 MG PO (17:13)
[2025-01-16] MEDS: PEPCID 20 MG IV (22:44)
[2025-01-16] MEDS: NSS (PRESERVATIVE FREE) 8 ML IV (22:45)
[2025-01-16 23:15] VITALS: BP 167/89
[2025-01-17] MEDS: DILAUDID 0.5 MG IV (02:27)
[2025-01-17 07:00] VITALS: BP 159/80
[2025-01-17] MEDS: SYNTHROID 75 MCG PO (08:24)
[2025-01-17] MEDS: LOW STRENGTH ASPIRIN 81 MG PO (08:25)
[2025-01-17] MEDS: PROTONIX IV 40 MG IV (08:25)
[2025-01-17] MEDS: BUSPAR 10 MG PO (08:25)
[2025-01-17] MEDS: NSS (PRESERVATIVE FREE) 10 ML IV (08:25)
[2025-01-17] MEDS: EFFEXOR XR 225 MG PO (08:25)
[2025-01-17] MEDS: NEURONTIN 300 MG PO (08:25)
[2025-01-17] MEDS: ZESTRIL 5 MG PO (08:25)
[2025-01-17] MEDS: ROXICODONE ORAL SOLUTION 5 MG PO ×2 (08:25→13:29)
[2025-01-17] MEDS: PROCARDIA XL (EXTENDED RELEASE) 30 MG PO (08:26)
[2025-01-17] MEDS: PLAVIX 75 MG PO (08:26)
--- NOTE | 2025-01-17 09:01 | W.PN.GS2 ---
Today's Communication / Plan
-
continue current diet
Assessment / Plan
-
Assessment: 59 yo F with multiple abdominal surgeries, currently with end ileostomy and PEG tube who presents with a partial small bowel obstruction and adhesive pain
follow up SBFT negative for residual obstruction or significant pSBO
ostomy functioning well, tolerating diet
Gtube clamped
Plan: Continue with G-tube clamped
Continue soft diet
Analgesics PO prn
No plans for surgical intervention
Subjective Data
-
Date of Service: January 17, 2025
Patient seen and examined at bedside. Denies n/v. Passing stool/flatus from stoma. Residual abdominal pain.
Objective Data
-
Intake and Output
01/16/25 01/17/25 01/18/25
06:59 06:59 06:59
Intake Total 1320 / 1320 2027
Output Total 320 / 320 730 / 730
Balance 1000 / 1000 1298 / 1298
Intake:
Oral fluids 120 / 120 2027
IV fluids (Total) 850 / 850
IV piggybacks 350 / 350
Output:
Liquid stool amount 320 / 320 730 / 730
Colostomy 320 / 320 730 / 730
Other:
Number of approximated MODERATE 2
amounts of urine
How many times incontinent 3 1
SATURATED amount urine
Vital Signs
Temp Pulse Resp BP Pulse Ox
97.9 F 62 18 159/80 98
01/17/25 07:00 01/17/25 07:00 01/17/25 07:00 01/17/25 07:00 01/17/25 07:00
Lab Results
01/15/25 07:07
01/15/25 07:07
Calcium 9.8 mg/dl (8.4-10.2) 01/15/25 07:07
Magnesium 1.7 mg/dl (1.6-2.3) 01/15/25 07:07
Total Bilirubin 0.4 mg/dl (0.2-1.3) 01/15/25 07:07
AST 13 U/L (14-36) L 01/15/25 07:07
ALT < 10 U/L (0-35) 01/15/25 07:07
Alkaline Phosphatase 84 U/L (38-126) 01/15/25 07:07
Total Protein 7.4 g/dl (6.3-8.2) 01/15/25 07:07
Albumin 3.8 g/dl (3.5-5.0) 01/15/25 07:07
Physical Exam
-
NAD AAOx3
ABD: soft, ND, localizing tenderness to mid abd but no rebound/guarding
left sided ileostomy -> + stool
Gtube clamped
--- NOTE | 2025-01-17 09:22 | W.PN.HOSP.TC ---
Today's Communication/Plan
-
discharged
Assessment / Plan
Assessment / Plan
59yo F with PMHX of chronic abdominal pain 2/2 adhesions and multiple episodes of ileus and SBO, CVA, with PAD s/p iliac graft, R hemiparesis and dysphasia, PEG tube, HTN, CKD stage 3, RA, COPD, hypothyroidism, Hx of cervical CA s/p hysterectomy and
RT, radiation colitis s/p colectomy and ileostomy, CAD, DM, parotid mass, RACHEL, depression, neuropathy, recurrent SBO came form facility with vomiting and nausea, CT showed pSBO. No hematemesis as per ED and admission note. Patient currently does not
use PEG for food. Started to tolerate soft diet with opioids. Repeated CT without acute abnormalitis and SBO resolved. As no surgical plans- medically stable for d/c back to SNF on oxycodone and soft diet recommendations
A/P:
#pSBO with chronic abdominal pain 2/2 adhesions
seems to be resolving
advance diet as per general SX
SBFT on 01/13/25 showed no obstruction, however patient developed vomiting after contrast injection to PEG
COncern for possible pain and nausea 2/2 significant adhesions
Lipase WNL
#Reported hematemesis
Serial H&H
PPI IV BID
GI consult: without overt bleeding - can cont ASA, signed off as Hgb stable
Avoid anticoagulation
#Mild leukocytosis
resolved off Abx
no fever, no symptoms of infection
#Chronic mild thrombocytopenia
follow CBC
since at least 2011
BM biopsy in 2013 unremarkable
#CKD stage 3
#RA
#COPD not in exacerbation
#Hypothyroidism
#Hx of CVA
#PAD s/p femoral to femoral crossover graft
#HLD
#Neuropathy
#Anxiety d/o
cont home meds
except of above
#hypokalemia
replete
#essential HTN
start nifedipine
DVT ppx SCDs
DNR/DNI
I have spent at least 39min reviewing chart, test results, communication with consultants and providing direct patient care
Anticipated Discharge: Today
Subjective/Interval History
-
Date of Service: January 17, 2025
Objective Data
-
Vital Signs:
Vital Signs
Temp Pulse Resp BP Pulse Ox
97.9 F 62 18 159/80 98
01/17/25 07:00 01/17/25 07:00 01/17/25 07:00 01/17/25 07:00 01/17/25 07:00
I&O
01/16/25 01/17/25 01/18/25
06:59 06:59 06:59
Intake Total 1320 / 1320 2027
Output Total 320 / 320 730 / 730
Balance 1000 / 1000 1298 / 1298
Review of Systems
-
History Source: Patient
All other systems: Reviewed and negative
Abdomen/GI: Reports Abdominal Pain
Physical Exam
-
General: Comfortable
HEENT: Normocephalic
Cardiac: Regular Rhythm
GI: Soft, Nontender, Nondistended, Peg Tube and Ostomy
Musculoskeletal: No Clubbing, No Cyanosis and No Edema
Neuro: Awake, Alert, Oriented, AO x 3 and Slurred Speech (chronic)
Psych: Calm
--- NOTE | 2025-01-17 09:31 | W.DCSUMMARY ---
Discharge Summary
Discharge Data
Date of Admission: 01/12/25
Date of Discharge: 01/17/25
-
Pending Results: No
Hospital Course
59yo F with PMHX of chronic abdominal pain 2/2 adhesions and multiple episodes of ileus and SBO, CVA, with PAD s/p iliac graft, R hemiparesis and dysphasia, PEG tube, HTN, CKD stage 3, RA, COPD, hypothyroidism, Hx of cervical CA s/p hysterectomy and
RT, radiation colitis s/p colectomy and ileostomy, CAD, DM, parotid mass, RACHEL, depression, neuropathy, recurrent SBO came form facility with vomiting and nausea, CT showed pSBO. No hematemesis as per ED and admission note. Patient currently does not
use PEG for food. Started to tolerate soft diet with opioids. Repeated CT without acute abnormalitis and SBO resolved. As no surgical plans- medically stable for d/c back to SNF on oxycodone and soft diet recommendations
I have spent at least 39min reviewing chart, test results, communication with consultants and providing direct patient care
Patient was managed for:
#pSBO with chronic abdominal pain 2/2 adhesions
#Reported hematemesis
#Mild leukocytosis
#Chronic mild thrombocytopenia
#RA
#COPD not in exacerbation
#Hypothyroidism
#Hx of CVA
#PAD s/p femoral to femoral crossover graft
#HLD
#Neuropathy
#Anxiety d/o
#Mildly atrophic L kidney with CKD stage 3b
#hypokalemia
#essential HTN
Discharge Plan
-
Patient Disposition: Correction/SNF
Discharge Diagnosis/Procedures: partial SBO
Additional Diets: soft diet with TID Ensure supplements
Referrals:
UNKNOWN - PT DOES,NOT KNOW [Family Provider] -
Prescriptions:
New
oxycodone 5 mg tablet
5 mg PO Q6H PRN (Reason: Pain) Qty: 7 0RF
nifedipine 30 mg Tablet Extended Release
30 mg PO DAILY Qty: 30 0RF
lisinopril 5 mg Tablet
5 mg PO DAILY Qty: 30 0RF
Continued
clopidogrel [Plavix] 75 mg Tablet
75 mg PO DAILY
Patient Comments:
order to hold
atorvastatin 40 mg tablet
40 mg PO HS
buspirone 5 mg Tablet
10 mg PO BID
acetaminophen 325 mg Tablet
650 mg PO Q4HPRN PRN (Reason: mild pain/temp>100F)
sodium bicarbonate 650 mg Tablet
650 mg PO Q8H
Fleet Enema 19-7 gram/118 mL Enema
118 ml SD DAILYPRN PRN (Reason: if dulcolax is ineffective after 24hrs)
Rx Instructions:
prn
gabapentin 300 mg capsule
300 mg PO TID
loratadine 10 mg Tablet
10 mg PO DAILY
cholecalciferol (vitamin D3) [Vitamin D3] 25 mcg (1,000 unit) Tablet
25 mcg PO DAILY
melatonin 5 mg Tablet
5 mg PO HS
loperamide 2 mg Tablet
2 mg PO Q6HPRN PRN (Reason: diarrhea)
levothyroxine [Synthroid] 75 mcg Tablet
75 mcg PO DAILY
bisacodyl [Dulcolax (bisacodyl)] 10 mg Suppository
10 mg SD DAILYPRN PRN (Reason: if no bm aftr mom)
Rx Instructions:
prn
aspirin 81 mg Tablet,Chewable
81 mg PO DAILY
diclofenac sodium 1 % Gel
2 g TOPICAL TID
venlafaxine 225 mg Tablet Extended Release 24hr
225 mg PO DAILY
famotidine 20 mg tablet
20 mg PO HS
pantoprazole [address] for susp in packet
40 mg PO DAILY
Discontinued
guaifenesin 600 mg Tablet Extended Release 12hr
600 mg PO BID
amlodipine [Norvasc] 5 mg Tablet
5 mg PO DAILY
magnesium hydroxide [Milk of Magnesia] 400 mg/5 mL Suspension
2,400 mg PO [id number] PRN (Reason: constipation)
lidocaine 5 % Adhesive Patch,Medicated
1 patch TOPICAL DAILY
cefdinir 300 mg capsule
300 mg PO BID Qty: 4 0RF
hydrocodone-acetaminophen 5-325 mg tablet
1 tab PO Q4HPRN PRN (Reason: moderate to severe pain) Qty: 10 0RF
Rx Instructions:
prn
Discharge Orders:
Discharge Patient (As Directed); Ordered 01/17/25
Ordered By: Michele Haley
Discharge Date and Time
Print Language: ROMANSH
--- NOTE | 2025-01-17 09:53 | CM ---
Addendum entered by Cristina Francisco 01/17/25 11:03:
CM spoke with patient spouse and he asked for phone call from physician regarding medical outcomes. CM reviewed IMM and he provided his email [email or web address]
Addendum entered by Cristina Francisco 01/17/25 10:56:
Patient able to return to SNF today. Please call [phone]/fax [phone]. CM will complete transfer forms and review with patient IMM/family.
Patient will need ambulance for transportation back to SNF
Original Note:
Referral sent to [facility] and call placed to admissions liaison. Await confirmation of ability to return.
[2025-01-17] MEDS: ZOFRAN ODT (ORALLY DISINTEGRATING) 4 MG PO (12:56)
[2025-01-17 13:48] VITALS: BP 132/73
== END 2025-01-17 14:53 | DRG 389 ==
LOC: 2 SOUTH 05:22
PROVIDERS: ADMITTING PHYSICIAN Internal Medicine; ATTENDING PHYSICIAN Internal Medicine; CONSULT PHYSICIAN Internal Medicine Gastroenterology; EMERGENCY PHYSICIAN Student in an Organized Health Care Education/Training Program; OTHER PHYSICIAN Surgery
DX: K56.51 Intestinal adhesions [bands], with partial obstruction (principal); F11.20 Opioid dependence, uncomplicated; I69.351 Hemiplegia and hemiparesis following cerebral infarction affecting right dominant side; K92.0 Hematemesis; Z66 Do not resuscitate; I25.10 Atherosclerotic heart disease of native coronary artery without angina pectoris; N18.32 Chronic kidney disease, stage 3b; N26.1 Atrophy of kidney (terminal); G89.4 Chronic pain syndrome; G47.33 Obstructive sleep apnea (adult) (pediatric); M06.9 Rheumatoid arthritis, unspecified; F17.210 Nicotine dependence, cigarettes, uncomplicated; J44.9 Chronic obstructive pulmonary disease, unspecified; E03.9 Hypothyroidism, unspecified; F41.9 Anxiety disorder, unspecified; E78.00 Pure hypercholesterolemia, unspecified; E66.9 Obesity, unspecified; I69.320 Aphasia following cerebral infarction; I25.2 Old myocardial infarction; Z68.33 Body mass index [BMI] 33.0-33.9, adult; E11.42 Type 2 diabetes mellitus with diabetic polyneuropathy; E87.6 Hypokalemia; I10 Essential (primary) hypertension; D69.6 Thrombocytopenia, unspecified; Z88.0 Allergy status to penicillin; Z88.2 Allergy status to sulfonamides; Z79.02 Long term (current) use of antithrombotics/antiplatelets; Z79.82 Long term (current) use of aspirin; Z79.890 Hormone replacement therapy; Z79.899 Other long term (current) drug therapy; Z93.2 Ileostomy status; Z93.1 Gastrostomy status; Z95.5 Presence of coronary angioplasty implant and graft; Z92.3 Personal history of irradiation; Z91.199 Patient's noncompliance with other medical treatment and regimen due to unspecified reason; Z91.040 Latex allergy status; Z90.710 Acquired absence of both cervix and uterus; Z90.49 Acquired absence of other specified parts of digestive tract; Z85.41 Personal history of malignant neoplasm of cervix uteri; Z95.818 Presence of other cardiac implants and grafts; Z95.820 Peripheral vascular angioplasty status with implants and grafts
CPT/HCPCS: 71045; 74176; 74177; 74250; 80053; 83690; 83735; 84443; 84484; 85014; 85018; 85025; 87070; 93005; 99285; Q9967

== ENCOUNTER 2025-01-26 07:38 | Inpatient (IN) | payer MEDICARE, OTHER, SELFPAY ==
[2025-01-20 22:10] VITALS: BP 151/84
[2025-01-20 22:13] VITALS: BP 151/84
[2025-01-20 22:17] VITALS: BMI 33.2
[2025-01-20 22:56] LABS: % Basophils 0.3 % (0-2); % Eosinophils 5.1 % (0-6); % Immature Granulocytes 0.6 % (0-0.5); % Lymphocytes 14.6 % (20.5-51.1); % Monocytes 5.6 % (1.7-9.3); % Neutrophils 73.8 % (42.2-75.2); Absolute Eosinophils 0.5 10^3/uL (0-0.7); Absolute Immature Granulocytes 0.1 10^3/uL (0-0.05); Absolute Lymphocytes 1.4 10^3/uL (1.2-3.4); Absolute Monocytes 0.5 10^3/uL (0.1-0.6); Absolute Neutrophils 7.1 10^3/uL (1.4-6.5); Hematocrit 33.4 % (37.0-47.0); Hemoglobin 11.1 g/dL (12.0-16.0); Mean Corp Hgb Conc. 33.2 g/dL (33.0-37.0); Mean Corpuscular Hgb 30.8 pg (27.0-31.0); Mean Corpuscular Volume 92.8 fL (81.0-99.0); Mean Platelet Volume 8.7 fL (7.4-10.4); Nucleated Red Blood Cells % 0 %; Platelet Count 110 10^3/uL (130-400); Red Cell Dist. Width 13.9 % (11.5-14.5); White Blood Cell Count 9.7 10^3/uL (4.8-10.8)
[2025-01-20 23:00] VITALS: BP 147/72
[2025-01-20 23:11] LABS: ALT (SGPT) 10 U/L (0-35); AST (SGOT) 15 U/L (14-36); Albumin 4.5 g/dl (3.5-5.0); Alkaline Phosphatase 82 U/L (38-126); Blood Urea Nitrogen 31 mg/dl (7-17); Calcium 9.4 mg/dl (8.4-10.2); Carbon Dioxide 20 mmol/L (22-30); Chloride 108 mmol/L (98-107); Estimated Creatinine Clearance 35 ml/min; Glucose 98 mg/dl (70-99); Potassium 3.9 mmol/L (3.5-5.1); Sodium 141 mmol/L (135-145); Total Bilirubin 0.4 mg/dl (0.2-1.3); Total Protein 8.2 g/dl (6.3-8.2); eGFR 26.64
--- NOTE | 2025-01-20 23:13 | ED.GENMED ---
History of Present Illness
General
Chief Complaint: Abdominal Pain
Source: patient and records
Exam Limitations: none
Time Seen by Provider: 01/20/25 23:06
Nursing documentation reviewed up to this point in time: agreed with
History of Present Illness
History of Present Illness:
59-year-old female with history of HTN, CKD 3B, anxiety, neuropathy, HLD, PAD, CVA, hypothyroid, COPD, RA, multiple abdominal surgeries, end ileostomy and PEG tube from [facility] for right side abdominal pain. She was admitted 01/12 to 01/17 for
small bowel obstruction with chronic abdominal pain secondary to adhesions, ileostomy presents for right side abdominal pain that she states started this morning around 11 a.m. and has gradually worsened. She ate chicken salad sandwich at 12:30,
has not eaten since. She states after her discharge 3 days ago, her pain was improved until this morning. She has not vomited. Her ileostomy tube is draining brown liquid.
Past History
Past History
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
Renal calculus, Parotid mass, LVH, GI bleeding, Anemia, PTSD); Negative Asthma or Hypercholesterolemia
ED Past Surgical History: Appendectomy, Bowel resection, Cardiac (Cardiac stent), Gynecological (Cervical Cancer with radiaion and Chemo, Hysterectomy), Orthopedic (Left ankle, left knee surgery X 2, Left wrist surgery, Right knee surgery, ),
Tonsilectomy (adnoids) and Other (Colostomy changed to Ileostomy, Ear tubes, Right parotidectomy, Left great toe and second Toe amputation)
Social History
Tobacco: Smoker (1ppd)
Alcohol: None
Drug: None
Personal:
Living: fdc
Employment: Not employed
Family History
Family History: Early CAD (in patient's father)
Review of Systems
Review of Systems
Allergies reviewed?: Yes
All Other Systems: ROS reviewed and negative except as documented in HPI and ROS
Constitutional: Denies fever
Respiratory: Denies trouble breathing
Cardiac: Denies chest pain
ABD/GI: Reports abdominal pain and other (ileostomy bag draining liquid stool); Denies nausea or vomiting
: Denies dysuria
Musculoskeletal: Denies edema
Skin: Reports no symptoms
Neurological: Denies headache
Phy Exam
Physical Exam
Physical Exam:
GENERAL: No acute distress. A&Ox3.
CONSTITUTIONAL: Afebrile.
EYES: clear, conjunctivae normal
ENMT: moist mucus membranes, Pharynx nl
RESPIRATORY: Regular respirations, nonlabored, lungs clear.
CARDIOVASCULAR: Regular rate and rhythm, no murmurs, no rubs.
GI: Obese, soft, tender right side abdomen, normal BS
MUSCULOSKELETAL: Moves with ease. Well perfused. No edema.
SKIN: Warm, dry, pink
PSYCH: Normal mood and affect. Well kept, interactive and appropriate
NEUROLOGIC: Awake, alert and oriented. No focal neurological deficits
Course
Orders/Labs/Results
Orders:
Orders
01/20/25 22:45
Complete Blood Count/With Diff Urgent
Comprehensive Metabolic Panel Urgent
Lactic Acid Urgent
Lipase Urgent
01/20/25 23:25
CT Abd/pel Without Iv Or Oral Urgent
Comment:
Reason For Exam: R abd pain
01/20/25 23:27
HYDROmorphone [Dilaudid] 0.5 mg IV NOW STA
01/21/25 00:23
0.9% Sodium Chloride 500 ml [Nss] 500 ml IV BOLUS
01/21/25 01:13
Urinalysis Reflex To Culture Urgent
Abnormal Lab Results
01/20/25
22:45
RBC 3.60 L 10^6/uL
(4.20-5.40)
Hgb 11.1 L g/dL
(12.0-16.0)
Hct 33.4 L %
(37.0-47.0)
Plt Count 110 L 10^3/uL
(130-400)
Abs Immat Gran (auto) 0.1 H 10^3/uL
(0-0.05)
Absolute Neuts (auto) 7.1 H 10^3/uL
(1.4-6.5)
Immature Gran % 0.6 H %
(0-0.5)
Lymphocytes % 14.6 L %
(20.5-51.1)
Chloride 108 H mmol/L
(98-107)
Carbon Dioxide 20 L mmol/L
(22-30)
BUN 31 H mg/dl
(7-17)
Creatinine 2.1 H mg/dL
(0.6-1.0)
Lipase 571 H U/L
(23-300)
01/20/25 22:45
01/20/25 22:45
Vital Signs
Initial and Last Documented VS:
Initial Vital Signs
Temp Pulse Resp BP Pulse Ox
97.9 F 63 18 151/84 99
01/20/25 22:10 01/20/25 22:10 01/20/25 22:10 01/20/25 22:10 01/20/25 22:10
Last Documented Vital Signs
Temp Pulse Resp BP Pulse Ox
97.9 F 66 11 129/68 95
01/20/25 22:10 01/21/25 00:15 01/21/25 00:15 01/21/25 00:15 01/20/25 23:30
Lemon Picker consulted with Physician
Lemon Picker consulted with physician?: Yes
Name of Physician Consulted: Karen
MDM/Problems Addressed
Differential Diagnosis Includes:
Bowel obstruction, cholecystitis
MDM/Problems Addressed:
59-year-old female with history of HTN, CKD 3B, anxiety, neuropathy, HLD, PAD, CVA, hypothyroid, COPD, RA, multiple abdominal surgeries, end ileostomy and PEG tube from [facility] for right side abdominal pain. She was admitted 01/12 to 01/17 for
small bowel obstruction with chronic abdominal pain secondary to adhesions, ileostomy, PEG tub, presents for right side abdominal pain that she states started this morning around 11 a.m. and has gradually worsened. She ate chicken salad sandwich at
12:30, has not eaten since. She states after her discharge 3 days ago, her pain was improved until this morning. She has not vomited. Her ileostomy tube is draining brown liquid.
Afebrile, pain 05/24
11:00 p.m.
CBC with no clinically significant abnormality
CMP:Consistent with her CKD baseline
Lipase mildly elevated 571 IVFs infusing
Case discussed with Dr. Jones
01/21/25 1:00 a.m.
Vision radiology report CT abdomen pelvis without IV contrast read: No significant change from prior stud. No intestinal obstruction, G-tube intact, no obstructing ureteral stone, no evidence of nephrolithiasis at this time, mild bladder wall
thickening similar to prior study but nonspecific could correlate with urinalysis
Pt is not comfortable going back to [place] as this abdominal pain is 'different' Has some relief after Dilaudid
Concern for pancreatitis as she has had it in the past
Plan: admit, pain management, elevated Lipase.
Hospitalist notified of admission.
UA pending
*Critical Care Note
Total Time (30-74mins, 75-104mins- exclusive of procedures): Not Applicable
ED Attending Note
-
Portions of this chart may have been created with voice recognition software.� Occasional wrong word or��sound alike� substitutions may have occurred due to the inherent limitations of voice recognition software.
Discharge Plan
Departure
Patient Disposition: Admit
Date of Disposition: 01/21/25
Time of Disposition: 01:03
Admit to: Med/Surg
Presentation/result/management discussed w/ accepting MD/DO: Hospitalist
Condition: Fair
Discharge Problem:
Abdominal pain, Elevated lipase
Prescriptions:
No Action
clopidogrel [Plavix] 75 mg Tablet
75 mg PO DAILY
atorvastatin 40 mg tablet
40 mg PO HS
acetaminophen 325 mg Tablet
650 mg PO Q4HPRN PRN (Reason: mild pain/temp>100F)
sodium bicarbonate 650 mg Tablet
650 mg PO Q8H
Fleet Enema 19-7 gram/118 mL Enema
118 ml HI DAILYPRN PRN (Reason: if dulcolax is ineffective after 24hrs)
Rx Instructions:
prn
gabapentin 300 mg capsule
300 mg PO TID
loratadine 10 mg Tablet
10 mg PO DAILY
cholecalciferol (vitamin D3) [Vitamin D3] 25 mcg (1,000 unit) Tablet
25 mcg PO DAILY
melatonin 5 mg Tablet
5 mg PO HS
levothyroxine [Synthroid] 75 mcg Tablet
75 mcg PO DAILY
bisacodyl [Dulcolax (bisacodyl)] 10 mg Suppository
10 mg HI DAILYPRN PRN (Reason: if no bm aftr mom)
Rx Instructions:
prn
aspirin 81 mg Tablet,Chewable
81 mg PO DAILY
diclofenac sodium 1 % Gel
2 g TOPICAL TID
venlafaxine 225 mg Tablet Extended Release 24hr
225 mg PO DAILY
famotidine 20 mg tablet
20 mg PO HS
pantoprazole [address] for susp in packet
40 mg PO DAILY
nifedipine 30 mg Tablet Extended Release
30 mg PO DAILY Qty: 30 0RF
lisinopril 5 mg Tablet
5 mg PO DAILY Qty: 30 0RF
levothyroxine [Synthroid] 100 mcg Tablet
100 mcg PO DAILY
lorazepam [Ativan] 0.5 mg Tablet
0.25 mg PO BID
magnesium hydroxide [Milk of Magnesia] 400 mg/5 mL Suspension
30 ml PO [id number] PRN (Reason: no bm x3 days)
buspirone 10 mg Tablet
10 mg PO BID
clotrimazole 1 % Cream
1 applic TOPICAL TID
Patient Comments:
01/20/25: to take from 01/05/25-01/22/25
oxycodone 5 mg tablet
5 mg PO Q6HPRN PRN (Reason: severe pain)
Referrals:
Michael Vargas MD [Family Provider] -
Interventions
Interventions:
*Risk Screen - Suicide Last Done: 01/20/25 22:19
*General Assessment Last Done: 01/20/25 22:19
*Neglect/Abuse Screening Last Done: 01/20/25 22:19
*ED- Fall Risk Assessment Last Done: 01/20/25 22:19
*ED COVID-19 Vaccine History Last Done: 01/20/25 22:19
XM-Jwhtxd-Irjubotjbn Assessment Last Done: 01/20/25 22:19
Discharge Date and Time
Print Language: UGANDAN
[2025-01-20 23:14] LABS: Lipase 571 U/L (23-300)
[2025-01-20] MEDS: DILAUDID 0.5 MG IV (23:47)
[2025-01-21] VITALS (10 sets, daily range): BP systolic 107–155; BP diastolic 54–88
[2025-01-21] MEDS: NSS 500 IV (00:27)
[2025-01-21 01:45] LABS: Urine Albumin 2+ (Neg - Trace); Urine Bilirubin Negative (Negative); Urine Character Clear (Clear); Urine Color Yellow; Urine Glucose Negative (Negative); Urine Ketone Negative (Negative); Urine Leukocyte 3+ (Negative); Urine Nitrite Negative (Negative); Urine Occult Blood 2+ (Negative); Urine Urobilinogen Negative (Neg - 1+)
[2025-01-21 02:03] LABS: Urine Bacteria Moderate (Negative); Urine White Cell 26-30 /HPF (0-5); Urine Yeast Few (Negative)
[2025-01-21] MEDS: DILAUDID 0.5 MG IV ×3 (03:33→22:27)
[2025-01-21] MEDS: ROCEPHIN 2000 MG IV (03:34)
--- NOTE | 2025-01-21 03:56 | HPS.HSE ---
Addendum entered and electronically signed by El Yepez DO 01/21/25 04:08:
A/P:
Pyuria
- 26-30 WBC on UA. No dysuria / frequency / etc.
- Afebrile, non-toxic, etc
- Hold further abx for now pending culture result.
Original Note:
Family Physician
-
Family Physician: Michael Vargas
Chief Complaint
-
Abd Pain
History of Present Illness
Patient is a 59y F with PMH significant for R hemiparesis s/p prior CVA, ileostomy, CKD III, hypertension and hypothyroidism who presents to ED complaining of abdominal pain. Patient was recently admitted 01/12 - 01/17 for pSBO. She states that
she was feeling well at discharge until this AM when she developed stabbing pain in the RLQ area. Patient states that she ate lunch today with no difficulty but could not eat dinner due to decreased appetite from pain. She denies any N/V, fevers /
chills or urinary complaints.
Medical History
Past Medical History
Past Medical History: Reports Other
Additional Past Medical History:
ASCVD (PAD, CVA, CAD)
DM II
CKD 3B
Rheumatoid Arthritis
COPD
RACHEL
Peripheral neuropathy due to chemotherapy
Chronic pain syndrome/chronic opioid dependence
Radiation colitis
Cervical cancer -treated with radiation and chemotherapy
Nephrolithiasis
Chronic thrombocytopenia
Fibromyalgia
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
Parotid Mass
Hypothyroidism
Past Surgical History: Reports Other
Additional Past Surgical History:
Bowel resection and colostomy due to colon perforation
Colostomy Revision x 4 and ultimate Ileostomy (2021)
G-tube Placement
Hemiglossectomy & parotidectomy
Multiple Digital Amputations
Social History
Alcohol: None
Drug: None
Family History
Family History: Not pertinent
Allergies / Home Medications
Allergies reflects when Allergies were last updated in [facility].
Home Medications with original date entered in [facility]
Allergy/Medication List:
Allergies
Allergy/AdvReac Type Severity Reaction Status Date / Time
adhesive Allergy TAPE-rash Verified 01/20/25 22:16
and itching
infliximab [From Remicade] Allergy Anaphylaxis Verified 01/20/25 22:16
latex Allergy Rash, Verified 01/20/25 22:16
itching,
Hives
Penicillins Allergy Unknown, Verified 01/20/25 22:16
tolerated
amoxicillin
and
ampicillin
in the past
Sulfa (Sulfonamide Allergy Hives, rash Verified 01/20/25 22:16
Antibiotics)
Home Medications
clopidogrel 75 mg tablet (Plavix) 75 mg PO DAILY Heart Disease/Condition 06/25/23
acetaminophen 325 mg tablet 650 mg PO Q4HPRN PRN mild pain/temp>100F 01/22/24
atorvastatin 40 mg tablet 40 mg PO HS High Cholesterol 01/22/24
cholecalciferol (vitamin D3) 25 mcg (1,000 unit) tablet (Vitamin D3) 25 mcg PO DAILY Supplement 01/22/24
gabapentin 300 mg capsule 300 mg PO TID Neurological Condition 01/22/24
loratadine 10 mg tablet 10 mg PO DAILY Allergies 01/22/24
melatonin 5 mg tablet 5 mg PO HS Sleep 01/22/24
sodium bicarbonate 650 mg tablet 650 mg PO Q8H Electrolyte Repletion 01/22/24
sodium phosphates 19 gram-7 gram/118 mL enema (Fleet Enema) 118 ml RI DAILYPRN PRN if dulcolax is ineffective after 24hrs 01/22/24
aspirin 81 mg chewable tablet 81 mg PO DAILY Blood Clot Prevention/Tx 07/15/24
bisacodyl 10 mg rectal suppository (Dulcolax (bisacodyl)) 10 mg RI DAILYPRN PRN if no bm aftr mom 07/15/24
diclofenac sodium 1 % topical gel 2 g topical TID left shoulder 07/15/24
famotidine 20 mg tablet 20 mg PO HS Gastrointestinal Issue 07/15/24
levothyroxine 75 mcg tablet (Synthroid) 75 mcg PO DAILY Thyroid 07/15/24
pantoprazole 40 mg granules delayed-release for susp in packet 40 mg PO DAILY Gastrointestinal Issue 07/15/24
venlafaxine 225 mg tablet,extended release 24 hr 225 mg PO DAILY Depression 07/15/24
lisinopril 5 mg tablet 5 mg PO DAILY #30 tabs 01/17/25
nifedipine 30 mg tablet,extended release 30 mg PO DAILY #30 tabs 01/17/25
buspirone 10 mg tablet 10 mg PO BID 01/20/25
clotrimazole 1 % topical cream 1 applic topical TID left upper arm 01/20/25
levothyroxine 100 mcg tablet (Synthroid) 100 mcg PO DAILY 01/20/25
lorazepam 0.5 mg tablet (Ativan) 0.25 mg PO BID 01/20/25
magnesium hydroxide 400 mg/5 mL oral suspension (Milk of Magnesia) 30 ml PO [id number] PRN no bm x3 days 01/20/25
oxycodone 5 mg tablet 5 mg PO Q6HPRN PRN severe pain 01/20/25
Review of Systems
-
History Source: Patient
A 12 point ROS was completed and negative except as noted: Yes
Constitutional: Denies Fever or Chills
Respiratory: Denies Cough or Trouble Breathing
Cardiac: Denies Chest Pain or Palpitations
Abdomen/GI: Reports Abdominal Pain; Denies Nausea, Vomiting or Diarrhea
: Denies Dysuria, Frequency or Flank Pain
Musculoskeletal: Denies Joint Pain
Neurological: Denies Dizzy or Headache
Physical Exam
Vital Signs
Vital Signs
Temp Pulse Resp BP Pulse Ox
98.0 F 59 15 155/67 99
04/09/25 03:03 01/21/25 03:30 01/21/25 03:30 01/21/25 03:00 01/21/25 03:30
Physical Exam
General: Other (59y F in no acute distress.)
HEENT: Moist mucous membranes and PERRLA
Respiratory: Clear; No Wheezes, Rales or Rhonchi
Cardiac: S1/S2 and Regular Rhythm; No Murmur
GI: Soft, Non Distended, Normal Bowel Sounds and Other (L sided ostomy with brown stool in device. RLQ tenderness without rebound / guarding. Pos BS.)
Musculoskeletal: No Clubbing, No Cyanosis and No Edema
Skin: Other (Superficial laceration / 'scratch' L inner thigh with bleeding.)
Neuro: AO x 3 and Other (Chronic dysathria / R weakness - no new neurologic changes.)
Laboratory Results
-
01/20/25 22:45
01/20/25 22:45
Laboratory Results
Lactic Acid 1.0 mmol/L (0.7-2.0) 01/20/25 22:45
Total Bilirubin 0.4 mg/dl (0.2-1.3) 01/20/25 22:45
AST 15 U/L (14-36) 01/20/25 22:45
ALT 10 U/L (0-35) 01/20/25 22:45
Alkaline Phosphatase 82 U/L (38-126) 01/20/25 22:45
Lipase 571 U/L (23-300) H 01/20/25 22:45
Impression/Plan
-
A/P: Patient is a 59y F with complicated PMH who presents to ED complaining of abdominal pain.
Abdominal Pain
- Observe overnight for further evaluation and treatment.
- Mild elevation in lipase - but location of pain, lack of N/V not consistent with pancreatitis.
- CT scan done in the ED with chronic findings but no acute abnormalities to explain current presentation.
- Supportive care / pain control.
- Follow for any new / worsening symptoms.
- Allow clear liquid diet.
Recent SBO
- Ostomy now with significant stool output - doubt recurrence.
- CT does not show recurrent SBO / transition point / etc.
- Routine ostomy care / monitor outputs.
ASCVD
- Significant history of CVA, PAD, etc.
- Stable. No chest pain, no new focal deficits, no new LE wounds, etc.
- Continue usual CV med regimen.
- Follow for any new symptoms / complaints.
CKD III
- Stable. Renal function is at / near known baseline.
- RHETT during recent admission is improved.
- Follow for any changes.
Chronic Aspiration / Dysphagia
- Cleared for IDDSI 6 diet with thin liquids and aspiration precautions.
- Stick with liquids for now pending improvement in abdominal pain.
- Advance diet to IDDSI 6 as tolerated.
Hypothyroidism
- Continue T4 supplementation.
- Update TFTs.
Chronic Pain / Fibromyalgia
- Stable. Continue usual pain regimen.
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
Peripheral Neuropathy secondary to chemotherapy
Dysarthria s/p Partial Glossectomy
Diet-Controlled DM-II
- Stable. No acute issues.
- Follow for any changes.
DVT Prophylaxis: SCDs
Code Status: DNR
[2025-01-21 05:15] LABS: Hematocrit 29.3 % (37.0-47.0); Hemoglobin 9.7 g/dL (12.0-16.0); Mean Corp Hgb Conc. 33.1 g/dL (33.0-37.0); Mean Corpuscular Hgb 30.7 pg (27.0-31.0); Mean Corpuscular Volume 92.7 fL (81.0-99.0); Mean Platelet Volume 8.7 fL (7.4-10.4); Platelet Count 94 10^3/uL (130-400); Red Blood Cell Count 3.16 10^6/uL (4.20-5.40); White Blood Cell Count 8.8 10^3/uL (4.8-10.8)
[2025-01-21 05:34] LABS: Blood Urea Nitrogen 28 mg/dl (7-17); Calcium 9.2 mg/dl (8.4-10.2); Carbon Dioxide 21 mmol/L (22-30); Chloride 112 mmol/L (98-107); Estimated Creatinine Clearance 37 ml/min; Glucose 91 mg/dl (70-99); Lipase 372 U/L (23-300); Potassium 3.9 mmol/L (3.5-5.1); Sodium 142 mmol/L (135-145); eGFR 28.25
[2025-01-21] MEDS: SYNTHROID 175 MCG PO (06:10)
[2025-01-21] MEDS: ROXICODONE 5 MG PO ×2 (06:10→12:48)
[2025-01-21] MEDS: SODIUM BICARBONATE 650 MG PO ×3 (06:10→20:41)
[2025-01-21] MEDS: ATIVAN 0.25 MG PO ×2 (08:32→20:41)
[2025-01-21] MEDS: LOW STRENGTH ASPIRIN 81 MG PO (08:33)
[2025-01-21] MEDS: VITAMIN D3 (cholecalciferol) 25 MCG PO (08:33)
[2025-01-21] MEDS: PLAVIX 75 MG PO (08:35)
[2025-01-21] MEDS: NEURONTIN 300 MG PO ×2 (08:35→20:41)
[2025-01-21] MEDS: PROCARDIA XL (EXTENDED RELEASE) 30 MG PO (08:35)
[2025-01-21] MEDS: ZESTRIL 5 MG PO (08:35)
[2025-01-21] MEDS: PROTONIX 40 MG PO (08:35)
--- NOTE | 2025-01-21 09:15 | W.PN.HOSP.TC ---
Today's Communication/Plan
-
see bold
Assessment / Plan
Assessment / Plan
A/P: Patient is a 59y F with complicated PMH who presents to ED complaining of abdominal pain.
Abdominal Pain
- Mild elevation in lipase - but location of pain, lack of N/V not consistent with pancreatitis.
- CT scan done in the ED with chronic findings but no acute abnormalities to explain current presentation.
- Continue clear liquid diet for now since abd pain still 05/24
- Minimize opioids in light of recent SBO
Recent SBO
- Ostomy now with significant stool output - doubt recurrence.
- CT does not show recurrent SBO / transition point / etc.
- Routine ostomy care / monitor outputs.
ASCVD
- Significant history of CVA, PAD, etc.
- Continue usual CV med regimen.
CKD III
- Stable. Renal function is at / near known baseline.
- RHETT during recent admission is improved.
Chronic Aspiration / Dysphagia
- Cleared for IDDSI 6 diet with thin liquids and aspiration precautions.
- Stick with liquids for now pending improvement in abdominal pain.
- Advance diet to IDDSI 6 as tolerated.
Hypothyroidism
- Continue T4 supplementation.
Chronic Pain / Fibromyalgia
- Continue usual pain regimen.
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
Peripheral Neuropathy secondary to chemotherapy
Dysarthria s/p Partial Glossectomy
Diet-Controlled DM-II
- From [place]
DVT Prophylaxis: SQ lovenox
Code Status: DNR
Physical Exam
General: Obese, no acute distress
HEENT: Normocephalic, Atraumatic, EOMI, MMM
Respiratory: Clear to Auscultation bilaterally
Cardiac: Normal S1/S2, Regular Rate and Rhythm
GI: Soft, Nontender, Nondistended, Normal Bowel Sounds
Extremities: No Clubbing, Cyanosis, or Edema
Neuro: R sided weakness noted, mild dysarthria
Psych: Calm, Cooperative
Anticipated Discharge: 24 - 48 hours
Subjective/Interval History
-
Date of Service: January 21, 2025
Patient reports continued abdominal pain, 8 out of 10 in intensity. No fever, no vomiting.
Objective Data
-
Labs:
Laboratory Results
01/20/25 01/21/25
22:45 04:52
WBC 9.7 8.8
Hgb 11.1 L 9.7 L
Hct 33.4 L 29.3 L
Plt Count 110 L 94 L
Sodium 141 142
Potassium 3.9 3.9
Chloride 108 H 112 H
Carbon Dioxide 20 L 21 L
BUN 31 H 28 H
Creatinine 2.1 H 2.0 H
Glucose 98 91
Calcium 9.4 9.2
Total Bilirubin 0.4
AST 15
ALT 10
Alkaline Phosphatase 82
Vital Signs:
Vital Signs
Temp Pulse Resp BP Pulse Ox
97.4 F 61 14 128/88 97
01/21/25 08:34 01/21/25 08:34 01/21/25 08:34 01/21/25 08:34 01/21/25 08:34
[2025-01-21] MEDS: BUSPAR 10 MG PO ×2 (09:48→20:43)
[2025-01-21] MEDS: EFFEXOR XR 150 MG PO (09:48)
[2025-01-21] MEDS: EFFEXOR XR 75 MG PO (09:48)
--- NOTE | 2025-01-21 14:43 | PTCARENOTE ---
Pt grossly incontinent of urine - pt cleaned and linens changed. Blood noted on sheets from pt scratching legs and groin area. Pt continues to have brown/soft/mucoid output from ileostomy. Pt is drowsy. Poor appetite.
[2025-01-21] MEDS: NEURONTIN PO (18:03)
--- NOTE | 2025-01-21 18:21 | PTCARENOTE ---
Pt transferred from ED in bed. Pt AAOX3, complains of abdominal pain, see MAR. Pt complaining of itching, provider notified. Pt oriented to unit, call oglesby within reach. Will continue with current plan.
[2025-01-21] MEDS: LOVENOX 40 MG SC (18:24)
[2025-01-21] MEDS: MELATONIN 5 MG PO (20:41)
[2025-01-21] MEDS: LIPITOR 40 MG PO (20:41)
[2025-01-21] MEDS: PEPCID 20 MG PO (20:41)
[2025-01-21] MEDS: LOTRIMIN 1% CREAM 1 APPLIC TOPICAL (20:45)
[2025-01-22] MEDS: SYNTHROID 175 MCG PO (04:26)
[2025-01-22] MEDS: SODIUM BICARBONATE 650 MG PO ×3 (04:26→19:50)
[2025-01-22] MEDS: DILAUDID 0.5 MG IV ×3 (04:26→17:31)
[2025-01-22 06:00] VITALS: BMI 32.0
[2025-01-22 07:30] VITALS: BP 141/69
[2025-01-22 07:39] LABS: Hematocrit 28.9 % (37.0-47.0); Hemoglobin 9.3 g/dL (12.0-16.0); Mean Corp Hgb Conc. 32.2 g/dL (33.0-37.0); Mean Corpuscular Hgb 30.5 pg (27.0-31.0); Mean Corpuscular Volume 94.8 fL (81.0-99.0); Mean Platelet Volume 9.2 fL (7.4-10.4); Platelet Count 107 10^3/uL (130-400); Red Blood Cell Count 3.05 10^6/uL (4.20-5.40); Red Cell Dist. Width 14.3 % (11.5-14.5); White Blood Cell Count 6.1 10^3/uL (4.8-10.8)
[2025-01-22 08:18] LABS: Blood Urea Nitrogen 29 mg/dl (7-17); Calcium 9.4 mg/dl (8.4-10.2); Carbon Dioxide 22 mmol/L (22-30); Chloride 110 mmol/L (98-107); Estimated Creatinine Clearance 35 ml/min; Glucose 74 mg/dl (70-99); Lipase 219 U/L (23-300); Magnesium 1.9 mg/dl (1.6-2.3); Phosphorus 4.1 mg/dl (2.5-4.5); Potassium 4.4 mmol/L (3.5-5.1); Sodium 141 mmol/L (135-145); eGFR 26.64
[2025-01-22] MEDS: ATIVAN PO (08:50)
--- NOTE | 2025-01-22 09:49 | W.PN.HOSP.TC ---
Today's Communication/Plan
-
see bold
Assessment / Plan
Assessment / Plan
A/P: Patient is a 59y F with complicated PMH who presents to ED complaining of abdominal pain.
Abdominal Pain
- Mild elevation in lipase - but location of pain, lack of N/V not consistent with pancreatitis.
- CT scan done in the ED with chronic findings but no acute abnormalities to explain current presentation
- Patient continues to have abdominal pain, 8 out of 10 in intensity
- Appreciate GI input, suspect secondary to obstipation
- GI recommends avoidance of raw fruits/vegetables, and favor liquids and softer foods
- Continue liquid diet for now since abd pain still 8/10
- Minimize opioids in light of recent SBO
Recent SBO
- Ostomy now with significant stool output - doubt recurrence.
- CT does not show recurrent SBO / transition point / etc.
- Routine ostomy care / monitor outputs.
ASCVD
- Significant history of CVA, PAD, etc.
- Continue usual CV med regimen.
CKD III
- Stable. Renal function is at / near known baseline.
- RHETT during recent admission is improved.
Chronic Aspiration / Dysphagia
- Cleared for IDDSI 6 diet with thin liquids and aspiration precautions.
- Stick with liquids for now pending improvement in abdominal pain.
- Advance diet to IDDSI 6 as tolerated.
Hypothyroidism
- Continue T4 supplementation.
Chronic Pain / Fibromyalgia
- Continue usual pain regimen.
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
Peripheral Neuropathy secondary to chemotherapy
Dysarthria s/p Partial Glossectomy
Diet-Controlled DM-II
- From [place]
DVT Prophylaxis: SQ lovenox
Code Status: DNR
Total time spent to see the patient on the floor, examine the patient, review data and lab results, discuss treatment plan with patient, nursing staff around 40 minutes.
Physical Exam
General: Obese, no acute distress
HEENT: Normocephalic, Atraumatic, EOMI, MMM
Respiratory: Clear to Auscultation bilaterally
Cardiac: Normal S1/S2, Regular Rate and Rhythm
GI: Soft, Nontender, Nondistended, Normal Bowel Sounds
Extremities: No Clubbing, Cyanosis, or Edema
Neuro: R sided weakness noted, mild dysarthria
Psych: Calm, Cooperative
Anticipated Discharge: Within 24 hours
Subjective/Interval History
-
Date of Service: January 22, 2025
Patient continues to have abdominal pain, 8 out of 10 in intensity. No nausea, no vomiting. She has a poor appetite. No fever.
Objective Data
-
Labs:
Laboratory Results
01/22/25
06:37
WBC 6.1
Hgb 9.3 L
Hct 28.9 L
Plt Count 107 L
Sodium 141
Potassium 4.4
Chloride 110 H
Carbon Dioxide 22
BUN 29 H
Creatinine 2.1 H
Glucose 74
Calcium 9.4
Vital Signs:
Vital Signs
Temp Pulse Resp BP Pulse Ox
97.6 F 110 18 101/66 97
01/22/25 07:30 01/22/25 07:30 01/22/25 07:30 01/22/25 07:30 01/22/25 07:30
I&O
01/21/25 01/22/25 01/23/25
06:59 06:59 06:59
Intake Total 240 / 240
Balance 240 / 240
[2025-01-22] MEDS: PLAVIX 75 MG PO (09:51)
[2025-01-22] MEDS: EFFEXOR XR 75 MG PO (09:51)
[2025-01-22] MEDS: LOW STRENGTH ASPIRIN 81 MG PO (09:51)
[2025-01-22] MEDS: NEURONTIN 300 MG PO ×3 (09:52→19:50)
[2025-01-22] MEDS: ZESTRIL 5 MG PO (09:52)
[2025-01-22] MEDS: VITAMIN D3 (cholecalciferol) 25 MCG PO (09:52)
[2025-01-22] MEDS: LOTRIMIN 1% CREAM 1 APPLIC TOPICAL ×2 (09:53→19:53)
[2025-01-22] MEDS: PROCARDIA XL (EXTENDED RELEASE) 30 MG PO (09:53)
[2025-01-22] MEDS: PROTONIX 40 MG PO (09:53)
[2025-01-22] MEDS: EFFEXOR XR 150 MG PO (09:58)
[2025-01-22] MEDS: BUSPAR 10 MG PO ×2 (09:58→19:50)
[2025-01-22] MEDS: ROBITUSSIN DM 5 ML PO (09:59)
[2025-01-22] MEDS: ATIVAN 0.25 MG PO ×2 (10:08→19:49)
--- NOTE | 2025-01-22 12:26 | CON.GI ---
Addendum entered and electronically signed by Mars Ambriz MD 01/22/25 14:53:
I saw and examined the patient.
The TOMOGRAPHIC TECH or PA's note was reviewed and I agree with the note.
Comment: 59yo female with multiple prior abdominal surgeries recently admitted 01/12 to 01/17 for PSBO due to adhesions. 01/12 CT showed dilated SB loops involving distal SB. 01/13 SBFT showed no obstruction. Repeat CT 01/16 before d/c showed no acute
findings. After d/c she c/o increasing RLQ pain. CT this admission 01/20 shows no obstruction. There are changes from prior partial colon resection and LLQ ostomy, PEG in satisfactory position. She reports decreased air in her ostomy bag and less
stool. She has hx PEG following CVA but has been eating for last 9 months. She has been eating large salads. She has had hysterectomy for cervical CA, colectomy for radiation colitis, relocation of ileoscopy due to parastomal hernia, ventral
hernia repair
REC:
Suspect pain due to obstipation following recent admission for PSBO
Keep on clears and once symptoms improve, advance diet to mechanical soft of low residue
Reinforced that she should avoid raw fruits/vegetables
Given her risk for SBO, she will need to modify diet, and favor liquids, softer foods.
Agree with minimizing opioids
Monitor ostomy output
Check OBS series if lack of improvement
Original Note:
Consultation
-
Date/Time Consultation Requested: 01/22/25 1055
Date/Time Consultation Performed: 01/22/25 1215
Requesting Provider: Dr. Amy Berger
Performing Provider: Dr. Prieto/WAYNE Francois
Reason for Consultation: abd pain
Medical History
Chief Complaint / HPI
Chief Complaint: Abdominal pain
History of Present Illness:
59 year old female with a past medical history partial small bowel obstruction (last admission 01/11/25-01/17/25), ileus, pneumonia, CVA 08/2023 with residual right sided hemiparesis, status post PEG tube, hypertension, CKD 3, RA, COPD, hypothyroidism,
UTI, cervical cancer status post hysterectomy, chemoradiation, radiation colitis requiring colectomy with ileocolostomy done at [facility] in 2016, complicated by parastomal hernia status post re-sitting of end ileostomy to left abdomen open ventral
incisional hernia repair by Dr. Adkins (2021): CAD, diabetes, parotid mass with obstructive sleep apnea on CPAP, depression, anxiety, peripheral neuropathy, history of LA grade C esophagitis who is able to eat and drink without use of PEG tube for
greater than 9 months discharged to senior living, who was just hospitalized from 01/11/2025 through 01/17/2025 for partial small bowel obstruction and coffee-ground emesis, who presents back to the hospital with recurrent abdominal discomfort just to
the right of her umbilicus. We are asked to evaluate for the same. She states this is reminiscent of how her partial small bowel obstructions start. She states that she is without an appetite however is tolerating clear liquids. She has not had
any signs of vomiting. She has brown ileostomy output in the left lower quadrant however she states that she has not passed flatus through her bag in 24 hours. She does state that the pain is dull, constant, nonradiating. She also states that she
feels a 'lump'. Just to the right of her umbilicus which she states she has never felt before. She denies any fevers, chills, vomiting, melena, hematochezia, dysphagia or odynophagia. We did review her dietary choices since her discharge. She
has been eating large dinner salads (lettuce, cucumbers and red cabbage) she sometimes will also eat other vegetables but usually not raw at least 3 times a week and has had at least 3 of them since discharge. She states that she has been doing
this for at least the past 6 to 8 months. She just started eating by mouth approximately [address] of the abdomen and pelvis without oral or IV contrast performed this admission without evidence of intestinal obstruction. Changes of
prior partial colon resection and left lower quadrant ostomy. PEG tube remains in satisfactory position. Mild hydronephrosis of the right kidney and mild right hydroureter. No obstructing stone is appreciated findings similar compared to prior
CT. Patient is afebrile, WBC 6.1, hemoglobin 9.3, hematocrit 28.9, platelets 107, sodium 141, potassium 4.4, BUN 29, creatinine 2.1, glucose 74, lipase 219 (down from 372, down from 571), total bilirubin 0.4, AST 15, ALT 10, alk phos 82. Urine
culture negative.
Past Medical History
Past Medical History: Other (CVA 08/2023 with residual R hemiparesis (on Plavix), s/p PEG tube, HTN, CKD-3, RA, COPD, hypothyroidism, cervical cancer (s/p hysterectomy, chemo, radiation), radiation colitis requiring colectomy with ileostomy at [facility]
2016, CAD, NIDDM, parotid mass, RACHEL (on CPAP), depression, anxiety, neuropathy)
Past Surgical History: Other (Bowel resection and colostomy due to colon perforation Colostomy Revision x 4 and ultimate Ileostomy (2021) G-tube Placement Hemiglossectomy & parotidectomy Multiple Digital Amputations)
Social History
Tobacco: Smoker
Alcohol: None
Drug: None
Personal:
Living: Halfway
Employment: Disabled
Family History
Family History: Other (no family history of GI malignancies)
Allergies / Home Medications
Allergy/AdvReac Type Severity Reaction Status Date / Time
adhesive Allergy TAPE-rash Verified 01/20/25 22:16
and itching
infliximab [From Remicade] Allergy Anaphylaxis Verified 01/20/25 22:16
latex Allergy Rash, Verified 01/20/25 22:16
itching,
Hives
Penicillins Allergy Unknown, Verified 01/20/25 22:16
tolerated
amoxicillin
and
ampicillin
in the past
Sulfa (Sulfonamide Allergy Hives, rash Verified 01/20/25 22:16
Antibiotics)
�Medication �Instructions �Recorded
clopidogrel 75 mg tablet (Plavix) 75 mg PO DAILY Heart 06/25/23
Disease/Condition
acetaminophen 325 mg tablet 650 mg PO Q4HPRN PRN mild 01/22/24
pain/temp>100F
atorvastatin 40 mg tablet 40 mg PO HS High Cholesterol 01/22/24
cholecalciferol (vitamin D3) 25 25 mcg PO DAILY Supplement 01/22/24
mcg (1,000 unit) tablet (Vitamin
D3)
gabapentin 300 mg capsule 300 mg PO TID Neurological 01/22/24
Condition
loratadine 10 mg tablet 10 mg PO DAILY Allergies 01/22/24
melatonin 5 mg tablet 5 mg PO HS Sleep 01/22/24
sodium bicarbonate 650 mg tablet 650 mg PO Q8H Electrolyte Repletion 01/22/24
sodium phosphates 19 gram-7 118 ml NH DAILYPRN PRN if dulcolax 01/22/24
gram/118 mL enema (Fleet Enema) is ineffective after 24hrs
aspirin 81 mg chewable tablet 81 mg PO DAILY Blood Clot 07/15/24
Prevention/Tx
bisacodyl 10 mg rectal suppository 10 mg NH DAILYPRN PRN if no bm 07/15/24
(Dulcolax (bisacodyl)) aftr mom
diclofenac sodium 1 % topical gel 2 g topical TID left shoulder 07/15/24
famotidine 20 mg tablet 20 mg PO HS Gastrointestinal Issue 07/15/24
levothyroxine 75 mcg tablet 75 mcg PO DAILY Thyroid 07/15/24
(Synthroid)
pantoprazole 40 mg granules 40 mg PO DAILY Gastrointestinal 07/15/24
delayed-release for susp in packet Issue
venlafaxine 225 mg tablet,extended 225 mg PO DAILY Depression 07/15/24
release 24 hr
lisinopril 5 mg tablet 5 mg PO DAILY #30 tabs 01/17/25
nifedipine 30 mg tablet,extended 30 mg PO DAILY #30 tabs 01/17/25
release
buspirone 10 mg tablet 10 mg PO BID 01/20/25
clotrimazole 1 % topical cream 1 applic topical TID left upper arm 01/20/25
levothyroxine 100 mcg tablet 100 mcg PO DAILY 01/20/25
(Synthroid)
lorazepam 0.5 mg tablet (Ativan) 0.25 mg PO BID 01/20/25
magnesium hydroxide 400 mg/5 mL 30 ml PO [id number] PRN no bm x3 days 01/20/25
oral suspension (Milk of Magnesia)
oxycodone 5 mg tablet 5 mg PO Q6HPRN PRN severe pain 01/20/25
Review of Systems
-
All other systems: A 12 pt ROS was Negative except as stated above in HPI
Vital Signs
Temp Pulse Resp BP Pulse Ox
97.6 F 52 18 141/69 97
01/22/25 07:30 01/22/25 07:30 01/22/25 07:30 01/22/25 07:30 01/22/25 07:30
Physical Exam
Exam
General: No Apparent Distress
HEENT: Anicteric
Respiratory: Clear (Anterior)
Cardiac: Regular Rhythm
GI: Soft, Non Distended, Normal Bowel Sounds and Tender (Periumbilical, just to right of umbilicus firm nodular area. PEG tube left upper quadrant, ileostomy left lower abdomen (brown semisoft stool present in bag))
Skin: Warm and Dry
Neuro: AO x 3 and Other (Right-sided dense hemiparesis)
Psych: Calm
Results
WBC 6.1 10^3/uL (4.8-10.8) 01/22/25 06:37
Hgb 9.3 g/dL (12.0-16.0) L 01/22/25 06:37
Hct 28.9 % (37.0-47.0) L 01/22/25 06:37
MCV 94.8 fL (81.0-99.0) 01/22/25 06:37
Plt Count 107 10^3/uL (130-400) L 01/22/25 06:37
Absolute Neuts (auto) 7.1 10^3/uL (1.4-6.5) H 01/20/25 22:45
Sodium 141 mmol/L (135-145) 01/22/25 06:37
Potassium 4.4 mmol/L (3.5-5.1) 01/22/25 06:37
Chloride 110 mmol/L (98-107) H 01/22/25 06:37
Carbon Dioxide 22 mmol/L (22-30) 01/22/25 06:37
BUN 29 mg/dl (7-17) H 01/22/25 06:37
Creatinine 2.1 mg/dL (0.6-1.0) H 01/22/25 06:37
Calcium 9.4 mg/dl (8.4-10.2) 01/22/25 06:37
Total Bilirubin 0.4 mg/dl (0.2-1.3) 01/20/25 22:45
AST 15 U/L (14-36) 01/20/25 22:45
ALT 10 U/L (0-35) 01/20/25 22:45
Alkaline Phosphatase 82 U/L (38-126) 01/20/25 22:45
Lipase 219 U/L (23-300) 01/22/25 06:37
Diagnostic Image Results:
CT abdomen and pelvis without oral or IV contrast 01/20/2025:
1. No CT evidence of intestinal obstruction. Changes of prior partial colon resection and left lower quadrant ostomy.
2. PEG tube remains in satisfactory position.
3. Mild hydronephrosis of the right kidney, and mild right hydroureter. No obstructing stone is appreciated. Findings are similar compared to prior CT.

CT abdomen and pelvis with oral contrast only 01/16/2025:
IMPRESSION:
1. No acute findings within the abdomen or pelvis.
2. Chronic incidental findings detailed above.
Single contrast small bowel x-ray 01/13/2025:
No evidence of small bowel obstruction
CT abdomen and pelvis with IV contrast 01/12/2025:
1. There are dilated loops of small bowel involving predominantly the distal small bowel. Small bowel obstruction cannot be excluded however point of transition is not identified. There is an ileostomy and subtotal colectomy.
2. The left kidney is smaller than the right, unchanged. There are left renal calculi. There is no evidence of hydronephrosis or obstruction.
3. There is a femoral to femoral crossover graft, unchanged.
4. There are severe degenerative changes in the lumbar spine, unchanged
Prior GI Procedures:
Endoscopy, 2018, Dr. Perez:
Normal duodenal bulb and second portion of the duodenum. Biopsied.
- Erythematous mucosa in the antrum. Biopsied.
- Small hiatal hernia.
- Normal cardia, gastric fundus and gastric body.
- LA Grade C reflux esophagitis.
- Z-line irregular, 40 cm from the incisors.
Flexible sigmoidoscopy, 2016, Dr. Prieto:
- Stricture at 18 cm proximal to the anus. Unable to traverse. Biopsied. Likely benign from radiation.
- Diffuse mild- moderate inflammation was found in the
rectum (less severe in the rectum) and in the sigmoid
colon, rule out radiation colitis. Biopsied.
Recommendation: - Discharge patient to home.
- Low residue diet as tolerated.
- Await pathology results.
- Refer to a colo-rectal surgeon
Colonoscopy, 2012, Dr. Perez:
Inflamed, nodular, scarred and ulcerated mucosa.
Biopsied.
- Stricture colon. Follow up with surgery was recommended.
Assessment / Plan
-
59 year old female with a past medical history partial small bowel obstruction (last admission 01/11/25-01/17/25), ileus, pneumonia, CVA 08/2023 with residual right sided hemiparesis, status post PEG tube, hypertension, CKD 3, RA, COPD, hypothyroidism,
UTI, cervical cancer status post hysterectomy, chemoradiation, radiation colitis requiring colectomy with ileocolostomy done at [facility] in 2015, complicated by parastomal hernia status post re-sitting of end ileostomy to left abdomen open ventral
incisional hernia repair by Dr. Adkins (2021): CAD, diabetes, parotid mass with obstructive sleep apnea on CPAP, depression, anxiety, peripheral neuropathy, history of LA grade C esophagitis who is able to eat and drink without use of PEG tube for
greater than 9 months discharged to senior living, who was just hospitalized from 01/11/2025 through 01/17/2025 for partial small bowel obstruction and coffee-ground emesis, who presents back to the hospital with recurrent abdominal discomfort just to
the right of her umbilicus. We are asked to evaluate for the same. CT does not show evidence of partial small bowel obstruction. Patient however feels as if this is the way she always presents prior to onset of partial small bowel obstruction
versus ileus. She states that she has no appetite. She has decrease in flatus in her bag however still has production of brown stool within her ostomy. She did have a mildly elevated lipase which came down within normal limits. No abnormal LFTs.
Pancreatic inflammation seen on imaging. Patient just started eating solid food again approximately 9 months ago. Upon further investigation of her eating habits she does admit to eating a large dinner salads at least 3 times a week. Consisting
of lettuce, cucumbers, red cabbage. She does not specifically consume other raw vegetables. Other vegetables she may eat may be cooked. She states that since discharge she has had at least 3 of these in the 3 days that she was out of the hospital
before next admission.
Impression:
Abdominal discomfort, reminiscent of prodrome leading to her prior partial small bowel obstruction
--> Patient with consumption of large dinner salads 3 days in a row leading up to admission
--> No obstruction seen on CT, passing stool
Recent partial small bowel obstruction
Elevated lipase, now resolved -> LFTs within normal limits, pancreas with normal imaging
Anemia with prior coffee ground emesis 01/11/2025, however with brown stool in ileostomy
Plan:
- Continue pantoprazole and famotidine daily
- Continue clear liquids
- Recommend low residue diet once tolerating solid diet. Discussed with patient at length given her multiple surgeries as well as history of small bowel obstructions and partial small bowel obstructions
- Minimize opiates to avoid constipation
- Further recommendations to be forthcoming.
-
-
Thank you for consultation and allowing me to participate in the patient's care. Please call the partition assembler GI physician during the after hours with any questions or concerns.
[2025-01-22 15:00] VITALS: BP 155/79
--- NOTE | 2025-01-22 16:00 | CM ---
Addendum entered by Zoey Dixon 01/22/25 16:06:
[facility]
Report [phone]
.
Original Note:
production operations manager reviewed patient's chart and met with patient and patient resided at [facility], per patient she has been there for 1 and 1/2 years. intermediate designer care bedhold, patient was admitted under OBS, DEMPSEY letter provided to
patient signed and placed on chart. Patient requires assist with adl's and is able to stand and pivot to w/c.
Plan; Patient to return to [facility] when stable.
[2025-01-22] MEDS: LOVENOX 40 MG SC (17:25)
[2025-01-22] MEDS: LIPITOR 40 MG PO (19:49)
[2025-01-22] MEDS: MELATONIN 5 MG PO (19:50)
[2025-01-22] MEDS: PEPCID 20 MG PO (19:50)
[2025-01-22 23:30] VITALS: BP 109/58
[2025-01-23] MEDS: SYNTHROID 175 MCG PO (03:34)
[2025-01-23] MEDS: DILAUDID 0.5 MG IV ×4 (03:34→17:25)
[2025-01-23] MEDS: SODIUM BICARBONATE 650 MG PO ×3 (03:34→21:15)
[2025-01-23] MEDS: ROXICODONE 5 MG PO (05:49)
[2025-01-23 06:00] VITALS: BMI 31.8
[2025-01-23 07:30] VITALS: BP 173/86
[2025-01-23 08:21] LABS: Hematocrit 29.4 % (37.0-47.0); Hemoglobin 9.7 g/dL (12.0-16.0); Mean Corpuscular Hgb 30.3 pg (27.0-31.0); Mean Corpuscular Volume 91.9 fL (81.0-99.0); Platelet Count 93 10^3/uL (130-400); Red Cell Dist. Width 13.5 % (11.5-14.5); White Blood Cell Count 6.2 10^3/uL (4.8-10.8)
[2025-01-23 08:41] LABS: Blood Urea Nitrogen 27 mg/dl (7-17); Calcium 9.6 mg/dl (8.4-10.2); Carbon Dioxide 22 mmol/L (22-30); Chloride 108 mmol/L (98-107); Estimated Creatinine Clearance 38 ml/min; Glucose 79 mg/dl (70-99); Potassium 4.5 mmol/L (3.5-5.1); Sodium 140 mmol/L (135-145); eGFR 30.04
[2025-01-23] MEDS: NEURONTIN 300 MG PO ×3 (08:41→21:15)
[2025-01-23] MEDS: PROTONIX 40 MG PO (08:41)
[2025-01-23] MEDS: ATIVAN 0.25 MG PO ×2 (08:41→21:12)
[2025-01-23] MEDS: PLAVIX 75 MG PO (08:41)
[2025-01-23] MEDS: BUSPAR 10 MG PO ×2 (08:41→21:13)
[2025-01-23] MEDS: VITAMIN D3 (cholecalciferol) 25 MCG PO (08:41)
[2025-01-23] MEDS: EFFEXOR XR 150 MG PO (08:41)
[2025-01-23] MEDS: LOW STRENGTH ASPIRIN 81 MG PO (08:41)
[2025-01-23] MEDS: EFFEXOR XR 75 MG PO (08:45)
[2025-01-23] MEDS: ZESTRIL 5 MG PO (08:45)
[2025-01-23] MEDS: PROCARDIA XL (EXTENDED RELEASE) 30 MG PO (08:46)
--- NOTE | 2025-01-23 08:46 | W.PN.HOSP.TC ---
Today's Communication/Plan
-
see bold
Assessment / Plan
Assessment / Plan
A/P: Patient is a 59y F with complicated PMH who presents to ED complaining of abdominal pain.
Abdominal Pain
- Mild elevation in lipase - but location of pain, lack of N/V not consistent with pancreatitis.
- CT scan done in the ED with chronic findings but no acute abnormalities to explain current presentation
- Patient continues to have abdominal pain, 8 out of 10 in intensity
- Appreciate GI input, suspect secondary to obstipation vs stoma being too small
- GI recommends avoidance of raw fruits/vegetables, and favor liquids and softer foods
- Continue full liquid diet for now since abd pain still 8/10
- Minimize opioids in light of recent SBO
- C/s gen surg, GI ordered SBFT - which cannot be done until Mon
Recent SBO
- Ostomy now with significant stool output - doubt recurrence.
- CT does not show recurrent SBO / transition point / etc.
- Routine ostomy care / monitor outputs.
ASCVD
- Significant history of CVA, PAD, etc.
- Continue usual CV med regimen.
CKD III
- Stable. Renal function is at / near known baseline.
- RHETT during recent admission is improved.
Chronic Aspiration / Dysphagia
- Cleared for IDDSI 6 diet with thin liquids and aspiration precautions.
- Stick with liquids for now pending improvement in abdominal pain.
- Advance diet to IDDSI 6 as tolerated.
Hypothyroidism
- Continue T4 supplementation.
Chronic Pain / Fibromyalgia
- Continue usual pain regimen.
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
Peripheral Neuropathy secondary to chemotherapy
Dysarthria s/p Partial Glossectomy
Diet-Controlled DM-II
- From NH
DVT Prophylaxis: SQ lovenox
Code Status: DNR
Total time spent to see the patient on the floor, examine the patient, review data and lab results, discuss treatment plan with patient, nursing staff around 41 minutes.
Physical Exam
General: Obese, no acute distress
HEENT: Normocephalic, Atraumatic, EOMI, MMM
Respiratory: Clear to Auscultation bilaterally
Cardiac: Normal S1/S2, Regular Rate and Rhythm
GI: Soft, tender at RLQ, Nondistended, Normal Bowel Sounds, +ostomy
Extremities: No Clubbing, Cyanosis, or Edema
Neuro: R sided weakness noted, mild dysarthria
Psych: Calm, Cooperative
Anticipated Discharge: > 48 hours
Subjective/Interval History
-
Date of Service: January 23, 2025
Still having 8/10 abd pain. No N/V, no CP/SOB. No fever.
Objective Data
-
Labs:
Laboratory Results
01/23/25
07:35
WBC 6.2
Hgb 9.7 L
Hct 29.4 L
Plt Count 93 L
Sodium 140
Potassium 4.5
Chloride 108 H
Carbon Dioxide 22
BUN 27 H
Creatinine 1.9 H
Glucose 79
Calcium 9.6
Vital Signs:
Vital Signs
Temp Pulse Resp BP Pulse Ox
97.8 F 56 18 173/86 95
01/23/25 07:30 01/23/25 07:30 01/23/25 07:30 01/23/25 07:30 01/23/25 07:30
I&O
01/22/25 01/23/25 01/24/25
06:59 06:59 06:59
Intake Total 240 / 240 1200 / 1200
Output Total
Balance 240 / 240 1175 / 1175
[2025-01-23] MEDS: LOTRIMIN 1% CREAM 1 APPLIC TOPICAL ×2 (08:48→21:14)
--- NOTE | 2025-01-23 10:51 | CM ---
Patient to return to [facility] when stable.
[facility]
Report [phone]
.
--- NOTE | 2025-01-23 11:28 | W.PN.GI.CBS2 ---
Addendum entered and electronically signed by Cindy Gan Do, MD 01/23/25 17:43:
I saw and examined the patient.
The BATTERY PLATE ASSEMBLER's note was reviewed and I agree with the note.
Comment: She continues to c/o abd pain around periumblical area of circular nodularity. States ostomy output is down. Vitals reviewed Labs reviewed.
Impression
- UGI with SBFT
- Case d/w surgery consider if there is stenosis at ostomy site
- Bowel regimen
- Diet as tolerates
Will follow with you
Original Note:
Today's Communication / Plan
-
As per plan
Assessment / Plan
-
59 year old female with a past medical history partial small bowel obstruction (last admission 01/11/25-01/17/25), ileus, pneumonia, CVA 08/2023 with residual right sided hemiparesis, status post PEG tube, hypertension, CKD 3, RA, COPD, hypothyroidism,
UTI, cervical cancer status post hysterectomy, chemoradiation, radiation colitis requiring colectomy with ileocolostomy done at [facility] in 2016, complicated by parastomal hernia status post re-sitting of end ileostomy to left abdomen open ventral
incisional hernia repair by Dr. Adkins (2021): CAD, diabetes, parotid mass with obstructive sleep apnea on CPAP, depression, anxiety, peripheral neuropathy, history of LA grade C esophagitis who is able to eat and drink without use of PEG tube for
greater than 9 months [facility], who was just hospitalized from 01/11/2025 through 01/17/2025 for partial small bowel obstruction and coffee-ground emesis, who presents back to the hospital with recurrent abdominal discomfort just to
the right of her umbilicus. We are asked to evaluate for the same. CT does not show evidence of partial small bowel obstruction. Patient however feels as if this is the way she always presents prior to onset of partial small bowel obstruction
versus ileus. She states that she has no appetite. She has decrease in flatus in her bag however still has production of brown stool within her ostomy. She did have a mildly elevated lipase which came down within normal limits. No abnormal LFTs.
Pancreatic inflammation seen on imaging. Patient just started eating solid food again approximately 9 months ago. Upon further investigation of her eating habits she does admit to eating a large dinner salads at least 3 times a week. Consisting
of lettuce, cucumbers, red cabbage. She does not specifically consume other raw vegetables. Other vegetables she may eat may be cooked. She states that since discharge she has had at least 3 of these in the 3 days that she was out of the hospital
before next admission.
Impression:
Abdominal discomfort, reminiscent of prodrome leading to her prior partial small bowel obstruction
--> Patient with consumption of large dinner salads 3 days in a row leading up to admission
--> No obstruction seen on CT, passing stool and flatus via ileostomy bag (brown in color)
Recent partial small bowel obstruction
Elevated lipase, now resolved -> LFTs within normal limits, pancreas with normal imaging
Anemia with prior coffee ground emesis 01/11/2025, however with brown stool in ileostomy. Hemoglobin stable.
Plan:
- Continue pantoprazole and famotidine daily
- Diet has been advanced to full liquids. Patient tolerated
- Recommend low residue diet once tolerating solid diet. Discussed with patient at length given her multiple surgeries as well as history of small bowel obstructions and partial small bowel obstructions
-If with worsening symptoms obtain bowel imaging
- Minimize opiates to avoid constipation
- Further recommendations to be forthcoming.
Subjective
Subjective
Date of Service: January 23, 2025
Patient with diet increased to full liquids. Tolerating this this morning. There is liquid and semiformed medium brown stool in ileostomy bag. As well as flatus in ileostomy bag. This is improved from yesterday where there was no flatus in
ileostomy bag. They did have to empty stool from her bag this morning. Patient still with abdominal discomfort. No white count, hemoglobin stable. Patient without any nausea, vomiting.
Objective
Data Reviewed
Laboratory Data:
Laboratory Results
01/23/25 07:35
01/23/25 07:35
Laboratory Results
Phosphorus 4.1 mg/dl (2.5-4.5) 01/22/25 06:37
Magnesium 1.9 mg/dl (1.6-2.3) 01/22/25 06:37
Total Bilirubin 0.4 mg/dl (0.2-1.3) 01/20/25 22:45
AST 15 U/L (14-36) 01/20/25 22:45
ALT 10 U/L (0-35) 01/20/25 22:45
Alkaline Phosphatase 82 U/L (38-126) 01/20/25 22:45
Lipase 219 U/L (23-300) 01/22/25 06:37
Vital Signs and I&O:
Vital Signs
Temp Pulse Resp BP Pulse Ox
97.8 F 56 18 173/86 95
01/23/25 07:30 01/23/25 07:30 01/23/25 07:30 01/23/25 08:46 01/23/25 07:30
I&O
01/22/25 01/23/25 01/24/25
06:59 06:59 06:59
Intake Total 240 / 240 1200 / 1200
Output Total
Balance 240 / 240 1175 / 1175
Physical Exam
Physical Exam
HEENT: Anicteric
Cardiology: Normal Sinus Rhythm
Pulmonary: Clear
GI: Soft, Non Distended, Tender (Mild tenderness just to right of umbilicus), Normal Bowel Sounds and Other (PEG tube not being used left upper quadrant, left lower quadrant ileostomy with medium brown-colored stool liquid and semisolid as well as
flatus in bag)
Neuro: Non Focal
[2025-01-23 15:28] VITALS: BP 156/80
[2025-01-23] MEDS: LOVENOX 40 MG SC (17:25)
[2025-01-23] MEDS: PEPCID 20 MG PO (21:15)
[2025-01-23] MEDS: LIPITOR 40 MG PO (21:15)
[2025-01-23] MEDS: MELATONIN 5 MG PO (21:15)
[2025-01-23 22:47] VITALS: BP 128/62
[2025-01-24] MEDS: ROXICODONE 5 MG PO ×2 (03:35→13:38)
[2025-01-24] MEDS: SODIUM BICARBONATE 650 MG PO ×3 (04:56→21:30)
[2025-01-24] MEDS: SYNTHROID 175 MCG PO (04:57)
[2025-01-24] MEDS: DILAUDID 0.5 MG IV ×3 (05:49→15:57)
[2025-01-24 06:00] VITALS: BMI 32.2
[2025-01-24 07:00] VITALS: BP 124/59
[2025-01-24] MEDS: ATIVAN 0.25 MG PO ×2 (08:04→21:27)
[2025-01-24] MEDS: LOW STRENGTH ASPIRIN 81 MG PO (08:05)
[2025-01-24] MEDS: VITAMIN D3 (cholecalciferol) 25 MCG PO (08:05)
[2025-01-24] MEDS: PROCARDIA XL (EXTENDED RELEASE) 30 MG PO (08:05)
[2025-01-24] MEDS: EFFEXOR XR 150 MG PO (08:05)
[2025-01-24] MEDS: PLAVIX 75 MG PO (08:05)
[2025-01-24] MEDS: NEURONTIN 300 MG PO ×3 (08:05→21:30)
[2025-01-24] MEDS: PROTONIX 40 MG PO (08:05)
[2025-01-24] MEDS: EFFEXOR XR 75 MG PO (08:05)
[2025-01-24] MEDS: ZESTRIL 5 MG PO (08:05)
[2025-01-24] MEDS: BUSPAR 10 MG PO ×2 (08:05→21:29)
[2025-01-24] MEDS: LOTRIMIN 1% CREAM 1 APPLIC TOPICAL ×2 (08:06→21:29)
[2025-01-24] MEDS: OMNIPAQUE 50 ML PO (08:51)
--- NOTE | 2025-01-24 08:55 | W.PN.HOSP.TC ---
Today's Communication/Plan
-
CT scan of the abdomen pelvis with oral contrast as per general surgery
Assessment / Plan
Assessment / Plan
A/P: Patient is a 59y F with complicated PMH who presents to ED complaining of abdominal pain.
Abdominal Pain
- Mild elevation in lipase - but location of pain, lack of N/V not consistent with pancreatitis.
- CT scan done in the ED with chronic findings but no acute abnormalities to explain current presentation
- Patient continues to have abdominal pain, 8 out of 10 in intensity
- Appreciate GI input, suspect secondary to obstipation vs stoma being too small
- GI recommends avoidance of raw fruits/vegetables, and favor liquids and softer foods
- Appreciate general surgery input, n.p.o., check CT abdomen and pelvis with oral contrast
- Minimize opioids in light of recent SBO
- GI ordered SBFT - which cannot be done until Mon
Recent SBO
- Ostomy now with significant stool output - doubt recurrence.
- CT does not show recurrent SBO / transition point / etc.
- Routine ostomy care / monitor outputs.
ASCVD
- Significant history of CVA, PAD, etc.
- Continue usual CV med regimen.
CKD III
- Stable. Renal function is at / near known baseline.
- RHETT during recent admission is improved.
Chronic Aspiration / Dysphagia
- Cleared for IDDSI 6 diet with thin liquids and aspiration precautions.
- Advance diet to IDDSI 6 as tolerated.
Hypothyroidism
- Continue T4 supplementation.
Chronic Pain / Fibromyalgia
- Continue usual pain regimen.
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
Peripheral Neuropathy secondary to chemotherapy
Dysarthria s/p Partial Glossectomy
Diet-Controlled DM-II
- From NH
DVT Prophylaxis: SQ lovenox
Code Status: DNR
Total time spent to see the patient on the floor, examine the patient, review data and lab results, discuss treatment plan with patient, nursing staff around 39 minutes.
Physical Exam
General: Obese, no acute distress
HEENT: Normocephalic, Atraumatic, EOMI, MMM
Respiratory: Clear to Auscultation bilaterally
Cardiac: Normal S1/S2, Regular Rate and Rhythm
GI: Soft, tender at RLQ, Nondistended, Normal Bowel Sounds, +ostomy
Extremities: No Clubbing, Cyanosis, or Edema
Neuro: R sided weakness noted, mild dysarthria
Psych: Calm, Cooperative
Anticipated Discharge: 24 - 48 hours
Subjective/Interval History
-
Date of Service: January 24, 2025
Patient reports continued abdominal pain, 8 out of 10 in intensity. No nausea, no vomiting. No fever.
Objective Data
-
Vital Signs:
Vital Signs
Temp Pulse Resp BP Pulse Ox
98.2 F 55 18 124/59 96
01/24/25 07:00 01/24/25 07:00 01/24/25 07:00 01/24/25 07:00 01/24/25 07:00
I&O
01/23/25 01/24/25 01/25/25
06:59 06:59 06:59
Intake Total 1200 / 1200 720 / 720
Output Total
Balance 1175 / 1175 720 / 720
--- NOTE | 2025-01-24 09:17 | CON.GS ---
Addendum entered and electronically signed by Ajay Jones MD 01/25/25 07:45:
No acute surgical intervention. We will sign off for now, please call with any questions or concerns.
Addendum entered and electronically signed by Ajay Jones MD 01/24/25 14:07:
I saw and examined the patient independently.
The Interactive Media Director's note was reviewed and I agree with the note, assessment and plan except where noted below.
Comment: This is a 59-year-old female with complex medical surgical history with multiple partial small bowel obstructions here with concern for similar and right periumbilical pain and noted to have a palpable irreducible mass so a stat CT scan
with p.o. contrast was obtained which demonstrated no significant intra-abdominal defect and no hernia containing bowel on my read. Her ostomy is still working though quite retracted.
Lidocaine patches for the periumbilical pain ?Scar tissue
Okay for clears, advance diet as tolerated.
General surgery will follow
Original Note:
Consultation
-
Date/Time Consultation Performed: 01/24/25 0815
Medical History
-
Chief Complaint: ABD pain
History of Present Illness:
Ms Garsia is a 59 yo female with a h/o CAD, PAD with multiple digit amputations, CVA (on DAPT) with right hemiparesis, parotid mass tx surgically with PEG placed, Cervical ca tx with DANIEL, chemo, XRT, Radiation colitis with bowel perforation s/p
completion colectomy with end ileostomy complicated by parastomal hernia s/p re-siting of end ileostomy to left abdomen, and open ventral incisional hernia repair with unilateral [id number] by Dr Adkins. She has had several SBO's over the past 12
months requiring admission with most recent admission earlier this month. She represented through the ED with increased abdominal pain. She has noted stool outputs from her stoma of stool/flatus but denies nausea and vomiting. She has been
tolerating a full liquid diet. On exam, stoma is retracted but patent, pink, viable and functioning. There is a focal area of tenderness near the umbilicus with palpable firmness below the skin. No overlying skin changes.
Past Medical History
Past Medical History: CAD (and PAD), Cancer (cervical tx surgery/chemo/xrt), COPD, CVA (right hemiparesis), HTN, Hypercholesterolemia, Hypothyroidism, Psychiatric (depression/anxiety), Renal Failure (CKD 3) and Other (RA, RACHEL, CPAP, Radiation
colitis with perforation s/p ostomy, parotid mass tx surgically, dysarthria, peripheral neuropathy d/t chemo, recurrent SBO, nephrolithiasis, obesity)
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
with unilateral TAR [address] Adkins), Orthopedic (multiple digit amputations (PAD)), Urological (ureteroscopy for stone removal) and Other (G-tube Placement Hemiglossectomy & parotidectomy)
Social History
Tobacco: Former Smoker
Alcohol: None
Living: [facility]
Family History
Family History: Reviewed & Not Pertinent
Allergies / Home Medications
Allergy/AdvReac Type Severity Reaction Status Date / Time
adhesive Allergy TAPE-rash Verified 01/20/25 22:16
and itching
infliximab [From Remicade] Allergy Anaphylaxis Verified 01/20/25 22:16
latex Allergy Rash, Verified 01/20/25 22:16
itching,
Hives
Penicillins Allergy Unknown, Verified 01/20/25 22:16
tolerated
amoxicillin
and
ampicillin
in the past
Sulfa (Sulfonamide Allergy Hives, rash Verified 01/20/25 22:16
Antibiotics)
�Medication �Instructions �Recorded �Confirmed �Type
clopidogrel 75 mg tablet (Plavix) 75 mg PO DAILY Heart 06/25/23 01/20/25 History
Disease/Condition
acetaminophen 325 mg tablet 650 mg PO Q4HPRN PRN mild 01/22/24 01/20/25 History
pain/temp>100F
atorvastatin 40 mg tablet 40 mg PO HS High Cholesterol 01/22/24 01/20/25 History
cholecalciferol (vitamin D3) 25 25 mcg PO DAILY Supplement 01/22/24 01/20/25 History
mcg (1,000 unit) tablet (Vitamin
D3)
gabapentin 300 mg capsule 300 mg PO TID Neurological 01/22/24 01/20/25 History
Condition
loratadine 10 mg tablet 10 mg PO DAILY Allergies 01/22/24 01/20/25 History
melatonin 5 mg tablet 5 mg PO HS Sleep 01/22/24 01/20/25 History
sodium bicarbonate 650 mg tablet 650 mg PO Q8H Electrolyte Repletion 01/22/24 01/20/25 History
sodium phosphates 19 gram-7 118 ml [place] DAILYPRN PRN if dulcolax 01/22/24 01/20/25 History
gram/118 mL enema (Fleet Enema) is ineffective after 24hrs
aspirin 81 mg chewable tablet 81 mg PO DAILY Blood Clot 07/15/24 01/20/25 History
Prevention/Tx
bisacodyl 10 mg rectal suppository 10 mg AZ DAILYPRN PRN if no bm 07/15/24 01/20/25 History
(Dulcolax (bisacodyl)) aftr mom
diclofenac sodium 1 % topical gel 2 g topical TID left shoulder 07/15/24 01/20/25 History
famotidine 20 mg tablet 20 mg PO HS Gastrointestinal Issue 07/15/24 01/20/25 History
levothyroxine 75 mcg tablet 75 mcg PO DAILY Thyroid 07/15/24 01/20/25 History
(Synthroid)
pantoprazole 40 mg granules 40 mg PO DAILY Gastrointestinal 07/15/24 01/20/25 History
delayed-release for susp in packet Issue
venlafaxine 225 mg tablet,extended 225 mg PO DAILY Depression 07/15/24 01/20/25 History
release 24 hr
lisinopril 5 mg tablet 5 mg PO DAILY #30 tabs 01/17/25 01/20/25 Rx
nifedipine 30 mg tablet,extended 30 mg PO DAILY #30 tabs 01/17/25 01/20/25 Rx
release
buspirone 10 mg tablet 10 mg PO BID 01/20/25 01/20/25 History
clotrimazole 1 % topical cream 1 applic topical TID left upper arm 01/20/25 01/20/25 History
levothyroxine 100 mcg tablet 100 mcg PO DAILY 01/20/25 01/20/25 History
(Synthroid)
lorazepam 0.5 mg tablet (Ativan) 0.25 mg PO BID 01/20/25 01/20/25 History
magnesium hydroxide 400 mg/5 mL 30 ml PO [id number] PRN no bm x3 days 01/20/25 01/20/25 History
oral suspension (Milk of Magnesia)
oxycodone 5 mg tablet 5 mg PO Q6HPRN PRN severe pain 01/20/25 01/20/25 History
Review of Systems
-
History Source: Patient
All other systems: Negative unless noted
A 10 point review of systems was completed, and was negative except as per HPI.
Physical Exam
Vital Signs
Temp Pulse Resp BP Pulse Ox
98.2 F 55 18 124/59 96
01/24/25 07:00 01/24/25 07:00 01/24/25 07:00 01/24/25 07:00 01/24/25 07:00
01/23/25 01/24/25 01/25/25
06:59 06:59 06:59
Actual Weight 94.971 kg 96.1 kg
Body Mass Index (BMI) 32.2
Lab Results
01/23/25 07:35
01/23/25 07:35
WBC 6.2 10^3/uL (4.8-10.8) 01/23/25 07:35
Hgb 9.7 g/dL (12.0-16.0) L 01/23/25 07:35
Hct 29.4 % (37.0-47.0) L 01/23/25 07:35
Plt Count 93 10^3/uL (130-400) L 01/23/25 07:35
Abs Immat Gran (auto) 0.1 10^3/uL (0-0.05) H 01/20/25 22:45
Neutrophils % 73.8 % (42.2-75.2) 01/20/25 22:45
Physical Exam
General: Well Developed and Well Nourished
HEENT: Moist Mucous Membranes
Respiratory: Non Labored Respirations
GI: Soft, Non Distended, Tender (near umbilicus where there is a small palpable lump under the skin ?hernia) and Other (stoma pink, retracted, functional with stool/flatus in appliance. G-tube present, clamped. )
Skin: Warm
Neuro: Awake, Alert and AO x 3
Data Reviewed
-
CT Scan: Image Personally Visualized and interpreted (from prior admission), Report Reviewed by me, Discussed with Nurse and Discussed with Patient
Labs: Labs Reviewed by me, Discussed with Physician and Discussed with Patient
Old Records: Reviewed
Assessment / Plan
-
59yo female with h/o CVA on DAPT, multiple prior abdominal surgeries recently admitted 01/12 to 01/17 for PSBO due to adhesions presents from SNF with ongoing abdominal pain. Stoma productive of stool/flatus. Tolerating liquids without n/v. Focal area
of pain near the umbilicus, ?hernia present. Stoma pink, somewhat retracted but functional and patent. AFVSS.
--NPO for now
--Check CT abd/pelvis with PO contrast. Unable to give IV contrast given CKD.
--Gtube clamped, if develops nausea can place to gravity drainage but will hold off for now
Further surgical recs pending CT findings
[2025-01-24] MEDS: LIDOCAINE 4% PATCH 1 PATCH TOPICAL (11:52)
--- NOTE | 2025-01-24 11:56 | W.PN.GI.CBS2 ---
Today's Communication / Plan
-
Repeat CTAP with oral contrast today without acute findings
Cx UGI SBFT
Diet pending formal surgery eval
Pain management
Assessment / Plan
-
59 year old female with a past medical history partial small bowel obstruction (last admission 01/11/25-01/17/25), ileus, pneumonia, CVA 08/2023 with residual right sided hemiparesis, status post PEG tube, hypertension, CKD 3, RA, COPD, hypothyroidism,
UTI, cervical cancer status post hysterectomy, chemoradiation, radiation colitis requiring colectomy with ileocolostomy done at [facility] in 2015, complicated by parastomal hernia status post re-sitting of end ileostomy to left abdomen open ventral
incisional hernia repair by Dr. Adkins (2021): CAD, diabetes, parotid mass with obstructive sleep apnea on CPAP, depression, anxiety, peripheral neuropathy, history of LA grade C esophagitis who is able to eat and drink without use of PEG tube for
greater than 9 months discharged to intermediate, who was just hospitalized from 01/11/2025 through 01/17/2025 for partial small bowel obstruction and coffee-ground emesis, who presents back to the hospital with recurrent abdominal discomfort just to
the right of her umbilicus. We are asked to evaluate for the same. CT does not show evidence of partial small bowel obstruction. Patient however feels as if this is the way she always presents prior to onset of partial small bowel obstruction
versus ileus. She states that she has no appetite. She has decrease in flatus in her bag however still has production of brown stool within her ostomy. She did have a mildly elevated lipase which came down within normal limits. No abnormal LFTs.
Pancreatic inflammation seen on imaging. Patient just started eating solid food again approximately 9 months ago. Upon further investigation of her eating habits she does admit to eating a large dinner salads at least 3 times a week. Consisting
of lettuce, cucumbers, red cabbage. She does not specifically consume other raw vegetables. Other vegetables she may eat may be cooked. She states that since discharge she has had at least 3 of these in the 3 days that she was out of the hospital
before next admission.
Impression:
Abdominal pain
--> No obstruction seen on CT, passing stool and flatus via ileostomy bag (brown in color)
Multiple abd surgeries
Fibromyalgia
Chronic opid use
Recent partial small bowel obstruction
Elevated lipase, now resolved -> LFTs within normal limits, pancreas with normal imaging
Anemia with prior coffee ground emesis 01/11/2025, however with brown stool in ileostomy. Hemoglobin stable.
Recommendations
- Repeat CTAP with oral contrast today without acute findings to explain pain
- She's had 8 CTAP done in the past year
- Ok for diet pending surgical recs
- C/w PPI and H2B
- Pain management
- Add miralax
Will follow with you
Subjective
Subjective
Date of Service: January 24, 2025
She continues to c/o diffuse abd pain. Lack of appetite and not wanting to eat. States ostomy with good output
Objective
Data Reviewed
Laboratory Data:
Laboratory Results
01/23/25 07:35
01/23/25 07:35
Laboratory Results
Phosphorus 4.1 mg/dl (2.5-4.5) 01/22/25 06:37
Magnesium 1.9 mg/dl (1.6-2.3) 01/22/25 06:37
Total Bilirubin 0.4 mg/dl (0.2-1.3) 01/20/25 22:45
AST 15 U/L (14-36) 01/20/25 22:45
ALT 10 U/L (0-35) 01/20/25 22:45
Alkaline Phosphatase 82 U/L (38-126) 01/20/25 22:45
Lipase 219 U/L (23-300) 01/22/25 06:37
Vital Signs and I&O:
Vital Signs
Temp Pulse Resp BP Pulse Ox
98.2 F 55 18 124/59 96
01/24/25 07:00 01/24/25 07:00 01/24/25 07:00 01/24/25 07:00 01/24/25 07:00
I&O
01/23/25 01/24/25 01/25/25
06:59 06:59 06:59
Intake Total 1200 / 1200 720 / 720
Output Total
Balance 1175 / 1175 720 / 720
Physical Exam
Physical Exam
GEN: No acute distress, conversant, pleasant obese
HEENT: anicteric, extraocular movements intact, clear oropharynx without exudates
GI: soft, obese , diffusely tender to palpation without guarding or rebound. PEG with green fluid, ostomy with yellow brown stool
EXT: warm, well perfused, trace edema bilaterally
NEURO: AAOx3, non-focal
[2025-01-24] MEDS: MIRALAX 17 GRAMS PO (13:38)
[2025-01-24 15:00] VITALS: BP 132/73
[2025-01-24] MEDS: LOVENOX 40 MG SC (18:01)
[2025-01-24] MEDS: MELATONIN 5 MG PO (21:30)
[2025-01-24] MEDS: PEPCID 20 MG PO (21:31)
[2025-01-24] MEDS: LIPITOR 40 MG PO (21:31)
[2025-01-24 23:04] VITALS: BP 121/65
[2025-01-25] MEDS: DILAUDID 0.5 MG IV ×3 (04:29→19:56)
[2025-01-25] MEDS: SYNTHROID 175 MCG PO (05:00)
[2025-01-25] MEDS: SODIUM BICARBONATE 650 MG PO ×2 (05:00→19:56)
[2025-01-25 06:00] VITALS: BMI 31.2
[2025-01-25 06:51] LABS: Blood Urea Nitrogen 26 mg/dl (7-17); Calcium 10.1 mg/dl (8.4-10.2); Carbon Dioxide 25 mmol/L (22-30); Chloride 105 mmol/L (98-107); Estimated Creatinine Clearance 31 ml/min; Glucose 87 mg/dl (70-99); Magnesium 1.9 mg/dl (1.6-2.3); Phosphorus 4.5 mg/dl (2.5-4.5); Potassium 4.4 mmol/L (3.5-5.1); Sodium 140 mmol/L (135-145); eGFR 23.89
[2025-01-25 06:52] LABS: Hematocrit 31.8 % (37.0-47.0); Hemoglobin 10.5 g/dL (12.0-16.0); Mean Corpuscular Hgb 30.5 pg (27.0-31.0); Mean Corpuscular Volume 92.4 fL (81.0-99.0); Mean Platelet Volume 9.5 fL (7.4-10.4); Platelet Count 92 10^3/uL (130-400); Red Blood Cell Count 3.44 10^6/uL (4.20-5.40); Red Cell Dist. Width 13.7 % (11.5-14.5); White Blood Cell Count 6.4 10^3/uL (4.8-10.8)
[2025-01-25 07:00] VITALS: BP 97/66
[2025-01-25] MEDS: NEURONTIN 300 MG PO ×3 (08:04→22:07)
[2025-01-25] MEDS: PROCARDIA XL (EXTENDED RELEASE) 30 MG PO (08:04)
[2025-01-25] MEDS: BUSPAR 10 MG PO ×2 (08:04→19:42)
[2025-01-25] MEDS: ATIVAN 0.25 MG PO ×2 (08:04→19:42)
[2025-01-25] MEDS: PLAVIX 75 MG PO (08:05)
[2025-01-25] MEDS: VITAMIN D3 (cholecalciferol) 25 MCG PO (08:05)
[2025-01-25] MEDS: ZESTRIL 5 MG PO (08:05)
[2025-01-25] MEDS: LOW STRENGTH ASPIRIN 81 MG PO (08:05)
[2025-01-25] MEDS: PROTONIX 40 MG PO (08:05)
[2025-01-25] MEDS: EFFEXOR XR 150 MG PO (08:05)
[2025-01-25] MEDS: EFFEXOR XR 75 MG PO (08:05)
[2025-01-25] MEDS: ROXICODONE 5 MG PO ×2 (08:05→15:35)
[2025-01-25] MEDS: MIRALAX 17 GRAMS PO (08:06)
[2025-01-25] MEDS: LOTRIMIN 1% CREAM 1 APPLIC TOPICAL ×2 (08:06→19:42)
[2025-01-25] MEDS: LIDOCAINE 4% PATCH 1 PATCH TOPICAL (08:06)
--- NOTE | 2025-01-25 08:08 | W.PN.HOSP.TC ---
Today's Communication/Plan
-
Hold Plavix
GI planning for EGD tomorrow
Assessment / Plan
Assessment / Plan
A/P: Patient is a 59y F with complicated PMH who presents to ED complaining of abdominal pain.
Abdominal Pain
- Mild elevation in lipase - but location of pain, lack of N/V not consistent with pancreatitis.
- CT scan done in the ED with chronic findings but no acute abnormalities to explain current presentation
- Patient continues to have abdominal pain, 8 out of 10 in intensity
- Appreciate GI input, unclear etiology, poss from obstipation versus fibromyalgia versus other
- GI recommends avoidance of raw fruits/vegetables, and favor liquids and softer foods
- Appreciate general surgery input, CT abdomen and pelvis with oral contrast neg for hernia, neg for obstruction
- GI plans for EGD tomorrow, hold plavix
- Continue full liquids for now, minimize opioids in light of recent SBO
Recent SBO
- Ostomy now with significant stool output - doubt recurrence.
- CT does not show recurrent SBO / transition point / etc.
ASCVD
- Significant history of CVA, PAD, etc.
- Continue usual CV med regimen.
RHETT on CKD III
- Hold lisinopril, gentle IVFs, trend Cr
Chronic Aspiration / Dysphagia
- Cleared for IDDSI 6 diet with thin liquids and aspiration precautions.
- Advance diet to IDDSI 6 as tolerated.
Hypothyroidism
- Continue T4 supplementation.
Chronic Pain / Fibromyalgia
- Continue usual pain regimen.
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
Peripheral Neuropathy secondary to chemotherapy
Dysarthria s/p Partial Glossectomy
Diet-Controlled DM-II
- From NH
DVT Prophylaxis: SQ lovenox
Code Status: DNR
Total time spent to see the patient on the floor, examine the patient, review data and lab results, discuss treatment plan with patient, nursing staff around 50 minutes.
Physical Exam
General: Obese, no acute distress
HEENT: Normocephalic, Atraumatic, EOMI, MMM
Respiratory: Clear to Auscultation bilaterally
Cardiac: Normal S1/S2, Regular Rate and Rhythm
GI: Soft, tender at RLQ, Nondistended, Normal Bowel Sounds, +ostomy
Extremities: No Clubbing, Cyanosis, or Edema
Neuro: R sided weakness noted, mild dysarthria
Psych: Calm, Cooperative
Anticipated Discharge: 24 - 48 hours
Subjective/Interval History
-
Date of Service: January 25, 2025
Patient continues to complain of severe abdominal pain, 8 out of 10 in intensity. No nausea, no vomiting. No chest pain, no shortness of breath.
Objective Data
-
Labs:
Laboratory Results
01/25/25
05:42
WBC 6.4
Hgb 10.5 L
Hct 31.8 L
Plt Count 92 L
Sodium 140
Potassium 4.4
Chloride 105
Carbon Dioxide 25
BUN 26 H
Creatinine 2.3 H
Glucose 87
Calcium 10.1
Vital Signs:
Vital Signs
Temp Pulse Resp BP Pulse Ox
97.5 F 63 20 97/66 98
01/25/25 07:00 01/25/25 07:00 01/25/25 07:00 01/25/25 07:00 01/25/25 07:00
I&O
01/24/25 01/25/25 01/26/25
06:59 06:59 06:59
Intake Total 720 / 720 420 / 420
Output Total 300 / 300
Balance 720 / 720 120 / 120
[2025-01-25 08:16] VITALS: BP 104/64
[2025-01-25] MEDS: SODIUM BICARBONATE PO (13:32)
--- NOTE | 2025-01-25 14:29 | W.PN.GI.CBS2 ---
Today's Communication / Plan
-
EGD tomorrow
Hold plavix
Assessment / Plan
-
59 year old female with a past medical history partial small bowel obstruction (last admission 01/11/25-01/17/25), ileus, pneumonia, CVA 08/2023 with residual right sided hemiparesis, status post PEG tube, hypertension, CKD 3, RA, COPD, hypothyroidism,
UTI, cervical cancer status post hysterectomy, chemoradiation, radiation colitis requiring colectomy with ileocolostomy done at [facility] in 2016, complicated by parastomal hernia status post re-sitting of end ileostomy to left abdomen open ventral
incisional hernia repair by Dr. Adkins (2021): CAD, diabetes, parotid mass with obstructive sleep apnea on CPAP, depression, anxiety, peripheral neuropathy, history of LA grade C esophagitis who is able to eat and drink without use of PEG tube for
greater than 9 months discharged to [facility], who was just hospitalized from 01/11/2025 through 01/17/2025 for partial small bowel obstruction and coffee-ground emesis, who presents back to the hospital with recurrent abdominal discomfort just to
the right of her umbilicus. We are asked to evaluate for the same. CT does not show evidence of partial small bowel obstruction. Patient however feels as if this is the way she always presents prior to onset of partial small bowel obstruction
versus ileus. She states that she has no appetite. She has decrease in flatus in her bag however still has production of brown stool within her ostomy. She did have a mildly elevated lipase which came down within normal limits. No abnormal LFTs.
Pancreatic inflammation seen on imaging. Patient just started eating solid food again approximately 9 months ago. Upon further investigation of her eating habits she does admit to eating a large dinner salads at least 3 times a week. Consisting
of lettuce, cucumbers, red cabbage. She does not specifically consume other raw vegetables. Other vegetables she may eat may be cooked. She states that since discharge she has had at least 3 of these in the 3 days that she was out of the hospital
before next admission.
Impression:
Abdominal pain
--> No obstruction seen on CT, passing stool and flatus via ileostomy bag (brown in color)
Multiple abd surgeries
Fibromyalgia
Chronic opid use
Recent partial small bowel obstruction
Elevated lipase, now resolved -> LFTs within normal limits, pancreas with normal imaging
Anemia with prior coffee ground emesis 01/11/2025, however with brown stool in ileostomy. Hemoglobin stable.
Recommendations
- Repeat CTAP with oral contrast 01/24 without acute findings to explain pain
- She's had 8 CTAP done in the past year
- C/w FLD
- NPO at [place] for EGD tomorrow
- C/w PPI and H2B
- Pain management
- C/w miralax
- Appreciate surgical recs
Will follow with you
Subjective
Subjective
Date of Service: January 25, 2025
She continues to report significant abd pain. Does not want to eat. Reports normal volume output through ostomy
Objective
Data Reviewed
Laboratory Data:
Laboratory Results
01/25/25 05:42
01/25/25 05:42
Laboratory Results
Phosphorus 4.5 mg/dl (2.5-4.5) 01/25/25 05:42
Magnesium 1.9 mg/dl (1.6-2.3) 01/25/25 05:42
Total Bilirubin 0.4 mg/dl (0.2-1.3) 01/20/25 22:45
AST 15 U/L (14-36) 01/20/25 22:45
ALT 10 U/L (0-35) 01/20/25 22:45
Alkaline Phosphatase 82 U/L (38-126) 01/20/25 22:45
Lipase 219 U/L (23-300) 01/22/25 06:37
Vital Signs and I&O:
Vital Signs
Temp Pulse Resp BP Pulse Ox
97.5 F 60 20 104/64 98
01/25/25 07:00 01/25/25 08:16 01/25/25 07:00 01/25/25 08:16 01/25/25 07:00
I&O
01/24/25 01/25/25 01/26/25
06:59 06:59 06:59
Intake Total 720 / 720 420 / 420
Output Total 300 / 300
Balance 720 / 720 120 / 120
Physical Exam
Physical Exam
GEN: No acute distress, conversant speech slurred
HEENT: anicteric, extraocular movements intact, clear oropharynx without exudates
GI: soft, non-distended, diffusely tender to palpation, obese multiple scar tissue seen normal active bowel sounds,
EXT: warm, well perfused, 2+ edema bilaterally
NEURO: AAOx3 slurred speech hemiparesis
[2025-01-25 15:00] VITALS: BP 104/67
[2025-01-25] MEDS: NSS 1000 IV (16:20)
[2025-01-25] MEDS: LOVENOX 40 MG SC (17:47)
[2025-01-25] MEDS: PEPCID 20 MG PO (22:07)
[2025-01-25] MEDS: MELATONIN 5 MG PO (22:07)
[2025-01-25] MEDS: LIPITOR 40 MG PO (22:07)
[2025-01-25 23:20] VITALS: BP 104/55
[2025-01-26] VITALS (10 sets, daily range): BP systolic 92–130; BP diastolic 55–67; BMI 31.3
[2025-01-26] MEDS: ROXICODONE 5 MG PO ×3 (00:06→20:42)
[2025-01-26] MEDS: SODIUM BICARBONATE 650 MG PO ×3 (05:13→20:43)
[2025-01-26] MEDS: SYNTHROID 175 MCG PO (05:14)
[2025-01-26] MEDS: DILAUDID 0.5 MG IV ×3 (05:16→16:52)
[2025-01-26 06:46] LABS: Hematocrit 28.9 % (37.0-47.0); Hemoglobin 9.5 g/dL (12.0-16.0); Mean Corp Hgb Conc. 32.9 g/dL (33.0-37.0); Mean Corpuscular Hgb 30.8 pg (27.0-31.0); Mean Corpuscular Volume 93.8 fL (81.0-99.0); Mean Platelet Volume 9.2 fL (7.4-10.4); Platelet Count 102 10^3/uL (130-400); Red Blood Cell Count 3.08 10^6/uL (4.20-5.40); White Blood Cell Count 7.4 10^3/uL (4.8-10.8)
[2025-01-26 07:17] LABS: Blood Urea Nitrogen 31 mg/dl (7-17); Calcium 9.4 mg/dl (8.4-10.2); Carbon Dioxide 22 mmol/L (22-30); Chloride 104 mmol/L (98-107); Estimated Creatinine Clearance 22 ml/min; Glucose 77 mg/dl (70-99); Potassium 4.5 mmol/L (3.5-5.1); Sodium 139 mmol/L (135-145); eGFR 15.49
[2025-01-26] MEDS: EFFEXOR XR 75 MG PO (08:37)
[2025-01-26] MEDS: PROCARDIA XL (EXTENDED RELEASE) 30 MG PO (08:37)
[2025-01-26] MEDS: ATIVAN 0.25 MG PO ×2 (08:37→20:42)
[2025-01-26] MEDS: EFFEXOR XR 150 MG PO (08:38)
[2025-01-26] MEDS: LOTRIMIN 1% CREAM 1 APPLIC TOPICAL ×2 (08:38→20:43)
[2025-01-26] MEDS: VITAMIN D3 (cholecalciferol) 25 MCG PO (08:38)
[2025-01-26] MEDS: LIDOCAINE 4% PATCH 1 PATCH TOPICAL (08:38)
[2025-01-26] MEDS: BUSPAR 10 MG PO ×2 (08:38→20:42)
[2025-01-26] MEDS: NEURONTIN 300 MG PO ×3 (08:38→22:18)
[2025-01-26] MEDS: PROTONIX 40 MG PO (08:38)
[2025-01-26] MEDS: LOW STRENGTH ASPIRIN 81 MG PO (08:38)
[2025-01-26] MEDS: NSS 1000 IV ×2 (08:39→22:20)
[2025-01-26] MEDS: MIRALAX PO (09:06)
--- NOTE | 2025-01-26 12:41 | CM ---
air traffic control manager reviewed patient's chart and was admitted from [facility] where patient is a shelter resident, plan is for patient to return to [facility] when stable.
[facility]
Report [phone]
.
Plan; Patient to return to [facility] when stable.
[2025-01-26 13:17] LABS: Glucose - Point of Care 86 mg/dl (70-99)
--- NOTE | 2025-01-26 13:29 | W.PN.HOSP.TC ---
Today's Communication/Plan
-
IVF
BMP in AM
Assessment / Plan
Assessment / Plan
59yo F with PMHX of chronic abdominal pain 2/2 adhesions and multiple episodes of ileus and SBO, CVA with PAD s/p iliac graft, L hemiparesis, PEG tube, HTN, CKD stage 3, RA, COPD, hypothyroidism, Hx of cervical CA s/p hysterectomy and RT, radiation
colitis s/p colectomy and ileostomy, CAD, DM, parotid mass, RACHEL, depression, neuropathy, recurrent SBO came form facility with chronic abdominal pain. EGD showed no significant pathology. Patient noted to be non-compliant with soft food. Pain
etiology 2/2
A/P:
#chronic pain 2/2 adhesions complicated by fibromyalgia
CT abd without acute findings, GenSx evaluated
GI: s/p unremarkable EGD on 01/26/25
Regular diet and cotn pain meds
#RHETT on CKD stage 3
2/2 dehydration
IVF and encourage PO intake
follow Cr
#Chronic mild thrombocytopenia
follow CBC
since at least 2011
BM biopsy in 2013 unremarkable
#RA
#COPD not in exacerbation
#Hypothyroidism
#Hx of CVA
#PAD s/p femoral to femoral crossover graft
#HLD
#Neuropathy
#Anxiety d/o
cont home meds
#hypokalemia
replete
#essential HTN
start nifedipine
DVT ppx SCDs
DNR/DNI
I have spent at least 39min reviewing chart, test results, communication with consultants and providing direct patient care
Anticipated Discharge: Within 24 hours
Subjective/Interval History
-
Date of Service: January 26, 2025
Objective Data
-
Labs:
Laboratory Results
01/26/25
05:59
WBC 7.4
Hgb 9.5 L
Hct 28.9 L
Plt Count 102 L
Sodium 139
Potassium 4.5
Chloride 104
Carbon Dioxide 22
BUN 31 H
Creatinine 3.3 H
Glucose 77
Calcium 9.4
Vital Signs:
Vital Signs
Temp Pulse Resp BP Pulse Ox
97.3 F 71 13 94/63 100
01/26/25 13:07 01/26/25 13:15 01/26/25 13:15 01/26/25 13:15 01/26/25 13:15
I&O
01/25/25 01/26/25 01/27/25
06:59 06:59 06:59
Intake Total 420 / 420 480 / 480
Output Total 300 / 300 70 / 70
Balance 120 / 120 410 / 410
Review of Systems
-
History Source: Patient
All other systems: Reviewed and negative
Abdomen/GI: Reports Abdominal Pain
Physical Exam
-
General: No Apparent Distress
Respiratory: Clear to Auscultation
Cardiac: Regular Rhythm
GI: Soft, Nontender, Nondistended, Peg Tube and Ostomy
Musculoskeletal: No Clubbing, No Cyanosis and No Edema
Neuro: Awake, Alert, Oriented, AO x 3 and Slurred Speech (chronic)
Psych: Calm
[2025-01-26] MEDS: LOVENOX 40 MG SC (17:08)
[2025-01-26] MEDS: LIPITOR 40 MG PO (22:18)
[2025-01-26] MEDS: PEPCID 20 MG PO (22:18)
[2025-01-26] MEDS: MELATONIN 5 MG PO (22:18)
[2025-01-27] MEDS: SODIUM BICARBONATE 650 MG PO ×3 (05:55→19:25)
[2025-01-27] MEDS: SYNTHROID 175 MCG PO (05:55)
[2025-01-27 06:00] VITALS: BMI 32.0
[2025-01-27 07:45] VITALS: BP 163/75
[2025-01-27] MEDS: PROCARDIA XL (EXTENDED RELEASE) 30 MG PO (08:13)
[2025-01-27] MEDS: BUSPAR 10 MG PO ×2 (08:13→19:24)
[2025-01-27] MEDS: NEURONTIN 300 MG PO ×2 (08:18→19:25)
[2025-01-27] MEDS: PROTONIX 40 MG PO (08:18)
[2025-01-27] MEDS: EFFEXOR XR 150 MG PO (08:18)
[2025-01-27] MEDS: LOW STRENGTH ASPIRIN 81 MG PO (08:18)
[2025-01-27] MEDS: LIDOCAINE 4% PATCH 1 PATCH TOPICAL (08:19)
[2025-01-27] MEDS: TESSALON PERLES 100 MG PO (08:19)
[2025-01-27] MEDS: EFFEXOR XR 75 MG PO (08:19)
[2025-01-27] MEDS: VITAMIN D3 (cholecalciferol) 25 MCG PO (08:19)
[2025-01-27] MEDS: MIRALAX PO (08:25)
[2025-01-27 08:29] LABS: Blood Urea Nitrogen 27 mg/dl (7-17); Calcium 9.3 mg/dl (8.4-10.2); Carbon Dioxide 21 mmol/L (22-30); Chloride 110 mmol/L (98-107); Estimated Creatinine Clearance 25 ml/min; Glucose 82 mg/dl (70-99); Potassium 4.3 mmol/L (3.5-5.1); Sodium 142 mmol/L (135-145); eGFR 18.09
[2025-01-27] MEDS: ATIVAN 0.25 MG PO ×2 (08:55→19:25)
[2025-01-27] MEDS: LOTRIMIN 1% CREAM 1 APPLIC TOPICAL ×2 (08:55→20:09)
[2025-01-27] MEDS: NSS 1000 IV ×2 (10:08→19:24)
--- NOTE | 2025-01-27 10:46 | W.PN.HOSP.TC ---
Today's Communication/Plan
-
cont hydration
Assessment / Plan
Assessment / Plan
59yo F with PMHX of chronic abdominal pain 2/2 adhesions and multiple episodes of ileus and SBO, CVA with PAD s/p iliac graft, L hemiparesis, PEG tube, HTN, CKD stage 3, RA, COPD, hypothyroidism, Hx of cervical CA s/p hysterectomy and RT, radiation
colitis s/p colectomy and ileostomy, CAD, DM, parotid mass, RACHEL, depression, neuropathy, recurrent SBO came form facility with chronic abdominal pain. EGD showed no significant pathology. Patient noted to be non-compliant with soft food. Pain
etiology 2/2 adhesions
A/P:
#chronic pain 2/2 adhesions complicated by fibromyalgia
CT abd without acute findings, GenSx evaluated
GI: s/p unremarkable EGD on 01/26/25
Regular diet and cotn pain meds
#RHETT on CKD stage 3
2/2 dehydration
IVF and encourage PO intake
follow Cr
#Chronic mild thrombocytopenia
follow CBC
since at least 2011
BM biopsy in 2013 unremarkable
#RA
#COPD not in exacerbation
#Hypothyroidism
#Hx of CVA
#PAD s/p femoral to femoral crossover graft
#HLD
#Neuropathy
#Anxiety d/o
cont home meds
#hypokalemia
replete
#essential HTN
start nifedipine
DVT ppx SCDs
DNR/DNI
I have spent at least 39min reviewing chart, test results, communication with consultants and providing direct patient care
Anticipated Discharge: 24 - 48 hours
Subjective/Interval History
-
Date of Service: January 27, 2025
Objective Data
-
Labs:
Laboratory Results
01/27/25
07:31
Sodium 142
Potassium 4.3
Chloride 110 H
Carbon Dioxide 21 L
BUN 27 H
Creatinine 2.9 H
Glucose 82
Calcium 9.3
Vital Signs:
Vital Signs
Temp Pulse Resp BP Pulse Ox
98.1 F 44 18 163/75 94
01/27/25 07:45 01/27/25 08:13 01/27/25 07:45 01/27/25 08:13 01/27/25 08:00
I&O
01/26/25 01/27/25 01/28/25
06:59 06:59 06:59
Intake Total 480 / 480 240 / 240
Output Total 70 / 70 150 / 150
Balance 410 / 410 90 / 90
Review of Systems
-
History Source: Patient
All other systems: Reviewed and negative
Abdomen/GI: Reports Abdominal Pain
Physical Exam
-
General: No Apparent Distress
HEENT: Normocephalic
Respiratory: Clear to Auscultation
GI: Soft, Nondistended, Tender (lower abdomen), Peg Tube and Ostomy
Musculoskeletal: No Clubbing, No Cyanosis and No Edema
Neuro: Awake, Alert, Oriented, AO x 3 and Slurred Speech
Psych: Calm
--- NOTE | 2025-01-27 13:13 | CM ---
Patient to return to [facility] when stable.
Plan; [facility] when stable
[facility]
Report [phone]
.
[2025-01-27] MEDS: ROXICODONE 5 MG PO ×2 (14:06→20:10)
[2025-01-27 14:50] VITALS: BP 144/66
[2025-01-27] MEDS: HEPARIN 5000 UNITS SC ×2 (15:33→23:55)
[2025-01-27] MEDS: LIPITOR 40 MG PO (20:08)
[2025-01-27] MEDS: MELATONIN 5 MG PO (20:08)
[2025-01-27 23:26] VITALS: BP 135/61
[2025-01-28] MEDS: SYNTHROID 175 MCG PO (04:06)
[2025-01-28] MEDS: NSS 1000 IV ×2 (04:06→12:15)
[2025-01-28] MEDS: SODIUM BICARBONATE 650 MG PO ×2 (04:06→12:15)
[2025-01-28] MEDS: ROXICODONE 5 MG PO ×2 (04:24→12:19)
[2025-01-28 05:23] VITALS: BMI 32.1
[2025-01-28 07:00] VITALS: BP 152/80
[2025-01-28] MEDS: ATIVAN 0.25 MG PO (08:31)
[2025-01-28] MEDS: EFFEXOR XR 75 MG PO (08:32)
[2025-01-28] MEDS: VITAMIN D3 (cholecalciferol) 25 MCG PO (08:32)
[2025-01-28] MEDS: EFFEXOR XR 150 MG PO (08:32)
[2025-01-28] MEDS: BUSPAR 10 MG PO (08:32)
[2025-01-28] MEDS: NEURONTIN 300 MG PO (08:33)
[2025-01-28] MEDS: PROCARDIA XL (EXTENDED RELEASE) 30 MG PO (08:33)
[2025-01-28] MEDS: HEPARIN 5000 UNITS SC (08:33)
[2025-01-28] MEDS: LOW STRENGTH ASPIRIN 81 MG PO (08:33)
[2025-01-28] MEDS: PROTONIX 40 MG PO (08:33)
[2025-01-28] MEDS: LOTRIMIN 1% CREAM 1 APPLIC TOPICAL (08:35)
[2025-01-28] MEDS: LIDOCAINE 4% PATCH 1 PATCH TOPICAL (08:36)
[2025-01-28] MEDS: MIRALAX PO (08:36)
[2025-01-28 10:03] LABS: Blood Urea Nitrogen 20 mg/dl (7-17); Calcium 9.7 mg/dl (8.4-10.2); Carbon Dioxide 22 mmol/L (22-30); Chloride 111 mmol/L (98-107); Estimated Creatinine Clearance 35 ml/min; Glucose 79 mg/dl (70-99); Sodium 143 mmol/L (135-145); eGFR 26.64
--- NOTE | 2025-01-28 11:00 | W.PN.HOSP.TC ---
Today's Communication/Plan
-
dc
Assessment / Plan
Assessment / Plan
59yo F with PMHX of chronic abdominal pain 2/2 adhesions and multiple episodes of ileus and SBO, CVA with PAD s/p iliac graft, L hemiparesis, PEG tube, HTN, CKD stage 3, RA, COPD, hypothyroidism, Hx of cervical CA s/p hysterectomy and RT, radiation
colitis s/p colectomy and ileostomy, CAD, DM, parotid mass, RACHEL, depression, neuropathy, recurrent SBO came form facility with chronic abdominal pain. EGD showed no significant pathology. Patient noted to be non-compliant with soft food. Pain
etiology 2/2 adhesions. RHETT resolved, patient encouraged for oral intake, she verbalized understanding. Medically stable for d/c
A/P:
#chronic pain 2/2 adhesions complicated by fibromyalgia
CT abd without acute findings, GenSx evaluated
GI: s/p unremarkable EGD on 01/26/25
Regular diet and cotn pain meds
#RHETT on CKD stage 3
2/2 dehydration
IVF and encourage PO intake
follow Cr
#Chronic mild thrombocytopenia
follow CBC
since at least 2011
BM biopsy in 2013 unremarkable
#RA
#COPD not in exacerbation
#Hypothyroidism
#Hx of CVA
#PAD s/p femoral to femoral crossover graft
#HLD
#Neuropathy
#Anxiety d/o
cont home meds
#hypokalemia
replete
#essential HTN
start nifedipine
DVT ppx SCDs
DNR/DNI
I have spent at least 39min reviewing chart, test results, communication with consultants and providing direct patient care
Anticipated Discharge: Today
Subjective/Interval History
-
Date of Service: January 28, 2025
Objective Data
-
Labs:
Laboratory Results
01/28/25
08:02
Sodium 143
Potassium 4.0
Chloride 111 H
Carbon Dioxide 22
BUN 20 H
Creatinine 2.1 H
Glucose 79
Calcium 9.7
Vital Signs:
Vital Signs
Temp Pulse Resp BP Pulse Ox
97.4 F 60 20 152/80 100
01/28/25 07:00 01/28/25 08:33 01/28/25 07:00 01/28/25 08:33 01/28/25 07:00
I&O
01/27/25 01/28/25 01/29/25
06:59 06:59 06:59
Intake Total 240 / 240 2560 / 2560
Output Total 150 / 150
Balance 90 / 90 2560 / 2560
Review of Systems
-
History Source: Patient
All other systems: Reviewed and negative
Abdomen/GI: Reports Abdominal Pain
Physical Exam
-
General: Comfortable
HEENT: Normocephalic
Cardiac: Regular Rhythm
GI: Soft, Nondistended, Peg Tube and Ostomy
Genito-urinary: No Costovertebral Tender
Musculoskeletal: No Clubbing, No Cyanosis and No Edema
Neuro: Awake, Alert, Oriented and Slurred Speech (chronic)
Psych: Calm
--- NOTE | 2025-01-28 11:09 | W.DCSUMMARY ---
Discharge Summary
Discharge Data
Date of Admission: 01/26/25
Date of Discharge: 01/28/25
-
Pending Results: No
Hospital Course
59yo F with PMHX of chronic abdominal pain 2/2 adhesions and multiple episodes of ileus and SBO, CVA with PAD s/p iliac graft, L hemiparesis, PEG tube, HTN, CKD stage 3, RA, COPD, hypothyroidism, Hx of cervical CA s/p hysterectomy and RT, radiation
colitis s/p colectomy and ileostomy, CAD, DM, parotid mass, RACHEL, depression, neuropathy, recurrent SBO came form facility with chronic abdominal pain. EGD showed no significant pathology. Patient noted to be non-compliant with soft food. Pain
etiology 2/2 adhesions. RHETT resolved, patient encouraged for oral intake, she verbalized understanding. Referral to nephrology provided and lisinopril stopped with increase of dose of nifedipine due to RHETT while admitted. repeat BMP in 1 week.
Medically stable for d/c
I have spent at least 39min reviewing chart, test results, communication with consultants and providing direct patient care
Patient was managed for:
#chronic pain 2/2 adhesions complicated by fibromyalgia
#RHETT on CKD stage 3
#Chronic mild thrombocytopenia
#RA
#COPD not in exacerbation
#Hypothyroidism
#Hx of CVA
#PAD s/p femoral to femoral crossover graft
#HLD
#Neuropathy
#Anxiety d/o
#hypokalemia
#essential HTN
Discharge Plan
-
Patient Disposition: [facility]/SNF
Discharge Diagnosis/Procedures: abdominal pain
Diet: Low Fiber
Additional Diets: soft and moist
Activity: As tolerated
Blood Work: BMP in 1 week
Referrals:
Ady Gambino DO [Active] - in two to four weeks (for CKD)
Michael Vargas MD [Family Provider] -
Prescriptions:
New
nifedipine 60 mg tablet extended release
60 mg PO DAILY Qty: 30 0RF
Continued
clopidogrel [Plavix] 75 mg Tablet
75 mg PO DAILY
atorvastatin 40 mg tablet
40 mg PO HS
acetaminophen 325 mg Tablet
650 mg PO Q4HPRN PRN (Reason: mild pain/temp>100F)
sodium bicarbonate 650 mg Tablet
650 mg PO Q8H
Fleet Enema 19-7 gram/118 mL Enema
118 ml NC DAILYPRN PRN (Reason: if dulcolax is ineffective after 24hrs)
Rx Instructions:
prn
gabapentin 300 mg capsule
300 mg PO TID
loratadine 10 mg Tablet
10 mg PO DAILY
cholecalciferol (vitamin D3) [Vitamin D3] 25 mcg (1,000 unit) Tablet
25 mcg PO DAILY
melatonin 5 mg Tablet
5 mg PO HS
levothyroxine [Synthroid] 75 mcg Tablet
75 mcg PO DAILY
bisacodyl [Dulcolax (bisacodyl)] 10 mg Suppository
10 mg NC DAILYPRN PRN (Reason: if no bm aftr mom)
Rx Instructions:
prn
aspirin 81 mg Tablet,Chewable
81 mg PO DAILY
diclofenac sodium 1 % Gel
2 g TOPICAL TID
venlafaxine 225 mg Tablet Extended Release 24hr
225 mg PO DAILY
famotidine 20 mg tablet
20 mg PO HS
pantoprazole [address] for susp in packet
40 mg PO DAILY
levothyroxine [Synthroid] 100 mcg Tablet
100 mcg PO DAILY
lorazepam [Ativan] 0.5 mg Tablet
0.25 mg PO BID
magnesium hydroxide [Milk of Magnesia] 400 mg/5 mL Suspension
30 ml PO [id number] PRN (Reason: no bm x3 days)
buspirone 10 mg Tablet
10 mg PO BID
clotrimazole 1 % Cream
1 applic TOPICAL TID
Patient Comments:
01/20/25: to take from 01/05/25-01/22/25
oxycodone 5 mg tablet
5 mg PO Q6HPRN PRN (Reason: severe pain)
Discontinued
nifedipine 30 mg Tablet Extended Release
30 mg PO DAILY Qty: 30 0RF
lisinopril 5 mg Tablet
5 mg PO DAILY Qty: 30 0RF
Discharge Orders:
Discharge Patient (As Directed); Ordered 01/28/25
Ordered By: Michele Haley
Discharge Date and Time
Print Language: GREENLANDIC
--- NOTE | 2025-01-28 11:26 | CM ---
manager casino reviewed patient's chart and met with patient and plan is for patient to return to [facility] today, ambulance transport.
Plan; Patient to transfer to [facility] today
[facility]
Report [phone]
.
[2025-01-28 15:00] VITALS: BP 137/67
== END 2025-01-28 16:31 | DRG 394 ==
LOC: 4 WEST ACU 07:38
PROVIDERS: Family Medicine; Internal Medicine Gastroenterology; Registered Nurse; ADMITTING PHYSICIAN Hospitalist; ATTENDING PHYSICIAN Internal Medicine; CONSULT PHYSICIAN Surgery; EMERGENCY PHYSICIAN Student in an Organized Health Care Education/Training Program; FAMILY PHYSICIAN Internal Medicine; OTHER PHYSICIAN Specialist
PROC: 0DJ08ZZ Inspection of Upper Intestinal Tract, Via Natural or Artificial Opening Endoscopic (ICD-10-PCS; 2025-01-26)
DX: K66.0 Peritoneal adhesions (postprocedural) (postinfection) (principal); F11.20 Opioid dependence, uncomplicated; N17.9 Acute kidney failure, unspecified; I69.351 Hemiplegia and hemiparesis following cerebral infarction affecting right dominant side; K52.0 Gastroenteritis and colitis due to radiation; M79.7 Fibromyalgia; N18.32 Chronic kidney disease, stage 3b; I12.9 Hypertensive chronic kidney disease with stage 1 through stage 4 chronic kidney disease, or unspecified chronic kidney disease; D69.6 Thrombocytopenia, unspecified; M06.9 Rheumatoid arthritis, unspecified; J44.9 Chronic obstructive pulmonary disease, unspecified; E03.9 Hypothyroidism, unspecified; F41.9 Anxiety disorder, unspecified; E87.6 Hypokalemia; Z79.890 Hormone replacement therapy; I25.10 Atherosclerotic heart disease of native coronary artery without angina pectoris; G47.33 Obstructive sleep apnea (adult) (pediatric); G62.0 Drug-induced polyneuropathy; T45.1X5A Adverse effect of antineoplastic and immunosuppressive drugs, initial encounter; G89.4 Chronic pain syndrome; Y84.2 Radiological procedure and radiotherapy as the cause of abnormal reaction of the patient, or of later complication, without mention of misadventure at the time of the procedure; Z92.3 Personal history of irradiation; Z85.41 Personal history of malignant neoplasm of cervix uteri; Z87.442 Personal history of urinary calculi; Z88.0 Allergy status to penicillin; Z88.2 Allergy status to sulfonamides; E78.00 Pure hypercholesterolemia, unspecified; Z93.1 Gastrostomy status; Z90.49 Acquired absence of other specified parts of digestive tract; F17.210 Nicotine dependence, cigarettes, uncomplicated; Z91.040 Latex allergy status; Z79.02 Long term (current) use of antithrombotics/antiplatelets; Z79.899 Other long term (current) drug therapy; Z79.82 Long term (current) use of aspirin; F32.A Depression, unspecified; M47.816 Spondylosis without myelopathy or radiculopathy, lumbar region; E11.42 Type 2 diabetes mellitus with diabetic polyneuropathy; Z66 Do not resuscitate; E11.22 Type 2 diabetes mellitus with diabetic chronic kidney disease; E66.9 Obesity, unspecified; Z68.32 Body mass index [BMI] 32.0-32.9, adult; F43.10 Post-traumatic stress disorder, unspecified; Z90.710 Acquired absence of both cervix and uterus; Z93.2 Ileostomy status; Z95.5 Presence of coronary angioplasty implant and graft
CPT/HCPCS: 74176; 80048; 80053; 81003; 81015; 82962; 83605; 83690; 83735; 84100; 85025; 85027; 87070; 87086; 99406

== ENCOUNTER 2025-02-06 15:10 | Inpatient (IN) | payer MEDICARE, OTHER, SELFPAY ==
[2025-02-06 10:04] VITALS: BMI 34.4
[2025-02-06 10:06] VITALS: BP 104/63
--- NOTE | 2025-02-06 10:19 | ED.GENMED ---
History of Present Illness
General
Chief Complaint: Fall
Source: patient
Exam Limitations: none
Time Seen by Provider: 02/06/25 10:13
History of Present Illness
History of Present Illness:
See MDM
Past History
Past History
ED Past Medical History: CAD, Cancer (Cervical cancer), CVA (X 2), Fibromyalgia, HTN, NIDDM, PA, Hypothyroidism, Psychiatric (Depression, PTSD) and Other (Rheumatoid arthritis, neuropathy, Colitis from radiation, Cellulitis, Sleep apnea uses CPAP,
Renal calculus, Parotid mass, LVH, GI bleeding, Anemia, PTSD); Negative Asthma or Hypercholesterolemia
ED Past Surgical History: Appendectomy, Bowel resection, Cardiac (Cardiac stent), Gynecological (Cervical Cancer with radiaion and Chemo, Hysterectomy), Orthopedic (Left ankle, left knee surgery X 2, Left wrist surgery, Right knee surgery, ),
Tonsilectomy (adnoids) and Other (Colostomy changed to Ileostomy, Ear tubes, Right parotidectomy, Left great toe and second Toe amputation)
Social History
Tobacco: Smoker (1ppd)
Alcohol: None
Drug: None
Personal:
Living: residential
Employment: Not employed
Family History
Family History: Early CAD (in patient's father)
Phy Exam
Physical Exam
Physical Exam:
See MDM
Course
Orders/Labs/Results
Orders:
Orders
02/06/25 10:16
HYDROmorphone [Dilaudid] 1 mg IV NOW STA
Femur, Right 2 View [CR Femur - Right Min 2 Vw] Urgent
Comment:
Reason For Exam: Fall, R distal thigh pain
Hip, Right 2-3 Views [CR Hip - RT w/wo Pel 2-3 Vw*] Urgent
Comment:
Reason For Exam: R thigh pain after fall
Include a pelvis x-ray?: No
02/06/25 10:17
Electrocardiogram (*1) Urgent
Reason for Study: PreOp
EKG- Treatment ONCE
02/06/25 10:20
Type+Screen Urgent
Complete Blood Count/With Diff Urgent
Comprehensive Metabolic Panel Urgent
PTT Urgent
Prothrombin Time Urgent
02/06/25 13:47
HYDROmorphone [Dilaudid] 1 mg IV NOW STA
02/06/25 13:50
Consult Orthopedic [ORTHOPEDIC CONSULT] Routine
Consulting Provider: Anish Foley
Was physician already notified: Yes
Abnormal Lab Results
02/06/25
10:20
RBC 2.67 L 10^6/uL
(4.20-5.40)
Hgb 8.2 L g/dL
(12.0-16.0)
Hct 25.2 L %
(37.0-47.0)
MCHC 32.5 L g/dL
(33.0-37.0)
Plt Count 101 L 10^3/uL
(130-400)
Absolute Lymphs (auto) 1.0 L 10^3/uL
(1.2-3.4)
Absolute Monos (auto) 0.8 H 10^3/uL
(0.1-0.6)
Lymphocytes % 13.1 L %
(20.5-51.1)
Monocytes % 10.2 H %
(1.7-9.3)
Chloride 109 H mmol/L
(98-107)
Carbon Dioxide 20 L mmol/L
(22-30)
BUN 35 H mg/dl
(7-17)
Creatinine 2.0 H mg/dL
(0.6-1.0)
Glucose 121 H mg/dl
(70-99)
02/06/25 10:20
02/06/25 10:20
Vital Signs
Initial and Last Documented VS:
Initial Vital Signs
Temp Pulse Resp BP Pulse Ox
98.1 F 74 16 104/63 98
02/06/25 10:06 02/06/25 10:06 02/06/25 10:06 02/06/25 10:06 02/06/25 10:06
Last Documented Vital Signs
Temp Pulse Resp BP Pulse Ox
98.1 F 69 12 104/63 97
02/06/25 10:06 02/06/25 11:15 02/06/25 11:15 02/06/25 10:06 02/06/25 11:15
MDM/Problems Addressed
Differential Diagnosis Includes:
HPI and MDM Narrative:
59-year-old female presenting for evaluation of right thigh pain. Patient has a history of stroke with right hemiparesis. She was transitioning out of her wheelchair last night when she had the fall. Outpatient x-rays showed concern for distal
femur fracture. On exam, she does have swelling and tenderness to her distal right thigh. The extremity is otherwise neurovascularly intact. Decreased range of motion secondary to pain and prior stroke. Will provide pain medicine and confirm
fracture with x-ray
Physical exam
General: Mildly uncomfortable
HEENT: protecting airway
Neck: appears supple
CV: No evidence of cyanosis
Resp: No accessory muscle use
Abd: Non-distended
Extremities: Swelling and tenderness to distal right thigh. Pulses intact distally
Neuro: alert. Right hemiparesis
Psych: Normal affect
Skin: Intact
Problems Addressed including Acute and Chronic Conditions affecting care:
1. Right femur fracture
Acuity: acute
Prognosis: unstable
Details: Will provide pain medicine discussed case with orthopedics
Updates
X-ray consistent with femur fracture. Orthopedics made aware. Will admit
Differential Diagnosis (but not limited to): Femur fracture, contusion, hip fracture
Testing considered: CT head but denies head trauma
Drug therapy (if applicable): OTC meds, please see d/c instruction regarding Rx drugs
Amount and/or Complexity of Data Reviewed
Clinical info obtained from: Patient
External data reviewed: Recent admission for abdominal pain. Symptoms self resolved
Labs I independently reviewed (but not limited to): anemia not far from baseline
Radiology: X-ray independently reviewed: Femur fracture noted
Pulse Ox: not hypoxic
EKG independently reviewed: N/A
Air Conditioning Mechanic: N/A
Critical Care: N/A
Risk of Complication:
Social Determinants of health: Good social support
Discussed with other providers: Hospitalist, orthopedics
Escalation of Care includes Admit/Obs: given the femur fracture, will admit
Occasional wrong word or 'sound a like' substitutions may have occurred due to the inherent limitations of voice recognition software. Read the chart carefully and recognize, using context, where substitutions have occurred.
*Critical Care Note
Total Time (30-74mins, 75-104mins- exclusive of procedures): Not Applicable
ED Attending Note
-
Portions of this chart may have been created with voice recognition software.� Occasional wrong word or��sound alike� substitutions may have occurred due to the inherent limitations of voice recognition software.
Discharge Plan
Departure
Patient Disposition: Admit
Date of Disposition: 02/06/25
Time of Disposition: 13:51
Presentation/result/management discussed w/ accepting MD/DO: Hospitalist
Discharge Problem:
Femur fracture, right
Prescriptions:
No Action
clopidogrel [Plavix] 75 mg Tablet
75 mg PO DAILY
atorvastatin 40 mg tablet
40 mg PO HS
acetaminophen 325 mg Tablet
650 mg PO Q4HPRN PRN (Reason: mild pain/temp>100F)
sodium bicarbonate 650 mg Tablet
650 mg PO Q8H
Fleet Enema 19-7 gram/118 mL Enema
118 ml MD DAILYPRN PRN (Reason: if dulcolax is ineffective after 24hrs)
Rx Instructions:
prn
gabapentin 300 mg capsule
300 mg PO TID
loratadine 10 mg Tablet
10 mg PO DAILY
cholecalciferol (vitamin D3) [Vitamin D3] 25 mcg (1,000 unit) Tablet
25 mcg PO DAILY
melatonin 5 mg Tablet
5 mg PO HS
bisacodyl [Dulcolax (bisacodyl)] 10 mg Suppository
10 mg MD DAILYPRN PRN (Reason: if no bm aftr mom)
Rx Instructions:
prn
aspirin 81 mg Tablet,Chewable
81 mg PO DAILY
diclofenac sodium 1 % Gel
2 g TOPICAL TID
venlafaxine 225 mg Tablet Extended Release 24hr
225 mg PO DAILY
famotidine 20 mg tablet
20 mg PO HS
lorazepam [Ativan] 0.5 mg Tablet
0.25 mg PO BID
magnesium hydroxide [Milk of Magnesia] 400 mg/5 mL Suspension
30 ml PO [id number] PRN (Reason: no bm x3 days)
buspirone 10 mg Tablet
10 mg PO BID
oxycodone 5 mg tablet
5 mg PO Q6HPRN PRN (Reason: severe pain)
pantoprazole 40 mg tablet,delayed release (DR/EC)
40 mg PO DAILY
lisinopril 5 mg Tablet
5 mg PO DAILY
levothyroxine 112 mcg tablet
112 mcg PO DAILY
Referrals:
Michael Vargas MD [Family Provider] -
Interventions
Interventions:
*Risk Screen - Suicide Last Done: 02/06/25 10:06
*ED- Fall Risk Assessment Last Done: 02/06/25 10:06
ED-Musculoskeletal Assessment Last Done: 02/06/25 11:50
ED- Neurological Assessment Last Done: 02/06/25 11:50
ED-Skin Assessment Last Done: 02/06/25 11:50
Discharge Date and Time
Print Language: [email or web address]
[2025-02-06] MEDS: DILAUDID 1 MG IV ×2 (10:34→13:55)
[2025-02-06 10:37] LABS: % Basophils 0.4 % (0-2); % Eosinophils 4.1 % (0-6); % Immature Granulocytes 0.5 % (0-0.5); % Lymphocytes 13.1 % (20.5-51.1); % Monocytes 10.2 % (1.7-9.3); % Neutrophils 71.7 % (42.2-75.2); Absolute Eosinophils 0.3 10^3/uL (0-0.7); Absolute Monocytes 0.8 10^3/uL (0.1-0.6); Absolute Neutrophils 5.4 10^3/uL (1.4-6.5); Hematocrit 25.2 % (37.0-47.0); Hemoglobin 8.2 g/dL (12.0-16.0); Mean Corp Hgb Conc. 32.5 g/dL (33.0-37.0); Mean Corpuscular Hgb 30.7 pg (27.0-31.0); Mean Corpuscular Volume 94.4 fL (81.0-99.0); Mean Platelet Volume 9.4 fL (7.4-10.4); Nucleated Red Blood Cells % 0 %; Platelet Count 101 10^3/uL (130-400); Red Blood Cell Count 2.67 10^6/uL (4.20-5.40); Red Cell Dist. Width 13.8 % (11.5-14.5); White Blood Cell Count 7.5 10^3/uL (4.8-10.8)
[2025-02-06 10:40] LABS: INR 1.06; PT 14.1 Sec (11.4-14.6)
[2025-02-06 10:41] LABS: APTT 23.4 Sec (23.4-35.0)
[2025-02-06 10:45] LABS: ALT (SGPT) 12 U/L (0-35); AST (SGOT) 14 U/L (14-36); Alkaline Phosphatase 55 U/L (38-126); Blood Urea Nitrogen 35 mg/dl (7-17); Calcium 9.5 mg/dl (8.4-10.2); Carbon Dioxide 20 mmol/L (22-30); Chloride 109 mmol/L (98-107); Estimated Creatinine Clearance 38 ml/min; Glucose 121 mg/dl (70-99); Potassium 4.9 mmol/L (3.5-5.1); Sodium 140 mmol/L (135-145); Total Bilirubin 0.5 mg/dl (0.2-1.3); Total Protein 7.4 g/dl (6.3-8.2); eGFR 28.25
--- NOTE | 2025-02-06 13:55 | HPS.HSE ---
Family Physician
-
Family Physician: Michael Vargas
Chief Complaint
-
Fall
History of Present Illness
Patient is a 59 y/o female past medical history of ASCVD, right hemiparesis as late effect of stroke, CKD, and chronic pain syndrome who presents following a fall. Patient reports she was transferring out of her wheelchair last night when she fell.
X-Ray at the facility raised concern for distal femur fracture. X-Ray here in the emergency department confirmed distal femur fracture. Patient denies hitting her head during the event.
Medical History
Past Medical History
Past Medical History: Reports Other
Additional Past Medical History:
ASCVD (PAD, CVA, CAD)
DM II
CKD 3B
Rheumatoid Arthritis
COPD
RACHEL
Peripheral neuropathy due to chemotherapy
Chronic pain syndrome/chronic opioid dependence
Radiation colitis
Cervical cancer -treated with radiation and chemotherapy
Nephrolithiasis
Chronic thrombocytopenia
Fibromyalgia
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
Parotid Mass
Hypothyroidism
Past Surgical History: Reports Other
Additional Past Surgical History:
Bowel resection and colostomy due to colon perforation
Colostomy Revision x 4 and ultimate Ileostomy (2021)
G-tube Placement
Hemiglossectomy & parotidectomy
Multiple Digital Amputations
Social History
Alcohol: None
Drug: None
Family History
Family History: Not pertinent
Allergies / Home Medications
Allergies reflects when Allergies were last updated in [employer].
Home Medications with original date entered in [employer]
Allergy/Medication List:
Allergies
Allergy/AdvReac Type Severity Reaction Status Date / Time
adhesive Allergy TAPE-rash Verified 01/20/25 22:16
and itching
infliximab [From Remicade] Allergy Anaphylaxis Verified 01/20/25 22:16
latex Allergy Rash, Verified 01/20/25 22:16
itching,
Hives
Penicillins Allergy Unknown, Verified 01/20/25 22:16
tolerated
amoxicillin
and
ampicillin
in the past
Sulfa (Sulfonamide Allergy Hives, rash Verified 01/20/25 22:16
Antibiotics)
Home Medications
clopidogrel 75 mg tablet (Plavix) 75 mg PO DAILY Heart Disease/Condition 06/25/23
acetaminophen 325 mg tablet 650 mg PO Q4HPRN PRN mild pain/temp>100F 01/22/24
atorvastatin 40 mg tablet 40 mg PO HS High Cholesterol 01/22/24
cholecalciferol (vitamin D3) 25 mcg (1,000 unit) tablet (Vitamin D3) 25 mcg PO DAILY Supplement 01/22/24
gabapentin 300 mg capsule 300 mg PO TID Neurological Condition 01/22/24
loratadine 10 mg tablet 10 mg PO DAILY Allergies 01/22/24
melatonin 5 mg tablet 5 mg PO HS Sleep 01/22/24
sodium bicarbonate 650 mg tablet 650 mg PO Q8H Electrolyte Repletion 01/22/24
sodium phosphates 19 gram-7 gram/118 mL enema (Fleet Enema) 118 ml AK DAILYPRN PRN if dulcolax is ineffective after 24hrs 01/22/24
aspirin 81 mg chewable tablet 81 mg PO DAILY Blood Clot Prevention/Tx 07/15/24
bisacodyl 10 mg rectal suppository (Dulcolax (bisacodyl)) 10 mg AK DAILYPRN PRN if no bm aftr mom 07/15/24
diclofenac sodium 1 % topical gel 2 g topical TID left shoulder 07/15/24
famotidine 20 mg tablet 20 mg PO HS Gastrointestinal Issue 07/15/24
venlafaxine 225 mg tablet,extended release 24 hr 225 mg PO DAILY Depression 07/15/24
buspirone 10 mg tablet 10 mg PO BID Mental Health/Anxiety 01/20/25
lorazepam 0.5 mg tablet (Ativan) 0.25 mg PO BID Mental Health/Anxiety 01/20/25
magnesium hydroxide 400 mg/5 mL oral suspension (Milk of Magnesia) 30 ml PO [id number] PRN no bm x3 days 01/20/25
oxycodone 5 mg tablet 5 mg PO Q6HPRN PRN severe pain 01/20/25
levothyroxine 112 mcg tablet 112 mcg PO DAILY 02/06/25
lisinopril 5 mg tablet 5 mg PO DAILY 02/06/25
pantoprazole 40 mg tablet,delayed release 40 mg PO DAILY 02/06/25
Review of Systems
-
A 12 point ROS was completed and negative except as noted: Yes
Constitutional: Denies Fever
Respiratory: Denies Cough or Trouble Breathing
Cardiac: Denies Chest Pain or Palpitations
Abdomen/GI: Denies Abdominal Pain or Constipated
Physical Exam
Vital Signs
Vital Signs
Temp Pulse Resp BP Pulse Ox
98.1 F 69 12 104/63 97
02/06/25 10:06 02/06/25 11:15 02/06/25 11:15 02/06/25 10:06 02/06/25 11:15
Physical Exam
General: Comfortable and Conversant
HEENT: Anicteric and Moist mucous membranes
Respiratory: Clear and Non Labored Respirations
Cardiac: S1/S2, Regular Rhythm and Murmur
GI: Soft, Non Tender and Ostomy
Rectal: Deferred by Provider
Musculoskeletal: No Clubbing and No Cyanosis
Skin: Warm and Dry
Neuro: Awake, Alert, Oriented and Other (Chronic Right Hemiparesis)
Psych: Calm
Laboratory Results
-
02/06/25 10:20
02/06/25 10:20
Laboratory Results
PT 14.1 Sec (11.4-14.6) 02/06/25 10:20
INR 1.06 02/06/25 10:20
APTT 23.4 Sec (23.4-35.0) 02/06/25 10:20
Total Bilirubin 0.5 mg/dl (0.2-1.3) 02/06/25 10:20
AST 14 U/L (14-36) 02/06/25 10:20
ALT 12 U/L (0-35) 02/06/25 10:20
Alkaline Phosphatase 55 U/L (38-126) 02/06/25 10:20
Data Reviewed
-
Lab Data: Labs Reviewed by me
Impression/Plan
-
Distal Right Femur Fracture
-Consult Ortho
-Plan for OR following Plavix washout (Last Dose 02/06/2025)
-Continue Tylenol 1000mg TID
-Continue Oxycodone for moderate pain, and Dilaudid for severe pain
ASCVD (PAD, CVA, CAD)
-Plavix on hold for OR
-Continue aspirin
Diabetes Mellitus, Type II
-Patient is not on any diabetic medications
-Check HgbA1c
-Monitor sugars and continue
Essential Hypertension
-Hold lisinopril as BP running on the low side
Hyperlipidemia
-Continue atorvastatin
CKD Stage IIIB
-Creatinine at baseline
Chronic Metabolic Acidosis
-Continue sodium bicarbonate
Anxiety
-Continue lorazepam, buspirone and venlafaxine
Peripheral neuropathy due to chemotherapy
Chronic pain syndrome/chronic opioid dependence
-Continue gabapentin
-Continue oxycodone
Hypothyroidism
-Continue Levothyroxine
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
-Patient performs stand/pivot to wheelchair at baseline
Dysphagia
-Patient maintained on IDDSI 6 with Thin Liquids
Chronic Thrombocytopenia
-Monitor platelet count
Chronic Normocytic Anemia, likely anemia of chronic disease
-Check iron studies, vitamin b12 and folate
DVT proph: SCDs
Code Status: DNR /DNI
--- NOTE | 2025-02-06 14:12 | W.PN.UPDATE ---
Update Note
Progress Note Update
This note serves as an addendum to the H&P by plant nursery worker OWEN Toshia CHURCH
HPI
59F Res of [place], complex PMHX, WC bound, Rt sided hemiparesis, on DAPL, last dose Plavix 02/06 around 8 am s/p fall from WC last night. XR POS for fracture through the RIGHT femoral diaphysis,
PHX
CAD, Cancer (Cervical cancer), CVA (X 2), Fibromyalgia, HTN, NIDDM, DC, Hypothyroidism, Psychiatric (Depression, PTSD) and Other (Rheumatoid arthritis, neuropathy, Colitis from radiation, Cellulitis, Sleep apnea uses CPAP, Renal calculus, Parotid
mass, LVH, GI bleeding, Anemia, PTSD);
Selected VS
02/06/25
10:06
Temp 98.1 F
Pulse 74
Resp Rate 16
Blood pressure 104/63
SaO2 98
Oxygen Mode of Delivery Room air
PE
Gen: drowsy s/p IV Dilaudid 1 mg x1 at ER but apprprite
HEENT:slurred speech
Neck: supple
Lungs: CTA
Cor: RRR S1 S2
Abdomen: soft abdomen
SOFT SUGAR CUTTER: Rt sided hemiparesis with Lt fist flexion contracture
MS: atrophic skin , suspect microvasculopathy , Lt Toe 1 and toe 2 ampute , well healed scar
Psych: limited due to drowsiness
Labs
01/23/25 01/26/25 02/06/25
07:35 05:59 10:20
WBC 7.5
Hgb 9.7 L 9.5 L 8.2 L
MCV 94.4
Plt Count 102 L 101 L
Chloride 109 H
Carbon Dioxide 20 L
BUN 35 H
Creatinine 2.0 H
CR Femur - Right Min 2 Vw and CR Hip - RT w/wo Pel 2-3 Vw
- Acute, obliquely oriented fracture through the RIGHT femoral diaphysis, as above.
EKG report
NORMAL SINUS RHYTHM
LOW VOLTAGE QRS
BORDERLINE ECG
WHEN COMPARED WITH ECG OF 13-JAN-2025 15:03,
NO SIGNIFICANT CHANGE WAS FOUND
ASSESSMENT & PLAN
Benefits of ORIF out weight the risks
Medically acceptable to proceed for OR if Ortho is acceptable that last Plavix was taken less than 24 Hrs ago
- await Ortho input
Acute, obliquely oriented fracture through the RIGHT femoral diaphysis,
- Hold Plavix ; last dose Tuesday 02/06 around 8am
- c/w ASA
Mildly hypotensive
Benign HTN
- Hold Lisinopril
CKD 3b/4 HX with baseline Cr 2-3s, baseline eGFR 20-30
current Cr 2
- Hold Lisinopril for now
- Avoid NSAIDS
Chronic normocytic Anemic Hgb 8.2 with baseline Hgb 9s
Chr thrombocytopenia
- daily CBC
HX CVA with residual Rt side hemiparesis
Chr gait dysfunction
WC bound
Hypothyroid
- on LT4 112 mcg daily
last A1C 5.2 in 2023
HX DM listed but not on any Meds
- check A1 C
Depression/Anxiety
Insomnia
- Lorazem 0.25 mg BID
- on Venlafaxine 225 mg daily
- on Melatonin 5mg HS
DVT Px: SCD and ASA
DNR
IP MS
--- NOTE | 2025-02-06 14:42 | W.PN.UPDATE ---
Update Note
Progress Note Update
Full orthopedic consult dictated:
Dx: Right femoral shaft fracture
Plan: NPO after MN, Ancef outreach liaison to OR, type & screen for OR tomorrow right retrograde femoral rodding.
[2025-02-06 14:50] LABS: Iron 61 ug/dl (37-170)
[2025-02-06 14:59] LABS: Percent Saturation 24 % (20-50); Total Iron Binding Capacity 250 ug/dl (265-497)
[2025-02-06 15:29] LABS: Ferritin 65.4 ng/ml (11.1-264.0)
[2025-02-06 16:00] LABS: Vitamin B12 337 pg/ml (239-931)
[2025-02-06 17:15] VITALS: BP 135/72
--- NOTE | 2025-02-06 17:34 | PTCARENOTE ---
Addendum entered by Melinda Hercules RN 02/06/25 17:50:
First and second toe amputation noted to L foot.
Original Note:
Pt arrived to 2S via stretcher, slid to bed with assistance from [facility] staff. RLE edematous, palpable B/l DP pulses palpated. Pt observed to be scratching buttocks and scratches at different stages of healing noted to R upper thigh and B/L buttocks .
Bruise noted to L arm and L buttocks, Peg tube site C/D/I, peg remains capped. Ostomy clean and intact + for stool and flatus. Static air overlay placed on mattress, SCDs applied, Purewick in placed. Bed locked and in the lowest position, safety
maintained. Call oglesby in reach.
[2025-02-06] MEDS: DILAUDID 0.25 MG IV ×2 (17:41→20:45)
[2025-02-06 18:13] LABS: Glucose - Point of Care 109 mg/dl (70-99)
[2025-02-06] MEDS: NEURONTIN 300 MG PO ×2 (18:15→21:45)
[2025-02-06] MEDS: SODIUM BICARBONATE 650 MG PO (18:15)
[2025-02-06] MEDS: TYLENOL 1000 MG PO ×2 (18:15→21:45)
[2025-02-06] MEDS: ATIVAN 0.25 MG PO (19:35)
[2025-02-06] MEDS: BUSPAR 10 MG PO (19:36)
[2025-02-06] MEDS: LIPITOR 40 MG PO (21:45)
[2025-02-06] MEDS: PEPCID 20 MG PO (21:45)
[2025-02-06] MEDS: MELATONIN 5 MG PO (21:45)
[2025-02-06 23:15] VITALS: BP 109/59
[2025-02-06 23:27] LABS: Glucose - Point of Care 92 mg/dl (70-99)
[2025-02-07] VITALS (14 sets, daily range): BP systolic 84–122; BP diastolic 45–68; PULSE 78–90; O2SAT 97
[2025-02-07] MEDS: SODIUM BICARBONATE 650 MG PO ×3 (01:39→19:40)
[2025-02-07] MEDS: DILAUDID 0.25 MG IV ×2 (02:22→06:08)
[2025-02-07] MEDS: SYNTHROID 112 MCG PO (05:47)
[2025-02-07 05:56] LABS: Hematocrit 25.5 % (37.0-47.0); Hemoglobin 8.3 g/dL (12.0-16.0); Mean Corp Hgb Conc. 32.5 g/dL (33.0-37.0); Mean Corpuscular Hgb 30.7 pg (27.0-31.0); Mean Corpuscular Volume 94.4 fL (81.0-99.0); Mean Platelet Volume 9.4 fL (7.4-10.4); Platelet Count 83 10^3/uL (130-400); White Blood Cell Count 7.1 10^3/uL (4.8-10.8)
[2025-02-07 06:14] LABS: Blood Urea Nitrogen 40 mg/dl (7-17); Calcium 9.9 mg/dl (8.4-10.2); Carbon Dioxide 20 mmol/L (22-30); Chloride 112 mmol/L (98-107); Estimated Creatinine Clearance 35 ml/min; Glucose 96 mg/dl (70-99); Potassium 5.4 mmol/L (3.5-5.1); Sodium 141 mmol/L (135-145)
[2025-02-07] MEDS: NOVOLOG FLEXPEN-LOW RESISTANCE SC (06:38)
[2025-02-07 07:33] LABS: Glucose - Point of Care 100 mg/dl (70-99)
--- NOTE | 2025-02-07 07:34 | W.PN.UPDATE ---
Update Note
Progress Note Update
Patient resting comfortably in bed this morning. She does report pain in the right leg with any movement. Plan if for OR this morning for right retrograde femoral rodding under the direction of Dr. Foley. She is to remain NPO. Type and screen
completed. Her hemoglobin is 8.3 on AM labs. Ancef and 2 units prbc online activist to OR. Will continue to follow.
[2025-02-07 08:59] LABS: Glycohemoglobin (HgbA1c) 5.2 % (4.0-5.6)
--- NOTE | 2025-02-07 10:09 | W.IMMPOSTOP ---
Surgical Immed Post Op Note
-
Primary Surgeon: Anish Foley
Cook Apprentice: Karena Crespo PA-C
Pre-op Diagnosis: Right femur shaft fracture
Post-op Diagnosis: Same
Procedure Performed: Right femur retrograde nail fixation
Anesthesia Type: General
Specimen / Cultures: None
Estimated Blood Loss: 20cc
Complications: None
Operative Findings: Dictated [id number]
Plan:
WBAT RLE
Follow Hgb level
DVT proph per primary teatm
Follow up in the office in 2 weeks for staple removal and x-rays
[2025-02-07 10:20] LABS: Glucose - Point of Care 131 mg/dl (70-99)
--- NOTE | 2025-02-07 11:34 | PTCARENOTE ---
Patient returned from PACU post ORIF of right femoral shaft fracture.Patient is drowsy but arousable.She denies any pain.Neurovascular assessment is within normal limits and ongoing.The right hip dressing is intact without drainage.Vital signs are
stable.The patient is in her bed with the call oglesby in reach.
[2025-02-07 11:42] LABS: Glucose - Point of Care 165 mg/dl (70-99)
[2025-02-07] MEDS: ATIVAN PO (12:11)
--- NOTE | 2025-02-07 12:30 | W.PN.HOSP.TC ---
Today's Communication/Plan
-
Assessment / Plan
Assessment / Plan
NAD
Scleral Anicteric
MMM
No JVD
CTABL
RRR, S1/S2
Soft, NT, ND, BS+
Warm, Dry
Right lower extremity in Martin bandage from hip to toes
-Right foot distal toes noticed blueness slow cap refill though Doppler pulses
AA
Calm
Right femur shaft fracture s/p right femur retrograde nail fixation on with orthopedic
Leg no other Martin bandage
Incident spirometer
Ankle pumps
DVT prophylaxis and analgesics per orthopedic surgery
PT OT
History of PAD CVA CAD
On Plavix being held discussed with Ortho when to resume
Continue aspirin
Acute hyperkalemia 5.4
Initiate Lokelma
Monitor on telemetry
Repeat EKG to assess for changes
Repeat BMP at 3pm
CKD stage IIIb
Creat at baseline
Chronic Metabolic Acidosis secondary to chronic kidney disease
-Continue sodium bicarbonate
Anxiety
-Continue lorazepam, buspirone and venlafaxine
Peripheral neuropathy due to chemotherapy
Chronic pain syndrome/chronic opioid dependence
-Continue gabapentin
-Continue oxycodone
Hypothyroidism
-Continue Levothyroxine
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
-Patient performs stand/pivot to wheelchair at baseline
Dysphagia
-Patient maintained on IDDSI 6 with Thin Liquids
Chronic Thrombocytopenia
-Monitor platelet count
Chronic Normocytic Anemia, likely anemia of chronic disease
Anticipated Discharge: 24 - 48 hours
Subjective/Interval History
-
Date of Service: February 07, 2025
seen and examined. no new compalitns. no acute overnight events
Objective Data
-
Labs:
Laboratory Results
02/07/25
05:09
WBC 7.1
Hgb 8.3 L
Hct 25.5 L
Plt Count 83 L
Sodium 141
Potassium 5.4 H
Chloride 112 H
Carbon Dioxide 20 L
BUN 40 H
Creatinine 2.2 H
Glucose 96
Calcium 9.9
Vital Signs:
Vital Signs
Temp Pulse Resp BP Pulse Ox
97.1 F 78 17 93/64 94
02/07/25 11:05 02/07/25 10:31 02/07/25 10:31 02/07/25 10:31 02/07/25 11:20
I&O
02/06/25 02/07/25 02/08/25
06:59 06:59 06:59
Intake Total 360 / 360 150 / 150
Output Total 350 / 350
Balance 10 150 / 150
--- NOTE | 2025-02-07 13:11 | CM ---
Chart reviewed; met with pt
Initial assessment completed
Admitted with R femur fracture - had r femur Retrograde nail fixation today
LTR at [facility] - plan will be to return when medically stable
Updates sent in Care port
Plan - return to [facility] when medically stable
[2025-02-07] MEDS: LOKELMA 10 GRAM PO ×2 (13:12→17:32)
[2025-02-07] MEDS: BUSPAR 10 MG PO ×2 (13:29→19:40)
[2025-02-07] MEDS: PROTONIX 40 MG PO (13:30)
[2025-02-07] MEDS: TYLENOL 1000 MG PO ×2 (13:30→21:45)
[2025-02-07] MEDS: EFFEXOR XR 225 MG PO (13:30)
[2025-02-07] MEDS: NEURONTIN 300 MG PO ×2 (13:30→21:45)
[2025-02-07] MEDS: VITAMIN D3 (cholecalciferol) 25 MCG PO (13:31)
[2025-02-07] MEDS: LOW STRENGTH ASPIRIN 81 MG PO (13:31)
--- NOTE | 2025-02-07 14:03 | W.PN.UPDATE ---
Update Note
Progress Note Update
Called by Dr. Sebastian to evaluate the patient due to toes looking purple
On exam at 2pm, toes are well vascularized, pink.
Dressing with min to moderate drainage.
Compartment soft
Patient is comfortable on the bed
[2025-02-07] MEDS: NOVOLOG FLEXPEN-LOW RESISTANCE 1 UNITS SC ×2 (14:51→17:32)
[2025-02-07 15:10] LABS: Blood Urea Nitrogen 41 mg/dl (7-17); Calcium 9.5 mg/dl (8.4-10.2); Carbon Dioxide 19 mmol/L (22-30); Chloride 107 mmol/L (98-107); Estimated Creatinine Clearance 30 ml/min; Glucose 161 mg/dl (70-99); Potassium 5.4 mmol/L (3.5-5.1); Sodium 139 mmol/L (135-145); eGFR 21.61
[2025-02-07] MEDS: ANCEF 5 IV (15:47)
[2025-02-07] MEDS: FLUSH (NSS) 2 FLUSH IV (15:49)
[2025-02-07] MEDS: NEURONTIN PO (15:50)
[2025-02-07] MEDS: TYLENOL PO (15:50)
[2025-02-07] MEDS: ROXICODONE 5 MG PO ×2 (16:02→20:23)
--- NOTE | 2025-02-07 16:19 | W.PN.UPDATE ---
Update Note
Progress Note Update
Seen and examined. Known to vascular service. History of right to left femoral to femoral artery bypass with sartorius flaps.
Underwent right femur fracture repair today.
Concern for slight congestion/cyanotic appearance of toes.
Patient without any complaints of new pain.
Chronic right upper and lesser lower extremity paresis.
Exam/awake and alert. No acute distress. Breathing is unlabored. Abdomen soft. Palpable right femoral pulse, slightly weak. Difficult to palpate left. Feet are both warm. Dopplerable signals reasonable bilaterally. Capillary refill
reasonable. Distal toes right foot all 5 slight congestion type appearance. But capillary refill is reasonable.
Plan/no evidence of acute limb ischemia. However patient with chronic history of peripheral arterial disease. No recent lower extremity arterial noninvasive imaging. Will order.
[2025-02-07 17:17] LABS: Glucose - Point of Care 164 mg/dl (70-99)
[2025-02-07] MEDS: ATIVAN 0.25 MG PO (19:40)
[2025-02-07 21:15] LABS: Glucose - Point of Care 142 mg/dl (70-99)
[2025-02-07] MEDS: MELATONIN 5 MG PO (21:45)
[2025-02-07] MEDS: LIPITOR 40 MG PO (21:45)
[2025-02-07] MEDS: PEPCID 20 MG PO (21:45)
[2025-02-08] MEDS: ANCEF 5 IV (00:35)
[2025-02-08] MEDS: SODIUM BICARBONATE 650 MG PO ×3 (02:33→18:00)
[2025-02-08 03:10] VITALS: BP 98/57
[2025-02-08] MEDS: SYNTHROID 112 MCG PO (04:52)
[2025-02-08] MEDS: LOKELMA 10 GRAM PO ×3 (05:50→18:00)
[2025-02-08 06:27] LABS: Blood Urea Nitrogen 49 mg/dl (7-17); Carbon Dioxide 21 mmol/L (22-30); Chloride 106 mmol/L (98-107); Estimated Creatinine Clearance 24 ml/min; Glucose 115 mg/dl (70-99); Potassium 5.1 mmol/L (3.5-5.1); Sodium 139 mmol/L (135-145)
[2025-02-08] MEDS: ROXICODONE 5 MG PO ×4 (07:05→22:29)
[2025-02-08 07:25] VITALS: BP 93/55
[2025-02-08] MEDS: EFFEXOR XR 225 MG PO (08:17)
[2025-02-08] MEDS: NOVOLOG FLEXPEN-LOW RESISTANCE SC ×3 (08:17→17:54)
[2025-02-08 08:18] LABS: Glucose - Point of Care 119 mg/dl (70-99)
[2025-02-08] MEDS: PROTONIX 40 MG PO (08:18)
[2025-02-08] MEDS: TYLENOL 1000 MG PO ×3 (08:18→22:30)
[2025-02-08] MEDS: NEURONTIN 300 MG PO ×3 (08:18→22:29)
[2025-02-08] MEDS: BUSPAR 10 MG PO ×2 (08:18→19:56)
[2025-02-08] MEDS: VITAMIN D3 (cholecalciferol) 25 MCG PO (08:19)
[2025-02-08] MEDS: LOW STRENGTH ASPIRIN 81 MG PO (08:19)
[2025-02-08] MEDS: ATIVAN 0.25 MG PO ×2 (08:19→19:55)
[2025-02-08 11:05] VITALS: BP 94/52
--- NOTE | 2025-02-08 11:20 | W.PN.HOSP.TC ---
Today's Communication/Plan
-
follow renal function
start ivf gentle iv hydration
if renal function not improving then [facility] urine studies
follow up on vascular dopplers
pt/ot
Assessment / Plan
Assessment / Plan
NAD
Scleral Anicteric
MMM
No JVD
CTABL
RRR, S1/S2
Soft, NT, ND, BS+
Warm, Dry
Right lower extremity in Martin bandage from hip to toes
-B/l le warm, cap refill of the RLE improved, less cynotic distal toe tips
No groin hematoma nor cullens sign
AA
Calm
Right femur shaft fracture s/p right femur retrograde nail fixation on with orthopedic
Leg no other Martin bandage
Incident spirometer
Ankle pumps
DVT prophylaxis and analgesics per orthopedic surgery
PT OT
History of PAD CVA CAD
S/p fem bypass
On Plavix being held discussed with Ortho when to resume
Continue aspirin
For vasular duplex to assess flow
Acute hyperkalemia, imroved
Initiate Lokelma [id number]
Monitor on telemetry
Repeat EKG to assess for changes
Repeat BMP at 3pm
Marissa on CKD stage IIIb
Creat at baseline
Start IVF gently hydration
If not improving get urine studies, ck
But at this time suspect pre-renal etiology
Chronic Metabolic Acidosis secondary to chronic kidney disease
-Continue sodium bicarbonate
Anxiety
-Continue lorazepam, buspirone and venlafaxine
Peripheral neuropathy due to chemotherapy
Chronic pain syndrome/chronic opioid dependence
-Continue gabapentin
-Continue oxycodone
Hypothyroidism
-Continue Levothyroxine
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
-Patient performs stand/pivot to wheelchair at baseline
Dysphagia
-Patient maintained on IDDSI 6 with Thin Liquids
Chronic Thrombocytopenia
-Monitor platelet count
Chronic Normocytic Anemia, likely anemia of chronic disease
Anticipated Discharge: > 48 hours
Subjective/Interval History
-
Date of Service: February 08, 2025
seen and examined. no new complaints. no back pain nor abdominal pain
feeling better
Objective Data
-
Labs:
Laboratory Results
02/08/25
05:13
Sodium 139
Potassium 5.1
Chloride 106
Carbon Dioxide 21 L
BUN 49 H
Creatinine 3.1 H
Glucose 115 H
Calcium 9.0
Vital Signs:
Vital Signs
Temp Pulse Resp BP Pulse Ox
98.1 F 78 16 93/55 95
02/08/25 07:25 02/08/25 07:25 02/08/25 07:25 02/08/25 07:25 02/08/25 08:15
I&O
02/07/25 02/08/25 02/09/25
06:59 06:59 06:59
Intake Total 360 / 360 1470 / 1470
Output Total 350 / 350 50 / 50
Balance 1420 / 1420
--- NOTE | 2025-02-08 11:23 | W.PN.ORTHO ---
Today's Communication / Plan
-
POD#1 right retrograde femoral nail under the direction of Dr. Foley
--May be weight bearing as tolerated for transfers
--PT/OT as able
--Continue with pain management as needed
--DVT Prophylaxis per primary team. Ok to resume plavix
--Maintain surgical dressings
--Tyler to be removed at 2 weeks postop
--Case management consult for discharge planning
--Will continue to follow
Assessment
.
Distal Motor Intact: Yes
Dressing:
Clean, dry and intact.
Plan
.
Surgery / Date: Right retrograde femoral nail 02/07/25 [place]
Activity:
Out of bed.
PT/OT
Subjective
.
.:
Patient resting comfortably in bed, eating breakfast. She reports that her right leg is sore.
Vital Signs and Labs
.
Vital Signs and Labs:
Lab Results
02/07/25 05:09
02/08/25 05:13
Temp Pulse Resp BP Pulse Ox
98.1 F 78 16 93/55 95
02/08/25 07:25 02/08/25 07:25 02/08/25 07:25 02/08/25 07:25 02/08/25 08:15
PT 14.1 Sec (11.4-14.6) 02/06/25 10:20
INR 1.06 02/06/25 10:20
Physical Exam
-
Directed exam of right leg reveals surgical dressings in place. There is a small amount of strikethrough present. Mild expected edema. Thigh is soft and compressible. able to plantarflex/dorsiflex the ankle. calf soft and nontender. NVI distally
[2025-02-08] MEDS: NSS 1000 IV (12:00)
[2025-02-08 13:30] VITALS: BP 92/57; PULSE 78; O2SAT 97
[2025-02-08 13:39] LABS: Glucose - Point of Care 133 mg/dl (70-99)
[2025-02-08 15:00] VITALS: BP 95/50
[2025-02-08 17:27] LABS: Glucose - Point of Care 118 mg/dl (70-99)
[2025-02-08 22:15] LABS: Glucose - Point of Care 127 mg/dl (70-99)
[2025-02-08] MEDS: MELATONIN 5 MG PO (22:29)
[2025-02-08] MEDS: PEPCID 20 MG PO (22:30)
[2025-02-08] MEDS: LIPITOR 40 MG PO (22:30)
[2025-02-08 23:04] VITALS: BP 135/80
[2025-02-09] MEDS: NSS 1000 IV ×2 (00:21→14:04)
[2025-02-09] MEDS: SODIUM BICARBONATE 650 MG PO ×3 (03:46→17:15)
[2025-02-09] MEDS: SYNTHROID 112 MCG PO (03:47)
[2025-02-09] MEDS: ROXICODONE 5 MG PO ×4 (03:48→21:14)
[2025-02-09] MEDS: LOKELMA 10 GRAM PO (05:32)
--- NOTE | 2025-02-09 05:59 | W.PN.ORTHO ---
Today's Communication / Plan
-
Appreciate the hospitalist team, continue Tx
Dispo likeky SNF, appreciate CM
WBAT RLE for transfers (baseline)
PT/OT as able
DVT ppx per primary- OK to resume plavix
Ice/elevation/pain control
Dressings to remain 7- 10 days
[place] out 2 weeks post-op (SNF or office)
If henny out at SNF outpatient Ortho follow-up in 4 weeks
Orthopaedics to sign off for now. please reengage with any pertinent questions during the remainder of her admission
Assessment
.
Distal Motor Intact: Yes
Dressing:
Clean, dry and intact. Dressings in place right knee/thigh with mild strikethrough
Assessment:
POD#2 Right retrograde femoral nail
Overall doing/feeling well
Calf soft, nontender
Plan
.
Surgery / Date: Right retrograde femoral nail February 06 ([place])
DVT Prophylaxis: Other (Plavix- OK to resume)
Activity:
Out of bed. WBAT for transfers (baseline)
PT/OT
Discharge Plan: SNF (Appreciate CM)
Subjective
.
.:
Patient resting comfortably. Endorses mild paid to the right thigh
Vital Signs and Labs
.
Vital Signs and Labs:
Lab Results
02/07/25 05:09
Temp Pulse Resp BP Pulse Ox
98.0 F 82 16 135/80 96
02/08/25 23:04 02/08/25 23:04 02/08/25 23:04 02/08/25 23:04 02/08/25 23:04
PT 14.1 Sec (11.4-14.6) 02/06/25 10:20
INR 1.06 02/06/25 10:20
[2025-02-09 07:24] VITALS: BP 108/56
[2025-02-09] MEDS: ATIVAN 0.25 MG PO ×2 (08:02→20:09)
[2025-02-09] MEDS: VITAMIN D3 (cholecalciferol) 25 MCG PO (08:03)
[2025-02-09] MEDS: BUSPAR 10 MG PO ×2 (08:03→20:10)
[2025-02-09] MEDS: LOW STRENGTH ASPIRIN 81 MG PO (08:03)
[2025-02-09] MEDS: PROTONIX 40 MG PO (08:03)
[2025-02-09] MEDS: NEURONTIN 300 MG PO ×3 (08:03→20:10)
[2025-02-09] MEDS: EFFEXOR XR 225 MG PO (08:03)
[2025-02-09] MEDS: TYLENOL 1000 MG PO ×2 (08:03→17:15)
[2025-02-09 08:13] LABS: Glucose - Point of Care 98 mg/dl (70-99)
[2025-02-09] MEDS: NOVOLOG FLEXPEN-LOW RESISTANCE SC ×3 (08:14→17:19)
[2025-02-09] MEDS: PEPCID 20 MG PO (09:16)
[2025-02-09 09:34] LABS: Blood Urea Nitrogen 47 mg/dl (7-17); Calcium 8.6 mg/dl (8.4-10.2); Carbon Dioxide 22 mmol/L (22-30); Chloride 109 mmol/L (98-107); Estimated Creatinine Clearance 27 ml/min; Glucose 106 mg/dl (70-99); Potassium 4.1 mmol/L (3.5-5.1); Sodium 140 mmol/L (135-145); eGFR 18.86
--- NOTE | 2025-02-09 10:24 | CM ---
CM reviewed medical records.
[facility]
[phone]
--- NOTE | 2025-02-09 10:55 | WOUNDNOTE ---
ABDOMEN (L SIDE, STOMA)
--- NOTE | 2025-02-09 10:56 | WOUNDNOTE ---
L 3RD TOE
--- NOTE | 2025-02-09 11:19 | WOUNDNOTE ---
R THIGH/HIP (POSTERIOR)
--- NOTE | 2025-02-09 11:30 | WOUNDNOTE ---
[facility] RN note: Patient admitted with R femur fracture. s/p R femur IM nail 02/07/25. Nursing requested pouch change d/t leakage.
See H&P for complete history.
PMH: From physician report: 'Past Medical History: Reports Other
Additional Past Medical History:
ASCVD (PAD, CVA, CAD)
DM II
CKD 3B
Rheumatoid Arthritis
COPD
RACHEL
Peripheral neuropathy due to chemotherapy
Chronic pain syndrome/chronic opioid dependence
Radiation colitis
Cervical cancer -treated with radiation and chemotherapy
Nephrolithiasis
Chronic thrombocytopenia
Fibromyalgia
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
Parotid Mass
Hypothyroidism
Past Surgical History: Reports Other
Additional Past Surgical History:
Bowel resection and colostomy due to colon perforation
Colostomy Revision x 4 and ultimate Ileostomy (2021)
G-tube Placement
Hemiglossectomy & parotidectomy
Multiple Digital Amputations'
Wound Location and type/assessment: Patient has scratch garza on posterior hips and buttocks skin. R buttocks with partial thickness pink ulcer suspect could be r/t patient scratching vs abrasion. Heels blanchable red.
Appetite: on 1999 calorie diet.
Pressure redistribution devices in place: Waffle air overlay. Air chair cushion.
Plan: Ostomy appliance changed using Grove wafer # [id number], Angélica seal and Aubrey pouch # [id number]. Sacral shaped silicone border foam applied. Silicone border foam applied to L buttocks. Heel foam dressings changed. Heels off bed with air chair
cushion. Patient turned to L semi side lying position with foam turning wedge and pillow with help from WILLIAM Lawrence. t/c SPD and ordered a bariatric air chair cushion and Foot Waffle boots. Discussed with WILLIAM Lawrence.
Will confirm orders with hospitalist. Nursing care assist patient with ostomy appliance changes. Will follow peripherally as needed.
Note to case management of equipment requested for discharge: Air mattress.
[2025-02-09 12:37] LABS: Glucose - Point of Care 85 mg/dl (70-99)
[2025-02-09 14:40] VITALS: BP 126/58; PULSE 84; O2SAT 95
[2025-02-09 14:43] VITALS: BP 126/58; PULSE 84; O2SAT 95
[2025-02-09 15:20] VITALS: BP 135/66
--- NOTE | 2025-02-09 16:03 | W.PN.HOSP.TC ---
Addendum entered and electronically signed by Melvin Valles MD 02/09/25 17:50:
Seen and examined by me independently in collaboration with the site medical director.
Lab data and imaging data reviewed.
Addendum as below :
Ortho and vascular input noted
*DC plan.
With regards to DVT prophylaxis post Ortho surgery would prefer low-dose Eliquis 2.5 mg twice daily. Patient is on aspirin and Plavix for almost 2 years now. Looking back at the 2022 discharge it looks like it was started post CVA. If No other
indication for Plavix we will dc it and just continue with aspirin. In meantime continue with Plavix and low-dose Eliquis for prophylaxis. Watch platelets closely.
Original Note:
Today's Communication/Plan
-
Pain control, ice and elevation. PT/OT
Start Eliquis 2.5mg BID for DVT ppx
Assessment / Plan
Assessment / Plan
Right femur shaft fracture:
s/p right femur retrograde nail fixation on with orthopedic
- ice, elevate, analgesics
- Continue incentive spirometer
- Weight bearing as tolerated for transfers (chronic amb dysfunction at baseline)
- Okay to resume plavix
- Appreciate ortho recs. Will need outpt follow up in 2 weeks
- PT OT
- Begin DVT ppx Eliquis 2.5mg BID
History of PAD CVA CAD:
S/p fem bypass.
LE arterial study showed bilateral moderate arterial insufficiency
- Okay to resume Plavix today
- DC aspirin 81
- Can have non-urgent follow up with vascular surgery outpatient
Acute hyperkalemia:
resolved s/p Lokelma
Initiate Lokelma [id number]
- Follow BMP
Marissa on CKD stage IIIb:
Likely prerenal. Improving with IVF
- Continue gentle hydration
Chronic Metabolic Acidosis secondary to chronic kidney disease
-Continue sodium bicarbonate
Anxiety
-Continue lorazepam, buspirone and venlafaxine
Peripheral neuropathy due to chemotherapy
Chronic pain syndrome/chronic opioid dependence
-Continue gabapentin
-Continue oxycodone
Hypothyroidism
-Continue Levothyroxine
Chronic right Hemiparesis:
Chronic ambulatory dysfunction:
secondary to CVA
-Patient performs stand/pivot to wheelchair at baseline
-Appreciate PT/OT
Dysphagia
-Patient maintained on IDDSI 6 with Thin Liquids
Chronic Thrombocytopenia
-Monitor platelet count
Chronic Normocytic Anemia, likely anemia of chronic disease
DVT ppx: Eliquis 2.5mg BID
Anticipated Discharge: 24 - 48 hours
Subjective/Interval History
-
Date of Service: February 09, 2025
No acute overnight events
Objective Data
-
Labs:
Laboratory Results
02/09/25
08:37
Sodium 140
Potassium 4.1
Chloride 109 H
Carbon Dioxide 22
BUN 47 H
Creatinine 2.8 H
Glucose 106 H
Calcium 8.6
Vital Signs:
Vital Signs
Temp Pulse Resp BP Pulse Ox
98.4 F 91 18 135/66 100
02/09/25 15:20 02/09/25 15:20 02/09/25 15:20 02/09/25 15:20 02/09/25 15:20
I&O
02/08/25 02/09/25 02/10/25
06:59 06:59 06:59
Intake Total 1470 / 1470 1360 / 1360
Output Total 50 / 50
Balance 1420 / 1420 1360 / 1360 -
Review of Systems
-
History Source: Patient
Respiratory: Denies Trouble Breathing
Cardiac: Denies Chest Pain
Abdomen/GI: Denies Abdominal Pain or Nausea
Musculoskeletal: Reports Joint Pain (Right hip and thigh pain)
Physical Exam
-
General: Well Developed, Well Nourished and No Apparent Distress
HEENT: Atraumatic, Moist Mucous Membranes and Anicteric
Respiratory: Clear to Auscultation (anteriorly) and Non Labored Respirations; Negative Wheezes, Rales, Rhonchi or Crackles
Cardiac: Regular Rhythm and S1/S2; Negative Murmur, Rub or Calf Tenderness
GI: Soft, Nontender, Nondistended and Normal Bowel Sounds
Musculoskeletal: No Clubbing, No Cyanosis and Other (Tenderness and mild swelling of right thigh. Compartments soft. Normal color/temp. Normal cap refill. Dressings of surgical site intact)
Skin: Warm and Dry
Neuro: Awake, Alert and Oriented
[2025-02-09] MEDS: PLAVIX 75 MG PO (17:15)
[2025-02-09 17:19] LABS: Glucose - Point of Care 99 mg/dl (70-99)
[2025-02-09] MEDS: LIPITOR 40 MG PO (20:10)
[2025-02-09] MEDS: ELIQUIS 2.5 MG PO (20:12)
[2025-02-09] MEDS: MELATONIN 5 MG PO (21:14)
[2025-02-09] MEDS: TYLENOL PO (21:15)
[2025-02-09 21:45] LABS: Glucose - Point of Care 92 mg/dl (70-99)
[2025-02-09 23:15] VITALS: BP 122/47
[2025-02-10] VITALS (10 sets, daily range): BP systolic 102–160; BP diastolic 56–79
[2025-02-10] MEDS: SODIUM BICARBONATE 650 MG PO ×3 (02:25→17:11)
[2025-02-10] MEDS: ROXICODONE 5 MG PO ×2 (02:25→19:36)
[2025-02-10] MEDS: SYNTHROID 112 MCG PO (05:08)
[2025-02-10] MEDS: ZOFRAN 4 MG IV (06:11)
--- NOTE | 2025-02-10 07:25 | PN.CDI ---
CDI
- -
CDI:
Physician Documentation Request
Admit Date: 02/06/25 15:10
Dear Doctor,
Please review the following and provide your response in the progress notes.
Clinical Indicators:
- 02/06 ER Physician indicates distal femur fracture due to a fall out of her wheelchair
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
- 02/09 PN 'Right femur shaft fracture'
Please provide further specificity regarding the diagnosis of the right femur shaft fracture:
Traumatic fracture
Pathologic fracture due to chronic disease
Due to a combination of trauma and a pathological process but the trauma alone would not likely have been sufficient to cause the fracture
Other (please specify)
Use of terms such as suspected, likely, concern for, or probable (associated with a specific diagnosis that is being evaluated, monitored, or treated as if it exists) are acceptable and can be coded in the inpatient setting, when documented at the
time of discharge.
Thank you,
Guy Womack RN
CDI Specialist
Please use your independent medical judgment in providing your response.
[2025-02-10 07:58] LABS: Hematocrit 16.5 % (37.0-47.0); Hemoglobin 5.4 g/dL (12.0-16.0); Mean Corp Hgb Conc. 32.7 g/dL (33.0-37.0); Mean Corpuscular Hgb 31.4 pg (27.0-31.0); Mean Corpuscular Volume 95.9 fL (81.0-99.0); Platelet Count 90 10^3/uL (130-400); Red Blood Cell Count 1.72 10^6/uL (4.20-5.40); Red Cell Dist. Width 14.2 % (11.5-14.5); White Blood Cell Count 7.1 10^3/uL (4.8-10.8)
[2025-02-10 08:11] LABS: Blood Urea Nitrogen 38 mg/dl (7-17); Calcium 8.6 mg/dl (8.4-10.2); Carbon Dioxide 21 mmol/L (22-30); Chloride 111 mmol/L (98-107); Estimated Creatinine Clearance 36 ml/min; Glucose 107 mg/dl (70-99); Sodium 142 mmol/L (135-145); eGFR 26.64
[2025-02-10] MEDS: PROTONIX 40 MG PO (08:19)
[2025-02-10] MEDS: VITAMIN D3 (cholecalciferol) 25 MCG PO (08:19)
[2025-02-10] MEDS: EFFEXOR XR 225 MG PO (08:19)
[2025-02-10] MEDS: ATIVAN 0.25 MG PO ×2 (08:19→19:35)
[2025-02-10] MEDS: BUSPAR 10 MG PO ×2 (08:20→19:36)
[2025-02-10] MEDS: NEURONTIN 300 MG PO ×3 (08:20→19:35)
[2025-02-10] MEDS: TYLENOL 1000 MG PO ×3 (08:21→21:21)
[2025-02-10] MEDS: NOVOLOG FLEXPEN-LOW RESISTANCE SC ×2 (08:26→12:09)
[2025-02-10] MEDS: PLAVIX PO (08:26)
[2025-02-10] MEDS: ELIQUIS PO (08:26)
[2025-02-10 08:33] LABS: Glucose - Point of Care 137 mg/dl (70-99)
[2025-02-10 08:53] LABS: Hematocrit 16.1 % (37.0-47.0); Hemoglobin 5.3 g/dL (12.0-16.0)
[2025-02-10 11:57] LABS: Glucose - Point of Care 119 mg/dl (70-99)
--- NOTE | 2025-02-10 13:09 | W.PN.HOSP.TC ---
Addendum entered and electronically signed by Melvin Valles MD 02/10/25 14:58:
Seen and examined by me independently in collaboration with the medical scientist.
Lab data and imaging data reviewed.
Addendum as below :
Patient is alert and oriented. She apparently was hallucinating earlier n bit paranoid. Currently without agitation. Follows commands.
Abdomen soft.
Passive range of movements in the right leg okay.
Right thigh seems softer without any obvious hematoma.
Drop in H&H noted. No labs were done from 02/07. No external bleeding evident. Suspect still perioperative/postoperative acute blood loss anemia. In view of fall we will get a CT of the pelvis and also CT of the thigh-reports shows no evidence of
retroperitoneal bleeding or pelvic fractures of bleeding. There is hematomas in the right thigh which might explain her anemia. Transfused 2 units of blood with Lasix cover.
Follow her mood and for agitation.
Total time spent on today's encounter was 52 minutes which included time spent in counseling the patient/family regarding diagnosis and treatment plan as listed above, goals of care, and symptom management. Case was discussed with nursing staff,
specialists, and care coordinators/case management. All labs and imaging personally reviewed by me. Remainder the time spent in detailed review of previous records, lab data, imaging, and other medical provider documentation.
Original Note:
Today's Communication/Plan
-
Transfuse 2U PRBCs
Assessment / Plan
Assessment / Plan
Traumatic right femur shaft fracture:
From fall during transfer from wheelchair to bed.
s/p right femur retrograde nail fixation on with orthopedic surgery
- ice, elevate, analgesics
- Continue incentive spirometer
- Weight bearing as tolerated for transfers (chronic amb dysfunction at baseline)
- Okay to resume plavix
- Appreciate ortho recs. Will need outpt follow up in 2 weeks
- Patient with poor appetite. Encourage PO intake. Start Ensure supplement
- PT OT
- Eliquis for DVT ppx
Acute blood loss anemia:
Hemoglobin 5.4 this AM. Repeat HandH confirmed result.
- CT pelvis with no evidence of hematoma s/p fall.
- RLE CT with Mild intramuscular hematoma about the fracture site primarily involving the quadriceps musculature, small subQ hematoma.
- Transfuse 2u PRBC
Hallucinations:
Patient states her mother is in here, 'up the stairs'. When asked if she could see her mother she said no, 'but I hear her'. Otherwise is alert and oriented, and can make her needs known. No agitation. Pt appears suspicious of
Altered mental status secondary to anemia vs delirium. Patient does have risk factors for delirium.
- Judicial use of analgesics/sedating meds and proper pain control
- Transfuse 2U PRBCs
- Lasix 20mg between units
- Will reach out to halfway to ascertain baseline
History of PAD CVA CAD:
S/p fem bypass.
LE arterial study showed bilateral moderate arterial insufficiency
- Continue Plavix
- Can have non-urgent follow up with vascular surgery outpatient
Acute hyperkalemia:
resolved s/p Lokelma
- Follow BMP
Marissa on CKD stage IIIb:
Likely prerenal. Resolved with IVF
Chronic Metabolic Acidosis secondary to chronic kidney disease
-Continue home sodium bicarbonate
Anxiety
-Continue lorazepam, buspirone and venlafaxine
Peripheral neuropathy due to chemotherapy
Chronic pain syndrome/chronic opioid dependence
-Continue gabapentin
-Continue oxycodone
Hypothyroidism
-Continue Levothyroxine
Chronic right Hemiparesis:
Chronic ambulatory dysfunction:
secondary to CVA
-Patient performs stand/pivot to wheelchair at baseline
-Appreciate PT/OT
Dysphagia
-Patient maintained on rectal
Chronic Thrombocytopenia
-Monitor platelet count
Chronic Normocytic Anemia, likely anemia of chronic disease
DVT ppx: Eliquis 2.5mg BID
Anticipated Discharge: 24 - 48 hours
Subjective/Interval History
-
Date of Service: February 10, 2025
AM lab showing Hgb/hct 5.4/16.5
Nurse reports pt has intermittent confusion with no agitation, some hallucination about her mother being present or nearby.
Patient had one episode of emesis early AM
Objective Data
-
Labs:
Laboratory Results
02/10/25 02/10/25
06:35 08:32
WBC 7.1
Hgb 5.4 L* D 5.3 L*
Hct 16.5 L* 16.1 L*
Plt Count 90 L
Sodium 142
Potassium 4.0
Chloride 111 H
Carbon Dioxide 21 L
BUN 38 H
Creatinine 2.1 H
Glucose 107 H
Calcium 8.6
Vital Signs:
Vital Signs
Temp Pulse Resp BP Pulse Ox
98.5 F 83 16 160/79 100
02/10/25 12:10 02/10/25 12:10 02/10/25 12:10 02/10/25 12:10 02/10/25 12:10
I&O
02/09/25 02/10/25 02/11/25
06:59 06:59 06:59
Intake Total 1360 / 1360 1560 / 1560 0 / 0
Output Total
Balance 1360 / 1360 1535 / 1535 -25
Review of Systems
-
History Source: Patient
Constitutional: Reports No Appetite
Respiratory: Denies Trouble Breathing
Cardiac: Denies Chest Pain
Abdomen/GI: Denies Abdominal Pain, Nausea, Vomiting, Diarrhea, Constipated or Bloody Stools
Genitourinary: Denies Dysuria
Neuro: Denies Dizzy or Headache
Physical Exam
-
General: No Apparent Distress and Comfortable
HEENT: Normocephalic, Atraumatic and Anicteric
Respiratory: Clear to Auscultation and Non Labored Respirations; Negative Wheezes, Rales, Rhonchi or Crackles
Cardiac: Regular Rhythm and S1/S2; Negative Murmur, Rub or Calf Tenderness
GI: Soft, Nontender, Nondistended, Normal Bowel Sounds and Ostomy (normal stool )
Musculoskeletal: No Clubbing, No Cyanosis and No Edema
Skin: Warm and Dry
Neuro: Awake, Alert and Oriented
Psych: Anxious and Other (appears suspicious of nursing staff, auditory hallucination); Negative Agitated
[2025-02-10] MEDS: LASIX 20 MG IV (15:11)
[2025-02-10 17:35] LABS: Glucose - Point of Care 170 mg/dl (70-99)
[2025-02-10] MEDS: NOVOLOG FLEXPEN-LOW RESISTANCE 1 UNITS SC (17:47)
[2025-02-10] MEDS: LIPITOR 40 MG PO (19:35)
[2025-02-10] MEDS: MELATONIN 5 MG PO (21:21)
[2025-02-10 21:58] LABS: Glucose - Point of Care 159 mg/dl (70-99)
[2025-02-11] VITALS (8 sets, daily range): BP systolic 127–159; BP diastolic 62–81; PULSE 61–63; O2SAT 97–98
[2025-02-11 00:43] LABS: Hematocrit 20.9 % (37.0-47.0); Hemoglobin 6.9 g/dL (12.0-16.0)
[2025-02-11] MEDS: SODIUM BICARBONATE 650 MG PO ×3 (01:08→16:52)
--- NOTE | 2025-02-11 01:10 | PTCARENOTE ---
Patients repeat hgb from 0000 is only 6.9 (she is s/p 2 units of PRBC) No signs of increasing heamtomas, no increased drainage from incisions, VSS. Notified TOUCH UP EDGER. TOUCH UP EDGER bedside to evaluate pt as well. Will order 1 unit of blood.
Per blood bank, pt has antibody so they have to order directly from [facility]. Will notify me when it is here.
TOUCH UP EDGER also requesting I notify ortho team. TT sent.
Will continue to monitor.
--- NOTE | 2025-02-11 02:48 | W.PN.UPDATE ---
Update Note
Progress Note Update
Pt received second unit of PRBC's at beginning of awake overnight monitor. Repeat H&H ordered for midnight, result 6.9. Ordered 1 unit PRBC's, per blood bank will take a few hours to receive as they will have to order her blood. (Note, blood bank said they
would order 2 units, even though only 1 unit ordered to be transfused.)
RN TT Ortho to advise of above.
[2025-02-11] MEDS: SYNTHROID 112 MCG PO (05:31)
[2025-02-11 06:57] LABS: Glucose - Point of Care 141 mg/dl (70-99)
--- NOTE | 2025-02-11 07:08 | W.PN.UPDATE ---
Update Note
Progress Note Update
Nursing reached out overnight with update regarding Ms. Garsia. She was found to be anemic to 5.3 and received 2 units PRBC. Her repeat hgb only increased to 6.9. She received another unit of blood overnight, and repeat hgb is pending this morning.
On exam this morning, her dressings reveal only dried blood, no active bleeding apparent. Expected post-operative edema, but no obvious hematomas and compartments are soft and nontender. I am not concerned for any ongoing surgical site bleeding. We
appreciate the assistance of medical team in continued management of this patient. Orthopedics will follow peripherally, but please don't hesitate to reach out with any additional questions or concerns.
[2025-02-11 07:38] LABS: Hematocrit 20.3 % (37.0-47.0); Hemoglobin 6.6 g/dL (12.0-16.0); Mean Corp Hgb Conc. 32.5 g/dL (33.0-37.0); Mean Corpuscular Hgb 29.9 pg (27.0-31.0); Mean Corpuscular Volume 91.9 fL (81.0-99.0); Mean Platelet Volume 9.1 fL (7.4-10.4); Platelet Count 119 10^3/uL (130-400); Red Blood Cell Count 2.21 10^6/uL (4.20-5.40); Red Cell Dist. Width 17.4 % (11.5-14.5)
[2025-02-11 07:49] LABS: Blood Urea Nitrogen 35 mg/dl (7-17); Carbon Dioxide 24 mmol/L (22-30); Chloride 110 mmol/L (98-107); Estimated Creatinine Clearance 35 ml/min; Glucose 129 mg/dl (70-99); Potassium 3.8 mmol/L (3.5-5.1); Sodium 144 mmol/L (135-145)
[2025-02-11] MEDS: NOVOLOG FLEXPEN-LOW RESISTANCE SC ×3 (08:14→16:52)
[2025-02-11] MEDS: PROTONIX 40 MG PO (08:16)
[2025-02-11] MEDS: PEPCID 20 MG PO (08:16)
[2025-02-11] MEDS: EFFEXOR XR 225 MG PO (08:16)
[2025-02-11] MEDS: VITAMIN D3 (cholecalciferol) 25 MCG PO (08:16)
[2025-02-11] MEDS: TYLENOL 1000 MG PO ×3 (08:16→21:07)
[2025-02-11] MEDS: ATIVAN 0.25 MG PO ×2 (08:16→20:52)
[2025-02-11] MEDS: NEURONTIN 300 MG PO ×3 (08:16→21:06)
[2025-02-11] MEDS: BUSPAR 10 MG PO ×2 (08:16→20:53)
--- NOTE | 2025-02-11 09:28 | W.PN.HOSP.TC ---
Addendum entered and electronically signed by Melvin Valles MD 02/11/25 16:27:
Seen and examined by me independently in collaboration with the medical research scientist.
Lab data and imaging data reviewed.
Addendum as below :
Patient H&H improved though not adequate rise. This morning hemoglobin was 6.9 and got another unit transfused.
No obvious external bleeding. Right thigh is soft with dried out blood on the dressing. Doubt ongoing acute bleeding into the soft tissues. CT imaging showed couple of areas of thigh hematomas, nothing on the CT of the pelvis.
I doubt she has active bleeding going on. Will follow H&H after transfusion.
Looking back at her records from normal 2022 when she had a stroke the recommendation then was dual antiplatelet agent for 21 days and then continue with Plavix. She has no coronary stents we are aware about. I would leave her on Plavix. If H&H
remained stable will start on DVT prophylaxis with subcu Lovenox for 4 weeks. Platelets are adequate though below the normal range. Currently on sequential teds for DVT prophylaxis.
DC in a.m to rehab if hemoglobin is stable.
Original Note:
Today's Communication/Plan
-
Transfuse 1 unit PRBC. Recheck Hand H
Hold DVT ppx for now given anemia.
Continue antiplatelet monotherapy
Assessment / Plan
Assessment / Plan
Traumatic right femur shaft fracture:
From fall during transfer from wheelchair to bed.
s/p right femur retrograde nail fixation on with orthopedic surgery
- ice, elevate, analgesics
- Continue incentive spirometer
- Weight bearing as tolerated for transfers (chronic amb dysfunction at baseline)
- Plavix restarted
- Appreciate ortho recs. Will need outpt follow up in 2 weeks
- Encourage PO intake with Ensure supplement
- PT OT
- DVT ppx currently on hold given acute blood loss anemia. Likely DC on Lovenox for DVT ppx
Acute blood loss anemia:
Secondary to Femoral fx with fixation
Hemoglobin 5.4 noted on 02/10.
CT pelvis with no evidence of hematoma s/p fall.
RLE CT with Mild intramuscular hematoma about the fracture site primarily involving the quadriceps musculature, small subQ hematoma.
- No evidence of active bleeding. Right thigh soft, mildly tender, dressings intact with minimal blood noted. Ostomy output non-bloody
- Status post 2u PRBC with Hgb improvement to 6.6 this AM. Pt to get another unit of PRBC. Recheck H&H
Hallucinations:
Patient denies hallucinations today. Is alert and oriented, and can make her needs known. No agitation.
Altered mental status secondary to anemia vs delirium. Patient does have risk factors for delirium.
- Judicial use of analgesics/sedating meds and proper pain control
- Treat acute anemia as above
- Will reach out to assisted to ascertain baseline
History of PAD CVA CAD:
S/p fem bypass graft
LE arterial study now showed bilateral moderate arterial insufficiency
- Continue Plavix. Asp discontinued. No indication for DAPT. Will confirm history via records and long-term
- Can have non-urgent follow up with vascular surgery outpatient
Acute hyperkalemia:
resolved s/p Lokelma
- Follow BMP
Marissa on CKD stage IIIb:
- Likely prerenal. Resolved with IVF. Cr at baseline
Chronic Metabolic Acidosis secondary to chronic kidney disease
-Continue home sodium bicarbonate
Anxiety
-Continue lorazepam, buspirone and venlafaxine
Peripheral neuropathy due to chemotherapy
Chronic pain syndrome/chronic opioid dependence
-Continue gabapentin
-Continue oxycodone
Hypothyroidism
-Continue Levothyroxine
Chronic right Hemiparesis:
Chronic ambulatory dysfunction:
secondary to CVA
-Patient performs stand/pivot to wheelchair at baseline
-Appreciate PT/OT
Dysphagia:
-Hx of speech eval with recs for regular diet with nectar-thick liquids. However, patient reports working with speech therapist Flower at [facility] with most recent recs being soft/bite-sized with thin liquids. Will change diet order.
Chronic Thrombocytopenia
-Potentially from chronic DAPT. Change to monotherapy
-Monitor platelet count
Chronic Normocytic Anemia, likely anemia of chronic disease
DVT ppx: SCDs
Anticipated Discharge: Within 24 hours
Subjective/Interval History
-
Date of Service: February 11, 2025
Objective Data
-
Labs:
Laboratory Results
02/11/25 02/11/25
00:13 05:44
WBC 7.0
Hgb 6.9 L* D 6.6 L*
Hct 20.9 L* 20.3 L*
Plt Count 119 L D
Sodium 144
Potassium 3.8
Chloride 110 H
Carbon Dioxide 24
BUN 35 H
Creatinine 2.2 H
Glucose 129 H
Calcium 9.0
Vital Signs:
Vital Signs
Temp Pulse Resp BP Pulse Ox
98.0 F 68 16 136/63 96
02/11/25 09:23 02/11/25 09:23 02/11/25 09:23 02/11/25 09:23 02/10/25 23:15
I&O
02/10/25 02/11/25 02/12/25
06:59 06:59 06:59
Intake Total 1560 / 1560 2160 / 2160 0 / 0
Output Total 625 / 625
Balance 1535 / 1535 1535 / 1535 0 / 0
Review of Systems
-
History Source: Patient
Constitutional: Denies No Appetite
Respiratory: Denies Trouble Breathing
Cardiac: Denies Chest Pain
Abdomen/GI: Denies Abdominal Pain, Nausea, Vomiting or Bloody Stools
Musculoskeletal: Reports Other (Mild right thigh pain)
Hematologic / Lymphatic: Denies Bleeding
Physical Exam
-
General: No Apparent Distress and Comfortable; Negative Respiratory Distress
HEENT: Normocephalic, Atraumatic and Anicteric
Respiratory: Clear to Auscultation and Non Labored Respirations; Negative Wheezes, Rales, Rhonchi or Crackles
Cardiac: Regular Rhythm and S1/S2; Negative Murmur, Rub or Calf Tenderness
GI: Soft, Nontender, Nondistended, Normal Bowel Sounds and Ostomy (normal content)
Musculoskeletal: No Clubbing, No Cyanosis and Other (Right thigh soft, mildly edematous, mildly tender, dressings intact with minimal blood. Limb with baseline neurovascular status)
Skin: Warm and Dry
Neuro: Awake, Alert, Oriented and Other (right upper and lower extremity weakness)
Psych: Calm, Intact Judgement/Insight and Other (Not responding to external stimuli); Negative Agitated
--- NOTE | 2025-02-11 09:33 | CM ---
Patient is a LTC resident at [facility]
Referral in [facility]
hgb 6.6 today
PLAN: [facility] when medically stable
Report #: [phone]
Fax #: [phone]
[2025-02-11 11:24] LABS: Glucose - Point of Care 112 mg/dl (70-99)
[2025-02-11 16:50] LABS: Glucose - Point of Care 103 mg/dl (70-99)
[2025-02-11] MEDS: ROXICODONE 5 MG PO ×2 (16:58→20:55)
[2025-02-11] MEDS: LIPITOR 40 MG PO (21:07)
[2025-02-11] MEDS: MELATONIN 5 MG PO (21:07)
[2025-02-11 21:21] LABS: Hematocrit 23.3 % (37.0-47.0); Hemoglobin 7.7 g/dL (12.0-16.0)
[2025-02-11 21:40] LABS: Glucose - Point of Care 118 mg/dl (70-99)
[2025-02-12] MEDS: SODIUM BICARBONATE 650 MG PO ×2 (03:00→09:56)
[2025-02-12] MEDS: SYNTHROID 112 MCG PO (05:21)
[2025-02-12] MEDS: ROXICODONE 5 MG PO ×2 (05:22→09:56)
[2025-02-12 07:10] VITALS: BP 143/80
[2025-02-12 07:14] LABS: Hemoglobin 8.2 g/dL (12.0-16.0); Mean Corp Hgb Conc. 34.2 g/dL (33.0-37.0); Mean Corpuscular Hgb 30.1 pg (27.0-31.0); Mean Corpuscular Volume 88.2 fL (81.0-99.0); Mean Platelet Volume 8.7 fL (7.4-10.4); Platelet Count 109 10^3/uL (130-400); Red Blood Cell Count 2.72 10^6/uL (4.20-5.40); White Blood Cell Count 6.3 10^3/uL (4.8-10.8)
--- NOTE | 2025-02-12 07:26 | W.PN.HOSP.TC ---
Addendum entered and electronically signed by Melvin Valles MD 02/12/25 15:34:
Seen and examined by me independently in collaboration with the medical physics teacher.
Lab data and imaging data reviewed.
Addendum as below :
Patient feels much improved with transfusion. She feels more energetic. Denies any shortness of breath. Chest is clear.
Pain from the right femur fracture repair site is okay.
Tolerating diet.
Medically stable for discharge to rehab.
Told him discharge 35 minutes
Original Note:
Today's Communication/Plan
-
Hgb stable. Stable for discharge today
Assessment / Plan
Assessment / Plan
Traumatic right femur shaft fracture:
From fall during transfer from wheelchair to bed.
s/p right femur retrograde nail fixation on with orthopedic surgery
- ice, elevate, analgesics
- Continue incentive spirometer
- Weight bearing as tolerated for transfers (chronic amb dysfunction at baseline)
- Continue Plavix
- Appreciate ortho recs. Will need outpt follow up in 2 weeks
- Encourage PO intake with Ensure supplement
- PT OT
- DVT ppx currently on hold given acute blood loss anemia. Likely DC on Lovenox or Eliquis for DVT ppx
Acute blood loss anemia:
Perioperative
Hemoglobin 5.4 noted on 02/10.
CT pelvis with no evidence of hematoma s/p fall.
RLE CT with Mild intramuscular hematoma about the fracture site primarily involving the quadriceps musculature, small subQ hematoma.
- No evidence of active bleeding. Right thigh remains soft, mildly tender, dressings intact with minimal blood noted. Ostomy output non-bloody
- Status post 3u PRBCs total. Hgb stable at 8.2
Hallucinations:
Appears to be resolved
Likely secondary to acute anemia. No agitation or inattention. Remains alert and oriented and able to make her needs known. Resolved status post PRBC transfusions
- Spoke to nurse at [facility], patient was noted to be depressed from mother's passing in October. No prior history of confusion or hallucinations.
History of PAD CVA CAD:
S/p fem bypass graft
LE arterial study now showed bilateral moderate arterial insufficiency
- Continue Plavix. Asp discontinued per neuro recommendations at previous admission. No indication for DAPT at this time.
- Can have non-urgent follow up with vascular surgery outpatient
Acute hyperkalemia:
resolved s/p Lokelma
- Follow BMP
Marissa on CKD stage IIIb:
- Likely prerenal. Resolved with IVF. Cr at baseline
Wounds:
Right hip: x4 surgical incision sites. Not present on arrival.
Bilateral heel: Pressure injury. Present on arrival
Generalized buttock: Abrasion, nonpressure related.
- Wound care
Chronic Metabolic Acidosis secondary to chronic kidney disease
-Continue home sodium bicarbonate
Anxiety and depression:
-Per [facility], patient depressed after mother's passing. She denies active depressive symptoms and declines psych evaluation whrn offered.
-Continue lorazepam, buspirone and venlafaxine
Peripheral neuropathy due to chemotherapy
Chronic pain syndrome/chronic opioid dependence
-Continue gabapentin
-Continue oxycodone
Hypothyroidism
-Continue Levothyroxine
Chronic right Hemiparesis:
Chronic ambulatory dysfunction:
secondary to CVA
-Patient performs stand/pivot to wheelchair at baseline
-Appreciate PT/OT
Dysphagia:
-Maintained on IDDSI 6 with thin liquids as established with speech therapist at LT facility
Chronic Thrombocytopenia
-Potentially from chronic DAPT. Change to monotherapy with Plavix
-Monitor platelet count
Chronic Normocytic Anemia, likely anemia of chronic disease
DVT ppx: SCDs
Anticipated Discharge: Today
Subjective/Interval History
-
Date of Service: February 12, 2025
No acute overnight events
Objective Data
-
Labs:
Laboratory Results
02/11/25 02/12/25
21:06 05:36
WBC 6.3
Hgb 7.7 L 8.2 L
Hct 23.3 L 24.0 L
Plt Count 109 L
Sodium Pending
Potassium Pending
Chloride Pending
Carbon Dioxide Pending
BUN Pending
Creatinine Pending
Glucose Pending
Calcium Pending
Vital Signs:
Vital Signs
Temp Pulse Resp BP Pulse Ox
97.8 F 65 18 135/62 96
02/11/25 23:00 02/11/25 23:00 02/11/25 23:00 02/11/25 23:00 02/11/25 23:00
I&O
02/11/25 02/12/25 02/13/25
06:59 06:59 06:59
Intake Total 2160 / 2160 1324 / 1324
Output Total 625 / 625 875 / 875
Balance 1535 / 1535 449 / 449
Review of Systems
-
History Source: Patient
Constitutional: Denies Fever or No Appetite
Respiratory: Denies Trouble Breathing
Cardiac: Denies Chest Pain or Palpitations
Abdomen/GI: Denies Abdominal Pain, Nausea or Vomiting
Genitourinary: Denies Dysuria or Difficulty Voiding
Musculoskeletal: Reports Other (moderate right thigh pain)
Neuro: Denies Dizzy or Headache
Psych: Denies Depressed
Physical Exam
-
General: Well Nourished, No Apparent Distress and Comfortable
HEENT: Normocephalic, Atraumatic and Anicteric
Respiratory: Clear to Auscultation and Non Labored Respirations; Negative Wheezes, Rales, Rhonchi or Crackles
Cardiac: Regular Rhythm and S1/S2; Negative Murmur, Rub or Calf Tenderness
GI: Soft, Nontender, Nondistended and Normal Bowel Sounds
Musculoskeletal: No Clubbing, No Cyanosis and Other (Right thigh mildly swollen, mildly tender. Soft)
Skin: Warm and Dry
Neuro: Awake, Alert, Oriented and Other (RUE and RLE weakness, dysarthria noted)
Psych: Calm and Confused
[2025-02-12 07:27] LABS: Glucose - Point of Care 105 mg/dl (70-99)
[2025-02-12 07:46] LABS: Blood Urea Nitrogen 30 mg/dl (7-17); Calcium 9.3 mg/dl (8.4-10.2); Carbon Dioxide 22 mmol/L (22-30); Chloride 108 mmol/L (98-107); Estimated Creatinine Clearance 47 ml/min; Glucose 84 mg/dl (70-99); Potassium 4.2 mmol/L (3.5-5.1); Sodium 142 mmol/L (135-145); eGFR 36.92
[2025-02-12] MEDS: EFFEXOR XR 225 MG PO (08:49)
[2025-02-12] MEDS: NOVOLOG FLEXPEN-LOW RESISTANCE SC ×2 (08:49→13:06)
[2025-02-12] MEDS: NEURONTIN 300 MG PO (08:51)
[2025-02-12] MEDS: TYLENOL 1000 MG PO (08:51)
[2025-02-12] MEDS: PLAVIX 75 MG PO (08:51)
[2025-02-12] MEDS: PROTONIX 40 MG PO (08:51)
[2025-02-12] MEDS: ATIVAN 0.25 MG PO (08:51)
[2025-02-12] MEDS: BUSPAR 10 MG PO (08:51)
[2025-02-12] MEDS: VITAMIN D3 (cholecalciferol) 25 MCG PO (08:52)
--- NOTE | 2025-02-12 10:17 | CM ---
CM following re: discharge planning.
Reviewed pt's chart, met with pt.
According to p is medically stable to be discharged today. Pt is aware, expressed her agreement with discharge and agrees to return back to [facility]. IMM reviewed, placed on chart, pt has a copy.
Pt stated she has 2 supportive daughters and they visiting her at [facility] often
CM spoke to [facility] liaison, updated clinical requested and she confirmed that pt is accepted for admission today.
Updated pt's clinical faxed to [facility].
[facility] nursing report: [phone]
Discharge instructions fax: [phone]
D/C plan: return back to [facility].
[2025-02-12 12:51] LABS: Glucose - Point of Care 133 mg/dl (70-99)
--- NOTE | 2025-02-12 16:45 | WOUNDNOTE ---
[facility] RN note: t/c Savannah Beal, spoke with clerk Red who stated nurse cannot come to the phone. Message left with Neda to pass onto nurse that an air mattress is recommended for patient d/t she is high risk for a pressure injury. Gave
Neda this screen writer's office number if nurse has any questions.
--- NOTE | 2025-02-12 17:58 | W.DCSUMMARY ---
Discharge Summary
Discharge Data
Date of Admission: 02/06/25
Date of Discharge: 02/12/25
-
Pending Results: No
Hospital Course
Discharging Physician : Rosey Huddleston MD., Melvin Valles MD.
Disposition : long-term care
Primary care physician : ZafarA. Sam MD.
Principal Discharge diagnosis : Traumatic right femur shaft fracture, right femur retrograde nail fixation, perioperative acute blood loss anemia, hyperkalemia
Chronic Discharge diagnosis : Plantar artery disease, CVA, chronic right hemiparesis, coronary artery disease, chronic metabolic acidosis, chronic kidney disease 3b, peripheral neuropathy, anxiety and depression, dysphagia, chronic thrombocytopenia,
chronic normocytic anemia, chronic pain syndrome with chronic opioid dependence, chronic ambulatory dysfunction, history of cervical cancer, radiation colitis s/p colectomy and ileostomy, RACHEL
Hospital Course :
59-year-old female with above pmh who presented to ED from [facility] with right thigh pain after sustaining a fall while transferring from wheelchair to bed. Vitals were stable on arrival and there was swelling
and tenderness to distal right thigh, with intact distal pulses. Hemoglobin was 8.2, plt 101, cr 2.0. X-ray was consistent with femur fracture. Inpatient care and outpatient recommendations as follows:
Traumatic right femur shaft fracture:
Right femur retrograde nail fixation procedure done on
- Continue Ice/elevation. Dressings to remain 7- 10 days total. [place] should be removed 2 weeks post-op (at LT or ortho office). If tyler removed at LT, she is to have outpatient Ortho follow-up in 4 weeks.
- Continue Lovenox daily for 28 days as DVT prophylaxis.
- Weight bearing as tolerated for transfers
Perioperative acute blood loss anemia:
Hemoglobin 5.4 noted on 02/10. There was no evidence of active bleeding. Right thigh with mild intramuscular and small subcutaneous hematoma noted on imaging.
- Patient received 3 units PRBCs in total, with hemoglobin remaining stable at 8.2.
Hallucinations:
Pt reported hearing her mother close by (who had passed in October). No agitation noted. Likely secondary to acute blood loss anemia. Resolved after PRBC transfusions.
History of PAD CVA CAD:
S/p fem bypass graft
New LE vascular duplex showed bilateral moderate arterial insufficiency
- Plavix was continued. Asp was discontinued per neuro recommendations at previous admission. After discussing with LTC facility and chart review, there was no indication for DAPT. Please continue Plavix only.
- Recommend outpatient follow up with vascular surgery
Acute hyperkalemia:
resolved s/p lokelma
Marissa on CKD stage IIIb:
- Resolved with IVF
Home medications were continued/held/discontinued as appropriate. Patient continued to improve throughout stay and was deemed stable for discharge to [facility] facility.
Important imaging findings :
Right hip and femur x-ray 02/06/2025:
There is an obliquely oriented, displaced fracture through the mid to distal right femoral diaphysis. The hips and pelvis are unremarkable. Numerous surgical clips are present within both groins. There is degenerative disc disease within the
inferior lumbar spine.
Femur x-ray 02/07/2025:
An intramedullary danish has been placed throughout the right femoral shaft. There are 4 surgical screws distally. The oblique fracture of the distal femoral shaft is still evident. There is 1 cm lateral displacement of the distal fracture fragment.
This is stable.
There are skin tyler located proximally. There are surgical clips in the right groin.
There is mild subcutaneous emphysema about the distal thigh. There are mild vascular calcifications
Lower extremity peripheral artery ultrasound with WALE 02/08/2025:
1. Right lower extremity: WALE 0.64, consistent with moderate arterial insufficiency. Decreased from prior study 0.86. TBI 0.60. Monophasic waveforms from common femoral through popliteal artery, indicative of possible inflow disease or common
femoral artery disease. Elevated common femoral and profunda femoral artery velocities may indicate moderate stenoses. No additional stenoses are identified.
2. Left lower extremity: WALE 0.66, consistent with moderate arterial insufficiency. Decreased from prior study 0.92. History of first toe amputation, and second toe to small for cuff measurement, and therefore toe pressure is unobtainable.
Monophasic waveforms from common femoral through popliteal artery indicative of possible inflow disease. Mildly elevated profunda velocity 165 cm/s with velocity ratio suggests possible greater than 50% profunda stenosis. No additional velocity
elevations to suggest any other stenoses are identified.
3. Patent femoral to femoral artery bypass graft. Mildly elevated proximal anastomotic velocity 255 cm/s, but velocity ratio relative to common femoral artery not suggestive of any significant stenosis.
Right lower extremity CT without IV contrast; CT pelvis without IV contrast 02/10/2025:
Acute, oblique fracture of the distal right femoral diaphysis transfixed by an intramedullary danish. Mild intramuscular hematoma about the fracture site primarily involving the quadriceps musculature. Small subcutaneous hematoma of the anterior upper
thigh deep to the skin tyler.
Procedure findings :
02/07/2025: Right femur retrograde nail fixation procedure
Discharge Plan
-
Patient Disposition: Care Home/SNF
Discharge Diagnosis/Procedures: Traumatic right femur shaft fracture, right femur retrograde nail fixation, perioperative acute blood loss anemia
Condition: Good
Diet: Low Cholesterol
Additional Diets: Soft bite-sized foods with thin liquids
Activity: As tolerated
Additional Activity: Weight bearing as tolerated on right lower extremity for transfers
Driving Restrictions: No driving
Bathing Restrictions: None
Activity Restrictions/Additional Instructions:
Ostomy supplies: [place] wafer # [id number], Angélica seal and Aubrey pouch # [id number]. Change 2 times a week and as needed for leakage.
Buttock open areas-clean with saline or soap and water, silicone border foam, change q 3 days and prn loosened dressing. If foam ineffective, apply zinc barrier ointment (i.e. Calazime) BID instead.
Air mattress
Soft heel relief boots as tolerated (i.e. Foot Waffle boots); air chair cushion under heels/boots.
Pressure redistributing chair cushion (i.e. bariatric air chair cushion).
Referrals:
Michael Vargas MD [Family Provider] - in less than 1 week
Ireen Abdi CRNP [Specified Professional Personl] - 03/11/25 2:00 pm
Additional Discharge Medication Instructions: Ice/elevation/pain control.
Fracture repair was on 02/07/2025. Dressings to remain 7- 10 days total. Tyler should be removed 2 weeks post-op (at LTC or office)
If tyler removed at LT, outpatient Ortho follow-up in 4 weeks
DVT prophylaxis (Lovenox) for 28 days.
Prescriptions:
New
enoxaparin 40 mg/0.4 mL syringe
40 mg SC DAILY Qty: 4 2RF
Continued
clopidogrel [Plavix] 75 mg Tablet
75 mg PO DAILY
atorvastatin 40 mg tablet
40 mg PO HS
acetaminophen 325 mg Tablet
650 mg PO Q4HPRN PRN (Reason: mild pain/temp>100F)
sodium bicarbonate 650 mg Tablet
650 mg PO Q8H
Fleet Enema 19-7 gram/118 mL Enema
118 ml AK DAILYPRN PRN (Reason: if dulcolax is ineffective after 24hrs)
Rx Instructions:
prn
gabapentin 300 mg capsule
300 mg PO TID
loratadine 10 mg Tablet
10 mg PO DAILY
cholecalciferol (vitamin D3) [Vitamin D3] 25 mcg (1,000 unit) Tablet
25 mcg PO DAILY
melatonin 5 mg Tablet
5 mg PO HS
bisacodyl [Dulcolax (bisacodyl)] 10 mg Suppository
10 mg AK DAILYPRN PRN (Reason: if no bm aftr mom)
Rx Instructions:
prn
diclofenac sodium 1 % Gel
2 g TOPICAL TID
venlafaxine 225 mg Tablet Extended Release 24hr
225 mg PO DAILY
famotidine 20 mg tablet
20 mg PO HS
lorazepam [Ativan] 0.5 mg Tablet
0.25 mg PO BID
magnesium hydroxide [Milk of Magnesia] 400 mg/5 mL Suspension
30 ml PO [id number] PRN (Reason: no bm x3 days)
buspirone 10 mg Tablet
10 mg PO BID
oxycodone 5 mg tablet
5 mg PO Q6HPRN PRN (Reason: severe pain)
pantoprazole 40 mg tablet,delayed release (DR/EC)
40 mg PO DAILY
lisinopril 5 mg Tablet
5 mg PO DAILY
levothyroxine 112 mcg tablet
112 mcg PO DAILY
Discontinued
aspirin 81 mg Tablet,Chewable
81 mg PO DAILY
Discharge Orders:
Discharge Patient (As Directed); Ordered 02/12/25
Ordered By: Rosey Huddleston
Discharge Date and Time
Discharge Date/Time: 02/12/25 14:20
Print Language: KOREAN
== END 2025-02-12 14:20 | DRG 481 ==
LOC: 2 SOUTH 15:10
PROVIDERS: Hospitalist; Nurse Practitioner Family; Physician Assistant Medical; Student in an Organized Health Care Education/Training Program; ADMITTING PHYSICIAN Internal Medicine; ATTENDING PHYSICIAN Internal Medicine; CONSULT PHYSICIAN Orthopaedic Surgery; EMERGENCY PHYSICIAN Student in an Organized Health Care Education/Training Program; FAMILY PHYSICIAN Internal Medicine
PROC: 0QS836Z Reposition Right Femoral Shaft with Intramedullary Internal Fixation Device, Percutaneous Approach (ICD-10-PCS; 2025-02-07)
PROC: 30233N1 Transfusion of Nonautologous Red Blood Cells into Peripheral Vein, Percutaneous Approach (ICD-10-PCS; 2025-02-10)
DX: S72.331A Displaced oblique fracture of shaft of right femur, initial encounter for closed fracture (principal); D62 Acute posthemorrhagic anemia; N17.9 Acute kidney failure, unspecified; I69.351 Hemiplegia and hemiparesis following cerebral infarction affecting right dominant side; F11.20 Opioid dependence, uncomplicated; E87.22 Chronic metabolic acidosis; Z66 Do not resuscitate; E11.22 Type 2 diabetes mellitus with diabetic chronic kidney disease; I12.9 Hypertensive chronic kidney disease with stage 1 through stage 4 chronic kidney disease, or unspecified chronic kidney disease; N18.32 Chronic kidney disease, stage 3b; M06.9 Rheumatoid arthritis, unspecified; J44.9 Chronic obstructive pulmonary disease, unspecified; E03.9 Hypothyroidism, unspecified; D69.6 Thrombocytopenia, unspecified; G89.4 Chronic pain syndrome; G62.0 Drug-induced polyneuropathy; G47.33 Obstructive sleep apnea (adult) (pediatric); I25.10 Atherosclerotic heart disease of native coronary artery without angina pectoris; F32.A Depression, unspecified; F41.9 Anxiety disorder, unspecified; G47.00 Insomnia, unspecified; E87.5 Hyperkalemia; E78.5 Hyperlipidemia, unspecified; D63.8 Anemia in other chronic diseases classified elsewhere; F17.210 Nicotine dependence, cigarettes, uncomplicated; F43.10 Post-traumatic stress disorder, unspecified; M16.11 Unilateral primary osteoarthritis, right hip; M17.11 Unilateral primary osteoarthritis, right knee; M79.7 Fibromyalgia; I69.320 Aphasia following cerebral infarction; R44.1 Visual hallucinations; T45.1X5A Adverse effect of antineoplastic and immunosuppressive drugs, initial encounter; Z99.3 Dependence on wheelchair; Z95.5 Presence of coronary angioplasty implant and graft; Z93.2 Ileostomy status; Z79.890 Hormone replacement therapy; Z88.0 Allergy status to penicillin; Z90.710 Acquired absence of both cervix and uterus; Z92.3 Personal history of irradiation; Z88.2 Allergy status to sulfonamides; Z79.02 Long term (current) use of antithrombotics/antiplatelets; Z79.82 Long term (current) use of aspirin
CPT/HCPCS: 72192; 73502; 73552; 73700; 76000; 80048; 80053; 82607; 82728; 82746; 82962; 83036; 83540; 83550; 85014; 85018; 85025; 85027; 85610; 85730; 86850; 86900; 86901; 86902; 86920; 86922; 87070; 93005; 93922; 93925; 96374; 96376; 97163; 97167; 97530; 97535; 99285; P9016

== ENCOUNTER 2025-02-17 22:34 | Inpatient (IN) | payer MEDICARE, OTHER, SELFPAY ==
[2025-02-17 16:06] VITALS: BP 113/70
[2025-02-17 16:27] LABS: % Basophils 0.2 % (0-2); % Eosinophils 3.1 % (0-6); % Immature Granulocytes 1.2 % (0-0.5); % Lymphocytes 4.5 % (20.5-51.1); % Monocytes 5.5 % (1.7-9.3); % Neutrophils 85.5 % (42.2-75.2); Absolute Eosinophils 0.4 10^3/uL (0-0.7); Absolute Immature Granulocytes 0.1 10^3/uL (0-0.05); Absolute Lymphocytes 0.5 10^3/uL (1.2-3.4); Absolute Monocytes 0.7 10^3/uL (0.1-0.6); Absolute Neutrophils 10.4 10^3/uL (1.4-6.5); Hematocrit 30.6 % (37.0-47.0); Hemoglobin 9.7 g/dL (12.0-16.0); Mean Corp Hgb Conc. 31.7 g/dL (33.0-37.0); Mean Corpuscular Hgb 29.8 pg (27.0-31.0); Mean Corpuscular Volume 94.2 fL (81.0-99.0); Mean Platelet Volume 8.5 fL (7.4-10.4); Nucleated Red Blood Cells % 0 %; Platelet Count 156 10^3/uL (130-400); Red Blood Cell Count 3.25 10^6/uL (4.20-5.40); White Blood Cell Count 12.1 10^3/uL (4.8-10.8)
[2025-02-17 16:48] LABS: ALT (SGPT) 11 U/L (0-35); AST (SGOT) 14 U/L (14-36); Albumin 3.7 g/dl (3.5-5.0); Alkaline Phosphatase 87 U/L (38-126); Blood Urea Nitrogen 41 mg/dl (7-17); Calcium 9.5 mg/dl (8.4-10.2); Carbon Dioxide 25 mmol/L (22-30); Chloride 107 mmol/L (98-107); Glucose 115 mg/dl (70-99); Lipase 190 U/L (23-300); Potassium 5.1 mmol/L (3.5-5.1); Sodium 141 mmol/L (135-145); Total Bilirubin 0.7 mg/dl (0.2-1.3); Total Protein 7.5 g/dl (6.3-8.2); eGFR 28.25
[2025-02-17 17:54] VITALS: BP 103/66
[2025-02-17 18:00] VITALS: BP 106/60; BP 106/76
--- NOTE | 2025-02-17 19:00 | ED.GENMED ---
History of Present Illness
General
Chief Complaint: Abdominal Symptoms
Time Seen by Provider: 02/17/25 19:00
History of Present Illness
History of Present Illness:
TIME OF INITIAL ENCOUNTER: 7 PM
HPI: Patient presents by ambulance from [facility] with persistent vomiting. He was recently here with right femur repair. She vomited 7 times today. She was seen here for similar episodes which were less severe about a month ago with
unremarkable workup. She feels that the symptoms have been worsening now.
EXAM:
GENERAL: The patient is generally weak and debilitated chronically ill in appearance
HEENT: Dry oral mucosa
CARDIOVASCULAR: No murmurs, normal heart rate, regular rhythm, No chest wall tenderness
PULMONARY: No respiratory distress, breath sounds are clear and equal
ABDOMEN: Colostomy bag noted with dark stool noted in the left upper quadrant
NEUROLOGIC: Decree strength on the right, slurred speech
PSYCHIATRIC: Reasonable mental status with reasonable insight and judgment
EXTREMITIES: Decreased active range of motion at the right lower extremity somewhat related to the pain related to prior/recent right femur surgery
SKIN: Decreased perfusion noted to both feet
NUMBER AND COMPLEXITY OF PROBLEMS ADDRESSED AT THE ENCOUNTER
� Chronic conditions affecting care: Has had stroke, CAD, high blood pressure, cervical cancer radiation-induced cystitis/proctitis.
� Acute Exacerbation and/or Progression of Chronic Illness: This is an acute problem
� Differential Diagnosis includes: SBO, dehydration, acute on chronic renal insufficiency, complication from femur fracture repair
AMOUNT AND/OR COMPLEXITY OF DATA TO BE REVIEWED AND ANALYZED
� I performed an independent evaluation of and my interpretation is:
EKG:
CT: CT imaging suggest enteritis versus PSBO
X-rays:
Laboratory Studies: White count 12.1, hemoglobin 9.7, creatinine 2.0
Other:
� Review of other/old records: I reviewed records, creatinine is generally between 1.6 and 3.1. Patient was recently here with femur fracture complicated by perioperative acute blood loss anemia with hemoglobin as low as 5.4 on
4/29. CAT scan of the abdomen pelvis on 01/16, 01/20, and 01/24 all of which were unremarkable, G-tube noted with tip in stomach.
� Clinical information was obtained by an independent historian: Notes from [facility]
� Prescriptions/Medications Considered but not given:
� Further testing considered but not performed:
RISK OF COMPLICATIONS AND/OR MORBIDITY OR MORTALITY OF PATIENT MANAGEMENT
� Social determinants of health affecting care: Resides at [facility]
� Discussion with other providers: I notified Dr. Dumont, Dr. Yepez for admission
� Escalation of care including admission/observation vs risk of discharge considered: The patient was given IV fluids. CT imaging abnormal and white count is newly elevated. Planning admission to the hospital as she does not
feel well enough to go back to [facility]. Will give swabs for now but keep her NPO.
ANY OTHER UPDATES:
Past History
Past History
ED Past Medical History: CAD, Cancer (Cervical cancer), CVA (X 2), Fibromyalgia, HTN, NIDDM, WA, Hypothyroidism, Psychiatric (Depression, PTSD) and Other (Rheumatoid arthritis, neuropathy, Colitis from radiation, Cellulitis, Sleep apnea uses CPAP,
Renal calculus, Parotid mass, LVH, GI bleeding, Anemia, PTSD); Negative Asthma or Hypercholesterolemia
ED Past Surgical History: Appendectomy, Bowel resection, Cardiac (Cardiac stent), Gynecological (Cervical Cancer with radiaion and Chemo, Hysterectomy), Orthopedic (Left ankle, left knee surgery X 2, Left wrist surgery, Right knee surgery, ),
Tonsilectomy (adnoids) and Other (Colostomy changed to Ileostomy, Ear tubes, Right parotidectomy, Left great toe and second Toe amputation)
Social History
Tobacco: Smoker (1ppd)
Alcohol: None
Drug: None
Personal:
Living: detention
Employment: Not employed
Family History
Family History: Early CAD (in patient's father)
Phy Exam
Physical Exam
Physical Exam:
See HPI
Course
Orders/Labs/Results
Orders:
Orders
02/17/25 16:18
Complete Blood Count/With Diff Urgent
Comprehensive Metabolic Panel Urgent
Lipase Urgent
02/17/25 19:11
CT Abd/pel Without Iv Or Oral Urgent
Comment:
Reason For Exam: N/V pain new leukocytosis
0.9% Sodium Chloride 1000 ml [Nss] 1,000 ml IV BOLUS
Famotidine [Pepcid] 20 mg IV NOW STA
HYDROmorphone [Dilaudid] 0.5 mg IV NOW STA
Ondansetron Injectable [Zofran] 4 mg IV NOW STA
CR Femur - Right Min 2 Vw Urgent
Comment:
Reason For Exam: pain
Abnormal Lab Results
02/17/25
16:18
WBC 12.1 H 10^3/uL
(4.8-10.8)
RBC 3.25 L 10^6/uL
(4.20-5.40)
Hgb 9.7 L g/dL
(12.0-16.0)
Hct 30.6 L %
(37.0-47.0)
MCHC 31.7 L g/dL
(33.0-37.0)
RDW 17.0 H %
(11.5-14.5)
Abs Immat Gran (auto) 0.1 H 10^3/uL
(0-0.05)
Absolute Neuts (auto) 10.4 H 10^3/uL
(1.4-6.5)
Absolute Lymphs (auto) 0.5 L 10^3/uL
(1.2-3.4)
Absolute Monos (auto) 0.7 H 10^3/uL
(0.1-0.6)
Immature Gran % 1.2 H %
(0-0.5)
Neutrophils % 85.5 H %
(42.2-75.2)
Lymphocytes % 4.5 L %
(20.5-51.1)
BUN 41 H mg/dl
(7-17)
Creatinine 2.0 H mg/dL
(0.6-1.0)
Glucose 115 H mg/dl
(70-99)
02/17/25 16:18
02/17/25 16:18
Vital Signs
Initial and Last Documented VS:
Initial Vital Signs
Temp Pulse Resp BP Pulse Ox
36.4 C 90 16 113/70 98
02/17/25 16:06 02/17/25 16:06 02/17/25 16:06 02/17/25 16:06 02/17/25 16:06
Last Documented Vital Signs
Temp Pulse Resp BP Pulse Ox
36.6 C 75 17 106/60 95
02/17/25 18:00 02/17/25 18:00 02/17/25 18:00 02/17/25 18:00 02/17/25 18:00
*Critical Care Note
Total Time (30-74mins, 75-104mins- exclusive of procedures): Not Applicable
ED Attending Note
-
Portions of this chart may have been created with voice recognition software.� Occasional wrong word or��sound alike� substitutions may have occurred due to the inherent limitations of voice recognition software.
Discharge Plan
Departure
Prescriptions:
No Action
clopidogrel [Plavix] 75 mg Tablet
75 mg PO DAILY
atorvastatin 40 mg tablet
40 mg PO HS
acetaminophen 325 mg Tablet
650 mg PO Q4HPRN PRN (Reason: mild pain/temp>100F)
sodium bicarbonate 650 mg Tablet
650 mg PO Q8H
Fleet Enema 19-7 gram/118 mL Enema
118 ml [place] DAILYPRN PRN (Reason: if dulcolax is ineffective after 24hrs)
Rx Instructions:
prn
gabapentin 300 mg capsule
300 mg PO TID
loratadine 10 mg Tablet
10 mg PO DAILY
cholecalciferol (vitamin D3) [Vitamin D3] 25 mcg (1,000 unit) Tablet
25 mcg PO DAILY
melatonin 5 mg Tablet
5 mg PO HS
bisacodyl [Dulcolax (bisacodyl)] 10 mg Suppository
10 mg WA DAILYPRN PRN (Reason: if no bm aftr mom)
Rx Instructions:
prn
diclofenac sodium 1 % Gel
2 g TOPICAL TID
venlafaxine 225 mg Tablet Extended Release 24hr
225 mg PO DAILY
famotidine 20 mg tablet
20 mg PO HS
lorazepam [Ativan] 0.5 mg Tablet
0.25 mg PO BID
magnesium hydroxide [Milk of Magnesia] 400 mg/5 mL Suspension
30 ml PO [id number] PRN (Reason: no bm x3 days)
buspirone 10 mg Tablet
10 mg PO BID
oxycodone 5 mg tablet
5 mg PO Q6HPRN PRN (Reason: severe pain)
pantoprazole 40 mg tablet,delayed release (DR/EC)
40 mg PO DAILY
lisinopril 5 mg Tablet
5 mg PO DAILY
levothyroxine 112 mcg tablet
112 mcg PO DAILY
enoxaparin 40 mg/0.4 mL syringe
40 mg SC DAILY Qty: 4 2RF
Referrals:
Michael Vargas MD [Family Provider] -
Interventions
Interventions:
*Risk Screen - Suicide Last Done: 02/17/25 18:26
*General Assessment Last Done: 02/17/25 18:20
*Neglect/Abuse Screening Last Done: 02/17/25 18:22
*ED- Fall Risk Assessment Last Done: 02/17/25 18:19
*ED COVID-19 Vaccine History Last Done: 02/17/25 18:19
DH-Dnpvid-Fwwgfzwikk Assessment Last Done: 02/17/25 18:26
Discharge Date and Time
Print Language: ICELANDIC
[2025-02-17] MEDS: NSS 1000 IV (19:28)
[2025-02-17] MEDS: DILAUDID 0.5 MG IV (19:29)
[2025-02-17] MEDS: ZOFRAN 4 MG IV (19:29)
[2025-02-17] MEDS: PEPCID 20 MG IV (19:31)
--- NOTE | 2025-02-17 22:03 | HPS.HSE ---
Family Physician
-
Family Physician: Michael Vargas
Chief Complaint
-
vomiting, abdominal pain
History of Present Illness
59-year-old female past medical history of recurrent SBO, PAD status post femoropopliteal bypass, CVA, CAD, CKD 3B, right hip wounds, anxiety/depression, peripheral neuropathy secondary to chemotherapy, chronic pain syndrome, opiate dependence,
hypothyroidism, chronic right hemiparesis, chronic ambulatory dysfunction, dysphagia, chronic thrombocytopenia, chronic normocytic anemia, rheumatoid arthritis, COPD, obstructive sleep apnea, cervical cancer status post hysterectomy and radiation,
radiation colitis status post colectomy ileostomy, parotid mass, presenting with persistent vomiting. She vomited 7 times today. She was seen for similar episodes last month with unremarkable workup. She complains of diffuse abdominal pain. She
did have chills. Denies fever. Denies eating any restaurant or outside food.
Denies chest pain or shortness of breath.
Complains of pain in her right leg and has chronic pain especially with recent surgery.
Denies urinary symptoms.
Denies alcohol use. Smokes 2 cigarettes a day.
Medical History
Past Medical History
Past Medical History: Reports Other (recurrent SBO, PAD status post femoropopliteal bypass, CVA, CAD, CKD 3B, right hip wounds, anxiety/depression, peripheral neuropathy secondary to chemotherapy, chronic pain syndrome, opiate dependence,
hypothyroidism, chronic right hemiparesis, chronic ambulatory dysfunction, dysphagia, chronic thro)
Past Surgical History: Reports Other (Bowel resection and colostomy due to colon perforation Colostomy Revision x 4 and ultimate Ileostomy (2021) G-tube Placement Hemiglossectomy & parotidectomy Multiple Digital Amputations)
Social History
Tobacco: Smoker
Alcohol: None
Drug: None
Family History
Family History: Not pertinent
Allergies / Home Medications
Allergies reflects when Allergies were last updated in [facility].
Home Medications with original date entered in [facility]
Allergy/Medication List:
Allergies
Allergy/AdvReac Type Severity Reaction Status Date / Time
adhesive Allergy TAPE-rash Verified 02/17/25 16:12
and itching
infliximab [From Remicade] Allergy Anaphylaxis Verified 02/17/25 16:12
latex Allergy Rash, Verified 02/17/25 16:12
itching,
Hives
Penicillins Allergy Unknown, Verified 02/17/25 16:12
tolerated
amoxicillin
and
ampicillin
in the past
Sulfa (Sulfonamide Allergy Hives, rash Verified 02/17/25 16:12
Antibiotics)
Home Medications
clopidogrel 75 mg tablet (Plavix) 75 mg PO DAILY Heart Disease/Condition 06/25/23
acetaminophen 325 mg tablet 650 mg PO Q4HPRN PRN mild pain/temp>100F 01/22/24
atorvastatin 40 mg tablet 40 mg PO HS High Cholesterol 01/22/24
cholecalciferol (vitamin D3) 25 mcg (1,000 unit) tablet (Vitamin D3) 25 mcg PO DAILY Supplement 01/22/24
gabapentin 300 mg capsule 300 mg PO TID Neurological Condition 01/22/24
loratadine 10 mg tablet 10 mg PO DAILY Allergies 01/22/24
melatonin 5 mg tablet 5 mg PO HS Sleep 01/22/24
sodium bicarbonate 650 mg tablet 650 mg PO Q8H Electrolyte Repletion 01/22/24
sodium phosphates 19 gram-7 gram/118 mL enema (Fleet Enema) 118 ml NV DAILYPRN PRN if dulcolax is ineffective after 24hrs 01/22/24
bisacodyl 10 mg rectal suppository (Dulcolax (bisacodyl)) 10 mg NV DAILYPRN PRN if no bm aftr mom 07/15/24
diclofenac sodium 1 % topical gel 2 g topical TID left shoulder 07/15/24
famotidine 20 mg tablet 20 mg PO HS Gastrointestinal Issue 07/15/24
venlafaxine 225 mg tablet,extended release 24 hr 225 mg PO DAILY Depression 07/15/24
buspirone 10 mg tablet 10 mg PO BID Mental Health/Anxiety 01/20/25
lorazepam 0.5 mg tablet (Ativan) 0.25 mg PO BID Mental Health/Anxiety 01/20/25
magnesium hydroxide 400 mg/5 mL oral suspension (Milk of Magnesia) 30 ml PO [id number] PRN no bm x3 days 01/20/25
oxycodone 5 mg tablet 5 mg PO Q6HPRN PRN severe pain 01/20/25
levothyroxine 112 mcg tablet 112 mcg PO DAILY 02/06/25
lisinopril 5 mg tablet 5 mg PO DAILY 02/06/25
pantoprazole 40 mg tablet,delayed release 40 mg PO DAILY 02/06/25
enoxaparin 40 mg/0.4 mL subcutaneous syringe 40 mg (0.4 mL) SC DAILY #4 mL 02/12/25
Review of Systems
-
History Source: Patient
A 12 point ROS was completed and negative except as noted: Yes
Constitutional: Reports No Symptoms
EENT: Reports No Symptoms
Respiratory: Reports No Symptoms
Cardiac: Reports No Symptoms
Abdomen/GI: Reports No Symptoms
: Reports No Symptoms
Musculoskeletal: Reports No Symptoms
Skin: Reports No Symptoms
Neurological: Reports No Symptoms
Endocrine: Reports No Symptoms
Hematologic/Lymphatic: Reports No Symptoms
Psych: Reports No Symptoms
Physical Exam
Vital Signs
Vital Signs
Temp Pulse Resp BP Pulse Ox
98 F 75 17 106/60 95
02/17/25 18:00 02/17/25 18:00 02/17/25 18:00 02/17/25 18:00 02/17/25 18:00
Physical Exam
General: Well Developed, Well Nourished and No Apparent Distress
HEENT: NormoCephalic, Moist mucous membranes and Atraumatic
Respiratory: Clear
Cardiac: S1/S2 and Regular Rhythm; No Murmur or Rub
GI: Soft, Non Distended, Normal Bowel Sounds and Tender (diffusely ); No Organomegaly
Rectal: Deferred by Provider
Musculoskeletal: No Clubbing, No Cyanosis and No Edema
Skin: No Rash
Neuro: Nonfocal/grossly intact
Laboratory Results
-
02/17/25 16:18
02/17/25 16:18
Laboratory Results
Total Bilirubin 0.7 mg/dl (0.2-1.3) 02/17/25 16:18
AST 14 U/L (14-36) 02/17/25 16:18
ALT 11 U/L (0-35) 02/17/25 16:18
Alkaline Phosphatase 87 U/L (38-126) 02/17/25 16:18
Lipase 190 U/L (23-300) 02/17/25 16:18
Data Reviewed
-
Lab Data: Labs Reviewed by me
Old Records: Reviewed
Impression/Plan
-
IMPRESSION:
PLAN:
# Acute infectious/inflammatory enteritis versus partial small bowel obstruction
# History of recurrent SBO secondary to prior adominak surgeries
-She had 300 cc of watery output from ileostomy bag
-Leukocytosis
- CT abdomen pelvis shows mild fluid distention of the small bowel loops in the right side abdomen demonstrate mild wall thickening and surrounding mild mesenteric edema, possibly acute infectious or inflammatory enteritis, partial small bowel
obstruction
- N.p.o.
- IV fluids
-Zofran, Dilaudid for pain
- General Surgery consult
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
Partially obstructing calculus in the distal left ureter
- Appears unchanged from previous
Cervical cancer status post hysterectomy and radiation
Right femur shaft fracture status post nail fixation on 02/07
Chronic normocytic anemia
Recent perioperative blood loss anemia secondary to intramuscular hematoma fracture site
-Hemoglobin 9.7
- Received 3 units of blood transfusion during last admission
PAD status post fem bypass graft
- Continue Plavix
History of CVA
Chronic right hemiparesis secondary to CVA
Chronic dysphagia
- On IDDSI 6 with thin liquids as established with speech therapist at [facility] facility
Chronic ambulatory dysfunction
CAD
- Continue statin
Essential hypertension
- Continue lisinopril
CKD 3B
- Renal function at base
- Continue sodium bicarbonate
4 surgical site right hip wounds, bilateral heel wound, generalized buttock wound
-wounds healing well
Anxiety/depression
- Continue buspirone, venlafaxine, Ativan
Peripheral neuropathy secondary to chemotherapy
Chronic pain syndrome/chronic opiate dependence
- Continue gabapentin, oxycodone
Fibromyalgia
Hypothyroidism
- Continue levothyroxine
Chronic thrombocytopenia
Rheumatoid arthritis
COPD
Obstructive sleep apnea
History of parotid mass
Full code
DVT prophylaxis�heparin
N.p.o.
[2025-02-18] VITALS (8 sets, daily range): BP systolic 88–110; BP diastolic 50–70; BMI 31.4
[2025-02-18] MEDS: NSS 1000 IV ×3 (00:48→19:55)
[2025-02-18] MEDS: DILAUDID 0.5 MG IV ×2 (01:07→05:16)
--- NOTE | 2025-02-18 02:35 | PTCARENOTE ---
Received pt from ED @ 0125. AAOx3. VSS. Pt arrived saturated. Cleaned up and initiated pure wick due to femur fracture. Right femur with henny from previous fracture. Discussed being NPO for possible surgery-- pt verbalizes understanding. NSS
running thought left AC @ 100 mL/hr. Ileostomy checked and emptied. Call [facility] within reach.
[2025-02-18 06:02] LABS: % Basophils 0.2 % (0-2); % Eosinophils 2.9 % (0-6); % Immature Granulocytes 0.8 % (0-0.5); % Lymphocytes 8.5 % (20.5-51.1); % Monocytes 5.8 % (1.7-9.3); % Neutrophils 81.8 % (42.2-75.2); Absolute Eosinophils 0.4 10^3/uL (0-0.7); Absolute Immature Granulocytes 0.1 10^3/uL (0-0.05); Absolute Lymphocytes 1.1 10^3/uL (1.2-3.4); Absolute Monocytes 0.8 10^3/uL (0.1-0.6); Absolute Neutrophils 10.6 10^3/uL (1.4-6.5); Hematocrit 25.6 % (37.0-47.0); Hemoglobin 8.1 g/dL (12.0-16.0); Mean Corp Hgb Conc. 31.6 g/dL (33.0-37.0); Mean Corpuscular Hgb 30.2 pg (27.0-31.0); Mean Corpuscular Volume 95.5 fL (81.0-99.0); Mean Platelet Volume 8.4 fL (7.4-10.4); Nucleated Red Blood Cells % 0 %; Platelet Count 128 10^3/uL (130-400); Red Blood Cell Count 2.68 10^6/uL (4.20-5.40); Red Cell Dist. Width 17.2 % (11.5-14.5)
[2025-02-18 06:24] LABS: ALT (SGPT) < 10 U/L (0-35); AST (SGOT) 13 U/L (14-36); Albumin 3.2 g/dl (3.5-5.0); Alkaline Phosphatase 76 U/L (38-126); Blood Urea Nitrogen 43 mg/dl (7-17); Calcium 9.3 mg/dl (8.4-10.2); Carbon Dioxide 21 mmol/L (22-30); Chloride 112 mmol/L (98-107); Glucose 98 mg/dl (70-99); Potassium 4.7 mmol/L (3.5-5.1); Sodium 141 mmol/L (135-145); Total Bilirubin 0.8 mg/dl (0.2-1.3); Total Protein 6.5 g/dl (6.3-8.2); eGFR 28.25
--- NOTE | 2025-02-18 10:45 | CM ---
Chart reviewed. Patient is a LTC resident at [facility], wheelchair bound and spoke to patient and plan is to return to [facility]. I spoke to Zoey and she confirmed. Report will be called to [phone] .
[2025-02-18] MEDS: DILAUDID 1 MG IV ×2 (11:00→17:06)
--- NOTE | 2025-02-18 12:22 | W.PN.HOSP.TC ---
Addendum entered and electronically signed by Martín Valencia MD 02/18/25 12:57:
Correction pt stated she is DNR/DNI. Previous record noted and also saw patient was DNR DNI. Changes made.
Original Note:
Today's Communication/Plan
-
Cont IVF
Pain control
PT eval
await surgery input ?if pSBO
Assessment / Plan
Assessment / Plan
# Acute infectious/inflammatory enteritis versus low likelihood partial small bowel obstruction
# History of recurrent SBO secondary to prior abdominal surgeries
# Leukocytosis
- CT abdomen pelvis shows mild fluid distention of the small bowel loops in the right side abdomen demonstrate mild wall thickening and surrounding mild mesenteric edema, possibly acute infectious or inflammatory enteritis, partial small bowel
obstruction
- N.p.o.
- IV fluids. nausea/vomiting seems to have improved.
-Zofran, Dilaudid for pain
- General Surgery consult
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
Partially obstructing calculus in the distal left ureter
- Appears unchanged from previous
Cervical cancer status post hysterectomy and radiation
Right femur shaft fracture status post nail fixation on 02/07
-PT eval. Pain control. DVT ppx.
Chronic normocytic anemia
Recent perioperative blood loss anemia secondary to intramuscular hematoma fracture site
- Received 3 units of blood transfusion during last admission
- No acute need for transfusion
PAD status post fem bypass graft
- Continue Plavix
History of CVA
Chronic right hemiparesis secondary to CVA
Chronic dysphagia
- On IDDSI 6 with thin liquids as established with speech therapist at [facility] facility
Chronic ambulatory dysfunction
CAD
- Continue statin
Essential hypertension
- HOLD lisinopril
CKD 3B
- Renal function at base
- Continue sodium bicarbonate
4 surgical site right hip wounds, bilateral heel wound, generalized buttock wound
-wounds healing well
Anxiety/depression
- Continue buspirone, venlafaxine, Ativan
Peripheral neuropathy secondary to chemotherapy
Chronic pain syndrome/chronic opiate dependence
- Continue gabapentin adjusted based on CrCl-frequency decreased to BID ,
Fibromyalgia
Hypothyroidism
- Continue levothyroxine
Chronic thrombocytopenia
Rheumatoid arthritis
COPD
Obstructive sleep apnea
History of parotid mass
Full code
DVT prophylaxis�lovenox
Anticipated Discharge: > 48 hours
Subjective/Interval History
-
Date of Service: February 18, 2025
had a loose bm earlier today
states of lower abd cramps
had multiple episode of nausea yesterday
Objective Data
-
Labs:
Laboratory Results
02/18/25
05:48
WBC 13.0 H
Hgb 8.1 L
Hct 25.6 L
Plt Count 128 L
Sodium 141
Potassium 4.7
Chloride 112 H
Carbon Dioxide 21 L
BUN 43 H
Creatinine 2.0 H
Glucose 98
Calcium 9.3
Total Bilirubin 0.8
AST 13 L
ALT < 10
Alkaline Phosphatase 76
Vital Signs:
Vital Signs
Temp Pulse Resp BP Pulse Ox
98.2 F 68 18 106/58 95
02/18/25 08:01 02/18/25 08:05 02/18/25 08:01 02/18/25 07:59 02/18/25 08:01
I&O
02/17/25 02/18/25 02/19/25
06:59 06:59 06:59
Output Total 525 / 525
Balance -525 / -525
Physical Exam
-
General: Well Nourished, No Apparent Distress and Comfortable
HEENT: Normocephalic, Atraumatic and Anicteric
Respiratory: Clear to Auscultation and Non Labored Respirations; Negative Wheezes, Rales, Rhonchi or Crackles
Cardiac: Regular Rhythm and S1/S2; Negative Murmur, Rub or Calf Tenderness
GI: Soft, Nondistended, Normal Bowel Sounds, Tender (suprapubic, RLQ and LLQ-mild) and Peg Tube
Musculoskeletal: No Clubbing, No Cyanosis and Other (prior toe amputation noted. )
Skin: Warm and Dry
Neuro: Awake, Alert, Oriented and Other (RUE and RLE weakness, dysarthria noted)
Psych: Calm
Data Reviewed
-
Total Time Spent with Patient (in minutes): 55
[2025-02-18] MEDS: ROXICODONE 5 MG PO ×2 (13:08→22:02)
[2025-02-18] MEDS: SODIUM BICARBONATE 650 MG PO ×2 (13:09→22:03)
[2025-02-18] MEDS: DICLOFENAC 1% TOPICAL GEL 2 GRAM TOPICAL ×2 (14:21→22:17)
[2025-02-18] MEDS: OFIRMEV 100 IV ×2 (14:21→19:55)
--- NOTE | 2025-02-18 15:34 | CON.GS ---
Consultation
-
Date/Time Consultation Performed: 02/18/25
Requesting Provider: kin
Performing Provider: nenita
Reason for Consultation: vomiting
Medical History
-
Chief Complaint: vomiting
History of Present Illness:
59F known to the service for chronic dysmotility s/p radiation, recurrent pSBO, p/w vomiting a/w abd pain more than typical. Yesterday she vomited 7 times and struggled to take PO. Her diffuse abd pain is somewhat increased. Her g tube has been
clamped. She is passing some liquid and flatus into her stoma. Denies f/c. Denies dietary indiscretion.
Past Medical History
Past Medical History: Other (recurrent SBO, PAD, CVA, CAD, CKD 3B, right hip wounds, anxiety/depression, peripheral neuropathy 2/2 chemo, chronic pain syndrome, opiate dependence, hypothyroidism, chronic right hemiparesis, chronic ambulatory
dysfunction, dysphagia)
Past Surgical History: Other (fem-pop bypass, Bowel resection and colostomy due to colon perforation Colostomy Revision x 4 and ultimate Ileostomy (2021) G-tube Placement Hemiglossectomy & parotidectomy Multiple Digital Amputations, hysterectomy)
Social History
Tobacco: Smoker
Alcohol: None
Drug: None
Family History
Family History: Reviewed & Noncontributory
Allergies / Home Medications
Allergy/AdvReac Type Severity Reaction Status Date / Time
adhesive Allergy TAPE-rash Verified 02/17/25 16:12
and itching
infliximab [From Remicade] Allergy Anaphylaxis Verified 02/17/25 16:12
latex Allergy Rash, Verified 02/17/25 16:12
itching,
Hives
Penicillins Allergy Unknown, Verified 02/17/25 16:12
tolerated
amoxicillin
and
ampicillin
in the past
Sulfa (Sulfonamide Allergy Hives, rash Verified 02/17/25 16:12
Antibiotics)
�Medication �Instructions �Recorded �Confirmed �Type
clopidogrel 75 mg tablet (Plavix) 75 mg PO DAILY Heart 06/25/23 02/18/25 History
Disease/Condition
acetaminophen 325 mg tablet 650 mg PO Q4HPRN PRN mild 01/22/24 02/18/25 History
pain/temp>100F
atorvastatin 40 mg tablet 40 mg PO HS High Cholesterol 01/22/24 02/18/25 History
cholecalciferol (vitamin D3) 25 25 mcg PO DAILY Supplement 01/22/24 02/18/25 History
mcg (1,000 unit) tablet (Vitamin
D3)
gabapentin 300 mg capsule 300 mg PO TID Neurological 01/22/24 02/18/25 History
Condition
loratadine 10 mg tablet 10 mg PO DAILY Allergies 01/22/24 02/18/25 History
melatonin 5 mg tablet 5 mg PO HS Sleep 01/22/24 02/18/25 History
sodium bicarbonate 650 mg tablet 650 mg PO Q8H Electrolyte Repletion 01/22/24 02/18/25 History
sodium phosphates 19 gram-7 118 ml CA DAILYPRN PRN if dulcolax 01/22/24 02/18/25 History
gram/118 mL enema (Fleet Enema) is ineffective after 24hrs
bisacodyl 10 mg rectal suppository 10 mg CA DAILYPRN PRN if no bm 07/15/24 02/18/25 History
(Dulcolax (bisacodyl)) aftr mom
diclofenac sodium 1 % topical gel 2 g topical TID left shoulder 07/15/24 02/18/25 History
famotidine 20 mg tablet 20 mg PO HS Gastrointestinal Issue 07/15/24 02/18/25 History
buspirone 10 mg tablet 10 mg PO BID Mental Health/Anxiety 01/20/25 02/18/25 History
lorazepam 0.5 mg tablet (Ativan) 0.25 mg PO BID Mental 01/20/25 02/18/25 History
Health/Anxiety
magnesium hydroxide 400 mg/5 mL 30 ml PO [id number] PRN no bm x3 days 01/20/25 02/18/25 History
oral suspension (Milk of Magnesia)
oxycodone 5 mg tablet 5 mg PO Q6HPRN PRN severe pain 01/20/25 02/18/25 History
levothyroxine 112 mcg tablet 112 mcg PO DAILY 02/06/25 02/18/25 History
lisinopril 5 mg tablet 5 mg PO DAILY 02/06/25 02/18/25 History
pantoprazole 40 mg tablet,delayed 40 mg PO DAILY 02/06/25 02/18/25 History
release
enoxaparin 40 mg/0.4 mL 40 mg (0.4 mL) SC DAILY #4 mL 02/12/25 02/18/25 Rx
subcutaneous syringe
venlafaxine 100 mg tablet 100 mg PO BID Mental Health/Anxiety 02/18/25 02/18/25 History
Review of Systems
-
A 10 point review of systems was completed, and was negative except as per HPI.
Physical Exam
Vital Signs
Temp Pulse Resp BP Pulse Ox
98.3 F 72 18 98/62 97
02/18/25 12:43 02/18/25 12:45 02/18/25 12:43 02/18/25 12:41 02/18/25 12:43
02/17/25 02/18/25 02/19/25
06:59 06:59 06:59
Actual Weight 93.7 kg
Body Mass Index (BMI) 31.4
Lab Results
02/18/25 05:48
02/18/25 05:48
WBC 13.0 10^3/uL (4.8-10.8) H 02/18/25 05:48
Hgb 8.1 g/dL (12.0-16.0) L 02/18/25 05:48
Hct 25.6 % (37.0-47.0) L 02/18/25 05:48
Plt Count 128 10^3/uL (130-400) L 02/18/25 05:48
Abs Immat Gran (auto) 0.1 10^3/uL (0-0.05) H 02/18/25 05:48
Neutrophils % 81.8 % (42.2-75.2) H 02/18/25 05:48
Physical Exam
General: No Apparent Distress
GI: Soft, Tender (diffuse mild ttp, mostly lower abd) and Other (stoma ppv with thin brown liquid and some semi-solid stool in bag, g tube clamped)
Neuro: AO x 3
Psych: Calm
Data Reviewed
-
CT Scan: Image Personally Visualized and interpreted, Report Reviewed by me and Discussed with Patient
Labs: Labs Reviewed by me and Discussed with Patient
Assessment / Plan
-
59F with chronic dysmotility and recurrent pSBO with admission for vomiting
02/12 DC after right femur nail fixation for fracture on 02/07, now readmitted
AFVSS, Nausea remains but no vomiting since admit, mildly ttp on exam - appears to be her typical exam on my encounter, not distended no tympany
Stoma with gas and stool
CT with mildly dilated sb loops to right hemiabdomen with mild wall thickening and surrounding edema
Mild leukocytosis noted
Plan for g0tube to gravity to help with nausea
IVF
Monitoring g tube and stoma outputs
Trend WBC
GS will follow
[2025-02-18] MEDS: LOVENOX 40 MG SC (17:06)
--- NOTE | 2025-02-18 19:38 | PTCARENOTE ---
Pt continues to c/o lower abdominal discomfort with hypoactive bowel sounds and watery light brown liquid in her ileostomy. G tube to gravity drainage, none noted. Pt taking dilaudid and oxycodone for pain control with some relief. Pt turned [id number]
. Pt remains NPO except for medications.
Pt with residual slurred and garbled speech and contracted right hand post CVA.
[2025-02-18] MEDS: EFFEXOR 100 MG PO (19:54)
[2025-02-18] MEDS: ATIVAN 0.25 MG PO (19:54)
[2025-02-18] MEDS: NEURONTIN 300 MG PO (19:54)
[2025-02-18] MEDS: BUSPAR 10 MG PO (19:54)
--- NOTE | 2025-02-18 21:39 | PTCARENOTE ---
pt transferred to [facility]-1- ax3 garbled speech rt hemiparesis.-baseline ileostomy working well. g tube to gravity. rt hip dsg with henny intact- purewick draining clear yellow- all dressings intact
--- NOTE | 2025-02-18 21:44 | PTCARENOTE ---
Pt. transferred to [facility] - report given to WILLIAM Berry.
[2025-02-19] MEDS: OFIRMEV 100 IV ×2 (01:37→08:20)
[2025-02-19] MEDS: ROXICODONE 5 MG PO ×3 (04:53→22:43)
[2025-02-19] MEDS: SODIUM BICARBONATE 650 MG PO ×3 (04:53→19:22)
[2025-02-19] MEDS: SYNTHROID 112 MCG PO (04:53)
[2025-02-19] MEDS: NSS 1000 IV ×2 (05:12→17:06)
[2025-02-19 07:50] VITALS: BP 178/80
[2025-02-19] MEDS: EFFEXOR 100 MG PO ×2 (08:04→19:21)
[2025-02-19] MEDS: BUSPAR 10 MG PO ×2 (08:04→19:22)
[2025-02-19] MEDS: VITAMIN D3 (cholecalciferol) 25 MCG PO (08:04)
[2025-02-19] MEDS: ATIVAN 0.25 MG PO ×2 (08:04→19:20)
[2025-02-19] MEDS: NEURONTIN 300 MG PO ×2 (08:04→19:22)
[2025-02-19] MEDS: DICLOFENAC 1% TOPICAL GEL 2 GRAM TOPICAL ×3 (08:05→22:12)
[2025-02-19] MEDS: PROTONIX IV 40 MG IV (08:07)
[2025-02-19 09:04] LABS: % Basophils 0.1 % (0-2); % Eosinophils 4.1 % (0-6); % Immature Granulocytes 0.5 % (0-0.5); % Lymphocytes 8.5 % (20.5-51.1); % Monocytes 5.1 % (1.7-9.3); % Neutrophils 81.7 % (42.2-75.2); Absolute Eosinophils 0.3 10^3/uL (0-0.7); Absolute Lymphocytes 0.7 10^3/uL (1.2-3.4); Absolute Monocytes 0.4 10^3/uL (0.1-0.6); Absolute Neutrophils 6.4 10^3/uL (1.4-6.5); Hematocrit 23.8 % (37.0-47.0); Hemoglobin 7.8 g/dL (12.0-16.0); Mean Corp Hgb Conc. 32.8 g/dL (33.0-37.0); Mean Corpuscular Hgb 31.2 pg (27.0-31.0); Mean Corpuscular Volume 95.2 fL (81.0-99.0); Nucleated Red Blood Cells % 0 %; Red Cell Dist. Width 16.5 % (11.5-14.5); White Blood Cell Count 7.8 10^3/uL (4.8-10.8)
[2025-02-19] MEDS: DILAUDID 1 MG IV ×3 (09:28→19:22)
[2025-02-19 09:57] LABS: Blood Urea Nitrogen 34 mg/dl (7-17); Calcium 9.1 mg/dl (8.4-10.2); Carbon Dioxide 21 mmol/L (22-30); Chloride 111 mmol/L (98-107); Estimated Creatinine Clearance 38 ml/min; Glucose 72 mg/dl (70-99); Potassium 4.3 mmol/L (3.5-5.1); Sodium 142 mmol/L (135-145); eGFR 30.04
[2025-02-19 10:50] VITALS: BP 152/69; PULSE 67
[2025-02-19 11:05] LABS: Platelet Count 93 10^3/uL (130-400)
--- NOTE | 2025-02-19 11:17 | W.PN.GS2 ---
Addendum entered and electronically signed by Carson Dumont MD 02/19/25 11:41:
I saw and examined the patient.
The Bobbin Dumper's note was reviewed and I agree with the note.
Comment: Pain slightly improved, nausea improved, exam soft, ttp mostly lower abdominal, stoma with thin brown liquid, g-tube bag with ice water, nonbilious. Plan to clamp g tube and cont sips and chips for now
Original Note:
Today's Communication / Plan
-
Clamp g-tube, ok for sips of clears
Assessment / Plan
-
59F with chronic dysmotility and recurrent pSBO. 5/ DC after right femur nail fixation for fracture on 02/07, now readmitted for vomiting. CT with mildly dilated sb loops to right hemiabdomen with mild wall thickening and surrounding edema
AFVSS
Stoma with gas and stool, n/v improved. No distention on exam.
Mild leukocytosis on presentation now resolved
Plan:
Clamp G-tube. Ok for sips and chips
Follow stoma outputs
IVF as per primary team
Subjective Data
-
Date of Service: February 19, 2025
Patient seen and examined at bedside with Dr. Dumont. Pain still present but somewhat better. Denies n/v.
Objective Data
-
Intake and Output
02/18/25 02/19/25 02/20/25
06:59 06:59 06:59
Intake Total 2500 / 2500
Output Total 525 / 525 950 / 950
Balance -525 / -525 1550 / 1550
Intake:
Oral fluids 100 / 100
IV fluids (Total) 2400 / 2400
saline 1200 / 1200
Output:
Liquid stool amount 525 / 525 250 / 250
Ileostomy 525 / 525 250 / 250
Urine, Voided 700 / 700
Other:
How many times incontinent 1 1
MODERATE amount urine
Vital Signs
Temp Pulse Resp BP Pulse Ox
97.6 F 67 20 178/80 97
02/19/25 07:50 02/19/25 07:50 02/19/25 07:50 02/19/25 07:50 02/19/25 07:50
Lab Results
02/19/25 08:24
02/19/25 08:24
Calcium 9.1 mg/dl (8.4-10.2) 02/19/25 08:24
Total Bilirubin 0.8 mg/dl (0.2-1.3) 02/18/25 05:48
AST 13 U/L (14-36) L 02/18/25 05:48
ALT < 10 U/L (0-35) 02/18/25 05:48
Alkaline Phosphatase 76 U/L (38-126) 02/18/25 05:48
Total Protein 6.5 g/dl (6.3-8.2) 02/18/25 05:48
Albumin 3.2 g/dl (3.5-5.0) L 02/18/25 05:48
Physical Exam
-
NAD AAOx3
ABD: soft, ND, localizing tenderness to mid abd but no rebound/guarding
left sided ileostomy -> + stool
Gtube with watery output in drainage bag
--- NOTE | 2025-02-19 11:44 | W.PN.HOSP.TC ---
Today's Communication/Plan
-
pain control
IVF
G tube to gravity
GS following
Assessment / Plan
Assessment / Plan
# partial small bowel obstruction
# History of recurrent SBO secondary to prior abdominal surgeries
# Leukocytosis
- CT abdomen pelvis shows mild fluid distention of the small bowel loops in the right side abdomen demonstrate mild wall thickening and surrounding mild mesenteric edema, possibly acute infectious or inflammatory enteritis, partial small bowel
obstruction
- N.p.o.
- IV fluids.
-Zofran, Dilaudid for pain
-G tube to gravity.
- General Surgery consulted
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
Partially obstructing calculus in the distal left ureter
- Appears unchanged from previous
Cervical cancer status post hysterectomy and radiation
Right femur shaft fracture status post nail fixation on 02/07
-PT eval. Pain control. DVT ppx.
Chronic normocytic anemia
Chronic thrombocytopenia
Recent perioperative blood loss anemia secondary to intramuscular hematoma fracture site
- Received 3 units of blood transfusion during last admission
- No acute need for transfusion. Hgb at 7.8. Monitor for now.
PAD status post fem bypass graft
- Continue Plavix
History of CVA
Chronic right hemiparesis secondary to CVA
Chronic dysphagia
- On IDDSI 6 with thin liquids as established with speech therapist at [facility] facility
Chronic ambulatory dysfunction
CAD
- Continue statin
Essential hypertension
- HOLD lisinopril
CKD 3B
- Renal function at base
- Continue sodium bicarbonate
4 surgical site right hip wounds, bilateral heel wound, generalized buttock wound
-wounds healing well
Anxiety/depression
- Continue buspirone, venlafaxine, Ativan
Peripheral neuropathy secondary to chemotherapy
Chronic pain syndrome/chronic opiate dependence
- Continue gabapentin adjusted based on CrCl-frequency decreased to BID ,
Fibromyalgia
Hypothyroidism
- Continue levothyroxine
Chronic thrombocytopenia
Rheumatoid arthritis
COPD
Obstructive sleep apnea
History of parotid mass
Full code
DVT prophylaxis�lovenox
Anticipated Discharge: > 48 hours
Subjective/Interval History
-
Date of Service: February 19, 2025
remains with b/l lower quadrant abd pain
intermittent nausea
having ostomy output
Objective Data
-
Labs:
Laboratory Results
02/19/25
08:24
WBC 7.8
Hgb 7.8 L
Hct 23.8 L
Plt Count 93 L D
Sodium 142
Potassium 4.3
Chloride 111 H
Carbon Dioxide 21 L
BUN 34 H
Creatinine 1.9 H
Glucose 72
Calcium 9.1
Vital Signs:
Vital Signs
Temp Pulse Resp BP Pulse Ox
97.6 F 67 20 178/80 97
02/19/25 07:50 02/19/25 07:50 02/19/25 07:50 02/19/25 07:50 02/19/25 07:50
I&O
02/18/25 02/19/25 02/20/25
06:59 06:59 06:59
Intake Total 2500 / 2500
Output Total 525 / 525 950 / 950
Balance -525 / -525 1550 / 1550
Physical Exam
-
General: Well Nourished, No Apparent Distress and Comfortable
HEENT: Normocephalic, Atraumatic and Anicteric
Respiratory: Clear to Auscultation and Non Labored Respirations; Negative Wheezes, Rales, Rhonchi or Crackles
Cardiac: Regular Rhythm and S1/S2; Negative Murmur, Rub or Calf Tenderness
GI: Soft, Nondistended, Normal Bowel Sounds, Tender (suprapubic, RLQ and LLQ-mild), Peg Tube and Ostomy (with liquid stools noted)
Musculoskeletal: No Clubbing, No Cyanosis and Other (prior toe amputation noted. )
Skin: Warm and Dry
Neuro: Awake, Alert, Oriented and Other (RUE and RLE weakness, dysarthria noted)
Psych: Calm
[2025-02-19 16:00] VITALS: BP 159/76
[2025-02-19] MEDS: LOVENOX 40 MG SC (17:13)
--- NOTE | 2025-02-19 18:30 | PTCARENOTE ---
peg tube clamped this shift per gen surgery. tolerates sips of clears PRN pain meds ongoing for abd pain. ileostomy with significant output as documented
[2025-02-19 23:42] VITALS: BP 166/83
[2025-02-20] MEDS: DILAUDID 1 MG IV ×4 (02:56→21:44)
[2025-02-20] MEDS: NSS 1000 IV (02:58)
[2025-02-20] MEDS: ROXICODONE 5 MG PO ×3 (05:04→17:28)
[2025-02-20] MEDS: SYNTHROID 112 MCG PO (05:04)
[2025-02-20] MEDS: SODIUM BICARBONATE 650 MG PO ×3 (05:04→21:54)
[2025-02-20] MEDS: NEURONTIN 300 MG PO ×2 (07:22→20:04)
[2025-02-20] MEDS: BUSPAR 10 MG PO ×2 (07:22→20:04)
[2025-02-20] MEDS: EFFEXOR 100 MG PO ×2 (07:22→20:04)
[2025-02-20] MEDS: PROTONIX IV 40 MG IV (07:22)
[2025-02-20] MEDS: VITAMIN D3 (cholecalciferol) 25 MCG PO (07:22)
[2025-02-20] MEDS: ATIVAN 0.25 MG PO ×2 (07:22→20:04)
[2025-02-20] MEDS: DICLOFENAC 1% TOPICAL GEL 2 GRAM TOPICAL ×3 (07:31→21:58)
[2025-02-20 07:45] VITALS: BP 166/73
[2025-02-20 08:12] LABS: % Basophils 0.2 % (0-2); % Immature Granulocytes 0.7 % (0-0.5); % Lymphocytes 11.6 % (20.5-51.1); % Monocytes 5.2 % (1.7-9.3); % Neutrophils 78.3 % (42.2-75.2); Absolute Eosinophils 0.2 10^3/uL (0-0.7); Absolute Lymphocytes 0.7 10^3/uL (1.2-3.4); Absolute Monocytes 0.3 10^3/uL (0.1-0.6); Absolute Neutrophils 4.7 10^3/uL (1.4-6.5); Hematocrit 21.9 % (37.0-47.0); Hemoglobin 7.3 g/dL (12.0-16.0); Mean Corp Hgb Conc. 33.3 g/dL (33.0-37.0); Mean Corpuscular Hgb 30.9 pg (27.0-31.0); Mean Corpuscular Volume 92.8 fL (81.0-99.0); Mean Platelet Volume 8.8 fL (7.4-10.4); Nucleated Red Blood Cells % 0 %; Platelet Count 89 10^3/uL (130-400); Red Blood Cell Count 2.36 10^6/uL (4.20-5.40); Red Cell Dist. Width 16.1 % (11.5-14.5)
[2025-02-20 09:21] LABS: Blood Urea Nitrogen 23 mg/dl (7-17); Calcium 9.1 mg/dl (8.4-10.2); Carbon Dioxide 21 mmol/L (22-30); Chloride 111 mmol/L (98-107); Estimated Creatinine Clearance 45 ml/min; Glucose 51 mg/dl (70-99); Potassium 4.2 mmol/L (3.5-5.1); Sodium 141 mmol/L (135-145); eGFR 36.92
[2025-02-20 09:32] LABS: Glucose - Point of Care 56 mg/dl (70-99)
[2025-02-20 09:54] LABS: Glucose - Point of Care 88 mg/dl (70-99)
--- NOTE | 2025-02-20 11:06 | W.PN.GS2 ---
Today's Communication / Plan
-
G-tube to gravity drainage
Assessment / Plan
-
59F with h/o cervical ca tx with DANIEL/chemo/XRT, radiation colitis with bowel perforation s/p completion colectomy with end ileostomy complicated by parastomal hernia s/p re-siting of end ileostomy to left abdomen, VIHR with unilateral TAR [address] Adkins with multiple admissions for chronic dysmotility and recurrent pSBO.
02/12 DC after right femur nail fixation for fracture on 02/07, now readmitted for vomiting. CT with mildly dilated sb loops to right hemiabdomen with mild wall thickening and surrounding edema
AFVSS
Stoma with gas and stool, n/v improved. No distention on exam but notes increased pain today
Mild leukocytosis on presentation now resolved
Plan:
Will return G-tube to gravity drainage given increased pain
Ok for sips and chips
Follow stoma outputs
Analgesics/IVF as per primary team
Subjective Data
-
Date of Service: February 20, 2025
Patient seen and examined at bedside with Dr. Jones. Denies nausea but notes her pain is a little worse today to the lower abdomen near midline.
Objective Data
-
Intake and Output
02/19/25 02/20/25 02/21/25
06:59 06:59 06:59
Intake Total 2500 / 2500 1640 / 1640
Output Total 950 / 950 700 / 700
Balance 1550 / 1550 940 / 940
Intake:
Oral fluids 100 / 100 440 / 440
IV fluids (Total) 2400 / 2400 1200 / 1200
saline 1200 / 1200
Output:
Liquid stool amount 250 / 250 200 / 200
Ileostomy 250 / 250 200 / 200
Urine, Voided 700 / 700 500 / 500
Other:
How many times incontinent 1
MODERATE amount urine
Vital Signs
Temp Pulse Resp BP Pulse Ox
97.6 F 64 16 166/73 98
02/20/25 07:45 02/20/25 07:45 02/20/25 07:45 02/20/25 07:45 02/20/25 07:45
Lab Results
02/20/25 07:27
02/20/25 07:27
Calcium 9.1 mg/dl (8.4-10.2) 02/20/25 07:27
Total Bilirubin 0.8 mg/dl (0.2-1.3) 02/18/25 05:48
AST 13 U/L (14-36) L 02/18/25 05:48
ALT < 10 U/L (0-35) 02/18/25 05:48
Alkaline Phosphatase 76 U/L (38-126) 02/18/25 05:48
Total Protein 6.5 g/dl (6.3-8.2) 02/18/25 05:48
Albumin 3.2 g/dl (3.5-5.0) L 02/18/25 05:48
Physical Exam
-
NAD AAOx3
ABD: soft, ND, localizing tenderness to mid abd but no rebound/guarding
left sided ileostomy -> + stool
Gtube present, clamped
[2025-02-20 12:03] LABS: Glucose - Point of Care 59 mg/dl (70-99)
[2025-02-20] MEDS: D5LR 1000 IV (12:09)
[2025-02-20 12:31] LABS: Glucose - Point of Care 60 mg/dl (70-99)
--- NOTE | 2025-02-20 12:33 | W.PN.HOSP.TC ---
Today's Communication/Plan
-
Continues with G-tube to gravity
Monitor closely
Change IV fluids
Hypoglycemia protocol
Pain control
Assessment / Plan
Assessment / Plan
# partial small bowel obstruction
# History of recurrent SBO secondary to prior abdominal surgeries
# Leukocytosis
- CT abdomen pelvis shows mild fluid distention of the small bowel loops in the right side abdomen demonstrate mild wall thickening and surrounding mild mesenteric edema, possibly acute infectious or inflammatory enteritis, partial small bowel
obstruction
- N.p.o.
- IV fluids.
-Zofran, Dilaudid for pain
-G tube to gravity. 200 cc of ostomy output
-General Surgery following
# Hypoglycemia
-Change fluid to D5 LR. Hypoglycemia protocol
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
Partially obstructing calculus in the distal left ureter
- Appears unchanged from previous
Cervical cancer status post hysterectomy and radiation
Right femur shaft fracture status post nail fixation on 02/07
-PT eval. Pain control. DVT ppx.
Chronic normocytic anemia
Chronic thrombocytopenia
Recent perioperative blood loss anemia secondary to intramuscular hematoma fracture site
- Received 3 units of blood transfusion during last admission
- No acute need for transfusion. Hgb at 7.3 mild downtrend also noted. Dilutional from IV fluids. Monitor for now.
PAD status post fem bypass graft
- Continue Plavix
History of CVA
Chronic right hemiparesis secondary to CVA
Chronic dysphagia
- On IDDSI 6 with thin liquids as established with speech therapist at LT facility
Chronic ambulatory dysfunction
CAD
- Continue statin
Essential hypertension
- HOLD lisinopril
RHETT on CKD 3B
- Creatinine downtrending to 1.6.
- Continue sodium bicarbonate
4 surgical site right hip wounds, bilateral heel wound, generalized buttock wound
-wounds healing well
Anxiety/depression
- Continue buspirone, venlafaxine, Ativan
Peripheral neuropathy secondary to chemotherapy
Chronic pain syndrome/chronic opiate dependence
- Continue gabapentin adjusted based on CrCl-frequency decreased to BID ,
Fibromyalgia
Hypothyroidism
- Continue levothyroxine
Chronic thrombocytopenia
Rheumatoid arthritis
COPD
Obstructive sleep apnea
History of parotid mass
Full code
DVT prophylaxis�lovenox
Anticipated Discharge: > 48 hours
Subjective/Interval History
-
Date of Service: February 20, 2025
States remains with abdominal pain
Objective Data
-
Labs:
Laboratory Results
02/20/25
07:27
WBC 6.0
Hgb 7.3 L
Hct 21.9 L
Plt Count 89 L
Sodium 141
Potassium 4.2
Chloride 111 H
Carbon Dioxide 21 L
BUN 23 H
Creatinine 1.6 H
Glucose 51 L*
Calcium 9.1
Vital Signs:
Vital Signs
Temp Pulse Resp BP Pulse Ox
97.6 F 64 16 166/73 98
02/20/25 07:45 02/20/25 07:45 02/20/25 07:45 02/20/25 07:45 02/20/25 07:45
I&O
02/19/25 02/20/25 02/21/25
06:59 06:59 06:59
Intake Total 2500 / 2500 1640 / 1640
Output Total 950 / 950 700 / 700
Balance 1550 / 1550 940 / 940
Physical Exam
-
General: Well Nourished, No Apparent Distress and Comfortable
HEENT: Normocephalic, Atraumatic and Anicteric
Respiratory: Clear to Auscultation and Non Labored Respirations; Negative Wheezes, Rales, Rhonchi or Crackles
Cardiac: Regular Rhythm and S1/S2; Negative Murmur, Rub or Calf Tenderness
GI: Soft, Nondistended, Normal Bowel Sounds, Tender (suprapubic, RLQ and LLQ-mild), Peg Tube and Ostomy (with liquid stools noted)
Musculoskeletal: No Clubbing, No Cyanosis and Other (prior toe amputation noted. )
Skin: Warm and Dry
Neuro: Awake, Alert, Oriented and Other (RUE and RLE weakness, dysarthria noted)
Psych: Calm
Data Reviewed
-
Total Time Spent with Patient (in minutes): 55
[2025-02-20] MEDS: DEXTROSE 50% SYRINGE 12.5 GRAMS IV (12:34)
[2025-02-20 13:03] LABS: Glucose - Point of Care 111 mg/dl (70-99)
[2025-02-20 14:43] VITALS: PULSE 67; O2SAT 95
--- NOTE | 2025-02-20 15:08 | PN.CDI ---
CDI
- -
CDI:
Physician Documentation Request
Admit Date: 02/17/25 22:34
Dear Doctor Annie,
02/19 hospitalist progress note states 'Acute infectious/inflammatory enteritis versus low likelihood partial small bowel obstruction. History of recurrent SBO secondary to prior abdominal surgeries '
hospitalist progress note states 'partial small bowel obstruction'
Please clarify the following:
____ - partial small bowel obstruction is a valid diagnosis
____ - partial small bowel obstruction was ruled out
____ - partial small bowel obstruction is still a likely, suspected, probable diagnosis
____ - Other
Use of terms such as suspected, likely, concern for, or probable (associated with a specific diagnosis that is being evaluated, monitored, or treated as if it exists) are acceptable and can be coded in the inpatient setting, when documented at the
time of discharge.
Thank you,
Courtney Ballard RN, BSN
CDI Specialist
tiger text
Please use your independent medical judgment in providing your response.
[2025-02-20 15:34] LABS: Glucose - Point of Care 76 mg/dl (70-99)
[2025-02-20 15:48] VITALS: BMI 31.4
[2025-02-20 16:00] VITALS: BP 172/79
[2025-02-20] MEDS: LOVENOX 40 MG SC (17:22)
[2025-02-20 19:51] LABS: Glucose - Point of Care 87 mg/dl (70-99)
[2025-02-20 23:17] VITALS: BP 155/83
[2025-02-21 00:51] LABS: Glucose - Point of Care 77 mg/dl (70-99)
[2025-02-21] MEDS: D5LR 1000 IV (04:19)
[2025-02-21] MEDS: DILAUDID 1 MG IV ×5 (04:21→21:42)
[2025-02-21] MEDS: SYNTHROID 112 MCG PO (05:30)
[2025-02-21] MEDS: SODIUM BICARBONATE 650 MG PO ×3 (05:30→21:37)
[2025-02-21 06:07] LABS: Glucose - Point of Care 100 mg/dl (70-99)
[2025-02-21 07:48] LABS: % Basophils 0.4 % (0-2); % Eosinophils 5.4 % (0-6); % Immature Granulocytes 0.6 % (0-0.5); % Lymphocytes 11.5 % (20.5-51.1); % Monocytes 8.6 % (1.7-9.3); % Neutrophils 73.5 % (42.2-75.2); Absolute Eosinophils 0.3 10^3/uL (0-0.7); Absolute Lymphocytes 0.6 10^3/uL (1.2-3.4); Absolute Monocytes 0.5 10^3/uL (0.1-0.6); Absolute Neutrophils 3.8 10^3/uL (1.4-6.5); Hematocrit 22.8 % (37.0-47.0); Hemoglobin 7.7 g/dL (12.0-16.0); Mean Corp Hgb Conc. 33.8 g/dL (33.0-37.0); Mean Corpuscular Hgb 30.6 pg (27.0-31.0); Mean Corpuscular Volume 90.5 fL (81.0-99.0); Mean Platelet Volume 8.6 fL (7.4-10.4); Nucleated Red Blood Cells % 0 %; Platelet Count 95 10^3/uL (130-400); Red Blood Cell Count 2.52 10^6/uL (4.20-5.40); Red Cell Dist. Width 15.9 % (11.5-14.5); White Blood Cell Count 5.2 10^3/uL (4.8-10.8)
[2025-02-21 07:50] VITALS: BP 156/78
[2025-02-21 08:33] LABS: Blood Urea Nitrogen 16 mg/dl (7-17); Calcium 9.4 mg/dl (8.4-10.2); Carbon Dioxide 22 mmol/L (22-30); Chloride 107 mmol/L (98-107); Estimated Creatinine Clearance 48 ml/min; Glucose 91 mg/dl (70-99); Sodium 140 mmol/L (135-145); eGFR 39.89
[2025-02-21] MEDS: ATIVAN 0.25 MG PO ×2 (08:48→20:47)
[2025-02-21] MEDS: VITAMIN D3 (cholecalciferol) 25 MCG PO (08:53)
[2025-02-21] MEDS: EFFEXOR 100 MG PO ×2 (08:53→20:47)
[2025-02-21] MEDS: NEURONTIN 300 MG PO ×2 (08:54→20:47)
[2025-02-21] MEDS: BUSPAR 10 MG PO ×2 (08:54→20:47)
[2025-02-21] MEDS: PROTONIX IV 40 MG IV (08:55)
[2025-02-21] MEDS: NSS (PRESERVATIVE FREE) 10 ML IV (08:55)
[2025-02-21] MEDS: DICLOFENAC 1% TOPICAL GEL 2 GRAM TOPICAL ×2 (09:10→21:37)
[2025-02-21 12:19] LABS: Glucose - Point of Care 87 mg/dl (70-99)
--- NOTE | 2025-02-21 12:55 | W.PN.HOSP.TC ---
Today's Communication/Plan
-
G-tube to gravity
Remains with abdominal pain
Continue with IV fluids
Ostomy output decreasing however currently n.p.o.
Assessment / Plan
Assessment / Plan
#Partial small bowel obstruction
#History of recurrent SBO secondary to prior abdominal surgeries
#Leukocytosis
CT abdomen pelvis shows mild fluid distention of the small bowel loops in the right side abdomen demonstrate mild wall thickening and surrounding mild mesenteric edema, possibly acute infectious or inflammatory enteritis, partial small bowel
obstruction
N.p.o.
IV fluids.
Zofran, Dilaudid for pain
G tube to gravity. 100 cc of ostomy output
General Surgery following
# Hypoglycemia
-Change fluid to D5 LR. Hypoglycemia protocol. POC stabilized
#Chronic normocytic anemia
#Chronic thrombocytopenia
Recent perioperative blood loss anemia secondary to intramuscular hematoma fracture site
No acute need for transfusion. Hgb at 7.7 mild downtrend also noted. Dilutional from IV fluids. Monitor for now.
#RHETT on CKD 3B
Creatinine downtrending to 1.5.
Continue sodium bicarbonate
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
Partially obstructing calculus in the distal left ureter
Appears unchanged from previous
Cervical cancer status post hysterectomy and radiation
Right femur shaft fracture status post nail fixation on 02/07
-PT eval. Pain control. DVT ppx.
PAD status post fem bypass graft
Continue Plavix
History of CVA
Chronic right hemiparesis secondary to CVA
Chronic dysphagia
On IDDSI 6 with thin liquids as established with speech therapist at [facility] facility
Chronic ambulatory dysfunction
CAD
Continue statin
Essential hypertension
- HOLD lisinopril with RHETT
4 surgical site right hip wounds, bilateral heel wound, generalized buttock wound
-wounds healing well
Anxiety/depression
- Continue buspirone, venlafaxine, Ativan
Peripheral neuropathy secondary to chemotherapy
Chronic pain syndrome/chronic opiate dependence
- Continue gabapentin adjusted based on CrCl-frequency decreased to BID ,
Fibromyalgia
Hypothyroidism
- Continue levothyroxine
Chronic thrombocytopenia
Rheumatoid arthritis
COPD
Obstructive sleep apnea
History of parotid mass
Full code
DVT prophylaxis�lovenox
Anticipated Discharge: > 48 hours
Subjective/Interval History
-
Date of Service: February 21, 2025
States remains with abdominal pain
Having some nausea
Having ostomy output
Objective Data
-
Labs:
Laboratory Results
02/21/25
06:59
WBC 5.2
Hgb 7.7 L
Hct 22.8 L
Plt Count 95 L
Sodium 140
Potassium 4.0
Chloride 107
Carbon Dioxide 22
BUN 16
Creatinine 1.5 H
Glucose 91
Calcium 9.4
Vital Signs:
Vital Signs
Temp Pulse Resp BP Pulse Ox
97.9 F 62 20 156/78 97
02/21/25 07:50 02/21/25 07:50 02/21/25 07:50 02/21/25 07:50 02/21/25 07:50
I&O
02/20/25 02/21/25 02/22/25
06:59 06:59 06:59
Intake Total 1640 / 1640 1690 / 1690
Output Total 700 / 700 800 / 800
Balance 940 / 940 890 / 890
Physical Exam
-
General: Well Nourished, No Apparent Distress and Comfortable
HEENT: Normocephalic, Atraumatic and Anicteric
Respiratory: Clear to Auscultation and Non Labored Respirations; Negative Wheezes, Rales, Rhonchi or Crackles
Cardiac: Regular Rhythm and S1/S2; Negative Murmur, Rub or Calf Tenderness
GI: Soft, Nondistended, Normal Bowel Sounds, Tender (suprapubic, RLQ and LLQ-mild same compared to last 48 hours), Peg Tube and Ostomy (with liquid stools noted)
Musculoskeletal: No Clubbing, No Cyanosis and Other (prior toe amputation noted. )
Skin: Warm and Dry
Neuro: Awake, Alert, Oriented and Other (RUE and RLE weakness, dysarthria noted)
Psych: Calm
Data Reviewed
-
Total Time Spent with Patient (in minutes): 55
--- NOTE | 2025-02-21 13:30 | W.PN.GS2 ---
Addendum entered and electronically signed by Lamberto Cosme MD 02/21/25 19:31:
I saw and examined the patient.
The STATISTICAL ANALYST's note was reviewed and I agree with the note.
Original Note:
Today's Communication / Plan
-
Clamp G-tube. Ok for sips of clears
Assessment / Plan
-
59F with h/o cervical ca tx with DANIEL/chemo/XRT, radiation colitis with bowel perforation s/p completion colectomy with end ileostomy complicated by parastomal hernia s/p re-siting of end ileostomy to left abdomen, VIHR with unilateral TAR [address] Adkins with multiple admissions for chronic dysmotility and recurrent pSBO. 02/12 DC after right femur nail fixation for fracture on 02/07, now readmitted for vomiting.
CT this presentation with mildly dilated sb loops to right hemiabdomen with mild wall thickening and surrounding edema
AFVSS
Stoma with gas and stool, n/v improved.
No distention on exam
Labs stable
Plan:
Clamp G-tube unless recurrent n/v
Ok for sips and chips
Follow stoma outputs
Analgesics/IVF as per primary team
Continue to follow with conservative/nonoperative measures at this time. ?SBFT study on Sunday to reevaluate
Subjective Data
-
Date of Service: February 21, 2025
Patient seen and examined at bedside with Dr. Cosme. Denies active n/v. some nausea intermittently. Abd pain persists and is located at chronic pain site (lower midline abd).
Objective Data
-
Intake and Output
02/20/25 02/21/25 02/22/25
06:59 06:59 06:59
Intake Total 1640 / 1640 1690 / 1690
Output Total 700 / 700 800 / 800
Balance 940 / 940 890 / 890
Intake:
Oral fluids 440 / 440
IV fluids (Total) 1200 / 1200 1600 / 1600
Amount instilled into GI Tube (
Total)
Gastrostomy
Output:
Liquid stool amount 200 / 200 100 / 100
Ileostomy 200 / 200 100 / 100
Urine, Voided 500 / 500 700 / 700
Vital Signs
Temp Pulse Resp BP Pulse Ox
97.9 F 62 20 156/78 97
02/21/25 07:50 02/21/25 07:50 02/21/25 07:50 02/21/25 07:50 02/21/25 07:50
Lab Results
02/21/25 06:59
02/21/25 06:59
Calcium 9.4 mg/dl (8.4-10.2) 02/21/25 06:59
Total Bilirubin 0.8 mg/dl (0.2-1.3) 02/18/25 05:48
AST 13 U/L (14-36) L 02/18/25 05:48
ALT < 10 U/L (0-35) 02/18/25 05:48
Alkaline Phosphatase 76 U/L (38-126) 02/18/25 05:48
Total Protein 6.5 g/dl (6.3-8.2) 02/18/25 05:48
Albumin 3.2 g/dl (3.5-5.0) L 02/18/25 05:48
Physical Exam
-
NAD AAOx3
ABD: soft, ND, localizing tenderness to mid abd but no rebound/guarding
left sided ileostomy -> + stool
Gtube present, bile tinged water in collection device
--- NOTE | 2025-02-21 14:26 | PTCARENOTE ---
Assumed care of pt from previous nurse. Pt with pain to abdomen, managed with prn pain medication. Pt remains npo, tolerating sips and chips. gtube clamped per order, no n/v noted. Call oglesby is within reach, pt rings amanda. will cont to monitor.
[2025-02-21 15:35] VITALS: BP 134/77
[2025-02-21] MEDS: DICLOFENAC 1% TOPICAL GEL TOPICAL (16:10)
[2025-02-21] MEDS: LOVENOX 40 MG SC (17:43)
[2025-02-21 19:33] LABS: Glucose - Point of Care 88 mg/dl (70-99)
[2025-02-21 23:00] VITALS: BP 123/78
[2025-02-22] MEDS: D5LR 1000 IV ×2 (00:22→14:08)
[2025-02-22 01:08] LABS: Glucose - Point of Care 97 mg/dl (70-99)
[2025-02-22] MEDS: DILAUDID 1 MG IV ×6 (01:44→22:03)
[2025-02-22] MEDS: SYNTHROID 112 MCG PO (05:51)
[2025-02-22] MEDS: SODIUM BICARBONATE 650 MG PO ×2 (05:51→14:08)
[2025-02-22 06:03] LABS: Glucose - Point of Care 98 mg/dl (70-99)
[2025-02-22 07:04] LABS: % Basophils 0.2 % (0-2); % Eosinophils 6.6 % (0-6); % Immature Granulocytes 0.2 % (0-0.5); % Lymphocytes 13.4 % (20.5-51.1); % Monocytes 8.2 % (1.7-9.3); % Neutrophils 71.4 % (42.2-75.2); Absolute Eosinophils 0.3 10^3/uL (0-0.7); Absolute Lymphocytes 0.6 10^3/uL (1.2-3.4); Absolute Monocytes 0.4 10^3/uL (0.1-0.6); Hematocrit 22.3 % (37.0-47.0); Hemoglobin 7.5 g/dL (12.0-16.0); Mean Corp Hgb Conc. 33.6 g/dL (33.0-37.0); Mean Corpuscular Hgb 30.6 pg (27.0-31.0); Mean Platelet Volume 8.7 fL (7.4-10.4); Nucleated Red Blood Cells % 0 %; Platelet Count 84 10^3/uL (130-400); Red Blood Cell Count 2.45 10^6/uL (4.20-5.40); Red Cell Dist. Width 16.4 % (11.5-14.5); White Blood Cell Count 4.3 10^3/uL (4.8-10.8)
[2025-02-22 07:27] LABS: Blood Urea Nitrogen 13 mg/dl (7-17); Calcium 9.6 mg/dl (8.4-10.2); Carbon Dioxide 26 mmol/L (22-30); Chloride 107 mmol/L (98-107); Estimated Creatinine Clearance 48 ml/min; Glucose 90 mg/dl (70-99); Potassium 3.8 mmol/L (3.5-5.1); Sodium 140 mmol/L (135-145); eGFR 39.89
[2025-02-22 07:45] VITALS: BP 138/72
[2025-02-22] MEDS: VITAMIN D3 (cholecalciferol) 25 MCG PO (09:48)
[2025-02-22] MEDS: NEURONTIN 300 MG PO ×2 (09:48→20:46)
[2025-02-22] MEDS: EFFEXOR 100 MG PO ×2 (09:48→20:46)
[2025-02-22] MEDS: DICLOFENAC 1% TOPICAL GEL 2 GRAM TOPICAL ×2 (09:48→21:58)
[2025-02-22] MEDS: BUSPAR 10 MG PO ×2 (09:49→20:46)
[2025-02-22] MEDS: NSS (PRESERVATIVE FREE) 10 ML IV (09:49)
[2025-02-22] MEDS: PROTONIX IV 40 MG IV (09:49)
[2025-02-22] MEDS: ATIVAN 0.25 MG PO ×2 (09:59→20:46)
[2025-02-22] MEDS: ZOFRAN 4 MG IV (10:19)
--- NOTE | 2025-02-22 11:07 | W.PN.GS2 ---
Addendum entered and electronically signed by Lamberto Cosme MD 02/22/25 16:06:
I saw and examined the patient.
The HOT BLASTER's note was reviewed and I agree with the note.
Comment:
Complaining of nausea and abdominal discomfort, but having ostomy function. Requesting G-tube to be placed back to gravity.
AFVSS, ABD soft, nondistended, mildly tender, no rebound or guarding, ostomy pink and productive of stool
WBC 4.3
�Continue n.p.o. with sips; if no improvement, recommend SBFT tomorrow
�G-tube to gravity
Original Note:
Today's Communication / Plan
-
SBFT in AM
Assessment / Plan
-
59F with h/o cervical ca tx with DANIEL/chemo/XRT, radiation colitis with bowel perforation s/p completion colectomy with end ileostomy complicated by parastomal hernia s/p re-siting of end ileostomy to left abdomen, VIHR with unilateral TAR [address] Adkins with multiple admissions for chronic dysmotility and recurrent pSBO. / DC after right femur nail fixation for fracture on 02/07, now readmitted for vomiting.
CT this presentation with mildly dilated sb loops to right hemiabdomen with mild wall thickening and surrounding edema
AFVSS
Stoma with gas and stool, n/v improved.
No distention on exam
Labs stable
Plan:
Return g-tube to gravity drainage
Ok for sips and chips
Follow stoma outputs
Analgesics/IVF as per primary team
Will plan SBFT in am
Subjective Data
-
Date of Service: February 22, 2025
Patient seen and examined at bedside with Dr. Cosme. Denies vomiting but more nauseated with g-tube clamped. C/O bloating. Abdominal pain persists.
Objective Data
-
Intake and Output
02/21/25 02/22/25 02/23/25
06:59 06:59 06:59
Intake Total 1690 / 1690 1100 / 1100
Output Total 800 / 800 990 / 990
Balance 890 / 890 110 / 110
Intake:
Oral fluids 480 / 480
IV fluids (Total) 1600 / 1600 560 / 560
Amount instilled into GI Tube ( 90 / 90 60 / 60
Total)
Gastrostomy 90 / 90 60 / 60
Output:
Liquid stool amount 100 / 100 150 / 150
Ileostomy 100 / 100 150 / 150
Gastrointestinal tube output ( 140 / 140
Total)
Gastrostomy 140 / 140
Urine, Voided 700 / 700 700 / 700
Vital Signs
Temp Pulse Resp BP Pulse Ox
97.9 F 59 18 138/72 99
02/22/25 07:45 02/22/25 07:45 02/22/25 07:45 02/22/25 07:45 02/22/25 07:45
Lab Results
02/22/25 06:42
02/22/25 06:42
Calcium 9.6 mg/dl (8.4-10.2) 02/22/25 06:42
Total Bilirubin 0.8 mg/dl (0.2-1.3) 02/18/25 05:48
AST 13 U/L (14-36) L 02/18/25 05:48
ALT < 10 U/L (0-35) 02/18/25 05:48
Alkaline Phosphatase 76 U/L (38-126) 02/18/25 05:48
Total Protein 6.5 g/dl (6.3-8.2) 02/18/25 05:48
Albumin 3.2 g/dl (3.5-5.0) L 02/18/25 05:48
Physical Exam
-
NAD AAOx3
ABD: soft, ND, localizing tenderness to mid abd but no rebound/guarding
left sided ileostomy -> + stool
Gtube present, clamped
--- NOTE | 2025-02-22 12:19 | W.PN.HOSP.TC ---
Today's Communication/Plan
-
Continue with conservative management
Continue with IV fluids
Pain control
Continue to trend CBC and creatinine
SBFT in am
Assessment / Plan
Assessment / Plan
#Partial small bowel obstruction
#History of recurrent SBO secondary to prior abdominal surgeries
#Leukocytosis
CT abdomen pelvis shows mild fluid distention of the small bowel loops in the right side abdomen demonstrate mild wall thickening and surrounding mild mesenteric edema, possibly acute infectious or inflammatory enteritis, partial small bowel
obstruction
N.p.o.
IV fluids.
Zofran, Dilaudid for pain
G tube to gravity. 150 cc of ostomy output
SBFT in am
General Surgery following
# Hypoglycemia
-Change fluid to D5 LR. Hypoglycemia protocol. POC stabilized
#Chronic normocytic anemia
#Chronic thrombocytopenia
Recent perioperative blood loss anemia secondary to intramuscular hematoma fracture site
No acute need for transfusion. Hgb at 7.5 mild downtrend also noted. Dilutional from IV fluids. Monitor for now.
#RHETT on CKD 3B
Creatinine downtrending to 1.5.
Continue sodium bicarbonate
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
Partially obstructing calculus in the distal left ureter
Appears unchanged from previous
Cervical cancer status post hysterectomy and radiation
Right femur shaft fracture status post nail fixation on 02/07
-PT eval. Pain control. DVT ppx.
PAD status post fem bypass graft
Continue Plavix
History of CVA
Chronic right hemiparesis secondary to CVA
Chronic dysphagia
On IDDSI 6 with thin liquids as established with speech therapist at [facility] facility
Chronic ambulatory dysfunction
CAD
Continue statin
Essential hypertension
- HOLD lisinopril with RHETT
4 surgical site right hip wounds, bilateral heel wound, generalized buttock wound
-wounds healing well
Anxiety/depression
- Continue buspirone, venlafaxine, Ativan
Peripheral neuropathy secondary to chemotherapy
Chronic pain syndrome/chronic opiate dependence
- Continue gabapentin adjusted based on CrCl-frequency decreased to BID ,
Fibromyalgia
Hypothyroidism
- Continue levothyroxine
Chronic thrombocytopenia
Rheumatoid arthritis
COPD
Obstructive sleep apnea
History of parotid mass
Full code
DVT prophylaxis�lovenox
Updated spouse Parrish over the phone in details. All questions were answered to his satisfaction. He was appreciative of update.
Anticipated Discharge: > 48 hours
Subjective/Interval History
-
Date of Service: February 22, 2025
States remains with abdominal pain
Objective Data
-
Labs:
Laboratory Results
02/22/25 02/22/25
06:42 12:18
WBC 4.3 L Cancelled
Hgb 7.5 L Cancelled
Hct 22.3 L Cancelled
Plt Count 84 L Cancelled
Sodium 140
Potassium 3.8
Chloride 107
Carbon Dioxide 26
BUN 13
Creatinine 1.5 H
Glucose 90
Calcium 9.6
Vital Signs:
Vital Signs
Temp Pulse Resp BP Pulse Ox
97.9 F 59 18 138/72 99
02/22/25 07:45 02/22/25 07:45 02/22/25 07:45 02/22/25 07:45 02/22/25 07:45
I&O
02/21/25 02/22/25 02/23/25
06:59 06:59 06:59
Intake Total 1690 / 1690 1100 / 1100
Output Total 800 / 800 990 / 990
Balance 890 / 890 110 / 110
Physical Exam
-
General: Well Nourished, No Apparent Distress and Comfortable
HEENT: Normocephalic, Atraumatic and Anicteric
Respiratory: Clear to Auscultation and Non Labored Respirations; Negative Wheezes, Rales, Rhonchi or Crackles
Cardiac: Regular Rhythm and S1/S2; Negative Murmur, Rub or Calf Tenderness
GI: Soft, Nondistended, Normal Bowel Sounds, Tender (suprapubic, RLQ and LLQ-mild same compared to last 48 hours), Peg Tube and Ostomy (with liquid stools noted)
Musculoskeletal: No Clubbing, No Cyanosis and Other (prior toe amputation noted. )
Skin: Warm and Dry
Neuro: Awake, Alert, Oriented and Other (RUE and RLE weakness, dysarthria noted)
Psych: Calm
Data Reviewed
-
Total Time Spent with Patient (in minutes): 55
[2025-02-22] MEDS: D5LR IV (12:35)
[2025-02-22 13:49] LABS: Glucose - Point of Care 96 mg/dl (70-99)
[2025-02-22 15:50] VITALS: BP 126/64
[2025-02-22] MEDS: DICLOFENAC 1% TOPICAL GEL TOPICAL (16:34)
[2025-02-22] MEDS: LOVENOX 40 MG SC (17:10)
[2025-02-22 18:04] LABS: Glucose - Point of Care 94 mg/dl (70-99)
[2025-02-22 23:00] VITALS: BP 115/63
[2025-02-23 00:07] LABS: Glucose - Point of Care 99 mg/dl (70-99)
[2025-02-23] MEDS: DILAUDID 1 MG IV ×5 (02:03→20:42)
[2025-02-23] MEDS: D5LR 1000 IV ×2 (03:53→12:23)
[2025-02-23 05:54] LABS: Glucose - Point of Care 97 mg/dl (70-99)
[2025-02-23] MEDS: SYNTHROID 112 MCG PO (06:01)
[2025-02-23 06:06] VITALS: BMI 31.8
[2025-02-23 07:40] VITALS: BP 149/77
[2025-02-23] MEDS: ATIVAN 0.25 MG PO ×2 (09:05→20:30)
[2025-02-23] MEDS: NEURONTIN 300 MG PO ×2 (09:06→20:31)
[2025-02-23] MEDS: PROTONIX IV 40 MG IV (09:06)
[2025-02-23] MEDS: VITAMIN D3 (cholecalciferol) 25 MCG PO (09:08)
[2025-02-23] MEDS: EFFEXOR 100 MG PO ×2 (09:09→20:31)
[2025-02-23] MEDS: NSS (PRESERVATIVE FREE) 10 ML IV (09:09)
[2025-02-23] MEDS: BUSPAR 10 MG PO ×2 (09:09→20:31)
[2025-02-23] MEDS: DICLOFENAC 1% TOPICAL GEL 2 GRAM TOPICAL ×3 (09:10→20:32)
--- NOTE | 2025-02-23 09:32 | W.PN.HOSP.TC ---
Today's Communication/Plan
-
Clear liquid diet
Stop IV fluids
Assessment / Plan
Assessment / Plan
Gen-AAOx3, NAD
HEENT-NC, AT, anicteric, clear oral mm
Neck-supple
CV-reg, no M, +S1/S2
Lungs-clear B/L
Abd-soft, NT, ND, ostomy, PEG tube
Ext-no edema
Musculoskeletal-no cyanosis, clubbing
Skin-warm and dry
Neuro-grossly non-focal
Psych-calm, cooperative
Partial small bowel obstruction
History of recurrent SBO secondary to prior abdominal surgeries
CT abdomen pelvis shows mild fluid distention of the small bowel loops in the right side abdomen demonstrate mild wall thickening and surrounding mild mesenteric edema, possibly acute infectious or inflammatory enteritis, partial small bowel
obstruction.
Small bowel x-ray 02/23 negative for obstruction. Clear liquid diet started by surgical service.
Hypoglycemia -improved. Stop IV fluids now that clear liquid diet started.
Chronic normocytic anemia
Chronic thrombocytopenia
Recent perioperative blood loss anemia secondary to intramuscular hematoma fracture site
No acute need for transfusion. Hgb spontaneously improved to 8.9 today.
RHETT on CKD 3B -RHETT likely due to volume depletion. Improved.
Continue sodium bicarbonate
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
Partially obstructing calculus in the distal left ureter
Appears unchanged from previous
Cervical cancer status post hysterectomy and radiation
Right femur shaft fracture status post nail fixation on 02/07
-PT eval. Pain control. DVT ppx.
PAD, status post fem bypass graft -Plavix on hold.
Chronic right hemiparesis secondary to CVA -has been nonambulatory since the stroke in August 2024.
Chronic dysphagia
On IDDSI 6 with thin liquids as established with speech therapist at [facility] facility
Chronic ambulatory dysfunction
CAD
Continue statin
Essential hypertension
- HOLD lisinopril with RHETT
4 surgical site right hip wounds, bilateral heel wound, generalized buttock wound
-wounds healing well
Anxiety/depression
- Continue buspirone, venlafaxine, Ativan
Peripheral neuropathy secondary to chemotherapy
Chronic pain syndrome/chronic opiate dependence
- Continue gabapentin adjusted based on CrCl-frequency decreased to BID ,
Fibromyalgia
Hypothyroidism
- Continue levothyroxine
Rheumatoid arthritis
COPD without exacerbation
Obstructive sleep apnea
History of parotid mass
Full code
DVT prophylaxis�lovenox
Dispo -SNF when medically stable.
Anticipated Discharge: Within 24 hours
Subjective/Interval History
-
Date of Service: February 23, 2025
Patient seen and examined. Complaining of some abdominal discomfort. Denies nausea.
Objective Data
-
Labs:
Laboratory Results
02/23/25
06:00
WBC Pending
Hgb Pending
Hct Pending
Plt Count Pending
Sodium Pending
Potassium Pending
Chloride Pending
Carbon Dioxide Pending
BUN Pending
Creatinine Pending
Glucose Pending
Calcium Pending
Vital Signs:
Vital Signs
Temp Pulse Resp BP Pulse Ox
98.2 F 64 16 149/77 98
02/23/25 07:40 02/23/25 07:40 02/23/25 07:40 02/23/25 07:40 02/23/25 07:40
I&O
02/22/25 02/23/25 02/24/25
06:59 06:59 06:59
Intake Total 1100 / 1100 2700 / 2700
Output Total 990 / 990 1100 / 1100
Balance 110 / 110 1600 / 1600
Review of Systems
-
History Source: Patient
All other systems: Reviewed and negative
[2025-02-23 12:27] LABS: Glucose - Point of Care 88 mg/dl (70-99)
[2025-02-23 12:48] LABS: % Basophils 0.2 % (0-2); % Eosinophils 6.6 % (0-6); % Immature Granulocytes 0.6 % (0-0.5); % Lymphocytes 10.7 % (20.5-51.1); % Monocytes 7.7 % (1.7-9.3); % Neutrophils 74.2 % (42.2-75.2); Absolute Eosinophils 0.3 10^3/uL (0-0.7); Absolute Lymphocytes 0.5 10^3/uL (1.2-3.4); Absolute Monocytes 0.4 10^3/uL (0.1-0.6); Absolute Neutrophils 3.5 10^3/uL (1.4-6.5); Hematocrit 27.3 % (37.0-47.0); Hemoglobin 8.9 g/dL (12.0-16.0); Mean Corp Hgb Conc. 32.6 g/dL (33.0-37.0); Mean Corpuscular Hgb 30.7 pg (27.0-31.0); Mean Corpuscular Volume 94.1 fL (81.0-99.0); Mean Platelet Volume 8.3 fL (7.4-10.4); Nucleated Red Blood Cells % 0 %; Platelet Count 92 10^3/uL (130-400); Red Cell Dist. Width 16.6 % (11.5-14.5); White Blood Cell Count 4.7 10^3/uL (4.8-10.8)
[2025-02-23 13:17] LABS: Blood Urea Nitrogen 10 mg/dl (7-17); Calcium 9.8 mg/dl (8.4-10.2); Carbon Dioxide 29 mmol/L (22-30); Chloride 104 mmol/L (98-107); Estimated Creatinine Clearance 43 ml/min; Glucose 97 mg/dl (70-99); Potassium 3.8 mmol/L (3.5-5.1); Sodium 141 mmol/L (135-145); eGFR 34.33
--- NOTE | 2025-02-23 14:43 | CM ---
Chart reviewed. Therapy rec skilled rehab
Patient is a LTC resident at [facility]. Updated clinicals sent via [employer]
Plan: Return to [facility] when stable
[2025-02-23 15:40] VITALS: BP 145/81
[2025-02-23 17:01] VITALS: BP 145/81; PULSE 60
[2025-02-23] MEDS: LOVENOX 40 MG SC (17:32)
[2025-02-23 18:34] LABS: Glucose - Point of Care 110 mg/dl (70-99)
[2025-02-23 21:56] LABS: Glucose - Point of Care 87 mg/dl (70-99)
[2025-02-23 23:55] VITALS: BP 121/77
[2025-02-24] MEDS: SYNTHROID 112 MCG PO (05:39)
--- NOTE | 2025-02-24 08:00 | W.PN.GS2 ---
Today's Communication / Plan
-
-- Trial of fulls
Assessment / Plan
-
59F with h/o cervical ca tx with DANIEL/chemo/XRT, radiation colitis with bowel perforation s/p completion colectomy with end ileostomy complicated by parastomal hernia s/p re-siting of end ileostomy to left abdomen, VIHR with unilateral TAR [address] Adkins with multiple admissions for chronic dysmotility and recurrent pSBO. 02/12 DC after right femur nail fixation for fracture on 02/07, now readmitted for vomiting.
CT this presentation with mildly dilated sb loops to right hemiabdomen with mild wall thickening and surrounding edema
SBFT with no evidence of obstruction and contrast prog to ostomy in 60 min
AFVSS
Stoma with gas and stool, n/v improved.
No distention on exam
Labs stable
Difficult situation with questionable role of surgical intervention. 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 Most recent SBFT shows contrast progression to the stoma within
60 minutes without significant SP dilation. Surgical intervention exposes her to risks of bowel injury and hernia formation with questionable benefit as no clear transition point. She likely has diffuse small bowel adhesions as well as a motility
issue which will be difficult to surgically correct in a durable manner.
Plan:
-- Trial of fulls
-- G-tube to gravity drainage PRN
-- No plans for surgical intervention at this time
Subjective Data
-
Date of Service: February 24, 2025
Sleeping comfortably. No reports or complaints of worsening abdominal pain. No nausea or vomiting. Continues to have ostomy output.
Objective Data
-
Intake and Output
02/23/25 02/24/25 02/25/25
06:59 06:59 06:59
Intake Total 2700 / 2700 1860 / 1860
Output Total 1100 / 1100 2049
Balance 1600 / 1600 -190 / -190
Intake:
Oral fluids 720 / 720 1800 / 1800
IV fluids (Total) 1920 / 1920
Amount instilled into GI Tube ( 60 / 60 60 / 60
Total)
Gastrostomy 60 / 60 60 / 60
Output:
Liquid stool amount 300 / 300 1100 / 1100
Ileostomy 300 / 300 1100 / 1100
Gastrointestinal tube output ( 350 / 350 950 / 950
Total)
Gastrostomy 350 / 350 950 / 950
Urine, Voided 450 / 450
Other:
How many times incontinent 1
MODERATE amount urine
How many times incontinent 1
SATURATED amount urine
Vital Signs
Temp Pulse Resp BP Pulse Ox
97.2 F 65 18 121/77 98
02/23/25 23:55 02/23/25 23:55 02/23/25 23:55 02/23/25 23:55 02/23/25 23:55
Lab Results
02/23/25 12:24
02/23/25 12:24
Calcium 9.8 mg/dl (8.4-10.2) 02/23/25 12:24
Total Bilirubin 0.8 mg/dl (0.2-1.3) 02/18/25 05:48
AST 13 U/L (14-36) L 02/18/25 05:48
ALT < 10 U/L (0-35) 02/18/25 05:48
Alkaline Phosphatase 76 U/L (38-126) 02/18/25 05:48
Total Protein 6.5 g/dl (6.3-8.2) 02/18/25 05:48
Albumin 3.2 g/dl (3.5-5.0) L 02/18/25 05:48
Physical Exam
-
Gen: NAD
Abd: soft, obese, minimal tenderness, ND, non-peritoneal, G-tube with bilious output, ostomy with liquid stool
[2025-02-24 08:17] LABS: Glucose - Point of Care 103 mg/dl (70-99)
[2025-02-24 08:29] VITALS: BP 159/86
[2025-02-24] MEDS: ATIVAN 0.25 MG PO ×2 (09:09→20:04)
[2025-02-24] MEDS: EFFEXOR 100 MG PO ×2 (09:11→20:03)
[2025-02-24] MEDS: VITAMIN D3 (cholecalciferol) 25 MCG PO (09:11)
[2025-02-24] MEDS: NEURONTIN 300 MG PO ×2 (09:11→20:02)
[2025-02-24] MEDS: NSS (PRESERVATIVE FREE) 10 ML IV (09:11)
[2025-02-24] MEDS: PROTONIX IV 40 MG IV (09:11)
[2025-02-24] MEDS: BUSPAR 10 MG PO ×2 (09:12→20:03)
[2025-02-24] MEDS: DICLOFENAC 1% TOPICAL GEL 2 GRAM TOPICAL ×3 (09:21→21:44)
[2025-02-24] MEDS: DILAUDID 1 MG IV ×4 (09:25→21:40)
--- NOTE | 2025-02-24 10:08 | W.PN.HOSP.TC ---
Addendum entered and electronically signed by Allen Mclean DO 02/24/25 13:03:
Documentation complete
Original Note:
Today's Communication/Plan
-
Full liquid diet
Assessment / Plan
Assessment / Plan
Gen-AAOx3, NAD
HEENT-NC, AT, anicteric, clear oral mm
Neck-supple
CV-reg, no M, +S1/S2
Lungs-clear B/L
Abd-soft, NT, ND, ostomy, PEG tube
Ext-no edema
Musculoskeletal-no cyanosis, clubbing
Skin-warm and dry
Neuro-grossly non-focal
Psych-calm, cooperative
Partial small bowel obstruction -likely due to adhesions. General surgery input noted. Advance diet to full liquids. Ostomy putting out liquid stool.
History of recurrent SBO secondary to prior abdominal surgeries
CT abdomen pelvis shows mild fluid distention of the small bowel loops in the right side abdomen demonstrate mild wall thickening and surrounding mild mesenteric edema, possibly acute infectious or inflammatory enteritis, partial small bowel
obstruction.
Small bowel x-ray 02/23 negative for obstruction.
Hypoglycemia -improved.
Chronic normocytic anemia
Chronic thrombocytopenia
Recent perioperative blood loss anemia secondary to intramuscular hematoma fracture site
No acute need for transfusion. Hgb spontaneously improved to 8.9.
RHETT on CKD 3B -RHETT likely due to volume depletion. Improved.
Continue sodium bicarbonate
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
Partially obstructing calculus in the distal left ureter
Appears unchanged from previous
Cervical cancer status post hysterectomy and radiation
Right femur shaft fracture status post nail fixation on 02/07
-PT eval. Pain control. DVT ppx.
PAD, status post fem bypass graft -Plavix on hold.
Chronic right hemiparesis secondary to CVA -has been nonambulatory since the stroke in August 2024.
Chronic dysphagia
On IDDSI 6 with thin liquids as established with speech therapist at [facility] facility
Chronic ambulatory dysfunction
CAD
Continue statin
Essential hypertension
- HOLD lisinopril with RHETT
4 surgical site right hip wounds, bilateral heel wound, generalized buttock wound
-wounds healing well
Anxiety/depression
- Continue buspirone, venlafaxine, Ativan
Peripheral neuropathy secondary to chemotherapy
Chronic pain syndrome/chronic opiate dependence
- Continue gabapentin adjusted based on CrCl-frequency decreased to BID ,
Fibromyalgia
Hypothyroidism
- Continue levothyroxine
Rheumatoid arthritis
COPD without exacerbation
Obstructive sleep apnea
History of parotid mass
Full code
DVT prophylaxis�lovenox
Dispo -SNF when medically stable.
Anticipated Discharge: Within 24 hours
Subjective/Interval History
-
Date of Service: February 24, 2025
Patient seen and examined. Does not have an appetite. Denies significant pain.
Objective Data
-
Vital Signs:
Vital Signs
Temp Pulse Resp BP Pulse Ox
98 F 73 18 159/86 96
02/24/25 08:29 02/24/25 08:29 02/24/25 08:29 02/24/25 08:29 02/24/25 08:29
I&O
02/23/25 02/24/25 02/25/25
06:59 06:59 06:59
Intake Total 2700 / 2700 1860 / 1860
Output Total 1100 / 1100 2049 / 2049
Balance 1600 / 1600 -190 / -190
Review of Systems
-
History Source: Patient
All other systems: Reviewed and negative
--- NOTE | 2025-02-24 11:35 | PN.CDI ---
CDI
- -
CDI:
Physician Documentation Request
Admit Date: 02/17/25 22:34
Dear Doctor Caridad,
Patient admitted for partial small bowel obstruction.
Progress notes include a diagnosis of RHETT
Creatinine results:
02/17/25 02/18/25 02/19/25
16:18 05:48 08:24
Creatinine 2.0 H 2.0 H 1.9 H
02/20/25 02/21/25 02/22/25
07:27 06:59 06:42
Creatinine 1.6 H 1.5 H 1.5 H
02/23/25
12:24
Creatinine 1.7 H
Criteria for RHETT*
1 Increase in serum creatinine by > or = to 0.3 mg/dL (> or = to 26.5 micromol/L) within 48 hours, OR
2 Increase in serum creatinine to > or = to 1.5 times baseline, which is known or presumed to have occurred within 7 days, OR
3 Urine volume < 0.5 nL/kg/hour for six hours
Based on the above information and the recognized standard for RHETT could you please verify this diagnoses is still accurate and reflective of the patient�s condition to ensure quality of the medical record.
Please clarify in the Progress Notes:
�RHETT is/was present and is a clinical diagnosis based on (please include this additional support in the medical record)
�After study RHETT has been ruled out
�Other
Use of terms such as suspected, likely, concern for, or probable (associated with a specific diagnosis that is being evaluated, monitored, or treated as if it exists) are acceptable and can be coded in the inpatient setting, when documented at the
time of discharge.
Thank you,
Courtney Ballard RN BSN
CDI Specialist
tiger text
Please use your independent medical judgment in providing your response.
[2025-02-24 12:02] LABS: Glucose - Point of Care 101 mg/dl (70-99)
[2025-02-24 15:32] VITALS: BP 145/83
[2025-02-24 17:03] LABS: Glucose - Point of Care 171 mg/dl (70-99)
[2025-02-24] MEDS: LOVENOX 40 MG SC (17:50)
[2025-02-24 21:27] LABS: Glucose - Point of Care 79 mg/dl (70-99)
[2025-02-24 23:53] LABS: Glucose - Point of Care 86 mg/dl (70-99)
[2025-02-24 23:55] VITALS: BP 114/94
[2025-02-25] VITALS: BP 120/66
[2025-02-25] MEDS: DILAUDID 1 MG IV ×4 (02:24→19:03)
[2025-02-25] MEDS: SYNTHROID 112 MCG PO (05:11)
[2025-02-25 07:28] LABS: Blood Urea Nitrogen 13 mg/dl (7-17); Calcium 9.3 mg/dl (8.4-10.2); Carbon Dioxide 30 mmol/L (22-30); Chloride 108 mmol/L (98-107); Estimated Creatinine Clearance 36 ml/min; Glucose 76 mg/dl (70-99); Potassium 3.4 mmol/L (3.5-5.1); Sodium 142 mmol/L (135-145); eGFR 28.25
[2025-02-25 07:40] LABS: % Basophils 0.2 % (0-2); % Immature Granulocytes 0.7 % (0-0.5); % Monocytes 10.3 % (1.7-9.3); % Neutrophils 60.8 % (42.2-75.2); Absolute Eosinophils 0.4 10^3/uL (0-0.7); Absolute Lymphocytes 0.9 10^3/uL (1.2-3.4); Absolute Monocytes 0.5 10^3/uL (0.1-0.6); Absolute Neutrophils 2.6 10^3/uL (1.4-6.5); Hematocrit 23.6 % (37.0-47.0); Hemoglobin 7.6 g/dL (12.0-16.0); Mean Corp Hgb Conc. 32.2 g/dL (33.0-37.0); Mean Corpuscular Hgb 30.5 pg (27.0-31.0); Mean Corpuscular Volume 94.8 fL (81.0-99.0); Mean Platelet Volume 8.8 fL (7.4-10.4); Nucleated Red Blood Cells % 0 %; Platelet Count 88 10^3/uL (130-400); Red Blood Cell Count 2.49 10^6/uL (4.20-5.40); Red Cell Dist. Width 17.1 % (11.5-14.5); White Blood Cell Count 4.4 10^3/uL (4.8-10.8)
[2025-02-25 07:45] VITALS: BP 150/76
[2025-02-25] MEDS: ATIVAN 0.25 MG PO ×2 (07:57→20:38)
[2025-02-25] MEDS: NSS (PRESERVATIVE FREE) 10 ML IV (07:59)
[2025-02-25] MEDS: PROTONIX IV 40 MG IV (07:59)
[2025-02-25] MEDS: BUSPAR 10 MG PO ×2 (08:01→20:39)
[2025-02-25] MEDS: DICLOFENAC 1% TOPICAL GEL 2 GRAM TOPICAL ×3 (08:01→22:31)
[2025-02-25] MEDS: EFFEXOR 100 MG PO ×2 (08:01→20:39)
[2025-02-25] MEDS: VITAMIN D3 (cholecalciferol) 25 MCG PO (08:04)
[2025-02-25] MEDS: NEURONTIN 300 MG PO ×2 (08:05→20:39)
[2025-02-25 08:22] LABS: Glucose - Point of Care 78 mg/dl (70-99)
--- NOTE | 2025-02-25 09:49 | W.PN.HOSP.TC ---
Today's Communication/Plan
-
Low residue diet
Assessment / Plan
Assessment / Plan
Gen-AAOx3, NAD
HEENT-NC, AT, anicteric, clear oral mm
Neck-supple
CV-reg, no M, +S1/S2
Lungs-clear B/L
Abd-soft, mild tenderness to palpation in the lower quadrants without guarding, ND, ostomy, PEG tube
Ext-no edema
Musculoskeletal-no cyanosis, clubbing
Skin-warm and dry
Neuro-grossly non-focal
Psych-calm, cooperative
Partial small bowel obstruction -likely due to adhesions. General surgery input noted. Clinically improving. Ostomy putting out liquid stool.
Diet advanced to low residue today by general surgery.
History of recurrent SBO secondary to prior abdominal surgeries
CT abdomen pelvis shows mild fluid distention of the small bowel loops in the right side abdomen demonstrate mild wall thickening and surrounding mild mesenteric edema, possibly acute infectious or inflammatory enteritis, partial small bowel
obstruction.
Small bowel x-ray 02/23 negative for obstruction.
Hypoglycemia -improved.
Chronic normocytic anemia
Chronic thrombocytopenia
Recent perioperative blood loss anemia secondary to intramuscular hematoma fracture site
No acute need for transfusion. Hgb bouncing around but averaging between 7 and 8.
RHETT on CKD 3B -RHETT likely due to volume depletion. Creatinine bouncing around between 1.5 and 2, this is her baseline.
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
Partially obstructing calculus in the distal left ureter
Appears unchanged from previous
Cervical cancer status post hysterectomy and radiation
Right femur shaft fracture status post nail fixation on 02/07. Dr. Foley from orthopedics to remove henny either today or tomorrow.
-PT eval. Pain control. DVT ppx.
PAD, status post fem bypass graft -resume Plavix.
Chronic right hemiparesis secondary to CVA -has been nonambulatory since the stroke in August 2024.
Chronic dysphagia
On IDDSI 6 with thin liquids as established with speech therapist at [facility] facility
Chronic ambulatory dysfunction
CAD
Continue statin
Essential hypertension
- HOLD lisinopril with RHETT
4 surgical site right hip wounds, bilateral heel wound, generalized buttock wound
-wounds healing well
Anxiety/depression
- Continue buspirone, venlafaxine, Ativan
Peripheral neuropathy secondary to chemotherapy
Chronic pain syndrome/chronic opiate dependence
- Continue gabapentin adjusted based on CrCl-frequency decreased to BID ,
Fibromyalgia
Hypothyroidism
- Continue levothyroxine
Rheumatoid arthritis
COPD without exacerbation
Obstructive sleep apnea
History of parotid mass
Full code
DVT prophylaxis�lovenox
Dispo -SNF when medically stable. Hopefully by tomorrow.
Anticipated Discharge: Within 24 hours
Subjective/Interval History
-
Date of Service: February 25, 2025
Patient seen and examined. No new complaints.
Objective Data
-
Labs:
Laboratory Results
02/25/25
06:48
WBC 4.4 L
Hgb 7.6 L
Hct 23.6 L
Plt Count 88 L
Sodium 142
Potassium 3.4 L
Chloride 108 H
Carbon Dioxide 30
BUN 13
Creatinine 2.0 H
Glucose 76
Calcium 9.3
Vital Signs:
Vital Signs
Temp Pulse Resp BP Pulse Ox
97.6 F 57 16 150/76 99
02/25/25 07:45 02/25/25 07:45 02/25/25 07:45 02/25/25 07:45 02/25/25 07:45
I&O
02/24/25 02/25/25 02/26/25
06:59 06:59 06:59
Intake Total 1860 / 1860 1020 / 1020
Output Total 2049 1050 / 1050
Balance -190 / -190 -30 / -30
Review of Systems
-
History Source: Patient
All other systems: Reviewed and negative
--- NOTE | 2025-02-25 10:12 | CM ---
Chart reviewed. Per hospitalist note, hopeful d/c tomorrow to SNF.
[facility] Facility aware patient has skilled rehab needs
Patient will need ambulance at d/c
[facility]
Report: [phone]

Plan: [facility]
[2025-02-25 10:19] LABS: Magnesium 1.5 mg/dl (1.6-2.3)
[2025-02-25] MEDS: KCL 40 MEQ PO (10:43)
[2025-02-25] MEDS: PLAVIX 75 MG PO (10:43)
[2025-02-25 11:16] LABS: Glucose - Point of Care 91 mg/dl (70-99)
[2025-02-25] MEDS: MAGNESIUM SULFATE 50 IV (12:30)
--- NOTE | 2025-02-25 15:44 | W.PN.GS2 ---
Today's Communication / Plan
-
LRD
Assessment / Plan
-
59F with h/o cervical ca tx with DANIEL/chemo/XRT, radiation colitis with bowel perforation s/p completion colectomy with end ileostomy complicated by parastomal hernia s/p re-siting of end ileostomy to left abdomen, VIHR with unilateral TAR [address] Adkins with multiple admissions for chronic dysmotility and recurrent pSBO. 02/12 DC after right femur nail fixation for fracture on 02/07, now readmitted for vomiting.
CT this presentation with mildly dilated sb loops to right hemiabdomen with mild wall thickening and surrounding edema
SBFT with no evidence of obstruction and contrast prog to ostomy in 60 min
AFVSS
Stoma with gas and stool, n/v improved.
No distention on exam
Labs stable
Difficult situation with questionable role of surgical intervention. 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 Most recent SBFT shows contrast progression to the stoma within
60 minutes without significant SP dilation. Surgical intervention exposes her to risks of bowel injury and hernia formation with questionable benefit as no clear transition point. She likely has diffuse small bowel adhesions as well as a motility
issue which will be difficult to surgically correct in a durable manner.
Plan:
-- Adv to LRD
-- G-tube to gravity drainage PRN
-- OK for DC from surgical standpoint
-- Dietary educatin provided
Subjective Data
-
Date of Service: February 25, 2025
AFVSS, noris FLD, stoma functioning, no g-tube drainage
Objective Data
-
Intake and Output
02/24/25 02/25/25 02/26/25
06:59 06:59 06:59
Intake Total 1859 / 1859 1020 / 1020
Output Total 2049 1050 / 1050
Balance -190 / -190 -30 / -30
Intake:
Oral fluids 1800 / 1800 960 / 960
Amount instilled into GI Tube ( 60 / 60 60 / 60
Total)
Gastrostomy 60 / 60 60 / 60
Output:
Liquid stool amount 1100 / 1100 250 / 250
Ileostomy 1100 / 1100 250 / 250
Gastrointestinal tube output ( 950 / 950 425 / 425
Total)
Gastrostomy 950 / 950 425 / 425
Urine, Voided 375 / 375
Other:
How many times incontinent 1
MODERATE amount urine
Vital Signs
Temp Pulse Resp BP Pulse Ox
97.6 F 57 16 150/76 99
02/25/25 07:45 02/25/25 07:45 02/25/25 07:45 02/25/25 07:45 02/25/25 11:24
Lab Results
02/25/25 06:48
02/25/25 06:48
Calcium 9.3 mg/dl (8.4-10.2) 02/25/25 06:48
Magnesium 1.5 mg/dl (1.6-2.3) L 02/25/25 06:48
Total Bilirubin 0.8 mg/dl (0.2-1.3) 02/18/25 05:48
AST 13 U/L (14-36) L 02/18/25 05:48
ALT < 10 U/L (0-35) 02/18/25 05:48
Alkaline Phosphatase 76 U/L (38-126) 02/18/25 05:48
Total Protein 6.5 g/dl (6.3-8.2) 02/18/25 05:48
Albumin 3.2 g/dl (3.5-5.0) L 02/18/25 05:48
Physical Exam
-
Gen: NAD
Abd: soft, nd, no new ttp
Patient has a carrasco catheter: No
Patient has a central line: No
[2025-02-25 15:50] VITALS: BP 135/71
--- NOTE | 2025-02-25 16:23 | PTCARENOTE ---
Per Dr. Estephanie Abreu to see patient 02/26 for staple removal.
[2025-02-25 17:21] LABS: Glucose - Point of Care 88 mg/dl (70-99)
[2025-02-25] MEDS: LOVENOX 30 MG SC (17:36)
[2025-02-25 21:10] LABS: Glucose - Point of Care 102 mg/dl (70-99)
[2025-02-25 23:52] VITALS: BP 109/61
[2025-02-26] MEDS: DILAUDID 1 MG IV ×2 (01:33→06:42)
[2025-02-26] MEDS: SYNTHROID 112 MCG PO (05:18)
[2025-02-26 07:40] VITALS: BP 120/71
[2025-02-26 07:48] LABS: % Basophils 0.4 % (0-2); % Eosinophils 9.3 % (0-6); % Immature Granulocytes 0.6 % (0-0.5); % Lymphocytes 15.9 % (20.5-51.1); % Monocytes 7.9 % (1.7-9.3); % Neutrophils 65.9 % (42.2-75.2); Absolute Eosinophils 0.5 10^3/uL (0-0.7); Absolute Lymphocytes 0.8 10^3/uL (1.2-3.4); Absolute Monocytes 0.4 10^3/uL (0.1-0.6); Absolute Neutrophils 3.4 10^3/uL (1.4-6.5); Hematocrit 26.2 % (37.0-47.0); Hemoglobin 8.5 g/dL (12.0-16.0); Mean Corp Hgb Conc. 32.4 g/dL (33.0-37.0); Mean Corpuscular Hgb 30.7 pg (27.0-31.0); Mean Corpuscular Volume 94.6 fL (81.0-99.0); Nucleated Red Blood Cells % 0 %; Platelet Count 96 10^3/uL (130-400); Red Blood Cell Count 2.77 10^6/uL (4.20-5.40); White Blood Cell Count 5.2 10^3/uL (4.8-10.8)
--- NOTE | 2025-02-26 08:04 | W.PN.UPDATE ---
Update Note
Progress Note Update
Patient seen this morning and henny were removed without difficulty. Steri-strips were placed. Plan for outpatient follow up once deemed medically stable for dc. Patient has been itching, and there are excoriations around her incisions. I
emphasized the importance that she not itch, as this could introduce bacteria and result in infections. Consider antihistamine or topical hydrocortisone/calamine lotion to relieve itching. Orthopedics to sign off. Please reach out with any
additional questions or concerns.
[2025-02-26 08:07] LABS: Glucose - Point of Care 101 mg/dl (70-99)
[2025-02-26 08:15] LABS: Blood Urea Nitrogen 17 mg/dl (7-17); Calcium 9.4 mg/dl (8.4-10.2); Carbon Dioxide 26 mmol/L (22-30); Chloride 106 mmol/L (98-107); Estimated Creatinine Clearance 35 ml/min; Glucose 102 mg/dl (70-99); Sodium 141 mmol/L (135-145); eGFR 26.64
--- NOTE | 2025-02-26 08:53 | WOUNDNOTE ---
[facility] RN note: Patient admitted with SBO. Patient resides at [facility].
See H&P for complete history.
PMH: DANIEL, hx of chemo/XRT, radiation colitis with bowel perforation, s/p complete colectomy with end ileostomy, parastomal hernia, s/p re-siting of end ileostomy to L abdomen, VIHR with unilateral TAR 2021, recurrent SBO, R femoral nail fixation
for fracture 02/07/25, CVA vs TIA. L partial toe amputation.
Wound Location and type/assessment: Patient admitted with: Scratch garza on flanks/buttocks, L medial, posterior and lateral thigh area. Blanchable mild red heels. Patient stated ortho removed her R thigh henny today. R distal knee dressing D+I.
Steri strips intact to R upper anterior thigh and medial and lateral thigh incisions. R great, R 2nd toe and L dorsal 2nd toe scabbed abrasion, Peristoma MASD from ileostomy leakage. Stoma pink, almost flush and functioning for liquid mixed with
small amount of mushy stool.
Appetite: on low residue diet.
Pressure redistribution devices in place: [employer] Accumax. Patient turns with assist of 1. Heels off bed with pillow.
Plan: Ileostomy appliance change using Aubrey wafer # [id number], Angélica seal and Aubrey high output pouch #[id number]. Ostomy supplies left in room. Protective heel foam dressings maintained. Silicone foam changed on L outer buttocks and L posterior
thigh. Silicone foam maintained on L medial thigh. Patient turned to L semi side lying position. Heels off bed with pillow and air chair cushion. Petroleum barrier ointment applied to back/buttocks/flank, thigh scratch garza and dry skin. Discussed
with WILLIAM Botello who will apply a static air overlay if patient not discharged today.
Confirm order for Aquaphor ointment for dry skin/scratch garza from Dr. Mclean and updated nurse.
Care plan to be updated and will follow peripherally as needed. Nursing can assist patient with ostomy appliance changes.
Note to case management of equipment requested for discharge: Air mattress at [facility] if not already in place.
[2025-02-26] MEDS: ATIVAN 0.25 MG PO (09:07)
--- NOTE | 2025-02-26 09:15 | WOUNDNOTE ---
L 3RD TOE
--- NOTE | 2025-02-26 09:15 | WOUNDNOTE ---
L THIGH (INNER UPPER)
--- NOTE | 2025-02-26 09:16 | WOUNDNOTE ---
R THIGH/HIP (LATERAL)
[2025-02-26] MEDS: DICLOFENAC 1% TOPICAL GEL 2 GRAM TOPICAL (09:20)
[2025-02-26] MEDS: BUSPAR 10 MG PO (09:20)
[2025-02-26] MEDS: EFFEXOR 100 MG PO (09:21)
[2025-02-26] MEDS: PROTONIX 40 MG PO (09:21)
[2025-02-26] MEDS: NEURONTIN 300 MG PO (09:21)
[2025-02-26] MEDS: PLAVIX 75 MG PO (09:21)
[2025-02-26] MEDS: VITAMIN D3 (cholecalciferol) 25 MCG PO (09:22)
[2025-02-26] MEDS: ROXICODONE 5 MG PO (09:43)
[2025-02-26 10:19] VITALS: BP 120/71
--- NOTE | 2025-02-26 10:38 | W.PN.HOSP.TC ---
Today's Communication/Plan
-
Discharge
Assessment / Plan
Assessment / Plan
Gen-AAOx3, NAD
HEENT-NC, AT, anicteric, clear oral mm
Neck-supple
CV-reg, no M, +S1/S2
Lungs-clear B/L
Abd-soft, mild tenderness to palpation in the lower quadrants without guarding, ND, ostomy, PEG tube
Ext-no edema
Musculoskeletal-no cyanosis, clubbing
Skin-warm and dry
Neuro-grossly non-focal
Psych-calm, cooperative
Partial small bowel obstruction -likely due to adhesions. General surgery input noted. Clinically improving. Ostomy putting out liquid stool.
Tolerating low residue diet. Surgical service recommends indefinitely low residue diet on discharge.
History of recurrent SBO secondary to prior abdominal surgeries
CT abdomen pelvis shows mild fluid distention of the small bowel loops in the right side abdomen demonstrate mild wall thickening and surrounding mild mesenteric edema, possibly acute infectious or inflammatory enteritis, partial small bowel
obstruction.
Small bowel x-ray 02/23 negative for obstruction.
G-tube has been to drainage. Patient states she has not required the G-tube for the past year and the [facility] is requesting that [facility] remove it. I spoke with Dr. Dumont and it will be a difficult decision regarding keeping it in versus removing
it. The advantage of keeping the G-tube is in is that it can help decompress her bowels if she has a recurrence of bowel obstruction in the future. Given that she has a high risk of recurrent bowel obstruction, I favor keeping the tube in.
Hypoglycemia -improved.
Chronic normocytic anemia
Chronic thrombocytopenia
Recent perioperative blood loss anemia secondary to intramuscular hematoma fracture site
No acute need for transfusion. Hgb bouncing around but averaging between 7 and 8.
RHETT on CKD 3B -RHETT likely due to volume depletion. Creatinine bouncing around between 1.5 and 2, this is her baseline.
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
Partially obstructing calculus in the distal left ureter
Appears unchanged from previous
Cervical cancer status post hysterectomy and radiation
Right femur shaft fracture status post nail fixation on 02/07. Dr. Foley from orthopedics removed henny.
-PT eval. Pain control. DVT ppx.
PAD, status post fem bypass graft -resume Plavix.
Chronic right hemiparesis secondary to CVA -has been nonambulatory since the stroke in August 2024.
Chronic dysphagia
On IDDSI 6 with thin liquids as established with speech therapist at [facility] facility
Chronic ambulatory dysfunction
CAD
Continue statin
Essential hypertension
- HOLD lisinopril with RHETT
4 surgical site right hip wounds, bilateral heel wound, generalized buttock wound
-wounds healing well
Anxiety/depression
- Continue buspirone, venlafaxine, Ativan
Peripheral neuropathy secondary to chemotherapy
Chronic pain syndrome/chronic opiate dependence
- Continue gabapentin adjusted based on CrCl-frequency decreased to BID ,
Fibromyalgia
Hypothyroidism
- Continue levothyroxine
Rheumatoid arthritis
COPD without exacerbation
Obstructive sleep apnea
History of parotid mass
Full code
DVT prophylaxis�lovenox
Dispo -medically stable [facility] to [facility]. Case management aware.
31 minutes spent in discharge process.
Anticipated Discharge: Today
Subjective/Interval History
-
Date of Service: February 26, 2025
Patient seen and examined. No new complaints.
Objective Data
-
Labs:
Laboratory Results
02/26/25
07:08
WBC 5.2
Hgb 8.5 L
Hct 26.2 L
Plt Count 96 L
Sodium 141
Potassium 4.0
Chloride 106
Carbon Dioxide 26
BUN 17
Creatinine 2.1 H
Glucose 102 H
Calcium 9.4
Vital Signs:
Vital Signs
Temp Pulse Resp BP Pulse Ox
97.5 F 60 16 120/71 95
02/26/25 07:40 02/26/25 07:40 02/26/25 07:40 02/26/25 07:40 02/26/25 07:40
I&O
02/25/25 02/26/25 02/27/25
06:59 06:59 06:59
Intake Total 1020 / 1020 240 / 240
Output Total 1050 / 1050 150 / 150
Balance -30 / -30 90 / 90
Review of Systems
-
History Source: Patient
All other systems: Reviewed and negative
--- NOTE | 2025-02-26 10:58 | W.DS.TRANS ---
DC Summary - Intake Rn
-
Discharge Instructions:
Discharge Diagnosis/Procedures Small bowel obstruction
Diet Low Residue
Additional Diets Patient should stay on low residue diet
indefinitely
Activity As tolerated,With assistance
Driving Restrictions No driving
Bathing Restrictions None
Blood Work BMP, CBC next week
Instructions:
Stand-Alone Forms:
Changes to Home Medications: Yes
Discharge Medications:
DC Medications w/original date entered in [facility]
clopidogrel 75 mg tablet (Plavix) 75 mg PO DAILY Heart Disease/Condition 06/25/23
acetaminophen 325 mg tablet 650 mg PO Q4HPRN PRN mild pain/temp>100F 01/22/24
atorvastatin 40 mg tablet 40 mg PO HS High Cholesterol 01/22/24
cholecalciferol (vitamin D3) 25 mcg (1,000 unit) tablet (Vitamin D3) 25 mcg PO DAILY Supplement 01/22/24
loratadine 10 mg tablet 10 mg PO DAILY Allergies 01/22/24
melatonin 5 mg tablet 5 mg PO HS Sleep 01/22/24
sodium bicarbonate 650 mg tablet 650 mg PO Q8H Electrolyte Repletion 01/22/24
sodium phosphates 19 gram-7 gram/118 mL enema (Fleet Enema) 118 ml NC DAILYPRN PRN if dulcolax is ineffective after 24hrs 01/22/24
bisacodyl 10 mg rectal suppository (Dulcolax (bisacodyl)) 10 mg NC DAILYPRN PRN if no bm aftr mom 07/15/24
diclofenac sodium 1 % topical gel 2 g topical TID left shoulder 07/15/24
famotidine 20 mg tablet 20 mg PO HS Gastrointestinal Issue 07/15/24
buspirone 10 mg tablet 10 mg PO BID Mental Health/Anxiety 01/20/25
magnesium hydroxide 400 mg/5 mL oral suspension (Milk of Magnesia) 30 ml PO [id number] PRN no bm x3 days 01/20/25
levothyroxine 112 mcg tablet 112 mcg PO DAILY 02/06/25
pantoprazole 40 mg tablet,delayed release 40 mg PO DAILY 02/06/25
venlafaxine 100 mg tablet 100 mg PO BID Mental Health/Anxiety 02/18/25
gabapentin 300 mg capsule 300 mg PO BID #0 caps 02/26/25
lorazepam 0.5 mg tablet (Ativan) 0.25 mg (1/2 x 0.5 mg) PO BID Mental Health/Anxiety #4 tabs 02/26/25
oxycodone 5 mg tablet 5 mg PO Q4HPRN PRN mod pain #10 tabs 02/26/25
Home Medication Changes
Hold lisinopril on discharge for RHETT
Pending Results: No
[2025-02-26 11:36] LABS: Glucose - Point of Care 85 mg/dl (70-99)
--- NOTE | 2025-02-26 11:36 | CM ---
Patient medically stable to d/c today
Therapy rec skilled rehab, patient is a LTC resident at [facility]
Met w/ patient bedside, agreeable to d/c today
IMM verbally reviewed, copy given to patient, copy on chart
Ambulance transport, forms on chart
[facility]
Report: [phone]

Plan: [facility] today
[2025-02-26 13:01] VITALS: BP 137/75
== END 2025-02-26 13:49 | DRG 389 ==
LOC: 4 EAST ACU 22:34
PROVIDERS: Emergency Medicine; Hospitalist; ADMITTING PHYSICIAN Hospitalist; ATTENDING PHYSICIAN Hospitalist; CONSULT PHYSICIAN Surgery; EMERGENCY PHYSICIAN Emergency Medicine; FAMILY PHYSICIAN Internal Medicine
DX: K56.51 Intestinal adhesions [bands], with partial obstruction (principal); F11.20 Opioid dependence, uncomplicated; N17.9 Acute kidney failure, unspecified; N13.2 Hydronephrosis with renal and ureteral calculous obstruction; I25.10 Atherosclerotic heart disease of native coronary artery without angina pectoris; E03.9 Hypothyroidism, unspecified; N18.32 Chronic kidney disease, stage 3b; E11.22 Type 2 diabetes mellitus with diabetic chronic kidney disease; F32.A Depression, unspecified; G47.33 Obstructive sleep apnea (adult) (pediatric); I12.9 Hypertensive chronic kidney disease with stage 1 through stage 4 chronic kidney disease, or unspecified chronic kidney disease; M79.7 Fibromyalgia; G89.4 Chronic pain syndrome; F43.10 Post-traumatic stress disorder, unspecified; R26.2 Difficulty in walking, not elsewhere classified; R13.10 Dysphagia, unspecified; D69.6 Thrombocytopenia, unspecified; D64.9 Anemia, unspecified; J44.9 Chronic obstructive pulmonary disease, unspecified; M06.9 Rheumatoid arthritis, unspecified; F41.9 Anxiety disorder, unspecified; F17.210 Nicotine dependence, cigarettes, uncomplicated; G62.0 Drug-induced polyneuropathy; E16.2 Hypoglycemia, unspecified; S72.491D Other fracture of lower end of right femur, subsequent encounter for closed fracture with routine healing; X58.XXXD Exposure to other specified factors, subsequent encounter; Z66 Do not resuscitate; Z86.73 Personal history of transient ischemic attack (TIA), and cerebral infarction without residual deficits; Z85.41 Personal history of malignant neoplasm of cervix uteri; I25.2 Old myocardial infarction; Z92.3 Personal history of irradiation; Z87.19 Personal history of other diseases of the digestive system; Z90.710 Acquired absence of both cervix and uterus; Z95.5 Presence of coronary angioplasty implant and graft; Z93.2 Ileostomy status; Z79.02 Long term (current) use of antithrombotics/antiplatelets; Z79.890 Hormone replacement therapy; Z90.49 Acquired absence of other specified parts of digestive tract; Z91.040 Latex allergy status; Z88.0 Allergy status to penicillin; Z88.2 Allergy status to sulfonamides; Z88.8 Allergy status to other drugs, medicaments and biological substances; Z91.048 Other nonmedicinal substance allergy status; Z93.1 Gastrostomy status
CPT/HCPCS: 73552; 74176; 74250; 80048; 80053; 82962; 83690; 83735; 85025; 87070; 96361; 96374; 96375; 97110; 97163; 97530; 99285; 99406

== ENCOUNTER 2025-03-09 08:50 | Emergency (ER) | payer MEDICARE, OTHER, SELFPAY ==
[2025-03-09] VITALS (7 sets, daily range): BP systolic 94–156; BP diastolic 43–76; BMI 30.6
[2025-03-09 09:16] LABS: % Basophils 0.3 % (0-2); % Eosinophils 6.4 % (0-6); % Immature Granulocytes 0.5 % (0-0.5); % Lymphocytes 10.6 % (20.5-51.1); % Monocytes 7.4 % (1.7-9.3); % Neutrophils 74.8 % (42.2-75.2); Absolute Eosinophils 0.5 10^3/uL (0-0.7); Absolute Lymphocytes 0.8 10^3/uL (1.2-3.4); Absolute Monocytes 0.6 10^3/uL (0.1-0.6); Absolute Neutrophils 5.8 10^3/uL (1.4-6.5); Hematocrit 27.8 % (37.0-47.0); Hemoglobin 9.2 g/dL (12.0-16.0); Mean Corp Hgb Conc. 33.1 g/dL (33.0-37.0); Mean Corpuscular Hgb 31.5 pg (27.0-31.0); Mean Corpuscular Volume 95.2 fL (81.0-99.0); Mean Platelet Volume 9.1 fL (7.4-10.4); Nucleated Red Blood Cells % 0 %; Platelet Count 112 10^3/uL (130-400); Red Blood Cell Count 2.92 10^6/uL (4.20-5.40); Red Cell Dist. Width 16.4 % (11.5-14.5); White Blood Cell Count 7.8 10^3/uL (4.8-10.8)
[2025-03-09 09:33] LABS: ALT (SGPT) < 10 U/L (0-35); AST (SGOT) 12 U/L (14-36); Alkaline Phosphatase 96 U/L (38-126); Blood Urea Nitrogen 30 mg/dl (7-17); Calcium 9.9 mg/dl (8.4-10.2); Carbon Dioxide 21 mmol/L (22-30); Chloride 115 mmol/L (98-107); Estimated Creatinine Clearance 34 ml/min; Glucose 137 mg/dl (70-99); Magnesium 1.8 mg/dl (1.6-2.3); Potassium 3.6 mmol/L (3.5-5.1); Sodium 145 mmol/L (135-145); Total Bilirubin 0.6 mg/dl (0.2-1.3); Total Protein 7.7 g/dl (6.3-8.2)
[2025-03-09] MEDS: ZOFRAN 4 MG IV (09:56)
[2025-03-09] MEDS: MORPHINE SULFATE 4 MG IV ×2 (09:56→14:46)
--- NOTE | 2025-03-09 10:04 | EDRN ---
while Dr. Durbin and this RN were at the pts bedside the pt had a vomiting episode, this RN provided the pt with a vomit bag and nausea and pain meds were administered, this RN noticed that the pts Sp02 dipped to 88% on RA, this RN notified
Gifty and placed the pt on 3L NC
[2025-03-09] MEDS: REGLAN 10 MG IV (10:10)
[2025-03-09] MEDS: BENADRYL 25 MG IV (10:10)
[2025-03-09 10:17] LABS: Urine Albumin 2+ (Neg - Trace); Urine Bilirubin Negative (Negative); Urine Character Clear (Clear); Urine Color Yellow; Urine Glucose Negative (Negative); Urine Ketone Negative (Negative); Urine Leukocyte 3+ (Negative); Urine Nitrite Negative (Negative); Urine Occult Blood 4+ (Negative); Urine Urobilinogen Negative (Neg - 1+)
[2025-03-09 10:41] LABS: Lipase 131 U/L (23-300)
[2025-03-09 10:47] LABS: Urine Mucus Few
[2025-03-09 10:48] LABS: Urine Hyaline Cast 0-2 /LPF (0-2)
[2025-03-09 10:49] LABS: Urine Bacteria Few (Negative); Urine White Cell 60-70 /HPF (0-5); Urine Yeast Few (Negative)
--- NOTE | 2025-03-09 14:32 | ED.GENMED ---
History of Present Illness
General
Chief Complaint: Abdominal Pain
Source: patient
Exam Limitations: none
Time Seen by Provider: 03/09/25 09:31
History of Present Illness
History of Present Illness:
59-year-old female who presents from [facility] who has a history of recurrent small bowel obstructions who presents with abdominal pain and nausea and vomiting. She does have a PEG tube and colostomy. No fevers. No chest pain. No shortness
of breath. Patient states she has been eating normally by mouth.
Past History
Past History
ED Past Medical History: CAD, Cancer (Cervical cancer), CVA (X 2), Fibromyalgia, HTN, NIDDM, [place], Hypothyroidism, Psychiatric (Depression, PTSD) and Other (Rheumatoid arthritis, neuropathy, Colitis from radiation, Cellulitis, Sleep apnea uses CPAP,
Renal calculus, Parotid mass, LVH, GI bleeding, Anemia, PTSD); Negative Asthma or Hypercholesterolemia
ED Past Surgical History: Appendectomy, Bowel resection, Cardiac (Cardiac stent), Gynecological (Cervical Cancer with radiaion and Chemo, Hysterectomy), Orthopedic (Left ankle, left knee surgery X 2, Left wrist surgery, Right knee surgery, ),
Tonsilectomy (adnoids) and Other (Colostomy changed to Ileostomy, Ear tubes, Right parotidectomy, Left great toe and second Toe amputation)
Social History
Tobacco: Smoker (1ppd)
Alcohol: None
Drug: None
Personal:
Living: alf
Employment: Not employed
Family History
Family History: Early CAD (in patient's father)
Phy Exam
Physical Exam
Physical Exam:
CONSTITUTIONAL Patient alert and oriented to person, place and time. Well-appearing. Vital signs reviewed.
HEAD atraumatic, normocephalic.
EYES eyelids normal to inspection, Extraocular muscles intact, Conjunctiva normal, Sclera normal.
NECK normal range of motion, Trachea midline, no jugular venous distention.
RESPIRATORY CHEST No respiratory distress noted, Chest expansion equal, Bilateral breath sounds clear.
CARDIOVASCULAR regular rate and rhythm, Heart sounds normal.
ABDOMEN G-tube noted. Ileostomy noted with stool in the bag. Normal bowel sounds. Mild diffuse tenderness
UPPER EXTREMITY no cyanosis, no edema.
LOWER EXTREMITY no cyanosis, no edema.
SKIN skin warm, dry, and normal in color.
Course
Orders/Labs/Results
Orders:
Orders
03/09/25 08:54
Electrocardiogram (*1) Urgent
Reason for Study: Fatigue / Weakness
03/09/25 08:55
EKG- Treatment ONCE
03/09/25 09:08
Complete Blood Count/With Diff Urgent
Comprehensive Metabolic Panel Urgent
Lipase Urgent
Magnesium Urgent
Urinalysis Reflex To Culture Urgent
Date Specimen was Collected: 03/09/25
Time Specimen was Collected: 08:55
Urine Microscopic Reflex Cult Urgent
Urine Culture Urgent
JIMBO Source: U
Specimen Description:
Date Specimen was Collected: 03/09/25
Time Specimen was Collected: 08:55
03/09/25 09:52
Morphine Sulfate 4 mg IV NOW STA
Ondansetron Injectable [Zofran] 4 mg IV NOW STA
Obstruct Series W/PA Chest [CR Obstruct Series W/pa Chest] Urgent
Comment:
Reason For Exam: vomiting, abd pain
03/09/25 10:08
Metoclopramide [Reglan] 10 mg IV NOW STA
03/09/25 10:09
Diphenhydramine [Benadryl] 25 mg IV NOW STA
03/09/25 14:32
Morphine Sulfate 4 mg IV NOW STA
Abnormal Lab Results
03/09/25
09:08
RBC 2.92 L 10^6/uL
(4.20-5.40)
Hgb 9.2 L g/dL
(12.0-16.0)
Hct 27.8 L %
(37.0-47.0)
MCH 31.5 H pg
(27.0-31.0)
RDW 16.4 H %
(11.5-14.5)
Plt Count 112 L 10^3/uL
(130-400)
Absolute Lymphs (auto) 0.8 L 10^3/uL
(1.2-3.4)
Lymphocytes % 10.6 L %
(20.5-51.1)
Eosinophils % 6.4 H %
(0-6)
Chloride 115 H mmol/L
(98-107)
Carbon Dioxide 21 L mmol/L
(22-30)
BUN 30 H mg/dl
(7-17)
Creatinine 2.2 H mg/dL
(0.6-1.0)
Glucose 137 H mg/dl
(70-99)
AST 12 L U/L
(14-36)
Ur Occult Blood Reflex 4+ A
(Negative)
Leukocyte Esterase Rfl 3+ A
(Negative)
Urine RBC 3-6 A /HPF
(0-2)
Urine WBC (Reflex) 60-70 A /HPF
(0-5)
Urine Bacteria (Reflex) Few A
(Negative)
Urine Yeast Few A
(Negative)
Urine Albumin (Reflex) 2+ A
(Neg - Trace)
03/09/25 09:08
03/09/25 09:08
Vital Signs
Initial and Last Documented VS:
Initial Vital Signs
Temp Pulse Resp BP Pulse Ox
98.5 F 77 21 156/62 94
03/09/25 08:56 03/09/25 08:56 03/09/25 08:56 03/09/25 08:56 03/09/25 08:56
Last Documented Vital Signs
Temp Pulse Resp BP Pulse Ox
98.5 F 75 16 124/60 100
03/09/25 08:56 03/09/25 14:00 03/09/25 14:00 03/09/25 13:00 03/09/25 13:45
MDM/Problems Addressed
Differential Diagnosis Includes:
Small bowel fraction, large bowel obstruction, enteritis, pancreatitis, lecture light imbalance, renal failure
MDM/Problems Addressed:
History of recurrent small bowel obstruction, abdominal pain
*Radiology
Radiology exam reviewed: radiology read reviewed
*Pulse Oximetry
Patient hypoxic: no
*Critical Care Note
Total Time (30-74mins, 75-104mins- exclusive of procedures): Not Applicable
Data Reviewed
Review of Other/Old Records Reveals: Discharge Summary (Discharge summary reviewed from February 26)
Source: patient
Further Testing Considered But Not Given:
Consider repeating CT but patient has had no further vomiting.
Patient Management
Escalation/DeEscalation of care consider admission/obs:
Patient does have recurrent bowel obstructions. She has stool in her ileostomy and has bowel sounds. She felt much better after initial meds. On reevaluation states her pain is back to a mild degree. I do think it is reasonable to discharge her
and trial clear liquids. Obviously she will return for any worsening numbness. Patient does agree
ED Attending Note
-
Portions of this chart may have been created with voice recognition software.� Occasional wrong word or��sound alike� substitutions may have occurred due to the inherent limitations of voice recognition software.
Discharge Plan
Departure
Patient Disposition: Home (Routine Discharge)
Date of Disposition: 03/09/25
Time of Disposition: 14:37
Patient with high blood pressure during this ER visit?: No
Discharge Problem:
Abdominal pain
Instructions: Clear Liquid Diet, Abdominal Pain
Prescriptions:
No Action
clopidogrel [Plavix] 75 mg Tablet
75 mg PO DAILY
atorvastatin 40 mg tablet
40 mg PO HS
acetaminophen 325 mg Tablet
650 mg PO Q4HPRN PRN (Reason: mild pain/temp>100F)
sodium bicarbonate 650 mg Tablet
650 mg PO Q8H
Fleet Enema 19-7 gram/118 mL Enema
118 ml NC DAILYPRN PRN (Reason: if dulcolax is ineffective after 24hrs)
Rx Instructions:
prn
loratadine 10 mg Tablet
10 mg PO DAILY
cholecalciferol (vitamin D3) [Vitamin D3] 25 mcg (1,000 unit) Tablet
25 mcg PO DAILY
melatonin 5 mg Tablet
5 mg PO HS
bisacodyl [Dulcolax (bisacodyl)] 10 mg Suppository
10 mg NC DAILYPRN PRN (Reason: if no bm aftr mom)
Rx Instructions:
prn
diclofenac sodium 1 % Gel
2 g TOPICAL TID
famotidine 20 mg tablet
20 mg PO HS
magnesium hydroxide [Milk of Magnesia] 400 mg/5 mL Suspension
30 ml PO [id number] PRN (Reason: no bm x3 days)
buspirone 10 mg Tablet
10 mg PO BID
pantoprazole 40 mg tablet,delayed release (DR/EC)
40 mg PO DAILY
levothyroxine 112 mcg tablet
112 mcg PO DAILY
venlafaxine 100 mg Tablet
100 mg PO BID
gabapentin 300 mg Capsule
300 mg PO BID Qty: 0 0RF
oxycodone 5 mg Tablet
5 mg PO Q4HPRN PRN (Reason: mod pain) Qty: 10 0RF
lorazepam [Ativan] 0.5 mg Tablet
0.25 mg PO BID Qty: 4 0RF
quetiapine [Seroquel] 25 mg Tablet
12.5 mg PO BID
doxycycline hyclate 100 mg Tablet
100 mg PO BID
Referrals:
Michael Vargas MD [Family Provider] -
Activity Restrictions/Additional Instructions:
Please stick to a clear liquid diet for the next 24 hours advance slowly. Return immediately for intractable vomiting, fevers or any other concerns. Please see your doctor or general surgery in the next 1 week for follow-up and reevaluation
Interventions
Interventions:
*Risk Screen - Suicide Last Done: 03/09/25 08:56
*General Assessment Last Done: 03/09/25 08:56
*Neglect/Abuse Screening Last Done: 03/09/25 08:56
*ED- Fall Risk Assessment Last Done: 03/09/25 08:56
*ED COVID-19 Vaccine History Last Done: 03/09/25 08:56
QH-Cffhvj-Tcuhwadxox Assessment Last Done: 03/09/25 08:56
Discharge Date and Time
Print Language: SINHALA
== END 2025-03-09 16:43 | disposition home or self-care (01) ==
LOC: EMR 08:50
PROVIDERS: EMERGENCY PHYSICIAN Emergency Medicine; FAMILY PHYSICIAN Internal Medicine
DX: R10.9 Unspecified abdominal pain (principal); R11.2 Nausea with vomiting, unspecified; I25.10 Atherosclerotic heart disease of native coronary artery without angina pectoris; I10 Essential (primary) hypertension; E11.40 Type 2 diabetes mellitus with diabetic neuropathy, unspecified; K52.0 Gastroenteritis and colitis due to radiation; E03.9 Hypothyroidism, unspecified; F32.A Depression, unspecified; F43.10 Post-traumatic stress disorder, unspecified; M06.9 Rheumatoid arthritis, unspecified; D64.9 Anemia, unspecified; M79.7 Fibromyalgia; G47.30 Sleep apnea, unspecified; F17.210 Nicotine dependence, cigarettes, uncomplicated; I25.2 Old myocardial infarction; Z79.02 Long term (current) use of antithrombotics/antiplatelets; Z93.1 Gastrostomy status; Z93.3 Colostomy status; Z95.5 Presence of coronary angioplasty implant and graft; Z87.442 Personal history of urinary calculi; Z85.41 Personal history of malignant neoplasm of cervix uteri; Z92.21 Personal history of antineoplastic chemotherapy; Z92.3 Personal history of irradiation; Z86.73 Personal history of transient ischemic attack (TIA), and cerebral infarction without residual deficits; Z98.0 Intestinal bypass and anastomosis status; Z91.040 Latex allergy status; Z88.0 Allergy status to penicillin; Z88.2 Allergy status to sulfonamides; Z88.8 Allergy status to other drugs, medicaments and biological substances; Z91.048 Other nonmedicinal substance allergy status
CPT/HCPCS: 99284; 96374; 96375 ×3; 96376; 74022; 80053; 81003; 81015; 83690; 83735; 85025; 87086; 93005

== ENCOUNTER 2025-03-12 07:15 | Inpatient (IN) | payer MEDICARE, OTHER, SELFPAY ==
[2025-03-10 13:04] VITALS: BP 133/75
[2025-03-10 13:41] LABS: ALT (SGPT) < 10 U/L (0-35); AST (SGOT) 11 U/L (14-36); Alkaline Phosphatase 86 U/L (38-126); Blood Urea Nitrogen 34 mg/dl (7-17); Calcium 9.8 mg/dl (8.4-10.2); Carbon Dioxide 20 mmol/L (22-30); Chloride 111 mmol/L (98-107); Glucose 118 mg/dl (70-99); Lipase 52 U/L (23-300); Potassium 3.9 mmol/L (3.5-5.1); Sodium 143 mmol/L (135-145); Total Bilirubin 0.7 mg/dl (0.2-1.3); Total Protein 7.8 g/dl (6.3-8.2); eGFR 23.89
[2025-03-10 13:52] LABS: % Basophils 0.2 % (0-2); % Eosinophils 3.7 % (0-6); % Immature Granulocytes 0.3 % (0-0.5); % Lymphocytes 5.6 % (20.5-51.1); % Monocytes 6.4 % (1.7-9.3); % Neutrophils 83.8 % (42.2-75.2); Absolute Eosinophils 0.5 10^3/uL (0-0.7); Absolute Lymphocytes 0.7 10^3/uL (1.2-3.4); Absolute Monocytes 0.8 10^3/uL (0.1-0.6); Absolute Neutrophils 10.6 10^3/uL (1.4-6.5); Hemoglobin 8.8 g/dL (12.0-16.0); Mean Corp Hgb Conc. 32.6 g/dL (33.0-37.0); Mean Corpuscular Hgb 31.7 pg (27.0-31.0); Mean Corpuscular Volume 97.1 fL (81.0-99.0); Nucleated Red Blood Cells % 0 %; Red Blood Cell Count 2.78 10^6/uL (4.20-5.40); Red Cell Dist. Width 16.3 % (11.5-14.5); White Blood Cell Count 12.6 10^3/uL (4.8-10.8)
[2025-03-10 14:00] VITALS: BP 141/76
--- NOTE | 2025-03-10 14:17 | ED.GENMED ---
Addendum entered and electronically signed by Jim Rosen DO 03/10/25 20:57:
Update patient states she feels in which pain to be discharged is her second visit,
Original Note:
History of Present Illness
General
Chief Complaint: Abdominal Symptoms
Source: patient, previous radiology exam and previous hospital records
Exam Limitations: non verbal-adult
Time Seen by Provider: 03/10/25 14:06
Nursing documentation reviewed up to this point in time: agreed with
History of Present Illness
History of Present Illness:
Chronically ill female from a residential prior stroke chronic anemia chronic renal insufficiency returns with abdominal pain and vomiting seen here yesterday had blood work and instructions she was discharged to home
Past History
Past History
ED Past Medical History: CAD, Cancer (Cervical cancer), CVA (X 2), Fibromyalgia, HTN, NIDDM, [place], Hypothyroidism, Psychiatric (Depression, PTSD) and Other (Rheumatoid arthritis, neuropathy, Colitis from radiation, Cellulitis, Sleep apnea uses CPAP,
Renal calculus, Parotid mass, LVH, GI bleeding, Anemia, PTSD); Negative Asthma or Hypercholesterolemia
ED Past Surgical History: Appendectomy, Bowel resection, Cardiac (Cardiac stent), Gynecological (Cervical Cancer with radiaion and Chemo, Hysterectomy), Orthopedic (Left ankle, left knee surgery X 2, Left wrist surgery, Right knee surgery, ),
Tonsilectomy (adnoids) and Other (Colostomy changed to Ileostomy, Ear tubes, Right parotidectomy, Left great toe and second Toe amputation)
Social History
Tobacco: Smoker (1ppd)
Alcohol: None
Drug: None
Personal:
Living: residential
Employment: Not employed
Family History
Family History: Early CAD (in patient's father)
Review of Systems
Review of Systems
Unable to obtain full review of systems at this time due to: non-verbal
All Other Systems: Not applicable
Phy Exam
Physical Exam
Physical Exam:
Physical Exam
General: 59 female chronically ill resting,
Neck: Dry lip
Heart: Regular
Lungs: no acute respiratory distress. clear bilaterally
Abdomen: Tender in the right mid abdomen clear brownish liquid in the
Neuro: Nonverbal localize the painful stimuli
Skin: no rash
Psychiatric: Unable to assess
Extremities: no edema.
Course
Orders/Labs/Results
Orders:
Orders
03/10/25 13:12
Complete Blood Count/With Diff Urgent
Comprehensive Metabolic Panel Urgent
Lipase Urgent
03/10/25 14:15
0.9% Sodium Chloride 1000 ml [Nss] 1,000 ml IV BOLUS
Ondansetron Injectable [Zofran] 4 mg IV NOW STA
Pantoprazole [Protonix IV] 40 mg IV NOW STA
03/10/25 14:17
CT Abd/pel Without Iv Or Oral Urgent
Comment:
Reason For Exam: vomiting hydro arf
03/10/25 14:55
Electrocardiogram (*1) Urgent
Reason for Study: Abdominal Pain
EKG- Treatment ONCE
03/10/25 16:07
Oxycodone [Roxicodone] 5 mg PO NOW STA
03/10/25 18:04
HYDROmorphone [Dilaudid] 1 mg IV NOW STA
Ondansetron Injectable [Zofran] 4 mg IV NOW STA
Abnormal Lab Results
03/10/25
13:12
WBC 12.6 H 10^3/uL
(4.8-10.8)
RBC 2.78 L 10^6/uL
(4.20-5.40)
Hgb 8.8 L g/dL
(12.0-16.0)
Hct 27.0 L %
(37.0-47.0)
MCH 31.7 H pg
(27.0-31.0)
MCHC 32.6 L g/dL
(33.0-37.0)
RDW 16.3 H %
(11.5-14.5)
Plt Count 96 L 10^3/uL
(130-400)
Absolute Neuts (auto) 10.6 H 10^3/uL
(1.4-6.5)
Absolute Lymphs (auto) 0.7 L 10^3/uL
(1.2-3.4)
Absolute Monos (auto) 0.8 H 10^3/uL
(0.1-0.6)
Neutrophils % 83.8 H %
(42.2-75.2)
Lymphocytes % 5.6 L %
(20.5-51.1)
Chloride 111 H mmol/L
(98-107)
Carbon Dioxide 20 L mmol/L
(22-30)
BUN 34 H mg/dl
(7-17)
Creatinine 2.3 H mg/dL
(0.6-1.0)
Glucose 118 H mg/dl
(70-99)
AST 11 L U/L
(14-36)
03/10/25 13:12
03/10/25 13:12
Vital Signs
Initial and Last Documented VS:
Initial Vital Signs
Temp Pulse Resp BP Pulse Ox
98.3 F 80 18 133/75 97
03/10/25 13:04 03/10/25 13:04 03/10/25 13:04 03/10/25 13:04 03/10/25 13:04
Last Documented Vital Signs
Temp Pulse Resp BP Pulse Ox
98.3 F 82 15 153/84 98
03/10/25 13:04 03/10/25 17:00 03/10/25 17:00 03/10/25 17:00 03/10/25 17:00
*Critical Care Note
Total Time (30-74mins, 75-104mins- exclusive of procedures): Not Applicable
Update Note
Update Note:
Update labs are noted chronic anemia chronic but a bit worsening renal insufficiency will start saline hydration antiemetics PPI check noncontrast CT
[address] report noted patient resting comfortably
7 PM update prior records reviewed appears to be a subacute to chronic issue, she has been treated here with antiemetics IV fluids analgesics,
ED Attending Note
-
Portions of this chart may have been created with voice recognition software.� Occasional wrong word or��sound alike� substitutions may have occurred due to the inherent limitations of voice recognition software.
Discharge Plan
Departure
Patient Disposition: Home (Routine Discharge)
Date of Disposition: 03/10/25
Time of Disposition: 17:43
Patient with high blood pressure during this ER visit?: No
Condition: Good
Discharge Problem:
Chronic kidney disease, stage 3b, Hemiplegia and hemiparesis following cerebral infarction affecting right dominant side, Abdominal pain
Instructions: Abdominal Pain
Prescriptions:
No Action
clopidogrel [Plavix] 75 mg Tablet
75 mg PO DAILY
atorvastatin 40 mg tablet
40 mg PO HS
acetaminophen 325 mg Tablet
650 mg PO Q4HPRN PRN (Reason: mild pain/temp>100F)
sodium bicarbonate 650 mg Tablet
650 mg PO Q8H
Fleet Enema 19-7 gram/118 mL Enema
118 ml RI DAILYPRN PRN (Reason: if dulcolax is ineffective after 24hrs)
Rx Instructions:
prn
loratadine 10 mg Tablet
10 mg PO DAILY
cholecalciferol (vitamin D3) [Vitamin D3] 25 mcg (1,000 unit) Tablet
25 mcg PO DAILY
melatonin 5 mg Tablet
5 mg PO HS
bisacodyl [Dulcolax (bisacodyl)] 10 mg Suppository
10 mg RI DAILYPRN PRN (Reason: if no bm aftr mom)
Rx Instructions:
prn
diclofenac sodium 1 % Gel
2 g TOPICAL TID
famotidine 20 mg tablet
20 mg PO HS
magnesium hydroxide [Milk of Magnesia] 400 mg/5 mL Suspension
30 ml PO [id number] PRN (Reason: no bm x3 days)
buspirone 10 mg Tablet
10 mg PO BID
pantoprazole 40 mg tablet,delayed release (DR/EC)
40 mg PO DAILY
levothyroxine 112 mcg tablet
112 mcg PO DAILY
venlafaxine 100 mg Tablet
100 mg PO BID
gabapentin 300 mg Capsule
300 mg PO BID Qty: 0 0RF
oxycodone 5 mg Tablet
5 mg PO Q4HPRN PRN (Reason: mod pain) Qty: 10 0RF
lorazepam [Ativan] 0.5 mg Tablet
0.25 mg PO BID Qty: 4 0RF
quetiapine [Seroquel] 25 mg Tablet
12.5 mg PO BID
doxycycline hyclate 100 mg Tablet
100 mg PO BID
Referrals:
Michael Vargas MD [Family Provider] -
Interventions
Interventions:
*Risk Screen - Suicide Last Done: 03/10/25 13:04
*General Assessment Last Done: 03/10/25 13:04
*Neglect/Abuse Screening Last Done: 03/10/25 13:04
*ED- Fall Risk Assessment Last Done: 03/10/25 13:04
*ED COVID-19 Vaccine History Last Done: 03/10/25 13:04
PH-Uimjhj-Wqcufwdrub Assessment Last Done: 03/10/25 13:09
Discharge Date and Time
Print Language: KINYARWANDA
[2025-03-10] MEDS: PROTONIX IV 40 MG IV (14:19)
[2025-03-10] MEDS: ZOFRAN 4 MG IV ×2 (14:19→18:11)
[2025-03-10] MEDS: NSS 1000 IV (14:21)
[2025-03-10 14:59] LABS: Mean Platelet Volume 8.9 fL (7.4-10.4); Platelet Count 96 10^3/uL (130-400)
[2025-03-10 15:00] VITALS: BP 161/80
[2025-03-10] MEDS: ROXICODONE 5 MG PO (16:50)
[2025-03-10 17:00] VITALS: BP 153/84
[2025-03-10] MEDS: DILAUDID 1 MG IV (18:11)
--- NOTE | 2025-03-10 21:51 | HPS.HSE ---
Family Physician
-
Family Physician: Michael Vargas
Chief Complaint
-
abdominal pain and vomiting
History of Present Illness
Patient is a 59-year-old female with past medical history significant for recurrent SBO, PAD status post femoropopliteal bypass, CVA, CAD, CKD 3B, right hip wounds, anxiety/depression, peripheral neuropathy secondary to chemotherapy, chronic pain
syndrome, opiate dependence, hypothyroidism, rheumatoid arthritis, COPD, obstructive sleep apnea, cervical cancer status post hysterectomy and radiation, radiation colitis status post colectomy ileostomy and parotid mass who presented to [facility] ED for
evaluation of abdominal pain and vomiting. Patient reports that symptoms have been ongoing for a couple weeks, she reports last episode of emesis was this morning. No reported fevers, chills, cough, shortness of breath, chest pain or urinary
symptoms.
Medical History
Past Medical History
Past Medical History: Reports Other
Additional Past Medical History:
recurrent SBO
PAD status post femoropopliteal bypass
CVA
CAD
CKD 3B
right hip wounds
anxiety/depression
peripheral neuropathy secondary to chemotherapy
chronic pain syndrome
opiate dependence
hypothyroidism
chronic right hemiparesis
chronic ambulatory dysfunction
dysphagia
chronic thrombocytopenia
chronic normocytic anemia
rheumatoid arthritis
COPD
obstructive sleep apnea
cervical cancer status post hysterectomy and radiation
radiation colitis status post colectomy ileostomy
parotid mass
Past Surgical History: Reports Other
Additional Past Surgical History:
Bowel resection and colostomy due to colon perforation Colostomy Revision x 4 and ultimate Ileostomy (2021)
G-tube Placement
hemiglossectomy & parotidectomy
Multiple Digital Amputations
Social History
Tobacco: Smoker
Alcohol: None
Drug: None
Living: Assisted
Family History
Family History: Not pertinent
Allergies / Home Medications
Allergies reflects when Allergies were last updated in [employer].
Home Medications with original date entered in [employer]
Allergy/Medication List:
Allergies
Allergy/AdvReac Type Severity Reaction Status Date / Time
adhesive Allergy TAPE-rash Verified 03/10/25 13:03
and itching
infliximab [From Remicade] Allergy Anaphylaxis Verified 03/10/25 13:03
latex Allergy Rash, Verified 03/10/25 13:03
itching,
Hives
Penicillins Allergy Unknown, Verified 03/10/25 13:03
tolerated
amoxicillin
and
ampicillin
in the past
Sulfa (Sulfonamide Allergy Hives, rash Verified 03/10/25 13:03
Antibiotics)
Home Medications
clopidogrel 75 mg tablet (Plavix) 75 mg PO DAILY Heart Disease/Condition 06/25/23
acetaminophen 325 mg tablet 650 mg PO Q4HPRN PRN mild pain/temp>100F 01/22/24
atorvastatin 40 mg tablet 40 mg PO HS High Cholesterol 01/22/24
cholecalciferol (vitamin D3) 25 mcg (1,000 unit) tablet (Vitamin D3) 25 mcg PO DAILY Supplement 01/22/24
loratadine 10 mg tablet 10 mg PO DAILY Allergies 01/22/24
melatonin 5 mg tablet 5 mg PO HS Sleep 01/22/24
sodium bicarbonate 650 mg tablet 650 mg PO Q8H Electrolyte Repletion 01/22/24
sodium phosphates 19 gram-7 gram/118 mL enema (Fleet Enema) 118 ml CO DAILYPRN PRN if dulcolax is ineffective after 24hrs 01/22/24
bisacodyl 10 mg rectal suppository (Dulcolax (bisacodyl)) 10 mg CO DAILYPRN PRN if no bm aftr mom 07/15/24
diclofenac sodium 1 % topical gel 0 g topical TID left shoulder 07/15/24
famotidine 20 mg tablet 20 mg PO HS Gastrointestinal Issue 07/15/24
buspirone 10 mg tablet 10 mg PO BID Mental Health/Anxiety 01/20/25
magnesium hydroxide 400 mg/5 mL oral suspension (Milk of Magnesia) 30 ml PO [id number] PRN no bm x3 days 01/20/25
levothyroxine 112 mcg tablet 112 mcg PO DAILY 02/06/25
pantoprazole 40 mg tablet,delayed release 40 mg PO DAILY 02/06/25
venlafaxine 100 mg tablet 100 mg PO BID Mental Health/Anxiety 02/18/25
lorazepam 0.5 mg tablet (Ativan) 0.25 mg (1/2 x 0.5 mg) PO BID Mental Health/Anxiety #4 tabs 02/26/25
oxycodone 5 mg tablet 5 mg PO Q4HPRN PRN mod pain #10 tabs 02/26/25
quetiapine 25 mg tablet (Seroquel) 12.5 mg PO BID 03/09/25
doxycycline hyclate 100 mg capsule 100 mg PO BID 03/10/25
gabapentin 300 mg capsule 300 mg PO TID 03/10/25
menthol 0.44 %-zinc oxide 20.6 % topical ointment (Moisture Barrier Ointment) 1 applic topical TID b/l buttock 03/10/25
mupirocin 2 % topical ointment 1 applic topical DAILY right thigh 03/10/25
Review of Systems
-
History Source: Patient
Abdomen/GI: Reports Abdominal Pain, Nausea and Vomiting
Physical Exam
Vital Signs
Vital Signs
Temp Pulse Resp BP Pulse Ox
98.6 F 82 15 153/84 98
03/10/25 21:31 03/10/25 17:00 03/10/25 17:00 03/10/25 17:00 03/10/25 17:00
Physical Exam
General: Well Developed, Well Nourished and No Apparent Distress
HEENT: NormoCephalic, Moist mucous membranes, Atraumatic, [place] Conjunctivae, Nose Appears Normal and Ears Appear Normal
Respiratory: Clear
Cardiac: S1/S2 and Regular Rhythm
Breast: Deferred by me
GI: Soft, Normal Bowel Sounds, Tender, Peg Tube and Ostomy
Rectal: Deferred by Provider
Genito-urinary: Deferred by me
Musculoskeletal: No Clubbing, No Cyanosis, Edema, Left Lower Extremity and Edema, Right Lower Extremity
Skin: IV/Catheter Site
Neuro: Awake, Alert and Nonfocal/grossly intact
Psych: Calm
Laboratory Results
-
03/10/25 13:12
03/10/25 13:12
Laboratory Results
Total Bilirubin 0.7 mg/dl (0.2-1.3) 03/10/25 13:12
AST 11 U/L (14-36) L 03/10/25 13:12
ALT < 10 U/L (0-35) 03/10/25 13:12
Alkaline Phosphatase 86 U/L (38-126) 03/10/25 13:12
Lipase 52 U/L (23-300) 03/10/25 13:12
Data Reviewed
-
CT Scan: Report Reviewed by me
Lab Data: Labs Reviewed by me
Impression/Plan
-
IMPRESSION/PLAN:
#abdominal pain and vomiting
#recurrent SBO
WBC 12.[address]: Fluid-filled mildly dilated small bowel loops for which considerations include an enteritis, ileus, or developing/partial small bowel obstruction. Somewhat limited in the absence of oral and
intravenous contrast.
Large number of bilateral intrarenal calculi and/or renal vascular calcifications.
Other chronic findings, as detailed above.
- Admit to med/surg
- Consult Surgery
- small bowel x-ray in the morning
- continue famotidine and pantoprazole
- antiemetics
- Avoid opiates as much as possible
- NPO for bowel rest
- IVF NSS 80cc/hr
#CVA
#CAD
- continue atorvastatin and clopidogrel
#PAD
status post femoropopliteal bypass
#CKD 3B
BUN 34, Creat 2.3
#anxiety/depression
- continue buspirone, lorazepam, quetiapine and venlafaxine
#peripheral neuropathy secondary to chemotherapy
- continue gabapentin
#hypothyroidism
- continue levothyroxine
#COPD
- continue loratadine
#cervical cancer
status post hysterectomy and radiation
#radiation colitis
status post colectomy ileostomy
#obstructive sleep apnea
#rheumatoid arthritis
#chronic pain syndrome
#opiate dependence
#right hip wounds
#chronic right hemiparesis
#chronic ambulatory dysfunction
#dysphagia
#chronic thrombocytopenia
#chronic normocytic anemia
Code status: DNR
DVT prophylaxis: heparin sq
--- NOTE | 2025-03-10 22:33 | W.PN.UPDATE ---
Update Note
Progress Note Update
Patient seen in conjunction with CLASSIFICATION CLERK. I agree the findings and physical. I concur with assessment and plan.
This is a 59-year-old with past medical history of recurrent small bowel obstruction, history of multiple intra-abdominal surgeries including cervical cancer status post radiation and chemo and hysterectomy, appendectomy, bowel resection, also has
history of CAD CVA with residual aphasia, hemiplegia and hemiparesis, fibromyalgia hypertension diabetes not on insulin, rheumatoid arthritis and sleep apnea on CPAP presenting to the emergency department with abdominal pain and vomiting.
Patient was seen in the emergency department 1 day ago for similar symptoms. She was recently discharged from the hospital for a similar episode where she had a partial small bowel obstruction and was treated conservatively. She now comes back
from rehab for over the last 2 days with recurrence of the symptoms. She last vomited this AM. She still has some minor dry heaves. Mild abdominal pain. Last bowel movement was today.
She has a PEG tube but has been tolerating p.o.
Here in the emergency department she was afebrile, blood pressure was 150/84 with a pulse of 82 satting 96% on room air. ECG shows sinus rhythm at a rate of 78 with PVC.
She had a white count of 0.6, hemoglobin 8.8 similar to prior platelet 96 to prior. Electrolytes were within normal range. BUN/creatinine metabolic creatinine of 2.3 which is elevated but similar to baseline range of around 1.8-2.2. Glucose
normal. LFTs were normal. Lipase was normal.
CT of the abdomen pelvis without IV or oral contrast was similar to prior CT done at the beginning of the month showing fluid-filled mildly dilated small bowel loops for which enteritis ileus partial small bowel obstruction is possible.
Assessment and plan:
59 y.o with recurrent sbo. Partial SBO similar to prior presentation. CT without any acute findings. Fairly benign abdominal exam with active bowel sounds and mild ttp at RLQ. Normal LFTs, lipase. Labs similar to prior.
- admit to med/surg
- npo for now
- antiemetics, iv fluids and pain control
- iv ppi
- patient last vomited this am and is resting comfortably, hold off on NG tube.
- has PEG, no PEG feeding, tolerating po at [facility]
- serial examinations,
- abd series in am
- Surgery consult
CKD - Mild uptrending for creatinine likely related to hydration status
- IV fluids
- continue bicarb
- avoid nephrotoxin
CAD/CVA
- continue plavix/statin
Continue her other oral medications per home regimen. Patient on docycycline and has a mild leukocytosis. No known urinary symptoms. No SOB, fevers or chills. Obtain [place] records in AM. Holding doxycycline for now.
Holding cpap incase of vomiting/aspiration
DVT PPX - heparin sq
Code status - DNR
[2025-03-11 00:49] VITALS: BP 152/103; BMI 31.2
[2025-03-11] MEDS: NSS 1000 IV ×2 (01:34→12:51)
[2025-03-11] MEDS: ZOFRAN 4 MG IV (01:35)
[2025-03-11] MEDS: SODIUM BICARBONATE 650 MG PO ×3 (01:36→16:03)
[2025-03-11] MEDS: HEPARIN 5000 UNITS SC ×3 (01:36→16:02)
[2025-03-11] MEDS: DILAUDID 0.5 MG IV ×4 (01:39→20:03)
[2025-03-11 03:22] VITALS: BP 142/75
[2025-03-11] MEDS: SYNTHROID 112 MCG PO (05:49)
[2025-03-11 06:00] VITALS: BMI 31.1
[2025-03-11 06:22] LABS: Glucose - Point of Care 104 mg/dl (70-99)
[2025-03-11 07:10] VITALS: BP 132/98
[2025-03-11 08:01] LABS: Blood Urea Nitrogen 31 mg/dl (7-17); Calcium 9.4 mg/dl (8.4-10.2); Carbon Dioxide 18 mmol/L (22-30); Chloride 115 mmol/L (98-107); Estimated Creatinine Clearance 36 ml/min; Glucose 98 mg/dl (70-99); Potassium 3.8 mmol/L (3.5-5.1); Sodium 143 mmol/L (135-145); eGFR 28.25
--- NOTE | 2025-03-11 08:11 | W.PN.HOSP.TC ---
Today's Communication/Plan
-
pain mgmt
stool studies
PEG to gravity
IVF
repeat labs in AM
GenSx eval
Assessment / Plan
Assessment / Plan
59yo F with PMHX of chronic abdominal pain 2/2 adhesions and multiple episodes of ileus and SBO, CVA with PAD s/pright to left femoral to femoral artery bypass with sartorius flaps, L hemiparesis, PEG tube, right femur fracture s/p repair on
03/09/25, HTN, CKD stage 3, RA, COPD, RACHEL on CPAP, hypothyroidism, Hx of cervical CA s/p hysterectomy and RT, radiation colitis s/p colectomy and ileostomy, CAD, DM, parotid mass, RACHEL, depression, neuropathy, recurrent SBO came form facility with
acute on chronic abdominal pain and recurrent partial SBO on CT. Patient had 9 CT abd/pelvis over past 12months and with similar findings of early partial SBO that later was resolving without surgical intervention. Abdominal pain Hx is extensive,
dating back to at least 2019.
As per previous GenSx evaluation: with post RT and postOP changes and possible slow transit causing pain - risks of new surgical intervention most likely overweight benefits witgh an absence of clear transition point
Current CT with fluid-filled midly dilated small bowel with concern for enteritis, ileus or early pSBO
A/P:
#Acute on chronic abdominal pain 2/2 postOP and postRT adhesions and slow transit with recurrent partial SBO
#Possible enteritis with mild leukocytosis
Ostomy bag with liquid brown fluid - send for c.diff, cultures, leukocytes
NPO and PEG to gravity
GenSx consult pending
Pain mgmt
EGD on 01/26/25 with no significant findings, recommeded to cont PPI, discussion with pain mgmt for intensification of pain regimen
#RHETT on CKD stage 3
2/2 dehydration
IVF and encourage PO intake
follow Cr
#Chronic dysphagia s/p PEG now with oral intake
IDDS6 diet when able
#DM type 2 with circulatory complications
HgbA1c 5.2% in December 2024
cont diet control
#Chronic anemia
ppi
No iron deficiency, normal B12 and folate as of January 2025
#essential HTN
#RA
#COPD not in exacerbation
#Hypothyroidism
#Hx of CVA
#HLD
#Neuropathy
#Anxiety d/o
#Hx of parotid mass s/p s/p Partial Glossectomy
cont home meds
#PAD s/p L femoral graft
Recent US showed LE vascular duplex showed bilateral moderate arterial insufficiency - recommeded cont Plavix and outpatient fuollow up with vascular
#Nephrolithiasis
with Hx of ureteral stent in [address]
No obstruction on CT
Will benefit from outpatient urology
DVT ppx hep
DNR/DNI
I have spent at least 64min reviewing chart, test results, communication with consultants and providing direct patient care
Anticipated Discharge: > 48 hours
Subjective/Interval History
-
Date of Service: March 11, 2025
Objective Data
-
Labs:
Laboratory Results
03/11/25
05:23
WBC Pending
Hgb Pending
Hct Pending
Plt Count Pending
Sodium 143
Potassium 3.8
Chloride 115 H
Carbon Dioxide 18 L
BUN 31 H
Creatinine 2.0 H
Glucose 98
Calcium 9.4
Vital Signs:
Vital Signs
Temp Pulse Resp BP Pulse Ox
98.3 F 78 20 132/98 97
03/11/25 07:10 03/11/25 07:10 03/11/25 07:10 03/11/25 07:10 03/11/25 07:10
I&O
03/10/25 03/11/25 03/12/25
06:59 06:59 06:59
Intake Total 480 / 480
Output Total 350 / 350
Balance 130 / 130
Review of Systems
-
History Source: Patient
Abdomen/GI: Reports Abdominal Pain (transverse, sharp)
Physical Exam
-
General: Pain
Respiratory: Clear to Auscultation
Cardiac: Regular Rhythm
GI: Nondistended, Tender, Peg Tube and Ostomy
Rectal: Other (liquid stool)
Neuro: Awake, Alert, Oriented, AO x 3, No Motor Deficits (hemiparesis L), Slurred Speech (chronic) and Other
Psych: Calm
[2025-03-11] MEDS: BUSPAR 10 MG PO ×2 (08:13→20:02)
[2025-03-11] MEDS: CLARITIN 10 MG PO (08:13)
[2025-03-11] MEDS: BACTROBAN 2% OINTMENT 1 APPLIC TOPICAL (08:13)
[2025-03-11] MEDS: ATIVAN 0.25 MG PO ×2 (08:13→20:00)
[2025-03-11] MEDS: PLAVIX 75 MG PO (08:14)
[2025-03-11] MEDS: EFFEXOR 100 MG PO ×2 (08:14→20:03)
[2025-03-11] MEDS: SEROQUEL 12.5 MG PO ×2 (08:15→20:04)
[2025-03-11] MEDS: VITAMIN D3 (cholecalciferol) 25 MCG PO (08:16)
[2025-03-11] MEDS: NEURONTIN 200 MG PO ×3 (08:22→20:04)
[2025-03-11] MEDS: PROTONIX IV 40 MG IV (08:22)
[2025-03-11] MEDS: DILAUDID 0.25 MG IV ×2 (08:23→12:23)
[2025-03-11 08:34] LABS: Hematocrit 26.8 % (37.0-47.0); Hemoglobin 8.8 g/dL (12.0-16.0); Mean Corp Hgb Conc. 32.8 g/dL (33.0-37.0); Mean Corpuscular Hgb 31.5 pg (27.0-31.0); Mean Corpuscular Volume 96.1 fL (81.0-99.0); Mean Platelet Volume 9.6 fL (7.4-10.4); Platelet Count 105 10^3/uL (130-400); Red Blood Cell Count 2.79 10^6/uL (4.20-5.40); Red Cell Dist. Width 15.9 % (11.5-14.5); White Blood Cell Count 10.5 10^3/uL (4.8-10.8)
--- NOTE | 2025-03-11 11:42 | CON.GS ---
Consultation
-
Date/Time Consultation Requested: 03/11/2025 8 AM
Date/Time Consultation Performed: 03/11/2025 8 AM
Requesting Provider: Dr. Bautista
Performing Provider: Dr. Jones
Reason for Consultation: Small bowel obstruction
Medical History
-
Chief Complaint: Abdominal pain
History of Present Illness:
Ms Garsia is a 59 yo female with a h/o CAD, PAD with multiple digit amputations, status post fem-fem and femoropopliteal bypasses, CVA (on Plavix) with right hemiparesis, parotid mass tx surgically with PEG placed, Cervical ca tx with DANIEL, chemo,
XRT, Radiation colitis with bowel perforation s/p completion colectomy with end ileostomy complicated by parastomal hernia s/p re-siting of end ileostomy to left abdomen, and open ventral incisional hernia repair with unilateral [id number] by Dr
Lucille. She has had multiple admissions for bowel obstructions over the past several months all of which have resolved with nonoperative measures. She presents from her SNF as she developed abdominal pain yesterday with nausea and vomiting. Her
PEG tube was not vented to gravity. There is a small amount of stool in the ostomy appliance with some air.
Past Medical History
Past Medical History: Other (CAD, PAD, CVA, CKD)
Past Surgical History: Other (Multiple colon surgeries with colostomy revision, PEG tube, hernia repair with mesh)
Social History
Tobacco: Non-Smoker
Alcohol: None
Living: Skilled Nursing
Family History
Family History: Reviewed & Not Pertinent
Allergies / Home Medications
Allergy/AdvReac Type Severity Reaction Status Date / Time
adhesive Allergy TAPE-rash Verified 03/10/25 13:03
and itching
infliximab [From Remicade] Allergy Anaphylaxis Verified 03/10/25 13:03
latex Allergy Rash, Verified 03/10/25 13:03
itching,
Hives
Penicillins Allergy Unknown, Verified 03/10/25 13:03
tolerated
amoxicillin
and
ampicillin
in the past
Sulfa (Sulfonamide Allergy Hives, rash Verified 03/10/25 13:03
Antibiotics)
�Medication �Instructions �Recorded �Confirmed �Type
clopidogrel 75 mg tablet (Plavix) 75 mg PO DAILY Heart 06/25/23 03/10/25 History
Disease/Condition
acetaminophen 325 mg tablet 650 mg PO Q4HPRN PRN mild 01/22/24 03/10/25 History
pain/temp>100F
atorvastatin 40 mg tablet 40 mg PO HS High Cholesterol 01/22/24 03/10/25 History
cholecalciferol (vitamin D3) 25 25 mcg PO DAILY Supplement 01/22/24 03/10/25 History
mcg (1,000 unit) tablet (Vitamin
D3)
loratadine 10 mg tablet 10 mg PO DAILY Allergies 01/22/24 03/10/25 History
melatonin 5 mg tablet 5 mg PO HS Sleep 01/22/24 03/10/25 History
sodium bicarbonate 650 mg tablet 650 mg PO Q8H Electrolyte Repletion 01/22/24 03/10/25 History
sodium phosphates 19 gram-7 118 ml MD DAILYPRN PRN if dulcolax 01/22/24 03/10/25 History
gram/118 mL enema (Fleet Enema) is ineffective after 24hrs
bisacodyl 10 mg rectal suppository 10 mg MD DAILYPRN PRN if no bm 07/15/24 03/10/25 History
(Dulcolax (bisacodyl)) aftr mom
diclofenac sodium 1 % topical gel 0 g topical TID left shoulder 07/15/24 03/10/25 History
famotidine 20 mg tablet 20 mg PO HS Gastrointestinal Issue 07/15/24 03/10/25 History
buspirone 10 mg tablet 10 mg PO BID Mental Health/Anxiety 01/20/25 03/10/25 History
magnesium hydroxide 400 mg/5 mL 30 ml PO [id number] PRN no bm x3 days 01/20/25 03/10/25 History
oral suspension (Milk of Magnesia)
levothyroxine 112 mcg tablet 112 mcg PO DAILY Thyroid 02/06/25 03/10/25 History
pantoprazole 40 mg tablet,delayed 40 mg PO DAILY Gastrointestinal 02/06/25 03/10/25 History
release Issue
venlafaxine 100 mg tablet 100 mg PO BID Mental Health/Anxiety 02/18/25 03/10/25 History
lorazepam 0.5 mg tablet (Ativan) 0.25 mg (1/2 x 0.5 mg) PO BID 02/26/25 03/10/25 Rx
Mental Health/Anxiety #4 tabs
oxycodone 5 mg tablet 5 mg PO Q4HPRN PRN mod pain #10 02/26/25 03/10/25 Rx
tabs
quetiapine 25 mg tablet (Seroquel) 12.5 mg PO BID Mental 03/09/25 03/10/25 History
Health/Anxiety
doxycycline hyclate 100 mg capsule 100 mg PO BID Infection 03/10/25 03/10/25 History
gabapentin 300 mg capsule 300 mg PO TID Neurological 03/10/25 03/10/25 History
Condition
menthol 0.44 %-zinc oxide 20.6 % 1 applic topical TID b/l buttock 03/10/25 03/10/25 History
topical ointment (Moisture Barrier
Ointment)
mupirocin 2 % topical ointment 1 applic topical DAILY right thigh 03/10/25 03/10/25 History
Review of Systems
-
All other systems: Negative unless noted
A 10 point review of systems was completed, and was negative except as per HPI.
Physical Exam
Vital Signs
Temp Pulse Resp BP Pulse Ox
98.3 F 78 20 132/98 97
03/11/25 07:10 03/11/25 07:10 03/11/25 07:10 03/11/25 07:10 03/11/25 10:51
03/10/25 03/11/25 03/12/25
06:59 06:59 06:59
Actual Weight 92.896 kg
Body Mass Index (BMI) 31.1
Lab Results
03/11/25 05:23
03/11/25 05:23
WBC 10.5 10^3/uL (4.8-10.8) 03/11/25 05:23
Hgb 8.8 g/dL (12.0-16.0) L 03/11/25 05:23
Hct 26.8 % (37.0-47.0) L 03/11/25 05:23
Plt Count 105 10^3/uL (130-400) L 03/11/25 05:23
Abs Immat Gran (auto) 0.0 10^3/uL (0-0.05) 03/10/25 13:12
Neutrophils % 83.8 % (42.2-75.2) H 03/10/25 13:12
Physical Exam
General: Other (Looks uncomfortable, lying in bed)
HEENT: Normocephalic
GI: Soft, Tender, Distended, Obese and Other (Stoma is pink patent and productive of brown stool)
Data Reviewed
-
CT Scan: Image Personally Visualized and interpreted, Report Reviewed by me and Discussed with Patient
Labs: Labs Reviewed by me, Discussed with Physician and Discussed with Patient
Total Time Spent with Patient (in minutes): 25
Assessment / Plan
-
This is a 59-year-old female with a h/o CAD, PAD with multiple digit amputations, status post fem-fem and femoropopliteal bypasses, CVA (on Plavix) with right hemiparesis, parotid mass tx surgically with PEG placed, Cervical ca tx with DANIEL, chemo,
XRT, Radiation colitis with bowel perforation s/p completion colectomy with end ileostomy complicated by parastomal hernia s/p re-siting of end ileostomy to left abdomen, and open ventral incisional hernia repair with unilateral [id number] by
Lucille who presents with a recurrent small bowel obstruction, confirmed on CT without oral contrast. Clinically stable.
This remains a challenging case given her multiple abdominal surgeries, mesh and history of radiation she has high risk for potential complications with any surgical exploration/lysis. Furthermore, repeat small bowel follow-through studies have
shown no persistent obstruction. Nevertheless she keeps coming back to the hospital with similar complaints. It is somewhat frustrating that her nursing facility is not using the PEG tube to vent her stomach, while this is not as effective as an
NG tube, it is better than nothing and would alleviate the need of the patient vomiting.
N.p.o., IV fluids
Continue PEG to gravity
Hold Plavix
Plan for a small bowel follow-through tomorrow via the PEG
Surgery will continue to follow
--- NOTE | 2025-03-11 11:45 | PTCARENOTE ---
Patient placed on peg tube to a gravity/ Ulrich bag per dr. Ajay Jones and Dr. Haley. draining and patent. plan of care ongoing. no s/s of distress noted at this time.
[2025-03-11 12:21] LABS: Glucose - Point of Care 93 mg/dl (70-99)
[2025-03-11 15:00] VITALS: BP 130/99
--- NOTE | 2025-03-11 16:12 | CM ---
CM spoke with SNF nursing
Pt is a LTC resident at [facility] with MA bedhold
Pt is bed/chair bound, self propel W/C, 2 person assist for transfers
AxO 2-3x
Rx- [facility]
Return SNF referral sent via [facility]
Bedside meeting with pt
KE verbally reviewed0 copy provided
Discharge Disposition- return to [facility] for LTC
--- NOTE | 2025-03-11 17:28 | DOWNTIME ---
There was a [employer] Downtime on 03/11/2025 from 1230 to 03/11/2025 at 1550. Downtime documentation of patient's care, including medication administrations, has been reconciled in the electronic record per guidelines. Refer to the
patient's paper chart under the miscellaneous tab to see printed paper medication records and downtime forms.
--- NOTE | 2025-03-11 18:00 | PTCARENOTE ---
Addendum entered by Luciana Tim RN 03/11/25 18:05:
output 300mls
Original Note:
Patient placed on peg tube to a gravity/ Ulrich bag per dr. Ajay Jones and Dr. Haley. draining green/brown liquid and patent. plan of care ongoing. no s/s of distress noted at this time.
[2025-03-11 18:06] LABS: Glucose - Point of Care 95 mg/dl (70-99)
[2025-03-11] MEDS: TYLENOL 650 MG PO (20:02)
[2025-03-11] MEDS: LIPITOR 40 MG PO (20:08)
[2025-03-11] MEDS: MELATONIN 5 MG PO (20:08)
[2025-03-11] MEDS: PEPCID 20 MG PO (20:08)
[2025-03-11 23:34] VITALS: BP 110/61
[2025-03-12] MEDS: HEPARIN 5000 UNITS SC ×2 (00:04→08:41)
[2025-03-12] MEDS: SODIUM BICARBONATE 650 MG PO (00:04)
[2025-03-12] MEDS: NSS 1000 IV (02:00)
--- NOTE | 2025-03-12 05:10 | PTCARENOTE ---
Ostomy appliance leaked. Device was removed and replaced. Bed bath completed. Protective foams applied. Pt resting comfortably with call oglesby within reach.
[2025-03-12 05:23] VITALS: BMI 31.1
[2025-03-12 06:37] LABS: Glucose - Point of Care 95 mg/dl (70-99)
[2025-03-12] MEDS: DILAUDID 0.5 MG IV ×4 (07:13→20:53)
[2025-03-12 07:45] VITALS: BP 148/75
[2025-03-12] MEDS: ATIVAN 0.25 MG TUBE ×2 (08:35→20:50)
[2025-03-12] MEDS: NEURONTIN 200 MG TUBE ×3 (08:37→20:50)
[2025-03-12] MEDS: SEROQUEL 12.5 MG TUBE ×2 (08:38→20:52)
[2025-03-12] MEDS: VITAMIN D3 (cholecalciferol) 25 MCG PO (08:39)
[2025-03-12] MEDS: CLARITIN 10 MG TUBE (08:39)
[2025-03-12] MEDS: EFFEXOR 100 MG TUBE ×2 (08:40→20:48)
[2025-03-12] MEDS: SODIUM BICARBONATE 650 MG TUBE ×2 (08:40→15:42)
[2025-03-12] MEDS: BUSPAR 10 MG TUBE ×2 (08:41→20:51)
[2025-03-12] MEDS: PROTONIX IV 40 MG IV (08:47)
[2025-03-12] MEDS: BACTROBAN 2% OINTMENT 1 APPLIC TOPICAL (08:47)
[2025-03-12 08:55] LABS: % Basophils 0.3 % (0-2); % Immature Granulocytes 0.4 % (0-0.5); % Lymphocytes 7.1 % (20.5-51.1); % Monocytes 6.1 % (1.7-9.3); % Neutrophils 83.1 % (42.2-75.2); Absolute Eosinophils 0.2 10^3/uL (0-0.7); Absolute Lymphocytes 0.6 10^3/uL (1.2-3.4); Absolute Monocytes 0.5 10^3/uL (0.1-0.6); Absolute Neutrophils 6.4 10^3/uL (1.4-6.5); Hematocrit 24.8 % (37.0-47.0); Hemoglobin 8.2 g/dL (12.0-16.0); Mean Corp Hgb Conc. 33.1 g/dL (33.0-37.0); Mean Corpuscular Hgb 31.5 pg (27.0-31.0); Mean Corpuscular Volume 95.4 fL (81.0-99.0); Mean Platelet Volume 8.8 fL (7.4-10.4); Nucleated Red Blood Cells % 0 %; Platelet Count 88 10^3/uL (130-400); White Blood Cell Count 7.7 10^3/uL (4.8-10.8)
[2025-03-12 09:30] LABS: ALT (SGPT) < 10 U/L (0-35); AST (SGOT) 10 U/L (14-36); Albumin 3.3 g/dl (3.5-5.0); Alkaline Phosphatase 81 U/L (38-126); Blood Urea Nitrogen 27 mg/dl (7-17); Calcium 9.4 mg/dl (8.4-10.2); Carbon Dioxide 19 mmol/L (22-30); Chloride 115 mmol/L (98-107); Estimated Creatinine Clearance 45 ml/min; Glucose 89 mg/dl (70-99); Potassium 3.6 mmol/L (3.5-5.1); Sodium 143 mmol/L (135-145); Total Bilirubin 0.6 mg/dl (0.2-1.3); Total Protein 6.8 g/dl (6.3-8.2); eGFR 36.92
[2025-03-12] MEDS: SYNTHROID PO (10:07)
[2025-03-12] MEDS: PROTONIX 100 IV ×2 (10:28→20:58)
[2025-03-12] MEDS: NSS (PRESERVATIVE FREE) 20 ML IV (10:31)
[2025-03-12] MEDS: PROTONIX IV 80 MG IV (10:31)
--- NOTE | 2025-03-12 10:39 | W.PN.HOSP.TC ---
Today's Communication/Plan
-
GI consult
PPI drip
NPO, will discuss PEG intake with patient
Assessment / Plan
Assessment / Plan
59yo F with PMHX of chronic abdominal pain 2/2 adhesions and multiple episodes of ileus and SBO, CVA with PAD s/pright to left femoral to femoral artery bypass with sartorius flaps, L hemiparesis, PEG tube, right femur fracture s/p repair on
03/09/25, HTN, CKD stage 3, RA, COPD, RACHEL on CPAP, hypothyroidism, Hx of cervical CA s/p hysterectomy and RT, radiation colitis s/p colectomy and ileostomy, CAD, DM, parotid mass, RACHEL, depression, neuropathy, recurrent SBO came form facility with
acute on chronic abdominal pain and recurrent partial SBO on CT. Patient had 9 CT abd/pelvis over past 12months and with similar findings of early partial SBO that later was resolving without surgical intervention. Abdominal pain Hx is extensive,
dating back to at least 2019.
As per previous GenSx evaluation: with post RT and postOP changes and possible slow transit causing pain - risks of new surgical intervention most likely overweight benefits witgh an absence of clear transition point
Current CT with fluid-filled mildly dilated small bowel with concern for enteritis, ileus or early pSBO
A/P:
#Acute on chronic abdominal pain 2/2 postOP and postRT adhesions and slow transit with recurrent partial SBO
#Possible enteritis with mild leukocytosis
Ostomy bag with liquid brown fluid - send for c.diff, cultures, leukocytes
NPO and PEG to gravity
GenSx consult pending
Pain mgmt
EGD on 01/26/25 with no significant findings, recommended to cont PPI, discussion with pain mgmt for intensification of pain regimen
Will attempt to discuss PEG tube feeds to see if that will relieve the pain as more liquid intake rather then what patient usually eating
#RHETT on CKD stage 3
2/2 dehydration
IVF and encourage PO intake
follow Cr
#Chronic dysphagia s/p PEG now with oral intake
IDDS6 diet when able
#DM type 2 with circulatory complications
HgbA1c 5.2% in December 2024
cont diet control
#Chronic anemia with acute Hgb drop
ppi drip and pending GI,. however EGD on 01/26 - with no significant findings
Stop hep ppx, start compression Ppx
serial H&H
Plavix already on hold
No iron deficiency, normal B12 and folate as of January 2025
#essential HTN
#RA
#COPD not in exacerbation
#Hypothyroidism
#Hx of CVA
#HLD
#Neuropathy
#Anxiety d/o
#Hx of parotid mass s/p s/p Partial Glossectomy
cont home meds
#PAD s/p L femoral graft
Recent US showed LE vascular duplex showed bilateral moderate arterial insufficiency - recommended cont Plavix and outpatient follow up with vascular
#Nephrolithiasis
with Hx of ureteral stent in [address] obstruction on CT
Will benefit from outpatient urology
DVT ppx SCDs
DNR/DNI
I have spent at least 58min reviewing chart, test results, communication with consultants and providing direct patient care
Anticipated Discharge: > 48 hours
Subjective/Interval History
-
Date of Service: March 12, 2025
Objective Data
-
Labs:
Laboratory Results
03/12/25 03/12/25
08:27 08:28
WBC 7.7
Hgb 8.2 L
Hct 24.8 L
Plt Count 88 L
Sodium 143
Potassium 3.6
Chloride 115 H
Carbon Dioxide 19 L
BUN 27 H
Creatinine 1.6 H
Glucose 89
Calcium 9.4
Total Bilirubin 0.6
AST 10 L
ALT < 10
Alkaline Phosphatase 81
Vital Signs:
Vital Signs
Temp Pulse Resp BP Pulse Ox
97.9 F 47 18 148/75 97
03/12/25 07:45 03/12/25 07:45 03/12/25 07:45 03/12/25 07:45 03/12/25 07:45
I&O
03/11/25 03/12/25 03/13/25
06:59 06:59 06:59
Intake Total 480 / 480 1380 / 1380
Output Total 350 / 350 1925 / 1925
Balance 130 / 130 -545 / -545
Review of Systems
-
History Source: Patient
Abdomen/GI: Reports Abdominal Pain
Physical Exam
-
General: Comfortable
Respiratory: Clear to Auscultation
Cardiac: Regular Rhythm
GI: Soft, Nondistended, Tender and Ostomy (with dark liquid output)
Neuro: Awake, Alert, Oriented, Slurred Speech (chronic) and Other (chronic L hemiparesis)
Psych: Calm
[2025-03-12 10:44] VITALS: BMI 31.1
[2025-03-12 11:22] LABS: Hematocrit 23.5 % (37.0-47.0); Hemoglobin 7.8 g/dL (12.0-16.0)
--- NOTE | 2025-03-12 11:31 | CON.GI ---
Addendum entered and electronically signed by Cindy Gan Do, MD 03/12/25 15:46:
I saw and examined the patient.
The PAIN MANAGEMENT PHYSICIAN's note was reviewed and I agree with the note.
Comment: Niurka is a 59yo W retirement resident with complex past medical history of CVA, PAD, and cervical cancer s/p XRT complicated by radiation colitis/perforation with ileostomy with incisional hernia repair 2021 who was admitted for acute on
chronic abd pain. GI consulted for anemia and dark stool through ostomy. She has PEG tube but prefers to eat orally. She has had many admissions last January 2025 where I did an EGD. Vitals stable. exam W appears older than stated age, obese, PEG
tube dressings c/d/i, ostomy with green stool stoma appears appropriate. Imaging CTAP without oral or IV contrast Fluid-filled mildly dilated small bowel loops for which considerations include an enteritis, ileus, or developing/partial small bowel
obstruction. Somewhat limited in the absence of oral and intravenous contrast.
Impression
- Acute on chronic abd pain
Suspect adhesions from her prior surgeries/XRT
Other consideration is chronic pancreatitis (elevated lipase noted 01/2025 and 01/2024 with pancreatic atrophy on prior imaging)
- h/o cervical cancer
- h/o radiation colitis with perf and ileostomy
- Ostomy hernia with repair
- Chronic anemia
- Chronic thrombocytopenia
- CVA
- PAD
- PEG tube
- Obesity
Recommendation
- Ileostomy output does not appear overtly bloody. If anemia worsens consider endoscopic exam through ileostomy and peristoma site
- Trend H/H
- She had recent EGD 01/2025
- C/w protonix 40mg IV BID
- CLD agree with TF
- Appreciate surgical recs
Will follow with you
Original Note:
Consultation
-
Date/Time Consultation Requested: 03/12/25 0900
Date/Time Consultation Performed: 03/12/25 1130
Requesting Provider: Michele Haley MD
Performing Provider: WAYNE Manzano, Cindy Berger MD
Reason for Consultation: abdominal pain
Medical History
Chief Complaint / HPI
Chief Complaint: Abdominal pain
History of Present Illness:
Pt is a 59 year old female with a past medical history recurrent partial small bowel obstruction, ileus, prior pneumonia, prior cardiac stents, PAD with femoral graft, nephrolithasis, CVA 08/2023 with residual right sided hemiparesis, status
post PEG tube, hypertension, CKD COPD, hypothyroidism, UTI, cervical cancer status post hysterectomy, chemoradiation, radiation colitis requiring colectomy with ileocolostomy done at [facility] in 2015, complicated by parastomal hernia status post
re-sitting of end ileostomy to left abdomen open ventral incisional hernia repair (2021): CAD, diabetes, parotid mass with obstructive sleep apnea on CPAP, depression, anxiety, peripheral neuropathy, history of LA grade C esophagitis who is able to
eat and drink without use of peg for several months. In review of chart pt with multiple recurrent admission since end of December with recurrent small bowel obstruction and also admission in January with femur fracture. She now presents 03/10 with
recurrent abdominal pain and vomiting. On admission noted with WBC 12,600 hbg 8.8, platelets 96,000, creat 2.3, glucose 118, bili 0.7, AST 11, alt <10, alk phos 86, albumin 4 and lipase of 52. Ct on admission with fluid filled dilated SB loops with
concern for enteriti, ileus, or developing small bowel obs with limitation without contrast and multiple chronic findings.
At this time patient admits to continued belching. She admits to period of nausea and vomiting and continued 8/10 upper abdominal pain. Pain in 10/10 at worst and 5/10 when pain is best. She also admits to vomiting variable amounts at times
but denies hematemesis. She otherwise denies issues with odynophagia, dysphagia, GERD, diarrhea/constipation(pt with ileostomy) blood or black in stools. Last procedures as noted with flex 2015 with stricture at 18cm unable to traverse from
radiation, diffuse inflammation and was referred to surgery. EGD recently completed with intact peg normal esophagus and duodenum.
Past Medical History
Past Medical History: Fibromyalgia, NIDDM, Renal Failure (CKD, nephrolithiasis ), Psychiatric (PTSD) and Other (CVA 08/2023 with residual R hemiparesis (on Plavix), s/p PEG tube, HTN, CKD-3, RA, COPD, hypothyroidism, cervical cancer (s/p
hysterectomy, chemo, radiation), radiation colitis requiring colectomy with ileostomy at [facility] 2015, CAD, NIDDM, parotid mass, RACHEL (on CPAP), depression, anxiety, neuropathy,)
Past Surgical History: Other (Bowel resection and colostomy due to colon perforation Colostomy Revision x 4 and ultimate Ileostomy (2021) G-tube Placement Hemiglossectomy & parotidectomy Multiple Digital Amputations, PAD with femoral graft, cardiac
stents )
Social History
Tobacco: Smoker
Alcohol: None
Drug: None
Personal:
Living: Alf
Employment: Disabled
Family History
Family History: Other (no family history of GI malignancies)
Allergies / Home Medications
Allergy/AdvReac Type Severity Reaction Status Date / Time
adhesive Allergy TAPE-rash Verified 03/10/25 13:03
and itching
infliximab (From Remicade) Allergy Anaphylaxis Verified 03/10/25 13:03
latex Allergy Rash, Verified 03/10/25 13:03
itching,
Hives
Penicillins Allergy Unknown, Verified 03/10/25 13:03
tolerated
amoxicillin
and
ampicillin
in the past
Sulfa (Sulfonamide Allergy Hives, rash Verified 03/10/25 13:03
Antibiotics)
�Medication �Instructions �Recorded
clopidogrel 75 mg tablet (Plavix) 75 mg PO DAILY Heart 06/25/23
Disease/Condition
acetaminophen 325 mg tablet 650 mg PO Q4HPRN PRN mild 01/22/24
pain/temp>100F
atorvastatin 40 mg tablet 40 mg PO HS High Cholesterol 01/22/24
cholecalciferol (vitamin D3) 25 25 mcg PO DAILY Supplement 01/22/24
mcg (1,000 unit) tablet (Vitamin
D3)
loratadine 10 mg tablet 10 mg PO DAILY Allergies 01/22/24
melatonin 5 mg tablet 5 mg PO HS Sleep 01/22/24
sodium bicarbonate 650 mg tablet 650 mg PO Q8H Electrolyte Repletion 01/22/24
sodium phosphates 19 gram-7 118 ml SD DAILYPRN PRN if dulcolax 01/22/24
gram/118 mL enema (Fleet Enema) is ineffective after 24hrs
bisacodyl 10 mg rectal suppository 10 mg SD DAILYPRN PRN if no bm 07/15/24
(Dulcolax (bisacodyl)) aftr mom
diclofenac sodium 1 % topical gel 0 g topical TID left shoulder 07/15/24
famotidine 20 mg tablet 20 mg PO HS Gastrointestinal Issue 07/15/24
buspirone 10 mg tablet 10 mg PO BID Mental Health/Anxiety 01/20/25
magnesium hydroxide 400 mg/5 mL 30 ml PO [id number] PRN no bm x3 days 01/20/25
oral suspension (Milk of Magnesia)
levothyroxine 112 mcg tablet 112 mcg PO DAILY Thyroid 02/06/25
pantoprazole 40 mg tablet,delayed 40 mg PO DAILY Gastrointestinal 02/06/25
release Issue
venlafaxine 100 mg tablet 100 mg PO BID Mental Health/Anxiety 02/18/25
lorazepam 0.5 mg tablet (Ativan) 0.25 mg (1/2 x 0.5 mg) PO BID 02/26/25
Mental Health/Anxiety #4 tabs
oxycodone 5 mg tablet 5 mg PO Q4HPRN PRN mod pain #10 02/26/25
tabs
quetiapine 25 mg tablet (Seroquel) 12.5 mg PO BID Mental 03/09/25
Health/Anxiety
doxycycline hyclate 100 mg capsule 100 mg PO BID Infection 03/10/25
gabapentin 300 mg capsule 300 mg PO TID Neurological 03/10/25
Condition
menthol 0.44 %-zinc oxide 20.6 % 1 applic topical TID b/l buttock 03/10/25
topical ointment (Moisture Barrier
Ointment)
mupirocin 2 % topical ointment 1 applic topical DAILY right thigh 03/10/25
Review of Systems
-
History Source: Patient
Constitutional: Reports No Symptoms
EENT: Reports No Symptoms
Respiratory: Reports No Symptoms
Cardiac: Reports No Symptoms
Abdomen/GI: Reports Abdominal Pain, Nausea, Vomiting and Other (chronic loose stool with ileostomy denies large volumes )
: Reports No Symptoms
Musculoskeletal: Reports No Symptoms
Skin: Reports No Symptoms
Neurological: Reports Weakness (s/p CVA with right sided weakness )
Endocrine: Reports No Symptoms
Hematologic/Lymphatic: Reports No Symptoms
Vital Signs
Temp Pulse Resp BP Pulse Ox
97.9 F 47 18 148/75 97
03/12/25 07:45 03/12/25 07:45 03/12/25 07:45 03/12/25 07:45 03/12/25 07:45
Physical Exam
Exam
General: Well Developed, Well Nourished and Other (chronic ill appearing )
HEENT: Normocephalic and Anicteric
Respiratory: Clear
Cardiac: Regular Rhythm
GI: Soft, Non Tender, Tender (lower abdominal tenderness) and Other (peg intact no buried bumper, ileostomy with liquid brown drainage)
Rectal: Brown
Musculoskeletal: No Clubbing and No Cyanosis
Skin: Warm and Dry
Neuro: Awake, Alert, Oriented and Other (right side weakness, slurred speech )
Psych: Calm
Results
WBC 7.7 10^3/uL (4.8-10.8) 03/12/25 08:28
Hgb 7.8 g/dL (12.0-16.0) L 03/12/25 11:06
Hct 23.5 % (37.0-47.0) L 03/12/25 11:06
MCV 95.4 fL (81.0-99.0) 03/12/25 08:28
Plt Count 88 10^3/uL (130-400) L 03/12/25 08:28
Absolute Neuts (auto) 6.4 10^3/uL (1.4-6.5) 03/12/25 08:28
Sodium 143 mmol/L (135-145) 03/12/25 08:27
Potassium 3.6 mmol/L (3.5-5.1) 03/12/25 08:27
Chloride 115 mmol/L (98-107) H 03/12/25 08:27
Carbon Dioxide 19 mmol/L (22-30) L 03/12/25 08:27
BUN 27 mg/dl (7-17) H 03/12/25 08:27
Creatinine 1.6 mg/dL (0.6-1.0) H 03/12/25 08:27
Calcium 9.4 mg/dl (8.4-10.2) 03/12/25 08:27
Total Bilirubin 0.6 mg/dl (0.2-1.3) 03/12/25 08:27
AST 10 U/L (14-36) L 03/12/25 08:27
ALT < 10 U/L (0-35) 03/12/25 08:27
Alkaline Phosphatase 81 U/L (38-126) 03/12/25 08:27
Lipase 52 U/L (23-300) 03/10/25 13:12
Diagnostic Image Results:
03/10/25 CT Abd/pel Without Iv Or Oral
Fluid-filled mildly dilated small bowel loops for which considerations include an enteritis, ileus, or developing/partial small bowel obstruction. Somewhat limited in the absence of oral and intravenous contrast.
Large number of bilateral intrarenal calculi and/or renal vascular calcifications.
Other chronic findings, as detailed above.
03/09/25 CR Obstruct Series W/pa Chest
Paucity of intestinal bowel gas limiting evaluation with a few nonspecific air-fluid levels on decubitus view. No gross findings to suggest intestinal obstruction. No free air.
02/23/25 RF Sm Intest ONLY-Single Cont
No fluoroscopic evidence for a small bowel obstruction.
02/17/25 CT Abd/pel Without Iv Or Oral
1. Mild fluid distention of small bowel loops in the right side of the abdomen demonstrating mild wall thickening and surrounded by mild mesenteric edema. Diagnostic possibilities are (1) an acute infectious or inflammatory enteritis or (2) a
partial small bowel obstruction.
2. Large number of left intrarenal calculi, mild left hydroureteronephrosis, and 4 mm partially obstructing calculus in the distal left ureter which appears unchanged.
3. Small number of right intrarenal calculi.
4. Mild hepatosplenomegaly.
5. Left anterior abdominal wall ostomy an oversewn rectum.
6. Previous DANIEL-BSO.
7. Percutaneous gastrostomy tube in place.
8. Severe discogenic degenerative disease at L3/L4 and L4/L5.
01/24/25 CT Abd/pel (oral only)-DH Only
No findings to suggest umbilical hernia or intestinal obstruction.
Tiny gallstones and/or gallbladder sludge.
Additional nonurgent findings stable in comparison with several recent prior studies, as detailed above.
01/20/25 CT a/p Without Iv Or Oral
1. No CT evidence of intestinal obstruction. Changes of prior partial colon resection and left lower quadrant ostomy.
2. PEG tube remains in satisfactory position.
3. Mild hydronephrosis of the right kidney, and mild right hydroureter. No obstructing stone is appreciated. Findings are similar compared to prior CT.
01/16/25 CT Abd/pel (oral only)-DH Only
1. No acute findings within the abdomen or pelvis.
2. Chronic incidental findings detailed above.
01/13/25
No evidence of small bowel obstruction
Prior GI Procedures:
Endoscopy 01/26/25, Dr. Berger
- Normal esophagus.
- Prior PEG with bumper in place.
- Normal examined duodenum.
- No specimens collected.
Endoscopy, 2017, Dr. Perez:
Normal duodenal bulb and second portion of the duodenum. Biopsied.
- Erythematous mucosa in the antrum. Biopsied.
- Small hiatal hernia.
- Normal cardia, gastric fundus and gastric body.
- LA Grade C reflux esophagitis.
- Z-line irregular, 40 cm from the incisors.
Flexible sigmoidoscopy, 2016, Dr. Prieto:
- Stricture at 18 cm proximal to the anus. Unable to traverse. Biopsied. Likely benign from radiation.
- Diffuse mild- moderate inflammation was found in the
rectum (less severe in the rectum) and in the sigmoid
colon, rule out radiation colitis. Biopsied.
Recommendation: - Discharge patient to home.
- Low residue diet as tolerated.
- Await pathology results.
- Refer to a colo-rectal surgeon
Colonoscopy, 2012, Dr. Perez:
Inflamed, nodular, scarred and ulcerated mucosa.
Biopsied.
- Stricture colon. Follow up with surgery was recommended.
Assessment / Plan
-
Pt is a 59 year old female with a past medical history recurrent partial small bowel obstruction, ileus, prior pneumonia, prior cardiac stents, CVA 08/2023 with residual right sided hemiparesis, PAD with femoral graft, nephrolithasis, status
post PEG tube, hypertension, CKD 3, RA, COPD, hypothyroidism, UTI, cervical cancer status post hysterectomy, chemoradiation, radiation colitis requiring colectomy with ileocolostomy done at [facility] in 2015, complicated by parastomal hernia status
post re-sitting of end ileostomy to left abdomen open ventral incisional hernia repair (2021): CAD, diabetes, parotid mass with obstructive sleep apnea on CPAP, depression, anxiety, peripheral neuropathy, history of LA grade C esophagitis who is
able to eat and drink without use of peg for several months. In review of chart pt with multiple recurrent admission since end of December with recurrent small bowel obstruction and also admission in January with femur fracture. She now presents 03/10
with recurrent abdominal pain and vomiting. On admission noted with WBC 12,600 hbg 8.8, platelets 96,000, creat 2.3, glucose 118, bili 0.7, AST 11, alt <10, alk phos 86, albumin 4 and lipase of [address]. [address] on admission with fluid filled dilated SB loops
with concern for enteritis, ileus, or developing small bowel obs with limitation without contrast and multiple chronic findings.
Impression:
Abdominal pain- acute on chronic with vomting
CT with concern for enteritis vs partial SBO
Multiple abd surgeries with chronic ileostomy
anemia
thrombocytopenia
Chronic opioid use
hx chronic dysphagia with peg-- currently taking oral diet prior to admission
chronic peg
recent femur fx with repair
other med problems:
prior pneumonia, prior cardiac stents, CVA 08/2023 with residual right sided hemiparesis, PAD with femoral graft, nephrolithasis, status post PEG tube, hypertension, CKD 3, RA, COPD, hypothyroidism, UTI, cervical cancer status post hysterectomy,
chemoradiation, radiation colitis requiring colectomy with ileocolostomy done at [facility] in 2015, complicated by parastomal hernia status post re-sitting of end ileostomy to left abdomen open ventral incisional hernia repair (2021): CAD, diabetes,
parotid mass with obstructive sleep apnea on CPAP, depression, anxiety, peripheral neuropathy, history of LA grade C esophagitis who is able to eat and drink without use of peg for several months.
Recommendations
Etiology of ongoing symptoms with chronic abdominal pain and occasional vomiting with concern underlying chronic enteritis with hx prior radiation vs obstructive process vs other
appreciate surgical recs
to start tube feeds agree with trial of elemental feeding and monitor tolerance with multiple readmission for similar symptoms
etiology of anemia unclear -- no signs of aggressive GI bleeding--- also concurrent thrombocytopenia -- has been chronic with hx bone marrow bx and heme eval in past
cont to trend, transfuse as needed
check US abdomen to eval for any underlying liver process
hold repeat EGD
support given as frustrated with multiple chronic issues
-
-
Thank you for consultation and allowing me to participate in the patient's care. Please call the bi consultant GI physician during the after hours with any questions or concerns.
--- NOTE | 2025-03-12 13:26 | W.PN.UPDATE ---
Update Note
Progress Note Update
Discussed with in details. Consent for blood transfusion if needed signed in the chart
--- NOTE | 2025-03-12 13:32 | W.PN.GS2 ---
Today's Communication / Plan
-
`
Assessment / Plan
-
Assessment: 59-year-old female with a h/o CAD, PAD with multiple digit amputations, status post fem-fem and femoropopliteal bypasses, CVA (on Plavix) with right hemiparesis, parotid mass tx surgically with PEG placed, Cervical ca tx with DANIEL,
chemo, XRT, Radiation colitis with bowel perforation s/p completion colectomy with end ileostomy complicated by parastomal hernia s/p re-siting of end ileostomy to left abdomen, and open ventral incisional hernia repair with unilateral [id number] by
Lasha.
Multiple admissions for pSBO and probable chronic small bowel dysmotility in setting of complex abdominal and surgical history,
This remains a challenging case given her multiple abdominal surgeries, mesh and history of radiation she has high risk and essentially prohibitive risk for potential complications with any surgical exploration/lysis. Furthermore, repeat small
bowel follow-through studies have shown no persistent obstruction and a 60 minute transit time to the ileostomy. Nevertheless she keeps coming back to the hospital with similar complaints.
ostomy remains functional.
Plan: Cap PEG and after discussions with patient she is agreeable to resuming tube feeds for enteral intake and nutritional needs rather than PO.
okay for clear liquid diet for comfort
Trial to see if a tube feeding and more elemental diet is better tolerated by patient
Subjective Data
-
Date of Service: March 12, 2025
Patient seen and examined.
Was sleeping/resting comfortably. Easily awoke.
Reports centralized abdominal pain. No nausea or vomiting.
Ostomy functioning
Objective Data
-
Intake and Output
03/11/25 03/12/25 03/13/25
06:59 06:59 06:59
Intake Total 480 / 480 1380 / 1380
Output Total 350 / 350 1925 / 192
Balance 130 / 130 -545 / -545
Intake:
Oral fluids 480 / 480
IV fluids (Total) 480 / 480 900 / 900
Output:
Liquid stool amount 725 / 725
Colostomy 725 / 725
Gastrointestinal tube output ( 300 / 300
Total)
Gastrostomy 300 / 300
Urine, Ulrich 100 / 100
Urine, Voided 350 / 350 800 / 800
Other:
How many times incontinent 1
SATURATED amount urine
Vital Signs
Temp Pulse Resp BP Pulse Ox
97.9 F 47 18 148/75 97
03/12/25 07:45 03/12/25 07:45 03/12/25 07:45 03/12/25 07:45 03/12/25 07:45
Lab Results
03/12/25 08:27
Calcium 9.4 mg/dl (8.4-10.2) 03/12/25 08:27
Total Bilirubin 0.6 mg/dl (0.2-1.3) 03/12/25 08:27
AST 10 U/L (14-36) L 03/12/25 08:27
ALT < 10 U/L (0-35) 03/12/25 08:27
Alkaline Phosphatase 81 U/L (38-126) 03/12/25 08:27
Total Protein 6.8 g/dl (6.3-8.2) 03/12/25 08:27
Albumin 3.3 g/dl (3.5-5.0) L 03/12/25 08:27
Physical Exam
-
NAD AAO x 3
ABD: Soft, obese, no distention noted.
Generalized tenderness on palpation. No rebound, no rigidity.
Gastrostomy tube to gravity bag drainage with gastric contents.
Ileostomy with liquid stool and air
--- NOTE | 2025-03-12 14:43 | CM ---
CM following re: discharge planning.
Reviewed pt's chart, met with pt.
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
Pt stated she has 2 supportive daughters and they visiting her at [facility] often
[facility] nursing report: [phone]
Discharge instructions fax: [phone]
D/C plan: return back to [facility].
--- NOTE | 2025-03-12 14:53 | PTOTSP ---
Dysphagia Eval
Patient with chronic baseline dysphagia (mild-mod oral and mod pharyngeal dysphagia on video swallow 07/2024) but is tolerating oral intake without signs concerning for aspiration complications at present. She declined trials beyond thin liquids
due to abdominal pain.
Recommend:
1. Thin Liquids
2. Meds via PEG
3. Oral care 3x daily
4. Strategies: upright to 90 degrees, small sips/bites, slow rate, HEAD TURN RIGHT and TUCK chin with liquids, reflux precautions
5. Will trial advanced solids if/when appropriate
[2025-03-12 15:20] VITALS: BP 174/91
[2025-03-12] MEDS: ZINC OXIDE OINTMENT 1 APPLIC TOPICAL (16:50)
[2025-03-12 18:31] LABS: Glucose - Point of Care 83 mg/dl (70-99)
[2025-03-12] MEDS: LIPITOR 40 MG PO (20:52)
[2025-03-12] MEDS: TYLENOL 650 MG PO (20:52)
[2025-03-12] MEDS: MELATONIN 5 MG PO (20:53)
[2025-03-12 21:00] LABS: Hematocrit 26.3 % (37.0-47.0); Hemoglobin 8.7 g/dL (12.0-16.0)
[2025-03-12] MEDS: PEPCID PO (23:15)
[2025-03-12 23:36] VITALS: BP 126/70
[2025-03-13] MEDS: SODIUM BICARBONATE 650 MG TUBE ×3 (00:16→15:39)
[2025-03-13] MEDS: ZINC OXIDE OINTMENT 1 APPLIC TOPICAL ×4 (00:17→23:12)
[2025-03-13] MEDS: SYNTHROID 112 MCG TUBE (05:44)
[2025-03-13] MEDS: DILAUDID 0.5 MG IV ×3 (06:36→19:47)
[2025-03-13] MEDS: PROTONIX 100 IV (07:14)
[2025-03-13 07:48] LABS: % Basophils 0.3 % (0-2); % Eosinophils 4.3 % (0-6); % Immature Granulocytes 0.3 % (0-0.5); % Lymphocytes 10.6 % (20.5-51.1); % Neutrophils 78.5 % (42.2-75.2); Absolute Eosinophils 0.3 10^3/uL (0-0.7); Absolute Lymphocytes 0.7 10^3/uL (1.2-3.4); Absolute Monocytes 0.4 10^3/uL (0.1-0.6); Absolute Neutrophils 4.9 10^3/uL (1.4-6.5); Hematocrit 25.1 % (37.0-47.0); Hemoglobin 8.4 g/dL (12.0-16.0); Mean Corp Hgb Conc. 33.5 g/dL (33.0-37.0); Mean Corpuscular Hgb 31.6 pg (27.0-31.0); Mean Corpuscular Volume 94.4 fL (81.0-99.0); Mean Platelet Volume 9.2 fL (7.4-10.4); Nucleated Red Blood Cells % 0 %; Platelet Count 96 10^3/uL (130-400); Red Blood Cell Count 2.66 10^6/uL (4.20-5.40); White Blood Cell Count 6.2 10^3/uL (4.8-10.8)
[2025-03-13 08:00] VITALS: BP 122/92
--- NOTE | 2025-03-13 08:12 | W.PN.GS2 ---
Addendum entered and electronically signed by Rubén Adkins MD 03/13/25 09:31:
pt seen and examined in follow up with VIDEO PRODUCTION ENGINEER
agree with documented progress note
pt just returned from US, abd pain at baseline
AFVSS
ABD: soft, diffuse tenderness. ostomy with large volume liquid stool
A/P: advance TF to goal in effort to see if helps with improved pain control/nausea
start with continuous feeds then if tolerated would transition to bolus TF
okay for oral intake as well for comfort but if it triggers symptoms would avoid as able
Original Note:
Today's Communication / Plan
-
Tube feeding diet
Assessment / Plan
-
Assessment: 59-year-old female with a h/o CAD, PAD with multiple digit amputations, status post fem-fem and femoropopliteal bypasses, CVA (on Plavix) with right hemiparesis, parotid mass tx surgically with PEG placed, Cervical ca tx with DANIEL,
chemo, XRT, Radiation colitis with bowel perforation s/p completion colectomy with end ileostomy complicated by parastomal hernia s/p re-siting of end ileostomy to left abdomen, and open ventral incisional hernia repair with unilateral [id number] by Dr
Lasha.
Multiple admissions for pSBO and probable chronic small bowel dysmotility in setting of complex abdominal and surgical history,
This remains a challenging case given her multiple abdominal surgeries, mesh and history of radiation she has high risk and essentially prohibitive risk for potential complications with any surgical exploration/lysis. Furthermore, repeat small
bowel follow-through studies have shown no persistent obstruction and a 60 minute transit time to the ileostomy. Nevertheless she keeps coming back to the hospital with similar complaints.
ostomy remains functional.
AFVSS
CBC stable
CMP pending, add on mag/phos
Plan: NPO for GI testing
Tolerated trickle tube feedings yesterday
okay for clear liquid diet for comfort. Will resume enteral tube feedings s/p GI testing with Osmo 1.2 titrating up to goal of 70ml/hr
Trial to see if a tube feeding and more elemental diet is better tolerated by patient
Subjective Data
-
Date of Service: March 13, 2025
Patient seen and examined at bedside. Denies n/v. Pain to the lower mid abdomen persists, no worse than previous. Thirsty.
Objective Data
-
Intake and Output
03/12/25 03/13/25 03/14/25
06:59 06:59 06:59
Intake Total 1380 / 1380 1130 / 1130
Output Total 1925 / 1925 2099 / 2099
Balance -545 / -545 -970 / -970
Intake:
Oral fluids 480 / 480 120 / 120
IV fluids (Total) 900 / 900 800 / 800
IV piggybacks 80 / 80
Tube feeding
Feeding tube flush amount 120 / 120
Output:
Liquid stool amount 725 / 725 650 / 650
Colostomy 725 / 725 650 / 650
Gastrointestinal tube output ( 300 / 300
Total)
Gastrostomy 300 / 300
Urine, Ulrich 100 / 100
Urine, Voided 800 / 800 1450 / 1450
Other:
How many times incontinent 1
SATURATED amount urine
Vital Signs
Temp Pulse Resp BP Pulse Ox
98.2 F 69 14 126/70 98
03/12/25 23:36 03/12/25 23:36 03/12/25 23:36 03/12/25 23:36 03/12/25 23:36
Lab Results
03/13/25 07:05
Calcium 9.4 mg/dl (8.4-10.2) 03/12/25 08:27
Total Bilirubin 0.6 mg/dl (0.2-1.3) 03/12/25 08:27
AST 10 U/L (14-36) L 03/12/25 08:27
ALT < 10 U/L (0-35) 03/12/25 08:27
Alkaline Phosphatase 81 U/L (38-126) 03/12/25 08:27
Total Protein 6.8 g/dl (6.3-8.2) 03/12/25 08:
Albumin 3.3 g/dl (3.5-5.0) L 03/12/25 08:27
Physical Exam
-
NAD AAO x 3
ABD: Soft, obese, no distention noted.
Generalized tenderness on palpation to lower mid abd. No rebound, no rigidity.
Gastrostomy tube clamped
Ileostomy with liquid stool and air
[2025-03-13 09:00] LABS: Blood Urea Nitrogen 24 mg/dl (7-17); Calcium 9.4 mg/dl (8.4-10.2); Carbon Dioxide 22 mmol/L (22-30); Chloride 113 mmol/L (98-107); Estimated Creatinine Clearance 45 ml/min; Glucose 100 mg/dl (70-99); Magnesium 1.6 mg/dl (1.6-2.3); Phosphorus 2.9 mg/dl (2.5-4.5); Potassium 3.3 mmol/L (3.5-5.1); Sodium 142 mmol/L (135-145); eGFR 36.92
[2025-03-13] MEDS: CLARITIN 10 MG TUBE (09:42)
[2025-03-13] MEDS: BACTROBAN 2% OINTMENT 1 APPLIC TOPICAL (09:42)
[2025-03-13] MEDS: NEURONTIN 200 MG TUBE ×3 (09:42→23:04)
[2025-03-13] MEDS: EFFEXOR 100 MG TUBE ×2 (09:43→19:49)
[2025-03-13] MEDS: SEROQUEL 12.5 MG TUBE ×2 (09:43→19:49)
[2025-03-13] MEDS: BUSPAR 10 MG TUBE ×2 (09:44→19:49)
[2025-03-13] MEDS: VITAMIN D3 (cholecalciferol) 25 MCG PO (09:44)
[2025-03-13] MEDS: ATIVAN 0.25 MG TUBE ×2 (09:52→19:48)
[2025-03-13] MEDS: DILAUDID 2 MG PO (09:52)
--- NOTE | 2025-03-13 10:24 | PN.CDI ---
CDI
- -
CDI:
Physician Documentation Request
Admit Date: 03/12/25 07:15
Dear Doctor, Tera,
Patient admitted with partial small bowel obstruction.
03/11 Nursing skin assessment, 'Stage 1 bilateral heels pressure injuries, POA.'
Physician documentation of the type and location of wounds is required for compliant documentation. Based on the above clinical findings and your assessment, please provide the following in your progress note:
Type (etiology) of ulcer/wound:
- Pressure (decubitus) ulcer
- Other
For a pressure ulcer, please also include the stage* of the ulcer:
- Stage 1 - Skin intact, non-blanchable redness
- Stage 2 - Partial thickness loss of dermis, includes intact or open blister
- Stage 3 - Full thickness tissue not including bone, tendon or muscle
- Stage 4 - Full thickness tissue loss, including exposed bone, tendon or muscle
- Unstageable - Full thickness loss in which the base of the ulcer is covered by slough (yellow, fajardo, mcgarry, green or brown) and/or eschar (fajardo, brown or black) in the wound bed.
- Unable to determine
Use of terms such as suspected, likely, concern for, or probable (associated with a specific diagnosis that is being evaluated, monitored, or treated as if it exists) are acceptable and can be coded in the inpatient setting, when documented at the
time of discharge.
Thank you,
Sonja SALMON,RN,CCDS
CDI Specialist
Available via tiger text
Please use your independent medical judgment in providing your response.
*Source: National Pressure Ulcer Advisory Panel (NPUAP)
--- NOTE | 2025-03-13 11:11 | W.PN.HOSP.TC ---
Today's Communication/Plan
-
shipbuilding draftsperson for tube feeds
US renal
switch to PPI BID
Assessment / Plan
Assessment / Plan
59yo F with PMHX of chronic abdominal pain 2/2 adhesions and multiple episodes of ileus and SBO, CVA with PAD s/pright to left femoral to femoral artery bypass with sartorius flaps, L hemiparesis, PEG tube, right femur fracture s/p repair on
03/09/25, HTN, CKD stage 3, RA, COPD, RACHEL on CPAP, hypothyroidism, Hx of cervical CA s/p hysterectomy and RT, radiation colitis s/p colectomy and ileostomy, CAD, DM, parotid mass, RACHEL, depression, neuropathy, recurrent SBO came form facility with
acute on chronic abdominal pain and recurrent partial SBO on CT. Patient had 9 CT abd/pelvis over past 12months and with similar findings of early partial SBO that later was resolving without surgical intervention. Abdominal pain Hx is extensive,
dating back to at least 2019.
As per previous GenSx evaluation: with post RT and postOP changes and possible slow transit causing pain - risks of new surgical intervention most likely overweight benefits witgh an absence of clear transition point
Current CT with fluid-filled mildly dilated small bowel with concern for enteritis, ileus or early pSBO
A/P:
#Acute on chronic abdominal pain 2/2 postOP and postRT adhesions and slow transit with recurrent partial SBO
#Possible enteritis with mild leukocytosis
Ostomy bag with liquid brown fluid - send for c.diff, cultures, leukocytes
NPO and PEG to gravity
GenSx consult pending
Pain mgmt
EGD on 01/26/25 with no significant findings, recommended to cont PPI, discussion with pain mgmt for intensification of pain regimen
Agreed to PEG tube feeds as a primary source of caloriesto see if that will relieve the pain as more liquid intake rather then what patient usually eating, oral intake to cont for pleasure. Coating Operator consult for feeds. Recommended to have PEG to
gravity in STR if worsening abdominal pain
As per genSx - patient had very quick passage of the contrast to ostomy - 6h. No concern for gastroparesis - will intensify pain mgmt
#RHETT on CKD stage 3
#Nephrolithiasis
with Hx of ureteral stent in [address]
No obstruction on CT, however mild renal pelvis dilation on R on US RUQ - dedicated US renal pending to exclude ureteral stone
Will benefit from outpatient urology
2/2 dehydration
IVF and encourage PO intake
follow Cr - improving, baseline 1.5-1.7
#Chronic dysphagia s/p PEG now with oral intake
IDDS6 diet when able
#DM type 2 with circulatory complications
HgbA1c 5.2% in December 2024
cont diet control
#Chronic anemia with acute Hgb drop
ppi drip and pending GI,. however EGD on 01/26 - with no significant findings
Stop hep ppx, start compression Ppx
serial H&H
Plavix already on hold
No iron deficiency, normal B12 and folate as of January 2025
#essential HTN
#RA
#COPD not in exacerbation
#Hypothyroidism
#Hx of CVA
#HLD
#Neuropathy
#Anxiety d/o
#Hx of parotid mass s/p s/p Partial Glossectomy
cont home meds
#Chronic anemia and thrombocytopenia
no over cyrrhosis on US, fatty liver disease
Hx of BM biopsy with neg results oin 2012
2/2 CKD, poor generalized status, poor nutrition 2/2 chronic abd pain
outpatient hem is reasonable
#PAD s/p L femoral graft
Recent US showed LE vascular duplex showed bilateral moderate arterial insufficiency - recommended cont Plavix and outpatient follow up with vascular
DVT ppx SCDs
DNR/DNI
I have spent at least 56min reviewing chart, test results, communication with consultants and providing direct patient care
Anticipated Discharge: Within 24 hours
Subjective/Interval History
-
Date of Service: March 13, 2025
Objective Data
-
Labs:
Laboratory Results
03/13/25 03/13/25
03:00 07:05
WBC 6.2
Hgb Cancelled 8.4 L
Hct Cancelled 25.1 L
Plt Count 96 L
Sodium 142
Potassium 3.3 L
Chloride 113 H
Carbon Dioxide 22
BUN 24 H
Creatinine 1.6 H
Glucose 100 H
Calcium 9.4
Vital Signs:
Vital Signs
Temp Pulse Resp BP Pulse Ox
98.2 F 79 16 122/92 98
03/13/25 08:00 03/13/25 08:00 03/13/25 08:00 03/13/25 08:00 03/13/25 08:00
I&O
03/12/25 03/13/25 03/14/25
06:59 06:59 06:59
Intake Total 1380 / 1380 1130 / 1130
Output Total 1924 / 1924 2099 / 2099
Balance -545 / -545 -970 / -970
Review of Systems
-
History Source: Patient
All other systems: Reviewed and negative
Abdomen/GI: Reports Abdominal Pain
Physical Exam
-
General: Comfortable
HEENT: Normocephalic
Cardiac: Regular Rhythm
GI: Soft, Nontender and Nondistended
Genito-urinary: No Costovertebral Tender
Neuro: Awake, Alert, Oriented and AO x 3
Psych: Calm
--- NOTE | 2025-03-13 12:39 | CM ---
CM following re: discharge planning.
Reviewed pt's chart, met with pt.
Per UR CM pt has been upgraded to inpatient level of care as of 03/11/25. IMM reviewed, placed on chart, pt has a copy.
Pt is a long-term care resident at [facility], on Medicaid 15 day bed hold, Pt is bed/chair bound, self propel W/C, 2 person assist for transfers, AxO 2-3x
Pt stated she has 2 supportive daughters and they visiting her at [facility] often
[facility] nursing report: [phone]
Discharge instructions fax: [phone]
D/C plan: return back to [facility].
[2025-03-13] MEDS: KCL ELIXIR 40 MEQ TUBE (14:15)
--- NOTE | 2025-03-13 15:10 | W.PN.GI.CBS2 ---
Today's Communication / Plan
-
Continue pain control
Continue tube feeds as tolerated and p.o. intake as tolerated
On pantoprazole twice daily
Assessment / Plan
-
Pt is a 59 year old female with a past medical history recurrent partial small bowel obstruction, ileus, prior pneumonia, prior cardiac stents, CVA 08/2023 with residual right sided hemiparesis, PAD with femoral graft, nephrolithasis, status
post PEG tube, hypertension, CKD 3, RA, COPD, hypothyroidism, UTI, cervical cancer status post hysterectomy, chemoradiation, radiation colitis requiring colectomy with ileocolostomy done at [facility] in 2015, complicated by parastomal hernia status
post re-sitting of end ileostomy to left abdomen open ventral incisional hernia repair (2021): CAD, diabetes, parotid mass with obstructive sleep apnea on CPAP, depression, anxiety, peripheral neuropathy, history of LA grade C esophagitis who is
able to eat and drink without use of peg for several months. In review of chart pt with multiple recurrent admission since end of December with recurrent small bowel obstruction and also admission in January with femur fracture. She now presents 03/10
with recurrent abdominal pain and vomiting. On admission noted with WBC 12,600 hbg 8.8, platelets 96,000, creat 2.3, glucose 118, bili 0.7, AST 11, alt <10, alk phos 86, albumin [address] lip[address] on admission with fluid filled dilated SB loops
with concern for enteritis, ileus, or developing small bowel obs with limitation without contrast and multiple chronic findings.
Impression:
Abdominal pain- acute on chronic with vomting
CT with concern for enteritis vs partial SBO
Multiple abd surgeries with chronic ileostomy
anemia
thrombocytopenia
Chronic opioid use
hx chronic dysphagia with peg-- currently taking oral diet prior to admission
chronic peg
recent femur fx with repair
other med problems:
prior pneumonia, prior cardiac stents, CVA 08/2023 with residual right sided hemiparesis, PAD with femoral graft, nephrolithasis, status post PEG tube, hypertension, CKD 3, RA, COPD, hypothyroidism, UTI, cervical cancer status post hysterectomy,
chemoradiation, radiation colitis requiring colectomy with ileocolostomy done at [facility] in 2016, complicated by parastomal hernia status post re-sitting of end ileostomy to left abdomen open ventral incisional hernia repair (2021): CAD, diabetes,
parotid mass with obstructive sleep apnea on CPAP, depression, anxiety, peripheral neuropathy, history of LA grade C esophagitis who is able to eat and drink without use of peg for several months.
Recommendations
Etiology of ongoing symptoms with chronic abdominal pain and occasional vomiting with concern underlying chronic enteritis with hx prior radiation versus pain related to adhesions from prior multiple surgeries causing intermittent partial small
bowel obstruction less likely mesenteric ischemia.
Agree with pain management to help with pain control
Use PEG for intermittent drainage when she has worsening pain or abdominal distention
Currently tolerating tube feeds without increased residuals and no vomiting and does have adequate ileostomy output although does have liquid output sometimes was tested for C. difficile 03/11 negative also negative for Campylobacter and Shiga toxin,
Salmonella Shigella pending
Further recommendations per surgery
She did have a small bowel follow-through on 02/23 with no evidence of obstruction or stricture and no ileus noted either.
etiology of chronic anemia likely multifactorial from AOCD/CKD and less likely chronic GI blood loss-- no signs of active GI bleeding--- also concurrent thrombocytopenia -- has been chronic with hx bone marrow bx and heme eval in past
No obvious cirrhosis noted on imaging studies but could have cirrhosis due to MAFLD
Hold on repeat EGD unless she has active bleeding
Will sign off and will be available as needed
Subjective
Subjective
Date of Service: March 13, 2025
Patient appears comfortable. tolerating tube feeds discussed with nurse no vomiting reported and tube feed residuals are also minimal. She did have liquid stool in her ileostomy
Objective
Data Reviewed
Laboratory Data:
Laboratory Results
03/13/25 07:05
03/13/25 07:05
Laboratory Results
Phosphorus 2.9 mg/dl (2.5-4.5) 05/30/25 07:05
Magnesium 1.6 mg/dl (1.6-2.3) 03/13/25 07:05
Total Bilirubin 0.6 mg/dl (0.2-1.3) 03/12/25 08:27
AST 10 U/L (14-36) L 03/12/25 08:27
ALT < 10 U/L (0-35) 03/12/25 08:27
Alkaline Phosphatase 81 U/L (38-126) 03/12/25 08:27
Lipase 52 U/L (23-300) 03/10/25 13:12
03/13/25 US abdomen
IMPRESSION:
1. Moderate diffuse liver disease.
2. Mild dilatation of the common bile duct.
3. Mild dilatation of the right intrarenal collecting system.
Vital Signs and I&O:
Vital Signs
Temp Pulse Resp BP Pulse Ox
98.2 F 79 16 122/92 98
03/13/25 08:00 03/13/25 08:00 03/13/25 08:00 03/13/25 08:00 03/13/25 08:00
I&O
03/12/25 03/13/25 03/14/25
06:59 06:59 06:59
Intake Total 1380 / 1380 1130 / 1130
Output Total 1924 / 192 2100 / 2099 500 / 500
Balance -545 / -545 -970 / -970 -500 / -500
Physical Exam
Physical Exam
Cardiology: Normal Sinus Rhythm
Pulmonary: Clear
GI: Soft, Non Distended, Tender (Mild upper abdomen tenderness), Normal Bowel Sounds and Other (Ileostomy in left upper quadrant with liquid stool, PEG tube in place)
[2025-03-13 15:41] VITALS: BP 150/84
[2025-03-13] MEDS: PROTONIX IV 40 MG IV (19:48)
[2025-03-13] MEDS: NSS (PRESERVATIVE FREE) 10 ML IV (19:48)
[2025-03-13 23:04] VITALS: BP 142/73
[2025-03-13] MEDS: LIPITOR 40 MG PO (23:04)
[2025-03-13] MEDS: MELATONIN 5 MG PO (23:04)
[2025-03-13] MEDS: PEPCID 20 MG PO (23:04)
[2025-03-14] MEDS: SODIUM BICARBONATE 650 MG TUBE ×3 (00:18→15:02)
[2025-03-14] MEDS: SYNTHROID 112 MCG TUBE (05:25)
[2025-03-14] MEDS: DILAUDID 0.5 MG IV ×2 (06:38→10:55)
[2025-03-14] MEDS: FLUSH (NSS) 2 FLUSH IV ×2 (06:39→15:02)
[2025-03-14 07:14] LABS: % Basophils 0.4 % (0-2); % Eosinophils 4.6 % (0-6); % Immature Granulocytes 0.7 % (0-0.5); % Lymphocytes 11.6 % (20.5-51.1); % Monocytes 7.2 % (1.7-9.3); % Neutrophils 75.5 % (42.2-75.2); Absolute Eosinophils 0.3 10^3/uL (0-0.7); Absolute Immature Granulocytes 0.1 10^3/uL (0-0.05); Absolute Lymphocytes 0.8 10^3/uL (1.2-3.4); Absolute Monocytes 0.5 10^3/uL (0.1-0.6); Absolute Neutrophils 5.3 10^3/uL (1.4-6.5); Hematocrit 26.3 % (37.0-47.0); Hemoglobin 8.8 g/dL (12.0-16.0); Mean Corp Hgb Conc. 33.5 g/dL (33.0-37.0); Mean Corpuscular Hgb 31.4 pg (27.0-31.0); Mean Corpuscular Volume 93.9 fL (81.0-99.0); Nucleated Red Blood Cells % 0 %; Platelet Count 115 10^3/uL (130-400); Red Cell Dist. Width 15.7 % (11.5-14.5)
[2025-03-14 07:43] LABS: Blood Urea Nitrogen 22 mg/dl (7-17); Calcium 9.8 mg/dl (8.4-10.2); Carbon Dioxide 22 mmol/L (22-30); Chloride 108 mmol/L (98-107); Estimated Creatinine Clearance 45 ml/min; Glucose 139 mg/dl (70-99); Potassium 3.7 mmol/L (3.5-5.1); Sodium 140 mmol/L (135-145); eGFR 36.92
[2025-03-14 07:50] VITALS: BP 160/93
[2025-03-14] MEDS: NEURONTIN 200 MG TUBE ×2 (07:52→15:05)
[2025-03-14] MEDS: BUSPAR 10 MG TUBE (07:52)
[2025-03-14] MEDS: VITAMIN D3 (cholecalciferol) 25 MCG PO (07:52)
[2025-03-14] MEDS: ATIVAN 0.25 MG TUBE (07:52)
[2025-03-14] MEDS: NSS (PRESERVATIVE FREE) 10 ML IV (07:53)
[2025-03-14] MEDS: SEROQUEL 12.5 MG TUBE (07:53)
[2025-03-14] MEDS: PROTONIX IV 40 MG IV (07:53)
[2025-03-14] MEDS: CLARITIN 10 MG TUBE (07:59)
[2025-03-14] MEDS: EFFEXOR 100 MG TUBE (08:00)
[2025-03-14] MEDS: ZINC OXIDE OINTMENT 1 APPLIC TOPICAL ×2 (08:01→15:02)
--- NOTE | 2025-03-14 11:00 | W.PN.GS2 ---
Today's Communication / Plan
-
Lidocaine patches
Tube feeds to goal
Outpatient chronic pain management referral
Assessment / Plan
-
Assessment: 59-year-old female with a h/o CAD, PAD with multiple digit amputations, status post fem-fem and femoropopliteal bypasses, CVA (on Plavix) with right hemiparesis, parotid mass tx surgically with PEG placed, Cervical ca tx with DANIEL,
chemo, XRT, Radiation colitis with bowel perforation s/p completion colectomy with end ileostomy complicated by parastomal hernia s/p re-siting of end ileostomy to left abdomen, and open ventral incisional hernia repair with unilateral [id number] by Dr
Lucille.
Multiple admissions for pSBO and probable chronic small bowel dysmotility in setting of complex abdominal and surgical history. This remains a challenging case given her multiple abdominal surgeries, mesh and history of radiation she has high risk
and essentially prohibitive risk for potential complications with any surgical exploration/lysis. Furthermore, repeat small bowel follow-through studies have shown no persistent obstruction and a 60 minute transit time to the ileostomy.
Nevertheless she keeps coming back to the hospital with similar complaints.
Will try lidocaine patches today. Needs referral for chronic pain management.
Continue tube feeds going as tolerated, thankfully her pain is no worse with tube feeds at goal.
Surgery will sign off for now, please call with any questions or concerns
Time Spent
Total Time Spent with Patient (in minutes): 20
Subjective Data
-
Date of Service: March 14, 2025
Interval Events:
No acute events overnight. Slept well. Pain Controlled, but still present. Denies Nausea/Vomiting, +bowel function. Tolerating diet.
Objective Data
-
Intake and Output
03/13/25 03/14/25 03/15/25
06:59 06:59 06:59
Intake Total 1130 / 1130 810 / 810
Output Total 2099 / 2100 1650 / 1650
Balance -970 / -970 -840 / -840
Intake:
Oral fluids 120 / 120 240 / 240
IV fluids (Total) 800 / 800
IV piggybacks 80 / 80
Tube feeding 10 / 10 480 / 480
Feeding tube flush amount 120 / 120 90 / 90
Output:
Liquid stool amount 650 / 650 1150 / 1150
Colostomy 650 / 650 1150 / 1150
Urine, Voided 1450 / 1450 500 / 500
Other:
How many times incontinent 1
MODERATE amount urine
Vital Signs
Temp Pulse Resp BP Pulse Ox
97.7 F 94 16 160/93 95
03/14/25 07:50 03/14/25 07:50 03/14/25 07:50 03/14/25 07:50 03/14/25 07:50
Lab Results
03/14/25 06:56
03/14/25 06:56
Calcium 9.8 mg/dl (8.4-10.2) 03/14/25 06:56
Phosphorus 2.9 mg/dl (2.5-4.5) 03/13/25 07:05
Magnesium 1.6 mg/dl (1.6-2.3) 03/13/25 07:05
Total Bilirubin 0.6 mg/dl (0.2-1.3) 03/12/25 08:27
AST 10 U/L (14-36) L 03/12/25 08:27
ALT < 10 U/L (0-35) 03/12/25 08:27
Alkaline Phosphatase 81 U/L (38-126) 03/12/25 08:27
Total Protein 6.8 g/dl (6.3-8.2) 03/12/25 08:27
Albumin 3.3 g/dl (3.5-5.0) L 03/12/25 08:27
Physical Exam
-
GENERAL/NEURO: Awake, Alert, no distress
CHEST: Unlabored breathing on RA
ABDOMEN: Soft, Non-Tender, Non-Distended, ostomy pink patent and productive
Patient has a carrasco catheter: No
Patient has a central line: No
--- NOTE | 2025-03-14 11:43 | W.PN.HOSP.TC ---
Today's Communication/Plan
-
DC
Assessment / Plan
Assessment / Plan
59yo F with PMHX of chronic abdominal pain 2/2 adhesions and multiple episodes of ileus and SBO, CVA with PAD s/pright to left femoral to femoral artery bypass with sartorius flaps, L hemiparesis, PEG tube, right femur fracture s/p repair on
03/09/25, HTN, CKD stage 3, RA, COPD, RACHEL on CPAP, hypothyroidism, Hx of cervical CA s/p hysterectomy and RT, radiation colitis s/p colectomy and ileostomy, CAD, DM, parotid mass, RACHEL, depression, neuropathy, recurrent SBO came form facility with
acute on chronic abdominal pain and recurrent partial SBO on CT. Patient had 9 CT abd/pelvis over past 12months and with similar findings of early partial SBO that later was resolving without surgical intervention. Abdominal pain Hx is extensive,
dating back to at least 2018.
As per previous GenSx evaluation: with post RT and postOP changes and possible slow transit causing pain - risks of new surgical intervention most likely overweight benefits witgh an absence of clear transition point
Current CT with fluid-filled mildly dilated small bowel with concern for enteritis, ileus or early pSBO
A/P:
#Acute on chronic abdominal pain 2/2 postOP and postRT adhesions and slow transit with recurrent partial SBO
#Possible enteritis with mild leukocytosis
Ostomy bag with liquid brown fluid - send for c.diff, cultures, leukocytes
NPO and PEG to gravity
GenSx consult pending
Pain mgmt
EGD on 01/26/25 with no significant findings, recommended to cont PPI, discussion with pain mgmt for intensification of pain regimen
Agreed to PEG tube feeds as a primary source of caloriesto see if that will relieve the pain as more liquid intake rather then what patient usually eating, oral intake to cont for pleasure. Helmet Binder consult for feeds. Recommended to have PEG to
gravity in STR if worsening abdominal pain
As per genSx - patient had very quick passage of the contrast to ostomy - 6h. No concern for gastroparesis - will intensify pain mgmt
#RHETT on CKD stage 3
#Nephrolithiasis
with Hx of ureteral stent in 2022
No obstruction on CT, however mild renal pelvis dilation on R on US RUQ - dedicated US renal pending to exclude ureteral stone
Will benefit from outpatient urology
2/2 dehydration
IVF and encourage PO intake
follow Cr - improving, baseline 1.5-1.7
#Chronic dysphagia s/p PEG now with oral intake
IDDS6 diet when able
#DM type 2 with circulatory complications
HgbA1c 5.2% in December 2024
cont diet control
#Chronic anemia with acute Hgb drop (most likely false value)
ppi BID as per GI,. however EGD on 01/26 - with no significant findings
Stop hep ppx, start compression Ppx
serial H&H
Plavix already on hold
No iron deficiency, normal B12 and folate as of January 2025
#essential HTN
#RA
#COPD not in exacerbation
#Hypothyroidism
#Hx of CVA
#HLD
#Neuropathy
#Anxiety d/o
#Hx of parotid mass s/p s/p Partial Glossectomy
cont home meds
#Chronic anemia and thrombocytopenia
no over cyrrhosis on US, fatty liver disease
Hx of BM biopsy with neg results oin 2012
2/2 CKD, poor generalized status, poor nutrition 2/2 chronic abd pain
outpatient hem is reasonable
#PAD s/p L femoral graft
Recent US showed LE vascular duplex showed bilateral moderate arterial insufficiency - recommended cont Plavix and outpatient follow up with vascular
DVT ppx SCDs
DNR/DNI
I have spent at least 56min reviewing chart, test results, communication with consultants and providing direct patient care
Anticipated Discharge: Today
Subjective/Interval History
-
Date of Service: March 14, 2025
Objective Data
-
Labs:
Laboratory Results
03/14/25
06:56
WBC 7.0
Hgb 8.8 L
Hct 26.3 L
Plt Count 115 L
Sodium 140
Potassium 3.7
Chloride 108 H
Carbon Dioxide 22
BUN 22 H
Creatinine 1.6 H
Glucose 139 H
Calcium 9.8
Vital Signs:
Vital Signs
Temp Pulse Resp BP Pulse Ox
97.7 F 94 16 160/93 95
03/14/25 07:50 03/14/25 07:50 03/14/25 07:50 03/14/25 07:50 03/14/25 07:50
I&O
03/13/25 03/14/25 03/15/25
06:59 06:59 06:59
Intake Total 1130 / 1130 810 / 810
Output Total 2100 / 2100 1650 / 1650
Balance -970 / -970 -840 / -840
Review of Systems
-
History Source: Patient
All other systems: Reviewed and negative
Abdomen/GI: Reports Abdominal Pain
Physical Exam
-
General: No Apparent Distress
HEENT: Normocephalic
Respiratory: Clear to Auscultation
Cardiac: Regular Rhythm
GI: Soft, Nondistended and Tender
Musculoskeletal: No Clubbing, No Cyanosis and No Edema
Skin: Warm
Neuro: Awake, Alert, Oriented and AO x 3
Psych: Calm
--- NOTE | 2025-03-14 11:46 | W.DCSUMMARY ---
Addendum entered and electronically signed by Michele Haley MD 03/14/25 12:22:
#Stage 1 bilateral heels pressure injuries, POA
Wound care
pressure unload
Original Note:
Discharge Summary
Discharge Data
Date of Admission: 03/12/25
Date of Discharge: 03/14/25
-
Pending Results: No
Hospital Course
59yo F with PMHX of chronic abdominal pain 2/2 adhesions and multiple episodes of ileus and SBO, CVA with PAD s/pright to left femoral to femoral artery bypass with sartorius flaps, L hemiparesis, PEG tube, right femur fracture s/p repair on
03/09/25, HTN, CKD stage 3, RA, COPD, RACHEL on CPAP, hypothyroidism, Hx of cervical CA s/p hysterectomy and RT, radiation colitis s/p colectomy and ileostomy, CAD, DM, parotid mass, RACHEL, depression, neuropathy, recurrent SBO came form facility with
acute on chronic abdominal pain and recurrent partial SBO on CT. Patient had 9 CT abd/pelvis over past 12months and with similar findings of early partial SBO that later was resolving without surgical intervention. Abdominal pain Hx is extensive,
dating back to at least 2019.
As per previous GenSx evaluation: with post RT and postOP changes and possible slow transit causing pain - risks of new surgical intervention most likely overweight benefits witgh an absence of clear transition point
Current CT with fluid-filled mildly dilated small bowel with concern for enteritis, ileus or early pSBO. Stool WBC, Cx and C.diff neg.
Agreed to PEG tube feeds as a primary source of calories see if that will relieve the pain as more liquid intake rather then what patient usually eating, oral intake to cont for pleasure. Supervising Appraiser consult for feeds. Recommended to have PEG to
gravity in STR if worsening abdominal pain
As per genSx - patient had very quick passage of the contrast to ostomy - 6h. No concern for gastroparesis - will intensify pain mgmt
Hgb stable, BID PPI recommended by GI.
Medically stable for d/c to rehab
I have spent at least 56min reviewing chart, test results, communication with consultants and providing direct patient care
Patient was managed for:
#Acute on chronic abdominal pain 2/2 postOP and postRT adhesions and slow transit with recurrent partial SBO
#Possible enteritis with mild leukocytosis
#RHETT on CKD stage 3
#Nephrolithiasis
#Chronic dysphagia s/p PEG now with oral intake
#DM type 2 with circulatory complications
#Chronic anemia with acute Hgb drop
#essential HTN
#RA
#COPD not in exacerbation
#Hypothyroidism
#Hx of CVA
#HLD
#Neuropathy
#Anxiety d/o
#Hx of parotid mass s/p s/p Partial Glossectomy
#Chronic anemia and thrombocytopenia
#PAD s/p L femoral graft
Discharge Plan
-
Patient Disposition: Long Term/SNF
Discharge Diagnosis/Procedures: abdominal pain
Diet: Other diet
Additional Diets: tube feeding Osmolite 1.2 70ml/h 25ml/jh free water flush, allowed clear liquid diet via oral intake
Activity Restrictions/Additional Instructions:
If worsening abdominal pain - connect PEG to gravity for drainage for 6-12 hours
Referrals:
Michael Vargas MD [Family Provider]
Prescriptions:
New
lorazepam 0.5 mg Tablet
0.25 mg feeding tube BID Qty: 6 0RF
hydromorphone 2 mg Tablet
2 mg feeding tube Q4HPRN PRN (Reason: severe pain) Qty: 6 0RF
gabapentin 250 mg/5 mL Solution
200 mg feeding tube TID Qty: 90 0RF
pantoprazole [address] for susp in packet
40 mg feeding tube BID Qty: 60 0RF
amlodipine 5 mg tablet
5 mg feeding tube DAILY Qty: 30 0RF
Continued
acetaminophen 325 mg Tablet
650 mg PO Q4HPRN PRN (Reason: mild pain/temp>100F)
Fleet Enema 19-7 gram/118 mL Enema
[address] DAILYPRN PRN (Reason: if dulcolax is ineffective after 24hrs)
melatonin 5 mg Tablet
5 mg PO HS
bisacodyl [Dulcolax (bisacodyl)] 10 mg Suppository
[address] DAILYPRN PRN (Reason: if no bm aftr mom)
magnesium hydroxide [Milk of Magnesia] 400 mg/5 mL Suspension
30 ml PO [id number] PRN (Reason: no bm x3 days)
mupirocin 2 % Ointment
1 applic TOPICAL DAILY
Rx Instructions:
for 7 days until 03/13/25
menthol-zinc oxide [Moisture Barrier Ointment] 0.44-20.6 % Ointment
1 applic TOPICAL TID
Changed
clopidogrel [Plavix] 75 mg Tablet
75 mg feeding tube DAILY Qty: 0 0RF
atorvastatin 40 mg tablet
40 mg feeding tube HS Qty: 0 0RF
cholecalciferol (vitamin D3) [Vitamin D3] 25 mcg (1,000 unit) Tablet
25 mcg feeding tube DAILY Qty: 0 0RF
loratadine 10 mg Tablet
10 mg feeding tube DAILY Qty: 0 0RF
sodium bicarbonate 650 mg Tablet
650 mg feeding tube Q8H Qty: 0 0RF
buspirone 10 mg Tablet
10 mg feeding tube BID Qty: 0 0RF
levothyroxine 112 mcg tablet
112 mcg feeding tube DAILY Qty: 0 0RF
venlafaxine 100 mg Tablet
100 mg feeding tube BID Qty: 0 0RF
oxycodone 5 mg Tablet
5 mg feeding tube Q4HPRN PRN (Reason: mod pain) Qty: 10 0RF
quetiapine [Seroquel] 25 mg Tablet
12.5 mg feeding tube BID Qty: 0 0RF
Discontinued
diclofenac sodium 1 % Gel
0 g TOPICAL TID
famotidine 20 mg tablet
20 mg PO HS
pantoprazole 40 mg tablet,delayed release (DR/EC)
40 mg PO DAILY
lorazepam [Ativan] 0.5 mg Tablet
0.25 mg PO BID Qty: 4 0RF
doxycycline hyclate 100 mg Capsule
100 mg PO BID
Rx Instructions:
take until 03/12/25
gabapentin 300 mg capsule
300 mg PO TID
Discharge Orders:
Discharge Patient (As Directed); Ordered 03/14/25
Ordered By: Michele Haley
Discharge Date and Time
Print Language: MONEGASQUE
--- NOTE | 2025-03-14 15:07 | CM ---
Pt cleared for discharge back to [facility] today. Ambulance transport PMNC completed and provided to Airport Clerk.
Plan: Return to [facility] today via ambulance. Pt reviewed IMM, unable to sign and provided verbal consent.
[facility] nursing report: [phone]
Discharge instructions fax: [phone]
[2025-03-14 15:31] VITALS: BP 146/92
--- NOTE | 2025-03-14 17:51 | PTCARENOTE ---
Acute Care here to pick pt up. Original time was 1630. All belongings in room sent with patient.
== END 2025-03-14 17:50 | DRG 389 ==
LOC: 2 NORTH 07:15
PROVIDERS: Emergency Medicine; Nurse Practitioner Family; ADMITTING PHYSICIAN Internal Medicine; ATTENDING PHYSICIAN Internal Medicine; CONSULT PHYSICIAN Internal Medicine Gastroenterology; CONSULT PHYSICIAN Surgery; EMERGENCY PHYSICIAN Emergency Medicine; FAMILY PHYSICIAN Internal Medicine
DX: K56.600 Partial intestinal obstruction, unspecified as to cause (principal); F11.20 Opioid dependence, uncomplicated; I69.351 Hemiplegia and hemiparesis following cerebral infarction affecting right dominant side; N13.2 Hydronephrosis with renal and ureteral calculous obstruction; N17.9 Acute kidney failure, unspecified; N18.32 Chronic kidney disease, stage 3b; D64.9 Anemia, unspecified; I12.9 Hypertensive chronic kidney disease with stage 1 through stage 4 chronic kidney disease, or unspecified chronic kidney disease; J44.9 Chronic obstructive pulmonary disease, unspecified; M06.9 Rheumatoid arthritis, unspecified; E03.9 Hypothyroidism, unspecified; F41.9 Anxiety disorder, unspecified; T45.1X5A Adverse effect of antineoplastic and immunosuppressive drugs, initial encounter; G62.0 Drug-induced polyneuropathy; Z93.1 Gastrostomy status; I25.10 Atherosclerotic heart disease of native coronary artery without angina pectoris; Z90.49 Acquired absence of other specified parts of digestive tract; Z85.41 Personal history of malignant neoplasm of cervix uteri; G89.4 Chronic pain syndrome; G47.33 Obstructive sleep apnea (adult) (pediatric); R13.10 Dysphagia, unspecified; D69.6 Thrombocytopenia, unspecified; Z93.3 Colostomy status; Z88.0 Allergy status to penicillin; Z88.2 Allergy status to sulfonamides; E11.22 Type 2 diabetes mellitus with diabetic chronic kidney disease; E11.42 Type 2 diabetes mellitus with diabetic polyneuropathy; E66.9 Obesity, unspecified; Z68.31 Body mass index [BMI] 31.0-31.9, adult; E78.00 Pure hypercholesterolemia, unspecified; F17.210 Nicotine dependence, cigarettes, uncomplicated; F32.A Depression, unspecified; F43.10 Post-traumatic stress disorder, unspecified; K21.00 Gastro-esophageal reflux disease with esophagitis, without bleeding; L89.619 Pressure ulcer of right heel, unspecified stage; L89.629 Pressure ulcer of left heel, unspecified stage; Z66 Do not resuscitate; Z79.02 Long term (current) use of antithrombotics/antiplatelets; Z79.890 Hormone replacement therapy; Z79.899 Other long term (current) drug therapy; Z87.01 Personal history of pneumonia (recurrent); Z90.710 Acquired absence of both cervix and uterus; Z91.040 Latex allergy status; Z92.3 Personal history of irradiation; Z93.2 Ileostomy status; Z95.5 Presence of coronary angioplasty implant and graft
CPT/HCPCS: 74022; 74176; 76705; 76770; 80048; 80053; 81003; 81015; 82962; 83690; 83735; 84100; 85014; 85018; 85025; 85027; 87045; 87046; 87070; 87077; 87086; 87324; 87427; 87449; 89055; 92610; 93005; 96374; 96375; 96376; 99284; 99285

== ENCOUNTER 2025-04-10 11:55 | Emergency (ER) | payer MEDICARE, OTHER, SELFPAY ==
[2025-04-10 11:57] VITALS: BP 142/91
[2025-04-10 12:00] VITALS: BP 142/91
--- NOTE | 2025-04-10 13:48 | ED.MUSCINJ ---
HPI-Injury
General
Chief Complaint: Fall
Source: patient and records
Exam Limitations: none
Time Seen by Provider: 04/10/25 13:35
Nursing documentation reviewed up to this point in time: agreed with
History of Present Illness-Injury
Is this injury a work related problem?: No
Is pt an associate of [facility]?: No
Initial Injury comments:
59-year-old female prior stroke prior femur fracture was at a rehab facility hold for a week actually dropped her from his [employer] lift onto the ground she has right hip pain worse with movement better with rest occurred just prior to arrival
no head strike she is thirsty
Past History
Past History
ED Past Medical History: CAD, Cancer (Cervical cancer), CVA (X 2), Fibromyalgia, HTN, NIDDM, PA, Hypothyroidism, Psychiatric (Depression, PTSD) and Other (Rheumatoid arthritis, neuropathy, Colitis from radiation, Cellulitis, Sleep apnea uses CPAP,
Renal calculus, Parotid mass, LVH, GI bleeding, Anemia, PTSD); Negative Asthma or Hypercholesterolemia
ED Past Surgical History: Appendectomy, Bowel resection, Cardiac (Cardiac stent), Gynecological (Cervical Cancer with radiaion and Chemo, Hysterectomy), Orthopedic (Left ankle, left knee surgery X 2, Left wrist surgery, Right knee surgery, ),
Tonsilectomy (adnoids) and Other (Colostomy changed to Ileostomy, Ear tubes, Right parotidectomy, Left great toe and second Toe amputation)
Social History
Tobacco: Smoker (1ppd)
Alcohol: None
Drug: None
Personal:
Living: care home
Employment: Not employed
Family History
Family History: Early CAD (in patient's father)
Review of Systems
Review of Systems
All Other Systems: Not applicable
Respiratory: Reports no symptoms
Cardiac: Reports no symptoms
ABD/GI: Reports no symptoms
Musculoskeletal: Reports joint pain
Phy Exam
Physical Exam
Physical Exam:
Physical Exam
General: Chronically ill female nontoxic
Neck: No tongue bite no posterior
Heart: s1/s2 regular rate and rhythm, no murmur. equal radial pulses.
Lungs: no acute respiratory distress. clear bilaterally
Abdomen: Nontender
Neuro: alert and oriented.
Skin: no rash
Psychiatric: well kept. interactive and cooperative
Extremities: Pain in the right mid femur with range of motion of her hip
Injury Course
Orders/Labs/Results
Orders:
Orders
04/10/25 12:03
CR Femur - Right Min 2 Vw Urgent
Reason For Exam: fall pain
04/10/25 13:40
Oxycodone/Acetaminophen [Percocet 5/325] 1 tablet PO NOW STA
04/10/25 14:24
Case Management Consult ONCE
Case Management Consult: Discharge Planning
MDM/Problems Addressed
Differential Diagnosis Includes:
Contusion fracture strain
MDM/Problems Addressed:
Hip pain
Chronic conditions affecting care:
Multi including fracture femur stroke
Acute Exacerbation and/or Progression of Chronic Illness: Neurological disorder
*Radiology
Radiology exam reviewed: radiology read reviewed
*Pulse Oximetry
SaO2: 100
Oxygen Mode of Delivery: Room air
Patient hypoxic: no
*Critical Care Note
Total Time (30-74mins, 75-104mins- exclusive of procedures): Not Applicable
Update Note
Update Note:
Update patient with right hip and proximal femur pain x-rays noted reviewed with radiology they do not believe there is hip fracture we will get her some pain meds with an eye towards sending her back home
2:30 PM told by nursing that patient wants to go back to her care home and not go home
Message left for case management to see if this is a possible request
ED Attending Note
-
Portions of this chart may have been created with voice recognition software.� Occasional wrong word or��sound alike� substitutions may have occurred due to the inherent limitations of voice recognition software.
Discharge Plan
Departure
Patient Disposition: Home (Routine Discharge)
Date of Disposition: 04/10/25
Time of Disposition: 13:50
Patient with high blood pressure during this ER visit?: No
Condition: Good
Discharge Problem:
Acute hip pain
Instructions: Preventing falls in adults
Prescriptions:
New
oxycodone-acetaminophen [Percocet] 5-325 mg tablet
1 tab PO Q6HPRN PRN (Reason: pain) Qty: 10 0RF
No Action
acetaminophen 325 mg Tablet
650 mg PO Q4HPRN PRN (Reason: mild pain/temp>100F)
Fleet Enema 19-7 gram/118 mL Enema
118 ml [place] DAILYPRN PRN (Reason: if dulcolax is ineffective after 24hrs)
melatonin 5 mg Tablet
5 mg PO HS
bisacodyl [Dulcolax (bisacodyl)] 10 mg Suppository
10 mg [place] DAILYPRN PRN (Reason: if no bm aftr mom)
magnesium hydroxide [Milk of Magnesia] 400 mg/5 mL Suspension
30 ml PO [id number] PRN (Reason: no bm x3 days)
mupirocin 2 % Ointment
1 applic TOPICAL DAILY
Rx Instructions:
for 7 days until 03/13/25
menthol-zinc oxide [Moisture Barrier Ointment] 0.44-20.6 % Ointment
1 applic TOPICAL TID
lorazepam 0.5 mg Tablet
0.25 mg feeding tube BID Qty: 6 0RF
gabapentin 250 mg/5 mL Solution
200 mg feeding tube TID Qty: 90 0RF
hydromorphone 2 mg Tablet
2 mg feeding tube Q4HPRN PRN (Reason: severe pain) Qty: 6 0RF
quetiapine [Seroquel] 25 mg Tablet
12.5 mg feeding tube BID Qty: 0 0RF
atorvastatin 40 mg tablet
40 mg feeding tube HS Qty: 0 0RF
clopidogrel [Plavix] 75 mg Tablet
75 mg feeding tube DAILY Qty: 0 0RF
venlafaxine 100 mg Tablet
100 mg feeding tube BID Qty: 0 0RF
sodium bicarbonate 650 mg Tablet
650 mg feeding tube Q8H Qty: 0 0RF
buspirone 10 mg Tablet
10 mg feeding tube BID Qty: 0 0RF
loratadine 10 mg Tablet
10 mg feeding tube DAILY Qty: 0 0RF
levothyroxine 112 mcg tablet
112 mcg feeding tube DAILY Qty: 0 0RF
oxycodone 5 mg Tablet
5 mg feeding tube Q4HPRN PRN (Reason: mod pain) Qty: 10 0RF
cholecalciferol (vitamin D3) [Vitamin D3] 25 mcg (1,000 unit) Tablet
25 mcg feeding tube DAILY Qty: 0 0RF
pantoprazole [address] for susp in packet
40 mg feeding tube BID Qty: 60 0RF
amlodipine 5 mg tablet
5 mg feeding tube DAILY Qty: 30 0RF
Referrals:
Michael Vargas MD [Family Provider]
Interventions
Interventions:
*Risk Screen - Suicide Last Done: 04/10/25 11:57
*General Assessment Last Done: 04/10/25 11:57
*Neglect/Abuse Screening Last Done: 04/10/25 11:57
Discharge Date and Time
Print Language: LAO
[2025-04-10 14:00] VITALS: BP 123/89
[2025-04-10] MEDS: PERCOCET 5/325 1 TABLET PO ×2 (14:21→18:10)
--- NOTE | 2025-04-10 16:53 | CM ---
Addendum entered by Skylar Langley RN 04/10/25 17:06:
Patient has been accepted by [facility]
Report
[id number]

Original Note:
CM revieewed medical records. Patient stated that she would like to return to [facility]. Patient had been a LTC resident there and was discharge on Sunday to home and the care of her family. CM confirmed via Zoey that patient cannot return to
[facility] from the emergency room due to a flu outbreak at the facility. Social work at [facility] offered to have patient go to [facility] for a 'few days' with plans to transition patient back to [facility].
Patient is refusing to go to [facility] as she had heard that the facility has bedbugs. CM spoke with who stated that he cannot care for patient and has returned the [employer] lift and hospital bed to the DME company.
Patient stated that she wants to return home and she will sleep on the couch. CM and bedside RN stated that this is an unsafe option for patient has her needs require DME and further assistance.
CM discussed further with patient that she cannot stay in the hospital or ER. Patient may have to pay [facility] rate if she stays in the hospital as she has no medical reason to stay in the hospital.
Patient stated that she does not believe that [facility] will transition her back to [facility], but is will to be transferred there as she understand she had no safe option.
CM updated Zoey at [facility] and she will confirm transportation arrangements.
CM will await call back from Zoey.
[2025-04-10 17:08] VITALS: BMI 30.7
[2025-04-10 18:30] VITALS: BP 138/75
== END 2025-04-10 21:15 | disposition home or self-care (01) ==
LOC: EMR 11:55
PROVIDERS: EMERGENCY PHYSICIAN Emergency Medicine; FAMILY PHYSICIAN Internal Medicine
DX: M25.551 Pain in right hip (principal); I25.10 Atherosclerotic heart disease of native coronary artery without angina pectoris; M79.7 Fibromyalgia; I10 Essential (primary) hypertension; E11.9 Type 2 diabetes mellitus without complications; E03.9 Hypothyroidism, unspecified; I25.2 Old myocardial infarction; F17.200 Nicotine dependence, unspecified, uncomplicated; F32.A Depression, unspecified; F43.10 Post-traumatic stress disorder, unspecified; G47.30 Sleep apnea, unspecified; M06.9 Rheumatoid arthritis, unspecified; Z82.49 Family history of ischemic heart disease and other diseases of the circulatory system; Z86.73 Personal history of transient ischemic attack (TIA), and cerebral infarction without residual deficits; Z87.442 Personal history of urinary calculi; Z90.49 Acquired absence of other specified parts of digestive tract; Z90.710 Acquired absence of both cervix and uterus; Z93.3 Colostomy status; Z95.5 Presence of coronary angioplasty implant and graft
CPT/HCPCS: 99283; 73552

== ENCOUNTER 2025-05-04 03:06 | Emergency (ER) | payer MEDICARE, OTHER, SELFPAY ==
[2025-05-04 03:17] VITALS: BP 130/86
[2025-05-04 05:22] VITALS: BP 141/82
--- NOTE | 2025-05-04 05:34 | ED.GENMED ---
History of Present Illness
General
Chief Complaint: Skin Problem
Source: patient, ambulance crew and previous hospital records
Exam Limitations: none
Time Seen by Provider: 05/04/25 04:34
Nursing documentation reviewed up to this point in time: agreed with
History of Present Illness
History of Present Illness:
This is a 59-year-old woman with extensive past medical history including chronic abdominal pain secondary to adhesions and multiple episodes of ileus versus small bowel obstruction, CVA, PAD, cervical cancer status post hysterectomy and XRT,
radiation colitis status post colectomy end ileostomy. Multiple hospitalizations for recurrent abdominal pain, recurrent episodes of ileus versus small bowel obstruction and after most recent hospitalization March 12 to March 14 of this year she was
recommended to discontinue oral solids and agreed to PEG tube feedings as primary source of calories and limit oral intake to clear liquids only. Since this dietary restriction patient has had no further abdominal pain episodes.
She presents to the ED tonight with complaints of leaking from her ileostomy appliance site with irritated skin lateral abdominal wall. She has not had a fever nor chills.
She does admit to intermittent shortness of breath when her tube feedings are instilling but no cough, no nausea nor vomiting, she has not had a fever.
She is hoping to advance her diet to solids as she wants to resume normal oral/solid intake.
Past History
Past History
ED Past Medical History: CAD, Cancer (Cervical cancer), CVA (X 2), Fibromyalgia, HTN, NIDDM, VT, Hypothyroidism, Psychiatric (Depression, PTSD) and Other (Rheumatoid arthritis, neuropathy, Colitis from radiation, Cellulitis, Sleep apnea uses CPAP,
Renal calculus, Parotid mass, LVH, GI bleeding, Anemia, PTSD); Negative Asthma or Hypercholesterolemia
ED Past Surgical History: Appendectomy, Bowel resection, Cardiac (Cardiac stent), Gynecological (Cervical Cancer with radiaion and Chemo, Hysterectomy), Orthopedic (Left ankle, left knee surgery X 2, Left wrist surgery, Right knee surgery, ),
Tonsilectomy (adnoids) and Other (Colostomy changed to Ileostomy, Ear tubes, Right parotidectomy, Left great toe and second Toe amputation)
Social History
Tobacco: Smoker (1ppd)
Alcohol: None
Drug: None
Personal:
Living: [facility]
Employment: Not employed
Family History
Family History: Early CAD (in patient's father)
Phy Exam
Physical Exam
Physical Exam:
GENERAL: 59-year-old woman appears older than stated age, chronically debilitated, bedbound. She is awake and alert, easily communicative. Appears in no acute distress. No respiratory distress.
EYE: anicteric
NECK: Supple, nontender, no meningismus, no significant adenopathy.
ENT: oral mucosa is moist. No rhinorrhea.
CARDIAC: Regular rate and rhythm. no murmur.
LUNGS: Clear breath sounds bilaterally, no acute respiratory distress, no wheezes/rales/rhonchi
ABDOMEN: Soft, nondistended, without focal tenderness, ileostomy left mid abdomen with ostomy apparatus soaked along the lateral aspect and leaking of ileostomy fluid lateral aspect of the apparatus. There is very mild skin excoriation left lateral
aspect of the ileostomy site. Mild local tenderness to palpation. No soft tissue swelling, no surrounding erythema. No palpable heat. No r/g, no cvat. normoactive BS.
NEUROLOGICAL: Alert and oriented x3
SKIN: Warm and dry, normal color, skin excoriation left lateral abdomen as above.
MUSCULOSKELETAL: No C/C/E. peripheral pulses are full and equal b/l. No palpable tenderness.
PSYCH: Normal and appropriate interaction.
Course
Vital Signs
Initial and Last Documented VS:
Initial Vital Signs
Temp Pulse Resp BP Pulse Ox
98.2 F 69 18 130/86 97
05/04/25 03:17 05/04/25 03:17 05/04/25 03:17 05/04/25 03:17 05/04/25 03:17
Last Documented Vital Signs
Temp Pulse Resp BP Pulse Ox
98.2 F 58 14 141/82 98
05/04/25 03:17 05/04/25 05:22 05/04/25 05:22 05/04/25 05:22 05/04/25 05:39
MDM/Problems Addressed
Differential Diagnosis Includes:
Patient presents with leaking ileostomy apparatus with mild skin excoriation lateral aspect of the stoma. The stoma itself is intact without irritation.
Abdomen is soft without appreciable tenderness. Vital signs within normal limits. No fever. There is nothing to suggest abdominal wall cellulitis.
Will plan to change ostomy bag/apparatus and apply a skin barrier to excoriated skin.
Will discharge back to [facility] for continued care.
Chronic conditions affecting care: Neurological disorder, Previous abdomnial surgery and Psychiatric illness
Acute Exacerbation and/or Progression of Chronic Illness: Previous abdomnial surgery
*Pulse Oximetry
SaO2: 98
Oxygen Mode of Delivery: Room air
Patient hypoxic: no
*Critical Care Note
Total Time (30-74mins, 75-104mins- exclusive of procedures): Not Applicable
ED Attending Note
-
Portions of this chart may have been created with voice recognition software.� Occasional wrong word or��sound alike� substitutions may have occurred due to the inherent limitations of voice recognition software.
Discharge Plan
Departure
Patient Disposition: [facility]/SNF
Date of Disposition: 05/04/25
Time of Disposition: 05:34
Patient with high blood pressure during this ER visit?: No
Condition: Good
Discharge Problem:
Ileostomy care
Instructions: Ileostomy diet, How to care for an ostomy
Prescriptions:
No Action
acetaminophen 325 mg Tablet
650 mg PO Q4HPRN PRN (Reason: mild pain/temp>100F)
Rx Instructions:
written for PO; pt has feeding tube
Fleet Enema 19-7 gram/118 mL Enema
118 ml [place] DAILYPRN PRN (Reason: if dulcolax is ineffective after 24hrs)
melatonin 5 mg Tablet
5 mg feeding tube HS
bisacodyl [Dulcolax (bisacodyl)] 10 mg Suppository
10 mg [place] DAILYPRN PRN (Reason: if no bm after mom)
magnesium hydroxide [Milk of Magnesia] 400 mg/5 mL Suspension
30 ml PO [id number] PRN (Reason: no bm x3 days)
lorazepam 0.5 mg Tablet
0.25 mg feeding tube BID Qty: 6 0RF
atorvastatin 40 mg tablet
40 mg feeding tube HS Qty: 0 0RF
clopidogrel [Plavix] 75 mg Tablet
75 mg feeding tube DAILY Qty: 0 0RF
venlafaxine 100 mg Tablet
100 mg feeding tube BID Qty: 0 0RF
sodium bicarbonate 650 mg Tablet
650 mg feeding tube Q8H Qty: 0 0RF
buspirone 10 mg Tablet
10 mg feeding tube BID Qty: 0 0RF
loratadine 10 mg Tablet
10 mg feeding tube DAILY Qty: 0 0RF
levothyroxine 112 mcg tablet
112 mcg feeding tube DAILY Qty: 0 0RF
cholecalciferol (vitamin D3) [Vitamin D3] 25 mcg (1,000 unit) Tablet
25 mcg feeding tube DAILY Qty: 0 0RF
quetiapine [Seroquel] 25 mg Tablet
25 mg feeding tube BID
famotidine 20 mg Tablet
20 mg feeding tube HS
gabapentin 300 mg Capsule
300 mg feeding tube TID
nicotine 7 mg/24 hr Patch 24 Hour
1 patch TRANSDERMAL Q24H
diclofenac sodium 1 % Gel
2 g TOPICAL TID
Rx Instructions:
apply to L shoulder
Multiple Vitamins-Minerals Tab
1 tab PO DAILY
Rx Instructions:
written for PO, pt has feeding tube
oxycodone 5 mg tablet
5 mg feeding tube Q4HPRN PRN (Reason: mod-severe pain)
pantoprazole [address] for susp in packet
40 mg feeding tube DAILY
menthol-zinc oxide [Moisture Barrier Ointment] 0.44-20.6 % Ointment
1 applic TOPICAL TID
Rx Instructions:
apply every shift to b/l buttocks
Referrals:
Michael Vargas MD [Family Provider] - Follow up in 2-3 days
Interventions
Interventions:
*Risk Screen - Suicide Last Done: 05/04/25 03:17
*General Assessment Last Done: 05/04/25 03:17
*Neglect/Abuse Screening Last Done: 05/04/25 03:17
*ED- Fall Risk Assessment Last Done: 05/04/25 04:12
*Nursing Disposition Last Done: 05/04/25 06:28
ED-Skin Assessment Last Done: 05/04/25 04:12
Discharge Date and Time
Discharge Date/Time: 05/04/25 06:28
Print Language: ALGERIAN
--- NOTE | 2025-05-04 06:17 | EDRN ---
This RN attempted to call report to [facility] without success. Answering machines only. Pt started crying, swinging at people stating she wants her diet changed and Dr Orozco was going to do so. Dr Orozco said she discussed this with pt, she is
NOT changing pt's diet, she must discuss this with her GI doctor. Pt reminded of this and continued yelling and screaming that she was not going back until she sees a GI doctor. This RN and Acute Care crew attempted to calm pt without success - pt
continued trying to strike with L hand. Dr Orozco informed and came back to speak with pt - she told pt she will not change her diet, that is up to her GI doctor. Pt reportedly wants to eat and has been getting tube feedings, clear liquids which has
helped her chronic abdominal pain. After Dr Orozco left, pt said she would not go back, continued with crying and screaming and the crew said they would not take her. Dr Orozco came back again, reviewed her physical exam findings with pt and told her
she is going back, that she will not see a GI doctor here and must continue with her GI doctor at the facility. She will NOT change her diet. If this crew does not take her back, another crew will but she will return to [facility].
Pt was informed by Dr Orozco and this RN prior to discharge arrangements being made that she was discharged and would be returning to [facility]. Pt was cooperative, had no questions and agreeable to plan then. Behavior changed when crew
arrived.
--- NOTE | 2025-05-04 06:36 | EDRN ---
Spoke with Ericka at [facility]. She says pt called 911 to come to ED herself, that there was no medical emergency to send pt. Pt told staff in ED her ileostomy was leaking and it was changed twice but staff refused to change it anymore and
'just put a towel over it.' Ericka said this is an ongoing issue, her ileostomy bag was changed six times in 45 minutes to 1 hour because pt plays with it. Pt also reportedly disconnects her tube feedings. Informed Ericka that if pt wants her
diet changed it should be done by her physician there and/or GI doctor.
== END 2025-05-04 06:28 ==
LOC: EMR 03:06
PROVIDERS: EMERGENCY PHYSICIAN Emergency Medicine; FAMILY PHYSICIAN Internal Medicine
DX: Z43.2 Encounter for attention to ileostomy (principal); R10.9 Unspecified abdominal pain; R06.02 Shortness of breath; I73.9 Peripheral vascular disease, unspecified; K66.0 Peritoneal adhesions (postprocedural) (postinfection); I25.10 Atherosclerotic heart disease of native coronary artery without angina pectoris; I10 Essential (primary) hypertension; E03.9 Hypothyroidism, unspecified; F32.A Depression, unspecified; E11.40 Type 2 diabetes mellitus with diabetic neuropathy, unspecified; K52.0 Gastroenteritis and colitis due to radiation; M06.9 Rheumatoid arthritis, unspecified; M79.7 Fibromyalgia; G47.30 Sleep apnea, unspecified; F43.10 Post-traumatic stress disorder, unspecified; G89.29 Other chronic pain; F17.210 Nicotine dependence, cigarettes, uncomplicated; Z74.01 Bed confinement status; Z85.41 Personal history of malignant neoplasm of cervix uteri; Z86.73 Personal history of transient ischemic attack (TIA), and cerebral infarction without residual deficits; Z92.21 Personal history of antineoplastic chemotherapy; Z92.3 Personal history of irradiation; Z98.0 Intestinal bypass and anastomosis status; Z91.040 Latex allergy status; Z88.0 Allergy status to penicillin; Z88.2 Allergy status to sulfonamides; Z88.8 Allergy status to other drugs, medicaments and biological substances; Z91.048 Other nonmedicinal substance allergy status
CPT/HCPCS: 99283